=== PATIENT | female | born 1950 | race Caucasian/White ===

== ENCOUNTER 2019-02-28 13:55 | Emergency (ER) | payer MEDICARE, OTHER ==
[~2019-02-28] VITALS: Ht 165 cm; Wt 90.9 kg
[2019-02-28] MEDS ORDERED: NS IV 500 ML 500 ML IV ONE (14:27)
[2019-02-28 14:32] LABS: BASOPHILS % (AUTO) 0 % (0-10); EOSINOPHILS # (AUTO) 0.2 10^3/uL (0.0-0.3); EOSINOPHILS % (AUTO) 3 % (0-10); HEMATOCRIT 39 % (35-52); HEMOGLOBIN 13.4 G/DL (11.5-16.0); LYMPHOCYTES # (AUTO) 1.4 X 10^3 (1.0-4.0); LYMPHOCYTES % (AUTO) 21 % (12-44); MEAN CORPUSCULAR HEMOGLOBIN 28 PG (25-34); MEAN CORPUSCULAR HGB CONC 34 G/DL (32-36); MEAN CORPUSCULAR VOLUME 83 FL (80-99); MEAN PLATELET VOLUME 9.3 FL (7.4-10.4); MONOCYTES # (AUTO) 0.3 X 10^3 (0.0-1.0); MONOCYTES % (AUTO) 5 % (0-12); NEUTROPHILS # (AUTO) 4.9 X 10^3 (1.8-7.8); NEUTROPHILS % (AUTO) 72 % (42-75); PLATELET COUNT 244 10^3/uL (130-400); RED CELL DISTRIBUTION WIDTH 13.4 % (10.0-14.5); WHITE BLOOD COUNT 6.9 10^3/uL (4.3-11.0)
--- NOTE | 2019-02-28 14:43 | ED GU-Female ---
General Chief Complaint: [employer] Stated Complaint: ABNORMAL US Nursing Triage Note: HX OF VAGINAL BLEEDING BUT YESTERDAY IT BECAME HEAVY AND TODAY IS PASSING LARGE CLOTS. BROUGHT OVER FROM ULTRASOUND. Nursing Sepsis Screen: No Definite Risk Source: patient, spouse Exam Limitations: no limitations History of Present Illness Date Seen by Provider: Feb 28, 2019 Time Seen by Provider: 14:15 Initial Comments Patient presents to ER by private conveyance from Dr. Urban's clinic with chief complaint last 3 days having some vaginal bleeding being worked up. A CT was obtained. Some samples of the cervix were obtained in the clinic today. It causes her some discomfort but she does not want anything for the pain right now. She had blood obtained couple days ago by Shira maynard and hemoglobin that point was reported as 14 with a hematocrit of 39% when she called report. The patient's not having any nausea but she has had some dysuria with history of recent UTIs. She also has IBS C and had a good bowel movement yesterday. Her last oral intake was this morning at about 8:00 in the morning. She has a history of cholecystectomy and appendectomy but no hysterectomy or tubal ligation. She does not follow with a machine former routinely. Allergies and Home Medications Allergies Coded Allergies: Penicillins (Verified Allergy, Severe, SOA, 02/28/19) ciprofloxacin (Verified Allergy, Severe, BURNING SENSATION, 02/28/19) Sulfa (Sulfonamide Antibiotics) (Verified Allergy, Unknown, 02/28/19) bacitracin (Verified Allergy, Unknown, 02/28/19) Patient Home Medication List Home Medication List Reviewed: Yes Review of Systems Review of Systems Constitutional: No chills, No diaphoresis EENTM: No ear discharge, No ear pain Respiratory: No cough, No short of breath Cardiovascular: No chest pain, No edema Gastrointestinal: No abdominal pain, No nausea, No vomiting Genitourinary: burning, discharge (bloody), dysuria Musculoskeletal: No back pain, No joint pain Past Dzdkdop-Dczbuq-Mzopxq Hx Patient Social History Alcohol Use: Denies Use Recreational Drug Use: No Smoking Status: Never a Smoker Recent Foreign Travel: No Contact w/Someone Who Travel: No Recent Infectious Disease Expo: No Recent Hopitalizations: No Past Medical History Surgeries: Yes Appendectomy, Gallbladder, Tonsillectomy Respiratory: No Cardiac: Yes Hypertension Neurological: Yes Traumatic Brain Injury Genitourinary: No Gastrointestinal: No Musculoskeletal: No Endocrine: Yes (PRE DIABETIC) Cancer: No Psychosocial: No Integumentary: No Physical Exam Vital Signs Vital Signs - First Documented 02/28/19 14:02 Temp 36.4 Pulse 88 Resp 16 B/P (MAP) 109/71 (84) Pulse Ox 96 O2 Delivery Room Air Capillary Refill : Less Than 3 Seconds Height, Weight, BMI Height: '" Weight: lbs. oz. kg; 33.00 BMI Method: General Appearance: WD/WN, no apparent distress HEENT: PERRL/EOMI, pharynx normal Neck: full range of motion, normal inspection Cardiovascular: normal peripheral pulses, regular rate, rhythm Respiratory: no respiratory distress, no accessory muscle use Gastrointestinal: normal bowel sounds, non tender, soft, no organomegaly Pelvic: normal external exam, discharge (bloody discharge with clots seen in the vaginal vault mild amount approximately 30-45 cc total); No mass; other (cervix was not able to be visualized on speculum examination.) Progress/Results/Core Measures Suspected Sepsis Recent Fever Within 48 Hours: No Infection Criteria Present: None New/Unexplained Altered Menta: No Sepsis Screen: No Definite Risk SIRS Temperature: Pulse: 88 Respiratory Rate: 16 Laboratory Tests 02/28/19 14:15: White Blood Count 6.9 Blood Pressure 109 /71 Mean: 84 Laboratory Tests 02/28/19 14:15: Creatinine 0.93, Platelet Count 244, Total Bilirubin 1.1H Results/Orders Lab Results Laboratory Tests Test 02/28/19 14:15 02/28/19 14:50 Range/Units White Blood Count 6.9 4.3-11.0 10^3/uL Red Blood Count 4.74 4.35-5.85 10^6/uL Hemoglobin 13.4 11.5-16.0 G/DL Hematocrit 39 35-52 % Mean Corpuscular Volume 83 80-99 FL Mean Corpuscular Hemoglobin 28 25-34 PG Mean Corpuscular Hemoglobin Concent 34 32-36 G/DL Red Cell Distribution Width 13.4 10.0-14.5 % Platelet Count 244 130-400 10^3/uL Mean Platelet Volume 9.3 7.4-10.4 FL Neutrophils (%) (Auto) 72 42-75 % Lymphocytes (%) (Auto) 21 12-44 % Monocytes (%) (Auto) 5 0-12 % Eosinophils (%) (Auto) 3 0-10 % Basophils (%) (Auto) 0 0-10 % Neutrophils # (Auto) 4.9 1.8-7.8 X 10^3 Lymphocytes # (Auto) 1.4 1.0-4.0 X 10^3 Monocytes # (Auto) 0.3 0.0-1.0 X 10^3 Eosinophils # (Auto) 0.2 0.0-0.3 10^3/uL Basophils # (Auto) 0.0 0.0-0.1 10^3/uL Sodium Level 134 L 135-145 MMOL/L Potassium Level 3.9 3.6-5.0 MMOL/L Chloride Level 96 L 98-107 MMOL/L Carbon Dioxide Level 29 21-32 MMOL/L Anion Gap 9 5-14 MMOL/L Blood Urea Nitrogen 11 7-18 MG/DL Creatinine 0.93 0.60-1.30 MG/DL Estimat Glomerular Filtration Rate 60 BUN/Creatinine Ratio 12 Glucose Level 351 H 70-105 MG/DL Calcium Level 9.0 8.5-10.1 MG/DL Corrected Calcium 9.2 8.5-10.1 MG/DL Total Bilirubin 1.1 H 0.1-1.0 MG/DL Aspartate Amino Transf (AST/SGOT) 17 5-34 U/L Alanine Aminotransferase (ALT/SGPT) 11 0-55 U/L Alkaline Phosphatase 98 40-136 U/L Total Protein 7.5 6.4-8.2 GM/DL Albumin 3.7 3.2-4.5 GM/DL Urine Color YELLOW Urine Clarity VERY CLOUDY H Urine pH 5 5-9 Urine Specific [place] 1.010 L 1.016-1.022 Urine Protein 2+ H NEGATIVE Urine Glucose (UA) 4+ H NEGATIVE Urine Ketones 3+ H NEGATIVE Urine Nitrite POSITIVE H NEGATIVE Urine Bilirubin NEGATIVE NEGATIVE Urine Urobilinogen NORMAL NORMAL MG/DL Urine Leukocyte Esterase 3+ H NEGATIVE Urine RBC (Auto) 5+ H NEGATIVE Urine RBC NONE /HPF Urine WBC TNTC H /HPF Urine Crystals NONE /LPF Urine Bacteria LARGE H /HPF Urine Casts NONE /LPF Urine Mucus NEGATIVE /LPF Urine Culture Indicated YES Micro Results Microbiology 02/28/19 Wet Prep - Final, Complete My Orders Orders - KWASI PEREZ Cbc With Automated Diff (02/28/19 14:03) Comprehensive Metabolic Panel (02/28/19 14:03) Ua Culture If Indicated (02/28/19 14:03) Straight Cath For Spec.-Adult (02/28/19 14:08) Ed Iv/Invasive Line Start (02/28/19 14:27) Ns Iv 500 Ml (Sodium Chloride 0.9%) (02/28/19 14:27) Wet Prep (02/28/19 14:27) Insulin (Regular) Human (Humulin R (Per (02/28/19 15:30) Urine Culture (02/28/19 14:50) Ceftriaxone For Iv Use (Rocephin For I (02/28/19 16:15) Accucheck Stat ONCE (02/28/19 16:16) Medications Given in ED Current Medications Medications Dose Ordered Sig/Jorge A Route Start Time Stop Time Status Last Admin Dose Admin Ceftriaxone Sodium 1000 mg/ Sterile Water 10 ml @ 200 mls/hr ONCE ONCE IV 02/28/19 16:15 02/28/19 16:17 DC 02/28/19 16:32 200 MLS/HR Insulin Human Regular 5 unit ONCE ONCE SC 02/28/19 15:30 02/28/19 15:31 DC 02/28/19 15:32 5 UNIT Sodium Chloride 500 ml @ 0 mls/hr Q0M ONCE IV 02/28/19 14:27 02/28/19 14:28 DC 02/28/19 14:32 500 MLS/HR Vital Signs/I&O 02/28/19 14:02 Temp 36.4 Pulse 88 Resp 16 B/P (MAP) 109/71 (84) Pulse Ox 96 O2 Delivery Room Air Capillary Refill : Less Than 3 Seconds Blood Pressure Mean: 84 Progress Note #1: Time: 16:16 Progress Note Urinalysis consistent with a bladder infection. We'll give her Rocephin. Her allergy to penicillin is very vague. We put a call into Dr. Lee the gy necologist on-call but he is in the middle of a and let them to call us back. The patient is okay with waiting. Hemoglobin is stable. Plan to repeat Accu-Chek after the 5 units of regular insulin were given for her elevated blood sugar. She is clearly diabetic based on a random blood sugar above 220. Did not visualize cervix and did not think it was a very good idea to clean the clots out since her bleeding is hemostatic at this time. Progress Note #2: Time: 16:41 Progress Note Blood sugars improved to 289. We'll have her follow-up with primary care in short order. Called left a voicemail with her primary care clinic. Diagnostic Imaging Diagonstic Imaging: CT Comments [facility]. [place], [place] NAME: PATRICK NAVARRO [place] REC#: [id number] PT STATUS: REG CLI : 1950 PHYSICIAN: SHIRA MAYNARDP ADMIT DATE: 02/28/19/RAD Draft Date of Exam:02/28/19 CT ABDOMEN/PELVIS W WO PROCEDURE: CT abdomen and pelvis with and without contrast. TECHNIQUE: Precontrast acquisitions were acquired through the abdomen and pelvis. Multiple contiguous axial images were obtained through the abdomen and pelvis after the administration of intravenous contrast. Auto Exposure Controls were utilized during the CT exam to meet ALARA standards for radiation dose reduction. INDICATION: Vaginal bleeding for the last two days. COMPARISON: No prior studies are available for comparison. FINDINGS: The lung bases are clear. No discrete liver mass is identified. Gallbladder appears to be surgically absent. No biliary ductal dilatation is seen. The pancreas and spleen are unremarkable. No adrenal mass is detected. Multiple small 2-3 mm nonobstructing calculi within the right kidney are noted. There are also multiple calculi in the left kidney, largest located in the left renal pelvis measuring approximately 15 mm x 8 mm. There is gas identified within the left renal collecting system. No definite renal parenchymal gas is present. 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 No definite ureteral or bladder calculi are seen. There is trace gas within the decompressed urinary bladder. Aorta is non-aneurysmal. No central retroperitoneal or mesenteric lymphadenopathy is seen. The small and large bowel loops are normal in caliber. There is significant diverticulosis of the sigmoid colon but no evidence of acute diverticulitis. There are enlarged lymph nodes in the pelvis in the obturator regions bilaterally. A lymph node on the right measures 3.5 x 3.0 cm. Left obturator node measures approximately 3.8 x 2.8 cm. No inguinal lymphadenopathy is seen. No free fluid or loculated fluid collection is identified. Bony structures are nonacute. IMPRESSION: 1. Bilateral nephrolithiasis. There is a large stone in the left renal pelvis producing mild hydronephrosis measuring 15 mm x 8 mm. In addition, there is a large amount of gas within the left renal collecting system consistent with emphysematous pyelitis. No ureteral calculi are seen. Trace gas in the bladder is also noted. 2. Bilateral obturator pelvic lymphadenopathy, concerning for neoplasm or lymphoma. No other areas of lymphadenopathy are identified. 3. Diverticulosis without evidence of acute diverticulitis. Report was faxed to office of Shira DUFFY by nina at 1:40 p.m. Dictated on workstation # [id number] Dict: 02/28/19 1252 Trans: 02/28/19 1338 NINA [id number] Interpreted by: LORENA YANG MD Electronically signed by: Reviewed: Reviewed by Me Consults Consults : Consulting Physician: MARIANA LEE MD Consults Notes Discussed the case with Dr. Lee and he agrees with patient following up with primary care for appropriate referral where they want to send her. Departure Communication (PCP) [id number]: Shira Maynard: Left a voicemail. 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 Decision time for Depature: 16:35 Referrals: OBINNA URBAN DNP (PCP/Family) Primary Care Physician Patient Instructions: Urinary Tract Infections in Adults Add. Discharge Instructions: Start Keflex one capsule twice a day for the next 7 days tomorrow. Drink plenty of fluids. Tomorrow call and follow-up with your primary care office to discuss further outpatient workup. All discharge instructions reviewed with patient and/or family. Voiced understa nding. Scripts Cephalexin (Keflex) 500 Mg Capsule 500 MG PO BID for 7 Days, #14 CAP 0 Refills Prov: KWASI PEREZ 02/28/19 Copy Copies To 1: RUSSELL URBAN DO KWASI PEREZ Feb 28, 2019 14:43
[2019-02-28 14:47] LABS: ALBUMIN 3.7 GM/DL (3.2-4.5); BILIRUBIN,TOTAL 1.1 MG/DL (0.1-1.0); CREATININE SERUM 0.93 MG/DL (0.60-1.30); POTASSIUM 3.9 MMOL/L (3.6-5.0); TOTAL PROTEIN 7.5 GM/DL (6.4-8.2)
[2019-02-28 15:13] LABS: BILIRUBIN,URINE NEGATIVE (NEGATIVE); CLARITY,URINE VERY CLOUDY; COLOR,URINE YELLOW; GLUCOSE, URINE (UA) 4+ (NEGATIVE); KETONES,URINE 3+ (NEGATIVE); LEUKOCYTE ESTERASE ,URINE 3+ (NEGATIVE); NITRITE,URINE POSITIVE (NEGATIVE); PH,URINE 5 (5-9); PROTEIN,URINE 2+ (NEGATIVE)
[2019-02-28 15:22] LABS: BACTERIA,URINE LARGE /HPF; WBC,URINE TNTC /HPF
[2019-02-28] MEDS ORDERED: inSUlin (REGULAR) HUMAN 1 UNIT/0.01 ML (CHARGE PER UNIT) SC ONE (15:30)
--- NOTE | 2019-02-28 15:57 | NUR ---
PT ASSISTED UP TO [facility]
[2019-02-28] MEDS ORDERED: cefTRIAXone FOR IV USE 1,000 MG in WATER (STERILE) FOR INJECTION 10 ML IV ONE (16:15)
[2019-02-28] MEDS ORDERED: CEPH-507 PO (16:50)
[2019-02-28 17:28] VITALS: BP 109/71
== END 2019-02-28 17:27 | disposition home or self-care (01) ==
LOC: EDUNIT# 13:55 → ER 13:56
DX: I77.9 Disorder of arteries and arterioles, unspecified (principal); N95.0 Postmenopausal bleeding; N39.0 Urinary tract infection, site not specified; I10 Essential (primary) hypertension; Z87.820 Personal history of traumatic brain injury; Z90.49 Acquired absence of other specified parts of digestive tract; Z88.0 Allergy status to penicillin; Z88.1 Allergy status to other antibiotic agents; Z88.2 Allergy status to sulfonamides; Z88.8 Allergy status to other drugs, medicaments and biological substances; Z90.89 Acquired absence of other organs
CPT/HCPCS: 36415; 51701; 80053; 81000; 85025; 87077; 87088; 87186; 87210; 96365; 96372

== ENCOUNTER → 2019-02-28 | Outpatient (CLI) | payer MEDICARE, OTHER ==
[~2019-02-28] MED LIST: CATHETER FLUSH 10 ML SYR IV PRN; CEPH-507 PO; HOLD METFORMIN - RECEIVED CONTRAST 20 ML VIAL IV SCH; IOHEXOL 350 MG/ML 100 ML (OMNIPAQUE 350) VIAL IV ONE; NS 100 ML (IVPB) BAG IV ONE
--- NOTE | 2019-02-28 13:40 | Diagnostic Imaging Report ---
PROCEDURE: CT abdomen and pelvis with and without contrast. TECHNIQUE: Precontrast acquisitions were acquired through the abdomen and pelvis. Multiple contiguous axial images were obtained through the abdomen and pelvis after the administration of intravenous contrast. Auto Exposure Controls were utilized during the CT exam to meet ALARA standards for radiation dose reduction. INDICATION: Vaginal bleeding for the last two days. COMPARISON: No prior studies are available for comparison. FINDINGS: The lung bases are clear. No discrete liver mass is identified. Gallbladder appears to be surgically absent. No biliary ductal dilatation is seen. The pancreas and spleen are unremarkable. No adrenal mass is detected. Multiple small 2-3 mm nonobstructing calculi within the right kidney are noted. There are also multiple calculi in the left kidney, largest located in the left renal pelvis measuring approximately 15 mm x 8 mm. There is gas identified within the left renal collecting system. No definite renal parenchymal gas is present. 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 No definite ureteral or bladder calculi are seen. There is trace gas within the decompressed urinary bladder. Aorta is non-aneurysmal. No central retroperitoneal or mesenteric lymphadenopathy is seen. The small and large bowel loops are normal in caliber. There is significant diverticulosis of the sigmoid colon but no evidence of acute diverticulitis. There are enlarged lymph nodes in the pelvis in the obturator regions bilaterally. A lymph node on the right measures 3.5 x 3.0 cm. Left obturator node measures approximately 3.8 x 2.8 cm. No inguinal lymphadenopathy is seen. No free fluid or loculated fluid collection is identified. Bony structures are nonacute. IMPRESSION: 1. Bilateral nephrolithiasis. There is a large stone in the left renal pelvis producing mild hydronephrosis measuring 15 mm x 8 mm. In addition, there is a large amount of gas within the left renal collecting system consistent with emphysematous pyelitis. No ureteral calculi are seen. Trace gas in the bladder is also noted. 2. Bilateral obturator pelvic lymphadenopathy, concerning for neoplasm or lymphoma. No other areas of lymphadenopathy are identified. 3. Diverticulosis without evidence of acute diverticulitis. Report was faxed to office of Alicja DUFFY by chepe at 1:40 p.m. Dictated by: Dictated on workstation # [id number]
--- NOTE | 2019-02-28 14:32 | Diagnostic Imaging Report ---
PROCEDURE: US Non-OB pelvis comp/trans. TECHNIQUE: Multiple realtime grayscale images were obtained of the pelvis in various projections endovaginally. Transabdominal imaging was also performed. INDICATION: Vaginal bleeding. FINDINGS: The uterus measures 7.8 x 5.0 x 4.9 cm. Endometrium is abnormally thickened measuring up to 19 mm. Ill-defined rounded area of heterogeneity in the region of the cervix is noted measuring approximately 14 mm x 11 mm. Cervical mass cannot be excluded. Ovaries were not visualized. No adnexal mass is seen. IMPRESSION: 1. Abnormally thickened endometrium up to 19 mm. Endometrial neoplasia cannot be entirely excluded. 2. Findings suspicious for a small cervical mass. Dictated by: Dictated on workstation # [id number]
== END ==
LOC: RAD 11:58
PROVIDERS: ATTEND Nurse Practitioner
DX: Z01.411 Encounter for gynecological examination (general) (routine) with abnormal findings (principal); N95.0 Postmenopausal bleeding; N88.8 Other specified noninflammatory disorders of cervix uteri; N13.2 Hydronephrosis with renal and ureteral calculous obstruction; R59.0 Localized enlarged lymph nodes; K57.30 Diverticulosis of large intestine without perforation or abscess without bleeding
CPT/HCPCS: 74178; 76830; 76856

== ENCOUNTER 2019-03-01 08:09 | Emergency (ER) | payer MEDICARE, OTHER ==
[~2019-03-01] VITALS: Ht 165.1 cm; Wt 90.9 kg
[~2019-03-01 08:09] MED LIST changes: -CATHETER FLUSH 10 ML SYR IV PRN; -HOLD METFORMIN - RECEIVED CONTRAST 20 ML VIAL IV SCH; -IOHEXOL 350 MG/ML 100 ML (OMNIPAQUE 350) VIAL IV ONE; -NS 100 ML (IVPB) BAG IV ONE
--- NOTE | 2019-03-01 08:32 | ED GU-Female ---
General Stated Complaint: VAGINAL BLEEDING Source: patient, family (), EMS ([facility]) Exam Limitations: no limitations History of Present Illness Date Seen by Provider: Mar 01, 2019 Time Seen by Provider: 08:06 Initial Comments Patient presents to ER from her home by EMS in [place], [place] with chief complaint of vaginal bleeding mild pelvic cramping similar to menstrual cramps. She has a known lesion and CT findings concerning for malignancy and is being worked up by Alicja Hoffman and primary care with Dr. Urban. The bleeding is going on for 3 days. He was seen in the ER yesterday by this provider and had a normal hemoglobin of 13.8. This morning she woke up with significant bright red bleeding through her clothing and pads using multiple pads per hour. EMS reports they changed her and packed her and she bled through your packing and clothing between home and the ER. She's not on a blood thinner. She does not want anything for pain. She had plans to follow-up with primary care today to further her workup. Allergies and Home Medications Allergies Coded Allergies: Penicillins (Verified Allergy, Severe, SOA, 02/28/19) ciprofloxacin (Verified Allergy, Severe, BURNING SENSATION, 02/28/19) Sulfa (Sulfonamide Antibiotics) (Verified Allergy, Unknown, 02/28/19) bacitracin (Verified Allergy, Unknown, 02/28/19) Home Medications Cephalexin 500 Mg Capsule, 500 MG PO BID Prescribed by: KWASI PEREZ on 02/28/19 1650 Patient Home Medication List Home Medication List Reviewed: Yes Review of Systems Review of Systems Constitutional: No chills, No diaphoresis EENTM: No ear discharge, No ear pain Respiratory: No cough, No short of breath Cardiovascular: No chest pain, No edema Gastrointestinal: abdominal pain; No constipation, No nausea, No vomiting Genitourinary: see HPI, discharge; denies dysuria Past Ixmwntb-Xujglc-Jdjegi Hx Patient Social History Alcohol Use: Denies Use Recreational Drug Use: No Recent Hopitalizations: No Past Medical History Surgeries: Yes Appendectomy, Gallbladder, Tonsillectomy Respiratory: No Cardiac: Yes Hypertension Neurological: Yes Traumatic Brain Injury Genitourinary: No Gastrointestinal: No Musculoskeletal: No Endocrine: Yes (PRE DIABETIC) Cancer: No Psychosocial: No Integumentary: No Physical Exam Vital Signs Vital Signs - First Documented 03/01/19 08:09 Temp 36.5 Pulse 89 Resp 18 B/P (MAP) 110/72 (85) Pulse Ox 99 O2 Delivery Room Air Capillary Refill : Height, Weight, BMI Height: '" Weight: lbs. oz. kg; 33.00 BMI Method: General Appearance: WD/WN, mild distress HEENT: PERRL/EOMI, pharynx normal Cardiovascular: normal peripheral pulses, regular rate, rhythm Respiratory: lungs clear, normal breath sounds, no respiratory distress, no accessory muscle use Gastrointestinal: normal bowel sounds, non tender, soft Pelvic: tender uterus, vaginal bleeding (probably about 500cc clot in the underwear) Extremities: normal range of motion, non-tender, normal capillary refill Neurologic/Psychiatric: no motor/sensory deficits, alert, normal mood/affect, oriented x 3 Skin: normal color, warm/dry Procedures/Interventions Lumen: triple (7 Serbian 20 cm) Central Line Procedure: betadine prep (chlorhexidine), sterile drapes applied, sterile dressing applied Position: internal jugular (R) Anesthesia: Lidocaine Volume Anesthetic (ccs): 3 Complications: none Post Position: sutured, good blood return, position confirmed w/ CXR Risks, benefits alternatives were splinted to patient she consented verbally. We checked the site using ultrasound had a good access in the right IJ so draped her out in the usual sterile fashion toward down gloves and a cap. Then accessed her right IJ using the supplied introducer needle. We used ultrasound guidance to watch the tip into the right IJ got good blood return. Easily passed a guidewire on first attempt. Made a small brody in the skin using 11 blade scalpel. Removed the needle and passed a dilator. Dilator was removed and the triple-lumen was threaded over the central lumen on the guidewire. Guidewire was removed triple-lumen was placed at 13 cm. Was stitched in place [address] aces and Biopatch was then placed. A sterile clear occlusive dressing was placed. Patient tolerated procedure well. X-ray demonstrated good position without pneumothorax or other consultation. Flushed and withdrew easily. Progress/Results/Core Measures Suspected Sepsis SIRS Temperature: Pulse: Respiratory Rate: Laboratory Tests 03/01/19 08:32: White Blood Count 8.3 Blood Pressure / Mean: Laboratory Tests 03/01/19 08:32: Creatinine 0.99, Platelet Count 257, Total Bilirubin 0.8 Results/Orders Lab Results Laboratory Tests Test 03/01/19 08:32 03/01/19 11:10 Range/Units White Blood Count 8.3 4.3-11.0 10^3/uL Red Blood Count 3.88 L 4.35-5.85 10^6/uL Hemoglobin 10.8 L 11.5-16.0 G/DL Hematocrit 32 L 35-52 % Mean Corpuscular Volume 83 80-99 FL Mean Corpuscular Hemoglobin 28 25-34 PG Mean Corpuscular Hemoglobin Concent 33 32-36 G/DL Red Cell Distribution Width 13.4 10.0-14.5 % Platelet Count 257 130-400 10^3/uL Mean Platelet Volume 9.3 7.4-10.4 FL Neutrophils (%) (Auto) 82 H 42-75 % Lymphocytes (%) (Auto) 13 12-44 % Monocytes (%) (Auto) 4 0-12 % Eosinophils (%) (Auto) 1 0-10 % Basophils (%) (Auto) 0 0-10 % Neutrophils # (Auto) 6.8 1.8-7.8 X 10^3 Lymphocytes # (Auto) 1.1 1.0-4.0 X 10^3 Monocytes # (Auto) 0.3 0.0-1.0 X 10^3 Eosinophils # (Auto) 0.1 0.0-0.3 10^3/uL Basophils # (Auto) 0.0 0.0-0.1 10^3/uL Sodium Level 137 135-145 MMOL/L Potassium Level 4.1 3.6-5.0 MMOL/L Chloride Level 100 98-107 MMOL/L Carbon Dioxide Level 25 21-32 MMOL/L Anion Gap 12 5-14 MMOL/L Blood Urea Nitrogen 13 7-18 MG/DL Creatinine 0.99 0.60-1.30 MG/DL Estimat Glomerular Filtration Rate 55 BUN/Creatinine Ratio 13 Glucose Level 374 H 70-105 MG/DL Calcium Level 8.5 8.5-10.1 MG/DL Corrected Calcium 9.1 8.5-10.1 MG/DL Total Bilirubin 0.8 0.1-1.0 MG/DL Aspartate Amino Transf (AST/SGOT) 13 5-34 U/L Alanine Aminotransferase (ALT/SGPT) 6 0-55 U/L Alkaline Phosphatase 69 40-136 U/L Total Protein 6.4 6.4-8.2 GM/DL Albumin 3.2 3.2-4.5 GM/DL Glucometer 285 H 70-110 MG/DL My Orders Orders - ANAKWASI GARRETT Cbc With Automated Diff (03/01/19 08:23) Comprehensive Metabolic Panel (03/01/19 08:23) Type And Screen (03/01/19 08:23) Ed Iv/Invasive Line Start (03/01/19 08:38) Ns Iv 1000 Ml (Sodium Chloride 0.9%) (03/01/19 08:38) Tranexamic Acid Injection (Cyklokapron I (03/01/19 08:45) Ns (Ivpb) (Sodium C... W/Tranexamic Acid (03/01/19 08:45) Insulin (Regular) Human (Humulin R (Per (03/01/19 08:45) Ceftriaxone For Iv Use (Rocephin For I (03/01/19 08:45) Vital Signs: Special (Order) (03/01/19 10:03) Consent-Obtain Consent For (03/01/19 10:03) Blood Product Warmer (03/01/19 10:03) Monitor S/S Transfusion Reacti (03/01/19 10:03) Ns Iv 500 Ml (Sodium Chloride 0.9%) (03/01/19 10:03) Initiate Massive Transfusion P (03/01/19 10:03) Chest 1 View, Ap/Pa Only (03/01/19 10:05) Fresh Frozen Plasma (03/01/19 08:32) Red Cells Leukocytes Reduced (03/01/19 08:32) Ns (Ivpb) (Sodium Chloride 0.9%) (03/01/19 10:36) Norepinephrine (Levophed) (03/01/19 10:36) Accucheck Stat ONCE (03/01/19 10:41) Medications Given in ED Current Medications Medications Dose Ordered Sig/Jorge A Route Start Time Stop Time Status Last Admin Dose Admin Ceftriaxone Sodium 1000 mg/ Sterile Water 10 ml @ 200 mls/hr ONCE ONCE IV 03/01/19 08:45 03/01/19 08:47 DC 03/01/19 09:52 200 MLS/HR Insulin Human Regular 5 unit ONCE ONCE SC 03/01/19 08:45 03/01/19 08:46 DC 03/01/19 09:08 5 UNIT Norepinephrine 4 mg STK-MED ONCE IV 03/01/19 10:36 03/01/19 10:39 DC 03/01/19 11:28 4 MG Sodium Chloride 250 ml @ ud STK-MED ONCE .ROUTE 03/01/19 10:36 03/01/19 10:39 DC 03/01/19 11:28 250 MLS/HR Tranexamic Acid 1000 mg/Sodium Chloride 110 ml @ 330 mls/hr ONCE ONCE IV 03/01/19 08:45 03/01/19 09:04 DC 03/01/19 09:09 330 MLS/HR Vital Signs/I&O 03/01/19 03/01/19 08:09 11:28 Temp 36.5 Pulse 89 95 Resp 18 18 B/P (MAP) 110/72 (85) 110/72 Pulse Ox 99 99 O2 Delivery Room Air Room Air Capillary Refill : Progress Note #1: Time: 08:36 Progress Note Blood pressure was okay initially and 10 systolic in the 90s. We've opened up the liter that she started by EMS to wide open. If Her blood pressure stays like this despite fluids we will give her some TXA. She doesn't want anything for pain at the moment. Type and screen, labs. Since she's losing whole blood it is possible that her Hemoglobin may yet be ok. Progress Note #2: Time: 10:56 Progress Note Primary care office faxed over results of ultrasound showing thickened endometrium. The preliminary results from pathology show atypical glandular cells of uncertain significance favor endometrial. Diagnostic Imaging Diagonstic Imaging: Xray Plain Films/CT/US/NM/MRI: chest (1v) Comments No pneumothorax. There is a new central line that does not cross the midline and terminates at the level of the superior vena cava just above the right atrium. NAME: PATRICK NAVARRO MED REC#: [id number] PHYSICIAN: KWASI PEREZ MD CC: OLI ROBLEDO DO; KWASI PEREZ Page 1 of 1 [facility]OLOG[facility] REPORT [facility] [place] [place] CC: OLI ROBLEDO DO; KWASI PEREZ Page 1 of 1 RADIOLOGY REPORT NAME: PATRICK NAVARRO [facility] REC#: [id number] PT STATUS: REG ER : 1950 PHYSICIAN: KWASI PEREZ MD ADMIT DATE: 03/01/19/ER Signed Date of Exam: 03/01/19 CHEST 1 VIEW, AP/PA ONLY INDICATION: Vaginal bleeding. Evaluate central line placement. TECHNIQUE: Single frontal view of the chest COMPARISON: None FINDINGS: A right internal jugular approach central line is visualized the tip overlying the mid SVC. The lung volumes are normal. No focal consolidation is seen. No large pleural effusion or pneumothorax is seen. The cardiomediastinal silhouette is normal in size and contour. No acute osseous abnormality is seen. IMPRESSION: 1. Right internal jugular central line with the tip overlying the mid SVC. No evidence of pneumothorax. Dictated by: Dictated on workstation # [id number] Dict: 03/01/19 1047 Trans: 03/01/19 1105 Interpreted by: OLI ROBLEDO DO Electronically signed by: OLI ROBLEDO DO 03/01/19 1105 Reviewed: Reviewed by Me Departure Impression Primary Impression: Hemorrhagic shock Additional Impressions: Cervical mass Vaginal bleeding Disposition: [facility] Condition: Critical Transfer Transfer Reason: Exceeds level of care Time Spoke to Accepting Phy: 10:30 Transfer Progress Notes 1055: Discussed case with Dr. Justice, critical care and they accept the patient for admission at [facility]. We discussed intervention and that we would be sending the patient with blood, Levophed and already maxed out IV fluids. Transfer Time: 11:28 Transfer Facility: [facility] Method of Transfer: Air (Aero care) Departure-Patient Inst. Referrals: RUSSELL URBAN DO (PCP) Primary Care Physician OBINNA URBAN DNP (Family) Primary Care Physician KWASI PEREZ Mar 01, 2019 08:32
[2019-03-01 08:36] LABS: BASOPHILS % (AUTO) 0 % (0-10); EOSINOPHILS # (AUTO) 0.1 10^3/uL (0.0-0.3); EOSINOPHILS % (AUTO) 1 % (0-10); HEMATOCRIT 32 % (35-52); HEMOGLOBIN 10.8 G/DL (11.5-16.0); LYMPHOCYTES # (AUTO) 1.1 X 10^3 (1.0-4.0); LYMPHOCYTES % (AUTO) 13 % (12-44); MEAN CORPUSCULAR HEMOGLOBIN 28 PG (25-34); MEAN CORPUSCULAR HGB CONC 33 G/DL (32-36); MEAN CORPUSCULAR VOLUME 83 FL (80-99); MEAN PLATELET VOLUME 9.3 FL (7.4-10.4); MONOCYTES # (AUTO) 0.3 X 10^3 (0.0-1.0); MONOCYTES % (AUTO) 4 % (0-12); NEUTROPHILS # (AUTO) 6.8 X 10^3 (1.8-7.8); NEUTROPHILS % (AUTO) 82 % (42-75); PLATELET COUNT 257 10^3/uL (130-400); RED CELL DISTRIBUTION WIDTH 13.4 % (10.0-14.5); WHITE BLOOD COUNT 8.3 10^3/uL (4.3-11.0)
[2019-03-01] MEDS ORDERED: NS IV 1000 ML 1,000 ML IV SCH (08:38)
[2019-03-01] MEDS ORDERED: TRANEXAMIC ACID INJECTION 1,000 MG in NS (IVPB) 100 ML IV ONE (08:45)
[2019-03-01] MEDS ORDERED: inSUlin (REGULAR) HUMAN 1 UNIT/0.01 ML (CHARGE PER UNIT) SC ONE (08:45)
[2019-03-01] MEDS ORDERED: cefTRIAXone FOR IV USE 1,000 MG in WATER (STERILE) FOR INJECTION 10 ML IV ONE (08:45)
[2019-03-01 08:53] LABS: ALBUMIN 3.2 GM/DL (3.2-4.5); BILIRUBIN,TOTAL 0.8 MG/DL (0.1-1.0); CALCIUM 8.5 MG/DL (8.5-10.1); CREATININE SERUM 0.99 MG/DL (0.60-1.30); POTASSIUM 4.1 MMOL/L (3.6-5.0); TOTAL PROTEIN 6.4 GM/DL (6.4-8.2)
[2019-03-01] MEDS: TRANEXAMIC ACID INJECTION 1,000 MG in NS (IVPB) 250 ML IV SCH ×2 (09:08→09:27)
--- NOTE | 2019-03-01 09:53 | NUR ---
SYSTOLIC B/P 60 NOTIFED. Addendum: 03/01/19 at 1004 by PMCCLURE PLACED IN PLACED IN [facility]
[2019-03-01] MEDS ORDERED: NS IV 500 ML 500 ML IV SCH (10:03)
--- NOTE | 2019-03-01 10:03 | NUR ---
CALLED LAB FOR BLOOD.
--- NOTE | 2019-03-01 10:04 | NUR ---
B/P 103/55
--- NOTE | 2019-03-01 10:04 | NUR ---
Blood bank contacted, massive transfusion protocol initiated at this time per Dr Ortez order
--- NOTE | 2019-03-01 10:06 | NUR ---
EMS FLUIDS IN
--- NOTE | 2019-03-01 10:06 | NUR ---
DR TO ROOM TO PLACE CENTRAL LINE
--- NOTE | 2019-03-01 10:11 | NUR ---
CONSENT SIGNED FOR BLOOD AND CENTRAL LINE [facility] PATIENT GAVE VERBAL CONSENT. Alec GARCIA RN WITNESS.
--- NOTE | 2019-03-01 10:28 | NUR ---
CENTRAL LINE PLACED BY DR PEREZ
[2019-03-01] MEDS ORDERED: NOREPINEPHRINE 4 MG/4 ML (LEVOPHED) AMP IV ONE (10:36)
[2019-03-01] MEDS ORDERED: NS (IVPB) 250 ML ONE (10:36)
--- NOTE | 2019-03-01 10:38 | NUR ---
ON DISCHARGE 2 UNITS OF BLOOD INFUSED AND 2 UNITS OF FFP. TXA CON'T TO INFUSE PER INFUSION PUMB. PATIENT CHANCED ON DISCHARGE. LG CLOT'S NOTED IN PAD.
--- NOTE | 2019-03-01 10:40 | NUR ---
1ST UNIT IN 2ND HUNG
--- NOTE | 2019-03-01 10:42 | NUR ---
1042 1ST UNIT STARTED 1042 INFUSED 1054 1055 FFP STARTED INFUSED 1102 1032 2 UNIT OF BLOOD STARTED INFUSED 1040 1103 FFP INFUSED 1109
--- NOTE | 2019-03-01 10:44 | NUR ---
David brewer in ED - 03/01/19 at 1046 by PMCCLURE CEBTRAL LINE OK TO USE
--- NOTE | 2019-03-01 10:44 | NUR ---
CENTRAL LINE CLEARED TO USE BLOOD CONNECTED TO CENTRAL LINE
--- NOTE | 2019-03-01 10:50 | Diagnostic Imaging Report ---
INDICATION: Vaginal bleeding. Evaluate central line placement. TECHNIQUE: Single frontal view of the chest COMPARISON: None FINDINGS: A right internal jugular approach central line is visualized the tip overlying the mid SVC. The lung volumes are normal. No focal consolidation is seen. No large pleural effusion or pneumothorax is seen. The cardiomediastinal silhouette is normal in size and contour. No acute osseous abnormality is seen. IMPRESSION: 1. Right internal jugular central line with the tip overlying the mid SVC. No evidence of pneumothorax. Dictated by: Dictated on workstation # [id number]
[2019-03-01 11:28] VITALS: BP 110/72
== END 2019-03-01 11:36 | disposition short-term general hospital (02) ==
LOC: EDUNIT# 08:09 → ER 08:10
DX: R57.8 Other shock (principal); N88.8 Other specified noninflammatory disorders of cervix uteri; N93.9 Abnormal uterine and vaginal bleeding, unspecified; I10 Essential (primary) hypertension; Z87.820 Personal history of traumatic brain injury; Z90.49 Acquired absence of other specified parts of digestive tract; Z90.89 Acquired absence of other organs; Z88.0 Allergy status to penicillin; Z88.2 Allergy status to sulfonamides; Z88.1 Allergy status to other antibiotic agents; Z88.8 Allergy status to other drugs, medicaments and biological substances
CPT/HCPCS: 36415; 71045; 80053; 82962; 85025; 86850; 86900; 86901; 86920; 99291; 99292

== ENCOUNTER 2019-05-18 11:32 | Outpatient (CLI) | payer MEDICARE, OTHER ==
[2019-05-18 11:59] LABS: BASOPHILS % (AUTO) 0 % (0-10); EOSINOPHILS # (AUTO) 0.2 10^3/uL (0.0-0.3); EOSINOPHILS % (AUTO) 2 % (0-10); HEMATOCRIT 32 % (35-52); HEMOGLOBIN 10.6 G/DL (11.5-16.0); LYMPHOCYTES # (AUTO) 0.6 X 10^3 (1.0-4.0); LYMPHOCYTES % (AUTO) 8 % (12-44); MEAN CORPUSCULAR HEMOGLOBIN 30 PG (25-34); MEAN CORPUSCULAR HGB CONC 33 G/DL (32-36); MEAN CORPUSCULAR VOLUME 91 FL (80-99); MEAN PLATELET VOLUME 8.6 FL (7.4-10.4); MONOCYTES # (AUTO) 0.7 X 10^3 (0.0-1.0); MONOCYTES % (AUTO) 9 % (0-12); NEUTROPHILS # (AUTO) 5.6 X 10^3 (1.8-7.8); NEUTROPHILS % (AUTO) 80 % (42-75); PLATELET COUNT 185 10^3/uL (130-400); RED CELL DISTRIBUTION WIDTH 17.6 % (10.0-14.5)
[2019-05-18 12:31] LABS: ALANINE AMINOTRANSFERASE 8 U/L (0-55); ALBUMIN 3.3 GM/DL (3.2-4.5); ALKALINE PHOSPHATASE 61 U/L (40-136); BILIRUBIN,TOTAL 0.6 MG/DL (0.1-1.0); BUN/CREATININE RATIO 16; CALCIUM 8.5 MG/DL (8.5-10.1); CARBON DIOXIDE 25 MMOL/L (21-32); CHLORIDE 103 MMOL/L (98-107); CREATININE SERUM 0.64 MG/DL (0.60-1.30); GFR ESTIMATED > 60; GLUCOSE 113 MG/DL (70-105); MAGNESIUM 1.2 MG/DL (1.6-2.4); POTASSIUM 3.2 MMOL/L (3.6-5.0); SODIUM 139 MMOL/L (135-145); TOTAL PROTEIN 6.2 GM/DL (6.4-8.2)
[2019-05-18 12:53] LABS: FREE T4 (FREE THYROXINE) 1.17 NG/DL (0.70-1.48)
[2019-05-18 13:00] VITALS: BP 132/79
[2019-05-18] MEDS ORDERED: MAGNESIUM 1 GM/100 ML IVPB 200 ML IV ONE (13:15)
[2019-05-18] MEDS: LACTATED RINGERS 1,000 ML IV SCH ×2 (13:47→14:40)
== END 2019-05-18 15:50 | disposition home or self-care (01) ==
LOC: LAB 11:32 → SDC 15:50
PROVIDERS: ATTEND Nurse Practitioner Family
DX: E11.69 Type 2 diabetes mellitus with other specified complication (principal); E86.0 Dehydration; E83.42 Hypomagnesemia; D64.89 Other specified anemias; R06.09 Other forms of dyspnea
CPT/HCPCS: 36415; 80053; 82607; 83540; 83735; 84439; 84443; 85025; 85379; 86141; 96360; 96361

== ENCOUNTER 2019-05-24 12:56 | Outpatient (CLI) | payer MEDICARE, OTHER ==
[2019-05-24] MEDS ORDERED: MAGNESIUM 1 GM/100 ML IVPB 200 ML IV ONE (13:08)
[2019-05-24] MEDS ORDERED: LACTATED RINGERS 2,000 ML IV ONE (13:08)
[2019-05-24 13:25] VITALS: BP 143/73
[2019-05-24] MEDS ORDERED: CATHETER FLUSH 10 ML SYR IV PRN (13:30)
[2019-05-24] MEDS: MAGNESIUM 1 GM/D5W 100 ML IVPB IV SCH ×2 (13:30→14:29)
[2019-05-24] MEDS ORDERED: LACTATED RINGERS 1,000 ML IV SCH (13:30)
== END 2019-05-24 16:10 | disposition home or self-care (01) ==
LOC: SDC 12:56
PROVIDERS: ATTEND Nurse Practitioner Family
DX: E86.0 Dehydration (principal); E83.42 Hypomagnesemia; Z88.0 Allergy status to penicillin; Z88.2 Allergy status to sulfonamides

== ENCOUNTER → 2019-05-28 | Outpatient (CLI) | payer MEDICARE, OTHER | LOC: WOUNDCARE 14:01 | PROVIDERS: ATTEND Preventive Medicine Undersea and Hyperbaric Medicine | DX: I96 Gangrene, not elsewhere classified (principal); L89.323 Pressure ulcer of left buttock, stage 3; D68.9 Coagulation defect, unspecified; N39.0 Urinary tract infection, site not specified | CPT/HCPCS: 11104; 99212 ==

== ENCOUNTER 2019-06-04 15:19 | Emergency (ER) | payer MEDICARE, OTHER ==
[~2019-06-04] VITALS: Ht 165.1 cm; Wt 84.0 kg
--- NOTE | 2019-06-04 15:48 | ED Respiratory ---
General Chief Complaint: Respiratory Problems Stated Complaint: SOA Source: patient Exam Limitations: no limitations History of Present Illness Date Seen by Provider: Jun 04, 2019 Time Seen by Provider: 15:38 Initial Comments Patient presents with shortness of air for the past 3 days, significantly worse today. Worse with exertion. History of present illness, patient recently diagnosed with cervical cancer and has been getting chemotherapy and radiation therapy in [place]. Denies history of blood clots, taking any anticoagulants. Denies any lower extremity or calf pain or unusual swelling. Denies recent illness, upper respiratory sx, fever or chills. Allergies and Home Medications Allergies Coded Allergies: Penicillins (Verified Allergy, Severe, SOA, 02/28/19) ciprofloxacin (Verified Allergy, Severe, BURNING SENSATION, 02/28/19) Sulfa (Sulfonamide Antibiotics) (Verified Allergy, Unknown, 02/28/19) bacitracin (Verified Allergy, Unknown, 02/28/19) Home Medications Albuterol Sulfate 1 Puff Puff, 2 PUFF IH Q4H PRN for cough 1 PUFF = 90 MCG Prescribed by: BINDU JACOBSON on 06/04/19 182 Cephalexin 500 Mg Capsule, 500 MG PO BID Prescribed by: KWASI PEREZ on 02/28/19 1650 Patient Home Medication List Home Medication List Reviewed: Yes Review of Systems Review of Systems Constitutional: see HPI; No dizziness, No fever; malaise; No weakness EENTM: no symptoms reported Respiratory: see HPI, dyspnea on exertion; No hemoptysis, No orthopnea; short of breath; No stridor, No wheezing Cardiovascular: see HPI, chest pain (tightness), edema (chronic, no change); No palpitations, No syncope, No vascular heart diseas Gastrointestinal: No abdominal pain, No loss of appetite, No nausea, No vomiting Musculoskeletal: No back pain, No joint pain Skin: see HPI; No change in color, No pruritus, No rash Past Ojucnwm-Kwyfnv-Bnketn Hx Patient Social History Alcohol Use: Denies Use Recreational Drug Use: No Smoking Status: Never a Smoker 2nd Hand Smoke Exposure: No Recent Foreign Travel: No Contact w/Someone Who Travel: No Recent Hopitalizations: No Physical Abuse: No Sexual Abuse: No Mistreated: No Fear: No Seasonal Allergies Seasonal Allergies: No Past Medical History Surgeries: Yes (Brachytherapy) Appendectomy, Gallbladder, Tonsillectomy Respiratory: No Cardiac: Yes Hypertension Neurological: Yes Traumatic Brain Injury Genitourinary: No Gastrointestinal: No Musculoskeletal: No Endocrine: Yes (PRE DIABETIC) HEENT: No Cancer: Yes Cervical Did You Recieve Any Treatments: Yes What Type of Treatment Did You: Radiation Psychosocial: No Integumentary: No Blood Disorders: No Physical Exam Vital Signs - First Documented 06/04/19 15:25 Temp 37.1 Pulse 89 Resp 23 B/P (MAP) 157/68 (97) Pulse Ox 94 O2 Delivery Room Air Capillary Refill : Height: '" Weight: lbs. oz. kg; 33.00 BMI Method: General Appearance: WD/WN, no apparent distress HEENT: normal ENT inspection, pharynx normal Neck: non-tender, supple Respiratory: chest non-tender, lungs clear, normal breath sounds, no res piratory distress, no accessory muscle use Cardiovascular: regular rate, rhythm, no edema, no gallop, no JVD Gastrointestinal: normal bowel sounds, non tender, soft; No distended, No guarding, No rebound Extremities: normal range of motion, non-tender, normal inspection, no calf tenderness, normal capillary refill Neurologic/Psychiatric: no motor/sensory deficits, alert, normal mood/affect, oriented x 3 Skin: normal color, warm/dry Progress/Results/Core Measures Suspected Sepsis SIRS Temperature: Pulse: Respiratory Rate: Laboratory Tests 06/04/19 15:35: White Blood Count 1.4*L Blood Pressure / Mean: Laboratory Tests 06/04/19 15:35: Creatinine 0.57L, Platelet Count 169, Total Bilirubin 0.5 Results/Orders Lab Results Laboratory Tests Test 06/04/19 15:35 Range/Units White Blood Count 1.4 *L 4.3-11.0 10^3/uL Red Blood Count 3.11 L 4.35-5.85 10^6/uL Hemoglobin 9.6 L 11.5-16.0 G/DL Hematocrit 29 L 35-52 % Mean Corpuscular Volume 93 80-99 FL Mean Corpuscular Hemoglobin 31 25-34 PG Mean Corpuscular Hemoglobin Concent 33 32-36 G/DL Red Cell Distribution Width 16.1 H 10.0-14.5 % Platelet Count 169 130-400 10^3/uL Mean Platelet Volume 8.3 7.4-10.4 FL Neutrophils (%) (Auto) 7 L 42-75 % Lymphocytes (%) (Auto) 51 H 12-44 % Monocytes (%) (Auto) 29 H 0-12 % Eosinophils (%) (Auto) 13 H 0-10 % Basophils (%) (Auto) 1 0-10 % Neutrophils # (Auto) 0.1 L 1.8-7.8 X 10^3 Lymphocytes # (Auto) 0.7 L 1.0-4.0 X 10^3 Monocytes # (Auto) 0.7 0.0-1.0 X 10^3 Eosinophils # (Auto) 0.2 0.0-0.3 10^3/uL Basophils # (Auto) 0.0 0.0-0.1 10^3/uL Neutrophils % (Manual) 2 % Lymphocytes % (Manual) 68 % Monocytes % (Manual) 14 % Eosinophils % (Manual) 14 % Basophils % (Manual) 0 % Band Neutrophils 2 % Anisocytosis SLIGHT D-Dimer 1.43 H 0.00-0.49 UG/ML Sodium Level 141 135-145 MMOL/L Potassium Level 3.4 L 3.6-5.0 MMOL/L Chloride Level 100 98-107 MMOL/L Carbon Dioxide Level 27 21-32 MMOL/L Anion Gap 14 5-14 MMOL/L Blood Urea Nitrogen 14 7-18 MG/DL Creatinine 0.57 L 0.60-1.30 MG/DL Estimat Glomerular Filtration Rate > 60 BUN/Creatinine Ratio 25 Glucose Level 103 70-105 MG/DL Calcium Level 8.7 8.5-10.1 MG/DL Corrected Calcium 9.3 8.5-10.1 MG/DL Magnesium Level 1.6 1.6-2.4 MG/DL Total Bilirubin 0.5 0.1-1.0 MG/DL Aspartate Amino Transf (AST/SGOT) 17 5-34 U/L Alanine Aminotransferase (ALT/SGPT) 7 0-55 U/L Alkaline Phosphatase 58 40-136 U/L Troponin I < 0.30 <0.30 NG/ML Pro-B-Type Natriuretic Peptide 409.0 H <75.0 PG/ML Total Protein 6.5 6.4-8.2 GM/DL Albumin 3.2 3.2-4.5 GM/DL Micro Results Microbiology 06/04/19 Influenza Types A,B Antigen (BRITTANY) - Final, Complete My Orders Orders - BINDU JACOBSON DO Ekg Tracing (06/04/19 15:34) Ed Iv/Invasive Line Start (06/04/19 15:34) Cbc With Automated Diff (06/04/19 15:34) Comprehensive Metabolic Panel (06/04/19 15:34) Fibrin Degradation Products (06/04/19 15:34) Lactic Acid Analyzer (06/04/19 15:41) Influenza A And B Antigens (06/04/19 15:41) Chest 1 View Ap/Pa Only (06/04/19 15:41) Troponin I Fs (06/04/19 15:41) Probnp Fs (06/04/19 15:41) Magnesium (06/04/19 15:41) Manual Differential (06/04/19 15:35) Ct Angio Chest W (06/04/19 16:41) Iohexol Injection (Omnipaque 350 Mg/Ml 1 (06/04/19 17:00) Received Contrast (Hold Metformin- Contr (06/04/19 17:00) Sodium Chloride Flush (Catheter Flush Sy (06/04/19 17:00) Ns (Ivpb) (Sodium Chloride 0.9% Ivpb Bag (06/04/19 17:00) Albuterol Pre-Mix Nebs (Rt) (Proventil (06/04/19 17:45) Svn Small Volume Nebulizer (06/04/19 17:44) Medications Given in ED Current Medications Medications Dose Ordered Sig/Jorge A Route Start Time Stop Time Status Last Admin Dose Admin Albuterol Sulfate 2.5 mg ONCE ONCE INH 06/04/19 17:45 06/04/19 17:46 DC 06/04/19 17:55 2.5 MG Iohexol 125 ml ONCE ONCE IV 06/04/19 17:00 06/04/19 17:01 DC 06/04/19 17:07 125 ML Sodium Chloride 10 ml NEEDED PRN IV 06/04/19 17:00 06/04/19 17:07 10 ML Sodium Chloride 100 ml ONCE ONCE IV 06/04/19 17:00 06/04/19 17:01 DC 06/04/19 17:07 80 ML Vital Signs/I&O 06/04/19 15:25 Temp 37.1 Pulse 89 Resp 23 B/P (MAP) 157/68 (97) Pulse Ox 94 O2 Delivery Room Air Capillary Refill : Progress Note : Time: 18:11 Progress Note some alleviation of SOA p albuterol neb 1820- called [facility], spoke to on-call Oncology (covering for Dr De La Torre), Dr Glasgow. Informed of pt HPI, labs and RAD studies done in ER today w no obvious cause for pt sx of SOA at rest. Agreed w routine f/u as scheduled on 06/06 @ [facility]. do not believe that "small pleural effusion" is cause of sx. Further eval per [facility] on 06/06 if symptoms persist or progress. ECG Initial ECG Impression Date: Jun 04, 2019 Initial ECG Impression Time: 15:25 Initial ECG Rate: 90 Initial ECG Rhythm: Normal Sinus Initial ECG Intervals: Normal Initial ECG Impression: Normal Departure Impression Primary Impression: Dyspnea Qualified Codes: R06.00 - Dyspnea, unspecified Additional Impressions: Neutropenia Qualified Codes: D70.1 - Agranulocytosis secondary to cancer chemotherapy; T45.1X5A - Adverse effect of antineoplastic and immunosuppressive drugs, initial encounter History of chemotherapy Disposition: HOME, SELF-CARE Condition: Improved Departure-Patient Inst. Referrals: RUSSELL OSORIO DO (PCP) Primary Care Physician OBINNA OSORIO DNP (Family) Primary Care Physician Scripts Albuterol Sulfate (PROAIR HFA) 1 Puff Puff 2 PUFF IH Q4H PRN for cough, #1 PUFF 1 PUFF = 90 MCG Prov: BINDU JACOBSON DO 06/04/19 BINDU JACOBSON DO Jun 04, 2019 15:48
[2019-06-04 15:50] LABS: BASOPHILS % (AUTO) 1 % (0-10); EOSINOPHILS # (AUTO) 0.2 10^3/uL (0.0-0.3); EOSINOPHILS % (AUTO) 13 % (0-10); HEMATOCRIT 29 % (35-52); HEMOGLOBIN 9.6 G/DL (11.5-16.0); LYMPHOCYTES # (AUTO) 0.7 X 10^3 (1.0-4.0); LYMPHOCYTES % (AUTO) 51 % (12-44); MEAN CORPUSCULAR HEMOGLOBIN 31 PG (25-34); MEAN CORPUSCULAR HGB CONC 33 G/DL (32-36); MEAN CORPUSCULAR VOLUME 93 FL (80-99); MEAN PLATELET VOLUME 8.3 FL (7.4-10.4); MONOCYTES # (AUTO) 0.7 X 10^3 (0.0-1.0); MONOCYTES % (AUTO) 29 % (0-12); NEUTROPHILS # (AUTO) 0.1 X 10^3 (1.8-7.8); NEUTROPHILS % (AUTO) 7 % (42-75); PLATELET COUNT 169 10^3/uL (130-400); RED CELL DISTRIBUTION WIDTH 16.1 % (10.0-14.5); WHITE BLOOD COUNT 1.4 10^3/uL (4.3-11.0)
[2019-06-04 16:06] LABS: ANISOCYTOSIS SLIGHT; BAND NEUTROPHILS 2 %; BASOPHILS % (MANUAL) 0 %; EOSINOPHILS % (MANUAL) 14 %; LYMPHOCYTES % (MANUAL) 68 %; MONOCYTES % (MANUAL) 14 %; NEUTROPHILS % (MANUAL) 2 %
--- NOTE | 2019-06-04 16:09 | Diagnostic Imaging Report ---
HISTORY: Shortness of breath, history of cervical cancer. TECHNIQUE: Single frontal view of the chest. COMPARISON: 03/01/2019. FINDINGS: There is moderate cardiomegaly with mild central vascular congestion. There is a small left pleural effusion and a minimal right pleural effusion. No pneumothorax is seen. IMPRESSION: 1. Moderate cardiomegaly with central vascular congestion. 2. Small right and minimal left pleural effusions. Dictated by: Dictated on workstation # [id number]
[2019-06-04 16:26] LABS: BUN/CREATININE RATIO 25; CARBON DIOXIDE 27 MMOL/L (21-32); CHLORIDE 100 MMOL/L (98-107); CREATININE SERUM 0.57 MG/DL (0.60-1.30); GFR ESTIMATED > 60; GLUCOSE 103 MG/DL (70-105); POTASSIUM 3.4 MMOL/L (3.6-5.0); SODIUM 141 MMOL/L (135-145)
[2019-06-04 16:27] LABS: ALANINE AMINOTRANSFERASE 7 U/L (0-55); ALBUMIN 3.2 GM/DL (3.2-4.5); ALKALINE PHOSPHATASE 58 U/L (40-136); BILIRUBIN,TOTAL 0.5 MG/DL (0.1-1.0); CALCIUM 8.7 MG/DL (8.5-10.1); TOTAL PROTEIN 6.5 GM/DL (6.4-8.2)
[2019-06-04 16:28] LABS: MAGNESIUM 1.6 MG/DL (1.6-2.4)
[2019-06-04] MEDS ORDERED: IOHEXOL 350 MG/ML 150 ML (OMNIPAQUE 350) VIAL IV ONE (17:00)
[2019-06-04] MEDS ORDERED: HOLD METFORMIN - RECEIVED CONTRAST 20 ML VIAL IV SCH (17:00)
[2019-06-04] MEDS ORDERED: NS 100 ML (IVPB) BAG IV ONE (17:00)
[2019-06-04] MEDS ORDERED: CATHETER FLUSH 10 ML SYR IV PRN (17:00)
--- NOTE | 2019-06-04 17:26 | Diagnostic Imaging Report ---
EXAMINATION: CT angiogram of the chest, 06/04/2019. TECHNIQUE: Multiple contiguous axial images were obtained through the chest after uneventful bolus administration of intravenous contrast. 3D reconstructed CTA MIP acquisitions were also performed. Auto Exposure Controls were utilized during the CT exam to meet ALARA standards for radiation dose reduction. INDICATION: Shortness of breath, elevated D-dimer. COMPARISONS: None. FINDINGS: There are no central or proximal segmental pulmonary emboli. The thoracic aorta is unremarkable. Peripheral small vessels within the lower lobes and upper lobes are not well evaluated due to poor opacification. There is a small left pleural effusion. No significant effusion with no pericardial effusion seen. The lungs demonstrate diffuse chronic change. The visualized upper abdomen demonstrates postoperative findings, hepatic steatosis, multiple nonspecific and incompletely imaged low-density lesions in the left kidney, the distribution of which suggests possible pyelonephritis; correlate with symptoms. A tiny punctate nonobstructive stone in left kidney is noted. Incompletely imaged hyperdensity in the left renal pelvis is seen. A small stone is not excluded. The renal pelvis is somewhat prominent, and although it could be due to an extrarenal pelvis, a component of hydronephrosis is not excluded; correlate with patient's symptoms. Right lateral abdominal hernia demonstrates loops of bowel extending into the soft tissues in the right lateral aspect of the upper abdomen, incompletely imaged. There is diffuse degenerative change in the osseous structures. IMPRESSION: 1. No pulmonary emboli in the proximal or central pulmonary arteries. 2. Left pleural effusion. 3. Abnormal findings in the left kidney; see above discussion and correlate with symptoms given these findings are incompletely imaged. Correlate for possible distal obstructive process. 4. Other findings as above. Dictated by: Dictated on workstation # [id number]
[2019-06-04] MEDS ORDERED: RT-ALBUTEROL SULF 2.5 MG/3 ML PRE-MIX VIAL INH ONE (17:45)
[2019-06-04] MEDS ORDERED: RT-ALBUINH IH (18:29)
[2019-06-04 18:44] VITALS: BP 118/68
== END 2019-06-04 18:44 | disposition home or self-care (01) ==
LOC: EDUNIT# 15:19 → ER FS 15:20
DX: R06.00 Dyspnea, unspecified (principal); D70.9 Neutropenia, unspecified; I10 Essential (primary) hypertension; Z87.820 Personal history of traumatic brain injury; Z85.41 Personal history of malignant neoplasm of cervix uteri; Z92.21 Personal history of antineoplastic chemotherapy; Z88.0 Allergy status to penicillin; Z88.1 Allergy status to other antibiotic agents; Z88.2 Allergy status to sulfonamides; Z90.49 Acquired absence of other specified parts of digestive tract; Z90.89 Acquired absence of other organs
CPT/HCPCS: 36415; 71045; 71275; 80053; 83735; 83880; 84484; 85007; 85027; 85379; 87804; 93005

== ENCOUNTER 2019-06-11 12:10 | Outpatient (CLI) | payer MEDICARE, OTHER ==
[2019-06-11] MEDS ORDERED: LACTATED RINGERS 1,000 ML IV SCH (12:30)
[2019-06-11 12:33] VITALS: BP 105/65
[2019-06-11 12:37] LABS: HEMOGLOBIN 10.6 G/DL (11.5-16.0); RED CELL DISTRIBUTION WIDTH 15.5 % (10.0-14.5); WHITE BLOOD COUNT 3.3 10^3/uL (4.3-11.0)
[2019-06-11] MEDS: MAGNESIUM 1 GM/D5W 100 ML IVPB IV SCH ×2 (12:49→13:48)
[2019-06-11 12:54] LABS: ALANINE AMINOTRANSFERASE 9 U/L (0-55); ALKALINE PHOSPHATASE 68 U/L (40-136); BILIRUBIN,TOTAL 0.8 MG/DL (0.1-1.0); BUN/CREATININE RATIO 12; CALCIUM 8.8 MG/DL (8.5-10.1); CARBON DIOXIDE 29 MMOL/L (21-32); CHLORIDE 102 MMOL/L (98-107); CREATININE SERUM 0.68 MG/DL (0.60-1.30); GFR ESTIMATED > 60; GLUCOSE 94 MG/DL (70-105); MAGNESIUM 1.4 MG/DL (1.6-2.4); POTASSIUM 3.4 MMOL/L (3.6-5.0); SODIUM 139 MMOL/L (135-145); TOTAL PROTEIN 6.6 GM/DL (6.4-8.2)
== END 2019-06-11 14:55 | disposition home or self-care (01) ==
LOC: SDC 12:10
PROVIDERS: ATTEND Nurse Practitioner Family
DX: E83.42 Hypomagnesemia (principal); E86.0 Dehydration
CPT/HCPCS: 36415; 80053; 83735; 85027; 96365; 96366

== ENCOUNTER → 2019-06-11 | Outpatient (CLI) | payer MEDICARE, OTHER ==
[~2019-06-11] MED LIST changes: +RT-ALBUINH IH
--- NOTE | 2019-06-11 15:37 | Diagnostic Imaging Report ---
INDICATION: Shortness of breath. TIME OF EXAM: 03:32 p.m. Correlation is made with prior chest from 06/04/2019. FINDINGS: Heart size is stable. Left basilar effusion persists. The lungs are clear. The pulmonary vascularity is normal. There is no pneumothorax. IMPRESSION: No significant change in left basilar effusion since examination from 06/04/2019. Dictated by: Dictated on workstation # [id number]
== END ==
LOC: RAD 14:25
PROVIDERS: ATTEND Nurse Practitioner Family
DX: J70.1 Chronic and other pulmonary manifestations due to radiation (principal); J90 Pleural effusion, not elsewhere classified
CPT/HCPCS: 71046

== ENCOUNTER 2019-06-15 11:13 | Emergency (ER) | payer MEDICARE, OTHER ==
[~2019-06-15] VITALS: Ht 167.7 cm; Wt 80.0 kg
--- NOTE | 2019-06-15 11:24 | ED Cough/URI ---
General Stated Complaint: VOMITING; DIARRHEA; HYPERGLYCEMIA; SOB Source: patient, family History of Present Illness Date Seen by Provider: Jun 15, 2019 Time Seen by Provider: 11:19 Initial Comments 69-year-old female presents here she "feels terrible" patient reports that yesterday she had some nausea and vomiting. That today she has a little bit shortness of breath with a mild cough. Patient also reports that her blood sugars high because she forgot to take her long-acting insulin last night. Patient has subjective fever yesterday some generalized malaise and body aches today. She does not have any chest pain. No urinary symptoms. Allergies and Home Medications Allergies Coded Allergies: Penicillins (Verified Allergy, Severe, SOA, 02/28/19) ciprofloxacin (Verified Allergy, Severe, BURNING SENSATION, 02/28/19) Sulfa (Sulfonamide Antibiotics) (Verified Allergy, Unknown, 02/28/19) bacitracin (Verified Allergy, Unknown, 02/28/19) Home Medications Albuterol Sulfate 1 Puff Puff, 2 PUFF IH Q4H PRN for cough 1 PUFF = 90 MCG Prescribed by: BINDU JACOBSON on 06/04/19 1829 Cephalexin 500 Mg Capsule, 500 MG PO BID Prescribed by: KWASI PEREZ on 02/28/19 1650 Ondansetron 4 Mg Tab.rapdis, 4 MG PO Q4M PRN for NAUSEA/VOMITING Prescribed by: ANGE MENDEZ on 06/15/19 1249 Patient Home Medication List Home Medication List Reviewed: Yes Review of Systems Review of Systems Constitutional: chills, malaise, weakness EENTM: no symptoms reported Respiratory: cough Cardiovascular: No chest pain, No palpitations Gastrointestinal: No abdominal pain; diarrhea, nausea, vomiting Genitourinary: no symptoms reported Musculoskeletal: see HPI Skin: no symptoms reported Psychiatric/Neurological: No Symptoms Reported Past Pmieked-Kryotr-Bcxxon Hx Past Med/Social Hx: Reviewed Nursing Past Med/Soc Hx Patient Social History 2nd Hand Smoke Exposure: No Recent Foreign Travel: No Recent Hopitalizations: No Seasonal Allergies Seasonal Allergies: No Past Medical History Surgeries: Yes (Brachytherapy) Appendectomy, Gallbladder, Tonsillectomy Respiratory: No Cardiac: Yes Hypertension Neurological: Yes Traumatic Brain Injury Genitourinary: No Gastrointestinal: No Musculoskeletal: No Endocrine: Yes (PRE DIABETIC) HEENT: No Cancer: Yes Cervical Did You Recieve Any Treatments: Yes What Type of Treatment Did You: Radiation Psychosocial: No Integumentary: No Blood Disorders: No Physical Exam Vital Signs - First Documented 06/15/19 11:30 Temp 37.3 Pulse 93 Resp 19 B/P (MAP) 154/71 (98) Pulse Ox 97 O2 Delivery Room Air Capillary Refill : Height: '" Weight: lbs. oz. kg; 30.00 BMI Method: General Appearance: no apparent distress Eyes: Bilateral Eye Normal Inspection HEENT: normal ENT inspection, pharynx normal Neck: full range of motion, supple Respiratory: lungs clear, normal breath sounds, no respiratory distress Cardiovascular: normal peripheral pulses, regular rate, rhythm Gastrointestinal: non tender, soft Extremities: normal range of motion Neurologic/Psychiatric: concrete block layer II-XII nml as tested, no motor/sensory deficits, alert, normal mood/affect, oriented x 3 Skin: normal color, warm/dry Progress/Results/Core Measures Suspected Sepsis SIRS Temperature: Pulse: Respiratory Rate: Laboratory Tests 06/15/19 11:30: White Blood Count 4.0L Blood Pressure / Mean: Laboratory Tests 06/15/19 11:30: Platelet Count 214 06/15/19 12:00: Creatinine 0.59L, Total Bilirubin 0.7 Results/Orders Lab Results Laboratory Tests Test 06/15/19 11:30 06/15/19 12:00 Range/Units White Blood Count 4.0 L 4.3-11.0 10^3/uL Red Blood Count 3.50 L 4.35-5.85 10^6/uL Hemoglobin 10.9 L 11.5-16.0 G/DL Hematocrit 33 L 35-52 % Mean Corpuscular Volume 95 80-99 FL Mean Corpuscular Hemoglobin 31 25-34 PG Mean Corpuscular Hemoglobin Concent 33 32-36 G/DL Red Cell Distribution Width 15.7 H 10.0-14.5 % Platelet Count 214 130-400 10^3/uL Mean Platelet Volume 9.9 7.4-10.4 FL Neutrophils (%) (Auto) 80 H 42-75 % Lymphocytes (%) (Auto) 13 12-44 % Monocytes (%) (Auto) 4 0-12 % Eosinophils (%) (Auto) 2 0-10 % Basophils (%) (Auto) 0 0-10 % Neutrophils # (Auto) 3.2 1.8-7.8 X 10^3 Lymphocytes # (Auto) 0.5 L 1.0-4.0 X 10^3 Monocytes # (Auto) 0.2 0.0-1.0 X 10^3 Eosinophils # (Auto) 0.1 0.0-0.3 10^3/uL Basophils # (Auto) 0.0 0.0-0.1 10^3/uL Sodium Level 139 135-145 MMOL/L Potassium Level 3.8 3.6-5.0 MMOL/L Chloride Level 100 98-107 MMOL/L Carbon Dioxide Level 25 21-32 MMOL/L Anion Gap 14 5-14 MMOL/L Blood Urea Nitrogen 12 7-18 MG/DL Creatinine 0.59 L 0.60-1.30 MG/DL Estimat Glomerular Filtration Rate > 60 BUN/Creatinine Ratio 20 Glucose Level 177 H 70-105 MG/DL Calcium Level 8.7 8.5-10.1 MG/DL Corrected Calcium 9.4 8.5-10.1 MG/DL Magnesium Level 1.5 L 1.6-2.4 MG/DL Total Bilirubin 0.7 0.1-1.0 MG/DL Aspartate Amino Transf (AST/SGOT) 19 5-34 U/L Alanine Aminotransferase (ALT/SGPT) 7 0-55 U/L Alkaline Phosphatase 70 40-136 U/L Troponin I < 0.30 <0.30 NG/ML Total Protein 6.9 6.4-8.2 GM/DL Albumin 3.1 L 3.2-4.5 GM/DL Lipase 5 L 8-78 U/L Micro Results Microbiology 06/15/19 Influenza Types A,B Antigen (BRITTANY) - Final, Complete My Orders Orders - ANGE MENDEZ DO Accucheck Stat ONCE (06/15/19 11:26) Ed Iv/Invasive Line Start (06/15/19 11:26) Ekg Tracing (06/15/19 11:26) Cbc With Automated Diff (06/15/19 11:27) Comprehensive Metabolic Panel (06/15/19 11:27) Lipase (06/15/19 11:27) Influenza A And B Antigens (06/15/19 11:27) Acute Abd Series (06/15/19 11:27) Ed Iv/Invasive Line Start (06/15/19 11:27) Ns Iv 1000 Ml (Sodium Chloride 0.9%) (06/15/19 11:27) Ondansetron Injection (Zofran Injectio (06/15/19 11:30) Troponin I Fs (06/15/19 11:27) Magnesium (06/15/19 11:46) Albuterol/Ipra Inhalation Soln (Duoneb I (06/15/19 12:00) Svn Small Volume Nebulizer (06/15/19 11:46) Medications Given in ED Current Medications Medications Dose Ordered Sig/Jorge A Route Start Time Stop Time Status Last Admin Dose Admin Albuterol/ Ipratropium 3 ml ONCE ONCE INH 06/15/19 12:00 06/15/19 12:01 DC 06/15/19 12:02 3 ML Ondansetron HCl 4 mg ONCE ONCE IVP 06/15/19 11:30 06/15/19 11:31 DC 06/15/19 12:02 4 MG Vital Signs/I&O 06/15/19 06/15/19 11:30 12:56 Temp 37.3 37.2 Pulse 93 91 Resp 19 20 B/P (MAP) 154/71 (98) 135/66 Pulse Ox 97 99 O2 Delivery Room Air Room Air Capillary Refill : ECG Initial ECG Impression Date: Jun 15, 2019 Initial ECG Impression Time: 11:37 Initial ECG Rhythm: Normal Sinus Initial ECG Intervals: Normal Initial ECG Impression: Nonspecific Changes Comment no acute findings Diagnostic Imaging Diagonstic Imaging: Xray Plain Films/CT/US/NM/MRI: chest, abdomen Reviewed: Reviewed by Me, Reviewed/Discussed Departure Impression Primary Impression: Influenza-like illness Disposition: 01 HOME, SELF-CARE Condition: Stable Departure-Patient Inst. Referrals: RUSSELL OSORIO DO (PCP) Primary Care Physician OBINNA OSORIO DNP (Family) Primary Care Physician Patient Instructions: Flu, Viral Syndrome (DC) Add. Discharge Instructions: Emergency department focuses on treating and ruling out life-threatening diseases. Whenever possible, a diagnosis is given. However, most patients are given an impression based on their history, physical exam, and workup during your brief time in the ER. Information about probable diagnosis and other educational material has been provided. Please take the time to read and understand this information. It is very important that you follow up with a physician as discussed during the visit today. Failure to adhere to your follow-up instructions may lead to severe disability, injury, or so please make sure to keep your appointments or obtain one as requested. Please keep in mind the emergency department is not designed to your primary care or "family doctor" and nonurgent issues are best evaluated by an outpatient physician Scripts Ondansetron (Ondansetron Odt) 4 Mg Tab.rapdis 4 MG PO Q4M PRN for NAUSEA/VOMITING, #20 TAB Prov: ANGE MENDEZ DO 06/15/19 ANGE MENDEZ DO Jun 15, 2019 11:24
[2019-06-15] MEDS ORDERED: NS IV 1000 ML 1,000 ML IV SCH (11:27)
[2019-06-15] MEDS ORDERED: ONDANSETRON 4 MG/2 ML (SDV) Z0FRAN IVP ONE (11:30)
[2019-06-15 11:47] LABS: BASOPHILS % (AUTO) 0 % (0-10); EOSINOPHILS % (AUTO) 2 % (0-10); HEMATOCRIT 33 % (35-52); HEMOGLOBIN 10.9 G/DL (11.5-16.0); LYMPHOCYTES % (AUTO) 13 % (12-44); MEAN CORPUSCULAR HEMOGLOBIN 31 PG (25-34); MEAN CORPUSCULAR HGB CONC 33 G/DL (32-36); MEAN CORPUSCULAR VOLUME 95 FL (80-99); MEAN PLATELET VOLUME 9.9 FL (7.4-10.4); MONOCYTES % (AUTO) 4 % (0-12); NEUTROPHILS # (AUTO) 3.2 X 10^3 (1.8-7.8); NEUTROPHILS % (AUTO) 80 % (42-75); PLATELET COUNT 214 10^3/uL (130-400); RED CELL DISTRIBUTION WIDTH 15.7 % (10.0-14.5)
[2019-06-15 11:48] LABS: EOSINOPHILS # (AUTO) 0.1 10^3/uL (0.0-0.3); LYMPHOCYTES # (AUTO) 0.5 X 10^3 (1.0-4.0); MONOCYTES # (AUTO) 0.2 X 10^3 (0.0-1.0)
[2019-06-15] MEDS ORDERED: RT-ALBUTEROL/IPRATROPIUM 3 ML (DUONEB) VIAL INH ONE (12:00)
[2019-06-15 12:39] LABS: ALANINE AMINOTRANSFERASE 7 U/L (0-55); ALKALINE PHOSPHATASE 70 U/L (40-136); BILIRUBIN,TOTAL 0.7 MG/DL (0.1-1.0); BUN/CREATININE RATIO 20; CALCIUM 8.7 MG/DL (8.5-10.1); CARBON DIOXIDE 25 MMOL/L (21-32); CHLORIDE 100 MMOL/L (98-107); CREATININE SERUM 0.59 MG/DL (0.60-1.30); GFR ESTIMATED > 60; GLUCOSE 177 MG/DL (70-105); POTASSIUM 3.8 MMOL/L (3.6-5.0); SODIUM 139 MMOL/L (135-145)
[2019-06-15 12:40] LABS: ALBUMIN 3.1 GM/DL (3.2-4.5); LIPASE 5 U/L (8-78); TOTAL PROTEIN 6.9 GM/DL (6.4-8.2)
[2019-06-15] MEDS ORDERED: ONDA4TAB11 PO (12:49)
[2019-06-15 12:56] VITALS: BP 135/66
--- NOTE | 2019-06-15 14:24 | Diagnostic Imaging Report ---
EXAMINATION: Abdominal series with PA chest. INDICATION: Vomiting and weakness and diarrhea. COMPARISON: Comparison is made with a chest radiograph from June 11, 2019. Correlation is also made with CT February 28, 2019. FINDINGS: Blunting of the left costophrenic angle suggesting pleural fluid is unchanged from prior exam. Right lung appears clear. Heart size and mediastinal contours appear stable. Central pulmonary vascularity appears appropriate. There are multiple surgical sutures demonstrated within the right upper quadrant. There are no findings of free intraperitoneal air. There are nonspecific gas-filled loops of small and large bowel but no findings suggestive of abnormal bowel dilation to suggest an obstructive process. There appear to likely be persistent left renal calculi. There are advanced arthritic changes within the lower lumbar spine and hips. IMPRESSION: 1. Persistent blunting of the left costophrenic angle suggesting left pleural effusion. Lungs otherwise appear clear. 2. Extensive prior surgical sutures associated with the patient's right anterior abdominal wall. 3. No evidence to suggest bowel obstruction. 3. Apparent persistent left renal calculi. Dictated by: Dictated on workstation # [id number]
== END 2019-06-15 12:59 | disposition home or self-care (01) ==
LOC: EDUNIT# 11:13 → ER FS 11:14
DX: J11.1 Influenza due to unidentified influenza virus with other respiratory manifestations (principal); Z88.0 Allergy status to penicillin; Z88.1 Allergy status to other antibiotic agents; Z88.2 Allergy status to sulfonamides; Z88.8 Allergy status to other drugs, medicaments and biological substances; Z85.41 Personal history of malignant neoplasm of cervix uteri; Z87.820 Personal history of traumatic brain injury
CPT/HCPCS: 36415; 74022; 80053; 83690; 83735; 84484; 85025; 87804; 93005

== ENCOUNTER 2019-06-25 11:44 | Outpatient (CLI) | payer MEDICARE, OTHER ==
[~2019-06-25] VITALS: Ht 165.1 cm; Wt 75.0 kg
[~2019-06-25 11:44] MED LIST changes: +ONDA4TAB11 PO
[2019-06-25 11:50] VITALS: BP 143/74
--- NOTE | 2019-06-25 11:50 | NUR ---
REPORTS RECENT ONSET OF UPPER RESPIRATORY SYMPTOMS OF SHORTNESS OF BREATH, CONGESTION AND NASAL DRAINAGE ALONG WITH COUGH. STATES INFLUENZA SWAB TEST BY DR Agustina OSORIO WAS NEGATIVE. STATES SHE STARTED HAVING SEVERE DIARRHEA AND VOMITING IN PAST 2 DAYS WITH LOW BLOOD SUGAR. IS SHORT OF BREATH WITH EXERTION ON ADMIT AND REPORTS FEELING WEAK.
[2019-06-25] MEDS ORDERED: LACTATED RINGERS 1,000 ML IV ONE (12:13)
[2019-06-25] MEDS ORDERED: cefTRIAXone 1,000 MG/SWFI 10 ML IV PUSH IV ONE ×2 (12:45)
[2019-06-25] MEDS ORDERED: CARV12.52 PO (12:45)
[2019-06-25] MEDS ORDERED: ONDANSETRON 4 MG/2 ML (SDV) Z0FRAN IV ONE (12:45)
[2019-06-25] MEDS ORDERED: LACTATED RINGERS 2,000 ML IV SCH (12:45)
[2019-06-25] MEDS ORDERED: INSU100I10 SQ (12:45)
[2019-06-25] MEDS ORDERED: INSU100I14 SQ (12:45)
[2019-06-25 12:46] LABS: BASOPHILS % (AUTO) 0 % (0-10); EOSINOPHILS # (AUTO) 0.2 10^3/uL (0.0-0.3); EOSINOPHILS % (AUTO) 4 % (0-10); HEMATOCRIT 34 % (35-52); HEMOGLOBIN 11.1 G/DL (11.5-16.0); LYMPHOCYTES # (AUTO) 0.7 X 10^3 (1.0-4.0); LYMPHOCYTES % (AUTO) 17 % (12-44); MEAN CORPUSCULAR HEMOGLOBIN 31 PG (25-34); MEAN CORPUSCULAR HGB CONC 33 G/DL (32-36); MEAN CORPUSCULAR VOLUME 96 FL (80-99); MEAN PLATELET VOLUME 8.6 FL (7.4-10.4); MONOCYTES # (AUTO) 0.3 X 10^3 (0.0-1.0); MONOCYTES % (AUTO) 6 % (0-12); NEUTROPHILS % (AUTO) 73 % (42-75); PLATELET COUNT 184 10^3/uL (130-400); RED CELL DISTRIBUTION WIDTH 15.2 % (10.0-14.5); WHITE BLOOD COUNT 4.1 10^3/uL (4.3-11.0)
[2019-06-25] MEDS ORDERED: POTASSIUM PO (12:48)
[2019-06-25] MEDS ORDERED: MAGN400T39 PO (12:48)
[2019-06-25 13:00] LABS: ALANINE AMINOTRANSFERASE 10 U/L (0-55); ALKALINE PHOSPHATASE 72 U/L (40-136); BILIRUBIN,TOTAL 0.6 MG/DL (0.1-1.0); BUN/CREATININE RATIO 20; CALCIUM 8.5 MG/DL (8.5-10.1); CARBON DIOXIDE 28 MMOL/L (21-32); CHLORIDE 101 MMOL/L (98-107); GFR ESTIMATED > 60; GLUCOSE 202 MG/DL (70-105); MAGNESIUM 1.4 MG/DL (1.6-2.4); SODIUM 138 MMOL/L (135-145)
[2019-06-25 13:01] LABS: ALBUMIN 2.9 GM/DL (3.2-4.5)
[2019-06-25 13:10] LABS: CLARITY,URINE SL CLOUDY; COLOR,URINE YELLOW; GLUCOSE, URINE (UA) NEGATIVE (NEGATIVE); KETONES,URINE 1+ (NEGATIVE); LEUKOCYTE ESTERASE ,URINE 2+ (NEGATIVE); NITRITE,URINE NEGATIVE (NEGATIVE); PH,URINE 5.5 (5-9); PROTEIN,URINE 2+ (NEGATIVE)
[2019-06-25 13:28] LABS: BILIRUBIN,URINE 1+ (NEGATIVE)
[2019-06-25 13:29] LABS: BACTERIA,URINE FEW /HPF; WBC,URINE >100 /HPF
[2019-06-25 13:37] LABS: BAND NEUTROPHILS 3 %; EOSINOPHILS % (MANUAL) 3 %; LYMPHOCYTES % (MANUAL) 21 %; MONOCYTES % (MANUAL) 6 %; NEUTROPHILS % (MANUAL) 67 %
== END 2019-06-25 14:40 | disposition home or self-care (01) ==
LOC: SDC 11:44
PROVIDERS: ATTEND Nurse Practitioner Family
DX: R68.89 Other general symptoms and signs (principal); K52.9 Noninfective gastroenteritis and colitis, unspecified; E83.42 Hypomagnesemia; E87.6 Hypokalemia; E86.0 Dehydration; N39.0 Urinary tract infection, site not specified
CPT/HCPCS: 36415; 80053; 81000; 83735; 85007; 85027; 87088; 96361; 96374

== ENCOUNTER → 2019-06-28 | Outpatient (CLI) | payer MEDICARE, OTHER ==
[~2019-06-28] MED LIST changes: +CARV12.52 PO; +CATHETER FLUSH 10 ML SYR IV PRN; +INSU100I10 SQ; +INSU100I14 SQ; +LACTATED RINGERS 1,000 ML IV ONE; +MAGN400T39 PO; +POTASSIUM PO
[2019-06-28 14:40] VITALS: BP 141/77
[2019-06-28] MEDS: [UNRECOGNIZED DRUG - OTHER] IV SCH ×2 (14:53→15:44)
[2019-06-28] MEDS: MAGNESIUM 1 GM/100 ML IV SCH ×2 (14:53→15:44)
--- NOTE | 2019-06-28 17:00 | NUR ---
REMOVED PATIENT'S IV ACCESS AFTER INFUSION/FLUIDS. TOLERATED WELL. DISCHARGED VIA WHEELCHAIR, ACCOMPANIED BY STAFF AND .
== END ==
LOC: SDC 14:13
PROVIDERS: ATTEND Nurse Practitioner Family
DX: E86.0 Dehydration (principal); E83.42 Hypomagnesemia
CPT/HCPCS: 96365; 96366

== ENCOUNTER → 2019-07-12 | Outpatient (CLI) | payer MEDICARE, OTHER ==
[~2019-07-12] VITALS: Ht 165 cm; Wt 74.5 kg
[~2019-07-12] MED LIST changes: -CATHETER FLUSH 10 ML SYR IV PRN; -LACTATED RINGERS 1,000 ML IV ONE; +LORA10CA PO
== END | disposition home or self-care (01) ==
LOC: PREOP 07-11 05:46
PROVIDERS: ATTEND Surgery
DX: Z01.818 Encounter for other preprocedural examination (principal)

== ENCOUNTER 2019-07-17 10:27 | Outpatient (RCR) | payer MEDICARE, OTHER ==
[2019-05-22 14:51] LABS: BASOPHILS % (AUTO) 0 % (0-10); EOSINOPHILS # (AUTO) 0.3 10^3/uL (0.0-0.3); EOSINOPHILS % (AUTO) 6 % (0-10); HEMATOCRIT 31 % (35-52); HEMOGLOBIN 10.3 G/DL (11.5-16.0); LYMPHOCYTES # (AUTO) 0.5 X 10^3 (1.0-4.0); LYMPHOCYTES % (AUTO) 11 % (12-44); MEAN CORPUSCULAR HEMOGLOBIN 31 PG (25-34); MEAN CORPUSCULAR HGB CONC 33 G/DL (32-36); MEAN CORPUSCULAR VOLUME 92 FL (80-99); MEAN PLATELET VOLUME 9.1 FL (7.4-10.4); MONOCYTES # (AUTO) 0.5 X 10^3 (0.0-1.0); MONOCYTES % (AUTO) 10 % (0-12); NEUTROPHILS # (AUTO) 3.3 X 10^3 (1.8-7.8); NEUTROPHILS % (AUTO) 74 % (42-75); PLATELET COUNT 168 10^3/uL (130-400); RED CELL DISTRIBUTION WIDTH 17.4 % (10.0-14.5); WHITE BLOOD COUNT 4.5 10^3/uL (4.3-11.0)
[2019-05-22 15:21] LABS: ALANINE AMINOTRANSFERASE 10 U/L (0-55); ALBUMIN 3.3 GM/DL (3.2-4.5); ALKALINE PHOSPHATASE 53 U/L (40-136); BILIRUBIN,TOTAL 0.5 MG/DL (0.1-1.0); BUN/CREATININE RATIO 16; CALCIUM 9.2 MG/DL (8.5-10.1); CARBON DIOXIDE 28 MMOL/L (21-32); CHLORIDE 104 MMOL/L (98-107); CREATININE SERUM 0.62 MG/DL (0.60-1.30); GFR ESTIMATED > 60; GLUCOSE 112 MG/DL (70-105); MAGNESIUM 1.3 MG/DL (1.6-2.4); POTASSIUM 3.3 MMOL/L (3.6-5.0); SODIUM 143 MMOL/L (135-145); TOTAL PROTEIN 6.2 GM/DL (6.4-8.2)
[2019-06-28 10:46] LABS: BASOPHILS % (AUTO) 0 % (0-10); EOSINOPHILS # (AUTO) 0.2 10^3/uL (0.0-0.3); EOSINOPHILS % (AUTO) 5 % (0-10); HEMATOCRIT 33 % (35-52); HEMOGLOBIN 10.6 G/DL (11.5-16.0); LYMPHOCYTES # (AUTO) 0.5 X 10^3 (1.0-4.0); LYMPHOCYTES % (AUTO) 14 % (12-44); MEAN CORPUSCULAR HGB CONC 32 G/DL (32-36); MEAN CORPUSCULAR VOLUME 96 FL (80-99); MEAN PLATELET VOLUME 8.3 FL (7.4-10.4); MONOCYTES # (AUTO) 0.2 X 10^3 (0.0-1.0); MONOCYTES % (AUTO) 5 % (0-12); NEUTROPHILS # (AUTO) 2.8 X 10^3 (1.8-7.8); NEUTROPHILS % (AUTO) 76 % (42-75); PLATELET COUNT 188 10^3/uL (130-400); RED CELL DISTRIBUTION WIDTH 15.2 % (10.0-14.5); WHITE BLOOD COUNT 3.6 10^3/uL (4.3-11.0)
[2019-06-28 10:51] LABS: MEAN CORPUSCULAR HEMOGLOBIN 30 PG (25-34)
[2019-06-28 10:59] LABS: ALANINE AMINOTRANSFERASE 7 U/L (0-55); ALBUMIN 2.9 GM/DL (3.2-4.5); ALKALINE PHOSPHATASE 77 U/L (40-136); BILIRUBIN,TOTAL 0.5 MG/DL (0.1-1.0); BUN/CREATININE RATIO 13; CALCIUM 8.7 MG/DL (8.5-10.1); CARBON DIOXIDE 29 MMOL/L (21-32); CHLORIDE 105 MMOL/L (98-107); CREATININE SERUM 0.68 MG/DL (0.60-1.30); GFR ESTIMATED > 60; GLUCOSE 144 MG/DL (70-105); POTASSIUM 3.6 MMOL/L (3.6-5.0); SODIUM 141 MMOL/L (135-145); TOTAL PROTEIN 6.8 GM/DL (6.4-8.2)
[2019-06-28 11:41] LABS: MAGNESIUM 1.4 MG/DL (1.6-2.4)
[2019-07-23] MEDS ORDERED: RT-ALBUTEROL SULF 2.5 MG/3 ML PRE-MIX VIAL ONE (14:47)
== END 2019-08-20 | disposition home or self-care (01) ==
LOC: ONC 10:27
PROVIDERS: ATTEND Internal Medicine Hematology & Oncology
DX: C53.9 Malignant neoplasm of cervix uteri, unspecified (principal)
CPT/HCPCS: 80053; 82728; 83540; 83615; 83735; 85025; 96365; 96366; 99213

== ENCOUNTER → 2019-07-17 | Outpatient (CLI) | payer MEDICARE, OTHER ==
--- NOTE | 2019-07-17 13:21 | Diagnostic Imaging Report ---
INDICATION: Dyspnea. Cough. COMPARISON: 06/15/2019 FINDINGS: Single frontal radiograph view of the chest was obtained and shows normal cardiac silhouette and pulmonary vasculature. Lungs show hyperinflation with small left basilar effusion. This is stable compared to prior exam. No large effusion is seen on the right. There is no pneumothorax on either side. Osseous structures show no gross acute abnormalities. IMPRESSION: 1. Stable exam of the chest showing small left basilar effusion and probable underlying obstructive pulmonary disease. Dictated by: Dictated on workstation # [id number]
== END ==
LOC: RAD 12:32
PROVIDERS: ATTEND Nurse Practitioner Adult Health
DX: J90 Pleural effusion, not elsewhere classified (principal)
CPT/HCPCS: 71046

== ENCOUNTER → 2019-07-18 | Outpatient (CLI) | payer MEDICARE, OTHER | LOC: LAB FS 16:23 | PROVIDERS: ATTEND Internal Medicine | DX: R05 Cough (principal) | CPT/HCPCS: 87070; 87205 ==

== ENCOUNTER → 2019-07-21 | Outpatient (CLI) | payer MEDICARE, OTHER ==
[2019-07-21 18:08] LABS: HEMATOCRIT 34 % (35-52); HEMOGLOBIN 11.3 G/DL (11.5-16.0); MEAN CORPUSCULAR HEMOGLOBIN 31 PG (25-34); MEAN CORPUSCULAR HGB CONC 34 G/DL (32-36); MEAN CORPUSCULAR VOLUME 92 FL (80-99); MEAN PLATELET VOLUME 8.5 FL (7.4-10.4); PLATELET COUNT 219 10^3/uL (130-400); RED CELL DISTRIBUTION WIDTH 14.1 % (10.0-14.5); WHITE BLOOD COUNT 4.1 10^3/uL (4.3-11.0)
[2019-07-21 18:09] LABS: BASOPHILS # (AUTO) 0.1 10^3/uL (0.0-0.1); BASOPHILS % (AUTO) 0 % (0-10); EOSINOPHILS # (AUTO) 0.2 10^3/uL (0.0-0.3); EOSINOPHILS % (AUTO) 4 % (0-10); LYMPHOCYTES % (AUTO) 12 % (12-44); MONOCYTES # (AUTO) 0.3 X 10^3 (0.0-1.0); MONOCYTES % (AUTO) 8 % (0-12); NEUTROPHILS # (AUTO) 3.1 X 10^3 (1.8-7.8); NEUTROPHILS % (AUTO) 76 % (42-75)
[2019-07-21 18:10] LABS: LYMPHOCYTES # (AUTO) 0.5 X 10^3 (1.0-4.0)
[2019-07-21 18:20] LABS: ALANINE AMINOTRANSFERASE 5 U/L (0-55); ALKALINE PHOSPHATASE 83 U/L (40-136); BILIRUBIN,TOTAL 0.6 MG/DL (0.1-1.0); BUN/CREATININE RATIO 23; CALCIUM 9.2 MG/DL (8.5-10.1); CARBON DIOXIDE 28 MMOL/L (21-32); CHLORIDE 101 MMOL/L (98-107); CREATININE SERUM 0.62 MG/DL (0.60-1.30); GFR ESTIMATED > 60; GLUCOSE 175 MG/DL (70-105); POTASSIUM 3.6 MMOL/L (3.6-5.0); SODIUM 140 MMOL/L (135-145); TOTAL PROTEIN 7.2 GM/DL (6.4-8.2)
== END ==
LOC: LAB FS 17:39
PROVIDERS: ATTEND Nurse Practitioner Adult Health
DX: C53.8 Malignant neoplasm of overlapping sites of cervix uteri (principal)
CPT/HCPCS: 36415; 80053; 85025

== ENCOUNTER → 2019-07-23 | Outpatient (CLI) | payer MEDICARE, OTHER ==
[~2019-07-23] MED LIST changes: +BARIUM SUSPENSION 2.1% (VANILLA SILQ) 450 ML PO ONE; +HOLD METFORMIN - RECEIVED CONTRAST 20 ML VIAL IV SCH; +IOHEXOL 350 MG/ML 100 ML (OMNIPAQUE 350) VIAL IV ONE; +NS 100 ML (IVPB) BAG IV ONE; +RT-ALBUTEROL SULF 2.5 MG/3 ML PRE-MIX VIAL INH ONE
--- NOTE | 2019-07-23 14:19 | Diagnostic Imaging Report ---
INDICATION: Cough and congestion. Patient has history of cervical carcinoma. TECHNIQUE: Precontrast and postcontrast axial imaging of the abdomen and pelvis was performed. In addition, postcontrast axial imaging of the chest was performed utilizing the CT angiography protocol. Multiplanar, 3-D and MIP reformations were performed. All CT scans use one or more of the following dose optimizing techniques: automated exposure control, MA and/or KvP adjustment based on patient size and exam type or iterative reconstruction. COMPARISON: Correlation is made with prior CT chest study from 06/04/[address] abdomen and pelvis study from 02/28/2019. CT ANGIOGRAM CHEST: Evaluation of the pulmonary arterial system is without evidence of thromboembolism. No definite filling defects are seen within central, lobar or segmental branches. Thoracic aorta is normal caliber. There is no dissection. No pericardial fluid is seen. There is a small left pleural effusion. The lungs appear clear apart from minimal atelectasis or scarring in the left lower lobe. IMPRESSION: 1. No evidence of pulmonary embolism or thoracic aortic dissection. 2. Small left effusion. CT ABDOMEN AND PELVIS: No discrete liver mass is detected. Gallbladder appears to be surgically absent. No biliary ductal dilatation is seen. The pancreas and spleen are unremarkable. There is no adrenal mass. Right kidney is unremarkable. Left kidney again demonstrates numerous nonobstructing calculi, largest in the region of the renal pelvis approximately 50 mm x 9 mm. Previously seen gas within the collecting system on the left side is no longer visualized. Aorta is unremarkable. There is an abdominal wall hernia in the right abdomen. Portions of the right colon are located through the hernia defect in the right flank subcutaneous tissues. This is suggestive of a spigelian hernia versus an incisional hernia. Clinical correlation to surgery at this location is recommended. No bowel obstruction or evidence of strangulation is seen. Small bowel loops are normal caliber. No free fluid or fluid collection identified. There is diverticulosis of the sigmoid but no evidence of diverticulitis. Previously noted obturator lymphadenopathy has significantly improved. Only small obturator nodes are now seen bilaterally. No inguinal lymphadenopathy is seen. Bladder is decompressed. IMPRESSION: 1. Bilateral nephrolithiasis, similar to prior study. Previously noted gas within the left renal collecting system is no longer visualized. 2. Right anterolateral abdominal wall hernia containing portions of the ascending colon. No bowel obstruction or strangulation is identified. 3. Uncomplicated diverticulosis of the sigmoid. 4. Significant improvement in pelvic lymphadenopathy when compared with prior study from 02/28/2019. Dictated by: Dictated on workstation # [id number]
== END ==
LOC: RAD 08:44
PROVIDERS: ATTEND Nurse Practitioner Adult Health
DX: R06.00 Dyspnea, unspecified (principal); J90 Pleural effusion, not elsewhere classified; C53.8 Malignant neoplasm of overlapping sites of cervix uteri; N20.0 Calculus of kidney; K43.9 Ventral hernia without obstruction or gangrene; K57.30 Diverticulosis of large intestine without perforation or abscess without bleeding; R59.0 Localized enlarged lymph nodes
CPT/HCPCS: 71275; 74178; 94060; 94726; 94729

== ENCOUNTER 2019-07-27 11:00 | Outpatient (RCR) | payer MEDICARE, OTHER ==
[2019-07-06] MEDS: MAGNESIUM 1 GM/D5W 100 ML IVPB IV SCH ×2 (14:10→15:10)
[2019-07-06 16:10] VITALS: BP 132/72
[2019-07-13 13:25] VITALS: BP 123/70
[2019-07-13] MEDS: MAGNESIUM 1 GM/100 ML IVPB 100 ML IV SCH ×2 (13:49→13:50)
--- NOTE | 2019-07-13 16:25 | NUR ---
TO WAITING PRIVATE CAR, ACCOMPANIED BY AND STAFF, PER W/C, ASSISTED INTO CAR, WILL DRIVE PT HOME. IV WAS DC'D. NO REDNESS OR EDEMA AT SITE. LIGHT PRESSURE DSG ON.
[2019-07-16 10:55] VITALS: BP 124/63
[2019-07-16 11:04] LABS: HEMOGLOBIN 11.8 G/DL (11.5-16.0); MEAN PLATELET VOLUME 8.3 FL (7.4-10.4); RED CELL DISTRIBUTION WIDTH 14.5 % (10.0-14.5); WHITE BLOOD COUNT 4.1 10^3/uL (4.3-11.0)
[2019-07-16 11:27] LABS: ALANINE AMINOTRANSFERASE 7 U/L (0-55); ALBUMIN 3.3 GM/DL (3.2-4.5); ALKALINE PHOSPHATASE 83 U/L (40-136); BILIRUBIN,TOTAL 0.8 MG/DL (0.1-1.0); BUN/CREATININE RATIO 16; CALCIUM 9.3 MG/DL (8.5-10.1); CARBON DIOXIDE 29 MMOL/L (21-32); CHLORIDE 99 MMOL/L (98-107); CREATININE SERUM 0.75 MG/DL (0.60-1.30); GFR ESTIMATED > 60; GLUCOSE 191 MG/DL (70-105); MAGNESIUM 1.5 MG/DL (1.6-2.4); POTASSIUM 3.4 MMOL/L (3.6-5.0); SODIUM 138 MMOL/L (135-145); TOTAL PROTEIN 7.7 GM/DL (6.4-8.2)
[2019-07-16 12:21] LABS: BILIRUBIN,URINE NEGATIVE (NEGATIVE); CLARITY,URINE CLEAR; COLOR,URINE YELLOW; GLUCOSE, URINE (UA) NEGATIVE (NEGATIVE); KETONES,URINE 1+ (NEGATIVE); LEUKOCYTE ESTERASE ,URINE 1+ (NEGATIVE); NITRITE,URINE NEGATIVE (NEGATIVE); PH,URINE 5.5 (5-9); PROTEIN,URINE TRACE (NEGATIVE)
[2019-07-16 12:36] LABS: AMORPHOUS SEDIMENT,UR RARE AMOR URATES /LPF; BACTERIA,URINE TRACE /HPF; SQUAMOUS EPITHELIAL CELL,UR RARE /HPF; WBC,URINE 25-50 /HPF
[2019-07-16 12:37] LABS: CALCIUM OXALATE CRYSTALS,UR RARE /LPF
[2019-07-16 13:25] VITALS: BP 124/63
[~2019-07-27] VITALS: Ht 165.1 cm; Wt 75.0 kg
[~2019-07-27 11:00] MED LIST changes: -BARIUM SUSPENSION 2.1% (VANILLA SILQ) 450 ML PO ONE; +CATHETER FLUSH 10 ML SYR IV PRN; -HOLD METFORMIN - RECEIVED CONTRAST 20 ML VIAL IV SCH; -IOHEXOL 350 MG/ML 100 ML (OMNIPAQUE 350) VIAL IV ONE; +LACTATED RINGERS 1,000 ML IV ONE; +LACTATED RINGERS 1,000 ML IV SCH; +MAGNESIUM 1 GM/100 ML IVPB 200 ML IV ONE; -NS 100 ML (IVPB) BAG IV ONE; -RT-ALBUTEROL SULF 2.5 MG/3 ML PRE-MIX VIAL INH ONE; +cefTRIAXone 1,000 MG/SWFI 10 ML IV PUSH IV ONE
[2019-07-27] MEDS ORDERED: MAGNESIUM 1 GM/100 ML IVPB 200 ML IV ONE (11:10)
[2019-07-27] MEDS ORDERED: LACTATED RINGERS 1,000 ML IV ONE (11:10)
[2019-07-27] MEDS ORDERED: MAGNESIUM 1 GM/D5W 100 ML IVPB IV SCH (11:45)
[2019-07-27 13:06] VITALS: BP 120/67
[2019-09-05] MEDS ORDERED: CARB1DRO OU (09:45)
[2019-09-05] MEDS ORDERED: CYAN-41 PO (09:45)
[2019-09-05] MEDS ORDERED: ASCO500T17 PO (09:45)
[2019-09-05] MEDS ORDERED: MAGN250T13 PO (09:45)
[2019-09-05] MEDS ORDERED: CALC-880 PO (09:45)
[2019-09-05] MEDS ORDERED: CEFD300C3 PO (12:02)
[2019-09-23] MEDS ORDERED: ONDA4TAB11 PO (12:41)
[2019-09-29] MEDS ORDERED: CEPH-506 PO (12:48)
== END 2019-10-04 | disposition still patient (30) ==
LOC: SDC 11:00
PROVIDERS: ATTEND Nurse Practitioner Family
DX: E86.0 Dehydration (principal); E83.42 Hypomagnesemia
CPT/HCPCS: 36415; 80053; 81000; 83735; 85027; 87088; 96360; 96361; 96365; 96366; 96374

== ENCOUNTER 2019-09-04 12:23 | Inpatient (IN) | payer MEDICARE, OTHER ==
[~2019-09-04] VITALS: Ht 165.1 cm; Wt 66.2 kg
[~2019-09-04 12:23] MED LIST changes: -CATHETER FLUSH 10 ML SYR IV PRN; -LACTATED RINGERS 1,000 ML IV ONE; -LACTATED RINGERS 1,000 ML IV SCH; -MAGNESIUM 1 GM/100 ML IVPB 200 ML IV ONE; -cefTRIAXone 1,000 MG/SWFI 10 ML IV PUSH IV ONE
--- NOTE | 2019-09-04 12:36 | ED Syncope ---
General Stated Complaint: NEAR SYNCOPE History of Present Illness Date Seen by Provider: Sep 04, 2019 Time Seen by Provider: 12:35 Initial Comments This patient is a 6-year-old female has history of cervical cancer presents to the emergency department for near syncopal episode. Patient did not pass out and did not fall. Patient states she discuss issues the bathroom and got lightheaded when she stood up. Patient does have issues with pressure ulcers in her sacral area and buttocks that has been followed by wound care and [facility]. Patient is also on chemotherapy radiation therapy. Patient describes herself as being weak all the time. Patient is receiving IV fluid bolus via EMS upon arrival. We will continue that fluid bolus. We'll do medical evaluation treatment is needed. Timing/Prior Episodes: Single Episode Today Symptoms Prior to Episode: None Precipitating Factors: None Loss of Consciousness: Brief (Seconds) Current Symptoms: Back to Normal Allergies and Home Medications Allergies Coded Allergies: Penicillins (Verified Allergy, Severe, SOA, 07/12/19) ciprofloxacin (Verified Allergy, Severe, BURNING SENSATION, 07/12/19) Sulfa (Sulfonamide Antibiotics) (Verified Allergy, Unknown, 07/12/19) bacitracin (Verified Allergy, Unknown, 07/12/19) benazepril (Verified Allergy, Unknown, 09/04/19) Home Medications Albuterol Sulfate 1 Puff Puff, 2 PUFF IH Q4H PRN for cough 1 PUFF = 90 MCG Prescribed by: BINDU JACOBSON on 06/04/191828 Carvedilol 12.5 Mg Tablet, 12.5 MG PO BID, (Reported) Insulin Glargine,Hum.rec.anlog 100 Unit/1 Ml Insuln.pen, 15 UNIT SQ HS, (Reported) Loratadine 10 Mg Capsule, 10 MG PO DAILY, (Reported) Patient Home Medication List Home Medication List Reviewed: Yes Review of Systems Constitutional: No no symptoms reported; see HPI; No chills, No diaphoresis, No dizziness, No fever, No malaise, No weakness, No weight gain, No weight loss, No other EENTM: No see HPI, No no symptoms reported, No ear discharge, No hearing loss, No ear pain, No blurred vision, No double vision, No eye pain, No tearing, No vision loss, No dental problems, No hoarseness, No mouth pain, No mouth swelling, No epistaxis, No nose congestion, No nose pain, No throat pain, No throat swelling, No other Respiratory: No no symptoms reported, No see HPI, No cough, No dyspnea on exertion, No hemoptysis, No orthopnea, No phlegm, No short of breath, No stridor, No wheezing, No other Cardiovascular: No no symptoms reported, No see HPI, No chest pain, No edema, No Hx of Intervention, No palpitations; syncope; No vascular heart diseas, No other Gastrointestinal: No RUQ, No LUQ, No RLQ, No LLQ, No no symptoms reported, No see HPI, No abdominal pain, No constipation, No diarrhea, No dysphagia, No hematemesis, No heartburn, No jaundice, No loss of appetite, No melena, No nausea, No vomiting, No other Genitourinary: No no symptoms reported, No see HPI, No decreased output, No discharge, No dysuria, No frequency, No hematuria, No hesitancy, No incontinence, No nocturia, No pain, No other Musculoskeletal: see HPI Skin: see HPI, change in color, lesions Psychiatric/Neurological: See HPI, Weakness Past Vzyjbcm-Criidc-Npwtyv Hx Patient Social History 2nd Hand Smoke Exposure: No Recent Foreign Travel: Yes Recent Hopitalizations: No Seasonal Allergies Seasonal Allergies: Yes Past Medical History Surgeries: Yes (BRACHYTHERAPY-CERVIX ) Appendectomy, Gallbladder, Tonsillectomy Respiratory: No Cardiac: Yes Hypertension Neurological: Yes Traumatic Brain Injury Sexually Transmitted Disease: No HIV/AIDS: No Genitourinary: No Gastrointestinal: No Musculoskeletal: No Endocrine: Yes Diabetes, Insulin dep HEENT: No Cancer: Yes Cervical Did You Recieve Any Treatments: Yes What Type of Treatment Did You: Radiation Psychosocial: No Integumentary: No Blood Disorders: No Physical Exam Vital Signs Vital Signs - First Documented 09/04/19 12:25 Temp 36.7 Pulse 88 Resp 18 B/P (MAP) 124/45 (71) Pulse Ox 98 O2 Delivery Room Air Capillary Refill : Height, Weight, BMI Height: '" Weight: lbs. oz. kg; 27.36 BMI Method: General Appearance: No Apparent Distress, WD/WN HEENT: PERRL/EOMI, TMs Normal, Normal ENT Inspection, Pharynx Normal Neck: Full Range of Motion, Normal Inspection, Non Tender, Supple Cardiovascular: Regular Rate, Rhythm, No Edema, No Gallop, No JVD, No Murmur, Normal Peripheral Pulses Respiratory: Chest Non Tender, Lungs Clear, Normal Breath Sounds, No Accessory Muscle Use, No Respiratory Distress Gastrointestinal: Normal Bowel Sounds, No Organomegaly, No Pulsatile Mass, Non Tender, Soft Back: Normal Inspection, No CVA Tenderness, No Vertebral Tenderness Extremities: Normal Capillary Refill, Normal Inspection, Normal Range of Motion, Non Tender, No Calf Tenderness, No Pedal Edema Neurologic/Psychiatric: Alert, Oriented x3, No Motor/Sensory Deficits, Normal Mood/Affect Cranial Nerves: Normal Hearing, Normal Speech, PERRL Coordination/Gait: Normal Finger to Nose, Normal Gait, Negative Romberg's Sign Motor/Sensory: No Motor Deficit, No Sensory Deficit, No Pronator Drift Skin: Normal Color, Warm/Dry, Cool, Other (patient has stage III decubitus ulcer to the buttocks area and is followed by wound care. No significant induration no significant signs of gross infection to the area. Patient's area does appear to be dry.) Progress/Results/Core Measures Results/Orders Lab Results Laboratory Tests Test 09/04/19 12:30 Range/Units White Blood Count 3.8 L 4.3-11.0 10^3/uL Red Blood Count 3.66 L 4.35-5.85 10^6/uL Hemoglobin 11.3 L 11.5-16.0 G/DL Hematocrit 34 L 35-52 % Mean Corpuscular Volume 92 80-99 FL Mean Corpuscular Hemoglobin 31 25-34 PG Mean Corpuscular Hemoglobin Concent 33 32-36 G/DL Red Cell Distribution Width 14.5 10.0-14.5 % Platelet Count 196 130-400 10^3/uL Mean Platelet Volume 8.7 7.4-10.4 FL Neutrophils (%) (Auto) 76 H 42-75 % Lymphocytes (%) (Auto) 15 12-44 % Monocytes (%) (Auto) 7 0-12 % Eosinophils (%) (Auto) 2 0-10 % Basophils (%) (Auto) 0 0-10 % Neutrophils # (Auto) 2.9 1.8-7.8 X 10^3 Lymphocytes # (Auto) 0.6 L 1.0-4.0 X 10^3 Monocytes # (Auto) 0.3 0.0-1.0 X 10^3 Eosinophils # (Auto) 0.1 0.0-0.3 10^3/uL Basophils # (Auto) 0.0 0.0-0.1 10^3/uL Prothrombin Time 13.6 12.2-14.7 SEC INR Comment 1.0 0.8-1.4 Sodium Level 142 135-145 MMOL/L Potassium Level 3.5 L 3.6-5.0 MMOL/L Chloride Level 101 98-107 MMOL/L Carbon Dioxide Level 27 21-32 MMOL/L Anion Gap 14 5-14 MMOL/L Blood Urea Nitrogen 16 7-18 MG/DL Creatinine 0.71 0.60-1.30 MG/DL Estimat Glomerular Filtration Rate > 60 BUN/Creatinine Ratio 23 Glucose Level 131 H 70-105 MG/DL Calcium Level 9.5 8.5-10.1 MG/DL Corrected Calcium 10.2 H 8.5-10.1 MG/DL Total Bilirubin 0.7 0.1-1.0 MG/DL Aspartate Amino Transf (AST/SGOT) 16 5-34 U/L Alanine Aminotransferase (ALT/SGPT) 5 0-55 U/L Alkaline Phosphatase 61 40-136 U/L Troponin I < 0.30 <0.30 NG/ML Pro-B-Type Natriuretic Peptide 90.6 H <75.0 PG/ML Total Protein 6.6 6.4-8.2 GM/DL Albumin 3.1 L 3.2-4.5 GM/DL My Orders Orders - BONG MONROY MD Ct Head Wo (09/04/19 12:27) Orthostatic Vital Signs (Adult (09/04/19 12:27) Cbc With Automated Diff (09/04/19 12:27) Comprehensive Metabolic Panel (09/04/19 12:27) Troponin I Fs (09/04/19 12:27) Probnp Fs (09/04/19 12:27) Protime With Inr (09/04/19 12:27) Urinalysis (09/04/19 12:27) Chest 1 View Ap/Pa Only (09/04/19 12:27) Ekg Tracing (09/04/19 12:27) Ns Iv 1000 Ml (Sodium Chloride 0.9%) (09/04/19 13:01) Vital Signs/I&O 09/04/19 09/04/19 12:25 12:45 Temp 36.7 Pulse 88 84 91 88 Resp 18 B/P (MAP) 124/45 (71) 116/61 (79) 99/59 (72) 73/42 (52) Pulse Ox 98 O2 Delivery Room Air Patient had orthostatic blood pressures checked. Lying heart rate 84 blood pressure 116/61. Sitting heart rate increased to 91 with blood pressure dropped to 99/59. Standing heart rate increased to 102 and blood pressure dropped to 73/42. Patient appears to be a positive orthostatic hypertension. Progress Progress Note : Time: 14:11 Progress Note Patient is feeling much improved after IV fluid boluses. Patient's blood pressure running in the low. We did discuss at length patient be admitted to observation to [facility]. Per Dr. Ashton. He will see patient on arrival. Initial ECG Impression Date: Sep 04, 2019 Initial ECG Impression Time: 12:36 Initial ECG Rate: 81 Initial ECG Rhythm: Normal Sinus Initial ECG Intervals: Normal Initial ECG Impression: Normal, Nonspecific Changes Comment Sinus rhythm with a heart rate of 81 nonspecific EKG changes. Nondiagnostic Departure Impression Primary Impression: Orthostatic hypotension Additional Impressions: Syncope, near Decubitus ulcer Disposition: ADMITTED INPATIENT Condition: Stable Departure-Patient Inst. Referrals: RUSSELL OSORIO DO (PCP) Primary Care Physician OBINNA OSORIO DNP (Family) Primary Care Physician BONG MONROY MD Sep 04, 2019 12:36
--- OUTSIDE RECORDS SUMMARY | 2019-09-04 12:44 | XMS REPORT | Continuity of Care Document ---
Author Organization Unknown Address Unknown Phone Unavailable Allergies Active Description Code Type Severity Reaction Onset Reported/Identified Relationship to Patient Clinical Status Yes No Allergy Information Available [id number] Drug Allergy Unknown N/A 019 Yes ciprofloxacin [id number] Tramaine g Allergy Severe BURNING SENSATI 07/12/2019 Yes Penicillins [id number] Drug Aller gy Severe SOA 07/12/2019 Yes bacitracin [id number] Drug Allerg y Unknown N/A 07/12/2019 Yes Sulfa (Sulfonamide Antibiotics) [id number] Drug Allergy Unknown N/A 020 Medications There is no data. Problems Date Dx Coded Attending Type Code Diagnosis Diagnosed By 02/28/2019 KWASI PEREZ MD Ot I10 ESSENTIAL (PRIMARY) HYPERTENSION 02/28/2019 KWASI PEREZ MD Ot I77. 9 DISORDER OF ARTERIES AND ARTERIOLES, UNS 02/28/2019 KWASI PEREZ MD Ot K57. 3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 02/28/2019 KWASI PEREZ MD Ot N13. 2 HYDRONEPHROSIS WITH RENAL AND URETERAL C 02/28/2019 KWASI PEREZ MD Ot N39. 0 URINARY TRACT INFECTION, SITE NOT SPECIF 02/28/2019 KWASI PEREZ MD Ot N88. 8 OTHER SPECIFIED NONINFLAMMATORY DISORDER 02/28/2019 KWASI PEREZ MD Ot N95. 0 POSTMENOPAUSAL BLEEDING 02/28/2019 KWASI PEREZ MD Ot R59. 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 0 ALLERGY STATUS TO PENICILLIN 02/28/2019 KWASI PEREZ MD Ot Z88. 1 ALLERGY STATUS TO OTHER ANTIBIOTIC AGENT 02/28/2019 KWASI PEREZ MD Ot Z88. 2 ALLERGY STATUS TO SULFONAMIDES STATUS 02/28/2019 KWASI PEREZ MD Ot Z88. 8 ALLERGY STATUS TO OTH DRUG/MEDS/BIOL SUB 02/28/2019 KWASI PEREZ MD Ot Z90. 49 ACQUIRED ABSENCE OF OTHER SPECIFIED PART 02/28/2019 KWASI PEREZ MD Ot Z90. 89 ACQUIRED ABSENCE OF OTHER ORGANS 03/01/2019 KWASI PEREZ MD Ot I10 ESSENTIAL (PRIMARY) HYPERTENSION 03/01/2019 KWASI PEREZ MD Ot N88. 8 OTHER SPECIFIED NONINFLAMMATORY DISORDER 03/01/2019 KWASI PEREZ MD Ot N93. 9 ABNORMAL UTERINE AND VAGINAL BLEEDING, U 03/01/2019 KWASI PEREZ MD Ot R57. 8 OTHER SHOCK 03/01/2019 KWASI PEREZ MD Ot Z87.820 PERSONAL HISTORY OF TRAUMATIC BRAIN INJU 03/01/2019 KWASI PEREZ MD Ot Z88. 0 ALLERGY STATUS TO PENICILLIN 03/01/2019 KWASI PEREZ MD Ot Z88. 1 ALLERGY STATUS TO OTHER ANTIBIOTIC AGENT 03/01/2019 KWASI PEREZ MD Ot Z88. 2 ALLERGY STATUS TO SULFONAMIDES STATUS 03/01/2019 KWASI PEREZ MD Ot Z88. 8 ALLERGY STATUS TO OTH DRUG/MEDS/BIOL SUB 03/01/2019 KWASI PEREZ MD Ot Z90. 49 ACQUIRED ABSENCE OF OTHER SPECIFIED PART 03/01/2019 KWASI PEREZ MD Ot Z90. 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 9 DISORDER OF ARTERIES AND ARTERIOLES, UNS 03/05/2019 KWASI PEREZ MD Ot N39. 0 URINARY TRACT INFECTION, SITE NOT SPECIF 03/05/2019 KWASI PEREZ MD Ot N95. 0 POSTMENOPAUSAL BLEEDING 03/05/2019 KWASI PEREZ MD Ot Z87.820 PERSONAL HISTORY OF TRAUMATIC BRAIN INJU 03/05/2019 KWASI PEREZ MD Ot Z88. 0 ALLERGY STATUS TO PENICILLIN 03/05/2019 KWASI PEREZ MD Ot Z88. 1 ALLERGY STATUS TO OTHER ANTIBIOTIC AGENT 03/05/2019 KWASI PEREZ MD Ot Z88. 2 ALLERGY STATUS TO SULFONAMIDES STATUS 03/05/2019 KWASI PEREZ MD Ot Z88. 8 ALLERGY STATUS TO OTH DRUG/MEDS/BIOL SUB 03/05/2019 KWASI PEREZ MD Ot Z90. 49 ACQUIRED ABSENCE OF OTHER SPECIFIED PART 03/05/2019 KWASI PEREZ MD Ot Z90. 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 9 DISORDER OF ARTERIES AND ARTERIOLES, UNS 03/07/2019 KWASI PEREZ MD Ot N39. 0 URINARY TRACT INFECTION, SITE NOT SPECIF 03/07/2019 KWASI PEREZ MD Ot N95. 0 POSTMENOPAUSAL BLEEDING 03/07/2019 KWASI PEREZ MD Ot Z87.820 PERSONAL HISTORY OF TRAUMATIC BRAIN INJU 03/07/2019 KWASI PEREZ MD Ot Z88. 0 ALLERGY STATUS TO PENICILLIN 03/07/2019 KWASI PEREZ MD Ot Z88. 1 ALLERGY STATUS TO OTHER ANTIBIOTIC AGENT 03/07/2019 KWASI PEREZ MD Ot Z88. 2 ALLERGY STATUS TO SULFONAMIDES STATUS 03/07/2019 KWASI PEREZ MD Ot Z88. 8 ALLERGY STATUS TO OTH DRUG/MEDS/BIOL SUB 03/07/2019 KWASI PEREZ MD Ot Z90. 49 ACQUIRED ABSENCE OF OTHER SPECIFIED PART 03/07/2019 KWASI PEREZ MD Ot Z90. 89 ACQUIRED ABSENCE OF OTHER ORGANS 03/20/2019 KWASI PEREZ MD Ot I10 ESSENTIAL (PRIMARY) HYPERTENSION 03/20/2019 KWASI PEREZ MD Ot I77. 9 DISORDER OF ARTERIES AND ARTERIOLES, UNS 03/20/2019 KWASI PEREZ MD Ot K57. 3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 03/20/2019 KWASI PEREZ MD Ot N13. 2 HYDRONEPHROSIS WITH RENAL AND URETERAL C 03/20/2019 KWASI PEREZ MD Ot N39. 0 URINARY TRACT INFECTION, SITE NOT SPECIF 03/20/2019 KWASI PEREZ MD Ot N88. 8 OTHER SPECIFIED NONINFLAMMATORY DISORDER 03/20/2019 KWASI PEREZ MD Ot N95. 0 POSTMENOPAUSAL BLEEDING 03/20/2019 KWASI PEREZ MD Ot R59. 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 0 ALLERGY STATUS TO PENICILLIN 03/20/2019 KWASI PEREZ MD Ot Z88. 1 ALLERGY STATUS TO OTHER ANTIBIOTIC AGENT 03/20/2019 KWASI PEREZ MD Ot Z88. 2 ALLERGY STATUS TO SULFONAMIDES STATUS 03/20/2019 KWASI PEREZ MD Ot Z88. 8 ALLERGY STATUS TO OTH DRUG/MEDS/BIOL SUB 03/20/2019 KWASI PEREZ MD Ot Z90. 49 ACQUIRED ABSENCE OF OTHER SPECIFIED PART 03/20/2019 KWASI PEREZ MD Ot Z90. 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 9 DISORDER OF ARTERIES AND ARTERIOLES, UNS 03/29/2019 KWASI PEREZ MD Ot K57. 3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 03/29/2019 KWASI PEREZ MD Ot N13. 2 HYDRONEPHROSIS WITH RENAL AND URETERAL C 03/29/2019 KWASI PEERZ MD Ot N39. 0 URINARY TRACT INFECTION, SITE NOT SPECIF 03/29/2019 KWASI PEREZ MD Ot N88. 8 OTHER SPECIFIED NONINFLAMMATORY DISORDER 03/29/2019 KWASI PEREZ MD Ot N95. 0 POSTMENOPAUSAL BLEEDING 03/29/2019 KWASI PEREZ MD Ot R59. 0 LOCALIZED ENLARGED LYMPH NODES 03/29/2019 KWASI PEREZ MD Ot Z01.411 ENCNTR FOR [employer]EST [employer] EQUIPMENT OPERATOR EXAM (GENERAL) (ROUTINE) 03/29/2019 KWASI PEREZ MD Ot Z87.820 PERSONAL HISTORY OF TRAUMATIC BRAIN INJU 03/29/2019 KWASI PEREZ MD Ot Z88. 0 ALLERGY STATUS TO PENICILLIN 03/29/2019 KWASI PEREZ MD Ot Z88. 1 ALLERGY STATUS TO OTHER ANTIBIOTIC AGENT 03/29/2019 KWASI PEREZ MD Ot Z88. 2 ALLERGY STATUS TO SULFONAMIDES STATUS 03/29/2019 ANA MENDEZ, KWASI Michael Ot Z88. 8 ALLERGY STATUS TO OTH DRUG/MEDS/BIOL SUB 03/29/2019 ANA MENDEZ, KWASI Michael Ot Z90. 49 ACQUIRED ABSENCE OF OTHER SPECIFIED PART 03/29/2019 ANA MENDEZ, KWASI Michael Ot Z90. 89 ACQUIRED ABSENCE OF OTHER ORGANS 05/18/2019 OSORIOLIYA FRIASRICIA L PROVIDER RELATIONS CONSULTANT Ot E11.69 TYPE 2 DIABETES MELLITUS WITH OTHER SPEC 05/18/2019 OSORIO, OBINNA L PROVIDER RELATIONS CONSULTANT Ot E11.69 TYPE 2 DIABETES MELLITUS WITH OTHER SPEC 05/18/2019 OSORIO, OBINNA L PROVIDER RELATIONS CONSULTANT Ot D64.89 OTHER SPECIFIED ANEMIAS 05/18/2019 LIYA OSORIORICIA L PROVIDER RELATIONS CONSULTANT Ot E11.69 TYPE 2 DIABETES MELLITUS WITH OTHER SPEC 05/18/2019 LIYA OSORIORICIA L PROVIDER RELATIONS CONSULTANT Ot E83.42 HYPOMAGNESEMIA 05/18/2019 LIYA OSORIORICIA L PROVIDER RELATIONS CONSULTANT Ot E86.0 DEHYDRATION 05/18/2019 LIYA OSORIORICIA L PROVIDER RELATIONS CONSULTANT Ot R06.09 OTHER FORMS OF DYSPNEA 05/18/2019 DEVON OBINNA L PROVIDER RELATIONS CONSULTANT Ot E11.69 TYPE 2 DIABETES MELLITUS WITH OTHER SPEC 05/22/2019 SHIRA GALVAN PROVIDER RELATIONS CONSULTANT Ot K57.3 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 05/22/2019 SHIRA GALVAN PROVIDER RELATIONS CONSULTANT Ot N13.2 HYDRONEPHROSIS WITH RENAL AND URETERAL C 05/22/2019 SHIRA GALVAN PROVIDER RELATIONS CONSULTANT Ot N88.8 OTHER SPECIFIED NONINFLAMMATORY DISORDER 05/22/2019 SHIRA GALVAN PROVIDER RELATIONS CONSULTANT Ot N95.0 POSTMENOPAUSAL BLEEDING 05/22/2019 SHIRA GALVAN PROVIDER RELATIONS CONSULTANT Ot R59.0 LOCALIZED ENLARGED LYMPH NODES 05/22/2019 SHIRA GALVAN PROVIDER RELATIONS CONSULTANT Ot Z01.4 11 ENCN[employer] FOR [employer] EQUIPMENT OPERATOR EXAM (GENERAL) (ROUTINE) 05/24/2019 OBINNA OSORIO L PROVIDER RELATIONS CONSULTANT Ot E83.42 HYPOMAGNESEMIA 05/24/2019 LIYA OSORIORICIA L PROVIDER RELATIONS CONSULTANT Ot E86.0 DEHYDRATION 05/24/2019 LIYA OSORIORICIA L PROVIDER RELATIONS CONSULTANT Ot Z88.0 ALLERGY STATUS TO PENICILLIN 05/24/2019 LIYA OSORIORICIA L PROVIDER RELATIONS CONSULTANT Ot Z88.2 ALLERGY STATUS TO SULFONAMIDES STATUS 05/26/2019 OSORIO, OBINNA L PROVIDER RELATIONS CONSULTANT Ot E83.42 HYPOMAGNESEMIA 05/26/2019 OSORIO, OBINNA L PROVIDER RELATIONS CONSULTANT Ot E86.0 DEHYDRATION 05/26/2019 OSORIO, OBINNA L PROVIDER RELATIONS CONSULTANT Ot Z88.0 ALLERGY STATUS TO PENICILLIN 05/26/2019 OSORIO, OBINNA L PROVIDER RELATIONS CONSULTANT Ot Z88.2 ALLERGY STATUS TO SULFONAMIDES STATUS 05/28/2019 OSORIO, OBINNA L PROVIDER RELATIONS CONSULTANT Ot E83.42 HYPOMAGNESEMIA 05/28/2019 OSORIO, OBINNA L PROVIDER RELATIONS CONSULTANT Ot E86.0 DEHYDRATION 05/28/2019 OSORIO, OBINNA L PROVIDER RELATIONS CONSULTANT Ot Z88.0 ALLERGY STATUS TO PENICILLIN 05/28/2019 OSORIO, OBINNA L PROVIDER RELATIONS CONSULTANT Ot Z88.2 ALLERGY STATUS TO SULFONAMIDES STATUS 05/30/2019 ISHAAN MENDEZ, MARIANNE Cunningham Ot D68.9 COAGULATION DEFECT, UNSPECIFIED 05/30/2019 ISHAAN MENDEZ, MARIANNE Cunningham Ot I 96 GANGRENE, NOT ELSEWHERE CLASSIFIED 05/30/2019 ISHAAN MENDEZ, MARIANNE Cunningham Ot 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, STAGE 3 05/30/2019 ISHAAN MENDEZ, MARIANNE Cunningham Ot N39.0 URINARY TRACT INFECTION, SITE NOT SPECIF 05/31/2019 CORALSARA Ot 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, UNSP 06/04/2019 ROVENSTINE DO, BINDU L Ot D70.9 NEUTROPENIA, UNSPECIFIED 06/04/2019 ROVENSTINE DO, BINDU L Ot I10 ESSENTIAL (PRIMARY) HYPERTENSION 06/04/2019 ROVENSTINE DO, BINDU L Ot R06.00 DYSPNEA, UNSPECIFIED 06/04/2019 ROVENSTINE DO, BINDU L Ot Z85.41 PERSONAL HISTORY OF MALIGNANT NEOPLASM O 06/04/2019 ROVENSTINE DOBINDU L Ot Z87.820 PERSONAL HISTORY OF TRAUMATIC BRAIN INJU 06/04/2019 ROVENSTINE DO, BINDU L Ot Z88.0 ALLERGY STATUS TO PENICILLIN 06/04/2019 ROVENSTINE DO, BINDU L Ot Z88.1 ALLERGY STATUS TO OTHER ANTIBIOTIC AGENT 06/04/2019 ROVENSTINE DO, BINDU Parr Ot Z88.2 ALLERGY STATUS TO SULFONAMIDES STATUS 06/04/2019 ROVENSTINE DO, BINDU Keshav Ot Z90.49 ACQUIRED ABSENCE OF OTHER SPECIFIED PART 06/04/2019 ROVENSTINE DO, BINDU Keshav Ot Z90.89 ACQUIRED ABSENCE OF OTHER ORGANS 06/04/2019 ROVENSTINE DO, BINDU Keshav Ot Z92.21 PERSONAL HISTORY OF ANTINEOPLASTIC CHEMO 06/06/2019 ROVENSTINE DO, BINDU L Ot D70.9 NEUTROPENIA, UNSPECIFIED 06/06/2019 ROVENSTINE DO, BINDU L Ot I10 ESSENTIAL (PRIMARY) HYPERTENSION 06/06/2019 ROVENSTINE DO, BINDU Parr Ot R06.00 DYSPNEA, UNSPECIFIED 06/06/2019 ROVENSTINE DO, BINDU Keshav Ot Z85.41 PERSONAL HISTORY OF MALIGNANT NEOPLASM O 06/06/2019 ROVENSTINE DO, BINDU Keshav Ot Z87.820 PERSONAL HISTORY OF TRAUMATIC BRAIN INJU 06/06/2019 ROVENSTINE DO, BINDU Keshav Ot Z88.0 ALLERGY STATUS TO PENICILLIN 06/06/2019 ROVENSTINE DO, BINDU Keshav Ot Z88.1 ALLERGY STATUS TO OTHER ANTIBIOTIC AGENT 06/06/2019 ROVENSTINE DO, BINDU Keshav Ot Z88.2 ALLERGY STATUS TO SULFONAMIDES STATUS 06/06/2019 ROVENSTINE DO, BINDU eKshav Ot Z90.49 ACQUIRED ABSENCE OF OTHER SPECIFIED PART 06/06/2019 ROVENSTINE DO, BINDU Keshav Ot Z90.89 ACQUIRED ABSENCE OF OTHER ORGANS 06/06/2019 ROVENSTINE DO, BINDU Keshav Ot Z92.21 PERSONAL HISTORY OF ANTINEOPLASTIC CHEMO 06/11/2019 OBINNA OSORIO PROVIDER RELATIONS CONSULTANT Ot E83.42 HYPOMAGNESEMIA 06/11/2019 OBINNA OSORIO PROVIDER RELATIONS CONSULTANT Ot E86.0 DEHYDRATION 06/11/2019 OBINNA OSORIO PROVIDER RELATIONS CONSULTANT Ot J70.1 CHRONIC AND OTHER PULMONARY MANIFESTATIO 06/11/2019 OBINNA OSORIO PROVIDER RELATIONS CONSULTANT Ot J90 PLEURAL EFFUSION, NOT ELSEWHERE CLASSIFI 06/12/2019 OBINNA OSORIO PROVIDER RELATIONS CONSULTANT Ot J70.1 CHRONIC AND OTHER PULMONARY MANIFESTATIO 06/12/2019 OBINNA OSORIO PROVIDER RELATIONS CONSULTANT Ot J90 PLEURAL EFFUSION, NOT ELSEWHERE CLASSIFI 06/12/2019 OBINNA OSORIO PROVIDER RELATIONS CONSULTANT Ot E83.42 HYPOMAGNESEMIA 06/12/2019 OBINNA OSORIO PROVIDER RELATIONS CONSULTANT Ot E86.0 DEHYDRATION 06/15/2019 MENDEZ DO, ANGE L Ot J11.1 FLU DUE TO UNIDENTIFIED INFLUENZA VIRUS 06/15/2019 MENDEZ DO, ANGE L Ot R11.1 0 VOMITING, UNSPECIFIED 06/15/2019 MENDEZ DO, ANGE L Ot Z85.4 1 PERSONAL HISTORY OF MALIGNANT NEOPLASM O 06/15/2019 MENDEZ DO, ANGE L Ot Z87.8 20 PERSONAL HISTORY OF TRAUMATIC BRAIN INJU 06/15/2019 MENDEZ DO, ANGE L Ot Z88.0 ALLERGY STATUS TO PENICILLIN 06/15/2019 MENDEZ DO, ANGE L Ot Z88.1 ALLERGY STATUS TO OTHER ANTIBIOTIC AGENT 06/15/2019 MENDEZ DO, ANGE L Ot Z88.2 ALLERGY STATUS TO SULFONAMIDES STATUS 06/15/2019 MENDEZ DO, ANGE L Ot Z88.8 ALLERGY STATUS TO OTH DRUG/MEDS/BIOL SUB 06/17/2019 OBINNA OSORIO PROVIDER RELATIONS CONSULTANT Ot E83.42 HYPOMAGNESEMIA 06/17/2019 OBINNA OSORIO PROVIDER RELATIONS CONSULTANT Ot E86.0 DEHYDRATION 06/19/2019 MENDEZ DO, ANGE L Ot J11.1 FLU DUE TO UNIDENTIFIED INFLUENZA VIRUS 06/19/2019 MENDEZ DO, ANGE L Ot R11.1 0 VOMITING, UNSPECIFIED 06/19/2019 MENDEZ DO, ANGE L Ot Z85.4 1 PERSONAL HISTORY OF MALIGNANT NEOPLASM O 06/19/2019 MENDEZ DO, ANGE L Ot Z87.8 20 PERSONAL HISTORY OF TRAUMATIC BRAIN INJU 06/19/2019 MENDEZ DO, ANGE L Ot Z88.0 ALLERGY STATUS TO PENICILLIN 06/19/2019 MENDEZ DO, ANGE L Ot Z88.1 ALLERGY STATUS TO OTHER ANTIBIOTIC AGENT 06/19/2019 MENDEZ DO, ANGE L Ot Z88.2 ALLERGY STATUS TO SULFONAMIDES STATUS 06/19/2019 MENDEZ DO, ANGE L Ot Z88.8 ALLERGY STATUS TO OTH DRUG/MEDS/BIOL SUB 06/25/2019 WIL OSORIOIA L PROVIDER RELATIONS CONSULTANT Ot E83.42 HYPOMAGNESEMIA 06/25/2019 OSORIO, OBINNA L PROVIDER RELATIONS CONSULTANT Ot E86.0 DEHYDRATION 06/25/2019 OSORIO, OBINNA L PROVIDER RELATIONS CONSULTANT Ot E87.6 HYPOKALEMIA 06/25/2019 OSORIO, OBINNA L PROVIDER RELATIONS CONSULTANT Ot K52.9 NONINFECTIVE GASTROENTERITIS AND COLITIS 06/25/2019 OSORIO, OBINNA L PROVIDER RELATIONS CONSULTANT Ot N39.0 URINARY TRACT INFECTION, SITE NOT SPECIF 06/25/2019 OSORIO, OBINNA L PROVIDER RELATIONS CONSULTANT Ot R68.89 OTHER GENERAL SYMPTOMS AND SIGNS 06/25/2019 DEVON OBINNA L PROVIDER RELATIONS CONSULTANT Ot R68.89 OTHER GENERAL SYMPTOMS AND SIGNS 06/26/2019 ISHAAN MENDEZ, MARIANNE Cunningham Ot D68.9 COAGULATION DEFECT, UNSPECIFIED 06/26/2019 ISHAAN MENDEZ, MARIANNE Cunningham Ot I 96 GANGRENE, NOT ELSEWHERE CLASSIFIED 06/26/2019 ISHAAN MENDEZ, MARIANNE Cunningham Ot 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, STAGE 3 06/26/2019 ISHAAN MENDEZ, MARIANNE Cunningham Ot N39.0 URINARY TRACT INFECTION, SITE NOT SPECIF 06/26/2019 LIYA OSORIORICIA L PROVIDER RELATIONS CONSULTANT Ot E83.42 HYPOMAGNESEMIA 06/26/2019 DEVON OBINNA L PROVIDER RELATIONS CONSULTANT Ot E86.0 DEHYDRATION 06/26/2019 DEVON OBINNA L PROVIDER RELATIONS CONSULTANT Ot E87.6 HYPOKALEMIA 06/26/2019 DEVON OBINNA L PROVIDER RELATIONS CONSULTANT Ot K52.9 NONINFECTIVE GASTROENTERITIS AND COLITIS 06/26/2019 DEVON OBINNA L PROVIDER RELATIONS CONSULTANT Ot N39.0 URINARY TRACT INFECTION, SITE NOT SPECIF 06/26/2019 OSORIO, OBINNA L PROVIDER RELATIONS CONSULTANT Ot R68.89 OTHER GENERAL SYMPTOMS AND SIGNS 06/28/2019 DEVON OBINNA L PROVIDER RELATIONS CONSULTANT Ot E83.42 HYPOMAGNESEMIA 06/28/2019 OSORIO, OBINNA L PROVIDER RELATIONS CONSULTANT Ot E86.0 DEHYDRATION 06/28/2019 DEVON OBINNA L PROVIDER RELATIONS CONSULTANT Ot J70.1 CHRONIC AND OTHER PULMONARY MANIFESTATIO 06/28/2019 DEVON OBINNA L PROVIDER RELATIONS CONSULTANT Ot J90 PLEURAL EFFUSION, NOT ELSEWHERE CLASSIFI 06/29/2019 DEVON OBINNA L PROVIDER RELATIONS CONSULTANT Ot E83.42 HYPOMAGNESEMIA 06/29/2019 OSORIO, OBINNA L PROVIDER RELATIONS CONSULTANT Ot E86.0 DEHYDRATION 07/03/2019 OSORIO, OBINNA L PROVIDER RELATIONS CONSULTANT Ot E83.42 HYPOMAGNESEMIA 07/03/2019 OSORIO, OBINNA L PROVIDER RELATIONS CONSULTANT Ot E86.0 DEHYDRATION 07/03/2019 CORALSARA KIM Lashell Ot 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, UNSP 07/12/2019 DELHASTY DO, ABEBA B Ot Z01.8 18 ENCOUNTER FOR OTHER PREPROCEDURAL EXAMIN 07/12/2019 DELHASTY DO, ABEBA B Ot Z01.8 18 ENCOUNTER FOR OTHER PREPROCEDURAL EXAMIN 07/12/2019 [facility], ABEBA B Ot Z01.8 18 ENCOUNTER FOR OTHER PREPROCEDURAL EXAMIN 07/13/2019 [facility] DO, ABEBA B Ot Z01.8 18 ENCOUNTER FOR OTHER PREPROCEDURAL EXAMIN 07/13/2019 DEVON, OBINNA L PROVIDER RELATIONS CONSULTANT Ot E83.42 HYPOMAGNESEMIA 07/13/2019 OSORIO, OBINNA L PROVIDER RELATIONS CONSULTANT Ot E86.0 DEHYDRATION 07/16/2019 OSORIO, OBINNA L PROVIDER RELATIONS CONSULTANT Ot E83.42 HYPOMAGNESEMIA 07/16/2019 OSORIO, OBINNA L PROVIDER RELATIONS CONSULTANT Ot E86.0 DEHYDRATION 07/16/2019 OSORIO, OBINNA L PROVIDER RELATIONS CONSULTANT Ot E83.42 HYPOMAGNESEMIA 07/16/2019 OSORIO, OBINNA L PROVIDER RELATIONS CONSULTANT Ot E86.0 DEHYDRATION 07/16/2019 OSORIO, OBINNA L PROVIDER RELATIONS CONSULTANT Ot E83.42 HYPOMAGNESEMIA 07/16/2019 OSORIO, OBINNA L PROVIDER RELATIONS CONSULTANT Ot E86.0 DEHYDRATION 07/16/2019 OSORIO, OBINNA L PROVIDER RELATIONS CONSULTANT Ot E83.42 HYPOMAGNESEMIA 07/16/2019 OSORIO, OBINNA L PROVIDER RELATIONS CONSULTANT Ot E86.0 DEHYDRATION 07/20/2019 CATALINA CHENP Ot J 90 PLEURAL EFFUSION, NOT ELSEWHERE CLASSIFI 07/20/2019 RUSSELL OSORIO DO Ot R05 COUGH 07/24/2019 CATALINA CHEN PROVIDER RELATIONS CONSULTANT Ot 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 07/24/2019 CATALINA CHEN PROVIDER RELATIONS CONSULTANT Ot J 90 PLEURAL EFFUSION, NOT ELSEWHERE CLASSIFI 07/24/2019 CATALINA CHEN S PROVIDER RELATIONS CONSULTANT Ot K43.9 VENTRAL HERNIA WITHOUT OBSTRUCTION OR GA 07/24/2019 CATALINA CHEN S PROVIDER RELATIONS CONSULTANT Ot K57.3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 07/24/2019 CATALINA CHEN S PROVIDER RELATIONS CONSULTANT Ot N20.0 CALCULUS OF KIDNEY 07/24/2019 CATALINA CHEN S PROVIDER RELATIONS CONSULTANT Ot R06.00 DYSPNEA, UNSPECIFIED 07/24/2019 CATALINA CHEN S PROVIDER RELATIONS CONSULTANT Ot R59.0 LOCALIZED ENLARGED LYMPH NODES 07/25/2019 Ot 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 07/26/2019 HCEN, CATALINA S PROVIDER RELATIONS CONSULTANT Ot 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 07/26/2019 CHEN, CATALINA S PROVIDER RELATIONS CONSULTANT Ot J 90 PLEURAL EFFUSION, NOT ELSEWHERE CLASSIFI 07/26/2019 APRIL CATALINA S PROVIDER RELATIONS CONSULTANT Ot K43.9 VENTRAL HERNIA WITHOUT OBSTRUCTION OR GA 07/26/2019 CHENCATALINA S PROVIDER RELATIONS CONSULTANT Ot K57.3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 07/26/2019 CATALINA CHEN S PROVIDER RELATIONS CONSULTANT Ot N20.0 CALCULUS OF KIDNEY 07/26/2019 CATALINA CHEN S PROVIDER RELATIONS CONSULTANT Ot R06.00 DYSPNEA, UNSPECIFIED 07/26/2019 CATALINA CHEN S PROVIDER RELATIONS CONSULTANT Ot R59.0 LOCALIZED ENLARGED LYMPH NODES 07/27/2019 OBINNA OSORIO PROVIDER RELATIONS CONSULTANT Ot E83.42 HYPOMAGNESEMIA 07/27/2019 OBINNA OSORIO L PROVIDER RELATIONS CONSULTANT Ot E86.0 DEHYDRATION 08/07/2019 RUSSELL OSORIO DO Ot R05 COUGH 08/07/2019 CHENCATALINA S PROVIDER RELATIONS CONSULTANT Ot J 90 PLEURAL EFFUSION, NOT ELSEWHERE CLASSIFI 08/10/2019 MATHEW GILMORE APRN Ot M79.89 OTHER SPECIFIED SOFT TISSUE DISORDERS 08/14/2019 Ot 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 08/15/2019 APRIL CATALINA S PROVIDER RELATIONS CONSULTANT Ot 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 08/15/2019 CHEN, CATALINA S PROVIDER RELATIONS CONSULTANT Ot J 90 PLEURAL EFFUSION, NOT ELSEWHERE CLASSIFI 08/15/2019 CATALINA CHEN PROVIDER RELATIONS CONSULTANT Ot K43.9 VENTRAL HERNIA WITHOUT OBSTRUCTION OR GA 08/15/2019 CATALINA CHEN PROVIDER RELATIONS CONSULTANT Ot K57.3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 08/15/2019 CATALINA CHEN PROVIDER RELATIONS CONSULTANT Ot N20.0 CALCULUS OF KIDNEY 08/15/2019 CATALINA CHEN PROVIDER RELATIONS CONSULTANT Ot R06.00 DYSPNEA, UNSPECIFIED 08/15/2019 CATALINA CHEN PROVIDER RELATIONS CONSULTANT Ot R59.0 LOCALIZED ENLARGED LYMPH NODES 08/20/2019 SARA MONCADA Lashell Ot 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 Results Test Result Range Complete blood count (CBC) with automate d white blood cell (WBC) differential - 02/28/19 14:15 Blood leukocytes automated count (number/volume) 6.9 10*3/uL 4.3-11.0 Blood erythrocytes automated count (number/volume) 4.74 10*6/uL 4.35-5.85 Venous blood hemoglobin measurement (mass/volume) 13.4 g/dL 11.5-16.0 Blood hematocrit (volume fraction) 39 % 35-52 Automated erythrocyte mean corpuscular volume 83 [ foz_us] 80-99 Automated erythrocyte mean corpuscular h emoglobin (mass per erythrocyte) 28 pg 25-34 Automated erythrocyte mean corpuscular h emoglobin concentration measurement (mass/volume) 34 g/dL 32-36 Automated erythrocyte distribution width ratio 13. 4 % 10.0- 14.5 Automated blood platelet count (count/volume) 244 10*3/uL 130-400 Automated blood platelet mean volume measurement 9.3 [foz_us] 7.4-10.4 Automated blood neutrophils/100 leukocytes 72 % 42-75 Automated blood lymphocytes/100 leukocytes 21 % 12-44 Blood monocytes/100 leukocytes 5 % 0-12 Automated blood eosinophils/100 leukocytes 3 % 0-10 Automated blood basophils/100 leukocytes 0 % 0-10 Blood neutrophils automated count (number/volume) 4.9 10*3 1.8-7.8 Blood lymphocytes automated count (number/volume) 1.4 10*3 1.0-4.0 Blood monocytes automated count (number/volume) 0. 3 10*3 0.0-1.0 Automated eosinophil count 0.2 10*3/uL 0 .0-0.3 Automated blood basophil count (count/volume) 0.0 10*3/uL 0.0-0.1 Comprehensive metabolic panel - 02/28/19 14:15 Serum or plasma sodium measurement (moles/volume) 134 mmol/L 135-145 Serum or plasma potassium measurement (moles/volume) 3.9 mmol/L 3.6-5.0 Serum or plasma chloride measurement (moles/volume) 96 mmol/L 98-107 Carbon dioxide 29 mmol/L 21-32 Serum or plasma anion gap determination (moles/volume) 9 mmol/L 5-14 Serum or plasma urea nitrogen measurement (mass/volume ) 11 mg/dL 7-18 Serum or plasma creatinine measurement (mass/volume) 0.93 mg/dL 0.60-1.30 Serum or plasma urea nitrogen/creatinine mass ratio 12 NRG Serum or plasma creatinine measurement w ith calculation of estimated glomerular filtration rate 60 NRG Serum or plasma glucose measurement (mass/volume) 351 mg/dL 70-105 Serum or plasma calcium measurement (mass/volume) 9.0 mg/dL 8.5-10.1 Serum or plasma total bilirubin measurement (mass/volu me) 1.1 mg/dL 0.1-1.0 Serum or plasma alkaline phosphatase omar surement (enzymatic activity/volume) 98 U/L 40-136 Serum or plasma aspartate aminotransfera se measurement (enzymatic activity/volume) 17 U/L 5-34 Serum or plasma alanine aminotransferase measurement (enzymatic activity/volume) 11 U/L 0-55 Serum or plasma protein measurement (mass/volume) 7.5 g/dL 6.4-8.2 Serum or plasma albumin measurement (mass/volume) 3.7 g/dL 3.2-4.5 CALCIUM CORRECTED 9.2 mg/dL 8.5-10.1 Complete urinalysis with reflex to cultu re - 02/28/19 14:50 Urine color determination YELLOW NRG Urine clarity determination VERY CLOUDY NRG Urine pH measurement by test strip 5 5-9 Specific gravity of urine by test strip 1.010 1.016-1.022 Urine protein assay by test strip, semi-quantitative 2+ NEGATIVE Urine glucose detection by automated test strip 4+ NEGATIVE Erythrocytes detection in urine sediment by light micr oscopy 5+ NEGATIVE Urine ketones detection by automated test strip 3+ NEGATIVE Urine nitrite detection by test strip POSITIVE NEGATIVE Urine total bilirubin detection by test strip NEGA TIVE NEGATIVE Urine urobilinogen measurement by automated test strip (mass/volume) NORMAL NORMAL Urine leukocyte esterase detection by dipstick 3+ NEGATIVE Automated urine sediment erythrocyte cou nt by microscopy (number/high power field) NONE NRG Automated urine sediment leukocyte count by microscopy (number/high power field) TNTC NRG Bacteria detection in urine sediment by light microsco py LARGE NRG Crystals detection in urine sediment by light microsco py NONE NRG Casts detection in urine sediment by light microscopy NONE NRG Mucus detection in urine sediment by light microscopy NEGATIVE NRG Complete urinalysis with reflex to culture YES NRG Bacterial urine culture - 02/28/19 14:50 Bacterial urine culture [id number] NRG COLONY COUNT >100,000/ML NRG FTX;REPORTABLE SUSCEPTIBILITY REPORTED 03/03 12:35 NRG FREE TEXT ENTRY 2 RML CORRECTED REPORT INDICATES O NLY NRG FREE TEXT ENTRY 3 ONE COLONY MORPHOLOGY PRESENT NRG Dirithromycin susceptibility test by dis k diffusion - 02/28/19 14:50 Gentamicin susceptibility test by minimum inhibitory c oncentration <= NRG Trimethoprim/sulfamethoxazole susceptibi lity test by minimum inhibitoryconcentration <= NRG Levofloxacin susceptibility test by minimum inhibitory concentration <= NRG Ampicillin susceptibility test by minimum inhibitory c oncentration <= NRG Cefazolin susceptibility test by minimum inhibitory co ncentration <= NRG Ceftriaxone susceptibility test by minimum inhibitory concentration <= NRG Ciprofloxacin susceptibility test by minimum inhibitor y concentration <= NRG Meropenem susceptibility test by minimum inhibitory co ncentration <= NRG Nitrofurantoin susceptibility test by mi nimum inhibitory concentration <= NRG Amoxicillin and clavulanate potassium susc BRITTANY <= NRG Microscopic examination by wet preparati on - 02/28/19 14:53 WET PREP RESULTS NUMEROUS RBC'S SEEN NR G Capillary blood glucose measurement by g lucometer (mass/volume) - 02/28/19 16:35 Capillary blood glucose measurement by glucometer (mas s/volume) 289 mg/dL 70-110 Complete blood count (CBC) with automate d white blood cell (WBC) differential - 03/01/19 08:32 Blood leukocytes automated count (number/volume) 8.3 10*3/uL 4.3-11.0 Blood erythrocytes automated count (number/volume) 3.88 10*6/uL 4.35-5.85 Venous blood hemoglobin measurement (mass/volume) 10.8 g/dL 11.5-16.0 Blood hematocrit (volume fraction) 32 % 35-52 Automated erythrocyte mean corpuscular volume 83 [ foz_us] 80-99 Automated erythrocyte mean corpuscular h emoglobin (mass per erythrocyte) 28 pg 25-34 Automated erythrocyte mean corpuscular h emoglobin concentration measurement (mass/volume) 33 g/dL 32-36 Automated erythrocyte distribution width ratio 13. 4 % 10.0- 14.5 Automated blood platelet count (count/volume) 257 10*3/uL 130-400 Automated blood platelet mean volume measurement 9.3 [foz_us] 7.4-10.4 Automated blood neutrophils/100 leukocytes 82 % 42-75 Automated blood lymphocytes/100 leukocytes 13 % 12-44 Blood monocytes/100 leukocytes 4 % 0-12 Automated blood eosinophils/100 leukocytes 1 % 0-10 Automated blood basophils/100 leukocytes 0 % 0-10 Blood neutrophils automated count (number/volume) 6.8 10*3 1.8-7.8 Blood lymphocytes automated count (number/volume) 1.1 10*3 1.0-4.0 Blood monocytes automated count (number/volume) 0. 3 10*3 0.0-1.0 Automated eosinophil count 0.1 10*3/uL 0 .0-0.3 Automated blood basophil count (count/volume) 0.0 10*3/uL 0.0-0.1 Comprehensive metabolic panel - 03/01/19 08:32 Serum or plasma sodium measurement (moles/volume) 137 mmol/L 135-145 Serum or plasma potassium measurement (moles/volume) 4.1 mmol/L 3.6-5.0 Serum or plasma chloride measurement (moles/volume) 100 mmol/L 98-107 Carbon dioxide 25 mmol/L 21-32 Serum or plasma anion gap determination (moles/volume) 12 mmol/L 5-14 Serum or plasma urea nitrogen measurement (mass/volume ) 13 mg/dL 7-18 Serum or plasma creatinine measurement (mass/volume) 0.99 mg/dL 0.60-1.30 Serum or plasma urea nitrogen/creatinine mass ratio 13 NRG Serum or plasma creatinine measurement w ith calculation of estimated glomerular filtration rate 55 NRG Serum or plasma glucose measurement (mass/volume) 374 mg/dL 70-105 Serum or plasma calcium measurement (mass/volume) 8.5 mg/dL 8.5-10.1 Serum or plasma total bilirubin measurement (mass/volu me) 0.8 mg/dL 0.1-1.0 Serum or plasma alkaline phosphatase omar surement (enzymatic activity/volume) 69 U/L 40-136 Serum or plasma aspartate aminotransfera se measurement (enzymatic activity/volume) 13 U/L 5-34 Serum or plasma alanine aminotransferase measurement (enzymatic activity/volume) 6 U/L 0-55 Serum or plasma protein measurement (mass/volume) 6.4 g/dL 6.4-8.2 Serum or plasma albumin measurement (mass/volume) 3.2 g/dL 3.2-4.5 CALCIUM CORRECTED 9.1 mg/dL 8.5-10.1 FRESH FROZEN PLASMA - 03/01/19 08:32 FRESH FROZEN PLASMA PRSMD TRF SD 03/01/19 1048 NRG RED CELLS LEUKO REDUCED AS1 - 03/01/19 0 8:32 RED CELLS LEUKO REDUCED AS1 P RSSD TRFSD 03/01/19 1057 NRG Blood type T Indirect antibody screen pa esteban - 03/01/19 08:32 WRISTBAND NUMBER [id number] NRG ABO+Rh group AP NRG Blood group antibody screen NEGATIVE NR G Capillary blood glucose measurement by g lucometer (mass/volume) - 03/01/19 11:10 Capillary blood glucose measurement by glucometer (mas s/volume) 285 mg/dL 70-110 Complete blood count (CBC) with automate d white blood cell (WBC) differential - 05/18/19 11:50 Blood leukocytes automated count (number/volume) 7.0 10*3/uL 4.3-11.0 Blood erythrocytes automated count (number/volume) 3.50 10*6/uL 4.35-5.85 Venous blood hemoglobin measurement (mass/volume) 10.6 g/dL 11.5-16.0 Blood hematocrit (volume fraction) 32 % 35-52 Automated erythrocyte mean corpuscular volume 91 [ foz_us] 80-99 Automated erythrocyte mean corpuscular h emoglobin (mass per erythrocyte) 30 pg 25-34 Automated erythrocyte mean corpuscular h emoglobin concentration measurement (mass/volume) 33 g/dL 32-36 Automated erythrocyte distribution width ratio 17. 6 % 10.0- 14.5 Automated blood platelet count (count/volume) 185 10*3/uL 130-400 Automated blood platelet mean volume measurement 8.6 [foz_us] 7.4-10.4 Automated blood neutrophils/100 leukocytes 80 % 42-75 Automated blood lymphocytes/100 leukocytes 8 % 12-44 Blood monocytes/100 leukocytes 9 % 0-12 Automated blood eosinophils/100 leukocytes 2 % 0-10 Automated blood basophils/100 leukocytes 0 % 0-10 Blood neutrophils automated count (number/volume) 5.6 10*3 1.8-7.8 Blood lymphocytes automated count (number/volume) 0.6 10*3 1.0-4.0 Blood monocytes automated count (number/volume) 0. 7 10*3 0.0-1.0 Automated eosinophil count 0.2 10*3/uL 0 .0-0.3 Automated blood basophil count (count/volume) 0.0 10*3/uL 0.0-0.1 Fibrin D-dimer FEU measurement in platel et poor plasma (mass/volume) - 05/18/19 11:50 Fibrin D-dimer FEU measurement in platelet poor plasma (mass/volume) 1.90 ug/mL 0.00-0.49 Comprehensive metabolic panel - 05/18/19 11:50 Serum or plasma sodium measurement (moles/volume) 139 mmol/L 135-145 Serum or plasma potassium measurement (moles/volume) 3.2 mmol/L 3.6-5.0 Serum or plasma chloride measurement (moles/volume) 103 mmol/L 98-107 Carbon dioxide 25 mmol/L 21-32 Serum or plasma anion gap determination (moles/volume) 11 mmol/L 5-14 Serum or plasma urea nitrogen measurement (mass/volume ) 10 mg/dL 7-18 Serum or plasma creatinine measurement (mass/volume) 0.64 mg/dL 0.60-1.30 Serum or plasma urea nitrogen/creatinine mass ratio 16 NRG Serum or plasma creatinine measurement w ith calculation of estimated glomerular filtration rate > NRG Serum or plasma glucose measurement (mass/volume) 113 mg/dL 70-105 Serum or plasma calcium measurement (mass/volume) 8.5 mg/dL 8.5-10.1 Serum or plasma total bilirubin measurement (mass/volu me) 0.6 mg/dL 0.1-1.0 Serum or plasma alkaline phosphatase omar surement (enzymatic activity/volume) 61 U/L 40-136 Serum or plasma aspartate aminotransfera se measurement (enzymatic activity/volume) 19 U/L 5-34 Serum or plasma alanine aminotransferase measurement (enzymatic activity/volume) 8 U/L 0-55 Serum or plasma protein measurement (mass/volume) 6.2 g/dL 6.4-8.2 Serum or plasma albumin measurement (mass/volume) 3.3 g/dL 3.2-4.5 CALCIUM CORRECTED 9.1 mg/dL 8.5-10.1 Magnesium - 05/18/19 11:50 Magnesium 1.2 mg/dL 1.6-2.4 THYROID STIMULATING HORMONE - 05/18/19 1 1:50 THYROID STIMULATING HORMONE 1.40 u[iU]/mL 0.35-4.94 Serum or plasma thyroxine (T4) free shawna urement (mass/volume) - 05/18/19 11:50 Serum or plasma thyroxine (T4) free measurement (mass/ volume) 1.17 ng/dL 0.70-1.48 Serum or plasma C reactive protein measu rement (mass/volume) - 05/18/19 11:50 Serum or plasma C reactive protein measurement (mass/v olume) 0.72 mg/dL 0.00-0.50 IRON TEST - 05/18/19 11:50 Serum or plasma iron measurement (mass/volume) 45 % 35-180 VITAMIN B 12 - 05/18/19 11:50 VITAMIN B 12 >2000 190-1100 Complete blood count (CBC) with automate d white blood cell (WBC) differential - 06/04/19 15:35 Blood leukocytes automated count (number/volume) 1.4 10*3/uL 4.3-11.0 Blood erythrocytes automated count (number/volume) 3.11 10*6/uL 4.35-5.85 Venous blood hemoglobin measurement (mass/volume) 9.6 g/dL 11.5-16.0 Blood hematocrit (volume fraction) 29 % 35-52 Automated erythrocyte mean corpuscular volume 93 [ foz_us] 80-99 Automated erythrocyte mean corpuscular h emoglobin (mass per erythrocyte) 31 pg 25-34 Automated erythrocyte mean corpuscular h emoglobin concentration measurement (mass/volume) 33 g/dL 32-36 Automated erythrocyte distribution width ratio 16. 1 % 10.0- 14.5 Automated blood platelet count (count/volume) 169 10*3/uL 130-400 Automated blood platelet mean volume measurement 8.3 [foz_us] 7.4-10.4 Automated blood neutrophils/100 leukocytes 7 % 42-75 Automated blood lymphocytes/100 leukocytes 51 % 12-44 Blood monocytes/100 leukocytes 29 % 0-12 Automated blood eosinophils/100 leukocytes 13 % 0-10 Automated blood basophils/100 leukocytes 1 % 0-10 Blood neutrophils automated count (number/volume) 0.1 10*3 1.8-7.8 Blood lymphocytes automated count (number/volume) 0.7 10*3 1.0-4.0 Blood monocytes automated count (number/volume) 0. 7 10*3 0.0-1.0 Automated eosinophil count 0.2 10*3/uL 0 .0-0.3 Automated blood basophil count (count/volume) 0.0 10*3/uL 0.0-0.1 Fibrin D-dimer FEU measurement in platel et poor plasma (mass/volume) - 06/04/19 15:35 Fibrin D-dimer FEU measurement in platelet poor plasma (mass/volume) 1.43 ug/mL 0.00-0.49 Manual absolute plasma cell count - 05/10 11/25 15:35 Blood monocytes/100 leukocytes 14 % NRG Manual blood segmented neutrophils/100 leukocytes 2 % NRG Blood band neutrophils/100 leukocytes 2 % NRG Manual blood lymphocytes/100 leukocytes 68 % NRG Manual eosinophils/100 leukocytes in nose 14 % NRG Manual blood basophils/100 leukocytes 0 % NRG Blood anisocytosis detection by light microscopy S LIGHT NRG Comprehensive metabolic panel - 06/04/19 15:35 Serum or plasma sodium measurement (moles/volume) 141 mmol/L 135-145 Serum or plasma potassium measurement (moles/volume) 3.4 mmol/L 3.6-5.0 Serum or plasma chloride measurement (moles/volume) 100 mmol/L 98-107 Carbon dioxide 27 mmol/L 21-32 Serum or plasma anion gap determination (moles/volume) 14 mmol/L 5-14 Serum or plasma urea nitrogen measurement (mass/volume ) 14 mg/dL 7-18 Serum or plasma creatinine measurement (mass/volume) 0.57 mg/dL 0.60-1.30 Serum or plasma urea nitrogen/creatinine mass ratio 25 NRG Serum or plasma creatinine measurement w ith calculation of estimated glomerular filtration rate > NRG Serum or plasma glucose measurement (mass/volume) 103 mg/dL 70-105 Serum or plasma calcium measurement (mass/volume) 8.7 mg/dL 8.5-10.1 Serum or plasma total bilirubin measurement (mass/volu me) 0.5 mg/dL 0.1-1.0 Serum or plasma alkaline phosphatase omar surement (enzymatic activity/volume) 58 U/L 40-136 Serum or plasma aspartate aminotransfera se measurement (enzymatic activity/volume) 17 U/L 5-34 Serum or plasma alanine aminotransferase measurement (enzymatic activity/volume) 7 U/L 0-55 Serum or plasma protein measurement (mass/volume) 6.5 g/dL 6.4-8.2 Serum or plasma albumin measurement (mass/volume) 3.2 g/dL 3.2-4.5 CALCIUM CORRECTED 9.3 mg/dL 8.5-10.1 Magnesium - 06/04/19 15:35 Magnesium 1.6 mg/dL 1.6-2.4 TROPONIN I FS - 06/04/19 15:35 TROPONIN I FS < 0.30 <0.30 PROBNP FS - 06/04/19 15:35 PROBNP FS 409.0 pg/mL <75.0 Influenza virus A and B antigen detectio n - 06/04/19 15:48 FLU RESULT NEGATIVE FOR INFLUENZA A AND B ANTIGENS BY [facility] Automated blood complete blood count (he mogram) panel - 06/11/19 12:29 Blood leukocytes automated count (number/volume) 3.3 10*3/uL 4.3-11.0 Blood erythrocytes automated count (number/volume) 3.48 10*6/uL 4.35-5.85 Venous blood hemoglobin measurement (mass/volume) 10.6 g/dL 11.5-16.0 Blood hematocrit (volume fraction) 33 % 35-52 Automated erythrocyte mean corpuscular volume 94 [ foz_us] 80-99 Automated erythrocyte mean corpuscular h emoglobin (mass per erythrocyte) 31 pg 25-34 Automated erythrocyte mean corpuscular h emoglobin concentration measurement (mass/volume) 32 g/dL 32-36 Automated erythrocyte distribution width ratio 15. 5 % 10.0- 14.5 Automated blood platelet count (count/volume) 177 10*3/uL 130-400 Automated blood platelet mean volume measurement 8.0 [foz_us] 7.4-10.4 Comprehensive metabolic panel - 06/11/19 12:29 Serum or plasma sodium measurement (moles/volume) 139 mmol/L 135-145 Serum or plasma potassium measurement (moles/volume) 3.4 mmol/L 3.6-5.0 Serum or plasma chloride measurement (moles/volume) 102 mmol/L 98-107 Carbon dioxide 29 mmol/L 21-32 Serum or plasma anion gap determination (moles/volume) 8 mmol/L 5-14 Serum or plasma urea nitrogen measurement (mass/volume ) 8 mg/dL 7-18 Serum or plasma creatinine measurement (mass/volume) 0.68 mg/dL 0.60-1.30 Serum or plasma urea nitrogen/creatinine mass ratio 12 NRG Serum or plasma creatinine measurement w ith calculation of estimated glomerular filtration rate > NRG Serum or plasma glucose measurement (mass/volume) 94 mg/dL 70-105 Serum or plasma calcium measurement (mass/volume) 8.8 mg/dL 8.5-10.1 Serum or plasma total bilirubin measurement (mass/volu me) 0.8 mg/dL 0.1-1.0 Serum or plasma alkaline phosphatase omar surement (enzymatic activity/volume) 68 U/L 40-136 Serum or plasma aspartate aminotransfera se measurement (enzymatic activity/volume) 16 U/L 5-34 Serum or plasma alanine aminotransferase measurement (enzymatic activity/volume) 9 U/L 0-55 Serum or plasma protein measurement (mass/volume) 6.6 g/dL 6.4-8.2 Serum or plasma albumin measurement (mass/volume) 3.0 g/dL 3.2-4.5 CALCIUM CORRECTED 9.6 mg/dL 8.5-10.1 Magnesium - 06/11/19 12:29 Magnesium 1.4 mg/dL 1.6-2.4 Complete blood count (CBC) with automate d white blood cell (WBC) differential - 06/15/19 11:30 Blood leukocytes automated count (number/volume) 4.0 10*3/uL 4.3-11.0 Blood erythrocytes automated count (number/volume) 3.50 10*6/uL 4.35-5.85 Venous blood hemoglobin measurement (mass/volume) 10.9 g/dL 11.5-16.0 Blood hematocrit (volume fraction) 33 % 35-52 Automated erythrocyte mean corpuscular volume 95 [ foz_us] 80-99 Automated erythrocyte mean corpuscular h emoglobin (mass per erythrocyte) 31 pg 25-34 Automated erythrocyte mean corpuscular h emoglobin concentration measurement (mass/volume) 33 g/dL 32-36 Automated erythrocyte distribution width ratio 15. 7 % 10.0- 14.5 Automated blood platelet count (count/volume) 214 10*3/uL 130-400 Automated blood platelet mean volume measurement 9.9 [foz_us] 7.4-10.4 Automated blood neutrophils/100 leukocytes 80 % 42-75 Automated blood lymphocytes/100 leukocytes 13 % 12-44 Blood monocytes/100 leukocytes 4 % 0-12 Automated blood eosinophils/100 leukocytes 2 % 0-10 Automated blood basophils/100 leukocytes 0 % 0-10 Blood neutrophils automated count (number/volume) 3.2 10*3 1.8-7.8 Blood lymphocytes automated count (number/volume) 0.5 10*3 1.0-4.0 Blood monocytes automated count (number/volume) 0. 2 10*3 0.0-1.0 Automated eosinophil count 0.1 10*3/uL 0 .0-0.3 Automated blood basophil count (count/volume) 0.0 10*3/uL 0.0-0.1 Influenza virus A and B antigen detectio n - 06/15/19 12:00 FLU RESULT NEGATIVE FOR INFLUENZA A AND B ANTIGENS BY [facility] Comprehensive metabolic panel - 06/15/19 12:00 Serum or plasma sodium measurement (moles/volume) 139 mmol/L 135-145 Serum or plasma potassium measurement (moles/volume) 3.8 mmol/L 3.6-5.0 Serum or plasma chloride measurement (moles/volume) 100 mmol/L 98-107 Carbon dioxide 25 mmol/L 21-32 Serum or plasma anion gap determination (moles/volume) 14 mmol/L 5-14 Serum or plasma urea nitrogen measurement (mass/volume ) 12 mg/dL 7-18 Serum or plasma creatinine measurement (mass/volume) 0.59 mg/dL 0.60-1.30 Serum or plasma urea nitrogen/creatinine mass ratio 20 NRG Serum or plasma creatinine measurement w ith calculation of estimated glomerular filtration rate > NRG Serum or plasma glucose measurement (mass/volume) 177 mg/dL 70-105 Serum or plasma calcium measurement (mass/volume) 8.7 mg/dL 8.5-10.1 Serum or plasma total bilirubin measurement (mass/volu me) 0.7 mg/dL 0.1-1.0 Serum or plasma alkaline phosphatase omar surement (enzymatic activity/volume) 70 U/L 40-136 Serum or plasma aspartate aminotransfera se measurement (enzymatic activity/volume) 19 U/L 5-34 Serum or plasma alanine aminotransferase measurement (enzymatic activity/volume) 7 U/L 0-55 Serum or plasma protein measurement (mass/volume) 6.9 g/dL 6.4-8.2 Serum or plasma albumin measurement (mass/volume) 3.1 g/dL 3.2-4.5 CALCIUM CORRECTED 9.4 mg/dL 8.5-10.1 TROPONIN I FS - 06/15/19 12:00 TROPONIN I FS < 0.30 <0.30 Lipase - 06/15/19 12:00 Lipase 5 U/L 8-78 Magnesium - 06/15/19 12:00 Magnesium 1.5 mg/dL 1.6-2.4 Blood CBC with ordered manual differenti al panel - 06/25/19 12:14 Blood leukocytes automated count (number/volume) 4.1 10*3/uL 4.3-11.0 Blood erythrocytes automated count (number/volume) 3.55 10*6/uL 4.35-5.85 Venous blood hemoglobin measurement (mass/volume) 11.1 g/dL 11.5-16.0 Blood hematocrit (volume fraction) 34 % 35-52 Automated erythrocyte mean corpuscular volume 96 [ foz_us] 80-99 Automated erythrocyte mean corpuscular h emoglobin (mass per erythrocyte) 31 pg 25-34 Automated erythrocyte mean corpuscular h emoglobin concentration measurement (mass/volume) 33 g/dL 32-36 Automated erythrocyte distribution width ratio 15. 2 % 10.0- 14.5 Automated blood platelet count (count/volume) 184 10*3/uL 130-400 Automated blood platelet mean volume measurement 8.6 [foz_us] 7.4-10.4 Automated blood neutrophils/100 leukocytes 73 % 42-75 Automated blood lymphocytes/100 leukocytes 17 % 12-44 Blood monocytes/100 leukocytes 6 % NRG Automated blood eosinophils/100 leukocytes 4 % 0-10 Automated blood basophils/100 leukocytes 0 % 0-10 Blood neutrophils automated count (number/volume) 3.0 10*3 1.8-7.8 Blood lymphocytes automated count (number/volume) 0.7 10*3 1.0-4.0 Blood monocytes automated count (number/volume) 0. 3 10*3 0.0-1.0 Automated eosinophil count 0.2 10*3/uL 0 .0-0.3 Automated blood basophil count (count/volume) 0.0 10*3/uL 0.0-0.1 Manual blood segmented neutrophils/100 leukocytes 67 % NRG Blood band neutrophils/100 leukocytes 3 % NRG Manual blood lymphocytes/100 leukocytes 21 % NRG Manual eosinophils/100 leukocytes in nose 3 % NRG Comprehensive metabolic panel - 06/25/19 12:14 Serum or plasma sodium measurement (moles/volume) 138 mmol/L 135-145 Serum or plasma potassium measurement (moles/volume) 4.0 mmol/L 3.6-5.0 Serum or plasma chloride measurement (moles/volume) 101 mmol/L 98-107 Carbon dioxide 28 mmol/L 21-32 Serum or plasma anion gap determination (moles/volume) 9 mmol/L 5-14 Serum or plasma urea nitrogen measurement (mass/volume ) 14 mg/dL 7-18 Serum or plasma creatinine measurement (mass/volume) 0.70 mg/dL 0.60-1.30 Serum or plasma urea nitrogen/creatinine mass ratio 20 NRG Serum or plasma creatinine measurement w ith calculation of estimated glomerular filtration rate > NRG Serum or plasma glucose measurement (mass/volume) 202 mg/dL 70-105 Serum or plasma calcium measurement (mass/volume) 8.5 mg/dL 8.5-10.1 Serum or plasma total bilirubin measurement (mass/volu me) 0.6 mg/dL 0.1-1.0 Serum or plasma alkaline phosphatase omar surement (enzymatic activity/volume) 72 U/L 40-136 Serum or plasma aspartate aminotransfera se measurement (enzymatic activity/volume) 21 U/L 5-34 Serum or plasma alanine aminotransferase measurement (enzymatic activity/volume) 10 U/L 0-55 Serum or plasma protein measurement (mass/volume) 7.0 g/dL 6.4-8.2 Serum or plasma albumin measurement (mass/volume) 2.9 g/dL 3.2-4.5 CALCIUM CORRECTED 9.4 mg/dL 8.5-10.1 Magnesium - 06/25/19 12:14 Magnesium 1.4 mg/dL 1.6-2.4 Complete urinalysis with reflex to cultu re - 06/25/19 13:00 Urine color determination YELLOW NRG Urine clarity determination SL CLOUDY N RG Urine pH measurement by test strip 5.5 5-9 Specific gravity of urine by test strip >= 1.016-1.022 Urine protein assay by test strip, semi-quantitative 2+ NEGATIVE Urine glucose detection by automated test strip NE GATIVE NEGATIVE Erythrocytes detection in urine sediment by light micr oscopy 3+ NEGATIVE Urine ketones detection by automated test strip 1+ NEGATIVE Urine nitrite detection by test strip NEGATIVE NEGATIVE Urine total bilirubin detection by test strip 1+ NEGATIVE Urine urobilinogen measurement by automated test strip (mass/volume) 0.2 mg/dL < = 1.0 Urine leukocyte esterase detection by dipstick 2+ NEGATIVE Automated urine sediment erythrocyte cou nt by microscopy (number/high power field) [HPF] NRG Automated urine sediment leukocyte count by microscopy (number/high power field) > [HPF] NRG Bacteria detection in urine sediment by light microsco py FEW NRG Squamous epithelial cells detection in u rine sediment by light microscopy NONE NRG Crystals detection in urine sediment by light microsco py NONE NRG Casts detection in urine sediment by light microscopy NONE NRG Mucus detection in urine sediment by light microscopy NEGATIVE NRG Complete urinalysis with reflex to culture YES NRG Bacterial urine culture - 06/25/19 13:00 Bacterial urine culture 3 OR MORE NRG COLONY COUNT 20,000 CFU/ML NRG FTX;REPORTABLE SUGGESTING PROBABLE COLLECTION NRG FREE TEXT ENTRY 2 CONTAMINATION WITH SKIN MELISSA NR FREE TEXT ENTRY 3 NO SUSCEPTIBILTIY PERFORMED [facility] Automated blood complete blood count (he mogram) panel - 07/16/19 10:55 Blood leukocytes automated count (number/volume) 4.1 10*3/uL 4.3-11.0 Blood erythrocytes automated count (number/volume) 3.87 10*6/uL 4.35-5.85 Venous blood hemoglobin measurement (mass/volume) 11.8 g/dL 11.5-16.0 Blood hematocrit (volume fraction) 37 % 35-52 Automated erythrocyte mean corpuscular volume 94 [ foz_us] 80-99 Automated erythrocyte mean corpuscular h emoglobin (mass per erythrocyte) 31 pg 25-34 Automated erythrocyte mean corpuscular h emoglobin concentration measurement (mass/volume) 32 g/dL 32-36 Automated erythrocyte distribution width ratio 14. 5 % 10.0- 14.5 Automated blood platelet count (count/volume) 177 10*3/uL 130-400 Automated blood platelet mean volume measurement 8.3 [foz_us] 7.4-10.4 Comprehensive metabolic panel - 07/16/19 10:55 Serum or plasma sodium measurement (moles/volume) 138 mmol/L 135-145 Serum or plasma potassium measurement (moles/volume) 3.4 mmol/L 3.6-5.0 Serum or plasma chloride measurement (moles/volume) 99 mmol/L 98-107 Carbon dioxide 29 mmol/L 21-32 Serum or plasma anion gap determination (moles/volume) 10 mmol/L 5-14 Serum or plasma urea nitrogen measurement (mass/volume ) 12 mg/dL 7-18 Serum or plasma creatinine measurement (mass/volume) 0.75 mg/dL 0.60-1.30 Serum or plasma urea nitrogen/creatinine mass ratio 16 NRG Serum or plasma creatinine measurement w ith calculation of estimated glomerular filtration rate > NRG Serum or plasma glucose measurement (mass/volume) 191 mg/dL 70-105 Serum or plasma calcium measurement (mass/volume) 9.3 mg/dL 8.5-10.1 Serum or plasma total bilirubin measurement (mass/volu me) 0.8 mg/dL 0.1-1.0 Serum or plasma alkaline phosphatase omar surement (enzymatic activity/volume) 83 U/L 40-136 Serum or plasma aspartate aminotransfera se measurement (enzymatic activity/volume) 19 U/L 5-34 Serum or plasma alanine aminotransferase measurement (enzymatic activity/volume) 7 U/L 0-55 Serum or plasma protein measurement (mass/volume) 7.7 g/dL 6.4-8.2 Serum or plasma albumin measurement (mass/volume) 3.3 g/dL 3.2-4.5 CALCIUM CORRECTED 9.9 mg/dL 8.5-10.1 Magnesium - 07/16/19 10:55 Magnesium 1.5 mg/dL 1.6-2.4 Complete urinalysis with reflex to cultu re - 07/16/19 12:15 Urine color determination YELLOW NRG Urine clarity determination CLEAR NR G Urine pH measurement by test strip 5.5 5-9 Specific gravity of urine by test strip >= 1.016-1.022 Urine protein assay by test strip, semi-quantitative TRACE NEGATIVE Urine glucose detection by automated test strip NE GATIVE NEGATIVE Erythrocytes detection in urine sediment by light micr oscopy 1+ NEGATIVE Urine ketones detection by automated test strip 1+ NEGATIVE Urine nitrite detection by test strip NEGATIVE NEGATIVE Urine total bilirubin detection by test strip NEGA TIVE NEGATIVE Urine urobilinogen measurement by automated test strip (mass/volume) 1.0 mg/dL < = 1.0 Urine leukocyte esterase detection by dipstick 1+ NEGATIVE Automated urine sediment erythrocyte cou nt by microscopy (number/high power field) [HPF] NRG Automated urine sediment leukocyte count by microscopy (number/high power field) [HPF] NRG Bacteria detection in urine sediment by light microsco py TRACE NRG Squamous epithelial cells detection in u rine sediment by light microscopy RARE NRG Crystals detection in urine sediment by light microsco py PRESENT NRG Casts detection in urine sediment by light microscopy NONE NRG Mucus detection in urine sediment by light microscopy LARGE NRG Complete urinalysis with reflex to culture YES NRG Amorphous sediment detection in urine sediment by ligh t microscopy RARE HERMINIO URATES NRG Calcium oxalate crystals detection in ur ine sediment by light microscopy RARE NRG Bacterial urine culture - 07/16/19 12:15 Bacterial urine culture NG NRG Sputum Gram stain - 07/18/19 16:00 Sputum Gram stain MIXED BACTERIAL MELISSA NRG Bacterial sputum culture - 07/18/19 16:0 0 QUANTITY OF GROWTH . NRG Bacterial sputum culture USUAL RESP NRG Complete blood count (CBC) with automate d white blood cell (WBC) differential - 07/21/19 17:50 Blood leukocytes automated count (number/volume) 4.1 10*3/uL 4.3-11.0 Blood erythrocytes automated count (number/volume) 3.67 10*6/uL 4.35-5.85 Venous blood hemoglobin measurement (mass/volume) 11.3 g/dL 11.5-16.0 Blood hematocrit (volume fraction) 34 % 35-52 Automated erythrocyte mean corpuscular volume 92 [ foz_us] 80-99 Automated erythrocyte mean corpuscular h emoglobin (mass per erythrocyte) 31 pg 25-34 Automated erythrocyte mean corpuscular h emoglobin concentration measurement (mass/volume) 34 g/dL 32-36 Automated erythrocyte distribution width ratio 14. 1 % 10.0- 14.5 Automated blood platelet count (count/volume) 219 10*3/uL 130-400 Automated blood platelet mean volume measurement 8.5 [foz_us] 7.4-10.4 Automated blood neutrophils/100 leukocytes 76 % 42-75 Automated blood lymphocytes/100 leukocytes 12 % 12-44 Blood monocytes/100 leukocytes 8 % 0-12 Automated blood eosinophils/100 leukocytes 4 % 0-10 Automated blood basophils/100 leukocytes 0 % 0-10 Blood neutrophils automated count (number/volume) 3.1 10*3 1.8-7.8 Blood lymphocytes automated count (number/volume) 0.5 10*3 1.0-4.0 Blood monocytes automated count (number/volume) 0. 3 10*3 0.0-1.0 Automated eosinophil count 0.2 10*3/uL 0 .0-0.3 Automated blood basophil count (count/volume) 0.1 10*3/uL 0.0-0.1 Comprehensive metabolic panel - 07/21/19 17:50 Serum or plasma sodium measurement (moles/volume) 140 mmol/L 135-145 Serum or plasma potassium measurement (moles/volume) 3.6 mmol/L 3.6-5.0 Serum or plasma chloride measurement (moles/volume) 101 mmol/L 98-107 Carbon dioxide 28 mmol/L 21-32 Serum or plasma anion gap determination (moles/volume) 11 mmol/L 5-14 Serum or plasma urea nitrogen measurement (mass/volume ) 14 mg/dL 7-18 Serum or plasma creatinine measurement (mass/volume) 0.62 mg/dL 0.60-1.30 Serum or plasma urea nitrogen/creatinine mass ratio 23 NRG Serum or plasma creatinine measurement w ith calculation of estimated glomerular filtration rate > NRG Serum or plasma glucose measurement (mass/volume) 175 mg/dL 70-105 Serum or plasma calcium measurement (mass/volume) 9.2 mg/dL 8.5-10.1 Serum or plasma total bilirubin measurement (mass/volu me) 0.6 mg/dL 0.1-1.0 Serum or plasma alkaline phosphatase omar surement (enzymatic activity/volume) 83 U/L 40-136 Serum or plasma aspartate aminotransfera se measurement (enzymatic activity/volume) 16 U/L 5-34 Serum or plasma alanine aminotransferase measurement (enzymatic activity/volume) 5 U/L 0-55 Serum or plasma protein measurement (mass/volume) 7.2 g/dL 6.4-8.2 Serum or plasma albumin measurement (mass/volume) 3.0 g/dL 3.2-4.5 CALCIUM CORRECTED 10.0 mg/dL 8.5-10.1 Encounters ACCT No. Visit Date/Time Discharge Status Pt. Type Provider Facility Loc./Unit Complaint [id number] 08/20/2019 08:00:00 23:59:59 CLS Preadmit MATHEW GILMORE APRN [facility] RAD LEG SWELLING [id number] 07/17/2019 10:27:00 00:01:00 DIS Outpatient SARA MONCADA [facility] ONC [id number] 07/27/2019 11:00:00 23:59:59 CLS Outpatient OBINNA OSORIOP [facility] SDC DEHYDRATION,CHR ONIC LOW MAG [id number] 07/23/2019 13:45:00 23:59:59 CLS Outpatient CATALINA CHEN PROVIDER RELATIONS CONSULTANT [facility] RAD DYSPNEA,CERVICA L CARCINOMA [id number] 07/18/2019 16:23:00 23:59:59 CLS Outpatient RUSSELL OSORIO DO [facility] LAB FS COUGH [id number] 07/18/2019 08:00:00 23:59:59 CLS Preadmit ABEBA SALAMANCA DO [facility] HISTORY OF CANCER [id number] 07/17/2019 12:32:00 23:59:59 CLS Outpatient CATALINA CHEN [facility] RAD [id number] 07/12/2019 11:30:00 23:59:59 CLS Outpatient ABEBA SALAMANCA DO [facility] PREOP HISTORY OF CANCER [id number] 06/28/2019 14:13:00 23:59:59 CLS Outpatient OBINNA OSORIO [facility] DEHYDRATION,CHR ONS LOW MG [id number] 06/25/2019 11:44:00 14:40:00 DIS Outpatient OBINNA OSORIO [facility] GASTROENTITIS,DEHYDRATION,UTI [id number] 06/15/2019 11:14:00 12:59:00 DIS Emergency ANGE MENDEZ DO [facility] ER FS VOMITING; DIARRHEA; HYPERGLYCEMIA; SOB [id number] 06/11/2019 14:25:00 23:59:59 CLS Outpatient OBINNA OSORIO [facility] RAD CHRONIC AND OTH ER PULMONARY MANIFESTATIONS DUE TO [id number] 06/11/2019 10:50:00 23:59:59 CLS Preadmit MARIANNE QUIROS MD [facility] WOUNDCARE [id number] 06/11/2019 12:10:00 14:55:00 DIS Outpatient OBINNA OSORIO [facility] LOW MG,DEHYDRAT ION [id number] 06/04/2019 15:20:00 18:44:00 DIS Emergency ROVENSTBINDU REYES DO L [facility] ER FS SOA [id number] 05/28/2019 14:01:00 23:59:59 CLS Outpatient MARIANNE QUIROS MD [facility] WOUNDCARE [id number] 05/24/2019 12:56:00 16:10:00 DIS Outpatient OBINNA OSORIO [facility] DEHYDRATION,LOW MAGNESIUM [id number] 05/18/2019 11:32:00 15:50:00 DIS Outpatient OBINNA OSORIO [facility] TYPE 2 DIABETES,DEHYDRATION,LOW MAGNESIUM [id number] 03/01/2019 08:10:00 11:36:00 DIS Emergency KWASI PEREZ MD [facility] ER VAGINAL BLEEDING [id number] 02/28/2019 11:58:00 23:59:59 CLS Outpatient SHIRA GALVAN [facility] RAD POSTMENOPAUSAL BLEEDING [id number] 02/28/2019 13:56:00 17:27:00 DIS Emergency KWASI PEREZ MD [facility] ER ABNORMAL US [id number] 07/21/2019 18:10:00 Document Registration
[2019-09-04 12:45] VITALS: BP_SYST 116; BP_SYST 73; BP_SYST 99; BP_DIAS 42; BP_DIAS 59; BP_DIAS 61
[2019-09-04] MEDS ORDERED: NS IV 1000 ML 1,000 ML IV STA (13:01)
[2019-09-04 13:06] LABS: BASOPHILS % (AUTO) 0 % (0-10); EOSINOPHILS % (AUTO) 2 % (0-10); HEMATOCRIT 34 % (35-52); HEMOGLOBIN 11.3 G/DL (11.5-16.0); LYMPHOCYTES % (AUTO) 15 % (12-44); MEAN CORPUSCULAR HEMOGLOBIN 31 PG (25-34); MEAN CORPUSCULAR HGB CONC 33 G/DL (32-36); MEAN CORPUSCULAR VOLUME 92 FL (80-99); MEAN PLATELET VOLUME 8.7 FL (7.4-10.4); MONOCYTES % (AUTO) 7 % (0-12); NEUTROPHILS % (AUTO) 76 % (42-75); PLATELET COUNT 196 10^3/uL (130-400); RED CELL DISTRIBUTION WIDTH 14.5 % (10.0-14.5); WHITE BLOOD COUNT 3.8 10^3/uL (4.3-11.0)
[2019-09-04 13:07] LABS: EOSINOPHILS # (AUTO) 0.1 10^3/uL (0.0-0.3); LYMPHOCYTES # (AUTO) 0.6 X 10^3 (1.0-4.0); MONOCYTES # (AUTO) 0.3 X 10^3 (0.0-1.0); NEUTROPHILS # (AUTO) 2.9 X 10^3 (1.8-7.8)
[2019-09-04 13:19] LABS: PROTHROMBIN TIME PATIENT 13.6 SEC (12.2-14.7)
--- NOTE | 2019-09-04 13:20 | Diagnostic Imaging Report ---
EXAMINATION: CHEST 1 VIEW AP/PA ONLY. INDICATION: Near syncope, dizziness. COMPARISON: 07/17/2019. FINDINGS: Stable hyperaerated lung volume. Visualized lungs are clear. No pleural effusion or pneumothorax. Borderline enlargement of the cardiac silhouette is unchanged. Mediastinal contours remain normal. IMPRESSION: No acute cardiopulmonary process by portable radiography. Dictated by: Dictated on workstation # [id number]
--- NOTE | 2019-09-04 13:24 | Diagnostic Imaging Report ---
PROCEDURE: CT head without contrast. TECHNIQUE: Multiple contiguous axial images were obtained through the brain without the use of intravenous contrast. Auto Exposure Controls were utilized during the CT exam to meet ALARA standards for radiation dose reduction. INDICATION: Dizziness. COMPARISON: No prior studies are available for comparison. FINDINGS: The ventricles and sulci are appropriate for the patient's age. No sulcal effacement or midline shift is identified. There is a hyperdense lesion along the left cerebellar convexity measuring 2.0 x 1.4 cm. It is most consistent with a partially calcified lesion such as meningioma. There is no midline shift. No acute intra-axial or extra-axial hemorrhage is detected. The cisterns are patent. The visualized paranasal sinuses are clear. IMPRESSION: 1. Findings are most consistent with a meningioma along the left cerebellar hemisphere. MRI of the brain with and without IV contrast on a nonemergent basis could be performed for further characterization. 2. No acute intracranial process is detected. Dictated by: Dictated on workstation # [id number]
[2019-09-04 13:32] LABS: CARBON DIOXIDE 27 MMOL/L (21-32); CHLORIDE 101 MMOL/L (98-107); POTASSIUM 3.5 MMOL/L (3.6-5.0); SODIUM 142 MMOL/L (135-145)
[2019-09-04 13:33] LABS: ALANINE AMINOTRANSFERASE 5 U/L (0-55); ALBUMIN 3.1 GM/DL (3.2-4.5); ALKALINE PHOSPHATASE 61 U/L (40-136); BILIRUBIN,TOTAL 0.7 MG/DL (0.1-1.0); BUN/CREATININE RATIO 23; CALCIUM 9.5 MG/DL (8.5-10.1); CREATININE SERUM 0.71 MG/DL (0.60-1.30); GFR ESTIMATED > 60; GLUCOSE 131 MG/DL (70-105); TOTAL PROTEIN 6.6 GM/DL (6.4-8.2)
[2019-09-04 15:17] LABS: BILIRUBIN,URINE 1+ (NEGATIVE); CLARITY,URINE CLEAR; COLOR,URINE YELLOW; GLUCOSE, URINE (UA) NEGATIVE (NEGATIVE); KETONES,URINE 1+ (NEGATIVE); LEUKOCYTE ESTERASE ,URINE 1+ (NEGATIVE); NITRITE,URINE NEGATIVE (NEGATIVE); PROTEIN,URINE TRACE (NEGATIVE); WBC,URINE 25-50 /HPF
[2019-09-04 15:18] LABS: BACTERIA,URINE FEW /HPF; CALCIUM OXALATE CRYSTALS,UR FEW /LPF
--- OUTSIDE RECORDS SUMMARY | 2019-09-04 15:27 | XMS REPORT | Continuity of Care Document ---
Author Organization Unknown Address Unknown Phone Unavailable Allergies Active Description Code Type Severity Reaction Onset Reported/Identified Relationship to Patient Clinical Status Yes No Allergy Information Available [id number] Drug Allergy Unknown N/A 019 Yes ciprofloxacin [id number] Tramaine g Allergy Severe BURNING SENSATI 07/12/2019 Yes Penicillins [id number] Drug Aller gy Severe SOA 07/12/2019 Yes bacitracin [id number] Drug Allerg y Unknown N/A 07/12/2019 Yes Sulfa (Sulfonamide Antibiotics) [id number] Drug Allergy Unknown N/A 020 Medications [...] KWASI PEREZ MD Ot Z01.411 ENCNTR FOR PERFECT BIND MACHINE OPERATOR EXAM (GENERAL) (ROUTINE) 02/28/2019 KWASI PEREZ [...] SHIRA GALVANP Ot Z01.4 11 ENCNTR FOR PERFECT BIND MACHINE OPERATOR EXAM (GENERAL) (ROUTINE) 03/05/2019 KWASI PEREZ [...] RENAL AND URETERAL C 03/06/2019 SHIRA GALVAN FISHERMAN HELPER Ot N88.8 OTHER SPECIFIED NONINFLAMMATORY DISORDER 03/06/2019 SHIRA GALVANP Ot N95.0 POSTMENOPAUSAL BLEEDING 03/06/2019 SHIRA GALVAN FISHERMAN HELPER Ot R59.0 LOCALIZED ENLARGED LYMPH NODES 03/06/2019 SHIRA GALVANP Ot Z01.4 11 ENCNTR FOR PERFECT BIND MACHINE OPERATOR EXAM (GENERAL) (ROUTINE) 03/07/2019 KWASI PEREZ [...] KWASI PEREZ MD Ot Z01.411 ENCNTR FOR PERFECT BIND MACHINE OPERATOR EXAM (GENERAL) (ROUTINE) 03/20/2019 KWASI PEREZ [...] 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 OR AB 03/21/2019 SHIRA GALVAN FISHERMAN HELPER Ot N13.2 HYDRONEPHROSIS WITH RENAL AND URETERAL C 03/21/2019 SHIRA GALVANP Ot N88.8 OTHER SPECIFIED NONINFLAMMATORY DISORDER 03/21/2019 COLE SHIRARikki CRAFTP Ot N95.0 POSTMENOPAUSAL BLEEDING 03/21/2019 SHIRA GALVAN Shruthi FISHERMAN HELPER Ot R59.0 LOCALIZED ENLARGED LYMPH NODES 03/21/2019 COLE SHIRA Shruthi FISHERMAN HELPER Ot Z01.4 11 ENCNTR FOR PERFECT BIND MACHINE OPERATOR EXAM (GENERAL) (ROUTINE) 03/29/2019 KWASI PEREZ MD Ot I10 ESSENTIAL (PRIMARY) HYPERTENSION 03/29/2019 KWASI PEREZ MD Ot I77. 9 DISORDER OF ARTERIES AND ARTERIOLES, UNS 03/29/2019 KWASI PEREZ MD Ot K57. 3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 03/29/2019 KWASI PEREZ MD Ot N13. 2 HYDRONEPHROSIS WITH RENAL AND URETERAL C 03/29/2019 KWASI PEREZ MD Ot N39. 0 URINARY TRACT INFECTION, SITE NOT SPECIF 03/29/2019 KWASI PEREZ MD Ot N88. 8 OTHER SPECIFIED NONINFLAMMATORY DISORDER 03/29/2019 KWASI PEREZ MD Ot N95. 0 POSTMENOPAUSAL BLEEDING 03/29/2019 KWASI PEREZ MD Ot R59. 0 LOCALIZED ENLARGED LYMPH NODES 03/29/2019 KWASI PEREZ MD Ot Z01.411 ENCNTR FOR PERFECT BIND MACHINE OPERATOR EXAM (GENERAL) (ROUTINE) 03/29/2019 KWASI PEREZ [...] OF OTHER ORGANS 05/18/2019 OSORIOLIYA FRIASRICIA L FISHERMAN HELPER Ot E11.69 TYPE 2 DIABETES MELLITUS WITH OTHER SPEC 05/18/2019 OSORIO, OBINNA L FISHERMAN HELPER Ot E11.69 TYPE 2 DIABETES MELLITUS WITH OTHER SPEC 05/18/2019 OSORIO, OBINNA L FISHERMAN HELPER Ot D64.89 OTHER SPECIFIED ANEMIAS 05/18/2019 LIYA OSORIORICIA L FISHERMAN HELPER Ot E11.69 TYPE 2 DIABETES MELLITUS WITH OTHER SPEC 05/18/2019 LIYA OSORIORICIA L FISHERMAN HELPER Ot E83.42 HYPOMAGNESEMIA 05/18/2019 LIYA OSORIORICIA L FISHERMAN HELPER Ot E86.0 DEHYDRATION 05/18/2019 LIYA OSORIORICIA L FISHERMAN HELPER Ot R06.09 OTHER FORMS OF DYSPNEA 05/18/2019 DEVON OBINNA L FISHERMAN HELPER Ot E11.69 TYPE 2 DIABETES MELLITUS WITH OTHER SPEC 05/22/2019 SHIRA GALVAN FISHERMAN HELPER Ot K57.3 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 05/22/2019 SHIRA GALVAN FISHERMAN HELPER Ot N13.2 HYDRONEPHROSIS WITH RENAL AND URETERAL C 05/22/2019 SHIRA GALVAN FISHERMAN HELPER Ot N88.8 OTHER SPECIFIED NONINFLAMMATORY DISORDER 05/22/2019 SHIRA GALVAN FISHERMAN HELPER Ot N95.0 POSTMENOPAUSAL BLEEDING 05/22/2019 SHIRA GALVAN FISHERMAN HELPER Ot R59.0 LOCALIZED ENLARGED LYMPH NODES 05/22/2019 SHIRA GALVAN FISHERMAN HELPER Ot Z01.4 11 ENCNTR FOR PERFECT BIND MACHINE OPERATOR EXAM (GENERAL) (ROUTINE) 05/24/2019 OBINNA OSORIO L FISHERMAN HELPER Ot E83.42 HYPOMAGNESEMIA 05/24/2019 LIYA OSORIORICIA L FISHERMAN HELPER Ot E86.0 DEHYDRATION 05/24/2019 LIYA OSORIORICIA L FISHERMAN HELPER Ot Z88.0 ALLERGY STATUS TO PENICILLIN 05/24/2019 LIYA OSORIORICIA L FISHERMAN HELPER Ot Z88.2 ALLERGY STATUS TO SULFONAMIDES STATUS 05/26/2019 OSORIO, OBINNA L FISHERMAN HELPER Ot E83.42 HYPOMAGNESEMIA 05/26/2019 OSORIO, OBINNA L FISHERMAN HELPER Ot E86.0 DEHYDRATION 05/26/2019 OSORIO, OBINNA L FISHERMAN HELPER Ot Z88.0 ALLERGY STATUS TO PENICILLIN 05/26/2019 OSORIO, OBINNA L FISHERMAN HELPER Ot Z88.2 ALLERGY STATUS TO SULFONAMIDES STATUS 05/28/2019 OSORIO, OBINNA L FISHERMAN HELPER Ot E83.42 HYPOMAGNESEMIA 05/28/2019 OSORIO, OBINNA L FISHERMAN HELPER Ot E86.0 DEHYDRATION 05/28/2019 OSORIO, OBINNA L FISHERMAN HELPER Ot Z88.0 ALLERGY STATUS TO PENICILLIN 05/28/2019 OSORIO, OBINNA L FISHERMAN HELPER Ot Z88.2 ALLERGY STATUS TO SULFONAMIDES STATUS 05/30/2019 ISHAAN MENDEZ, MARIANNE Cunningham Ot D68.9 COAGULATION DEFECT, UNSPECIFIED 05/30/2019 ISHAAN MEDNEZ, MARIANNE Cunningham Ot I 96 GANGRENE, NOT [...] TO SULFONAMIDES STATUS 06/06/2019 ROVENSTINE DO, BINDU Keshav Ot Z90.49 ACQUIRED ABSENCE OF OTHER SPECIFIED PART 06/06/2019 ROVENSTINE DO, BINDU Keshav Ot Z90.89 ACQUIRED ABSENCE OF OTHER ORGANS 06/06/2019 ROVENSTINE DO, BINDU Keshav Ot Z92.21 PERSONAL HISTORY OF ANTINEOPLASTIC CHEMO 06/11/2019 OBINNA OSORIO FISHERMAN HELPER Ot E83.42 HYPOMAGNESEMIA 06/11/2019 OBINNA OSORIO FISHERMAN HELPER Ot E86.0 DEHYDRATION 06/11/2019 OBINNA OSORIO FISHERMAN HELPER Ot J70.1 CHRONIC AND OTHER PULMONARY MANIFESTATIO 06/11/2019 OBINNA OSORIO FISHERMAN HELPER Ot J90 PLEURAL EFFUSION, NOT ELSEWHERE CLASSIFI 06/12/2019 OBINNA OSORIO FISHERMAN HELPER Ot J70.1 CHRONIC AND OTHER PULMONARY MANIFESTATIO 06/12/2019 OBINNA OSORIO FISHERMAN HELPER Ot J90 PLEURAL EFFUSION, NOT ELSEWHERE CLASSIFI 06/12/2019 OBINNA OSORIO FISHERMAN HELPER Ot E83.42 HYPOMAGNESEMIA 06/12/2019 OBINNA OSORIO FISHERMAN HELPER Ot E86.0 DEHYDRATION 06/15/2019 MENDEZ DO, ANGE [...] TO OTH DRUG/MEDS/BIOL SUB 06/17/2019 OBINNA OSORIO FISHERMAN HELPER Ot E83.42 HYPOMAGNESEMIA 06/17/2019 OBINNA OSORIO FISHERMAN HELPER Ot E86.0 DEHYDRATION 06/19/2019 MENDEZ DO, ANGE [...] OTH DRUG/MEDS/BIOL SUB 06/25/2019 WIL OSORIOIA L FISHERMAN HELPER Ot E83.42 HYPOMAGNESEMIA 06/25/2019 OSORIO, OBINNA L FISHERMAN HELPER Ot E86.0 DEHYDRATION 06/25/2019 OSORIO, OBINNA L FISHERMAN HELPER Ot E87.6 HYPOKALEMIA 06/25/2019 OSORIO, OBINNA L FISHERMAN HELPER Ot K52.9 NONINFECTIVE GASTROENTERITIS AND COLITIS 06/25/2019 OSORIO, OBINNA L FISHERMAN HELPER Ot N39.0 URINARY TRACT INFECTION, SITE NOT SPECIF 06/25/2019 OSORIO, OBINNA L FISHERMAN HELPER Ot R68.89 OTHER GENERAL SYMPTOMS AND SIGNS 06/25/2019 DEVON OBINNA L FISHERMAN HELPER Ot R68.89 OTHER GENERAL SYMPTOMS AND SIGNS 06/26/2019 ISHAAN MENDEZ, MARIANNE Cunningham Ot D68.9 COAGULATION DEFECT, UNSPECIFIED 06/26/2019 ISHAAN MENDEZ, MARIANNE Cunningham Ot I 96 GANGRENE, NOT ELSEWHERE CLASSIFIED 06/26/2019 ISHAAN MENDEZ, MARIANNE Cunningham Ot 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, STAGE 3 06/26/2019 ISHAAN MENDEZ, MARIANNE Cunningham Ot N39.0 URINARY TRACT INFECTION, SITE NOT SPECIF 06/26/2019 LIYA OSORIORICIA L FISHERMAN HELPER Ot E83.42 HYPOMAGNESEMIA 06/26/2019 DEVON OBINNA L FISHERMAN HELPER Ot E86.0 DEHYDRATION 06/26/2019 DEVON OBINNA L FISHERMAN HELPER Ot E87.6 HYPOKALEMIA 06/26/2019 DEVON OBINNA L FISHERMAN HELPER Ot K52.9 NONINFECTIVE GASTROENTERITIS AND COLITIS 06/26/2019 DEVON OBINNA L FISHERMAN HELPER Ot N39.0 URINARY TRACT INFECTION, SITE NOT SPECIF 06/26/2019 OSORIO, OBINNA L FISHERMAN HELPER Ot R68.89 OTHER GENERAL SYMPTOMS AND SIGNS 06/28/2019 DEVON OBINNA L FISHERMAN HELPER Ot E83.42 HYPOMAGNESEMIA 06/28/2019 OSORIO, OBINNA L FISHERMAN HELPER Ot E86.0 DEHYDRATION 06/28/2019 DEVON OBINNA L FISHERMAN HELPER Ot J70.1 CHRONIC AND OTHER PULMONARY MANIFESTATIO 06/28/2019 DEVON OBINNA L FISHERMAN HELPER Ot J90 PLEURAL EFFUSION, NOT ELSEWHERE CLASSIFI 06/29/2019 DEVON OBINNA L FISHERMAN HELPER Ot E83.42 HYPOMAGNESEMIA 06/29/2019 OSORIO, OBINNA L FISHERMAN HELPER Ot E86.0 DEHYDRATION 07/03/2019 OSORIO, OBINNA L FISHERMAN HELPER Ot E83.42 HYPOMAGNESEMIA 07/03/2019 OSORIO, OBINNA L FISHERMAN HELPER Ot E86.0 DEHYDRATION 07/03/2019 CORALSARA KIM Lashell Ot 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, UNSP 07/12/2019 DELSCRIBNER DO, ABEBA B Ot Z01.8 18 ENCOUNTER FOR OTHER PREPROCEDURAL EXAMIN 07/12/2019 DELSCRIBNER DO, ABEBA B Ot Z01.8 18 ENCOUNTER FOR OTHER PREPROCEDURAL EXAMIN 07/12/2019 [facility], ABEBA B Ot Z01.8 18 ENCOUNTER FOR OTHER PREPROCEDURAL EXAMIN 07/13/2019 [facility] DO, ABEBA B Ot Z01.8 18 ENCOUNTER FOR OTHER PREPROCEDURAL EXAMIN 07/13/2019 DEVON, OBINNA L FISHERMAN HELPER Ot E83.42 HYPOMAGNESEMIA 07/13/2019 OSORIO, OBINNA L FISHERMAN HELPER Ot E86.0 DEHYDRATION 07/16/2019 OSORIO, OBINNA L FISHERMAN HELPER Ot E83.42 HYPOMAGNESEMIA 07/16/2019 OSORIO, OBINNA L FISHERMAN HELPER Ot E86.0 DEHYDRATION 07/16/2019 OSORIO, OBINNA L FISHERMAN HELPER Ot E83.42 HYPOMAGNESEMIA 07/16/2019 OSORIO, OBINNA L FISHERMAN HELPER Ot E86.0 DEHYDRATION 07/16/2019 OSORIO, OBINNA L FISHERMAN HELPER Ot E83.42 HYPOMAGNESEMIA 07/16/2019 OSORIO, OBINNA L FISHERMAN HELPER Ot E86.0 DEHYDRATION 07/16/2019 OSORIO, OBINNA L FISHERMAN HELPER Ot E83.42 HYPOMAGNESEMIA 07/16/2019 OSORIO, OBINNA L FISHERMAN HELPER Ot E86.0 DEHYDRATION 07/20/2019 CATALINA CHENP Ot J 90 PLEURAL EFFUSION, NOT ELSEWHERE CLASSIFI 07/20/2019 RUSSELL OSORIO DO Ot R05 COUGH 07/24/2019 CATALINA CHEN FISHERMAN HELPER Ot 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 07/24/2019 CATALINA CHEN FISHERMAN HELPER Ot J 90 PLEURAL EFFUSION, NOT ELSEWHERE CLASSIFI 07/24/2019 CATALINA CHEN S FISHERMAN HELPER Ot K43.9 VENTRAL HERNIA WITHOUT OBSTRUCTION OR GA 07/24/2019 CATALINA CHEN S FISHERMAN HELPER Ot K57.3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 07/24/2019 CATALINA CHEN S FISHERMAN HELPER Ot N20.0 CALCULUS OF KIDNEY 07/24/2019 CATALINA CHEN S FISHERMAN HELPER Ot R06.00 DYSPNEA, UNSPECIFIED 07/24/2019 CATALINA CHEN S FISHERMAN HELPER Ot R59.0 LOCALIZED ENLARGED LYMPH NODES 07/25/2019 Ot 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 07/26/2019 CHEN, CATALINA S FISHERMAN HELPER Ot 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 07/26/2019 CHEN, CATALINA S FISHERMAN HELPER Ot J 90 PLEURAL EFFUSION, NOT ELSEWHERE CLASSIFI 07/26/2019 APRIL CATALINA S FISHERMAN HELPER Ot K43.9 VENTRAL HERNIA WITHOUT OBSTRUCTION OR GA 07/26/2019 CHENCATALINA S FISHERMAN HELPER Ot K57.3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 07/26/2019 CATALINA CHEN S FISHERMAN HELPER Ot N20.0 CALCULUS OF KIDNEY 07/26/2019 CATALINA CHEN S FISHERMAN HELPER Ot R06.00 DYSPNEA, UNSPECIFIED 07/26/2019 CATALINA CHEN S FISHERMAN HELPER Ot R59.0 LOCALIZED ENLARGED LYMPH NODES 07/27/2019 OBINNA OSORIO FISHERMAN HELPER Ot E83.42 HYPOMAGNESEMIA 07/27/2019 OBINNA OSORIO L FISHERMAN HELPER Ot E86.0 DEHYDRATION 08/07/2019 RUSSELL OSORIO DO Ot R05 COUGH 08/07/2019 CHENCATALINA S FISHERMAN HELPER Ot J 90 PLEURAL EFFUSION, NOT ELSEWHERE CLASSIFI 08/10/2019 MATHEW GILMORE APRN Ot M79.89 OTHER SPECIFIED SOFT TISSUE DISORDERS 08/14/2019 Ot 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 08/15/2019 APRIL CATALINA S FISHERMAN HELPER Ot 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 08/15/2019 CHEN, CATALINA S FISHERMAN HELPER Ot J 90 PLEURAL EFFUSION, NOT ELSEWHERE CLASSIFI 08/15/2019 CATALINA CHEN FISHERMAN HELPER Ot K43.9 VENTRAL HERNIA WITHOUT OBSTRUCTION OR GA 08/15/2019 CATALINA CHEN FISHERMAN HELPER Ot K57.3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 08/15/2019 CATALINA CHEN FISHERMAN HELPER Ot N20.0 CALCULUS OF KIDNEY 08/15/2019 CATALINA CHEN FISHERMAN HELPER Ot R06.00 DYSPNEA, UNSPECIFIED 08/15/2019 CATALINA CHEN FISHERMAN HELPER Ot R59.0 LOCALIZED ENLARGED LYMPH NODES 08/20/2019 SARA MONCADA Lashell Ot 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, UNSP 08/22/2019 SARA MONCADA Lashell Ot 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 08/30/2019 OBINNA OSORIO FISHERMAN HELPER Ot E83.42 HYPOMAGNESEMIA 08/30/2019 OBINNA OSORIO FISHERMAN HELPER Ot E86.0 DEHYDRATION Procedures There is no [...] culture - 02/28/19 14:50 Bacterial urine culture [id number] NRG COLONY COUNT >100,000/ML NRG FTX;REPORTABLE SUSCEPTIBILITY [...] mg/dL 0.1-1.0 Serum or plasma alkaline phosphatase oamr surement (enzymatic activity/volume) 69 U/L 40-136 Serum [...] 8:32 RED CELLS LEUKO REDUCED AS1 P RSIN TRFSD 03/01/19 1057 NRG Blood type T Indirect antibody screen pa esteban - 03/01/19 08:32 WRISTBAND NUMBER [id number] NRG ABO+Rh group AP NRG Blood group [...] INFLUENZA A AND B ANTIGENS BY IA [facility] Automated blood complete blood count [...] FOR INFLUENZA A AND B ANTIGENS BY [facility] Comprehensive metabolic panel - 06/15/19 12:00 [...] FREE TEXT ENTRY 3 NO SUSCEPTIBILTIY PERFORMED [facility] Automated blood complete blood count [...] Status Pt. Type Provider Facility Loc./Unit Complaint [id number] 08/20/2019 08:00:00 23:59:59 CLS Preadmit MATHEW GILMORE APRN [facility] RAD LEG SWELLING [id number] 07/17/2019 10:27:00 00:01:00 DIS Outpatient SARA MONCADA [facility] ONC [id number] 07/27/2019 11:00:00 23:59:59 CLS Outpatient OBINNA OSORIOP [facility] SDC DEHYDRATION,CHR ONIC LOW MAG [id number] 07/23/2019 13:45:00 23:59:59 CLS Outpatient CATALINA CHEN FISHERMAN HELPER [facility] RAD DYSPNEA,CERVICA L CARCINOMA [id number] 07/18/2019 16:23:00 23:59:59 CLS Outpatient RUSSELL OSORIO DO [facility] LAB FS COUGH [id number] 07/18/2019 08:00:00 23:59:59 CLS Preadmit ABEBA SALAMANCA DO [facility] HISTORY OF CANCER [id number] 07/17/2019 12:32:00 23:59:59 CLS Outpatient CATALINA CHEN [facility] RAD [id number] 07/12/2019 11:30:00 23:59:59 CLS Outpatient ABEBA SALAMANCA DO [facility] PREOP HISTORY OF CANCER [id number] 06/28/2019 14:13:00 23:59:59 CLS Outpatient OBINNA OSORIO [facility] DEHYDRATION,CHR ONS LOW MG [id number] 06/25/2019 11:44:00 14:40:00 DIS Outpatient OBINNA OSORIO [facility] GASTROENTITIS,DEHYDRATION,UTI [id number] 06/15/2019 11:14:00 12:59:00 DIS Emergency ANGE MENDEZ DO [facility] ER FS VOMITING; DIARRHEA; HYPERGLYCEMIA; SOB [id number] 06/11/2019 14:25:00 23:59:59 CLS Outpatient OBINNA OSORIO [facility] RAD CHRONIC AND OTH ER PULMONARY MANIFESTATIONS DUE TO [id number] 06/11/2019 10:50:00 23:59:59 CLS Preadmit MARIANNE QUIROS MD [facility] WOUNDCARE [id number] 06/11/2019 12:10:00 14:55:00 DIS Outpatient OBINNA OSORIO [facility] LOW MG,DEHYDRAT ION [id number] 06/04/2019 15:20:00 18:44:00 DIS Emergency ROVENSTBIDNU REYES DO L [facility] ER FS SOA [id number] 05/28/2019 14:01:00 23:59:59 CLS Outpatient MARIANNE QUIROS MD [facility] WOUNDCARE [id number] 05/24/2019 12:56:00 16:10:00 DIS Outpatient OBINNA OSORIO [facility] DEHYDRATION,LOW MAGNESIUM [id number] 05/18/2019 11:32:00 15:50:00 DIS Outpatient OBINNA OSORIO [facility] TYPE 2 DIABETES,DEHYDRATION,LOW MAGNESIUM [id number] 03/01/2019 08:10:00 11:36:00 DIS Emergency KWASI PEREZ MD [facility] ER VAGINAL BLEEDING [id number] 02/28/2019 11:58:00 23:59:59 CLS Outpatient SHIRA GALVAN [facility] RAD POSTMENOPAUSAL BLEEDING [id number] 02/28/2019 13:56:00 17:27:00 DIS Emergency KWASI PEREZ MD [facility] ER ABNORMAL US [id number] 07/21/2019 18:10:00 Document Registration
[2019-09-04] MEDS ORDERED: cefTRIAXone FOR IV USE 500 MG in WATER (STERILE) FOR INJECTION 5 ML IV ONE (15:30)
[2019-09-04] MEDS ORDERED: WATER (STERILE) FOR INJECTION 10 ML ONE (15:31)
[2019-09-04] MEDS: cefTRIAXone 500 MG/1.43 ML vial (IM ONLY) ONE ×2 (15:45→15:46)
[2019-09-04] MEDS ORDERED: ANTACID SUSP 30 ML UDC (MYLANTA) PO PRN (16:15)
[2019-09-04] MEDS ORDERED: cefTRIAXone FOR IV USE 1,000 MG in WATER (STERILE) FOR INJECTION 10 ML IV SCH (16:15)
[2019-09-04] MEDS ORDERED: polyethylene glycoL POWDER 17 GM (MIRALAX) PACK PO PRN (16:15)
[2019-09-04] MEDS ORDERED: diphenhydrAMINE 25 MG TAB (BENADRYL) PO PRN (16:15)
[2019-09-04] MEDS ORDERED: ONDANSETRON 4 MG/2 ML (SDV) Z0FRAN IV PRN (16:15)
[2019-09-04] MEDS ORDERED: ONDANSETRON 4 MG (ZOFRAN) ORAL DISSOLVE TAB PO PRN (16:15)
[2019-09-04] MEDS ORDERED: MELATONIN 3 MG TABLET PO PRN (16:15)
[2019-09-04] MEDS ORDERED: ENOXAPARIN 40 MG/0.4 ML (LOVENOX) SYR SC SCH (16:15)
[2019-09-04] MEDS ORDERED: ACETAMINOPHEN 325 MG TABLET PO PRN (16:15)
[2019-09-04] MEDS: NS IV 1000 ML 1,000 ML IV SCH (18:02)
[2019-09-04 18:40] VITALS: BP 130/64
[2019-09-04 20:12] VITALS: BP 110/52
[2019-09-04] MEDS: inSUlin ASPART (NovoLOG) 1 UNIT/0.01 ML (CHARGE PER UNIT) SC SCH (21:38)
[2019-09-04] MEDS: DOCUSATE SODIUM 100 MG (COLACE) CAP PO SCH (21:46)
[2019-09-04 23:19] VITALS: BP 110/66
[2019-09-05 00:37] VITALS: BP 164/86
[2019-09-05] MEDS: NS IV 1000 ML 1,000 ML IV SCH (02:26)
[2019-09-05 04:04] VITALS: BP 127/67
[2019-09-05 05:34] LABS: BUN/CREATININE RATIO 19; CALCIUM 8.7 MG/DL (8.5-10.1); CARBON DIOXIDE 20 MMOL/L (21-32); CHLORIDE 108 MMOL/L (98-107); CREATININE SERUM 0.67 MG/DL (0.60-1.30); GFR ESTIMATED > 60; GLUCOSE 101 MG/DL (70-105); MAGNESIUM 1.3 MG/DL (1.6-2.4); POTASSIUM 3.3 MMOL/L (3.6-5.0); SODIUM 141 MMOL/L (135-145)
[2019-09-05] MEDS: inSUlin ASPART (NovoLOG) 1 UNIT/0.01 ML (CHARGE PER UNIT) SC SCH ×2 (06:01→11:29)
[2019-09-05 08:00] VITALS: BP 128/75
[2019-09-05] MEDS ORDERED: KCL 20 MEQ TAB (K-DUR) PO NR (08:00)
[2019-09-05] MEDS: MAGNESIUM 1 GM/100 ML IVPB 100 ML IV SCH ×3 (08:29→09:47)
[2019-09-05] MEDS: DOCUSATE SODIUM 100 MG (COLACE) CAP PO SCH (08:29)
[2019-09-05 08:40] VITALS: BP_SYST 113; BP_SYST 114; BP_SYST 128; BP_DIAS 66; BP_DIAS 69; BP_DIAS 75
[2019-09-05] MEDS ORDERED: CALC-880 PO (09:45)
[2019-09-05] MEDS ORDERED: MAGN250T13 PO (09:45)
[2019-09-05] MEDS ORDERED: CARB1DRO OU (09:45)
[2019-09-05] MEDS ORDERED: CYAN-41 PO (09:45)
[2019-09-05] MEDS ORDERED: ASCO500T17 PO (09:45)
--- NOTE | 2019-09-05 10:47 | Physical Therapy Evaluation ---
PT Evaluation-General Medical Diagnosis Admission Date Sep 04, 2019 at 14:00 Medical Diagnosis: orthostatic hypotension Onset Date: Sep 04, 2019 Therapy Diagnosis Therapy Diagnosis: impaired mobility, strength, endurance Precautions Precautions/Isolations: Fall Prevention, Standard Precautions Weight Bear Status Right Lower Extremity: Right Weight Bearing/Tolerated Left Lower Extremity: Left Weight Bearing/Tolerated Referral Physician: Daisha Reason for Referral: Evaluation/Treatment Medical History Additional Medical History Past Medical History Surgeries: Yes (BRACHYTHERAPY-CERVIX ) Appendectomy, Gallbladder, Tonsillectomy Respiratory: No Cardiac: Yes Hypertension Neurological: Yes Traumatic Brain Injury Sexually Transmitted Disease: No HIV/AIDS: No Genitourinary: No Gastrointestinal: No Musculoskeletal: No Endocrine: Yes Diabetes, Insulin dep HEENT: No Cancer: Yes Cervical Reviewed History: Yes Social History Home: [facility] Current Living Status: Spouse Entry Into Home: Stairs With Railing Patient has steps in many areas of the home, mostly she has 2 to go up and down when she has to use the restroom. Prior Prior Level of Function SCALE: Activities may be completed with or without assistive devices. 7-Btsrbdbahb-dzjvotc completes the activity by him/herself with no assistance from a helper. 5-Set-up or Clean-up Assistance-helper sets up or cleans up; patient completes activity. [place] assists only prior to or following the activity. 4-Supervision or Touching Assistance-helper provides verbal cues and/or touching/steadying and/or contact guard assistance as patient completes activity. Assistance may be provided throughout the activity or intermittently. 3-Partial/Moderate Assistance-helper does LESS THAN HALF the effort. [place] lifts, holds or supports trunk or limbs, but provides less than half the effort. 2-Substantial/Maximal Assistance-helper does MORE THAN HALF the effort. [place] lifts or holds trunk or limbs and provides more than half the effort. 2-Jexlgfsns-xfgkji does ALL the effort. Patient does none of the effort to complete the activity. Or, the assistance of 2 or more helpers is required for the patient to complete the activity. If activity was not attempted, code reason: 7-Patient Refused. 9-Not Applicable-not attempted and the patient did not perform the activity before the current illness, exacerbation or injury. 10-Not Attempted due to Environmental Limitations-(lack of equipment, weather restraints, etc.). 88-Not Attempted due to Medical Conditions or Safety Concerns. Bed Mobility: 6 Transfers (B,C,W/C): 6 Gait: 6 Stairs: 6 Indoor Mobility (Ambulation): Independent Stairs: Independent PT Evaluation-Current Subjective Patient in bed pre tx, agrees to PT, has 4/10 pain in bottom on her wound. Pt/Family Goals to improve SOB and weakness Objective Patient Orientation: Person, Place, Situation Attachments: IV ROM/Strength ROM Lower Extremities WNL Strength Lower Extremities 4/5 gross BLE Integumentary/Posture Integumentary BLE swelling Sensory Vision: Wears Glasses Hearing: Functional Transfers Roll Left to Right (QC): 6 Sit to Lying (QC): 6 Lying to Sitting/Side of Bed(Q: 6 Sit to Stand (QC): 4 Chair/Tet-mu-Fgthn Xfer(QC): 4 some difficulty with supine <-> sit but can do it without assist, CGA for sit to stand and transfers. BP taken at sitting 132/79, standing 91/56, and then standing again after a minute 112/73. Gait Does the Patient Walk?: Yes Mode of Locomotion: Walk Anticipated Mode of Locomotion: Walk Walk 10 feet (QC): 4 Distance: 30' Gait Assistive Device: FWW Comments/Gait Description Patient ambulates slowly, gets SOB easily, cues for purse lip breathing. No LOB but patient states on the way back that she is getting disoriented. Balance Sitting Static: Normal Sitting Dynamic: Normal Standing Static: Good Standing Dynamic: Fair Treatment BLE supine exercises x20 (AP, QS, HS) Assessment/Needs Patient has SOB with activity, some disorientation during ambulation. Patient in bed post tx, Jose the wound nurse in room to take over. Rehab Potential: Fair PT Litigation Services Manager Goals Litigation Services Manager Goals PT Litigation Services Manager Goals Time Frame: September 12, 2019 Roll Left & Right (QC): 6 Sit to Lying (QC): 6 Lying-Sitting on Side/Bed(QC): 6 Sit to Stand (QC): 6 Chair/Dra-bw-Akkrt Xfer(QC): 6 Walk 10 feet (QC): 5 Walk 50ft with 2 Turns (QC): 5 Walk 150 ft (QC): 5 PT Plan Problem List Problem List: Activity Tolerance, Functional Strength, Safety, Balance, Gait, Transfer Treatment/Plan Treatment Plan: Continue Plan of Care Treatment Plan: Education, Functional Activity Nickolas, Functional Strength, Gait, Safety, Therapeutic Exercise, Transfers Treatment Duration: September 12, 2019 Frequency: 6 times per week Estimated Hrs Per Day: .25 hour per day Patient and/or Family Agrees t: Yes Safety Risks/Education Patient Education: Gait Training, Transfer Techniques, Correct Positioning, Safety Issues Teaching Recipient: Patient Teaching Methods: Demonstration, Discussion Response to Teaching: Reinforcement Needed Discharge Recommendations Plan Patient will perform bed mobility and transfer training, balance and endurance training, functional strengthening, stair training, gait training, and education, to improve functional mobility and independence at home. Therapy Discharge Recommendati: Home & Family Time/GCodes Time In: 1019 Time Out: 1035 Total Billed Treatment Time: 16 Total Billed Treatment 1 visit JAVY RANGEL PT Sep 05, 2019 10:47
[2019-09-05] MEDS ORDERED: NS IV 1000 ML 1,000 ML IV SCH (11:30)
[2019-09-05 12:00] VITALS: BP 135/77
[2019-09-05] MEDS ORDERED: cefTRIAXone FOR IV USE 1,000 MG in WATER (STERILE) FOR INJECTION 10 ML IV NR (12:00)
[2019-09-05] MEDS ORDERED: CEFD300C3 PO (12:02)
--- NOTE | 2019-09-05 12:39 | Discharge Summary ---
Discharge Summary Hospital Course Was the Problem List Reviewed?: Yes Problems/Dx: (1) Urinary tract infection Status: Acute Qualifiers: (2) Orthostatic hypotension Status: Resolved (3) Debility Status: Chronic (4) Decubitus ulcer Status: Acute (5) Cervical cancer Status: Resolved Hospital Course Date of Admission: Sep 04, 2019 at 14:00 Admission Diagnosis : Orthostatic hypotension Family Physician/Provider: Nata Urban Dnp Date of Discharge: 09/05/19 Discharge Diagnosis: Orthostatic hypotension due to dehydration secondary to urinary tract infection Hospital Course: Kemal Mireles is a 69-year-old female with past medical history of cervical cancer currently in remission who presented with lightheadedness and dizziness and was admitted with orthostatic hypotension due to dehydration secondary to urinary tract infection. She was treated with IV fluids and her orthostasis resolved. She had also taken Coreg the morning of her admission which she had not been taking recently. She was given IV Rocephin for her urinary tract infection. Her sensitivities were pending at the time of discharge. She has a history of a pansensitive Escherichia coli in her urine. She will complete a course of Omnicef for urinary tract infection. She is being referred to physical therapy as an outpatient due to debility. She was also found to have a decubitus ulcer. She was referred to physical therapy. She should follow-up with her primary ca re physician. Labs and Pending Lab Test: Laboratory Tests 09/04/19 12:30: White Blood Count 3.8L, Red Blood Count 3.66L, Hemoglobin 11.3L, Hematocrit 34L, Mean Corpuscular Volume 92, Mean Corpuscular Hemoglobin 31, Mean Corpuscular Hemoglobin Concent 33, Red Cell Distribution Width 14.5, Platelet Count 196, Mean Platelet Volume 8.7, Neutrophils (%) (Auto) 76H, Lymphocytes (%) (Auto) 15, Monocytes (%) (Auto) 7, Eosinophils (%) (Auto) 2, Basophils (%) (Auto) 0, Neutrophils # (Auto) 2.9, Lymphocytes # (Auto) 0.6L, Monocytes # (Auto) 0.3, Eosinophils # (Auto) 0.1, Basophils # (Auto) 0.0, Prothrombin Time 13.6, INR Comment 1.0, Sodium Level 142, Potassium Level 3.5L, Chloride Level 101, Carbon Dioxide Level 27, Anion Gap 14, Blood Urea Nitrogen 16, Creatinine 0.71, Estimat Glomerular Filtration Rate > 60, BUN/Creatinine Ratio 23, Glucose Level 131H, Calcium Level 9.5, Corrected Calcium 10.2H, Total Bilirubin 0.7, Aspartate Amino Transf (AST/SGOT) 16, Alanine Aminotransferase (ALT/SGPT) 5, Alkaline Phosphatase 61, Troponin I < 0.30, Pro-B-Type Natriuretic Peptide 90.6H, Total Protein 6.6, Albumin 3.1L 09/04/19 14:40: Urine Color YELLOW, Urine Clarity CLEAR, Urine pH 5.0, Urine Specific [place] >1.030, Urine Protein TRACEH, Urine Glucose (UA) NEGATIVE, Urine Ketones 1+H, Urine Nitrite NEGATIVE, Urine Bilirubin 1+H, Urine Urobilinogen 1.0, Urine Leukocyte Esterase 1+H, Urine RBC (Auto) 3+H, Urine RBC 10-25H, Urine WBC 25-50H , Urine Crystals PRESENTH, Urine Calcium Oxalate Crystals FEWH, Urine Bacteria FEWH, Urine Casts NONE, Urine Mucus MODERATEH, Urine Culture Indicated YES 09/04/19 21:30: Glucometer 115H 09/05/19 04:30: Sodium Level 141, Potassium Level 3.3L, Chloride Level 108H, Carbon Dioxide Level 20L, Anion Gap 13, Blood Urea Nitrogen 13, Creatinine 0.67, Estimat Glomerular Filtration Rate > 60, BUN/Creatinine Ratio 19, Glucose Level 101, Calcium Level 8.7, Magnesium Level 1.3L 09/05/19 10:45: Glucometer 150H Home Meds Active Cefdinir 300 Mg Capsule 300 Mg PO BID 10 Days Reported Refresh Plus (Carboxymethylcellulose Sodium) 1 Each Droperette 1-2 Drops OU PRN PRN Vitamin C (Ascorbic Acid) 500 Mg Tablet 500 Mg PO DAILY Vitamin B-12 (Cyanocobalamin (Vitamin B-12)) 1,000 Mcg Tablet 1,000 Mcg PO DAILY Calcium 500 + Vit D 400 Tablet (Calcium Carbonate/Vitamin D3) 1 Each Tablet 1 Each PO DAILY Magnesium (Magnesium Oxide) 250 Mg Tablet 250 Mg PO DAILY Claritin (Loratadine) 10 Mg Capsule 10 Mg PO DAILY Coreg (Carvedilol) 12.5 Mg Tablet 12.5 Mg PO DAILY Lantus Solostar (Insulin Glargine,Hum.rec.anlog) 100 Unit/1 Ml Insuln.pen 15 Unit SQ HS Assessment/Pt Instructions Take medications as prescribed. Complete your course of antibiotics even if you're feeling better. Participate in physical therapy. Follow-up with your primary care physician. Discharge Planning: <30 minutes discharge planning Discharge Instructions Discharge Diet: No Restrictions Activity as Tolerated: Yes Discharge Physical Examination Vital Signs Vital Signs Date Time Temp Pulse Resp B/P (MAP) Pulse Ox O2 Delivery O2 Flow Rate FiO2 09/05/19 08:40 83 128/75 (92) 94 114/66 (82) 98 113/69 (84) 09/05/19 08:00 Room Air 09/05/19 08:00 36.5 20 97 General Appearance: No Apparent Distress, Chronically ill HEENT: PERRL/EOMI, Pharynx Normal Respiratory: Lungs Clear, Normal Breath Sounds, No Respiratory Distress Cardiovascular: Regular Rate, Rhythm, No Edema, No Murmur Gastrointestinal: Normal Bowel Sounds, Non Tender, Soft Extremity: Normal Inspection, Non Tender, No Pedal Edema Skin: Normal Color, Warm/Dry Neurologic/Psychiatric: Alert, Oriented x3, No Motor/Sensory Deficits, Normal Mood/Affect Allergies: Coded Allergies: Penicillins (Verified Allergy, Severe, SOA, 09/04/19) ciprofloxacin (Verified Allergy, Severe, BURNING SENSATION, 09/04/19) Sulfa (Sulfonamide Antibiotics) (Verified Allergy, Unknown, 09/04/19) bacitracin (Verified Allergy, Unknown, 09/04/19) benazepril (Verified Allergy, Unknown, 09/04/19) Copy Copies To 1: RUSSELL URBAN DO Discharge Summary Date of Admission Sep 04, 2019 at 14:00 Date of Discharge Discharge Date: Sep 05, 2019 Discharge Time: 12:38 Admission Diagnosis Orthostatic hypotension Discharge Diagnosis (1) Orthostatic hypotension Status: Resolved (2) Urinary tract infection Status: Acute Qualifiers: (3) Debility Status: Chronic (4) Decubitus ulcer Status: Acute Clinical Quality Measures DVT/VTE Risk/Contraindication: Risk Factor Score Per Nursin RFS Level Per Nursing on Admit: 4+=Very High DEE DEE LOWRY MD Sep 05, 2019 12:32
[2019-09-05 14:45] VITALS: BP 135/77
== END 2019-09-05 14:45 | disposition home or self-care (01) ==
LOC: EDUNIT# 12:23 → ER FS 12:28 → 4TH 14:00
PROVIDERS: ADMIT Internal Medicine; ATTEND Internal Medicine
CPT/HCPCS: 36415; 70450; 71045; 80048; 80053; 81000; 82962; 83735; 83880; 84484; 85025; 85610; 87077; 87088; 87186; 93005; G0378

== ENCOUNTER 2019-09-23 11:30 | Emergency (ER) | payer MEDICARE, OTHER ==
[~2019-09-23] VITALS: Ht 165 cm; Wt 70.0 kg
[~2019-09-23 11:30] MED LIST changes: +ASCO500T17 PO; +CALC-880 PO; +CARB1DRO OU; +CEFD300C3 PO; +CYAN-41 PO; +MAGN250T13 PO
--- OUTSIDE RECORDS SUMMARY | 2019-09-23 11:36 | XMS REPORT | Continuity of Care Document ---
Author Organization Unknown Address Unknown Phone Unavailable Allergies Active Description Code Type Severity Reaction Onset Reported/Identified Relationship to Patient Clinical Status Yes No Allergy Information Available [id number] Drug Allergy Unknown N/A 019 Yes ciprofloxacin [id number] Tramaine g Allergy Severe BURNING SENSATI 09/04/2019 Yes Penicillins [id number] Drug Aller gy Severe SOA 09/04/2019 Yes bacitracin [id number] Drug Allerg y Unknown N/A 09/04/2019 Yes benazepril [id number] Drug Allerg y Unknown N/A 09/04/2019 Yes Sulfa (Sulfonamide Antibiotics) [id number] Drug Allergy Unknown N/A 020 Yes Penicillins [id number] Drug Aller gy Severe SOA, pt has rec 09/05/2019 Medications There is no data. 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 03/05/2019 SHIRA GALVANP Ot N13.2 HYDRONEPHROSIS WITH RENAL AND URETERAL C 03/05/2019 SHIRA GALVANP Ot N88.8 OTHER SPECIFIED NONINFLAMMATORY DISORDER 03/05/2019 SHIRA GALVANP Ot N95.0 POSTMENOPAUSAL BLEEDING 03/05/2019 SHIRA GALVANP Ot R59.0 LOCALIZED ENLARGED LYMPH NODES 03/05/2019 SHIRA GALVAN Ot Z01.4 11 ENCNTR FOR MEDICAID SPECIALIST EXAM (GENERAL) (ROUTINE) 03/05/2019 KWASI PEREZ MD [...] ACQUIRED ABSENCE OF OTHER ORGANS 03/06/2019 SHIRA GALVAN Ot K57.3 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 03/06/2019 SHIRA GALVANP Ot N13.2 HYDRONEPHROSIS WITH RENAL AND URETERAL C 03/06/2019 SHIRA GALVAN [employer]ATOR Ot N88.8 OTHER SPECIFIED NONINFLAMMATORY DISORDER 03/06/2019 SHIRA GALVANP Ot N95.0 POSTMENOPAUSAL BLEEDING 03/06/2019 SHIRA GALVAN Ot R59.0 LOCALIZED ENLARGED LYMPH NODES 03/06/2019 SHIRA GALVAN Ot Z01.4 11 ENCNTR FOR MEDICAID SPECIALIST EXAM (GENERAL) (ROUTINE) 03/07/2019 KWASI PEREZ MD [...] KWASI PEREZ MD Ot Z01.411 ENCNTR FOR MEDICAID SPECIALIST EXAM (GENERAL) (ROUTINE) 03/20/2019 KWASI PEREZ MD Ot Z87.820 PERSONAL HISTORY OF TRAUMATIC BRAIN INJU 03/20/2019 KWASI PEREZ MD Ot Z88. 0 ALLERGY STATUS TO PENICILLIN 03/20/2019 KWASI PEREZ MD Ot Z88. 1 ALLERGY STATUS TO OTHER ANTIBIOTIC AGENT 03/20/2019 ANA MD, KWASI J Ot Z88. 2 ALLERGY STATUS TO SULFONAMIDES STATUS 03/20/2019 KWASI PEREZ MD Ot Z88. 8 ALLERGY STATUS TO OTH DRUG/MEDS/BIOL SUB 03/20/2019 KWASI PEREZ MD Ot Z90. 49 ACQUIRED ABSENCE OF OTHER SPECIFIED PART 03/20/2019 KWASI PEREZ MD Ot Z90. 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 03/21/2019 SHIRA GALVAN [employer] Ot N13.2 HYDRONEPHROSIS WITH RENAL AND URETERAL C 03/21/2019 SHIRA GALVANP Ot N88.8 OTHER SPECIFIED NONINFLAMMATORY DISORDER 03/21/2019 SHIRA GALVANP Ot N95.0 POSTMENOPAUSAL BLEEDING 03/21/2019 SHIRA GALVANP Ot R59.0 LOCALIZED ENLARGED LYMPH NODES 03/21/2019 SHIRA GALVANP Ot Z01.4 11 ENCNTR FOR MEDICAID SPECIALIST EXAM (GENERAL) (ROUTINE) 03/29/2019 KWASI PEREZ MD [...] KWASI PEREZ MD Ot Z01.411 ENCNTR FOR MEDICAID SPECIALIST EXAM (GENERAL) (ROUTINE) 03/29/2019 KWASI PEREZ MD Ot Z87.820 PERSONAL HISTORY OF TRAUMATIC BRAIN INJU 03/29/2019 KWASI PEREZ MD Ot Z88. 0 ALLERGY STATUS TO PENICILLIN 03/29/2019 KWASI PEREZ MD Ot Z88. 1 ALLERGY STATUS TO OTHER ANTIBIOTIC AGENT 03/29/2019 ANA MENDEZ, KWASI Michael Ot Z88. 2 ALLERGY STATUS TO SULFONAMIDES STATUS 03/29/2019 KWASI PEREZ MD Ot Z88. 8 ALLERGY STATUS TO OTH DRUG/MEDS/BIOL SUB 03/29/2019 KWASI PEREZ MD Ot Z90. 49 ACQUIRED ABSENCE OF OTHER SPECIFIED PART 03/29/2019 KWASI PEREZ MD Ot Z90. 89 ACQUIRED ABSENCE OF OTHER ORGANS 05/18/2019 LIYA OSORIORICIA L [employer] Ot E11.69 TYPE 2 DIABETES MELLITUS WITH OTHER SPEC 05/18/2019 OSORIO OBINNA L [employer] Ot E11.69 TYPE 2 DIABETES MELLITUS WITH OTHER SPEC 05/18/2019 OSORIO, OBINNA L [employer] Ot D64.89 OTHER SPECIFIED ANEMIAS 05/18/2019 DEVON OBINNA L [employer] Ot E11.69 TYPE 2 DIABETES MELLITUS WITH OTHER SPEC 05/18/2019 DEVON OBINNA L [employer] Ot E83.42 HYPOMAGNESEMIA 05/18/2019 DEVON OBINNA L [employer] Ot E86.0 DEHYDRATION 05/18/2019 DEVON OBINNA L [employer] Ot R06.09 OTHER FORMS OF DYSPNEA 05/18/2019 DEVON OBINNA L [employer] Ot E11.69 TYPE 2 DIABETES MELLITUS WITH OTHER SPEC 05/22/2019 SHIRA GALVAN [employer] Ot K57.3 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 05/22/2019 SHIRA GALVAN [employer] Ot N13.2 HYDRONEPHROSIS WITH RENAL AND URETERAL C 05/22/2019 SHIRA GALVAN [employer] Ot N88.8 OTHER SPECIFIED NONINFLAMMATORY DISORDER 05/22/2019 SHIRA GALVANP Ot N95.0 POSTMENOPAUSAL BLEEDING 05/22/2019 SHIRA GALVANP Ot R59.0 LOCALIZED ENLARGED LYMPH NODES 05/22/2019 SHIRA GALVANP Ot Z01.4 11 ENCNTR FOR MEDICAID SPECIALIST EXAM (GENERAL) (ROUTINE) 05/24/2019 OBINNA OSORIO L [employer] Ot E83.42 HYPOMAGNESEMIA 05/24/2019 OSORIO, OBINNA L [employer] Ot E86.0 DEHYDRATION 05/24/2019 OSORIO, OBINNA L [employer] Ot Z88.0 ALLERGY STATUS TO PENICILLIN 05/24/2019 OSORIO, OBINNA L [employer] Ot Z88.2 ALLERGY STATUS TO SULFONAMIDES STATUS 05/26/2019 OSORIO, OBINNA L [employer] Ot E83.42 HYPOMAGNESEMIA 05/26/2019 OSORIO, OBINNA L [employer] Ot E86.0 DEHYDRATION 05/26/2019 OSORIO, OBINNA L [employer] O[employer] Ot Z88.0 ALLERGY STATUS TO PENICILLIN 05/26/2019 OSORIO, OBINAN L [employer] OPER[employer] Ot Z88.2 ALLERGY STATUS TO SULFONAMIDES STATUS 05/28/2019 OSORIO, OBINNA L [employer] Ot E83.42 HYPOMAGNESEMIA 05/28/2019 OSORIO, OBINNA L [employer] Ot E86.0 DEHYDRATION 05/28/2019 OSORIO, OBINNA L [employer] Ot Z88.0 ALLERGY STATUS TO PENICILLIN 05/28/2019 OSORIO, OBINNA L [employer] Ot Z88.2 ALLERGY STATUS TO SULFONAMIDES STATUS 05/30/2019 ISHAAN MENDEZ, MARIANNE Cunningham Ot D68.9 COAGULATION DEFECT, UNSPECIFIED 05/30/2019 ISHAAN MENDEZ, MARIANNE Cunningham Ot I 96 GANGRENE, NOT ELSEWHERE CLASSIFIED 05/30/2019 ISHAAN MENDEZ, MARIANNE Cunningham Ot 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, STAGE 3 05/30/2019 MARIANNE QUIROS MD Ot N39.0 URINARY TRACT INFECTION, SITE NOT SPECIF 05/31/2019 SARA MONCADA Ot 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, UNSP 06/04/2019 ROVENSTINE DO, BINDU L Ot D70.9 NEUTROPENIA, UNSPECIFIED 06/04/2019 ROVENSTINE DO, BINDU L Ot I10 ESSENTIAL (PRIMARY) HYPERTENSION 06/04/2019 ROVENSTINE DO, BINDU L Ot R06.00 DYSPNEA, UNSPECIFIED 06/04/2019 ROVENSTINE DO, BINDU L Ot Z85.41 PERSONAL HISTORY OF MALIGNANT NEOPLASM O 06/04/2019 ROVENSTINE DOMAEVEEN L Ot Z87.820 PERSONAL HISTORY OF TRAUMATIC [...] OF OTHER ORGANS 06/04/2019 ROVENSTINE DO, BINDU L Ot Z92.21 PERSONAL HISTORY OF ANTINEOPLASTIC CHEMO 06/06/2019 ROVENSTINE DO, BINDU L Ot D70.9 NEUTROPENIA, UNSPECIFIED 06/06/2019 ROVENSTINE DO, BINDU Parr Ot I10 ESSENTIAL (PRIMARY) HYPERTENSION 06/06/2019 ROVENSTINE DO, BINDU L Ot R06.00 DYSPNEA, UNSPECIFIED 06/06/2019 ROVENSTINE DO, BINDU L Ot Z85.41 PERSONAL HISTORY OF MALIGNANT NEOPLASM O 06/06/2019 ROVENSTINE DO, BINDU Keshav Ot Z87.820 PERSONAL HISTORY OF TRAUMATIC BRAIN INJU 06/06/2019 ROVENSTINE DO, BINDU Keshav Ot Z88.0 ALLERGY STATUS TO PENICILLIN 06/06/2019 ROVENSTINE DO, BINDU Keshav Ot Z88.1 ALLERGY STATUS TO OTHER ANTIBIOTIC AGENT 06/06/2019 ROVENSTINE DO, BINDU Parr Ot Z88.2 ALLERGY STATUS TO SULFONAMIDES STATUS 06/06/2019 ROVENSTINE DO, BINDU Keshav Ot Z90.49 ACQUIRED ABSENCE OF OTHER SPECIFIED PART 06/06/2019 ROVENSTINE DO, BINDU Keshav Ot Z90.89 ACQUIRED ABSENCE OF OTHER ORGANS 06/06/2019 ROVENSTINE DO, BINDU Keshav Ot Z92.21 PERSONAL HISTORY OF ANTINEOPLASTIC CHEMO 06/11/2019 OBINNA OSORIO [employer] Ot E83.42 HYPOMAGNESEMIA 06/11/2019 OBINNA OSORIO [employer] Ot E86.0 DEHYDRATION 06/11/2019 OBINNA OSORIO [employer] O[employer] Ot J70.1 CHRONIC AND OTHER PULMONARY MANIFESTATIO 06/11/2019 OBINNA OSORIO [employer] Ot J90 PLEURAL EFFUSION, NOT ELSEWHERE CLASSIFI 06/12/2019 OBINNA OSORIO [employer] Ot J70.1 CHRONIC AND OTHER PULMONARY MANIFESTATIO 06/12/2019 OBINNA OSORIO [employer] OPERATOR Ot J90 PLEURAL EFFUSION, NOT ELSEWHERE CLASSIFI 06/12/2019 OBINNA OSORIO [employer] Ot E83.42 HYPOMAGNESEMIA 06/12/2019 OBINNA OSORIO [employer] Ot E86.0 DEHYDRATION 06/15/2019 MENDEZ DO, ANGE [...] TO OTH DRUG/MEDS/BIOL SUB 06/17/2019 OBINNA OSORIO [employer] Ot E83.42 HYPOMAGNESEMIA 06/17/2019 OBINNA OSORIO [employer] Ot E86.0 DEHYDRATION 06/19/2019 MENDEZ DO, ANGE [...] ANGE L Ot Z88.8 ALLERGY STATUS TO [facility] DRUG/MEDS/BIOL SUB 06/25/2019 OSORIO, OBINNA L [employer] O[employer] Ot E83.42 HYPOMAGNESEMIA 06/25/2019 OSORIO, OBINNA L [employer] Ot E86.0 DEHYDRATION 06/25/2019 OSORIO, OBINNA L [employer] Ot E87.6 HYPOKALEMIA 06/25/2019 OSORIO OBINNA L [employer] Ot K52.9 NONINFECTIVE GASTROENTERITIS AND COLITIS 06/25/2019 OSORIO, OBINNA L [employer] Ot N39.0 URINARY TRACT INFECTION, SITE NOT SPECIF 06/25/2019 OSORIO, OBINNA L [employer] Ot R68.89 OTHER GENERAL SYMPTOMS AND SIGNS 06/25/2019 DEVON OBINNA L [employer] Ot R68.89 OTHER GENERAL SYMPTOMS AND SIGNS 06/26/2019 ISHAAN MENDEZ, MARIANNE Cunningham Ot D68.9 COAGULATION DEFECT, UNSPECIFIED 06/26/2019 ISHAAN MENDEZ, MARIANNE Cunningham Ot I 96 GANGRENE, NOT ELSEWHERE CLASSIFIED 06/26/2019 ISHAAN MENDEZ, MARIANNE Cunningham Ot 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, STAGE 3 06/26/2019 ISHAAN MENDEZ, MARIANNE Cunningham Ot N39.0 URINARY TRACT INFECTION, SITE NOT SPECIF 06/26/2019 DEVON OBINNA L [employer] Ot E83.42 HYPOMAGNESEMIA 06/26/2019 LIYA OSORIORICIA L [employer] OPERATOR Ot E86.0 DEHYDRATION 06/26/2019 LIYA OSORIORICIA L [employer] O[employer] Ot E87.6 HYPOKALEMIA 06/26/2019 LIYA OSORIORICIA L [employer] OPERATOR Ot K52.9 NONINFECTIVE GASTROENTERITIS AND COLITIS 06/26/2019 LIYA OSORIORICIA L [employer]PER[employer] Ot N39.0 URINARY TRACT INFECTION, SITE NOT SPECIF 06/26/2019 OSORIO, OBINNA L [employer] OPER[employer] Ot R68.89 OTHER GENERAL SYMPTOMS AND SIGNS 06/28/2019 LIYA OSORIORICIA L [employer] OPER[employer] Ot E83.42 HYPOMAGNESEMIA 06/28/2019 OSORIO, OBINNA L [employer] OPER[employer] Ot E86.0 DEHYDRATION 06/28/2019 LIYA OSORIORICIA L [employer] OPERATOR Ot J70.1 CHRONIC AND OTHER PULMONARY MANIFESTATIO 06/28/2019 WIL OSORIOIA L [employer] OPERATOR Ot J90 PLEURAL EFFUSION, NOT ELSEWHERE CLASSIFI 06/29/2019 LIYA OSORIORICIA L [employer] Ot E83.42 HYPOMAGNESEMIA 06/29/2019 OSORIO, OBINNA L [employer] OPERATOR Ot E86.0 DEHYDRATION 07/03/2019 OSORIO, OBINNA L [employer] OPER[employer] Ot E83.42 HYPOMAGNESEMIA 07/03/2019 OSORIO, OBINNA L [employer]PER[employer] Ot E86.0 DEHYDRATION 07/03/2019 SARA MONCADA Ot 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, UNSP 07/12/2019 [place] DO, ABEBA B Ot Z01.8 18 ENCOUNTER FOR OTHER PREPROCEDURAL EXAMIN 07/12/2019 [facility] DO, ABEBA B Ot Z01.8 18 ENCOUNTER FOR OTHER PREPROCEDURAL EXAMIN 07/12/2019 [facility], ABEBA B Ot Z01.8 18 ENCOUNTER FOR OTHER PREPROCEDURAL EXAMIN 07/13/2019 [facility] DO, ABEBA B Ot Z01.8 18 ENCOUNTER FOR OTHER PREPROCEDURAL EXAMIN 07/13/2019 LIYA OSORIORICIA L [employer] Ot E83.42 HYPOMAGNESEMIA 07/13/2019 DEVON, OBINNA L [employer] OPERATOR Ot E86.0 DEHYDRATION 07/16/2019 OSORIO, OBINNA L [employer] OPER[employer] Ot E83.42 HYPOMAGNESEMIA 07/16/2019 OSORIO, OBINNA L [employer] OPERATOR Ot E86.0 DEHYDRATION 07/16/2019 DEVON, OBINNA L [employer] OPERATOR Ot E83.42 HYPOMAGNESEMIA 07/16/2019 OSORIO, OBINNA L [employer] OPERATOR Ot E86.0 DEHYDRATION 07/16/2019 OSORIO, OBINNA L [employer] OPERATOR Ot E83.42 HYPOMAGNESEMIA 07/16/2019 OSORIO, OBINNA L [employer] OPERATOR Ot E86.0 DEHYDRATION 07/16/2019 OSORIO, OBINNA L [employer] OPERATOR Ot E83.42 HYPOMAGNESEMIA 07/16/2019 OSORIO, OBINNA L [employer] OPERATOR Ot E86.0 DEHYDRATION 07/20/2019 CATALINA CHEN [employer] O[employer]ATOR Ot J 90 PLEURAL EFFUSION, NOT ELSEWHERE CLASSIFI 07/20/2019 RUSSELL OSORIO DO Ot R05 COUGH 07/24/2019 APRIL CATALINA S [employer] Ot 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 07/24/2019 CHEN, CATALINA S [employer] OPERATOR Ot J 90 PLEURAL EFFUSION, NOT ELSEWHERE CLASSIFI 07/24/2019 CHEN CATALINA S [employer] O[employer]ATOR Ot K43.9 VENTRAL HERNIA WITHOUT OBSTRUCTION OR GA 07/24/2019 APRIL HILAH S [employer] O[employer] Ot K57.3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 07/24/2019 APRIL CATALINA S [employer] O[employer] Ot N20.0 CALCULUS OF KIDNEY 07/24/2019 CHEN, HILAH S [employer] O[employer]ATOR Ot R06.00 DYSPNEA, UNSPECIFIED 07/24/2019 CHEN HILAH S [employer] OPERATOR Ot R59.0 LOCALIZED ENLARGED LYMPH NODES 07/25/2019 Ot 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 07/26/2019 APRIL LUCYAH S [employer] Ot 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 07/26/2019 APRIL CATALINA S [employer] OPERATOR Ot J 90 PLEURAL EFFUSION, NOT ELSEWHERE CLASSIFI 07/26/2019 APRIL CATALINA S [employer] OPERATOR Ot K43.9 VENTRAL HERNIA WITHOUT OBSTRUCTION OR GA 07/26/2019 APRIL CATALINA S [employer] OPERATOR Ot K57.3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 07/26/2019 APRIL CATALINA S [employer] OPERATOR Ot N20.0 CALCULUS OF KIDNEY 07/26/2019 APRIL CATALINA S [employer] OPERATOR Ot R06.00 DYSPNEA, UNSPECIFIED 07/26/2019 APRIL CATALINA S [employer] OPERATOR Ot R59.0 LOCALIZED ENLARGED LYMPH NODES 07/27/2019 OBINNA OSORIO [employer] OPERATOR Ot E83.42 HYPOMAGNESEMIA 07/27/2019 OBINNA OSORIO L [employer] OPERATOR Ot E86.0 DEHYDRATION 08/07/2019 RUSSELL OSORIO DO Ot R05 COUGH 08/07/2019 APRIL CATALINA S [employer] OPERATOR Ot J 90 PLEURAL EFFUSION, NOT ELSEWHERE CLASSIFI 08/10/2019 MATHEW GILMORE APRN Ot M79.89 OTHER SPECIFIED SOFT TISSUE DISORDERS 08/14/2019 Ot 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 08/15/2019 CATALINA CHEN [employer]PERATOR Ot 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 08/15/2019 CATALINA CHEN [employer] OPERATOR Ot J 90 PLEURAL EFFUSION, NOT ELSEWHERE CLASSIFI 08/15/2019 CATALINA CHEN [employer] OPERATOR Ot K43.9 VENTRAL HERNIA WITHOUT OBSTRUCTION OR GA 08/15/2019 CATALINA CHEN [employer] OPERATOR Ot K57.3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 08/15/2019 CATALINA CHEN [employer] OPERATOR Ot N20.0 CALCULUS OF KIDNEY 08/15/2019 CATALINA CHEN [employer] OPERATOR Ot R06.00 DYSPNEA, UNSPECIFIED 08/15/2019 CATALINA CHEN [employer] OPERATOR Ot R59.0 LOCALIZED ENLARGED LYMPH NODES 08/20/2019 SARA MONCADA Ot 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, [facility] 08/22/2019 SARA MONCADA Ot 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 9 MALIGNANT NEOPLASM OF CERVIX UTERI, [facility] 09/05/2019 DEE DEE LOWRY MD Ot E11. 9 TYPE 2 DIABETES MELLITUS WITHOUT COMPLIC 09/05/2019 DEE DEE LOWRY MD Ot E86. 0 DEHYDRATION 09/05/2019 DEE DEE LOWRY MD Ot I10 ESSENTIAL (PRIMARY) HYPERTENSION 09/05/2019 DEE DEE LOWRY MD Ot I95. 1 ORTHOSTATIC HYPOTENSION 09/05/2019 DEE DEE LOWRY MD Ot L89.303 PRESSURE ULCER OF UNSPECIFIED BUTTOCK, S 09/05/2019 DEE DEE LOWRY MD Ot N39. 0 URINARY TRACT INFECTION, SITE NOT SPECIF 09/05/2019 DEE DEE LOWRY MD Ot Z79. 4 PRISON (CURRENT) USE OF INSULIN 09/05/2019 DEE DEE LOWRY MD, Ot Z87.820 PERSONAL HISTORY OF TRAUMATIC BRAIN INJU 09/05/2019 DEE DEE LOWRY MD, Ot Z90. 49 ACQUIRED ABSENCE OF OTHER SPECIFIED PART 09/05/2019 DEE DEE LOWRY MD, Ot Z90. 89 ACQUIRED ABSENCE OF OTHER ORGANS Procedures There is no data. Results Test [...] culture - 02/28/19 14:50 Bacterial urine culture [id number] NRG COLONY COUNT >100,000/ML NRG FTX;REPORTABLE SUSCEPTIBILITY [...] 8:32 RED CELLS LEUKO REDUCED AS1 P RSMD TRFSD 03/01/19 1057 NRG Blood type T Indirect antibody screen pa esteban - 03/01/19 08:32 WRISTBAND NUMBER [id number] NRG ABO+Rh group AP NRG Blood group [...] anisocytosis detection by light microscopy S LIGHT NR Comprehensive metabolic panel - 06/04/19 15:35 Serum [...] INFLUENZA A AND B ANTIGENS BY IA NR Automated blood complete blood count (he mogram) [...] INFLUENZA A AND B ANTIGENS BY IA BANNER Comprehensive metabolic panel - 06/15/19 12:00 Serum [...] or plasma urea nitrogen/creatinine mass ratio 20 NR Serum or plasma creatinine measurement w ith calculation of estimated glomerular filtration rate > NR Serum or plasma glucose measurement (mass/volume) 177 [...] TEXT ENTRY 2 CONTAMINATION WITH SKIN MELISSA NRG FREE TEXT ENTRY 3 NO SUSCEPTIBILTIY PERFORMED NRG Automated blood complete blood count (he mogram) [...] g/dL 3.2-4.5 CALCIUM CORRECTED 10.0 mg/dL 8.5-10.1 Complete blood count (CBC) with automate d white blood cell (WBC) differential - 09/04/19 12:30 Blood leukocytes automated count (number/volume) 3.8 10*3/uL 4.3-11.0 Blood erythrocytes automated count (number/volume) 3.66 10*6/uL 4.35-5.85 Venous blood hemoglobin measurement (mass/volume) [...] 10.0- 14.5 Automated blood platelet count (count/volume) 196 10*3/uL 130-400 Automated blood platelet mean volume measurement 8.7 [foz_us] 7.4-10.4 Automated blood neutrophils/100 leukocytes 76 % 42-75 Automated blood lymphocytes/100 leukocytes 15 % 12-44 Blood monocytes/100 leukocytes 7 % 0-12 Automated blood eosinophils/100 leukocytes 2 % 0-10 Automated blood basophils/100 leukocytes 0 % 0-10 Blood neutrophils automated count (number/volume) 2.9 10*3 1.8-7.8 Blood lymphocytes automated count (number/volume) 0.6 10*3 1.0-4.0 Blood monocytes automated count (number/volume) 0. 3 10*3 0.0-1.0 Automated eosinophil count 0.1 10*3/uL 0 .0-0.3 Automated blood basophil count (count/volume) 0.0 10*3/uL 0.0-0.1 PT panel in platelet poor plasma by coag ulation assay - 09/04/19 12:30 Prothrombin time (PT) in platelet poor plasma by coagu lation assay 13.6 s 12.2-14.7 INR in platelet poor plasma or blood by coagulation as say 1.0 0.8-1.4 Comprehensive metabolic panel - 09/04/19 12:30 Serum or plasma sodium measurement (moles/volume) 142 mmol/L 135-145 Serum or plasma potassium measurement (moles/volume) 3.5 mmol/L 3.6-5.0 Serum or plasma chloride measurement (moles/volume) 101 mmol/L 98-107 Carbon dioxide 27 mmol/L 21-32 Serum or plasma anion gap determination (moles/volume) 14 mmol/L 5-14 Serum or plasma urea nitrogen measurement (mass/volume ) 16 mg/dL 7-18 Serum or plasma creatinine measurement (mass/volume) 0.71 mg/dL 0.60-1.30 Serum or plasma urea nitrogen/creatinine mass ratio 23 NRG Serum or plasma creatinine measurement w ith calculation of estimated glomerular filtration rate > NRG Serum or plasma glucose measurement (mass/volume) 131 mg/dL 70-105 Serum or plasma calcium measurement (mass/volume) 9.5 mg/dL 8.5-10.1 Serum or plasma total bilirubin [...] measurement (mass/volume) 3.1 g/dL 3.2-4.5 CALCIUM CORRECTED 10.2 mg/dL 8.5-10.1 TROPONIN I FS - 09/04/19 12:30 TROPONIN I FS < 0.30 <0.30 PROBNP FS - 09/04/19 12:30 PROBNP FS 90.6 pg/mL <75.0 Complete urinalysis with reflex to cultu re - 09/04/19 14:40 Urine color determination YELLOW NRG Urine clarity determination CLEAR NR G Urine pH measurement by test strip 5.0 5-9 Specific gravity of urine by test strip > 1.016-1.022 Urine protein assay by test strip, [...] sediment by light microsco py FEW NRG Crystals detection in urine sediment by light microsco py PRESENT NRG Casts detection in urine sediment by light microscopy NONE NRG Mucus detection in urine sediment by light microscopy MODERATE NRG Complete urinalysis with reflex to culture YES NRG Calcium oxalate crystals detection in ur ine sediment by light microscopy FEW NRG Bacterial urine culture - 09/04/19 14:40 Bacterial urine culture [id number] NRG COLONY COUNT 10,000 CFU/ML NRG SUSCEPTIBILITY SUSCEPTIBILITY REPORTED 09/08/19 10:0 5 NRG RAPID ID PRELIM RAPID ID BY [facility] [id number] NRG ID CONFIRMATION ID CONFIRMED [id number] NRG Dirithromycin susceptibility test by dis k diffusion - 09/04/19 14:40 Gentamicin susceptibility test by minimum inhibitory c oncentration <= NRG Levofloxacin susceptibility test by minimum inhibitory concentration <= NRG Tobramycin susceptibility test by minimum inhibitory c oncentration <= NRG Piperacillin/tazobactam susceptibility t est by minimum inhibitory concentration = NRG Ciprofloxacin susceptibility test by minimum inhibitor y concentration <= NRG Meropenem susceptibility test by minimum inhibitory co ncentration 0.5 NRG Aztreonam susceptibility test by minimum inhibitory co ncentration 8 NRG Cefepime susceptibility test by minimum inhibitory con centration 2 NRG Imipenem susceptibility test by minimum inhibitory con centration 2 NRG Ceftazidime susceptibility test by minimum inhibitory concentration <= NRG Dirithromycin susceptibility test by dis k diffusion - 09/04/19 14:40 Gentamicin susceptibility test by minimum inhibitory c oncentration <= NRG Levofloxacin susceptibility test by minimum inhibitory concentration <= NRG Tobramycin susceptibility test by minimum inhibitory c oncentration <= NRG Piperacillin/tazobactam susceptibility t est by minimum inhibitory concentration = NRG Ciprofloxacin susceptibility test by minimum inhibitor y concentration <= NRG Meropenem susceptibility test by minimum inhibitory co ncentration <= NRG Aztreonam susceptibility test by minimum inhibitory co ncentration 4 NRG Cefepime susceptibility test by minimum inhibitory con centration 2 NRG Imipenem susceptibility test by minimum inhibitory con centration 1 NRG Ceftazidime susceptibility test by minimum inhibitory concentration <= NRG Capillary blood glucose measurement by g lucometer (mass/volume) - 09/04/19 21:30 Capillary blood glucose measurement by glucometer (mas s/volume) 115 mg/dL 70-110 Whole blood basic metabolic panel - 08/08 01/26 04:30 Serum or plasma sodium measurement (moles/volume) 141 mmol/L 135-145 Serum or plasma potassium measurement (moles/volume) 3.3 mmol/L 3.6-5.0 Serum or plasma chloride measurement (moles/volume) 108 mmol/L 98-107 Carbon dioxide 20 mmol/L 21-32 Serum or plasma anion gap determination (moles/volume) 13 mmol/L 5-14 Serum or plasma urea nitrogen measurement (mass/volume ) 13 mg/dL 7-18 Serum or plasma creatinine measurement (mass/volume) 0.67 mg/dL 0.60-1.30 Serum or plasma urea nitrogen/creatinine mass ratio 19 NRG Serum or plasma creatinine measurement w ith calculation of estimated glomerular filtration rate > NRG Serum or plasma glucose measurement (mass/volume) 101 mg/dL 70-105 Serum or plasma calcium measurement (mass/volume) 8.7 mg/dL 8.5-10.1 Magnesium - 09/05/19 04:30 Magnesium 1.3 mg/dL 1.6-2.4 Capillary blood glucose measurement by g lucometer (mass/volume) - 09/05/19 10:45 Capillary blood glucose measurement by glucometer (mas s/volume) 150 mg/dL 70-110 Encounters ACCT No. Visit Date/Time Discharge Status Pt. Type Provider Facility Loc./Unit Complaint [id number] 09/04/2019 16:40:00 04/29/2 020 14:45:00 DIS Outpatient ALEN MENDEZ, DEE DEE Dumont [facility] 4TH ORTHOSTATIC HYPOTENSION ,NEAR SYNCOPE,DECUBITUS ULC [id number] 08/20/2019 08:00:00 23:59:59 CLS Preadmit MATHEW GILMORE APRN [facility] RAD LEG SWELLING [id number] 07/17/2019 10:27:00 00:01:00 DIS Outpatient SARA MONCADA [facility] ONC [id number] 07/27/2019 11:00:00 23:59:59 CLS Outpatient OBINNA OSORIO [facility] SD DEHYDRATION,CHR ONIC LOW MAG [id number] 07/23/2019 13:45:00 23:59:59 CLS Outpatient CATALINA CHEN [facility] RAD DYSPNEA,CERVICA L CARCINOMA [id number] 07/18/2019 16:23:00 23:59:59 CLS Outpatient RUSSELL OSORIO DO [facility] LAB FS COUGH [id number] 07/18/2019 08:00:00 23:59:59 CLS Preadmit ABEBA SALAMANCA DO[facility] [id number] 07/17/2019 12:32:00 23:59:59 CLS Outpatient CATALINA CHENP [facility] RAD [id number] 07/12/2019 11:30:00 23:59:59 CLS Outpatient ABEBA SALAMANCA DO [facility] PREOP HISTORY OF CANCER [id number] 06/28/2019 14:13:00 23:59:59 CLS Outpatient OBINNA OSORIOP [facility] SD DEHYDRATION,CHR ONS LOW MG [id number] 06/25/2019 11:44:00 14:40:00 DIS Outpatient OBINNA OSORIO [employer] [facility] GASTROENTITIS,DEHYDRATION,UTI [id number] 06/15/2019 11:14:00 12:59:00 DIS Emergency ANGE MENDEZ DO [facility] ER FS VOMITING; DIARRHEA; HYPERGLYCEMIA; SOB [id number] 06/11/2019 14:25:00 23:59:59 CLS Outpatient OBINNA OSORIOP [facility] RAD CHRONIC AND OTH ER PULMONARY MANIFESTATIONS DUE TO [id number] 06/11/2019 10:50:00 23:59:59 CLS Preadmit MARIANNE QUIROS MD [facility] WOUNDCARE [id number] 06/11/2019 12:10:00 14:55:00 DIS Outpatient OBINNA OSORIOP [facility] LOW MG,DEHYDRAT ION [id number] 06/04/2019 15:20:00 18:44:00 DIS Emergency ROVENSTBINDU REYES DO [facility] ER FS SOA [id number] 05/28/2019 14:01:00 23:59:59 CLS Outpatient MARIANNE QUIROS MD [facility] WOUNDCARE [id number] 05/24/2019 12:56:00 16:10:00 DIS Outpatient OBINNA OSORIO [employer] [facility] DEHYDRATION,LOW MAGNESIUM [id number] 05/18/2019 11:32:00 15:50:00 DIS Outpatient OBINNA OSORIO [employer] [facility] TYPE 2 DIABETES,DEHYDRATION,LOW MAGNESIUM [id number] 03/01/2019 08:10:00 11:36:00 DIS Emergency KWASI PEREZ MD [facility] ER VAGINAL BLEEDING [id number] 02/28/2019 11:58:00 23:59:59 CLS Outpatient SHIRA GALVAN [facility] RAD POSTMENOPAUSAL BLEEDING [id number] 02/28/2019 13:56:00 17:27:00 DIS Emergency ANA MENDEZ, KWASI Michael [facility] ER ABNORMAL US [id number] 08/21/2019 00:00:00 Document Registration [id number] 07/21/2019 18:10:00 Document Registration
[2019-09-23] MEDS ORDERED: NS IV 500 ML 500 ML IV STA (11:54)
[2019-09-23] MEDS ORDERED: ONDANSETRON 4 MG/2 ML (SDV) Z0FRAN IVP ONE (12:00)
--- NOTE | 2019-09-23 12:00 | ED GI ---
General Chief Complaint: Abdominal/GI Problems Stated Complaint: ABD PAIN Nursing Triage Note: Patient reports abdomen pain with n/v/d Sepsis Screen: No Definite Risk Source of Information: Patient, EMS, EMS Notes Reviewed, RN/MD History of Present Illness Date Seen by Provider: September 23, 2019 Time Seen by Provider: 11:45 Initial Comments This patient is a 69-year-old female that presents to the emergency department with complaint of nausea vomiting diarrhea that started this morning. Patient states she woke up this morning feeling really nauseated and then vomited a little and/or dry heaves at least 10 times. Has had 5 loose stools. Patient states she just feels terrible. Patient states she ate some minestrone soup out of a can last night that didn't taste right. Patient states there was no difference in the can or any damage states he just wasn't same as normal. Patient does have a remote history of cervical cancer. But is not currently on any chemotherapy. We'll do medical evaluation treatment is needed.... EMS reportedly did start an IV fluid bolus give the patient 4mg of Zofran and 25 mg of fentanyl. We will give patient additional 4 mg of Zofran. Timing/Duration: 4-6 Hours Severity/Quality: Moderate Associated Symptoms: Nausea/Vomiting Allergies and Home Medications Allergies Coded Allergies: Penicillins (Verified Allergy, Severe, SOA, pt has received Ceftriaxone w/o issue, 09/05/19) ciprofloxacin (Verified Allergy, Severe, BURNING SENSATION, 09/04/19) Sulfa (Sulfonamide Antibiotics) (Verified Allergy, Unknown, 09/04/19) bacitracin (Verified Allergy, Unknown, 09/04/19) benazepril (Verified Allergy, Unknown, 09/04/19) Home Medications Ascorbic Acid 500 Mg Tablet, 500 MG PO DAILY, (Reported) Calcium Carbonate/Vitamin D3 1 Each Tablet, 1 EACH PO DAILY, (Reported) Carboxymethylcellulose Sodium 1 Each Droperette, 1-2 DROPS OU PRN PRN for DRY EYES, (Reported) Cefdinir 300 Mg Capsule, 300 MG PO BID Prescribed by: DEE DEE LOWRY on 09/05/19 1202 Cyanocobalamin (Vitamin B-12) 1,000 Mcg Tablet, 1,000 MCG PO DAILY, (Reported) Insulin Glargine,Hum.rec.anlog 100 Unit/1 Ml Insuln.pen, 15 UNIT SQ HS, (Reported) Loratadine 10 Mg Capsule, 10 MG PO DAILY, (Reported) Magnesium Oxide 250 Mg Tablet, 250 MG PO DAILY, (Reported) Patient Home Medication List Home Medication List Reviewed: Yes Review of Systems Review of Systems Constitutional: No no symptoms reported; see HPI; No chills, No diaphoresis, No dizziness, No fever, No malaise, No weakness, No weight gain, No weight loss, No other EENTM: No No Symptoms Reported, No See HPI, No Blurred Vision, No Double Vision, No Eye Pain, No Eye Tearing, No Ear Drainage, No Ear Pain, No Mouth Pain, No Mouth Swelling, No Nose Congestion, No Nose Pain, No Throat Pain, No Throat Swelling, No Other Respiratory: Denies No Symptoms Reported, Denies See HPI, Denies Cough, Denies Orthopnea, Denies Shortness of Air, Denies SOA With Exertion, Denies SOA at Rest, Denies Stridor, Denies Wheezing, Denies Other Cardiovascular: Denies No Symptoms Reported, Denies See HPI, Denies Chest Pain, Denies Edema, Denies Irregular Heart Rate, Denies Lightheadedness, Denies Palpitations, Denies Syncope, Denies Other Gastrointestinal: Denies No Symptoms Reported, Denies See HPI, Denies Abdomen Distended, Denies Abdominal Pain, Denies Blood Streaked Stools, Denies Constipated; Diarrhea; Denies Difficulty Swallowing; Nausea; Denies Poor Appetite, Denies Poor Fluid Intake, Denies Rectal Bleeding; Vomiting; Denies Other Genitourinary: Denies No Symptoms Reported, Denies See HPI, Denies Burning, D enies Discharge, Denies Drainage, Denies Frequency, Denies Flank Pain, Denies Hematuria, Denies Incontinence, Denies Pain, Denies Urgency, Denies Other Musculoskeletal: No no symptoms reported, No see HPI, No back pain, No gout, No joint pain, No joint swelling, No muscle pain, No muscle stiffness, No muscle cramps, No muscle twitching, No muscle weakness, No neck pain, No other Skin: No no symptoms reported, No see HPI, No change in color, No change in hair/nails, No dryness, No hx of skin cancer, No lesions, No lumps, No pruritus, No rash, No other All Other Systems Reviewed Negative Unless Noted: Yes Past Rwjedfh-Kapyva-Xizcot Hx Patient Social History Alcohol Use: Denies Use Recreational Drug Use: No Smoking Status: Never a Smoker 2nd Hand Smoke Exposure: No Recent Foreign Travel: No Contact w/Someone Who Travel: No Recent Infectious Disease Expo: No Recent Hopitalizations: No Seasonal Allergies Seasonal Allergies: Yes Past Medical History Surgeries: Yes (BRACHYTHERAPY-CERVIX ) Appendectomy, Gallbladder, Tonsillectomy Respiratory: No Cardiac: Yes Hypertension Neurological: Yes Traumatic Brain Injury Sexually Transmitted Disease: No HIV/AIDS: No Genitourinary: No Gastrointestinal: No Musculoskeletal: No Endocrine: Yes Diabetes, Insulin dep HEENT: No Cancer: Yes Cervical Did You Recieve Any Treatments: Yes What Type of Treatment Did You: Radiation Psychosocial: No Integumentary: No Blood Disorders: No Family Medical History Cardiovascular disease 19 FATHER Diabetes mellitus 19 FATHER G8 BROTHER Respiratory disorder 19 MOTHER Physical Exam Vital Signs Vital Signs - First Documented 09/23/19 11:37 Temp 36.6 Pulse 93 Resp 18 B/P (MAP) 124/65 (84) Pulse Ox 96 Capillary Refill : Less Than 3 Seconds Height/Weight/BMI Height: '" Weight: lbs. oz. kg; 25.00 BMI Method: General Appearance: WD/WN, no apparent distress, thin HEENT: PERRL/EOMI, normal ENT inspection, TMs normal, pharynx normal Neck: non-tender, full range of motion, supple, normal inspection Respiratory: chest non-tender, lungs clear, normal breath sounds, no respiratory distress, no accessory muscle use Cardiovascular: normal peripheral pulses, regular rate, rhythm, no edema, no gallop, no JVD, no murmur Gastrointestinal: normal bowel sounds, non tender, soft, no organomegaly, no pulsatile mass Extremities: normal range of motion, non-tender, normal inspection, no pedal edema, no calf tenderness, normal capillary refill Skin: normal color, warm/dry Progress/Results/Core Measures Results/Orders Lab Results Laboratory Tests Test 09/23/19 11:40 Range/Units White Blood Count 5.0 4.3-11.0 10^3/uL Red Blood Count 4.01 L 4.35-5.85 10^6/uL Hemoglobin 12.4 11.5-16.0 G/DL Hematocrit 38 35-52 % Mean Corpuscular Volume 94 80-99 FL Mean Corpuscular Hemoglobin 31 25-34 PG Mean Corpuscular Hemoglobin Concent 33 32-36 G/DL Red Cell Distribution Width 14.5 10.0-14.5 % Platelet Count 188 130-400 10^3/uL Mean Platelet Volume 9.0 7.4-10.4 FL Neutrophils (%) (Auto) 78 H 42-75 % Lymphocytes (%) (Auto) 18 12-44 % Monocytes (%) (Auto) 3 0-12 % Eosinophils (%) (Auto) 1 0-10 % Basophils (%) (Auto) 0 0-10 % Neutrophils # (Auto) 3.9 1.8-7.8 X 10^3 Lymphocytes # (Auto) 0.9 L 1.0-4.0 X 10^3 Monocytes # (Auto) 0.1 0.0-1.0 X 10^3 Eosinophils # (Auto) 0.1 0.0-0.3 10^3/uL Basophils # (Auto) 0.0 0.0-0.1 10^3/uL Sodium Level 142 135-145 MMOL/L Potassium Level 3.6 3.6-5.0 MMOL/L Chloride Level 100 98-107 MMOL/L Carbon Dioxide Level 26 21-32 MMOL/L Anion Gap 16 H 5-14 MMOL/L Blood Urea Nitrogen 15 7-18 MG/DL Creatinine 0.67 0.60-1.30 MG/DL Estimat Glomerular Filtration Rate > 60 BUN/Creatinine Ratio 22 Glucose Level 161 H 70-105 MG/DL Calcium Level 9.5 8.5-10.1 MG/DL Corrected Calcium 10.1 8.5-10.1 MG/DL Total Bilirubin 0.7 0.1-1.0 MG/DL Aspartate Amino Transf (AST/SGOT) 20 5-34 U/L Alanine Aminotransferase (ALT/SGPT) 5 0-55 U/L Alkaline Phosphatase 73 40-136 U/L Total Protein 7.1 6.4-8.2 GM/DL Albumin 3.3 3.2-4.5 GM/DL Amylase Level 49 25-125 U/L Lipase 8 8-78 U/L My Orders Orders - BONG MONROY MD Comprehensive Metabolic Panel (09/23/19 11:54) Lipase (09/23/19 11:54) Amylase (09/23/19 11:54) Ua Culture If Indicated (09/23/19 11:54) Ed Iv/Invasive Line Start (09/23/19 11:54) Acute Abd Series (09/23/19 11:54) Cbc With Automated Diff (09/23/19 11:54) Ondansetron Injection (Zofran Injectio (09/23/19 12:00) Ns Iv 500 Ml (Sodium Chloride 0.9%) (09/23/19 11:54) Medications Given in ED Current Medications Medications Dose Ordered Sig/Jorge A Route Start Time Stop Time Status Last Admin Dose Admin Ondansetron HCl 4 mg ONCE ONCE IVP 09/23/19 12:00 09/23/19 12:01 DC 09/23/19 11:59 4 MG Vital Signs/I&O 09/23/19 11:37 Temp 36.6 Pulse 93 Resp 18 B/P (MAP) 124/65 (84) Pulse Ox 96 Blood Pressure Mean: 84 Progress Progress Note : Time: 12:38 Progress Note Patient is feeling much improved after IV fluid bolus and Zofran. Did discuss at length with patient about findings of nausea vomiting diarrhea most likely related bacterial gastroenteritis. Patient is encouraged take Zofran as instructed. Continue with by mouth fluids encourage Pedialyte as needed. May take Pepto-Bismol as needed to help settle and slowdown diarrhea. Get plenty rest and follow-up with PCP. Patient states understanding Departure Impression Primary Impression: Nausea and vomiting Additional Impression: Diarrhea Disposition: 01 HOME, SELF-CARE Condition: Stable Departure-Patient Inst. Decision time for Depature: 12:39 Referrals: RUSSELL OSORIO DO (PCP) Primary Care Physician OBINNA OSORIO DNP (Family) Primary Care Physician Patient Instructions: Diarrhea in Adolescents and Adults, Food Poisoning (DC) Add. Discharge Instructions: Patient is encouraged take Zofran as instructed. Continue with by mouth fluids encourage Pedialyte as needed. May take Pepto-Bismol as needed to help settle and slowdown diarrhea. Get plenty rest and follow-up with PCP. Patient states understanding All discharge instructions reviewed with patient and/or family. Voiced understanding. Scripts Ondansetron (Ondansetron Odt) 4 Mg Tab.rapdis 4 MG PO BID for 7 Days, #10 TAB 0 Refills Prov: BONG MONROY MD 09/23/19 BONG MONROY MD September 23, 2019 12:00
[2019-09-23 12:07] LABS: HEMATOCRIT 38 % (35-52); HEMOGLOBIN 12.4 G/DL (11.5-16.0); MEAN CORPUSCULAR HEMOGLOBIN 31 PG (25-34); MEAN CORPUSCULAR HGB CONC 33 G/DL (32-36); MEAN CORPUSCULAR VOLUME 94 FL (80-99); NEUTROPHILS % (AUTO) 78 % (42-75); PLATELET COUNT 188 10^3/uL (130-400); RED CELL DISTRIBUTION WIDTH 14.5 % (10.0-14.5)
[2019-09-23 12:08] LABS: BASOPHILS % (AUTO) 0 % (0-10); EOSINOPHILS # (AUTO) 0.1 10^3/uL (0.0-0.3); EOSINOPHILS % (AUTO) 1 % (0-10); LYMPHOCYTES # (AUTO) 0.9 X 10^3 (1.0-4.0); LYMPHOCYTES % (AUTO) 18 % (12-44); MONOCYTES # (AUTO) 0.1 X 10^3 (0.0-1.0); MONOCYTES % (AUTO) 3 % (0-12); NEUTROPHILS # (AUTO) 3.9 X 10^3 (1.8-7.8)
[2019-09-23 12:21] LABS: CHLORIDE 100 MMOL/L (98-107); POTASSIUM 3.6 MMOL/L (3.6-5.0); SODIUM 142 MMOL/L (135-145)
[2019-09-23 12:22] LABS: ALANINE AMINOTRANSFERASE 5 U/L (0-55); ALBUMIN 3.3 GM/DL (3.2-4.5); ALKALINE PHOSPHATASE 73 U/L (40-136); AMYLASE 49 U/L (25-125); BILIRUBIN,TOTAL 0.7 MG/DL (0.1-1.0); BUN/CREATININE RATIO 22; CALCIUM 9.5 MG/DL (8.5-10.1); CARBON DIOXIDE 26 MMOL/L (21-32); CREATININE SERUM 0.67 MG/DL (0.60-1.30); GFR ESTIMATED > 60; GLUCOSE 161 MG/DL (70-105); LIPASE 8 U/L (8-78); TOTAL PROTEIN 7.1 GM/DL (6.4-8.2)
--- NOTE | 2019-09-23 12:26 | Diagnostic Imaging Report ---
INDICATION: Abdominal pain, cramping, diarrhea. COMPARISON: None. FINDINGS Acute abdominal series demonstrates stable cardiac enlargement. There is no free air under the diaphragm. The lungs are clear. Nonspecific nondilated air-fluid levels are seen throughout multiple bowel loops. There is no free air. There has been prior cholecystectomy. Suspect nonobstructive left renal calculus. IMPRESSION: Nonspecific air-fluid levels on the upright view. No overt distention or free air is identified. Dictated by: Dictated on workstation # [id number]
[2019-09-23] MEDS ORDERED: ONDA4TAB11 PO (12:41)
[2019-09-23 13:20] VITALS: BP 124/65
== END 2019-09-23 13:20 | disposition home or self-care (01) ==
LOC: EDUNIT# 11:30 → ER FS 11:31
DX: R19.7 Diarrhea, unspecified (principal); R11.2 Nausea with vomiting, unspecified; E11.9 Type 2 diabetes mellitus without complications; Z87.820 Personal history of traumatic brain injury; Z85.41 Personal history of malignant neoplasm of cervix uteri; Z88.0 Allergy status to penicillin; Z88.1 Allergy status to other antibiotic agents; Z88.2 Allergy status to sulfonamides; Z88.8 Allergy status to other drugs, medicaments and biological substances; Z79.4 Long term (current) use of insulin; Z82.49 Family history of ischemic heart disease and other diseases of the circulatory system
CPT/HCPCS: 36415; 74022; 80053; 82150; 83690; 85025; 96361; 96374

== ENCOUNTER 2019-09-29 09:36 | Emergency (ER) | payer MEDICARE, OTHER ==
[~2019-09-29] VITALS: Ht 165.1 cm; Wt 70.0 kg
--- OUTSIDE RECORDS SUMMARY | 2019-09-29 09:44 | XMS REPORT | Continuity of Care Document ---
Author Organization Unknown Address Unknown Phone Unavailable Allergies Active Description Code Type Severity Reaction Onset Reported/Identified Relationship to Patient Clinical Status Yes No Allergy Information Available [id number] Drug Allergy Unknown N/A 019 Yes ciprofloxacin [id number] Tramaine g Allergy Severe BURNING SENSATI 09/04/2019 Yes Penicillins [id number] Drug Aller gy Severe SOA 09/04/2019 Yes bacitracin [id number] Drug Allerg y Unknown N/A 09/04/2019 Yes benazepril [id number] Drug Allerg y Unknown N/A 09/04/2019 Yes Sulfa (Sulfonamide Antibiotics) [id number] Drug Allergy Unknown N/A 020 Yes Penicillins [id number] Drug Aller gy Severe SOA, pt has [...] KWASI PEREZ MD Ot Z01.411 ENCNTR FOR REHAB TECH EXAM (GENERAL) (ROUTINE) 02/28/2019 KWASI PEREZ MD [...] SHIRA GALVAN Ot Z01.4 11 ENCNTR FOR REHAB TECH EXAM (GENERAL) (ROUTINE) 03/05/2019 KWASI PEREZ MD [...] RENAL AND URETERAL C 03/06/2019 SHIRA GALVAN ADULT CAREGIVER Ot N88.8 OTHER SPECIFIED NONINFLAMMATORY DISORDER 03/06/2019 SHIRA GALVANP Ot N95.0 POSTMENOPAUSAL BLEEDING 03/06/2019 SHIRA GALVAN Ot R59.0 LOCALIZED ENLARGED LYMPH NODES 03/06/2019 SHIRA GALVAN Ot Z01.4 11 ENCNTR FOR REHAB TECH EXAM (GENERAL) (ROUTINE) 03/07/2019 KWASI PEREZ MD [...] KWASI PEREZ MD Ot Z01.411 ENCNTR FOR REHAB TECH EXAM (GENERAL) (ROUTINE) 03/20/2019 KWASI PEREZ MD [...] 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 OR AB 03/21/2019 SHIRA GALVAN ADULT CAREGIVER Ot N13.2 HYDRONEPHROSIS WITH RENAL AND URETERAL C 03/21/2019 SHIRA GALVANP Ot N88.8 OTHER SPECIFIED NONINFLAMMATORY DISORDER 03/21/2019 HSIRA GALVANP Ot N95.0 POSTMENOPAUSAL BLEEDING 03/21/2019 SHIRA GALVANP Ot R59.0 LOCALIZED ENLARGED LYMPH NODES 03/21/2019 SHIRA GALVANP Ot Z01.4 11 ENCNTR FOR REHAB TECH EXAM (GENERAL) (ROUTINE) 03/29/2019 KWASI PEREZ MD [...] KWASI PEREZ MD Ot Z01.411 ENCNTR FOR REHAB TECH EXAM (GENERAL) (ROUTINE) 03/29/2019 KWASI PEREZ MD [...] OF OTHER ORGANS 05/18/2019 LIYA OSORIORICIA L ADULT CAREGIVER Ot E11.69 TYPE 2 DIABETES MELLITUS WITH OTHER SPEC 05/18/2019 OSORIO OBINNA L ADULT CAREGIVER Ot E11.69 TYPE 2 DIABETES MELLITUS WITH OTHER SPEC 05/18/2019 OSORIO, OBINNA L ADULT CAREGIVER Ot D64.89 OTHER SPECIFIED ANEMIAS 05/18/2019 DEVON OBINNA L ADULT CAREGIVER Ot E11.69 TYPE 2 DIABETES MELLITUS WITH OTHER SPEC 05/18/2019 DEVON OBINNA L ADULT CAREGIVER Ot E83.42 HYPOMAGNESEMIA 05/18/2019 DEVON OBINNA L ADULT CAREGIVER Ot E86.0 DEHYDRATION 05/18/2019 DEVON OBINNA L ADULT CAREGIVER Ot R06.09 OTHER FORMS OF DYSPNEA 05/18/2019 DEVON OBINNA L ADULT CAREGIVER Ot E11.69 TYPE 2 DIABETES MELLITUS WITH OTHER SPEC 05/22/2019 SHIRA GALVAN ADULT CAREGIVER Ot K57.3 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 05/22/2019 SHIRA GALVAN ADULT CAREGIVER Ot N13.2 HYDRONEPHROSIS WITH RENAL AND URETERAL C 05/22/2019 SHIRA GALVAN ADULT CAREGIVER Ot N88.8 OTHER SPECIFIED NONINFLAMMATORY DISORDER 05/22/2019 SHIRA GALVANP Ot N95.0 POSTMENOPAUSAL BLEEDING 05/22/2019 SHIRA GALVANP Ot R59.0 LOCALIZED ENLARGED LYMPH NODES 05/22/2019 SHIRA GALVANP Ot Z01.4 11 ENCNTR FOR REHAB TECH EXAM (GENERAL) (ROUTINE) 05/24/2019 OBINNA OSORIO L ADULT CAREGIVER Ot E83.42 HYPOMAGNESEMIA 05/24/2019 OSORIO, OBINNA L ADULT CAREGIVER Ot E86.0 DEHYDRATION 05/24/2019 OSORIO, OBINNA L ADULT CAREGIVER Ot Z88.0 ALLERGY STATUS TO PENICILLIN 05/24/2019 OSORIO, OBINNA L ADULT CAREGIVER Ot Z88.2 ALLERGY STATUS TO SULFONAMIDES STATUS 05/26/2019 OSORIO, OBINNA L ADULT CAREGIVER Ot E83.42 HYPOMAGNESEMIA 05/26/2019 OSORIO, OBINNA L ADULT CAREGIVER Ot E86.0 DEHYDRATION 05/26/2019 OSORIO, OBINNA L ADULT CAREGIVER Ot Z88.0 ALLERGY STATUS TO PENICILLIN 05/26/2019 OSORIO, OBINNA L ADULT CAREGIVER Ot Z88.2 ALLERGY STATUS TO SULFONAMIDES STATUS 05/28/2019 OSORIO, OBINNA L ADULT CAREGIVER Ot E83.42 HYPOMAGNESEMIA 05/28/2019 OSORIO, OBINNA L ADULT CAREGIVER Ot E86.0 DEHYDRATION 05/28/2019 OSORIO, OBINNA L ADULT CAREGIVER Ot Z88.0 ALLERGY STATUS TO PENICILLIN 05/28/2019 OSORIO, OBINNA L ADULT CAREGIVER Ot Z88.2 ALLERGY STATUS TO SULFONAMIDES STATUS 05/30/2019 ISHAAN MENDEZ, MARIANNE Cunningham Ot D68.9 COAGULATION DEFECT, UNSPECIFIED 05/30/2019 ISHAAN MENDEZ, MARIANNE Cunningham Ot I 96 GANGRENE, NOT ELSEWHERE CLASSIFIED 05/30/2019 ISHAAN MENEDZ, MARIANNE Cunningham Ot L89.323 PRESSURE ULCER OF [...] HISTORY OF ANTINEOPLASTIC CHEMO 06/11/2019 OBINNA OSORIO ADULT CAREGIVER Ot E83.42 HYPOMAGNESEMIA 06/11/2019 OBINNA OSORIO ADULT CAREGIVER Ot E86.0 DEHYDRATION 06/11/2019 OBINNA OSORIO ADULT CAREGIVER Ot J70.1 CHRONIC AND OTHER PULMONARY MANIFESTATIO 06/11/2019 OBINNA OSORIO ADULT CAREGIVER Ot J90 PLEURAL EFFUSION, NOT ELSEWHERE CLASSIFI 06/12/2019 OBINNA OSORIO ADULT CAREGIVER Ot J70.1 CHRONIC AND OTHER PULMONARY MANIFESTATIO 06/12/2019 OBINNA OSORIO ADULT CAREGIVER Ot J90 PLEURAL EFFUSION, NOT ELSEWHERE CLASSIFI 06/12/2019 OBINNA OSORIO ADULT CAREGIVER Ot E83.42 HYPOMAGNESEMIA 06/12/2019 OBINNA OSORIO ADULT CAREGIVER Ot E86.0 DEHYDRATION 06/15/2019 MENDEZ DO, ANGE [...] TO OTH DRUG/MEDS/BIOL SUB 06/17/2019 OBINNA OSORIO ADULT CAREGIVER Ot E83.42 HYPOMAGNESEMIA 06/17/2019 OBINNA OSORIO ADULT CAREGIVER Ot E86.0 DEHYDRATION 06/19/2019 MENDEZ DO, ANGE [...] ANGE L Ot Z88.8 ALLERGY STATUS TO [facility] DRUG/MEDS/BIOL SUB 06/25/2019 OSORIO, OBINNA L ADULT CAREGIVER Ot E83.42 HYPOMAGNESEMIA 06/25/2019 OSORIO, OBINNA L ADULT CAREGIVER Ot E86.0 DEHYDRATION 06/25/2019 OSORIO, OBINNA L ADULT CAREGIVER Ot E87.6 HYPOKALEMIA 06/25/2019 OSORIO OBINNA L ADULT CAREGIVER Ot K52.9 NONINFECTIVE GASTROENTERITIS AND COLITIS 06/25/2019 OSORIO, OBINNA L ADULT CAREGIVER Ot N39.0 URINARY TRACT INFECTION, SITE NOT SPECIF 06/25/2019 OSORIO, OBINNA L ADULT CAREGIVER Ot R68.89 OTHER GENERAL SYMPTOMS AND SIGNS 06/25/2019 DEVON OBINNA L ADULT CAREGIVER Ot R68.89 OTHER GENERAL SYMPTOMS AND SIGNS 06/26/2019 ISHAAN MENDEZ, MARIANNE Cunningham Ot D68.9 COAGULATION DEFECT, UNSPECIFIED 06/26/2019 ISHAAN MENDEZ, MARIANNE Cunningham Ot I 96 GANGRENE, NOT ELSEWHERE CLASSIFIED 06/26/2019 ISHAAN MENDEZ, MARIANNE Cunningham Ot 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, STAGE 3 06/26/2019 ISHAAN MENDEZ, MARIANNE Cunningham Ot N39.0 URINARY TRACT INFECTION, SITE NOT SPECIF 06/26/2019 DEVON OBINNA L ADULT CAREGIVER Ot E83.42 HYPOMAGNESEMIA 06/26/2019 LIYA OSORIORICIA L ADULT CAREGIVER Ot E86.0 DEHYDRATION 06/26/2019 LIYA OSORIORICIA L ADULT CAREGIVER Ot E87.6 HYPOKALEMIA 06/26/2019 LIYA OSORIORICIA L ADULT CAREGIVER Ot K52.9 NONINFECTIVE GASTROENTERITIS AND COLITIS 06/26/2019 LIYA OSORIORICIA L ADULT CAREGIVER Ot N39.0 URINARY TRACT INFECTION, SITE NOT SPECIF 06/26/2019 OSORIO, OBINNA L ADULT CAREGIVER Ot R68.89 OTHER GENERAL SYMPTOMS AND SIGNS 06/28/2019 LIYA OSORIORICIA L ADULT CAREGIVER Ot E83.42 HYPOMAGNESEMIA 06/28/2019 OSORIO, OBINNA L ADULT CAREGIVER Ot E86.0 DEHYDRATION 06/28/2019 LIYA OSORIORICIA L ADULT CAREGIVER Ot J70.1 CHRONIC AND OTHER PULMONARY MANIFESTATIO 06/28/2019 WIL OSORIOIA L ADULT CAREGIVER Ot J90 PLEURAL EFFUSION, NOT ELSEWHERE CLASSIFI 06/29/2019 LIYA OSORIORICIA L ADULT CAREGIVER Ot E83.42 HYPOMAGNESEMIA 06/29/2019 OSORIO, OBINNA L ADULT CAREGIVER Ot E86.0 DEHYDRATION 07/03/2019 OSORIO, OBINNA L ADULT CAREGIVER Ot E83.42 HYPOMAGNESEMIA 07/03/2019 OSORIO, OBINNA L ADULT CAREGIVER Ot E86.0 DEHYDRATION 07/03/2019 SARA MONCADA Ot 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, [facility] 07/12/2019 [place] DO, ABEBA B Ot Z01.8 18 ENCOUNTER FOR OTHER PREPROCEDURAL EXAMIN 07/12/2019 [facility] DO, ABEBA B Ot Z01.8 18 ENCOUNTER FOR OTHER PREPROCEDURAL EXAMIN 07/12/2019 [facility], ABEBA B Ot Z01.8 18 ENCOUNTER FOR OTHER PREPROCEDURAL EXAMIN 07/13/2019 [facility] DO, ABEBA B Ot Z01.8 18 ENCOUNTER FOR OTHER PREPROCEDURAL EXAMIN 07/13/2019 LIYA OSORIORICIA L ADULT CAREGIVER Ot E83.42 HYPOMAGNESEMIA 07/13/2019 DEVON, OBINNA L ADULT CAREGIVER Ot E86.0 DEHYDRATION 07/16/2019 OSORIO, OBINNA L ADULT CAREGIVER Ot E83.42 HYPOMAGNESEMIA 07/16/2019 OSORIO, OBINNA L ADULT CAREGIVER Ot E86.0 DEHYDRATION 07/16/2019 DEVON, OBINNA L ADULT CAREGIVER Ot E83.42 HYPOMAGNESEMIA 07/16/2019 OSORIO, OBINNA L ADULT CAREGIVER Ot E86.0 DEHYDRATION 07/16/2019 OSORIO, OBINNA L ADULT CAREGIVER Ot E83.42 HYPOMAGNESEMIA 07/16/2019 OSORIO, OBINNA L ADULT CAREGIVER Ot E86.0 DEHYDRATION 07/16/2019 OSORIO, OBINNA L ADULT CAREGIVER Ot E83.42 HYPOMAGNESEMIA 07/16/2019 OSORIO, OBINNA L ADULT CAREGIVER Ot E86.0 DEHYDRATION 07/20/2019 CATALINA CHEN ADULT CAREGIVER Ot J 90 PLEURAL EFFUSION, NOT ELSEWHERE CLASSIFI 07/20/2019 RUSSELL OSORIO DO Ot R05 COUGH 07/24/2019 APRIL CATALINA S ADULT CAREGIVER Ot 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 07/24/2019 CHEN, CATALINA S ADULT CAREGIVER Ot J 90 PLEURAL EFFUSION, NOT ELSEWHERE CLASSIFI 07/24/2019 CHEN CATALINA S ADULT CAREGIVER Ot K43.9 VENTRAL HERNIA WITHOUT OBSTRUCTION OR GA 07/24/2019 APRIL HILAH S ADULT CAREGIVER Ot K57.3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 07/24/2019 APRIL CATALINA S ADULT CAREGIVER Ot N20.0 CALCULUS OF KIDNEY 07/24/2019 CHEN, HILAH S ADULT CAREGIVER Ot R06.00 DYSPNEA, UNSPECIFIED 07/24/2019 CHEN HILAH S ADULT CAREGIVER Ot R59.0 LOCALIZED ENLARGED LYMPH NODES 07/25/2019 Ot 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 07/26/2019 APRIL LUCYAH S ADULT CAREGIVER Ot 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 07/26/2019 APRIL CATALINA S ADULT CAREGIVER Ot J 90 PLEURAL EFFUSION, NOT ELSEWHERE CLASSIFI 07/26/2019 APRIL CATALINA S ADULT CAREGIVER Ot K43.9 VENTRAL HERNIA WITHOUT OBSTRUCTION OR GA 07/26/2019 APRIL CATALINA S ADULT CAREGIVER Ot K57.3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 07/26/2019 APRIL CATALINA S ADULT CAREGIVER Ot N20.0 CALCULUS OF KIDNEY 07/26/2019 APRIL CATALINA S ADULT CAREGIVER Ot R06.00 DYSPNEA, UNSPECIFIED 07/26/2019 APRIL CATALINA S ADULT CAREGIVER Ot R59.0 LOCALIZED ENLARGED LYMPH NODES 07/27/2019 OBINNA OSORIO ADULT CAREGIVER Ot E83.42 HYPOMAGNESEMIA 07/27/2019 OBINNA OSORIO L ADULT CAREGIVER Ot E86.0 DEHYDRATION 08/07/2019 RUSSELL OSORIO DO Ot R05 COUGH 08/07/2019 APRIL CATALINA S ADULT CAREGIVER Ot J 90 PLEURAL EFFUSION, NOT ELSEWHERE CLASSIFI 08/10/2019 MATHEW GILMORE APRN Ot M79.89 OTHER SPECIFIED SOFT TISSUE DISORDERS 08/14/2019 Ot 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 08/15/2019 CATALINA CHEN ADULT CAREGIVER Ot 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 08/15/2019 CATALINA CHEN ADULT CAREGIVER Ot J 90 PLEURAL EFFUSION, NOT ELSEWHERE CLASSIFI 08/15/2019 CATALINA CHEN ADULT CAREGIVER Ot K43.9 VENTRAL HERNIA WITHOUT OBSTRUCTION OR GA 08/15/2019 CATALINA CHEN ADULT CAREGIVER Ot K57.3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 08/15/2019 CATALINA CHEN ADULT CAREGIVER Ot N20.0 CALCULUS OF KIDNEY 08/15/2019 CATALINA CHEN ADULT CAREGIVER Ot R06.00 DYSPNEA, UNSPECIFIED 08/15/2019 CATALINA CHEN ADULT CAREGIVER Ot R59.0 LOCALIZED ENLARGED LYMPH NODES 08/20/2019 SARA MONCADA Ot 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 9 MALIGNANT NEOPLASM OF CERVIX UTERI, [facility] 09/05/2019 DEE DEE LOWRY MD Ot E11. [...] DEE DEE LOWRY MD Ot Z79. 4 INTERMEDIATE (CURRENT) USE OF INSULIN 09/05/2019 DEE DEE LOWRY MD, Ot Z87.820 PERSONAL HISTORY OF TRAUMATIC BRAIN INJU 09/05/2019 DEE DEE LOWRY MD, Ot Z90. 49 ACQUIRED ABSENCE OF OTHER SPECIFIED PART 09/05/2019 DEE DEE LOWRY MD, Ot Z90. 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 Results Test [...] culture - 02/28/19 14:50 Bacterial urine culture [id number] NRG COLONY COUNT >100,000/ML NRG FTX;REPORTABLE SUSCEPTIBILITY [...] pa esteban - 03/01/19 08:32 WRISTBAND NUMBER [id number] NRG ABO+Rh group AP NRG Blood group [...] A AND B ANTIGENS BY IA [facility] Automated blood complete blood count [...] INFLUENZA A AND B ANTIGENS BY IA NRG Comprehensive metabolic panel - 06/15/19 12:00 Serum [...] culture - 09/04/19 14:40 Bacterial urine culture [id number] NRG COLONY COUNT 10,000 CFU/ML NRG SUSCEPTIBILITY SUSCEPTIBILITY REPORTED 09/08/19 10:0 5 NRG RAPID ID PRELIM RAPID ID BY [facility] [phone] NRG ID CONFIRMATION ID CONFIRMED [id number] NRG Dirithromycin susceptibility test by dis k [...] by glucometer (mas s/volume) 150 mg/dL 70-110 Complete blood count (CBC) with automate d white blood cell (WBC) differential - 09/23/19 11:40 Blood leukocytes automated count (number/volume) 5.0 10*3/uL 4.3-11.0 Blood erythrocytes automated count (number/volume) 4.01 10*6/uL 4.35-5.85 Venous blood hemoglobin measurement (mass/volume) 12.4 g/dL 11.5-16.0 Blood hematocrit (volume fraction) 38 % 35-52 Automated erythrocyte mean corpuscular volume 94 [ foz_us] 80-99 Automated erythrocyte mean corpuscular h emoglobin (mass per erythrocyte) 31 pg 25-34 Automated erythrocyte mean corpuscular h emoglobin concentration measurement (mass/volume) 33 g/dL 32-36 Automated erythrocyte distribution width ratio 14. 5 % 10.0- 14.5 Automated blood platelet count (count/volume) 188 10*3/uL 130-400 Automated blood platelet mean volume measurement 9.0 [foz_us] 7.4-10.4 Automated blood neutrophils/100 leukocytes 78 % 42-75 Automated blood lymphocytes/100 leukocytes 18 % 12-44 Blood monocytes/100 leukocytes 3 % 0-12 Automated blood eosinophils/100 leukocytes 1 % 0-10 Automated blood basophils/100 leukocytes 0 % 0-10 Blood neutrophils automated count (number/volume) 3.9 10*3 1.8-7.8 Blood lymphocytes automated count (number/volume) 0.9 10*3 1.0-4.0 Blood monocytes automated count (number/volume) 0. 1 10*3 0.0-1.0 Automated eosinophil count 0.1 10*3/uL 0 .0-0.3 Automated blood basophil count (count/volume) 0.0 10*3/uL 0.0-0.1 Comprehensive metabolic panel - 09/23/19 11:40 Serum or plasma sodium measurement (moles/volume) 142 mmol/L 135-145 Serum or plasma potassium measurement (moles/volume) 3.6 mmol/L 3.6-5.0 Serum or plasma chloride measurement (moles/volume) 100 mmol/L 98-107 Carbon dioxide 26 mmol/L 21-32 Serum or plasma anion gap determination (moles/volume) 16 mmol/L 5-14 Serum or plasma urea nitrogen measurement (mass/volume ) 15 mg/dL 7-18 Serum or plasma creatinine measurement (mass/volume) 0.67 mg/dL 0.60-1.30 Serum or plasma urea nitrogen/creatinine mass ratio 22 NRG Serum or plasma creatinine measurement w ith calculation of estimated glomerular filtration rate > NRG Serum or plasma glucose measurement (mass/volume) 161 mg/dL 70-105 Serum or plasma calcium measurement (mass/volume) 9.5 mg/dL 8.5-10.1 Serum or plasma total bilirubin measurement (mass/volu me) 0.7 mg/dL 0.1-1.0 Serum or plasma alkaline phosphatase omar surement (enzymatic activity/volume) 73 U/L 40-136 Serum or plasma aspartate aminotransfera se measurement (enzymatic activity/volume) 20 U/L 5-34 Serum or plasma alanine aminotransferase measurement (enzymatic activity/volume) 5 U/L 0-55 Serum or plasma protein measurement (mass/volume) 7.1 g/dL 6.4-8.2 Serum or plasma albumin measurement (mass/volume) 3.3 g/dL 3.2-4.5 CALCIUM CORRECTED 10.1 mg/dL 8.5-10.1 Serum or plasma amylase measurement (enz ymatic activity/volume) - 09/23/19 11:40 Serum or plasma amylase measurement (enzymatic activit y/volume) 49 U/L 25-125 Lipase - 09/23/19 11:40 Lipase 8 U/L 8-78 Encounters ACCT No. Visit Date/Time Discharge Status Pt. Type Provider Facility Loc./Unit Complaint [id number] 09/23/2019 11:31:00 13:20:00 DIS Outpatient PORFIRIO MENDEZ, BONG Hawkins [facility] ER FS ABD PAIN [id number] 09/04/2019 16:40:00 14:45:00 DIS Outpatient ALEN MENDEZ, DEE DEE Dumont [facility] 4TH ORTHOSTATIC HYPOTENSION ,NEAR SYNCOPE,DECUBITUS ULC [id number] 08/20/2019 08:00:00 23:59:59 CLS Preadmit MATHEW GILMORE APRN [facility] RAD LEG SWELLING [id number] 07/17/2019 10:27:00 00:01:00 DIS Outpatient SARA MONCADA [facility] ONC [id number] 07/27/2019 11:00:00 23:59:59 CLS Outpatient OBINNA OSORIO [facility] DEHYDRATION,CHR ONIC LOW MAG [id number] 07/23/2019 13:45:00 23:59:59 CLS Outpatient CATALINA CHEN ADULT CAREGIVER [facility] RAD DYSPNEA,CERVICA L CARCINOMA [id number] 07/18/2019 16:23:00 23:59:59 CLS Outpatient RUSSELL OSORIO DO [facility] LAB FS COUGH [id number] 07/18/2019 08:00:00 23:59:59 CLS Preadmit ABEBA SALAMANCA DO [facility] HISTORY OF CANCER [id number] 07/17/2019 12:32:00 23:59:59 CLS Outpatient CHENCATALINA Sofia ADULT CAREGIVER [facility] RAD [id number] 07/12/2019 11:30:00 23:59:59 CLS Outpatient ABEBA SALAMANCA DO [facility] PREOP HISTORY OF CANCER [id number] 06/28/2019 14:13:00 23:59:59 CLS Outpatient OBINNA OSORIO [facility] DEHYDRATION,CHR ONS LOW MG [id number] 06/25/2019 11:44:00 14:40:00 DIS Outpatient OBINNA OSORIO [facility] GASTROENTITIS,DEHYDRATION,UTI [id number] 06/15/2019 11:14:00 12:59:00 DIS Emergency MENDEZ ANGE JASON [facility] ER FS VOMITING; DIARRHEA; HYPERGLYCEMIA; SOB [id number] 06/11/2019 14:25:00 23:59:59 CLS Outpatient OBINNA OSORIO [facility] RAD CHRONIC AND OTH ER PULMONARY MANIFESTATIONS DUE TO [id number] 06/11/2019 10:50:00 23:59:59 CLS Preadmit MARIANNE QUIROS MD [facility] WOUNDCARE [id number] 06/11/2019 12:10:00 14:55:00 DIS Outpatient OBINNA OSORIO ADULT CAREGIVER [facility] LOW MG,DEHYDRAT ION [id number] 06/04/2019 15:20:00 18:44:00 DIS Emergency ROVENSTINE BINDU JASON [facility] ER FS SOA [id number] 05/28/2019 14:01:00 23:59:59 CLS Outpatient MARIANNE QUIROS MD [facility] WOUNDCARE [id number] 05/24/2019 12:56:00 16:10:00 DIS Outpatient OSORIO, OBINNA L ADULT CAREGIVER [facility] DEHYDRATION,LOW MAGNESIUM [id number] 05/18/2019 11:32:00 15:50:00 DIS Outpatient OBINNA OSORIO [facility] TYPE 2 DIABETES,DEHYDRATION,LOW MAGNESIUM [id number] 03/01/2019 08:10:00 11:36:00 DIS Emergency KWASI PEREZ MD [facility] ER VAGINAL BLEEDING [id number] 02/28/2019 11:58:00 23:59:59 CLS Outpatient SHIRA GALVAN [facility] RAD POSTMENOPAUSAL BLEEDING [id number] 02/28/2019 13:56:00 17:27:00 DIS Emergency KWASI PEREZ MD [facility] ER ABNORMAL US [id number] 08/21/2019 00:00:00 Document Registration [id number] 07/21/2019 18:10:00 Document Registration
[2019-09-29] MEDS ORDERED: NS IV 1000 ML 1,000 ML IV STA (10:05)
--- NOTE | 2019-09-29 10:14 | ED Abdominal Pain ---
General Chief Complaint: Abdominal/GI Problems Stated Complaint: ABD PROTRUSION Nursing Triage Note: Patient presents to the ED with c/o firm left quadrant abdominal protusion. She states that she always has the protrusion but it is generally soft and today it was firm and she has a burning sensation in it. She reports that she was seen last week for nausea, vomiting, and diarrhea and has not had a bowel movement since Tuesday. Sepsis Screen: No Definite Risk Source of Information: Patient Exam Limitations: No Limitations History of Present Illness Date Seen by Provider: September 29, 2019 Time Seen by Provider: 09:58 Initial Comments 69-year-old female presents to the emergency room with right upper quadrant discomfort and pain. She has a mass protruding on her right upper quadrant which is most likely a incisional hernia secondary to gallbladder surgery in 1975. Patient states that she normally has a protrusion in that area but today it was firm and had a burning sensation. She was seen last week for nausea and vomiting and diarrhea has not had a bowel movement since Tuesday patient appears to have an incarcerated hernia. Patient also has a history of uterine/cervical cancer and finished chemotherapy late 2018. She had a PET scan in May 2019 which was negative. Patient does have an acute abdominal series dated on 09/23/19 which shows nonspecific air-fluid levels on the upright no overt distention or free air identified she did have a CT scan on July 23, 2019 which revealed bilateral nephrolithiasis previously seen and per prior studies. She also has a right anterolateral abdominal wall hernia with portions of her ascending colon no bowel obstruction or strangulation as identified on that assessment. She has uncomplicated diverticulosis of the sigmoid and she has significant improvement of her pelvic lymphadenopathy when compared to February 2019 study. Patient has given informed consent for diagnostic and therapeutic services. She was scheduled for a port insertion on July 18, 2019 but this was delayed because the coronavirus epidemic. Patient will be kept nothing by mouth and given hydration. Basic lab evaluation including blood cultures and lactic acid have been ordered. Patient appears to have an obstruction secondary to an incarcerated or partially incarcerated right upper quadrant abdominal hernia. This dictation utilizes [employer] software. Efforts have been made to review the entire dictation and correct all errors. Some errors or able to penetrate the review process. This is not an intentional event. If there is any questions regarding this dictation please contact Ryland Chacko [phone]. Timing/Duration: 12 Hours Severity/Quality: Moderate Location: RUQ (history of hernia in the past but now has firmness nausea vomiting no stool for the past 6 days.) Radiation: Back Activities at Onset: Rest Modifying Factors: Improves With Eating, Improves With Movement Associated Symptoms: Back Pain, Nausea/Vomiting, Swelling/Mass in Abdomen (obvious mass with a descending colon in the hernia sac) Allergies and Home Medications Allergies Coded Allergies: Penicillins (Verified Allergy, Severe, SOA, pt has received Ceftriaxone w/o issue, 09/05/19) ciprofloxacin (Verified Allergy, Severe, BURNING SENSATION, 09/04/19) Sulfa (Sulfonamide Antibiotics) (Verified Allergy, Unknown, 09/04/19) bacitracin (Verified Allergy, Unknown, 09/04/19) benazepril (Verified Allergy, Unknown, 09/04/19) Home Medications Ascorbic Acid 500 Mg Tablet, 500 MG PO DAILY, (Reported) Calcium Carbonate/Vitamin D3 1 Each Tablet, 1 EACH PO DAILY, (Reported) Carboxymethylcellulose Sodium 1 Each Droperette, 1-2 DROPS OU PRN PRN for DRY EYES, (Reported) Cefdinir 300 Mg Capsule, 300 MG PO BID Prescribed by: DEE DEE LOWRY on 09/05/19 1202 Cyanocobalamin (Vitamin B-12) 1,000 Mcg Tablet, 1,000 MCG PO DAILY, (Reported) Insulin Glargine,Hum.rec.anlog 100 Unit/1 Ml Insuln.pen, 15 UNIT SQ HS, (Reported) Loratadine 10 Mg Capsule, 10 MG PO DAILY, (Reported) Magnesium Oxide 250 Mg Tablet, 250 MG PO DAILY, (Reported) Ondansetron 4 Mg Tab.rapdis, 4 MG PO BID Prescribed by: BONG MONROY on 09/23/19 1241 Patient Home Medication List Home Medication List Reviewed: Yes Review of Systems Review of Systems Constitutional: see HPI, malaise, weakness, other (abdominal pain nausea and constipation) EENTM: See HPI, Other (some missing teeth and dry mucous membranes) Respiratory: No Symptoms Reported (but has an intermittent cough no shortness of breath no fever) Cardiovascular: No Symptoms Reported, See HPI Gastrointestinal: See HPI, Abdominal Pain (right upper quadrant discomfort palpated mass with stool in the hernia sac most likely ascending colon), Constipated, Other (possible incarcerated hernia right upper quadrant) Genitourinary: No Symptoms Reported, See HPI, Other (patient has a history of cervical cancer treated with chemotherapy ) Musculoskeletal: see HPI, back pain, muscle stiffness, muscle weakness, other (patient's feels weak and has back spasms) Skin: no symptoms reported, see HPI Psychiatric/Neurological: See HPI, Anxiety (in regard to pain and concern about prior cancer treatment) Endocrine: No Symptoms Reported Hematologic/Lymphatic: No Symptoms Reported (but does have a pallor and has been treated with chemotherapy), Anemia Past Xblnybo-Anhcaj-Dfazqf Hx Past Med/Social Hx: Reviewed Nursing Past Med/Soc Hx Patient Social History Alcohol Use: Denies Use Recreational Drug Use: No Smoking Status: Never a Smoker 2nd Hand Smoke Exposure: No Recent Foreign Travel: No Contact w/Someone Who Travel: No Recent Infectious Disease Expo: No Recent Hopitalizations: No Physical Abuse: No Sexual Abuse: No Mistreated: No Fear: No Seasonal Allergies Seasonal Allergies: Yes Past Medical History Surgeries: Yes (BRACHYTHERAPY-CERVIX ) Appendectomy, Gallbladder, Tonsillectomy Respiratory: No Cardiac: Yes Hypertension Neurological: Yes Traumatic Brain Injury Sexually Transmitted Disease: No HIV/AIDS: No Genitourinary: No Gastrointestinal: No Musculoskeletal: No Endocrine: Yes Diabetes, Insulin dep HEENT: No Cancer: Yes Cervical Did You Recieve Any Treatments: Yes What Type of Treatment Did You: Radiation Psychosocial: No Integumentary: No Blood Disorders: No Family Medical History Reviewed Nursing Family Hx Cardiovascular disease 19 FATHER Diabetes mellitus 19 FATHER G8 BROTHER Respiratory disorder 19 MOTHER Physical Exam Vital Signs Vital Signs - First Documented 09/29/19 09:44 Temp 36.6 Pulse 94 Resp 17 B/P (MAP) 157/70 (99) Pulse Ox 96 O2 Delivery Room Air Capillary Refill : Less Than 3 Seconds Height/Weight/BMI Height: '" Weight: lbs. oz. kg; 25.00 BMI Method: General Appearance: moderate distress (from right upper quadrant pain and concern of "something is wrong") HEENT: PERRL/EOMI, normal ENT inspection, pharynx normal, other (dry mucous membranes and missing teeth with partial plate on the maxillary ridge) Neck: non-tender, full range of motion, supple, normal inspection Respiratory: chest non-tender, lungs clear (deep breathing and has mild inspiratory rales in the posterior bases that clear with deep breathing), normal breath sounds, no respiratory distress (does have pain in the right upper quadrant with deep breathing), no accessory muscle use Cardiovascular: normal peripheral pulses, regular rate, rhythm, no edema, no gallop, no JVD Peripheral Pulses: 2+ Carotid (R), 2+ Carotid (L) Gastrointestinal: soft (but obvious pieces of hard stool in the ascending colon in the hernia sac), no organomegaly (history of cervical cancer treated and had prior history of lymphadenopathy), abnormal bowel sounds (decrease), distended (and stool in the right upper quadrant hernia sac palpated), tenderness, other (stool in the right upper quadrant hernia sac is palpated) Extremities: normal range of motion (for age with DJD), non-tender, normal insp ection, no pedal edema, no calf tenderness Back: normal inspection, decreased range of motion, vertebral tenderness (paraspinal tenderness in the lower thoracic spine right paraspinal areas) Pelvic: normal external exam (diffuse discomfort in the lower abdomen secondary to possible all obstruction) 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, no motor/sensory deficits, alert, normal mood/affect, oriented x 3, motor weakness Skin: normal color, warm/dry Lymphatic: no adenopathy (but history of lymphadenopathy in the intra-abdominal area on CT scan in July 2019) Focused Exam Lactate Level 09/29/19 10:15: Lactic Acid Level 1.81 Lactic Acid Level Laboratory Tests Test 09/29/19 10:15 Lactic Acid Level 1.81 MMOL/L (0.50-2.00) Progress/Results/Core Measures Results/Orders Lab Results Laboratory Tests Test 09/29/19 10:00 09/29/19 10:15 09/29/19 10:40 Range/Units White Blood Count 3.5 L 4.3-11.0 10^3/uL Red Blood Count 4.00 L 4.35-5.85 10^6/uL Hemoglobin 12.4 11.5-16.0 G/DL Hematocrit 37 35-52 % Mean Corpuscular Volume 92 80-99 FL Mean Corpuscular Hemoglobin 31 25-34 PG Mean Corpuscular Hemoglobin Concent 34 32-36 G/DL Red Cell Distribution Width 14.4 10.0-14.5 % Platelet Count 212 130-400 10^3/uL Mean Platelet Volume 8.6 7.4-10.4 FL Neutrophils (%) (Auto) 76 H 42-75 % Lymphocytes (%) (Auto) 15 12-44 % Monocytes (%) (Auto) 6 0-12 % Eosinophils (%) (Auto) 3 0-10 % Basophils (%) (Auto) 0 0-10 % Neutrophils # (Auto) 2.6 1.8-7.8 X 10^3 Lymphocytes # (Auto) 0.5 L 1.0-4.0 X 10^3 Monocytes # (Auto) 0.2 0.0-1.0 X 10^3 Eosinophils # (Auto) 0.1 0.0-0.3 10^3/uL Basophils # (Auto) 0.0 0.0-0.1 10^3/uL Prothrombin Time 13.3 12.2-14.7 SEC INR Comment 1.0 0.8-1.4 Activated Partial Thromboplast Time 26 24-35 SEC Sodium Level 139 135-145 MMOL/L Potassium Level 3.1 L 3.6-5.0 MMOL/L Chloride Level 99 98-107 MMOL/L Carbon Dioxide Level 28 21-32 MMOL/L Anion Gap 12 5-14 MMOL/L Blood Urea Nitrogen 13 7-18 MG/DL Creatinine 0.67 0.60-1.30 MG/DL Estimat Glomerular Filtration Rate > 60 BUN/Creatinine Ratio 19 Glucose Level 160 H 70-105 MG/DL Calcium Level 9.2 8.5-10.1 MG/DL Corrected Calcium 9.8 8.5-10.1 MG/DL Magnesium Level 1.3 L 1.6-2.4 MG/DL Total Bilirubin 0.7 0.1-1.0 MG/DL Aspartate Amino Transf (AST/SGOT) 17 5-34 U/L Alanine Aminotransferase (ALT/SGPT) 6 0-55 U/L Alkaline Phosphatase 62 40-136 U/L Total Protein 7.0 6.4-8.2 GM/DL Albumin 3.3 3.2-4.5 GM/DL Lactic Acid Level 1.81 0.50-2.00 MMOL/L Urine Color DARK YELLOW Urine Clarity SL CLOUDY Urine pH 5.5 5-9 Urine Specific [place] >=1.030 1.016-1.022 Urine Protein 1+ H NEGATIVE Urine Glucose (UA) NEGATIVE NEGATIVE Urine Ketones TRACE H NEGATIVE Urine Nitrite NEGATIVE NEGATIVE Urine Bilirubin 1+ H NEGATIVE Urine Urobilinogen 1.0 < = 1.0 MG/DL Urine Leukocyte Esterase 1+ H NEGATIVE Urine RBC (Auto) 2+ H NEGATIVE Urine RBC 10-25 H /HPF Urine WBC 50-100 H /HPF Urine Squamous Epithelial Cells RARE /HPF Urine Crystals PRESENT H /LPF Urine Calcium Oxalate Crystals FEW H /LPF Urine Bacteria FEW H /HPF Urine Casts PRESENT /LPF Urine Hyaline Casts 10-25 H /LPF Urine Granular Casts 0-2 H /LPF Urine Mucus LARGE H /LPF Urine Culture Indicated YES My Orders Orders - RYLAND CHACKO DO Comprehensive Metabolic Panel (09/29/19 10:00) Cbc With Automated Diff (09/29/19 10:00) Ct Abdomen/Pelvis Wo (09/29/19 10:05) Ns Iv 1000 Ml (Sodium Chloride 0.9%) (09/29/19 10:05) Nothing By Mouth (09/29/19 Dinner) Urinalysis (09/29/19 10:05) Magnesium (09/29/19 10:05) Lactic Acid Analyzer (09/29/19 10:05) Blood Culture (09/29/19 10:05) Ekg Tracing (09/29/19 10:21) Partial Thromboplastin Time (09/29/19 10:21) Protime With Inr (09/29/19 10:21) Chest 1 View Ap/Pa Only (09/29/19 10:21) Urine Culture (09/29/19 10:40) Potassium Chloride (Tablet) (K Dur Table (09/29/19 12:00) Magnesium 1 Gm/100 Ml Ivpb (Magnesium Zaidi (09/29/19 12:00) Medications Given in ED Current Medications Medications Dose Ordered Sig/Jorge A Route Start Time Stop Time Status Last Admin Dose Admin Magnesium Sulfate/ Dextrose 100 ml @ 100 mls/hr ONCE ONCE IV 09/29/19 12:00 09/29/19 12:59 09/29/19 11:57 100 MLS/HR Vital Signs/I&O 09/29/19 09:44 Temp 36.6 Pulse 94 Resp 17 B/P (MAP) 157/70 (99) Pulse Ox 96 O2 Delivery Room Air Blood Pressure Mean: 99 Progress Progress Note : Time: 11:46 Progress Note She was able to walk to the bathroom and back. She does have her laboratory evaluation completed hemoglobin is 12.4 WBC 3.5 glucose 160 she is hypokalemic with a potassium of 3.1 and a low magnesium of 1.3. Urinalysis has a leukocyte esterase of 1+ WBC 50-100 rbc's 10-25 PT is 13.3 INR 1.0 PTT is 26 chest x-ray shows COPD and CT scan shows the right upper quadrant hernia nonobstructive with particular ascending colon in the hernia sac. Patient has diffuse gas pattern no sign of obstruction she does have a larged renal pelvic stone impression is: IMPRESSION: 1. Prominent ventral hernia in the right upper quadrant containing a loop of colon. This appears similar compared to the prior exam. No evidence of obstruction. No associated soft tissue mass is seen in this region. 2. Large calculus in the left renal pelvis measuring 1.9 cm with increased mild to moderate hydronephrosis on the left. Additional nonobstructing calculi are seen bilaterally. Patient will be discharged in satisfactory condition hydrated she will be given additional potassium and magnesium prior to discharge. A she was informed of her hypokalemia 3.1 and offered 20 mEq of potassium chloride she refused and states that she has potassium solution at home and will drink that. Patient did accept the 1 g of magnesium given IV and local home after that. Hydration and normalization of her bowel movements have been s trongly advised. She'll softener is needed for patient to continue to move her bowels through with a hernia. Initial ECG Impression Date: September 29, 2019 Initial ECG Impression Time: 10:40 Initial ECG Rate: 105 Initial ECG Rhythm: S.Tach (heart rate of [address] changes) Initial ECG Intervals: Normal Initial ECG Impression: Nonspecific Changes Initial ECG Comparisson: No Previous ECG Available Departure Impression Primary Impression: Calculus of kidney Additional Impressions: Abdominal wall pain Abdominal pain Constipation Hypokalemia Hypomagnesemia Disposition: 01 HOME, SELF-CARE Condition: Improved Departure-Patient Inst. Decision time for Depature: 12:22 Referrals: RUSSELL OSORIO DO (PCP) Primary Care Physician OBINNA OSORIO, RAMAN (Family) Primary Care Physician Patient Instructions: Dehydration, Adult (DC), Kidney Stones in Adults, Low Magnesium Level (DC), Kidney Stones (DC), Urinary Tract Infection, Adult (DC), High Potassium Diet Copy Copies To 1: RUSSELL OSORIO ANTHONY H DO September 29, 2019 10:14
[2019-09-29 10:19] LABS: EOSINOPHILS % (AUTO) 3 % (0-10); HEMATOCRIT 37 % (35-52); HEMOGLOBIN 12.4 G/DL (11.5-16.0); MEAN CORPUSCULAR HEMOGLOBIN 31 PG (25-34); MEAN CORPUSCULAR HGB CONC 34 G/DL (32-36); MEAN CORPUSCULAR VOLUME 92 FL (80-99); MEAN PLATELET VOLUME 8.6 FL (7.4-10.4); MONOCYTES % (AUTO) 6 % (0-12); PLATELET COUNT 212 10^3/uL (130-400); RED CELL DISTRIBUTION WIDTH 14.4 % (10.0-14.5); WHITE BLOOD COUNT 3.5 10^3/uL (4.3-11.0)
[2019-09-29 10:20] LABS: BASOPHILS % (AUTO) 0 % (0-10); EOSINOPHILS # (AUTO) 0.1 10^3/uL (0.0-0.3); LYMPHOCYTES # (AUTO) 0.5 X 10^3 (1.0-4.0); LYMPHOCYTES % (AUTO) 15 % (12-44); MONOCYTES # (AUTO) 0.2 X 10^3 (0.0-1.0); NEUTROPHILS # (AUTO) 2.6 X 10^3 (1.8-7.8); NEUTROPHILS % (AUTO) 76 % (42-75)
[2019-09-29 10:37] LABS: CARBON DIOXIDE 28 MMOL/L (21-32); CHLORIDE 99 MMOL/L (98-107); POTASSIUM 3.1 MMOL/L (3.6-5.0); SODIUM 139 MMOL/L (135-145)
[2019-09-29 10:38] LABS: ALANINE AMINOTRANSFERASE 6 U/L (0-55); ALBUMIN 3.3 GM/DL (3.2-4.5); ALKALINE PHOSPHATASE 62 U/L (40-136); BILIRUBIN,TOTAL 0.7 MG/DL (0.1-1.0); BUN/CREATININE RATIO 19; CALCIUM 9.2 MG/DL (8.5-10.1); CREATININE SERUM 0.67 MG/DL (0.60-1.30); GFR ESTIMATED > 60; GLUCOSE 160 MG/DL (70-105); MAGNESIUM 1.3 MG/DL (1.6-2.4)
[2019-09-29 10:41] LABS: PROTHROMBIN TIME PATIENT 13.3 SEC (12.2-14.7)
--- NOTE | 2019-09-29 10:55 | Diagnostic Imaging Report ---
EXAMINATION: Chest 1 view HISTORY: Chest pain. COMPARISON: Chest radiograph on 09/23/2019. FINDINGS: The lung volumes are hyperexpanded. No focal consolidation is seen. No large pleural effusion or pneumothorax is seen. The cardiomediastinal silhouette is normal in size and contour. No acute osseous abnormality is seen. IMPRESSION: 1. Hyperexpanded lungs, which can be seen with COPD. No focal consolidation or pleural effusion. Dictated by: Dictated on workstation # [id number]
[2019-09-29 11:01] LABS: CLARITY,URINE SL CLOUDY; COLOR,URINE DARK YELLOW; GLUCOSE, URINE (UA) NEGATIVE (NEGATIVE); KETONES,URINE TRACE (NEGATIVE); NITRITE,URINE NEGATIVE (NEGATIVE); PH,URINE 5.5 (5-9); PROTEIN,URINE 1+ (NEGATIVE)
[2019-09-29 11:02] LABS: BACTERIA,URINE FEW /HPF; BILIRUBIN,URINE 1+ (NEGATIVE); CALCIUM OXALATE CRYSTALS,UR FEW /LPF; GRANULAR CASTS,URINE 0-2 /LPF; LEUKOCYTE ESTERASE ,URINE 1+ (NEGATIVE); SQUAMOUS EPITHELIAL CELL,UR RARE /HPF; WBC,URINE 50-100 /HPF
--- NOTE | 2019-09-29 11:06 | Diagnostic Imaging Report ---
PROCEDURE: CT abdomen and pelvis without contrast. TECHNIQUE: Multiple contiguous axial images were obtained through the abdomen and pelvis without the use of intravenous contrast. Auto Exposure Controls were utilized during the CT exam to meet ALARA standards for radiation dose reduction. INDICATION: Right abdominal nodule. COMPARISON: 07/23/2019. FINDINGS: The heart is unremarkable. The included lung bases are clear. A prominent ventral hernia is again seen in the right upper quadrant containing a loop of colon. No evidence of bowel obstruction is seen. A moderate amount of stool is seen in the colon. No free fluid or free air. A prominent calculus is seen in the left renal pelvis measuring 1.9 cm. This is increased in size compared to the prior exam. There has also been interval increase in mild to moderate hydronephrosis on the left. Additional nonobstructing calculi are seen in the kidneys bilaterally. No evidence of hydronephrosis is seen on the right. The urinary bladder is decompressed. No evidence of bladder calculi. The pancreas has an atrophic appearance. No focal pancreatic lesions or peripancreatic inflammatory changes are seen. The liver, spleen, and adrenal glands have a normal noncontrast CT appearance. There is no pathologically enlarged mesenteric or retroperitoneal adenopathy. No acute fracture or dislocation is seen in the included osseous structures. There is no free air, loculated collection, or adenopathy in the pelvis. IMPRESSION: 1. Prominent ventral hernia in the right upper quadrant containing a loop of colon. This appears similar compared to the prior exam. No evidence of obstruction. No associated soft tissue mass is seen in this region. 2. Large calculus in the left renal pelvis measuring 1.9 cm with increased mild to moderate hydronephrosis on the left. Additional nonobstructing calculi are seen bilaterally. Dictated by: Dictated on workstation # [id number]
[2019-09-29] MEDS ORDERED: MAGNESIUM 1 GM/100 ML IVPB 100 ML IV ONE (12:00)
[2019-09-29] MEDS ORDERED: KCL 20 MEQ TAB (K-DUR) PO ONE (12:00)
[2019-09-29] MEDS ORDERED: CEPH-506 PO (12:48)
[2019-09-29 12:53] VITALS: BP 157/70
== END 2019-09-29 12:53 | disposition home or self-care (01) ==
LOC: EDUNIT# 09:36 → ER FS 09:39
DX: N13.2 Hydronephrosis with renal and ureteral calculous obstruction (principal); K59.00 Constipation, unspecified; E87.6 Hypokalemia; E83.42 Hypomagnesemia; E11.9 Type 2 diabetes mellitus without complications; Z85.41 Personal history of malignant neoplasm of cervix uteri; Z88.0 Allergy status to penicillin; Z88.2 Allergy status to sulfonamides; Z88.1 Allergy status to other antibiotic agents; Z88.8 Allergy status to other drugs, medicaments and biological substances; Z79.4 Long term (current) use of insulin; Z87.820 Personal history of traumatic brain injury; Z82.49 Family history of ischemic heart disease and other diseases of the circulatory system
CPT/HCPCS: 36415; 71045; 74176; 80053; 81000; 83605; 83735; 85025; 85610; 85730; 87040; 87088; 93005

== ENCOUNTER 2019-10-02 18:30 | Emergency (ER) | payer MEDICARE, OTHER ==
[~2019-10-02] VITALS: Ht 165 cm; Wt 69.0 kg
[~2019-10-02 18:30] MED LIST changes: +CEPH-506 PO
[2019-10-02] MEDS ORDERED: NS IV 1000 ML 1,000 ML IV SCH (18:45)
--- NOTE | 2019-10-02 18:54 | ED GI ---
General Chief Complaint: Abdominal/GI Problems Stated Complaint: ABD PAIN, CONSTIPATION Source of Information: Patient Exam Limitations: No Limitations History of Present Illness Date Seen by Provider: October 02, 2019 Time Seen by Provider: 16:35 Initial Comments To ER by private vehicle with reports of constipation and abdominal pain. She's had some troubles with intermittent constipation and diarrhea since receiving chemotherapy and 5 Brachy therapy treatments for cervical cancer treated at [facility]. She's not had a bowel movement in 9 days. Feels the urge to have a bowel movement but is unable to do so. Complains of pain with hemorrhoids. No nausea or vomiting for the past few days. She is not on pain medication. Timing/Duration: 1-2 Days Severity/Quality: Moderate Location: Generalized Abdomen Radiation: No Radiation Activities at Onset: None Associated Symptoms: No Nausea/Vomiting Allergies and Home Medications Allergies Coded Allergies: Penicillins (Verified Allergy, Severe, SOA, pt has received Ceftriaxone w/o issue, 09/05/19) ciprofloxacin (Verified Allergy, Severe, BURNING SENSATION, 09/04/19) Sulfa (Sulfonamide Antibiotics) (Verified Allergy, Unknown, 09/04/19) bacitracin (Verified Allergy, Unknown, 09/04/19) benazepril (Verified Allergy, Unknown, 09/04/19) Home Medications Ascorbic Acid 500 Mg Tablet, 500 MG PO DAILY, (Reported) Calcium Carbonate/Vitamin D3 1 Each Tablet, 1 EACH PO DAILY, (Reported) Carboxymethylcellulose Sodium 1 Each Droperette, 1-2 DROPS OU PRN PRN for DRY EYES, (Reported) Cefdinir 300 Mg Capsule, 300 MG PO BID Prescribed by: DEE DEE LOWRY on 09/05/19 1202 Cephalexin 250 Mg Capsule, 250 MG PO Q6H Prescribed by: RYLAND CORRALES on 09/29/19 1248 Cyanocobalamin (Vitamin B-12) 1,000 Mcg Tablet, 1,000 MCG PO DAILY, (Reported) Insulin Glargine,Hum.rec.anlog 100 Unit/1 Ml Insuln.pen, 15 UNIT SQ HS, (Reported) Loratadine 10 Mg Capsule, 10 MG PO DAILY, (Reported) Magnesium Oxide 250 Mg Tablet, 250 MG PO DAILY, (Reported) Ondansetron 4 Mg Tab.rapdis, 4 MG PO BID Prescribed by: BONG MONROY on 09/23/19 1241 Patient Home Medication List Home Medication List Reviewed: Yes Review of Systems Review of Systems Constitutional: see HPI; No chills, No fever EENTM: No Symptoms Reported Respiratory: No Symptoms Reported Cardiovascular: No Symptoms Reported Gastrointestinal: See HPI, Abdominal Pain, Constipated Genitourinary: No Symptoms Reported Musculoskeletal: no symptoms reported Skin: no symptoms reported Psychiatric/Neurological: No Symptoms Reported Endocrine: No Symptoms Reported Past Olrxdlx-Fkbmvl-Ytxwcm Hx Patient Social History 2nd Hand Smoke Exposure: No Recent Foreign Travel: No Contact w/Someone Who Travel: No Recent Hopitalizations: No Seasonal Allergies Seasonal Allergies: Yes Past Medical History Surgeries: Yes (BRACHYTHERAPY-CERVIX ) Appendectomy, Gallbladder, Tonsillectomy Respiratory: No Cardiac: Yes Hypertension Neurological: Yes Traumatic Brain Injury Sexually Transmitted Disease: No HIV/AIDS: No Genitourinary: No Gastrointestinal: No Musculoskeletal: No Endocrine: Yes Diabetes, Insulin dep HEENT: No Cancer: Yes Cervical Did You Recieve Any Treatments: Yes What Type of Treatment Did You: Radiation Psychosocial: No Integumentary: No Blood Disorders: No Family Medical History Cardiovascular disease 19 FATHER Diabetes mellitus 19 FATHER G8 BROTHER Respiratory disorder 19 MOTHER Physical Exam Vital Signs Vital Signs - First Documented 10/02/19 18:51 Temp 37.0 Pulse 93 Resp 16 B/P (MAP) 127/71 (89) Pulse Ox 97 O2 Delivery Room Air Capillary Refill : Height/Weight/BMI Height: '" Weight: lbs. oz. kg; 25.00 BMI Method: General Appearance: WD/WN, no apparent distress HEENT: PERRL/EOMI, normal ENT inspection Respiratory: no respiratory distress, no accessory muscle use Cardiovascular: regular rate, rhythm, no murmur Gastrointestinal: normal bowel sounds, non tender, soft Extremities: normal range of motion, non-tender Neurologic/Psychiatric: alert, normal mood/affect, oriented x 3 Skin: normal color, warm/dry Progress/Results/Core Measures Results/Orders Lab Results Laboratory Tests Test 10/02/19 18:48 Range/Units White Blood Count 3.1 L 4.3-11.0 10^3/uL Red Blood Count 4.09 L 4.35-5.85 10^6/uL Hemoglobin 12.6 11.5-16.0 G/DL Hematocrit 37 35-52 % Mean Corpuscular Volume 91 80-99 FL Mean Corpuscular Hemoglobin 31 25-34 PG Mean Corpuscular Hemoglobin Concent 34 32-36 G/DL Red Cell Distribution Width 14.8 H 10.0-14.5 % Platelet Count 203 130-400 10^3/uL Mean Platelet Volume 8.1 7.4-10.4 FL Neutrophils (%) (Auto) 69 42-75 % Lymphocytes (%) (Auto) 20 12-44 % Monocytes (%) (Auto) 8 0-12 % Eosinophils (%) (Auto) 2 0-10 % Basophils (%) (Auto) 0 0-10 % Neutrophils # (Auto) 2.1 1.8-7.8 X 10^3 Lymphocytes # (Auto) 0.6 L 1.0-4.0 X 10^3 Monocytes # (Auto) 0.2 0.0-1.0 X 10^3 Eosinophils # (Auto) 0.1 0.0-0.3 10^3/uL Basophils # (Auto) 0.0 0.0-0.1 10^3/uL Sodium Level 138 135-145 MMOL/L Potassium Level 3.3 L 3.6-5.0 MMOL/L Chloride Level 101 98-107 MMOL/L Carbon Dioxide Level 25 21-32 MMOL/L Anion Gap 12 5-14 MMOL/L Blood Urea Nitrogen 12 7-18 MG/DL Creatinine 0.73 0.60-1.30 MG/DL Estimat Glomerular Filtration Rate > 60 BUN/Creatinine Ratio 16 Glucose Level 154 H 70-105 MG/DL Calcium Level 9.3 8.5-10.1 MG/DL Corrected Calcium 9.8 8.5-10.1 MG/DL Magnesium Level 1.5 L 1.6-2.4 MG/DL Total Bilirubin 0.8 0.1-1.0 MG/DL Aspartate Amino Transf (AST/SGOT) 16 5-34 U/L Alanine Aminotransferase (ALT/SGPT) < 6 0-55 U/L Alkaline Phosphatase 65 40-136 U/L Total Protein 7.6 6.4-8.2 GM/DL Albumin 3.4 3.2-4.5 GM/DL My Orders Orders - CHIN TUBBS APRN Acute Abd Series (10/02/19 18:42) Cbc With Automated Diff (10/02/19 18:42) Comprehensive Metabolic Panel (10/02/19 18:42) Ed Iv/Invasive Line Start (10/02/19 18:42) Ns Iv 1000 Ml (Sodium Chloride 0.9%) (10/02/19 18:45) Magnesium (10/02/19 18:42) Na Phos/Na Biphos Enema (Fleet Enema Alex (10/02/19 19:15) Magnesium Citrate Oral Soln (Citrate Of (10/02/19 19:15) Magnesium 1 Gm/100 Ml Ivpb (Magnesium Zaidi (10/02/19 19:30) Medications Given in ED Current Medications Medications Dose Ordered Sig/Jorge A Route Start Time Stop Time Status Last Admin Dose Admin Magnesium Citrate 300 ml ONCE ONCE PO 10/02/19 19:15 10/02/19 19:16 DC 10/02/19 19:53 300 ML Magnesium Sulfate/ Dextrose 100 ml @ 100 mls/hr ONCE ONCE IV 10/02/19 19:30 10/02/19 20:29 DC 10/02/19 19:53 100 MLS/HR Vital Signs/I&O 10/02/19 10/02/19 18:51 20:12 Temp 37.0 Pulse 93 78 Resp 16 16 B/P (MAP) 127/71 (89) 156/94 (114) Pulse Ox 97 97 O2 Delivery Room Air Room Air Departure Communication (Admissions) The right incisional hernia is large mobile nontender. I attempted to reduce this but was unsuccessful in doing so. She tolerated very well, no pain, she is passing gas and without nausea or vomiting. I spoke with Dr. Clark, would recommend the liquids for 3 days, then resume a more normal diet, follow-up with him in the clinic on Tuesday Impression Primary Impression: Incisional hernia Additional Impression: Constipation Disposition: HOME, SELF-CARE Condition: Stable Departure-Patient Inst. Decision time for Depature: 19:52 Referrals: RUSSELL OSORIO DO (PCP) Primary Care Physician OBINNA OSORIO DNP (Family) Primary Care Physician KASHIF CLARK DO Patient Instructions: Abdominal Hernia (DC), Constipation in Adults Add. Discharge Instructions: 1. Clear liquids for 3 days then you may resume a more normal diet. Return to ER for any pain nausea or vomiting or any other concerns. Follow-up with surgeon Dr. Clark or a surgeon of your choosing. Dr. Clark can see Tuesday. Call tomorrow to find out what time. All discharge instructions reviewed with patient and/or family. Voiced understanding. Copy Copies To 1: KASHIF CLARK PETER J APRN October 02, 2019 18:54
[2019-10-02 18:56] LABS: BASOPHILS % (AUTO) 0 % (0-10); EOSINOPHILS # (AUTO) 0.1 10^3/uL (0.0-0.3); EOSINOPHILS % (AUTO) 2 % (0-10); HEMATOCRIT 37 % (35-52); HEMOGLOBIN 12.6 G/DL (11.5-16.0); LYMPHOCYTES # (AUTO) 0.6 X 10^3 (1.0-4.0); LYMPHOCYTES % (AUTO) 20 % (12-44); MEAN CORPUSCULAR HEMOGLOBIN 31 PG (25-34); MEAN CORPUSCULAR HGB CONC 34 G/DL (32-36); MEAN CORPUSCULAR VOLUME 91 FL (80-99); MEAN PLATELET VOLUME 8.1 FL (7.4-10.4); MONOCYTES # (AUTO) 0.2 X 10^3 (0.0-1.0); MONOCYTES % (AUTO) 8 % (0-12); NEUTROPHILS # (AUTO) 2.1 X 10^3 (1.8-7.8); NEUTROPHILS % (AUTO) 69 % (42-75); PLATELET COUNT 203 10^3/uL (130-400); RED CELL DISTRIBUTION WIDTH 14.8 % (10.0-14.5); WHITE BLOOD COUNT 3.1 10^3/uL (4.3-11.0)
[2019-10-02 19:06] LABS: ALBUMIN 3.4 GM/DL (3.2-4.5); CHLORIDE 101 MMOL/L (98-107); POTASSIUM 3.3 MMOL/L (3.6-5.0); SODIUM 138 MMOL/L (135-145)
[2019-10-02 19:08] LABS: CALCIUM 9.3 MG/DL (8.5-10.1)
[2019-10-02 19:09] LABS: GLUCOSE 154 MG/DL (70-105); TOTAL PROTEIN 7.6 GM/DL (6.4-8.2)
[2019-10-02 19:10] LABS: CARBON DIOXIDE 25 MMOL/L (21-32)
[2019-10-02 19:11] LABS: BILIRUBIN,TOTAL 0.8 MG/DL (0.1-1.0)
[2019-10-02 19:12] LABS: ALKALINE PHOSPHATASE 65 U/L (40-136); CREATININE SERUM 0.73 MG/DL (0.60-1.30); GFR ESTIMATED > 60
[2019-10-02 19:13] LABS: BUN/CREATININE RATIO 16
[2019-10-02 19:15] LABS: ALANINE AMINOTRANSFERASE < 6 U/L (0-55)
[2019-10-02] MEDS ORDERED: FLEET ENEMA ADULT 1 EA BTL PR ONE (19:15)
[2019-10-02] MEDS ORDERED: MAGNESIUM CITRATE 300 ML BTL PO ONE (19:15)
[2019-10-02 19:16] LABS: MAGNESIUM 1.5 MG/DL (1.6-2.4)
--- NOTE | 2019-10-02 19:18 | Diagnostic Imaging Report ---
INDICATION: Constipation. FINDINGS: The lungs are clear. There is no failure, effusion, or pneumothorax. Postsurgical opacity projects over the right upper quadrant. Right upper quadrant colonic constipation similar if not and improved from its appearance at the CT of 09/29/2019. The appearance of potential improvement may be merely owing to modality sensitivity. Bilateral renal calculus disease extensive on the left shows no obvious change. No small bowel dilatation. No air-fluid levels. IMPRESSION: Right-sided constipation shows no adverse development from priors. No small bowel dilatation, air-fluid levels, or free gas. The chest is negative. Dictated by: Dictated on workstation # [id number]
[2019-10-02] MEDS ORDERED: MAGNESIUM 1 GM/100 ML IVPB 100 ML IV ONE (19:30)
--- NOTE | 2019-10-02 20:03 | NUR ---
Pt still has mag running over an hour; unsure if she wants the fleets enema or not. Will wait until closer to d/c.
[2019-10-02 20:12] VITALS: BP 156/94
[2019-10-02 20:53] VITALS: BP 131/89
--- OUTSIDE RECORDS SUMMARY | 2019-10-02 21:53 | XMS REPORT | Continuity of Care Document ---
Author Organization Unknown Address Unknown Phone Unavailable Allergies Active Description Code Type Severity Reaction Onset Reported/Identified Relationship to Patient Clinical Status Yes No Allergy Information Available [id number] Drug Allergy Unknown N/A 019 Yes ciprofloxacin [id number] Tramaine g Allergy Severe BURNING SENSATI 09/04/2019 Yes Penicillins [id number] Drug Aller gy Severe SOA 09/04/2019 Yes bacitracin [id number] Drug Allerg y Unknown N/A 09/04/2019 Yes benazepril [id number] Drug Allerg y Unknown N/A 09/04/2019 Yes Sulfa (Sulfonamide Antibiotics) [id number] Drug Allergy Unknown N/A 020 Yes Penicillins [id number] Drug Aller gy Severe SOA, pt has [...] KWASI PEREZ MD Ot Z01.411 ENCNTR FOR YARN SORTER EXAM (GENERAL) (ROUTINE) 02/28/2019 KWASI PEREZ MD [...] R59.0 LOCALIZED ENLARGED LYMPH NODES 03/05/2019 SHIRA GALAVN Ot Z01.4 11 ENCNTR FOR YARN SORTER EXAM (GENERAL) (ROUTINE) 03/05/2019 KWASI PEREZ MD [...] RENAL AND URETERAL C 03/06/2019 SHIRA GALVAN JAVASCRIPT ENGINEER Ot N88.8 OTHER SPECIFIED NONINFLAMMATORY DISORDER 03/06/2019 SHIRA GALVANP Ot N95.0 POSTMENOPAUSAL BLEEDING 03/06/2019 SHIRA GALVAN Ot R59.0 LOCALIZED ENLARGED LYMPH NODES 03/06/2019 SHIRA GALVAN Ot Z01.4 11 ENCNTR FOR YARN SORTER EXAM (GENERAL) (ROUTINE) 03/07/2019 KWASI PEREZ MD [...] KWASI PEREZ MD Ot Z01.411 ENCNTR FOR YARN SORTER EXAM (GENERAL) (ROUTINE) 03/20/2019 KWASI PEREZ MD [...] 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 OR AB 03/21/2019 SHIRA GALVAN JAVASCRIPT ENGINEER Ot N13.2 HYDRONEPHROSIS WITH RENAL AND URETERAL C 03/21/2019 SHIRA GALVANP Ot N88.8 OTHER SPECIFIED NONINFLAMMATORY DISORDER 03/21/2019 SHIRA GALVANP Ot N95.0 POSTMENOPAUSAL BLEEDING 03/21/2019 SHIRA GALVANP Ot R59.0 LOCALIZED ENLARGED LYMPH NODES 03/21/2019 SHIRA GALVANP Ot Z01.4 11 ENCNTR FOR YARN SORTER EXAM (GENERAL) (ROUTINE) 03/29/2019 KWASI PEREZ MD [...] KWASI PEREZ MD Ot Z01.411 ENCNTR FOR YARN SORTER EXAM (GENERAL) (ROUTINE) 03/29/2019 KWASI PEREZ MD [...] OF OTHER ORGANS 05/18/2019 LIYA OSORIORICIA L JAVASCRIPT ENGINEER Ot E11.69 TYPE 2 DIABETES MELLITUS WITH OTHER SPEC 05/18/2019 OSORIO OBINNA L JAVASCRIPT ENGINEER Ot E11.69 TYPE 2 DIABETES MELLITUS WITH OTHER SPEC 05/18/2019 OSORIO, OBINNA L JAVASCRIPT ENGINEER Ot D64.89 OTHER SPECIFIED ANEMIAS 05/18/2019 DEVON OBINNA L JAVASCRIPT ENGINEER Ot E11.69 TYPE 2 DIABETES MELLITUS WITH OTHER SPEC 05/18/2019 DEVON OBINNA L JAVASCRIPT ENGINEER Ot E83.42 HYPOMAGNESEMIA 05/18/2019 DEVON OBINNA L JAVASCRIPT ENGINEER Ot E86.0 DEHYDRATION 05/18/2019 DEVON OBINNA L JAVASCRIPT ENGINEER Ot R06.09 OTHER FORMS OF DYSPNEA 05/18/2019 DEVON OBINNA L JAVASCRIPT ENGINEER Ot E11.69 TYPE 2 DIABETES MELLITUS WITH OTHER SPEC 05/22/2019 SHIRA GALVAN JAVASCRIPT ENGINEER Ot K57.3 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 05/22/2019 SHIRA GALVAN JAVASCRIPT ENGINEER Ot N13.2 HYDRONEPHROSIS WITH RENAL AND URETERAL C 05/22/2019 SHIRA GALVAN JAVASCRIPT ENGINEER Ot N88.8 OTHER SPECIFIED NONINFLAMMATORY DISORDER 05/22/2019 SHIRA GALVANP Ot N95.0 POSTMENOPAUSAL BLEEDING 05/22/2019 SHIRA GALVANP Ot R59.0 LOCALIZED ENLARGED LYMPH NODES 05/22/2019 SHIRA GALVANP Ot Z01.4 11 ENCNTR FOR YARN SORTER EXAM (GENERAL) (ROUTINE) 05/24/2019 OBINNA OSORIO L JAVASCRIPT ENGINEER Ot E83.42 HYPOMAGNESEMIA 05/24/2019 OSORIO, OBINNA L JAVASCRIPT ENGINEER Ot E86.0 DEHYDRATION 05/24/2019 OSORIO, OBINNA L JAVASCRIPT ENGINEER Ot Z88.0 ALLERGY STATUS TO PENICILLIN 05/24/2019 OSORIO, OBINNA L JAVASCRIPT ENGINEER Ot Z88.2 ALLERGY STATUS TO SULFONAMIDES STATUS 05/26/2019 OSORIO, OBINNA L JAVASCRIPT ENGINEER Ot E83.42 HYPOMAGNESEMIA 05/26/2019 OSORIO, OBINNA L JAVASCRIPT ENGINEER Ot E86.0 DEHYDRATION 05/26/2019 OSORIO, OBINNA L JAVASCRIPT ENGINEER Ot Z88.0 ALLERGY STATUS TO PENICILLIN 05/26/2019 OSORIO, OBINNA L JAVASCRIPT ENGINEER Ot Z88.2 ALLERGY STATUS TO SULFONAMIDES STATUS 05/28/2019 OSORIO, OBINNA L JAVASCRIPT ENGINEER Ot E83.42 HYPOMAGNESEMIA 05/28/2019 OSORIO, OBINNA L JAVASCRIPT ENGINEER Ot E86.0 DEHYDRATION 05/28/2019 OSORIO, OBINNA L JAVASCRIPT ENGINEER Ot Z88.0 ALLERGY STATUS TO PENICILLIN 05/28/2019 OSORIO, OBINNA L JAVASCRIPT ENGINEER Ot Z88.2 ALLERGY STATUS TO SULFONAMIDES STATUS [...] HISTORY OF ANTINEOPLASTIC CHEMO 06/11/2019 OBINNA OSORIO JAVASCRIPT ENGINEER Ot E83.42 HYPOMAGNESEMIA 06/11/2019 OBINNA OSORIO JAVASCRIPT ENGINEER Ot E86.0 DEHYDRATION 06/11/2019 OBINNA OSORIO JAVASCRIPT ENGINEER Ot J70.1 CHRONIC AND OTHER PULMONARY MANIFESTATIO 06/11/2019 OBINNA OSORIO JAVASCRIPT ENGINEER Ot J90 PLEURAL EFFUSION, NOT ELSEWHERE CLASSIFI 06/12/2019 OBINNA OSORIO JAVASCRIPT ENGINEER Ot J70.1 CHRONIC AND OTHER PULMONARY MANIFESTATIO 06/12/2019 OBINNA OSORIO JAVASCRIPT ENGINEER Ot J90 PLEURAL EFFUSION, NOT ELSEWHERE CLASSIFI 06/12/2019 OBINNA OSORIO JAVASCRIPT ENGINEER Ot E83.42 HYPOMAGNESEMIA 06/12/2019 OBINNA OSORIO JAVASCRIPT ENGINEER Ot E86.0 DEHYDRATION 06/15/2019 MENDEZ DO, ANGE [...] TO OTH DRUG/MEDS/BIOL SUB 06/17/2019 OBINNA OSORIO JAVASCRIPT ENGINEER Ot E83.42 HYPOMAGNESEMIA 06/17/2019 OBINNA OSORIO JAVASCRIPT ENGINEER Ot E86.0 DEHYDRATION 06/19/2019 MENDEZ DO, ANGE [...] ANGE L Ot Z88.8 ALLERGY STATUS TO [facility] DRUG/MEDS/BIOL SUB 06/25/2019 OSORIO, OBINNA L JAVASCRIPT ENGINEER Ot E83.42 HYPOMAGNESEMIA 06/25/2019 OSORIO, OBINNA L JAVASCRIPT ENGINEER Ot E86.0 DEHYDRATION 06/25/2019 OSORIO, OBINNA L JAVASCRIPT ENGINEER Ot E87.6 HYPOKALEMIA 06/25/2019 OSORIO OBINNA L JAVASCRIPT ENGINEER Ot K52.9 NONINFECTIVE GASTROENTERITIS AND COLITIS 06/25/2019 OSORIO, OBINNA L JAVASCRIPT ENGINEER Ot N39.0 URINARY TRACT INFECTION, SITE NOT SPECIF 06/25/2019 OSORIO, OBINNA L JAVASCRIPT ENGINEER Ot R68.89 OTHER GENERAL SYMPTOMS AND SIGNS 06/25/2019 DEVON OBINNA L JAVASCRIPT ENGINEER Ot R68.89 OTHER GENERAL SYMPTOMS AND SIGNS 06/26/2019 ISHAAN MENDEZ, MARIANNE Cunningham Ot D68.9 COAGULATION DEFECT, UNSPECIFIED 06/26/2019 ISHAAN MENDEZ, MARIANNE Cunningham Ot I 96 GANGRENE, NOT ELSEWHERE CLASSIFIED 06/26/2019 ISHAAN MENDEZ, MARIANNE Cunningham Ot 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, STAGE 3 06/26/2019 ISHAAN MENDEZ, MARIANNE Cunningham Ot N39.0 URINARY TRACT INFECTION, SITE NOT SPECIF 06/26/2019 DEVON OBINNA L JAVASCRIPT ENGINEER Ot E83.42 HYPOMAGNESEMIA 06/26/2019 LIYA OSORIORICIA L JAVASCRIPT ENGINEER Ot E86.0 DEHYDRATION 06/26/2019 LIYA OSORIORICIA L JAVASCRIPT ENGINEER Ot E87.6 HYPOKALEMIA 06/26/2019 LIYA OSORIORICIA L JAVASCRIPT ENGINEER Ot K52.9 NONINFECTIVE GASTROENTERITIS AND COLITIS 06/26/2019 LIYA OSORIORICIA L JAVASCRIPT ENGINEER Ot N39.0 URINARY TRACT INFECTION, SITE NOT SPECIF 06/26/2019 OSORIO, OBINNA L JAVASCRIPT ENGINEER Ot R68.89 OTHER GENERAL SYMPTOMS AND SIGNS 06/28/2019 LIYA OSORIORICIA L JAVASCRIPT ENGINEER Ot E83.42 HYPOMAGNESEMIA 06/28/2019 OSORIO, OBINNA L JAVASCRIPT ENGINEER Ot E86.0 DEHYDRATION 06/28/2019 LIYA OSORIORICIA L JAVASCRIPT ENGINEER Ot J70.1 CHRONIC AND OTHER PULMONARY MANIFESTATIO 06/28/2019 WIL OSORIOIA L JAVASCRIPT ENGINEER Ot J90 PLEURAL EFFUSION, NOT ELSEWHERE CLASSIFI 06/29/2019 LIYA OSORIORICIA L JAVASCRIPT ENGINEER Ot E83.42 HYPOMAGNESEMIA 06/29/2019 OSORIO, OBINNA L JAVASCRIPT ENGINEER Ot E86.0 DEHYDRATION 07/03/2019 OSORIO, OBINNA L JAVASCRIPT ENGINEER Ot E83.42 HYPOMAGNESEMIA 07/03/2019 OSORIO, OBINNA L JAVASCRIPT ENGINEER Ot E86.0 DEHYDRATION 07/03/2019 SARA MONCADA Ot 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, [facility] 07/12/2019 DELCRESSEY DO, ABEBA B Ot Z01.8 18 ENCOUNTER FOR OTHER PREPROCEDURAL EXAMIN 07/12/2019 [facility] [place] DO, ABEBA B Ot Z01.8 18 ENCOUNTER FOR OTHER PREPROCEDURAL EXAMIN 07/12/2019 [facility], ABEBA B Ot Z01.8 18 ENCOUNTER FOR OTHER PREPROCEDURAL EXAMIN 07/13/2019 [facility] [place] DO, ABEBA B Ot Z01.8 18 ENCOUNTER FOR OTHER PREPROCEDURAL EXAMIN 07/13/2019 LIYA OSORIORICIA L JAVASCRIPT ENGINEER Ot E83.42 HYPOMAGNESEMIA 07/13/2019 DEVON, OBINNA L JAVASCRIPT ENGINEER Ot E86.0 DEHYDRATION 07/16/2019 OSORIO, OBINNA L JAVASCRIPT ENGINEER Ot E83.42 HYPOMAGNESEMIA 07/16/2019 OSORIO, OBINNA L JAVASCRIPT ENGINEER Ot E86.0 DEHYDRATION 07/16/2019 DEVON, OBINNA L JAVASCRIPT ENGINEER Ot E83.42 HYPOMAGNESEMIA 07/16/2019 OSORIO, OBINNA L JAVASCRIPT ENGINEER Ot E86.0 DEHYDRATION 07/16/2019 OSORIO, OBINNA L JAVASCRIPT ENGINEER Ot E83.42 HYPOMAGNESEMIA 07/16/2019 OSORIO, OBINNA L JAVASCRIPT ENGINEER Ot E86.0 DEHYDRATION 07/16/2019 OSORIO, OBINNA L JAVASCRIPT ENGINEER Ot E83.42 HYPOMAGNESEMIA 07/16/2019 OSORIO, OBINNA L JAVASCRIPT ENGINEER Ot E86.0 DEHYDRATION 07/20/2019 CATALINA CHEN JAVASCRIPT ENGINEER Ot J 90 PLEURAL EFFUSION, NOT ELSEWHERE CLASSIFI 07/20/2019 RUSSELL OSORIO DO Ot R05 COUGH 07/24/2019 APRIL CATALINA S JAVASCRIPT ENGINEER Ot 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 07/24/2019 CHEN, CATALINA S JAVASCRIPT ENGINEER Ot J 90 PLEURAL EFFUSION, NOT ELSEWHERE CLASSIFI 07/24/2019 CHEN CATALINA S JAVASCRIPT ENGINEER Ot K43.9 VENTRAL HERNIA WITHOUT OBSTRUCTION OR GA 07/24/2019 APRIL HILAH S JAVASCRIPT ENGINEER Ot K57.3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 07/24/2019 APRIL CATALINA S JAVASCRIPT ENGINEER Ot N20.0 CALCULUS OF KIDNEY 07/24/2019 CHEN, HILAH S JAVASCRIPT ENGINEER Ot R06.00 DYSPNEA, UNSPECIFIED 07/24/2019 CHEN HILAH S JAVASCRIPT ENGINEER Ot R59.0 LOCALIZED ENLARGED LYMPH NODES 07/25/2019 Ot 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0 LOCALIZED ENLARGED LYMPH NODES 07/27/2019 OBINNA OSORIO JAVASCRIPT ENGINEER Ot E83.42 HYPOMAGNESEMIA 07/27/2019 OBINNA OSORIO L JAVASCRIPT ENGINEER Ot E86.0 DEHYDRATION 08/07/2019 RUSSELL OSORIO DO Ot R05 COUGH 08/07/2019 APRIL CATALINA S JAVASCRIPT ENGINEER Ot J 90 PLEURAL EFFUSION, NOT ELSEWHERE CLASSIFI 08/10/2019 MATHEW GILMORE APRN Ot M79.89 OTHER SPECIFIED SOFT TISSUE DISORDERS 08/14/2019 Ot 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 08/15/2019 CATALINA CHEN JAVASCRIPT ENGINEER Ot 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 08/15/2019 CATALINA CHEN JAVASCRIPT ENGINEER Ot J 90 PLEURAL EFFUSION, NOT ELSEWHERE CLASSIFI 08/15/2019 CATALINA CHEN JAVASCRIPT ENGINEER Ot K43.9 VENTRAL HERNIA WITHOUT OBSTRUCTION OR GA 08/15/2019 CATALINA CHEN JAVASCRIPT ENGINEER Ot K57.3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 08/15/2019 CATALINA CHEN JAVASCRIPT ENGINEER Ot N20.0 CALCULUS OF KIDNEY 08/15/2019 CATALINA CHEN JAVASCRIPT ENGINEER Ot R06.00 DYSPNEA, UNSPECIFIED 08/15/2019 CATALINA CHEN JAVASCRIPT ENGINEER Ot R59.0 LOCALIZED ENLARGED LYMPH NODES 08/20/2019 SARA MONCADA Ot 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 9 MALIGNANT NEOPLASM OF CERVIX UTERI, [facility] 09/05/2019 DEE DEE LOWRY MD Ot E11. [...] DEE DEE LOWRY MD Ot Z79. 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 09/26/2019 BONG MONROY [...] culture - 02/28/19 14:50 Bacterial urine culture [id number] NRG COLONY COUNT >100,000/ML NRG FTX;REPORTABLE SUSCEPTIBILITY [...] pa esteban - 03/01/19 08:32 WRISTBAND NUMBER [id number] NRG ABO+Rh group AP NRG Blood group [...] INFLUENZA A AND B ANTIGENS BY IA [facility] Automated blood complete blood count [...] culture - 09/04/19 14:40 Bacterial urine culture [id number] NRG COLONY COUNT 10,000 CFU/ML NRG SUSCEPTIBILITY SUSCEPTIBILITY REPORTED 09/08/19 10:0 5 NRG RAPID ID PRELIM RAPID ID BY [facility] [phone] NRG ID CONFIRMATION ID [...] - 09/23/19 11:40 Lipase 8 U/L 8-78 Complete blood count (CBC) with automate d white blood cell (WBC) differential - 09/29/19 10:00 Blood leukocytes automated count (number/volume) 3.5 10*3/uL 4.3-11.0 Blood erythrocytes automated count (number/volume) 4.00 10*6/uL 4.35-5.85 Venous blood hemoglobin measurement (mass/volume) 12.4 g/dL 11.5-16.0 Blood hematocrit (volume fraction) 37 % 35-52 Automated erythrocyte mean corpuscular volume 92 [ foz_us] 80-99 Automated erythrocyte mean corpuscular h emoglobin (mass per erythrocyte) 31 pg 25-34 Automated erythrocyte mean corpuscular h emoglobin concentration measurement (mass/volume) 34 g/dL 32-36 Automated erythrocyte distribution width ratio 14. 4 % 10.0- 14.5 Automated blood platelet count (count/volume) 212 10*3/uL 130-400 Automated blood platelet mean volume measurement 8.6 [foz_us] 7.4-10.4 Automated blood neutrophils/100 leukocytes 76 % 42-75 Automated blood lymphocytes/100 leukocytes 15 % 12-44 Blood monocytes/100 leukocytes 6 % 0-12 Automated blood eosinophils/100 leukocytes 3 % 0-10 Automated blood basophils/100 leukocytes 0 % 0-10 Blood neutrophils automated count (number/volume) 2.6 10*3 1.8-7.8 Blood lymphocytes automated count (number/volume) 0.5 10*3 1.0-4.0 Blood monocytes automated count (number/volume) 0. 2 10*3 0.0-1.0 Automated eosinophil count 0.1 10*3/uL 0 .0-0.3 Automated blood basophil count (count/volume) 0.0 10*3/uL 0.0-0.1 Comprehensive metabolic panel - 09/29/19 10:00 Serum or plasma sodium measurement (moles/volume) 139 mmol/L 135-145 Serum or plasma potassium measurement (moles/volume) 3.1 mmol/L 3.6-5.0 Serum or plasma chloride measurement (moles/volume) 99 mmol/L 98-107 Carbon dioxide 28 mmol/L 21-32 [...] NRG Serum or plasma glucose measurement (mass/volume) 160 mg/dL 70-105 Serum or plasma calcium measurement (mass/volume) 9.2 mg/dL 8.5-10.1 Serum or plasma total bilirubin measurement (mass/volu me) 0.7 mg/dL 0.1-1.0 Serum or plasma alkaline phosphatase omar surement (enzymatic activity/volume) 62 U/L 40-136 Serum or plasma aspartate aminotransfera se measurement (enzymatic activity/volume) 17 U/L 5-34 Serum or plasma alanine aminotransferase measurement (enzymatic activity/volume) 6 U/L 0-55 Serum or plasma protein measurement (mass/volume) 7.0 g/dL 6.4-8.2 Serum or plasma albumin measurement (mass/volume) 3.3 g/dL 3.2-4.5 CALCIUM CORRECTED 9.8 mg/dL 8.5-10.1 Magnesium - 09/29/19 10:00 Magnesium 1.3 mg/dL 1.6-2.4 PT panel in platelet poor plasma by coag ulation assay - 09/29/19 10:00 Prothrombin time (PT) in platelet poor plasma by coagu lation assay 13.3 s 12.2-14.7 INR in platelet poor plasma or blood by coagulation as say 1.0 0.8-1.4 Activated partial thromboplastin time (a PTT) in platelet poor plasma bycoagulation assay - 09/29/19 10:00 Activated partial thromboplastin time (a PTT) in platelet poor plasma bycoagulation assay 26 s 24-35 Blood lactic acid measurement (moles/vol ume) - 09/29/19 10:15 Blood lactic acid measurement (moles/volume) 1.81 mmol/L 0.50-2.00 Bacterial blood culture - 09/29/19 10:15 Bacterial blood culture NG NRG Bacterial blood culture - 09/29/19 10:25 Bacterial blood culture NG NRG Complete urinalysis with reflex to cultu re - 09/29/19 10:40 Urine color determination DARK YELLOW N RG Urine clarity determination SL CLOUDY N RG Urine pH measurement by test strip 5.5 5-9 Specific gravity of urine by test strip >= 1.016-1.022 Urine protein assay by test strip, semi-quantitative 1+ NEGATIVE Urine glucose detection by automated test strip NE GATIVE NEGATIVE Erythrocytes detection in urine sediment by light micr oscopy 2+ NEGATIVE Urine ketones detection by automated test strip TR KEVIN NEGATIVE Urine nitrite detection by test strip [...] detection in urine sediment by light microscopy PRESENT NRG Mucus detection in urine sediment by light microscopy LARGE NRG Complete urinalysis with reflex to culture YES NRG Hyaline casts detection in urine sediment by light brittany roscopy 10-25 NRG Calcium oxalate crystals detection in ur ine sediment by light microscopy FEW NRG Granular casts detection in urine sediment by light mi croscopy 0-2 NRG Bacterial urine culture - 09/29/19 10:40 Bacterial urine culture 3 OR MORE NRG COLONY COUNT 10,000 CFU/ML NRG SUSCEPTIBILITY GRAM POSITIVES, SUGGESTING PROBABLE NRG MRSA SCREEN COLLECTION CONTAMINATION WITH SKIN MAVIS RA NRG RAPID ID NO SUSCEPTIBILITY PERFORMED N RG Complete blood count (CBC) with automate d white blood cell (WBC) differential - 10/02/19 18:48 Blood leukocytes automated count (number/volume) 3.1 10*3/uL 4.3-11.0 Blood erythrocytes automated count (number/volume) 4.09 10*6/uL 4.35-5.85 Venous blood hemoglobin measurement (mass/volume) 12.6 g/dL 11.5-16.0 Blood hematocrit (volume fraction) 37 % 35-52 Automated erythrocyte mean corpuscular volume 91 [ foz_us] 80-99 Automated erythrocyte mean corpuscular h emoglobin (mass per erythrocyte) 31 pg 25-34 Automated erythrocyte mean corpuscular h emoglobin concentration measurement (mass/volume) 34 g/dL 32-36 Automated erythrocyte distribution width ratio 14. 8 % 10.0- 14.5 Automated blood platelet count (count/volume) 203 10*3/uL 130-400 Automated blood platelet mean volume measurement 8.1 [foz_us] 7.4-10.4 Automated blood neutrophils/100 leukocytes 69 % 42-75 Automated blood lymphocytes/100 leukocytes 20 % 12-44 Blood monocytes/100 leukocytes 8 % 0-12 Automated blood eosinophils/100 leukocytes 2 % 0-10 Automated blood basophils/100 leukocytes 0 % 0-10 Blood neutrophils automated count (number/volume) 2.1 10*3 1.8-7.8 Blood lymphocytes automated count (number/volume) 0.6 10*3 1.0-4.0 Blood monocytes automated count (number/volume) 0. 2 10*3 0.0-1.0 Automated eosinophil count 0.1 10*3/uL 0 .0-0.3 Automated blood basophil count (count/volume) 0.0 10*3/uL 0.0-0.1 Comprehensive metabolic panel - 10/02/19 18:48 Serum or plasma sodium measurement (moles/volume) 138 mmol/L 135-145 Serum or plasma potassium measurement (moles/volume) 3.3 mmol/L 3.6-5.0 Serum or plasma chloride measurement (moles/volume) 101 mmol/L 98-107 Carbon dioxide 25 mmol/L 21-32 Serum or plasma anion gap determination (moles/volume) 12 mmol/L 5-14 Serum or plasma urea nitrogen measurement (mass/volume ) 12 mg/dL 7-18 Serum or plasma creatinine measurement (mass/volume) 0.73 mg/dL 0.60-1.30 Serum or plasma urea nitrogen/creatinine mass ratio 16 NRG Serum or plasma creatinine measurement w ith calculation of estimated glomerular filtration rate > NRG Serum or plasma glucose measurement (mass/volume) 154 mg/dL 70-105 Serum or plasma calcium measurement (mass/volume) 9.3 mg/dL 8.5-10.1 Serum or plasma total bilirubin measurement (mass/volu me) 0.8 mg/dL 0.1-1.0 Serum or plasma alkaline phosphatase omar surement (enzymatic activity/volume) 65 U/L 40-136 Serum or plasma aspartate aminotransfera se measurement (enzymatic activity/volume) 16 U/L 5-34 Serum or plasma alanine aminotransferase measurement (enzymatic activity/volume) < U/L 0-55 Serum or plasma protein measurement (mass/volume) 7.6 g/dL 6.4-8.2 Serum or plasma albumin measurement (mass/volume) 3.4 g/dL 3.2-4.5 CALCIUM CORRECTED 9.8 mg/dL 8.5-10.1 Magnesium - 10/02/19 18:48 Magnesium 1.5 mg/dL 1.6-2.4 Encounters ACCT No. Visit Date/Time Discharge Status Pt. Type Provider Facility Loc./Unit Complaint [id number] 10/02/2019 18:32:00 20:54:00 DIS Emergency CHIN TUBBS APRN [facility] ER ABD PAIN, CONSTIPATION [id number] 09/29/2019 09:39:00 12:53:00 DIS Emergency RYLAND CORRALES DO [facility] ER FS ABD PROTRUSION [id number] 09/23/2019 11:31:00 13:20:00 DIS Outpatient PORFIRIO MENDEZ, BONG Hawkins [facility] ER FS ABD PAIN [id number] 09/04/2019 16:40:00 14:45:00 DIS Outpatient ALEN MENDEZ, DEE DEE Dumont [facility] 4TH ORTHOSTATIC HYPOTENSION ,NEAR SYNCOPE,DECUBITUS ULC [id number] 08/20/2019 08:00:00 23:59:59 CLS Preadmit MATHEW GILMORE APRN [facility] RAD LEG SWELLING [id number] 07/17/2019 10:27:00 00:01:00 DIS Outpatient SARA MONCADA V [facility] ONC [id number] 07/27/2019 11:00:00 23:59:59 CLS Outpatient OBINNA OSORIO [facility] DEHYDRATION,CHR ONIC LOW MAG [id number] 07/23/2019 13:45:00 23:59:59 CLS Outpatient CATALINA CHEN [facility] RAD DYSPNEA,CERVICA L CARCINOMA [id number] 07/18/2019 16:23:00 23:59:59 CLS Outpatient RUSSELL OSORIO DO [facility] LAB FS COUGH [id number] 07/18/2019 08:00:00 23:59:59 CLS Preadmit ABEBA SALAMANCA DO B V [facility] HISTORY OF CANCER [id number] 07/17/2019 12:32:00 23:59:59 CLS Outpatient CATALINA CHEN [facility] RAD [id number] 07/12/2019 11:30:00 23:59:59 CLS Outpatient ABEBA SALAMANCA DO B [facility] PREOP HISTORY OF CANCER [id number] 06/28/2019 14:13:00 23:59:59 CLS Outpatient OBINNA OSORIO [facility] DEHYDRATION,CHR ONS LOW MG [id number] 06/25/2019 11:44:00 14:40:00 DIS Outpatient OBINNA OSORIO JAVASCRIPT ENGINEER [facility] GASTROENTITIS,DEHYDRATION,UTI [id number] 06/15/2019 11:14:00 12:59:00 DIS Emergency ANGE MENDEZ DO [facility] ER FS VOMITING; DIARRHEA; HYPERGLYCEMIA; SOB [id number] 06/11/2019 14:25:00 23:59:59 CLS Outpatient OBINNA OSORIO JAVASCRIPT ENGINEER [facility] RAD CHRONIC AND OTH ER PULMONARY MANIFESTATIONS DUE TO [id number] 06/11/2019 10:50:00 23:59:59 CLS Preadmit MARIANNE QUIROS MD [facility] WOUNDCARE [id number] 06/11/2019 12:10:00 14:55:00 DIS Outpatient OBINNA OSORIO [facility] LOW MG,DEHYDRAT ION [id number] 06/04/2019 15:20:00 18:44:00 DIS Emergency ROVENSTBINDU REYES DO L [facility] ER FS SOA [id number] 05/28/2019 14:01:00 23:59:59 CLS Outpatient MARIANNE QUIROS MD [facility] WOUNDCARE [id number] 05/24/2019 12:56:00 16:10:00 DIS Outpatient OBINNA OSORIO [facility] DEHYDRATION,LOW MAGNESIUM [id number] 05/18/2019 11:32:00 15:50:00 DIS Outpatient OBINNA OSORIO [facility] TYPE 2 DIABETES,DEHYDRATION,LOW MAGNESIUM [id number] 03/01/2019 08:10:00 11:36:00 DIS Emergency KWASI PEREZ MD [facility] ER VAGINAL BLEEDING [id number] 02/28/2019 11:58:00 23:59:59 CLS Outpatient SHIRA GALVAN JAVASCRIPT ENGINEER [facility] RAD POSTMENOPAUSAL BLEEDING [id number] 02/28/2019 13:56:00 17:27:00 DIS Emergency KWASI PEREZ MD [facility] ER ABNORMAL US [id number] 08/21/2019 00:00:00 Document Registration [id number] 07/21/2019 18:10:00 Document Registration
== END 2019-10-02 20:54 | disposition home or self-care (01) ==
LOC: EDUNIT# 18:30 → ER 18:32
DX: K43.2 Incisional hernia without obstruction or gangrene (principal); K59.00 Constipation, unspecified; E11.9 Type 2 diabetes mellitus without complications; Z85.41 Personal history of malignant neoplasm of cervix uteri; Z88.0 Allergy status to penicillin; Z88.2 Allergy status to sulfonamides; Z88.1 Allergy status to other antibiotic agents; Z88.8 Allergy status to other drugs, medicaments and biological substances; Z79.4 Long term (current) use of insulin; Z87.820 Personal history of traumatic brain injury; Z82.49 Family history of ischemic heart disease and other diseases of the circulatory system
CPT/HCPCS: 36415; 74022; 80053; 83735; 85025; 96361; 96374

== ENCOUNTER → 2019-10-30 | Outpatient (CLI) | payer MEDICARE, OTHER ==
--- NOTE | 2019-10-30 12:56 | Diagnostic Imaging Report ---
INDICATION: Cervical carcinoma, restaging. Serum blood glucose level at time of injection is 141 mg/dL. Patient was administered 14.2 mCi F-18 FDG intravenously in the right forearm and PET imaging was performed from the top of skull to mid thighs. Noncontrast CT was performed for attenuation correction and anatomic correlation. Correlation is made with conventional noncontrast CT abdomen and pelvis from 09/29/2019. No prior PET CT studies available for comparison. There is symmetric activity throughout the brain. Soft tissues of the neck are unremarkable. No mediastinal or hilar hypermetabolism is identified. Pulmonary parenchyma is unremarkable. Physiologic activity within the gastrointestinal and genitourinary tracts noted. A right abdominal wall hernia containing a portion of the colon is again noted. No hypermetabolic lymphadenopathy is detected. No suspicious abnormality is seen. Bilateral nonobstructing renal calculi are again noted. IMPRESSION: Unremarkable PET/CT study. No suspicious hypermetabolism is identified. Dictated by: Dictated on workstation # [id number]
== END ==
LOC: RAD 09:32
PROVIDERS: ATTEND Nurse Practitioner Adult Health
DX: Z01.89 Encounter for other specified special examinations (principal); C53.8 Malignant neoplasm of overlapping sites of cervix uteri
CPT/HCPCS: 78815; A9552

== ENCOUNTER 2019-11-11 16:24 | Emergency (ER) | payer MEDICARE, OTHER ==
--- NOTE | 2019-11-11 16:38 | ED Abdominal Pain ---
General Stated Complaint: VOMITING Source of Information: Patient, EMS Exam Limitations: No Limitations (FLOR[place] MOLINA DO) History of Present Illness Date Seen by Provider: Nov 11, 2019 Time Seen by Provider: 16:25 Initial Comments The patient is a 69-year-old female brought in by EMS for evaluation of nausea, vomiting, diarrhea, and abdominal discomfort which started about an hour ago. The patient states that she had yogurt for breakfast and then a protein bar for lunch before her symptoms began. EMS was unable to obtain an IV so did not give any antiemetics in route. The patient reports that she is status post cholecystectomy and appendectomy but denies any other abdominal surgeries. She reports a history of insulin-dependent diabetes and cervical cancer. She does mention that she has a chronic abdominal hernia and is not currently having pain at this location. She is alert and oriented 4, calm, and appears to be uncomfortable but in no distress at this time. She denies chest pain or shortness of breath, back or flank pain, planes, pelvic pain or bleeding, hematemesis, rectal bleeding, dizziness or syncope. Timing/Duration: 1-3 Hours Severity/Quality: Moderate Location: Epigastric (mild) Radiation: No Radiation Activities at Onset: None Associated Symptoms: Nausea/Vomiting ([place]OR[place] MOLINA DO) Allergies and Home Medications Allergies Coded Allergies: Penicillins (Verified Allergy, Severe, SOA, pt has received Ceftriaxone w/o issue, 09/05/19) ciprofloxacin (Verified Allergy, Severe, BURNING SENSATION, 09/04/19) Sulfa (Sulfonamide Antibiotics) (Verified Allergy, Unknown, 09/04/19) bacitracin (Verified Allergy, Unknown, 09/04/19) benazepril (Verified Allergy, Unknown, 09/04/19) Home Medications Ascorbic Acid 500 Mg Tablet, 500 MG PO DAILY, (Reported) Calcium Carbonate/Vitamin D3 1 Each Tablet, 1 EACH PO DAILY, (Reported) Carboxymethylcellulose Sodium 1 Each Droperette, 1-2 DROPS OU PRN PRN for DRY EYES, (Reported) Cefdinir 300 Mg Capsule, 300 MG PO BID Prescribed by: DEE DEE LOWRY on 09/05/19 1202 Cephalexin 250 Mg Capsule, 250 MG PO Q6H Prescribed by: RYLAND CORRALES on 09/29/19 1248 Cyanocobalamin (Vitamin B-12) 1,000 Mcg Tablet, 1,000 MCG PO DAILY, (Reported) Insulin Glargine,Hum.rec.anlog 100 Unit/1 Ml Insuln.pen, 15 UNIT SQ HS, (Reported) Loratadine 10 Mg Capsule, 10 MG PO DAILY, (Reported) Magnesium Oxide 250 Mg Tablet, 250 MG PO DAILY, (Reported) Ondansetron 4 Mg Tab.rapdis, 4 MG PO BID Prescribed by: BONG MONROY on 09/23/19 1241 Patient Home Medication List Home Medication List Reviewed: Yes ([place] MOLINA DO) Review of Systems Review of Systems Constitutional: no symptoms reported EENTM: No Symptoms Reported Respiratory: No Symptoms Reported Cardiovascular: No Symptoms Reported Gastrointestinal: Abdominal Pain, Nausea, Vomiting Genitourinary: No Symptoms Reported Musculoskeletal: no symptoms reported Skin: no symptoms reported Psychiatric/Neurological: No Symptoms Reported Endocrine: No Symptoms Reported Hematologic/Lymphatic: No Symptoms Reported (FLOR[place] MOLINA DO) All Other Systems Reviewed Negative Unless Noted: Yes (FLORIDA MOLINA DO) Past Csanzmi-Hfxrnn-Dhiknx Hx Past Med/Social Hx: Reviewed Nursing Past Med/Soc Hx ([place]OR[place] MOLINA DO) Patient Social History 2nd Hand Smoke Exposure: No Recent Hopitalizations: No ([place]OR[place] MOLINA DO) Seasonal Allergies Seasonal Allergies: Yes ([place]OR[place] MOLINA DO) Past Medical History Surgeries: Yes (BRACHYTHERAPY-CERVIX ) Appendectomy, Gallbladder, Tonsillectomy Respiratory: No Cardiac: Yes Hypertension Neurological: Yes Traumatic Brain Injury Sexually Transmitted Disease: No HIV/AIDS: No Genitourinary: No Gastrointestinal: No Musculoskeletal: No Endocrine: Yes Diabetes, Insulin dep HEENT: No Cancer: Yes Cervical Did You Recieve Any Treatments: Yes What Type of Treatment Did You: Radiation Psychosocial: No Integumentary: No Blood Disorders: No (FLOR[place] MOLINA DO) Family Medical History Cardiovascular disease 19 FATHER Diabetes mellitus 19 FATHER G8 BROTHER Respiratory disorder 19 MOTHER Physical Exam Vital Signs Vital Signs - First Documented 11/11/19 16:25 Temp 36.7 Pulse 94 Resp 16 B/P (MAP) 107/56 (73) Pulse Ox 95 O2 Delivery Room Air (LUZ MARIA PINEDA MD) Vital Signs Capillary Refill : ([place]OR[place] MOLINA DO) Height/Weight/BMI Height: '" Weight: lbs. oz. 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, no motor/sensory deficits, alert, normal mood/affect, oriented x 3 Skin: warm/dry, pallor, other (stage 3 sacral decubitus ulcer with foul smelling drainage) ([place]OR[place] MOLINA DO) Focused Exam Lactate Level 11/11/19 17:36: Lactic Acid Level 1.62 (LUZ MARIA PINEDA MD) Lactic Acid Level Laboratory Tests Test 11/11/19 17:36 Lactic Acid Level 1.62 MMOL/L (0.50-2.00) (LUZ MARIA PINEDA MD) Progress/Results/Core Measures Results/Orders Lab Results Laboratory Tests Test 11/11/19 16:40 11/11/19 17:36 Range/Units White Blood Count 4.2 L 4.3-11.0 10^3/uL Red Blood Count 4.34 L 4.35-5.85 10^6/uL Hemoglobin 13.4 11.5-16.0 G/DL Hematocrit 40 35-52 % Mean Corpuscular Volume 92 80-99 FL Mean Corpuscular Hemoglobin 31 25-34 PG Mean Corpuscular Hemoglobin Concent 34 32-36 G/DL Red Cell Distribution Width 14.1 10.0-14.5 % Platelet Count 224 130-400 10^3/uL Mean Platelet Volume 8.7 7.4-10.4 FL Neutrophils (%) (Auto) 87 H 42-75 % Lymphocytes (%) (Auto) 9 L 12-44 % Monocytes (%) (Auto) 3 0-12 % Eosinophils (%) (Auto) 1 0-10 % Basophils (%) (Auto) 0 0-10 % Neutrophils # (Auto) 3.7 1.8-7.8 X 10^3 Lymphocytes # (Auto) 0.4 L 1.0-4.0 X 10^3 Monocytes # (Auto) 0.1 0.0-1.0 X 10^3 Eosinophils # (Auto) 0.0 0.0-0.3 10^3/uL Basophils # (Auto) 0.0 0.0-0.1 10^3/uL Neutrophils % (Manual) 61 % Lymphocytes % (Manual) 9 % Monocytes % (Manual) 5 % Eosinophils % (Manual) 0 % Basophils % (Manual) 0 % Metamyelocytes % 1 % Band Neutrophils 24 % Blood Morphology Comment NORMAL Sodium Level 141 135-145 MMOL/L Potassium Level 3.5 L 3.6-5.0 MMOL/L Chloride Level 99 98-107 MMOL/L Carbon Dioxide Level 25 21-32 MMOL/L Anion Gap 17 H 5-14 MMOL/L Blood Urea Nitrogen 23 H 7-18 MG/DL Creatinine 0.78 0.60-1.30 MG/DL Estimat Glomerular Filtration Rate > 60 BUN/Creatinine Ratio 29 Glucose Level 177 H 70-105 MG/DL Calcium Level 10.3 H 8.5-10.1 MG/DL Corrected Calcium 10.2 H 8.5-10.1 MG/DL Total Bilirubin 0.7 0.1-1.0 MG/DL Aspartate Amino Transf (AST/SGOT) 19 5-34 U/L Alanine Aminotransferase (ALT/SGPT) 6 0-55 U/L Alkaline Phosphatase 66 40-136 U/L Troponin I < 0.30 <0.30 NG/ML Total Protein 8.1 6.4-8.2 GM/DL Albumin 4.1 3.2-4.5 GM/DL Amylase Level 55 25-125 U/L Lipase 20 8-78 U/L Lactic Acid Level 1.62 0.50-2.00 MMOL/L (LUZ MARIA PINEDA MD) Medications Given in ED Current Medications Medications Dose Ordered Sig/Jorge A Route Start Time Stop Time Status Last Admin Dose Admin Iohexol 100 ml ONCE ONCE IV 11/11/19 18:15 11/11/19 18:16 DC 11/11/19 18:32 100 ML Metronidazole 100 ml @ 100 mls/hr ONCE ONCE IV 11/11/19 17:15 11/11/19 18:14 DC 11/11/19 17:48 100 MLS/HR Ondansetron HCl 4 mg ONCE ONCE IVP 11/11/19 17:30 7/5/20 17:31 DC 11/11/19 17:47 4 MG Sodium Chloride 10 ml NEEDED PRN IV 11/11/19 18:15 11/11/19 18:32 10 ML Sodium Chloride 100 ml ONCE ONCE IV 11/11/19 18:15 11/11/19 18:16 DC 11/11/19 18:32 100 ML Vancomycin HCl 1000 mg/Sodium Chloride 250 ml @ 250 mls/hr ONCE ONCE IV 11/11/19 17:15 11/11/19 18:14 DC 11/11/19 19:05 250 MLS/HR (LUZ MARIA PINEDA MD) Vital Signs/I&O 11/11/19 16:25 Temp 36.7 Pulse 94 Resp 16 B/P (MAP) 107/56 (73) Pulse Ox 95 O2 Delivery Room Air (LUZ MARIA PINEDA MD) Progress Progress Note : Progress Note @1800 - Awaiting lab and imaging results. Pt receiving antibiotics for stage 3 sacral decubitus ulcer. Pt care transferred from Dr. Molina to Dr. Laya Pineda at this time. ([place] MOLINA DO) Progress Note : Time: 19:46 Progress Note @1945 Pt feeling better after fluids and meds. Will discharge home with Zofran. Follow up with PCP regarding ulcers. (LUZ MARIA PINEDA MD) EKG : Comment EKG@1646 - normal sinus rhythm, rate of 95, normal axis, no acute ischemic findings noted, no STEMI, reviewed and interpreted by myself ([place] MOLINA DO) Departure Impression Primary Impression: Nausea and vomiting Qualified Codes: R11.2 - Nausea with vomiting, unspecified Additional Impression: Diarrhea Disposition: 01 HOME, SELF-CARE Condition: Improved Departure-Patient Inst. Decision time for Depature: 19:44 (LUZ MARIA PINEDA MD) Referrals: RUSSELL OSORIO DO (PCP) Primary Care Physician OBINNA OSORIO DNP (Family) Primary Care Physician Patient Instructions: Viral Gastroenteritis, Adult (DC) Scripts Ondansetron (Ondansetron Odt) 4 Mg Tab.rapdis 4 MG PO Q6H PRN for NAUSEA/VOMITING, #12 TAB 0 Refills Prov: LUZ MARIA PINEDA MD 11/11/19 [place] MOLINA DO Nov 11, 2019 16:38 LUZ MARIA PINEDA MD Nov 11, 2019 19:47
[2019-11-11 17:11] LABS: HEMATOCRIT 40 % (35-52); HEMOGLOBIN 13.4 G/DL (11.5-16.0); MEAN CORPUSCULAR HEMOGLOBIN 31 PG (25-34); WHITE BLOOD COUNT 4.2 10^3/uL (4.3-11.0)
[2019-11-11 17:12] LABS: BASOPHILS % (AUTO) 0 % (0-10); EOSINOPHILS % (AUTO) 1 % (0-10); LYMPHOCYTES # (AUTO) 0.4 X 10^3 (1.0-4.0); LYMPHOCYTES % (AUTO) 9 % (12-44); MEAN CORPUSCULAR HGB CONC 34 G/DL (32-36); MEAN CORPUSCULAR VOLUME 92 FL (80-99); MEAN PLATELET VOLUME 8.7 FL (7.4-10.4); MONOCYTES # (AUTO) 0.1 X 10^3 (0.0-1.0); MONOCYTES % (AUTO) 3 % (0-12); NEUTROPHILS # (AUTO) 3.7 X 10^3 (1.8-7.8); NEUTROPHILS % (AUTO) 87 % (42-75); PLATELET COUNT 224 10^3/uL (130-400); RED CELL DISTRIBUTION WIDTH 14.1 % (10.0-14.5)
[2019-11-11 17:13] LABS: BAND NEUTROPHILS 24 %; BASOPHILS % (MANUAL) 0 %; EOSINOPHILS % (MANUAL) 0 %; LYMPHOCYTES % (MANUAL) 9 %; METAMYELOCYTES % 1 %; MONOCYTES % (MANUAL) 5 %; NEUTROPHILS % (MANUAL) 61 %; RBC MORPH NORMAL
[2019-11-11] MEDS ORDERED: VANCOMYCIN INJECTION 1,000 MG in NS (IVPB) 250 ML IV ONE (17:15)
[2019-11-11] MEDS ORDERED: NS IV 1000 ML 1,000 ML IV SCH (17:15)
[2019-11-11] MEDS ORDERED: metroNIDAZOLE 500MG/100ML IVPB 100 ML IV ONE (17:15)
[2019-11-11] MEDS ORDERED: ONDANSETRON 4 MG/2 ML (SDV) Z0FRAN IVP ONE (17:30)
--- OUTSIDE RECORDS SUMMARY | 2019-11-11 17:30 | XMS REPORT | Continuity of Care Document ---
Author Organization Unknown Address Unknown Phone Unavailable Allergies Active Description Code Type Severity Reaction Onset Reported/Identified Relationship to Patient Clinical Status Yes No Allergy Information Available [id number] Drug Allergy Unknown N/A 019 Yes ciprofloxacin [id number] Tramaine g Allergy Severe BURNING SENSATI 09/04/2019 Yes Penicillins [id number] Drug Aller gy Severe SOA 09/04/2019 Yes bacitracin [id number] Drug Allerg y Unknown N/A 09/04/2019 Yes benazepril [id number] Drug Allerg y Unknown N/A 09/04/2019 Yes Sulfa (Sulfonamide Antibiotics) [id number] Drug Allergy Unknown N/A 020 Yes Penicillins [id number] Drug Aller gy Severe SOA, pt has [...] KWASI PEREZ MD Ot Z01.411 ENCNTR FOR PRODUCTION ASSEMBLER EXAM (GENERAL) (ROUTINE) 02/28/2019 KWASI PEREZ MD [...] SHIRA GALVAN Ot Z01.4 11 ENCNTR FOR PRODUCTION ASSEMBLER EXAM (GENERAL) (ROUTINE) 03/05/2019 KWASI PEREZ MD [...] RENAL AND URETERAL C 03/06/2019 SHIRA GALVAN RADIO ELECTRICIAN Ot N88.8 OTHER SPECIFIED NONINFLAMMATORY DISORDER 03/06/2019 SHIRA GALVANP Ot N95.0 POSTMENOPAUSAL BLEEDING 03/06/2019 SHIRA GALVAN Ot R59.0 LOCALIZED ENLARGED LYMPH NODES 03/06/2019 SHIRA GALVAN Ot Z01.4 11 ENCNTR FOR PRODUCTION ASSEMBLER EXAM (GENERAL) (ROUTINE) 03/07/2019 KWASI PEREZ MD [...] KWASI PEREZ MD Ot Z01.411 ENCNTR FOR PRODUCTION ASSEMBLER EXAM (GENERAL) (ROUTINE) 03/20/2019 KWASI PEREZ MD [...] 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 OR AB 03/21/2019 SHIRA GALVAN RADIO ELECTRICIAN Ot N13.2 HYDRONEPHROSIS WITH RENAL AND URETERAL C 03/21/2019 SHIRA GALVANP Ot N88.8 OTHER SPECIFIED NONINFLAMMATORY DISORDER 03/21/2019 SHIRA GALVANP Ot N95.0 POSTMENOPAUSAL BLEEDING 03/21/2019 SHIRA GALVANP Ot R59.0 LOCALIZED ENLARGED LYMPH NODES 03/21/2019 SHIRA GALVANP Ot Z01.4 11 ENCNTR FOR PRODUCTION ASSEMBLER EXAM (GENERAL) (ROUTINE) 03/29/2019 KWASI PEREZ MD [...] KWASI PEREZ MD Ot Z01.411 ENCNTR FOR PRODUCTION ASSEMBLER EXAM (GENERAL) (ROUTINE) 03/29/2019 KWASI PEREZ MD [...] OF OTHER ORGANS 05/18/2019 LIYA OSORIORICIA L RADIO ELECTRICIAN Ot E11.69 TYPE 2 DIABETES MELLITUS WITH OTHER SPEC 05/18/2019 OSORIO OBINNA L RADIO ELECTRICIAN Ot E11.69 TYPE 2 DIABETES MELLITUS WITH OTHER SPEC 05/18/2019 OSORIO, OBINNA L RADIO ELECTRICIAN Ot D64.89 OTHER SPECIFIED ANEMIAS 05/18/2019 DEVON OBINNA L RADIO ELECTRICIAN Ot E11.69 TYPE 2 DIABETES MELLITUS WITH OTHER SPEC 05/18/2019 DEVON OBINNA L RADIO ELECTRICIAN Ot E83.42 HYPOMAGNESEMIA 05/18/2019 DEVON OBINNA L RADIO ELECTRICIAN Ot E86.0 DEHYDRATION 05/18/2019 DEVON OBINNA L RADIO ELECTRICIAN Ot R06.09 OTHER FORMS OF DYSPNEA 05/18/2019 DEVON OBINNA L RADIO ELECTRICIAN Ot E11.69 TYPE 2 DIABETES MELLITUS WITH OTHER SPEC 05/22/2019 SHIRA GALVAN RADIO ELECTRICIAN Ot K57.3 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 05/22/2019 SHIRA GALVAN RADIO ELECTRICIAN Ot N13.2 HYDRONEPHROSIS WITH RENAL AND URETERAL C 05/22/2019 SHIRA GALVAN RADIO ELECTRICIAN Ot N88.8 OTHER SPECIFIED NONINFLAMMATORY DISORDER 05/22/2019 SHIRA GALVANP Ot N95.0 POSTMENOPAUSAL BLEEDING 05/22/2019 SHIRA GALVANP Ot R59.0 LOCALIZED ENLARGED LYMPH NODES 05/22/2019 SHIRA GALVANP Ot Z01.4 11 ENCNTR FOR PRODUCTION ASSEMBLER EXAM (GENERAL) (ROUTINE) 05/24/2019 OBINNA OSORIO L RADIO ELECTRICIAN Ot E83.42 HYPOMAGNESEMIA 05/24/2019 OSORIO, OBINNA L RADIO ELECTRICIAN Ot E86.0 DEHYDRATION 05/24/2019 OSORIO, OBINNA L RADIO ELECTRICIAN Ot Z88.0 ALLERGY STATUS TO PENICILLIN 05/24/2019 OSORIO, OBINNA L RADIO ELECTRICIAN Ot Z88.2 ALLERGY STATUS TO SULFONAMIDES STATUS 05/26/2019 OSORIO, OBINNA L RADIO ELECTRICIAN Ot E83.42 HYPOMAGNESEMIA 05/26/2019 OSORIO, OBINNA L RADIO ELECTRICIAN Ot E86.0 DEHYDRATION 05/26/2019 OSORIO, OBINNA L RADIO ELECTRICIAN Ot Z88.0 ALLERGY STATUS TO PENICILLIN 05/26/2019 OSORIO, OBINNA L RADIO ELECTRICIAN Ot Z88.2 ALLERGY STATUS TO SULFONAMIDES STATUS 05/28/2019 OSORIO, OBINNA L RADIO ELECTRICIAN Ot E83.42 HYPOMAGNESEMIA 05/28/2019 OSORIO, OBINNA L RADIO ELECTRICIAN Ot E86.0 DEHYDRATION 05/28/2019 OSORIO, OBINNA L RADIO ELECTRICIAN Ot Z88.0 ALLERGY STATUS TO PENICILLIN 05/28/2019 OSORIO, OBINNA L RADIO ELECTRICIAN Ot Z88.2 ALLERGY STATUS TO SULFONAMIDES STATUS [...] HISTORY OF ANTINEOPLASTIC CHEMO 06/11/2019 OBINNA OSORIO RADIO ELECTRICIAN Ot E83.42 HYPOMAGNESEMIA 06/11/2019 OBINNA OSORIO RADIO ELECTRICIAN Ot E86.0 DEHYDRATION 06/11/2019 OBINNA OSORIO RADIO ELECTRICIAN Ot J70.1 CHRONIC AND OTHER PULMONARY MANIFESTATIO 06/11/2019 OBINNA OSORIO RADIO ELECTRICIAN Ot J90 PLEURAL EFFUSION, NOT ELSEWHERE CLASSIFI 06/12/2019 OBINNA OSORIO RADIO ELECTRICIAN Ot J70.1 CHRONIC AND OTHER PULMONARY MANIFESTATIO 06/12/2019 OBINNA OSORIO RADIO ELECTRICIAN Ot J90 PLEURAL EFFUSION, NOT ELSEWHERE CLASSIFI 06/12/2019 OBINNA OSORIO RADIO ELECTRICIAN Ot E83.42 HYPOMAGNESEMIA 06/12/2019 OBINNA OSORIO RADIO ELECTRICIAN Ot E86.0 DEHYDRATION 06/15/2019 MENDEZ DO, ANGE [...] TO OTH DRUG/MEDS/BIOL SUB 06/17/2019 OBINNA OSORIO RADIO ELECTRICIAN Ot E83.42 HYPOMAGNESEMIA 06/17/2019 OBINNA OSORIO RADIO ELECTRICIAN Ot E86.0 DEHYDRATION 06/19/2019 MEDNEZ DO, ANGE L Ot J11.1 FLU DUE [...] ANGE L Ot Z88.8 ALLERGY STATUS TO [facility] DRUG/MEDS/BIOL SUB 06/25/2019 OSORIO, OBINNA L RADIO ELECTRICIAN Ot E83.42 HYPOMAGNESEMIA 06/25/2019 OSORIO, OBINNA L RADIO ELECTRICIAN Ot E86.0 DEHYDRATION 06/25/2019 OSORIO, OBINNA L RADIO ELECTRICIAN Ot E87.6 HYPOKALEMIA 06/25/2019 OSORIO OBINNA L RADIO ELECTRICIAN Ot K52.9 NONINFECTIVE GASTROENTERITIS AND COLITIS 06/25/2019 OSORIO, OBINNA L RADIO ELECTRICIAN Ot N39.0 URINARY TRACT INFECTION, SITE NOT SPECIF 06/25/2019 OSORIO, OBINNA L RADIO ELECTRICIAN Ot R68.89 OTHER GENERAL SYMPTOMS AND SIGNS 06/25/2019 DEVON OBINNA L RADIO ELECTRICIAN Ot R68.89 OTHER GENERAL SYMPTOMS AND SIGNS 06/26/2019 ISHAAN MENDEZ, MARIANNE Cunningham Ot D68.9 COAGULATION DEFECT, UNSPECIFIED 06/26/2019 ISHAAN MENDEZ, MARIANNE Cunningham Ot I 96 GANGRENE, NOT ELSEWHERE CLASSIFIED 06/26/2019 ISHAAN MENDEZ, MARIANNE Cunningham Ot 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, STAGE 3 06/26/2019 ISHAAN MENDEZ, MARIANNE Cunningham Ot N39.0 URINARY TRACT INFECTION, SITE NOT SPECIF 06/26/2019 DEVON OBINNA L RADIO ELECTRICIAN Ot E83.42 HYPOMAGNESEMIA 06/26/2019 LIYA OSORIORICIA L RADIO ELECTRICIAN Ot E86.0 DEHYDRATION 06/26/2019 LIYA OSORIORICIA L RADIO ELECTRICIAN Ot E87.6 HYPOKALEMIA 06/26/2019 LIYA OSORIORICIA L RADIO ELECTRICIAN Ot K52.9 NONINFECTIVE GASTROENTERITIS AND COLITIS 06/26/2019 LIYA OSORIORICIA L RADIO ELECTRICIAN Ot N39.0 URINARY TRACT INFECTION, SITE NOT SPECIF 06/26/2019 OSORIO, OBINNA L RADIO ELECTRICIAN Ot R68.89 OTHER GENERAL SYMPTOMS AND SIGNS 06/28/2019 LIYA OSORIORICIA L RADIO ELECTRICIAN Ot E83.42 HYPOMAGNESEMIA 06/28/2019 OSORIO, OBINNA L RADIO ELECTRICIAN Ot E86.0 DEHYDRATION 06/28/2019 LIYA OSORIORICIA L RADIO ELECTRICIAN Ot J70.1 CHRONIC AND OTHER PULMONARY MANIFESTATIO 06/28/2019 WIL OSORIOIA L RADIO ELECTRICIAN Ot J90 PLEURAL EFFUSION, NOT ELSEWHERE CLASSIFI 06/29/2019 LIYA OSORIORICIA L RADIO ELECTRICIAN Ot E83.42 HYPOMAGNESEMIA 06/29/2019 OSORIO, OBINNA L RADIO ELECTRICIAN Ot E86.0 DEHYDRATION 07/03/2019 OSORIO, OBINNA L RADIO ELECTRICIAN Ot E83.42 HYPOMAGNESEMIA 07/03/2019 OSORIO, OBINNA L RADIO ELECTRICIAN Ot E86.0 DEHYDRATION 07/03/2019 SARA MONCADA Ot 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, ABEBA B Ot Z01.8 18 ENCOUNTER FOR OTHER PREPROCEDURAL EXAMIN 07/13/2019 [facility] DO, ABEBA B Ot Z01.8 18 ENCOUNTER FOR OTHER PREPROCEDURAL EXAMIN 07/13/2019 LIYA OSORIORICIA L RADIO ELECTRICIAN Ot E83.42 HYPOMAGNESEMIA 07/13/2019 DEVON, OBINNA L RADIO ELECTRICIAN Ot E86.0 DEHYDRATION 07/16/2019 OSORIO, OBINNA L RADIO ELECTRICIAN Ot E83.42 HYPOMAGNESEMIA 07/16/2019 OSORIO, OBINNA L RADIO ELECTRICIAN Ot E86.0 DEHYDRATION 07/16/2019 DEVON, OBINNA L RADIO ELECTRICIAN Ot E83.42 HYPOMAGNESEMIA 07/16/2019 OSORIO, OBINNA L RADIO ELECTRICIAN Ot E86.0 DEHYDRATION 07/16/2019 OSORIO, OBINNA L RADIO ELECTRICIAN Ot E83.42 HYPOMAGNESEMIA 07/16/2019 OSORIO, OBINNA L RADIO ELECTRICIAN Ot E86.0 DEHYDRATION 07/16/2019 OSORIO, OBINNA L RADIO ELECTRICIAN Ot E83.42 HYPOMAGNESEMIA 07/16/2019 OSORIO, OBINNA L RADIO ELECTRICIAN Ot E86.0 DEHYDRATION 07/20/2019 CATALINA CHEN RADIO ELECTRICIAN Ot J 90 PLEURAL EFFUSION, NOT ELSEWHERE CLASSIFI 07/20/2019 RUSSELL OSORIO DO Ot R05 COUGH 07/24/2019 APRIL CATALINA S RADIO ELECTRICIAN Ot 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 07/24/2019 CHEN, CATALINA S RADIO ELECTRICIAN Ot J 90 PLEURAL EFFUSION, NOT ELSEWHERE CLASSIFI 07/24/2019 CHEN CATALINA S RADIO ELECTRICIAN Ot K43.9 VENTRAL HERNIA WITHOUT OBSTRUCTION OR GA 07/24/2019 APRIL HILAH S RADIO ELECTRICIAN Ot K57.3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 07/24/2019 APRIL CATALINA S RADIO ELECTRICIAN Ot N20.0 CALCULUS OF KIDNEY 07/24/2019 CHEN, HILAH S RADIO ELECTRICIAN Ot R06.00 DYSPNEA, UNSPECIFIED 07/24/2019 CHEN HILAH S RADIO ELECTRICIAN Ot R59.0 LOCALIZED ENLARGED LYMPH NODES 07/25/2019 Ot 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 07/26/2019 APRIL LUCYAH S RADIO ELECTRICIAN Ot 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 07/26/2019 APRIL CATALINA S RADIO ELECTRICIAN Ot J 90 PLEURAL EFFUSION, NOT ELSEWHERE CLASSIFI 07/26/2019 APRIL CATALINA S RADIO ELECTRICIAN Ot K43.9 VENTRAL HERNIA WITHOUT OBSTRUCTION OR GA 07/26/2019 APRLI CATALINA S RADIO ELECTRICIAN Ot K57.3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 07/26/2019 APRIL CATALINA S RADIO ELECTRICIAN Ot N20.0 CALCULUS OF KIDNEY 07/26/2019 APRIL CATALINA S RADIO ELECTRICIAN Ot R06.00 DYSPNEA, UNSPECIFIED 07/26/2019 APRIL CATALINA S RADIO ELECTRICIAN Ot R59.0 LOCALIZED ENLARGED LYMPH NODES 07/27/2019 OBINNA OSORIO RADIO ELECTRICIAN Ot E83.42 HYPOMAGNESEMIA 07/27/2019 OBINNA OSORIO L RADIO ELECTRICIAN Ot E86.0 DEHYDRATION 08/07/2019 RUSSELL OSORIO DO Ot R05 COUGH 08/07/2019 APRIL CATALINA S RADIO ELECTRICIAN Ot J 90 PLEURAL EFFUSION, NOT ELSEWHERE CLASSIFI 08/10/2019 MATHEW GILMORE APRN Ot M79.89 OTHER SPECIFIED SOFT TISSUE DISORDERS 08/14/2019 Ot 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 08/15/2019 CATALINA CHEN RADIO ELECTRICIAN Ot 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 08/15/2019 CATALINA CHEN RADIO ELECTRICIAN Ot J 90 PLEURAL EFFUSION, NOT ELSEWHERE CLASSIFI 08/15/2019 CATALINA CHEN RADIO ELECTRICIAN Ot K43.9 VENTRAL HERNIA WITHOUT OBSTRUCTION OR GA 08/15/2019 CATALINA CHEN RADIO ELECTRICIAN Ot K57.3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 08/15/2019 CATALINA CHEN RADIO ELECTRICIAN Ot N20.0 CALCULUS OF KIDNEY 08/15/2019 CATALINA CHEN RADIO ELECTRICIAN Ot R06.00 DYSPNEA, UNSPECIFIED 08/15/2019 CATALINA CHEN RADIO ELECTRICIAN Ot R59.0 LOCALIZED ENLARGED LYMPH NODES 08/20/2019 SARA MONCADA Ot 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 9 MALIGNANT NEOPLASM OF CERVIX UTERI, [facility] 09/05/2019 DEE DEE LOWRY MD Ot [...] DEE DEE LOWRY MD Ot Z79. 4 SKILLED NURSING (CURRENT) USE OF INSULIN 09/05/2019 DEE DEE LOWRY MD, Ot Z87.820 PERSONAL HISTORY OF TRAUMATIC BRAIN INJU 09/05/2019 DEE DEE LOWRY MD Ot Z90. 49 ACQUIRED ABSENCE OF OTHER SPECIFIED PART 09/05/2019 DEE DEE LOWRY MD, Ot Z90. 89 ACQUIRED ABSENCE OF OTHER ORGANS 09/23/2019 BONG MONROY MD Ot E11.9 TYPE 2 DIABETES MELLITUS WITHOUT COMPLIC 09/23/2019 BONG MONROY MD Ot R10.9 UNSPECIFIED ABDOMINAL PAIN 09/23/2019 BONG MONROY MD, Ot R11.2 NAUSEA WITH VOMITING, UNSPECIFIED 09/23/2019 BONG MONROY MD, Ot R19.7 DIARRHEA, UNSPECIFIED 09/23/2019 BONG MONROY MD, Ot Z79.4 BOARDING HOUSE COOK (CURRENT) USE OF INSULIN 09/23/2019 BONG MONROY MD, Ot Z82.49 FAMILY HX OF ISCHEM HEART DIS AND OTH DI 09/23/2019 BONG MONROY MD, Ot Z85.41 PERSONAL HISTORY OF MALIGNANT NEOPLASM O 09/23/2019 BONG MONROY MD, Ot Z87.820 PERSONAL HISTORY OF TRAUMATIC BRAIN INJU 09/23/2019 BONG MONROY MD, Ot Z88.0 ALLERGY STATUS TO PENICILLIN 09/23/2019 BONG MONROY MD, Ot Z88.1 ALLERGY STATUS TO OTHER ANTIBIOTIC AGENT 09/23/2019 BONG MONROY MD, Ot Z88.2 ALLERGY STATUS TO SULFONAMIDES STATUS 09/23/2019 BONG MONROY MD, Ot Z88.8 ALLERGY STATUS TO OTH DRUG/MEDS/BIOL SUB 09/26/2019 BONG MONROY MD Ot E11.9 TYPE 2 DIABETES MELLITUS WITHOUT COMPLIC 09/26/2019 BONG MONROY MD Ot R10.9 UNSPECIFIED ABDOMINAL PAIN 09/26/2019 BONG MONROY MD, Ot R11.2 NAUSEA WITH VOMITING, UNSPECIFIED 09/26/2019 BONG MONROY MD Ot R19.7 DIARRHEA, UNSPECIFIED 09/26/2019 BONG MONROY MD Ot Z79.4 SKILLED NURSING (CURRENT) USE OF INSULIN 09/26/2019 BONG MONROY MD Ot Z82.49 FAMILY HX OF ISCHEM HEART DIS AND OTH DI 09/26/2019 PORFIRIO MENDEZ, BONG Hawkins Ot Z85.41 PERSONAL HISTORY OF MALIGNANT NEOPLASM O 09/26/2019 PORFIRIO MENDEZ, BONG Hawkins Ot Z87.820 PERSONAL HISTORY OF TRAUMATIC BRAIN INJU 09/26/2019 PORFIRIO MENDEZ, BONG Hawkins Ot Z88.0 ALLERGY STATUS TO PENICILLIN 09/26/2019 BONG MONROY MD Ot Z88.1 ALLERGY STATUS TO OTHER ANTIBIOTIC AGENT 09/26/2019 PORFIRIO MENDEZ, BONG Hawkins Ot Z88.2 ALLERGY STATUS TO SULFONAMIDES STATUS 09/26/2019 PORFIRIO MENDEZ, BONG Hawkins Ot Z88.8 ALLERGY STATUS TO OTH DRUG/MEDS/BIOL SUB 10/03/2019 [facility], RYLAND Walters Ot E11.9 TYPE 2 DIABETES MELLITUS WITHOUT COMPLIC 10/03/2019 [facility] Ot E83.42 HYPOMAGNESEMIA 10/03/2019 [facility] Ot E87.6 HYPOKALEMIA 10/03/2019 [facility] Ot K59.00 CONSTIPATION, UNSPECIFIED 10/03/2019 [facility] Ot N13.2 HYDRONEPHROSIS WITH RENAL AND URETERAL C [facility]03[facility] R[facility].11 RIGHT UPPER QUADRANT PAIN 10/03/2019 [facility] Ot Z79.4 SKILLED NURSING (CURRENT) USE OF INSULIN 10/03/2019 [facility] Ot Z82.49 FAMILY HX OF ISCHEM HEART DIS AND OTH DI 10/03/[facility] Ot Z85.41 PERSONAL HISTORY OF MALIGNANT NEOPLASM O 10/03/2019 [facility], RYLAND Walters Ot Z87.820 PERSONAL HISTORY OF TRAUMATIC BRAIN INJU 10/03/2019 [facility], RYLAND Walters Ot Z88.0 ALLERGY STATUS TO PENICILLIN 10/03/2019 [facility], RYLAND Walters Ot Z88.1 ALLERGY STATUS TO OTHER ANTIBIOTIC AGENT 10/03/2019 [facility], RYLAND Walters Ot Z88.2 ALLERGY STATUS TO SULFONAMIDES STATUS 10/03/2019 [facility] Ot Z88.8 ALLERGY STATUS TO OTH DRUG/MEDS/BIOL SUB 10/05/2019 TUBBS, PETER J PHD INTERNSHIP Ot E11 .9 TYPE 2 DIABETES MELLITUS WITHOUT COMPLIC 10/05/2019 CHIN TUBBS PHD INTERNSHIP Ot K43 .2 INCISIONAL HERNIA WITHOUT OBSTRUCTION OR 10/05/2019 CHIN TUBBS APRN Ot K59.00 CONSTIPATION, UNSPECIFIED 10/05/2019 CHIN TUBBS APRN Ot R10 .9 UNSPECIFIED ABDOMINAL PAIN 10/05/2019 CHIN TUBBS APRN Ot Z79 .4 BOARDING HOUSE COOK (CURRENT) USE OF INSULIN 10/05/2019 CHIN TUBBS APRN Ot Z82.49 FAMILY HX OF ISCHEM HEART DIS AND OTH DI 10/05/2019 CHIN TUBBS APRN Ot Z85.41 PERSONAL HISTORY OF MALIGNANT NEOPLASM O 10/05/2019 CHIN TUBBS APRN Ot Z87.820 PERSONAL HISTORY OF TRAUMATIC BRAIN INJU 10/05/2019 CHIN TUBBS APRN Ot Z88 .0 ALLERGY STATUS TO PENICILLIN 10/05/2019 CHIN TUBBS APRN Ot Z88 .1 ALLERGY STATUS TO OTHER ANTIBIOTIC AGENT 10/05/2019 CHIN TUBBS APRN Ot Z88 .2 ALLERGY STATUS TO SULFONAMIDES STATUS 10/05/2019 CHIN TUBBS APRN Ot Z88 .8 ALLERGY STATUS TO OTH DRUG/MEDS/BIOL SUB 10/05/2019 OBINNA OSORIO RADIO ELECTRICIAN Ot E83.42 HYPOMAGNESEMIA 10/05/2019 OBINNA OSORIO RADIO ELECTRICIAN Ot E86.0 DEHYDRATION 10/16/2019 OBINNA OSORIO RADIO ELECTRICIAN Ot E83.42 HYPOMAGNESEMIA 10/16/2019 OBINNA OSORIO RADIO ELECTRICIAN Ot E86.0 DEHYDRATION 11/01/2019 CATALINA CHEN RADIO ELECTRICIAN Ot 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 Results Test [...] culture - 02/28/19 14:50 Bacterial urine culture [id number] NRG COLONY COUNT >100,000/ML NRG FTX;REPORTABLE SUSCEPTIBILITY [...] pa esteban - 03/01/19 08:32 WRISTBAND NUMBER [id number] NRG ABO+Rh group AP NRG Blood group [...] anisocytosis detection by light microscopy S LIGHT [facility] Comprehensive metabolic panel - 06/04/19 15:35 Serum [...] A AND B ANTIGENS BY IA NRG Automated blood complete blood count (he [...] INFLUENZA A AND B ANTIGENS BY IA [facility] Comprehensive metabolic panel - 06/15/19 12:00 Serum [...] culture - 09/04/19 14:40 Bacterial urine culture [id number] NRG COLONY COUNT 10,000 CFU/ML NRG SUSCEPTIBILITY SUSCEPTIBILITY REPORTED 09/08/19 10:0 5 NRG RAPID ID PRELIM RAPID ID BY [facility] [id number] NRG ID CONFIRMATION ID CONFIRMED [id number] NRG Dirithromycin susceptibility test by dis k [...] Status Pt. Type Provider Facility Loc./Unit Complaint [id number] 10/30/2019 09:32:00 23:59:59 CLS Outpatient CATALINA CHEN [facility] RAD CERVICAL CARCIN MARGARET [id number] 07/27/2019 11:00:00 00:01:00 DIS Outpatient OBINNA OSORIO [facility] SDC DEHYDRATION,CHR ONIC LOW MAG [id number] 10/02/2019 18:32:00 20:54:00 DIS Outpatient CHIN TUBBS APRN [facility] ER ABD PAIN, CONSTIPATION [id number] 09/29/2019 09:39:00 12:53:00 DIS Outpatient RYLAND CORRALES DO [facility] ER FS ABD PROTRUSION [id number] 09/23/2019 11:31:00 13:20:00 DIS Emergency BONG MONROY MD [facility] ER FS ABD PAIN [id number] 09/04/2019 16:40:00 14:45:00 DIS Outpatient ALEN MENDEZ, DEE DEE Dumont [facility] 4TH ORTHOSTATIC HYPOTENSION ,NEAR SYNCOPE,DECUBITUS ULC [id number] 08/20/2019 08:00:00 23:59:59 CLS Preadmit MATHEW GILMORE APRN [facility] RAD LEG SWELLING [id number] 07/17/2019 10:27:00 00:01:00 DIS Outpatient SARA MONCADA [facility] ONC [id number] 07/23/2019 13:45:00 23:59:59 CLS Outpatient CATALINA CHEN [facility] RAD DYSPNEA,CERVICA L CARCINOMA [id number] 07/18/2019 16:23:00 23:59:59 CLS Outpatient RUSSELL OSORIO DO [facility] LAB FS COUGH [id number] 07/18/2019 08:00:00 23:59:59 CLS Preadmit ABEBA SALAMANCA DO, [facility] HISTORY OF CANCER [id number] 07/17/2019 12:32:00 23:59:59 CLS Outpatient CATALINA CHEN [facility] RAD [id number] 07/12/2019 11:30:00 23:59:59 CLS Outpatient ABEBA SALAMANCA DO [facility] PREOP HISTORY OF CANCER [id number] 06/28/2019 14:13:00 23:59:59 CLS Outpatient OBINNA OSORIO [facility] DEHYDRATION,CHR ONS LOW MG [id number] 06/25/2019 11:44:00 14:40:00 DIS Outpatient OBINNA OSORIO [facility] GASTROENTITIS,DEHYDRATION,UTI [id number] 06/15/2019 11:14:00 12:59:00 DIS Emergency MENDEZ ANGE JASON [facility] ER FS VOMITING; DIARRHEA; HYPERGLYCEMIA; SOB [id number] 06/11/2019 14:25:00 23:59:59 CLS Outpatient OBINNA OSORIO [facility] RAD CHRONIC AND OTH ER PULMONARY MANIFESTATIONS DUE TO [id number] 06/11/2019 10:50:00 23:59:59 CLS Preadmit ISHAAN MENDEZ, MARIANNE Cunningham [facility] WOUNDCARE [id number] 06/11/2019 12:10:00 14:55:00 DIS Outpatient OBINNA OSORIO [facility] LOW MG,DEHYDRAT ION [id number] 06/04/2019 15:20:00 18:44:00 DIS Emergency ROVENSTBINDU REYES DO [facility] ER FS SOA [id number] 05/28/2019 14:01:00 23:59:59 CLS Outpatient ISHAAN MENDEZ, MARIANNE Cunningham [facility] WOUNDCARE [id number] 05/24/2019 12:56:00 16:10:00 DIS Outpatient OBINNA OSORIO [facility] DEHYDRATION,LOW MAGNESIUM [id number] 05/18/2019 11:32:00 15:50:00 DIS Outpatient OBINNA OSORIO [facility] TYPE 2 DIABETES,DEHYDRATION,LOW MAGNESIUM [id number] 03/01/2019 08:10:00 11:36:00 DIS Emergency KWASI PEREZ MD [facility] ER VAGINAL BLEEDING [id number] 02/28/2019 11:58:00 23:59:59 CLS Outpatient SHIRA GALVANP [facility] RAD POSTMENOPAUSAL BLEEDING [id number] 02/28/2019 13:56:00 019 17:27:00 DIS Emergency ANA MENDEZ, KWASI [facility] ER ABNORMAL [id number] 08/21/2019 00:00:00 Document Registration [id number] 07/21/2019 18:10:00 Document Registration
[2019-11-11 17:57] LABS: BILIRUBIN,TOTAL 0.7 MG/DL (0.1-1.0); BUN/CREATININE RATIO 29; CALCIUM 10.3 MG/DL (8.5-10.1); CARBON DIOXIDE 25 MMOL/L (21-32); CHLORIDE 99 MMOL/L (98-107); CREATININE SERUM 0.78 MG/DL (0.60-1.30); GFR ESTIMATED > 60; GLUCOSE 177 MG/DL (70-105); POTASSIUM 3.5 MMOL/L (3.6-5.0); SODIUM 141 MMOL/L (135-145)
[2019-11-11 17:58] LABS: ALANINE AMINOTRANSFERASE 6 U/L (0-55); ALBUMIN 4.1 GM/DL (3.2-4.5); ALKALINE PHOSPHATASE 66 U/L (40-136); TOTAL PROTEIN 8.1 GM/DL (6.4-8.2)
--- NOTE | 2019-11-11 18:00 | NUR ---
Patient's updated at this time.
[2019-11-11] MEDS ORDERED: IOHEXOL 350 MG/ML 100 ML (OMNIPAQUE 350) VIAL IV ONE (18:15)
[2019-11-11] MEDS ORDERED: NS 100 ML (IVPB) BAG IV ONE (18:15)
[2019-11-11] MEDS ORDERED: HOLD METFORMIN - RECEIVED CONTRAST 20 ML VIAL IV SCH (18:15)
[2019-11-11] MEDS ORDERED: CATHETER FLUSH 10 ML SYR IV PRN (18:15)
[2019-11-11 18:32] LABS: AMYLASE 55 U/L (25-125); LIPASE 20 U/L (8-78)
--- NOTE | 2019-11-11 19:00 | Diagnostic Imaging Report ---
PROCEDURE: CT abdomen and pelvis with contrast. TECHNIQUE: Multiple contiguous axial images were obtained through the abdomen and pelvis after administration of intravenous contrast. Auto Exposure Controls were utilized during the CT exam to meet ALARA standards for radiation dose reduction. INDICATION: Nausea, vomiting. COMPARISON: 09/29/2019 and PET/CT dated November 11, 2019. FINDINGS: The visualized lung bases are clear. The liver and spleen are unremarkable. The adrenal glands are unremarkable. The pancreas is unremarkable. The gallbladder is not definitely visualized. Multiple left-sided renal calculi are again identified, including a 1.6 cm calculus within the left renal pelvis. There is resulting mild to moderate left-sided hydronephrosis, appearing similar to the prior examination. The left ureter is unremarkable. Mild vascular calcium without aneurysmal dilatation of the abdominal aorta. Colon containing right upper quadrant abdominal wall hernia is noted anterolaterally. This appears stable from the prior examination. This does demonstrate a narrow neck, though there is no evidence of resulting bowel obstruction. The urinary bladder is unremarkable. The uterus is unremarkable. Fat stranding within the lower pelvis is again identified, though appears improved from the prior exam, felt to relate to prior treatment changes. No adenopathy, free air or free fluid. Diffuse anasarca is present. Scattered osseous degenerative changes without acute osseous abnormality. There is resulting relatively high-grade bilateral neural foraminal stenosis within the lumbar spine, particularly at L4/L5 and L5/S1. IMPRESSION: 1. Multiple left renal calculi are again identified with resulting mild to moderate left-sided hydronephrosis. This appears relatively stable from prior imaging. 2. Small neck large bowel containing right upper quadrant anterolateral abdominal wall hernia appearing stable from the prior exam without resulting bowel obstruction. 3. Posttreatment changes noted within the lower pelvis. 4. Diffuse anasarca. 5. Additional findings as above. Dictated by: Dictated on workstation # [id number]
[2019-11-11] MEDS ORDERED: ONDA4TAB11 PO (19:46)
[2019-11-11 20:05] VITALS: BP 117/50
== END 2019-11-11 20:05 | disposition home or self-care (01) ==
LOC: EDUNIT# 16:24 → ER FS 16:25
DX: R11.2 Nausea with vomiting, unspecified (principal); R19.7 Diarrhea, unspecified; E11.9 Type 2 diabetes mellitus without complications; I10 Essential (primary) hypertension; Z88.0 Allergy status to penicillin; Z88.1 Allergy status to other antibiotic agents; Z88.2 Allergy status to sulfonamides; Z88.8 Allergy status to other drugs, medicaments and biological substances; Z79.4 Long term (current) use of insulin; Z79.899 Other long term (current) drug therapy; Z85.41 Personal history of malignant neoplasm of cervix uteri; Z87.820 Personal history of traumatic brain injury; Z92.3 Personal history of irradiation
CPT/HCPCS: 36415; 74177; 80053; 82150; 83605; 83690; 84484; 85007; 85027; 87040; 93005

== ENCOUNTER 2019-12-11 15:18 | Outpatient (RCR) | payer MEDICARE, OTHER ==
[2019-12-11 15:58] LABS: BASOPHILS % (AUTO) 0 % (0-10); EOSINOPHILS # (AUTO) 0.1 10^3/uL (0.0-0.3); EOSINOPHILS % (AUTO) 2 % (0-10); HEMATOCRIT 37 % (35-52); HEMOGLOBIN 12.3 G/DL (11.5-16.0); LYMPHOCYTES # (AUTO) 0.5 X 10^3 (1.0-4.0); LYMPHOCYTES % (AUTO) 15 % (12-44); MEAN CORPUSCULAR HEMOGLOBIN 31 PG (25-34); MEAN CORPUSCULAR HGB CONC 34 G/DL (32-36); MEAN CORPUSCULAR VOLUME 91 FL (80-99); MEAN PLATELET VOLUME 8.3 FL (7.4-10.4); MONOCYTES # (AUTO) 0.2 X 10^3 (0.0-1.0); MONOCYTES % (AUTO) 6 % (0-12); NEUTROPHILS # (AUTO) 2.5 X 10^3 (1.8-7.8); NEUTROPHILS % (AUTO) 77 % (42-75); PLATELET COUNT 186 10^3/uL (130-400); WHITE BLOOD COUNT 3.2 10^3/uL (4.3-11.0)
[2019-12-11 16:18] LABS: ALANINE AMINOTRANSFERASE 7 U/L (0-55); ALBUMIN 3.8 GM/DL (3.2-4.5); ALKALINE PHOSPHATASE 57 U/L (40-136); BILIRUBIN,TOTAL 0.5 MG/DL (0.1-1.0); BUN/CREATININE RATIO 29; CALCIUM 9.9 MG/DL (8.5-10.1); CARBON DIOXIDE 25 MMOL/L (21-32); CHLORIDE 104 MMOL/L (98-107); GFR ESTIMATED > 60; GLUCOSE 142 MG/DL (70-105); MAGNESIUM 1.4 MG/DL (1.6-2.4); POTASSIUM 3.7 MMOL/L (3.6-5.0); SODIUM 139 MMOL/L (135-145); TOTAL PROTEIN 7.2 GM/DL (6.4-8.2)
[2019-12-14] MEDS ORDERED: MV-M1TAB57 PO (11:04)
[2019-12-19] MEDS ORDERED: HYDR-4226 PO (10:04)
== END 2020-03-10 | disposition home or self-care (01) ==
LOC: ONC 15:18
PROVIDERS: ATTEND Internal Medicine Hematology & Oncology
DX: C53.9 Malignant neoplasm of cervix uteri, unspecified (principal); K46.9 Unspecified abdominal hernia without obstruction or gangrene; I10 Essential (primary) hypertension; E11.9 Type 2 diabetes mellitus without complications; R59.0 Localized enlarged lymph nodes; Z92.3 Personal history of irradiation
CPT/HCPCS: 80053; 83735; 84443; 85025; G0463; 99213

== ENCOUNTER 2019-12-14 10:44 | Outpatient (CLI) | payer MEDICARE, OTHER ==
[~2019-12-14] VITALS: Ht 165.1 cm; Wt 63.2 kg
[2019-12-14] MEDS ORDERED: MV-M1TAB57 PO (11:04)
== END 2019-12-14 11:21 | disposition home or self-care (01) ==
LOC: PREOP 10:44
PROVIDERS: ATTEND Surgery
DX: Z01.818 Encounter for other preprocedural examination (principal)

== ENCOUNTER 2019-12-19 07:42 | Day surgery (SDC) | payer MEDICARE, OTHER ==
[2019-12-19] VITALS (11 sets, daily range): BP systolic 136–152; BP diastolic 64–76
[~2019-12-19] VITALS: Ht 165.1 cm; Wt 63.2 kg
[~2019-12-19 07:42] MED LIST changes: +MV-M1TAB57 PO
--- OUTSIDE RECORDS SUMMARY | 2019-12-19 07:46 | XMS REPORT | Continuity of Care Document ---
Author Organization Unknown Address Unknown Phone Unavailable Allergies Active Description Code Type Severity Reaction Onset Reported/Identified Relationship to Patient Clinical Status Yes No Allergy Information Available [id number] Drug Allergy Unknown N/A 019 Yes ciprofloxacin [id number] Tramaine g Allergy Severe BURNING SENSATI 09/04/2019 Yes Penicillins [id number] Drug Aller gy Severe SOA 09/04/2019 Yes bacitracin [id number] Drug Allerg y Unknown N/A 09/04/2019 Yes benazepril [id number] Drug Allerg y Unknown N/A 09/04/2019 Yes Sulfa (Sulfonamide Antibiotics) [id number] Drug Allergy Unknown N/A 020 Yes Penicillins [id number] Drug Aller gy Severe SOA, pt has rec 09/05/2019 Yes nut - unspecified [id number] Drug Allergy Unknown N/A 12/14/2019 Medications There is no data. Problems Date [...] KWASI PEREZ MD Ot Z01.411 ENCNTR FOR INDOOR LANDSCAPER/GARDENER EXAM (GENERAL) (ROUTINE) 02/28/2019 KWASI PEREZ MD [...] SHIRA GALVANP Ot Z01.4 11 ENCNTR FOR INDOOR LANDSCAPER/GARDENER EXAM (GENERAL) (ROUTINE) 03/05/2019 KWASI PEREZ MD [...] TO OTHER ANTIBIOTIC AGENT 03/05/2019 KWASI PEREZ MD, Ot Z88. 2 ALLERGY STATUS TO SULFONAMIDES [...] RENAL AND URETERAL C 03/06/2019 SHIRA GALVAN DIABETES CLINICAL MANAGER Ot N88.8 OTHER SPECIFIED NONINFLAMMATORY DISORDER 03/06/2019 SHIRA GALVAN DIABETES CLINICAL MANAGER Ot N95.0 POSTMENOPAUSAL BLEEDING 03/06/2019 SHIRA GALVAN DIABETES CLINICAL MANAGER Ot R59.0 LOCALIZED ENLARGED LYMPH NODES 03/06/2019 SHIRA GALVANP Ot Z01.4 11 ENCNTR FOR INDOOR LANDSCAPER/GARDENER EXAM (GENERAL) (ROUTINE) 03/07/2019 KWASI PEREZ MD Ot I10 ESSENTIAL (PRIMARY) HYPERTENSION 03/07/2019 KWASI PEREZ MD Ot I77. 9 DISORDER OF ARTERIES AND ARTERIOLES, UNS 03/07/2019 KAWSI PEREZ MD Ot N39. 0 URINARY TRACT INFECTION, SITE NOT SPECIF 03/07/2019 KWASI PEREZ MD Ot N95. 0 POSTMENOPAUSAL BLEEDING 03/07/2019 KWASI PEREZ MD Ot Z87.820 PERSONAL HISTORY OF TRAUMATIC BRAIN INJU 03/07/2019 KWASI PEREZ MD Ot Z88. 0 ALLERGY STATUS TO PENICILLIN 03/07/2019 KWASI PEREZ MD Ot Z88. 1 ALLERGY STATUS TO OTHER ANTIBIOTIC AGENT 03/07/2019 KWAIS PEREZ MD Ot Z88. 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 03/21/2019 SHIRA GALVAN DIABETES CLINICAL MANAGER Ot N13.2 HYDRONEPHROSIS WITH RENAL AND URETERAL C 03/21/2019 SHIRA GALVANP Ot N88.8 OTHER SPECIFIED NONINFLAMMATORY DISORDER 03/21/2019 SHIRA GALVAN DIABETES CLINICAL MANAGER Ot N95.0 POSTMENOPAUSAL BLEEDING 03/21/2019 SHIRA GALVANP Ot R59.0 LOCALIZED ENLARGED LYMPH NODES 03/21/2019 SHIRA GALVANP Ot Z01.4 11 ENCNTR FOR INDOOR LANDSCAPER/GARDENER EXAM (GENERAL) (ROUTINE) 03/29/2019 KWASI PEREZ MD [...] KWASI PEREZ MD Ot Z01.411 ENCNTR FOR INDOOR LANDSCAPER/GARDENER EXAM (GENERAL) (ROUTINE) 03/29/2019 KWASI PEREZ MD Ot Z87.820 PERSONAL HISTORY OF TRAUMATIC BRAIN INJU 03/29/2019 ANA MENDEZ, KWASI Michael Ot Z88. 0 ALLERGY STATUS TO PENICILLIN [...] 89 ACQUIRED ABSENCE OF OTHER ORGANS 05/18/2019 WIL OSORIOIA L DIABETES CLINICAL MANAGER Ot E11.69 TYPE 2 DIABETES MELLITUS WITH OTHER SPEC 05/18/2019 OSORIOLIYA FRIASRICIA L DIABETES CLINICAL MANAGER Ot E11.69 TYPE 2 DIABETES MELLITUS WITH OTHER SPEC 05/18/2019 OSORIOWIL FRIASIA L DIABETES CLINICAL MANAGER Ot D64.89 OTHER SPECIFIED ANEMIAS 05/18/2019 WIL OSORIOIA L DIABETES CLINICAL MANAGER Ot E11.69 TYPE 2 DIABETES MELLITUS WITH OTHER SPEC 05/18/2019 OSORIO, OBINNA L DIABETES CLINICAL MANAGER Ot E83.42 HYPOMAGNESEMIA 05/18/2019 WIL OSORIOIA L DIABETES CLINICAL MANAGER Ot E86.0 DEHYDRATION 05/18/2019 DEVON OBINNA L DIABETES CLINICAL MANAGER Ot R06.09 OTHER FORMS OF DYSPNEA 05/18/2019 LIYA OSORIORICIA L DIABETES CLINICAL MANAGER Ot E11.69 TYPE 2 DIABETES MELLITUS WITH OTHER SPEC 05/22/2019 SHIRA GALVAN DIABETES CLINICAL MANAGER Ot K57.3 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 05/22/2019 SHIRA GALVANP Ot N13.2 HYDRONEPHROSIS WITH RENAL AND URETERAL C 05/22/2019 SHIRA GALVANP Ot N88.8 OTHER SPECIFIED NONINFLAMMATORY DISORDER 05/22/2019 SHIRA GALVANP Ot N95.0 POSTMENOPAUSAL BLEEDING 05/22/2019 SHIRA GALVANP Ot R59.0 LOCALIZED ENLARGED LYMPH NODES 05/22/2019 SHIRA GALVANP Ot Z01.4 11 ENCNTR FOR INDOOR LANDSCAPER/GARDENER EXAM (GENERAL) (ROUTINE) 05/24/2019 OSORIO, OBINNA L DIABETES CLINICAL MANAGER Ot E83.42 HYPOMAGNESEMIA 05/24/2019 OSORIO, OBINNA L DIABETES CLINICAL MANAGER Ot E86.0 DEHYDRATION 05/24/2019 OSORIO, OBINNA L DIABETES CLINICAL MANAGER Ot Z88.0 ALLERGY STATUS TO PENICILLIN 05/24/2019 OSORIO, OBINNA L DIABETES CLINICAL MANAGER Ot Z88.2 ALLERGY STATUS TO SULFONAMIDES STATUS 05/26/2019 OSORIO, OBINNA L DIABETES CLINICAL MANAGER Ot E83.42 HYPOMAGNESEMIA 05/26/2019 OSORIO, OBINNA L DIABETES CLINICAL MANAGER Ot E86.0 DEHYDRATION 05/26/2019 OSORIO, OBINNA L DIABETES CLINICAL MANAGER Ot Z88.0 ALLERGY STATUS TO PENICILLIN 05/26/2019 OSORIO, OBINNA L DIABETES CLINICAL MANAGER Ot Z88.2 ALLERGY STATUS TO SULFONAMIDES STATUS 05/28/2019 OSORIO, OBINNA L DIABETES CLINICAL MANAGER Ot E83.42 HYPOMAGNESEMIA 05/28/2019 OSORIO, OBINNA L DIABETES CLINICAL MANAGER Ot E86.0 DEHYDRATION 05/28/2019 OSORIO, OBINNA L DIABETES CLINICAL MANAGER Ot Z88.0 ALLERGY STATUS TO PENICILLIN 05/28/2019 OSORIO, OBINNA L DIABETES CLINICAL MANAGER Ot Z88.2 ALLERGY STATUS TO SULFONAMIDES STATUS [...] HISTORY OF MALIGNANT NEOPLASM O 06/04/2019 ROVENSTINE DO BINDU L Ot Z87.820 PERSONAL HISTORY OF TRAUMATIC BRAIN INJU 06/04/2019 ROVENSTINE DO, BINDU Parr Ot Z88.0 ALLERGY STATUS TO PENICILLIN 06/04/2019 ROVENSTINE DO, BINDU Keshav Ot Z88.1 ALLERGY STATUS TO OTHER ANTIBIOTIC AGENT 06/04/2019 ROVENSTINE DO, BINDU Keshav Ot Z88.2 ALLERGY [...] TRAUMATIC BRAIN INJU 06/06/2019 ROVENSTINE DO, BINDU Parr Ot Z88.0 ALLERGY STATUS TO PENICILLIN 06/06/2019 [...] HISTORY OF ANTINEOPLASTIC CHEMO 06/11/2019 OBINNA OSORIO DIABETES CLINICAL MANAGER Ot E83.42 HYPOMAGNESEMIA 06/11/2019 OBINNA OSORIO DIABETES CLINICAL MANAGER Ot E86.0 DEHYDRATION 06/11/2019 OBINNA OSORIO DIABETES CLINICAL MANAGER Ot J70.1 CHRONIC AND OTHER PULMONARY MANIFESTATIO 06/11/2019 OBINNA OSORIO DIABETES CLINICAL MANAGER Ot J90 PLEURAL EFFUSION, NOT ELSEWHERE CLASSIFI 06/12/2019 OBINNA OSORIO DIABETES CLINICAL MANAGER Ot J70.1 CHRONIC AND OTHER PULMONARY MANIFESTATIO 06/12/2019 OBINNA OSORIO DIABETES CLINICAL MANAGER Ot J90 PLEURAL EFFUSION, NOT ELSEWHERE CLASSIFI 06/12/2019 OBINNA OSORIO DIABETES CLINICAL MANAGER Ot E83.42 HYPOMAGNESEMIA 06/12/2019 OBINNA OSORIO DIABETES CLINICAL MANAGER Ot E86.0 DEHYDRATION 06/15/2019 MENDEZ DO, ANGE [...] TO OTH DRUG/MEDS/BIOL SUB 06/17/2019 OBINNA OSORIO DIABETES CLINICAL MANAGER Ot E83.42 HYPOMAGNESEMIA 06/17/2019 OBINNA OSORIO DIABETES CLINICAL MANAGER Ot E86.0 DEHYDRATION 06/19/2019 MENDEZ DO, ANGE [...] OTH DRUG/MEDS/BIOL SUB 06/25/2019 WIL OSORIOIA L DIABETES CLINICAL MANAGER Ot E83.42 HYPOMAGNESEMIA 06/25/2019 LIYA OSORIORICIA L DIABETES CLINICAL MANAGER Ot E86.0 DEHYDRATION 06/25/2019 DEVON OBINNA L DIABETES CLINICAL MANAGER Ot E87.6 HYPOKALEMIA 06/25/2019 DEVON OBINNA L DIABETES CLINICAL MANAGER Ot K52.9 NONINFECTIVE GASTROENTERITIS AND COLITIS 06/25/2019 DEVON OBINNA L DIABETES CLINICAL MANAGER Ot N39.0 URINARY TRACT INFECTION, SITE NOT SPECIF 06/25/2019 LIYA OSORIORICIA L DIABETES CLINICAL MANAGER Ot R68.89 OTHER GENERAL SYMPTOMS AND SIGNS 06/25/2019 LIYA OSORIORICIA L DIABETES CLINICAL MANAGER Ot R68.89 OTHER GENERAL SYMPTOMS AND SIGNS 06/26/2019 ISHAAN MENDEZ, MARIANNE Cunningham Ot D68.9 COAGULATION DEFECT, UNSPECIFIED 06/26/2019 ISHAAN MENDEZ, MARIANNE Cunningham Ot I 96 GANGRENE, NOT ELSEWHERE CLASSIFIED 06/26/2019 ISHAAN MENDEZ, MARIANNE Cunningham Ot 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, STAGE 3 06/26/2019 ISHAAN MENDEZ, MARIANNE Cunningham Ot N39.0 URINARY TRACT INFECTION, SITE NOT SPECIF 06/26/2019 WIL OSORIOIA L DIABETES CLINICAL MANAGER Ot E83.42 HYPOMAGNESEMIA 06/26/2019 WIL OSORIOIA L DIABETES CLINICAL MANAGER Ot E86.0 DEHYDRATION 06/26/2019 LIYA OSORIORICIA L DIABETES CLINICAL MANAGER Ot E87.6 HYPOKALEMIA 06/26/2019 LIYA OSORIORICIA L DIABETES CLINICAL MANAGER Ot K52.9 NONINFECTIVE GASTROENTERITIS AND COLITIS 06/26/2019 LIYA OSORIORICIA L DIABETES CLINICAL MANAGER Ot N39.0 URINARY TRACT INFECTION, SITE NOT SPECIF 06/26/2019 LIYA OSORIORICIA L DIABETES CLINICAL MANAGER Ot R68.89 OTHER GENERAL SYMPTOMS AND SIGNS 06/28/2019 LIYA OSORIORICIA L DIABETES CLINICAL MANAGER Ot E83.42 HYPOMAGNESEMIA 06/28/2019 DEVON OBINNA L DIABETES CLINICAL MANAGER Ot E86.0 DEHYDRATION 06/28/2019 LIYA OSORIORICIA L DIABETES CLINICAL MANAGER Ot J70.1 CHRONIC AND OTHER PULMONARY MANIFESTATIO 06/28/2019 LIYA OSORIORICIA Keshav DIABETES CLINICAL MANAGER Ot J90 PLEURAL EFFUSION, NOT ELSEWHERE CLASSIFI 06/29/2019 DEVON OBINNA L DIABETES CLINICAL MANAGER Ot E83.42 HYPOMAGNESEMIA 06/29/2019 LIYA OSORIORICIA L DIABETES CLINICAL MANAGER Ot E86.0 DEHYDRATION 07/03/2019 LIYA OSORIORICIA L DIABETES CLINICAL MANAGER Ot E83.42 HYPOMAGNESEMIA 07/03/2019 DEVON OBINNA L DIABETES CLINICAL MANAGER Ot E86.0 DEHYDRATION 07/03/2019 CORALSARA KIM Lashell Ot 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, [facility] 07/12/2019 [facility] DO, ABEBA B Ot Z01.8 18 ENCOUNTER FOR OTHER PREPROCEDURAL EXAMIN 07/12/2019 [facility] DO, ABEBA B Ot Z01.8 18 ENCOUNTER FOR OTHER PREPROCEDURAL EXAMIN 07/12/2019 [facility] DO, ABEBA B Ot Z01.8 18 ENCOUNTER FOR OTHER PREPROCEDURAL EXAMIN 07/13/2019 [facility] TRAIN DO, ABEBA B Ot Z01.8 18 ENCOUNTER FOR OTHER PREPROCEDURAL EXAMIN 07/13/2019 LIYA OSORIORICIA L DIABETES CLINICAL MANAGER Ot E83.42 HYPOMAGNESEMIA 07/13/2019 LIYA OSORIORICIA L DIABETES CLINICAL MANAGER Ot E86.0 DEHYDRATION 07/16/2019 LIYA OSORIORICIA L DIABETES CLINICAL MANAGER Ot E83.42 HYPOMAGNESEMIA 07/16/2019 LIYA OSORIORICIA L DIABETES CLINICAL MANAGER Ot E86.0 DEHYDRATION 07/16/2019 DEVON OBINNA L DIABETES CLINICAL MANAGER Ot E83.42 HYPOMAGNESEMIA 07/16/2019 OSORIO, OBINNA L DIABETES CLINICAL MANAGER Ot E86.0 DEHYDRATION 07/16/2019 DEVON OBINNA L DIABETES CLINICAL MANAGER Ot E83.42 HYPOMAGNESEMIA 07/16/2019 OSORIO, OBINNA L DIABETES CLINICAL MANAGER Ot E86.0 DEHYDRATION 07/16/2019 OSORIO, OBINNA L DIABETES CLINICAL MANAGER Ot E83.42 HYPOMAGNESEMIA 07/16/2019 DEVON OBINNA L DIABETES CLINICAL MANAGER Ot E86.0 DEHYDRATION 07/20/2019 CATALINA CHEN DIABETES CLINICAL MANAGER Ot J 90 PLEURAL EFFUSION, NOT ELSEWHERE CLASSIFI 07/20/2019 RUSSELL OSORIO DO Ot R05 COUGH 07/24/2019 CATALINA CHEN S DIABETES CLINICAL MANAGER Ot 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 07/24/2019 CATALINA CHEN S DIABETES CLINICAL MANAGER Ot J 90 PLEURAL EFFUSION, NOT ELSEWHERE CLASSIFI 07/24/2019 CHENCATALINA Sofia S DIABETES CLINICAL MANAGER Ot K43.9 VENTRAL HERNIA WITHOUT OBSTRUCTION OR GA 07/24/2019 CATALINA CHEN S DIABETES CLINICAL MANAGER Ot K57.3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 07/24/2019 CATALINA CHEN S DIABETES CLINICAL MANAGER Ot N20.0 CALCULUS OF KIDNEY 07/24/2019 CATALINA CHEN S DIABETES CLINICAL MANAGER Ot R06.00 DYSPNEA, UNSPECIFIED 07/24/2019 CATALINA CHEN S DIABETES CLINICAL MANAGER Ot R59.0 LOCALIZED ENLARGED LYMPH NODES 07/25/2019 Ot 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 07/26/2019 APRIL CATALINA S DIABETES CLINICAL MANAGER Ot 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 07/26/2019 CATALINA CHEN S DIABETES CLINICAL MANAGER Ot J 90 PLEURAL EFFUSION, NOT ELSEWHERE CLASSIFI 07/26/2019 CATALINA CHEN S DIABETES CLINICAL MANAGER Ot K43.9 VENTRAL HERNIA WITHOUT OBSTRUCTION OR GA 07/26/2019 CATALINA CHEN S DIABETES CLINICAL MANAGER Ot K57.3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 07/26/2019 CATALINA CHEN S DIABETES CLINICAL MANAGER Ot N20.0 CALCULUS OF KIDNEY 07/26/2019 CHEN CATALINA S DIABETES CLINICAL MANAGER Ot R06.00 DYSPNEA, UNSPECIFIED 07/26/2019 CATALINA CHEN S DIABETES CLINICAL MANAGER Ot R59.0 LOCALIZED ENLARGED LYMPH NODES 07/27/2019 OBINNA OSORIO DIABETES CLINICAL MANAGER Ot E83.42 HYPOMAGNESEMIA 07/27/2019 OBINNA OSORIO DIABETES CLINICAL MANAGER Ot E86.0 DEHYDRATION 08/07/2019 RUSSELL OSORIO DO Ot R05 COUGH 08/07/2019 CHENCATALINA S DIABETES CLINICAL MANAGER Ot J 90 PLEURAL EFFUSION, NOT ELSEWHERE CLASSIFI 08/10/2019 MATHEW GILMORE APRN Ot M79.89 OTHER SPECIFIED SOFT TISSUE DISORDERS 08/14/2019 Ot 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 08/15/2019 CATALINA CHEN DIABETES CLINICAL MANAGER Ot 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 08/15/2019 CATALINA CHEN DIABETES CLINICAL MANAGER Ot J 90 PLEURAL EFFUSION, NOT ELSEWHERE CLASSIFI 08/15/2019 CHENCATALINA Sofia DIABETES CLINICAL MANAGER Ot K43.9 VENTRAL HERNIA WITHOUT OBSTRUCTION OR GA 08/15/2019 CATALINA CHEN DIABETES CLINICAL MANAGER Ot K57.3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 08/15/2019 CHENCATALINA Sofia S DIABETES CLINICAL MANAGER Ot N20.0 CALCULUS OF KIDNEY 08/15/2019 CATALINA CHEN DIABETES CLINICAL MANAGER Ot R06.00 DYSPNEA, UNSPECIFIED 08/15/2019 CATALINA CHEN S DIABETES CLINICAL MANAGER Ot R59.0 LOCALIZED ENLARGED LYMPH NODES 08/20/2019 SARA MONCADA Ot 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, [facility] 08/22/2019 SARA MONCADA Ot 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 9 MALIGNANT NEOPLASM OF CERVIX UTERI, [facility] 09/05/2019 DEE DEE LOWRY MD Ot [...] SITE NOT SPECIF 09/05/2019 DEE DEE LOWRY MD, Ot Z79. 4 HALFWAY (CURRENT) USE OF INSULIN 09/05/2019 DEE DEE LOWRY MD, Ot Z87.820 PERSONAL HISTORY OF TRAUMATIC BRAIN INJU 09/05/2019 DEE DEE LOWRY MD, Ot Z90. 49 ACQUIRED ABSENCE OF OTHER SPECIFIED PART 09/05/2019 DEE DEE LOWRY MD, Ot Z90. 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 09/23/2019 BONG MONROY [...] UNSPECIFIED 09/26/2019 BONG MONROY MD, Ot Z79.4 HALFWAY (CURRENT) USE OF INSULIN 09/26/2019 BONG MONROY MD Ot Z82.49 FAMILY HX OF ISCHEM HEART DIS AND OTH DI 09/26/2019 BONG MONROY MD Ot Z85.41 PERSONAL HISTORY OF MALIGNANT NEOPLASM O 09/26/2019 BONG MONROY MD, Ot Z87.820 PERSONAL HISTORY OF TRAUMATIC BRAIN INJU 09/26/2019 BONG MONROY MD Ot Z88.0 ALLERGY STATUS TO PENICILLIN 09/26/2019 BONG MONROY MD Ot Z88.1 ALLERGY STATUS TO OTHER ANTIBIOTIC AGENT 09/26/2019 BONG MONROY MD, Ot Z88.2 ALLERGY STATUS TO SULFONAMIDES STATUS 09/26/2019 BONG MONROY MD, Ot Z88.8 ALLERGY STATUS TO [facility] DRUG/MEDS[facility]9 TYPE 2 DIABETES MELLITUS WITHOUT COMPLIC 10/03/2019 [facility] Ot E83.42 HYPOMAGNESEMIA 10/03/2019 [facility] Ot E87.6 HYPOKALEMIA 10/03/2019 [facility] Ot K59.00 CONSTIPATION, UNSPECIFIED 10/03/2019 [facility] Ot N13.2 HYDRONEPHROSIS WITH RENAL AND URETERAL C 10/03/2019 [facility] Ot R10.11 RIGHT UPPER QUADRANT PAIN 10/03/2019 [facility] Ot 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 10/03/2019 [facility] Ot Z82.49 FAMILY HX OF ISCHEM HEART DIS AND OTH DI 10/03/2019 [facility] Ot Z85.41 PERSONAL HISTORY OF MALIGNANT NEOPLASM O 10/03/2019 [facility] Ot Z87.820 PERSONAL HISTORY OF TRAUMATIC BRAIN INJU 10/03/2019 [facility] Ot Z88.0 ALLERGY STATUS TO PENICILLIN 10/03/2019 [facility] Ot Z88.1 ALLERGY STATUS TO OTHER ANTIBIOTIC AGENT 10/03/[facility] Ot Z88.2 ALLERGY STATUS TO SULFONAMIDES STATUS 10/03/2019 [facility] DO Ot Z88.8 ALLERGY STATUS TO OTH DRUG/MEDS/BIOL SUB 10/05/2019 CHIN TUBBS APRN Ot E11 .9 TYPE 2 DIABETES MELLITUS WITHOUT COMPLIC 10/05/2019 CHIN TUBBS APRN Ot K43 .2 INCISIONAL HERNIA WITHOUT OBSTRUCTION OR 10/05/2019 CHIN TUBBS APRN Ot K59.00 CONSTIPATION, UNSPECIFIED 10/05/2019 CHIN TUBBS APRN Ot R10 .9 UNSPECIFIED ABDOMINAL PAIN 10/05/2019 CHIN TUBBS APRN Ot Z79 .4 MICROECONOMICS PROFESSOR (CURRENT) USE OF INSULIN 10/05/2019 CHIN TUBBS [...] ALLERGY STATUS TO OTH DRUG/MEDS/BIOL SUB 10/05/2019 WIL OSORIOIA L DIABETES CLINICAL MANAGER Ot E83.42 HYPOMAGNESEMIA 10/05/2019 OBINNA OSORIO DIABETES CLINICAL MANAGER Ot E86.0 DEHYDRATION 10/16/2019 WIL OSORIOIA L DIABETES CLINICAL MANAGER Ot E83.42 HYPOMAGNESEMIA 10/16/2019 WIL OSORIOIA L DIABETES CLINICAL MANAGER Ot E86.0 DEHYDRATION 11/01/2019 CATALINA CHEN DIABETES CLINICAL MANAGER Ot 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 11/01/2019 CATALINA CHEN DIABETES CLINICAL MANAGER Ot Z01.89 ENCOUNTER FOR OTHER SPECIFIED SPECIAL EX 11/11/2019 LUZ MARIA PINEDA MD, Ot E11.9 TYPE 2 DIABETES MELLITUS WITHOUT COMPLIC 11/11/2019 LUZ MARIA PINEDA MD, Ot I10 ESSENTIAL (PRIMARY) HYPERTENSION 11/11/2019 LUZ MARIA PINEDA MD, Ot R11.2 NAUSEA WITH VOMITING, UNSPECIFIED 11/11/2019 LUZ MARIA PINEDA MD Ot R19.7 DIARRHEA, UNSPECIFIED 11/11/2019 LUZ MARIA PINEDA MD Ot Z79.4 HALFWAY (CURRENT) USE OF INSULIN 11/11/2019 LUZ MARIA PINEDA MD Ot Z79.8 99 OTHER MICROECONOMICS PROFESSOR (CURRENT) DRUG THERAPY 11/11/2019 LUZ MARIA PINEDA MD Ot Z85.4 1 PERSONAL HISTORY OF MALIGNANT NEOPLASM O 11/11/2019 LUZ MARIA PINEDA MD Ot Z87.8 20 PERSONAL HISTORY OF TRAUMATIC BRAIN INJU 11/11/2019 LUZ MARIA PINEDA MD Ot Z88.0 ALLERGY STATUS TO PENICILLIN 11/11/2019 LUZ MARIA PINEDA MD Ot Z88.1 ALLERGY STATUS TO OTHER ANTIBIOTIC AGENT 11/11/2019 LUZ MARIA PINEDA MD Ot Z88.2 ALLERGY STATUS TO SULFONAMIDES STATUS 11/11/2019 LUZ MARIA PINEDA MD Ot Z88.8 ALLERGY STATUS TO OTH DRUG/MEDS/BIOL SUB 11/11/2019 LUZ MARIA PINEDA MD Ot Z92.3 PERSONAL HISTORY OF IRRADIATION 11/16/2019 LUZ MARIA PINEDA MD Ot E11.9 TYPE 2 DIABETES MELLITUS WITHOUT COMPLIC 11/16/2019 LUZ MARIA PINEDA MD Ot I10 ESSENTIAL (PRIMARY) HYPERTENSION 11/16/2019 LUZ MARIA PINEDA MD Ot R11.2 NAUSEA WITH VOMITING, UNSPECIFIED 11/16/2019 LUZ MARIA PINEDA MD Ot R19.7 DIARRHEA, UNSPECIFIED 11/16/2019 LUZ MARIA PINEDA MD Ot 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 11/16/2019 LUZ MARIA PINEDA MD Ot Z79.8 99 OTHER HALFWAY (CURRENT) DRUG THERAPY 11/16/2019 LUZ MARIA PINEDA MD Ot Z85.4 1 PERSONAL HISTORY OF MALIGNANT NEOPLASM O 11/16/2019 LUZ MARIA PINEDA MD Ot Z87.8 20 PERSONAL HISTORY OF TRAUMATIC BRAIN INJU 11/16/2019 LUZ MARIA PINEDA MD Ot Z88.0 ALLERGY STATUS TO PENICILLIN 11/16/2019 LUZ MARIA PINEDA MD Ot Z88.1 ALLERGY STATUS TO OTHER ANTIBIOTIC AGENT 11/16/2019 LUZ MARIA PINEDA MD Ot Z88.2 ALLERGY STATUS TO SULFONAMIDES STATUS 11/16/2019 LUZ MARIA PINEDA MD Ot Z88.8 ALLERGY STATUS TO OTH DRUG/MEDS/BIOL SUB 11/16/2019 LUZ MARIA PINEDA MD, Ot Z92.3 PERSONAL HISTORY OF IRRADIATION 11/21/2019 CATALINA CHEN Ot 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 11/21/2019 CATALINA CHEN Ot Z01.89 ENCOUNTER FOR OTHER SPECIFIED SPECIAL EX 11/22/2019 LUZ MARIA PINEDA MD, Ot E11.9 TYPE 2 DIABETES MELLITUS WITHOUT COMPLIC 11/22/2019 LUZ MARIA PINEDA MD, Ot I10 ESSENTIAL (PRIMARY) HYPERTENSION 11/22/2019 LUZ MARIA PINEDA MD, Ot R11.2 NAUSEA WITH VOMITING, UNSPECIFIED 11/22/2019 LUZ MARIA PINEDA MD, Ot R19.7 DIARRHEA, UNSPECIFIED 11/22/2019 LUZ MARIA PINEDA MD, Ot 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 11/22/2019 LUZ MARIA PINEDA MD, Ot Z79.8 99 OTHER HALFWAY (CURRENT) DRUG THERAPY 11/22/2019 LUZ MARIA PINEDA MD, Ot Z85.4 1 PERSONAL HISTORY OF MALIGNANT NEOPLASM O 11/22/2019 LUZ MARIA PINEDA MD, Ot Z87.8 20 PERSONAL HISTORY OF TRAUMATIC BRAIN INJU 11/22/2019 LUZ MARIA PINEDA MD, Ot Z88.0 ALLERGY STATUS TO PENICILLIN 11/22/2019 LUZ MARIA PINEDA MD, Ot Z88.1 ALLERGY STATUS TO OTHER ANTIBIOTIC AGENT 11/22/2019 LUZ MARIA PINEDA MD, Ot Z88.2 ALLERGY STATUS TO SULFONAMIDES STATUS 11/22/2019 LUZ MARIA PINEDA MD, Ot Z88.8 ALLERGY STATUS TO OTH DRUG/MEDS/BIOL SUB 11/22/2019 LUZ MARIA PINEDA MD, Ot Z92.3 PERSONAL HISTORY OF IRRADIATION 12/14/2019 Ot E83.42 HYP OMAGNESEMIA 12/14/2019 Ot E86.0 DEHY DRATION 12/17/2019 ABEBA SALAMANCA DO Ot Z01.8 18 ENCOUNTER FOR OTHER PREPROCEDURAL EXAMIN Procedures There is no data. Results Test [...] culture - 02/28/19 14:50 Bacterial urine culture [id number] NRG COLONY COUNT >100,000/ML NRG FTX;REPORTABLE SUSCEPTIBILITY [...] pa esteban - 03/01/19 08:32 WRISTBAND NUMBER [id number] NRG ABO+Rh group AP NRG Blood group [...] S LIGHT [facility] Comprehensive metabolic panel - 06/04/19 15:35 Serum [...] BY IA [facility] Automated blood complete blood count (he mogram) [...] BY IA [facility] Comprehensive metabolic panel - 06/15/19 12:00 Serum [...] culture - 09/04/19 14:40 Bacterial urine culture [id number] NRG COLONY COUNT 10,000 CFU/ML NRG SUSCEPTIBILITY SUSCEPTIBILITY REPORTED 09/08/19 10:0 5 NRG RAPID ID PRELIM RAPID ID BY [facility] [id number] NRG ID CONFIRMATION ID CONFIRMED [id number] NRG Dirithromycin susceptibility test by dis k [...] mg/dL 0.1-1.0 Serum or plasma alkaline phosphatase omra surement (enzymatic activity/volume) 73 U/L 40-136 Serum [...] - 10/02/19 18:48 Magnesium 1.5 mg/dL 1.6-2.4 Complete blood count (CBC) with automate d white blood cell (WBC) differential - 11/11/19 16:40 Blood leukocytes automated count (number/volume) 4.2 10*3/uL 4.3-11.0 Blood erythrocytes automated count (number/volume) 4.34 10*6/uL 4.35-5.85 Venous blood hemoglobin measurement (mass/volume) 13.4 g/dL 11.5-16.0 Blood hematocrit (volume fraction) 40 % 35-52 Automated erythrocyte mean corpuscular volume 92 [ foz_us] 80-99 Automated erythrocyte mean corpuscular h emoglobin (mass per erythrocyte) 31 pg 25-34 Automated erythrocyte mean corpuscular h emoglobin concentration measurement (mass/volume) 34 g/dL 32-36 Automated erythrocyte distribution width ratio 14. 1 % 10.0- 14.5 Automated blood platelet count (count/volume) 224 10*3/uL 130-400 Automated blood platelet mean volume measurement 8.7 [foz_us] 7.4-10.4 Automated blood neutrophils/100 leukocytes 87 % 42-75 Automated blood lymphocytes/100 leukocytes 9 % 12-44 Blood monocytes/100 leukocytes 3 % 0-12 Automated blood eosinophils/100 leukocytes 1 % 0-10 Automated blood basophils/100 leukocytes 0 % 0-10 Blood neutrophils automated count (number/volume) 3.7 10*3 1.8-7.8 Blood lymphocytes automated count (number/volume) 0.4 10*3 1.0-4.0 Blood monocytes automated count (number/volume) 0. 1 10*3 0.0-1.0 Automated eosinophil count 0.0 10*3/uL 0 .0-0.3 Automated blood basophil count (count/volume) 0.0 10*3/uL 0.0-0.1 Manual absolute plasma cell count - 09/25 16:40 Blood monocytes/100 leukocytes 5 % NRG Manual blood segmented neutrophils/100 leukocytes 61 % NRG Blood band neutrophils/100 leukocytes 24 % NRG Manual blood lymphocytes/100 leukocytes 9 % NRG Manual eosinophils/100 leukocytes in nose 0 % NRG Manual blood basophils/100 leukocytes 0 % NRG Blood erythrocyte morphology finding identification NORMAL NRG Manual blood metamyelocytes/100 leukocytes 1 % NRG Comprehensive metabolic panel - 11/11/19 16:40 Serum or plasma sodium measurement (moles/volume) 141 mmol/L 135-145 Serum or plasma potassium measurement (moles/volume) 3.5 mmol/L 3.6-5.0 Serum or plasma chloride measurement (moles/volume) 99 mmol/L 98-107 Carbon dioxide 25 mmol/L 21-32 Serum or plasma anion gap determination (moles/volume) 17 mmol/L 5-14 Serum or plasma urea nitrogen measurement (mass/volume ) 23 mg/dL 7-18 Serum or plasma creatinine measurement (mass/volume) 0.78 mg/dL 0.60-1.30 Serum or plasma urea nitrogen/creatinine mass ratio 29 NRG Serum or plasma creatinine measurement w ith calculation of estimated glomerular filtration rate > NRG Serum or plasma glucose measurement (mass/volume) 177 mg/dL 70-105 Serum or plasma calcium measurement (mass/volume) 10.3 mg/dL 8.5-10.1 Serum or plasma total bilirubin measurement (mass/volu me) 0.7 mg/dL 0.1-1.0 Serum or plasma alkaline phosphatase omar surement (enzymatic activity/volume) 66 U/L 40-136 Serum or plasma aspartate aminotransfera se measurement (enzymatic activity/volume) 19 U/L 5-34 Serum or plasma alanine aminotransferase measurement (enzymatic activity/volume) 6 U/L 0-55 Serum or plasma protein measurement (mass/volume) 8.1 g/dL 6.4-8.2 Serum or plasma albumin measurement (mass/volume) 4.1 g/dL 3.2-4.5 CALCIUM CORRECTED 10.2 mg/dL 8.5-10.1 TROPONIN I FS - 11/11/19 16:40 TROPONIN I FS < 0.30 <0.30 Serum or plasma amylase measurement (enz ymatic activity/volume) - 11/11/19 16:40 Serum or plasma amylase measurement (enzymatic activit y/volume) 55 U/L 25-125 Lipase - 11/11/19 16:40 Lipase 20 U/L 8-78 Blood lactic acid measurement (moles/vol ume) - 11/11/19 17:36 Blood lactic acid measurement (moles/volume) 1.62 mmol/L 0.50-2.00 Bacterial blood culture - 11/11/19 17:36 Bacterial blood culture NG NRG Bacterial blood culture - 11/11/19 17:45 Bacterial blood culture NG NRG Encounters ACCT No. Visit Date/Time Discharge Status Pt. Type Provider Facility Loc./Unit Complaint [id number] 12/14/2019 10:44:00 11:21:00 DIS Outpatient ABEBA SALAMANCA DO [facility] PREOP INCISIONAL HERNIA [id number] 12/11/2019 15:18:00 23:59:59 CLS Outpatient SARA MONCADA [facility] ONC [id number] 11/11/2019 16:25:00 20:05:00 DIS Emergency LUZ MARIA PINEDA MD [facility] ER FS VOMITING [id number] 10/30/2019 09:32:00 23:59:59 CLS Outpatient CATALINA CHEN [facility] RAD CERVICAL CARCIN MARGARET [id number] 07/27/2019 11:00:00 020 00:01:00 DIS Outpatient OBINNA OSORIO [facility] DEHYDRATION,CHR ONIC LOW MAG [id number] 10/02/2019 18:32:00 20:54:00 DIS Outpatient CHIN TUBBS APRN [facility] ER ABD PAIN, CONSTIPATION [id number] 09/29/2019 09:39:00 12:53:00 DIS Outpatient RYLAND CORRALES DO H [facility] ER FS ABD PROTRUSION [id number] 09/23/2019 11:31:00 13:20:00 DIS Emergency PORFIRIO MENDEZ, BONG Hawkins [facility] ER FS ABD PAIN [id number] 09/04/2019 16:40:00 14:45:00 DIS Outpatient ALEN MENDEZ, DEE DEE Dumont [facility] 4TH ORTHOSTATIC HYPOTENSION ,NEAR SYNCOPE,DECUBITUS ULC [id number] 08/20/2019 08:00:00 23:59:59 CLS Preadmit MATHEW GILMORE APRN [facility] RAD LEG SWELLING [id number] 07/17/2019 10:27:00 00:01:00 DIS Outpatient SARA MONCADA [facility] ONC [id number] 07/23/2019 13:45:00 23:59:59 CLS Outpatient CATALINA CHEN DIABETES CLINICAL MANAGER [facility] RAD DYSPNEA,CERVICA L CARCINOMA [id number] 07/18/2019 16:23:00 23:59:59 CLS Outpatient RUSSELL OSORIO DO [facility] LAB FS COUGH [id number] 07/18/2019 08:00:00 23:59:59 CLS Preadmit ABEBA SALAMANCA DO, V [facility] HISTORY OF CANCER [id number] 07/17/2019 12:32:00 23:59:59 CLS Outpatient CATALINA CHEN DIABETES CLINICAL MANAGER [facility] RAD [id number] 07/12/2019 11:30:00 23:59:59 CLS Outpatient ABEBA SALAMANCA DO [facility] PREOP HISTORY OF CANCER [id number] 06/28/2019 14:13:00 23:59:59 CLS Outpatient OBINNA OSORIO [facility] DEHYDRATION,CHR ONS LOW MG [id number] 06/25/2019 11:44:00 14:40:00 DIS Outpatient OBINNA OSORIO [facility] GASTROENTITIS,DEHYDRATION,UTI [id number] 06/15/2019 11:14:00 12:59:00 DIS Emergency MENDEZ ANGE JASON L [facility] ER FS VOMITING; DIARRHEA; HYPERGLYCEMIA; SOB [id number] 06/11/2019 14:25:00 23:59:59 CLS Outpatient OBINNA OSORIO [facility] RAD CHRONIC AND OTH ER PULMONARY MANIFESTATIONS DUE TO [id number] 06/11/2019 10:50:00 23:59:59 CLS Preadmit MARIANNE QUIROS MD [facility] WOUNDCARE [id number] 06/11/2019 12:10:00 14:55:00 DIS Outpatient OBINNA OSORIO [facility] LOW MG,DEHYDRAT ION [id number] 06/04/2019 15:20:00 18:44:00 DIS Emergency ROVENSTINE DOBINDU L [facility] ER FS SOA [id number] 05/28/2019 14:01:00 23:59:59 CLS Outpatient MARIANNE QUIROS MD [facility] WOUNDCARE [id number] 05/24/2019 12:56:00 16:10:00 DIS Outpatient OBINNA OSORIO DIABETES CLINICAL MANAGER [facility] DEHYDRATION,LOW MAGNESIUM [id number] 05/18/2019 11:32:00 15:50:00 DIS Outpatient OBINNA OSORIOP [facility] TYPE 2 DIABETES,DEHYDRATION,LOW MAGNESIUM [id number] 03/01/2019 08:10:00 11:36:00 DIS Emergency KWASI PEREZ MD [facility] ER VAGINAL BLEEDING [id number] 02/28/2019 11:58:00 23:59:59 CLS Outpatient SHIRA GALVAN [facility] RAD POSTMENOPAUSAL BLEEDING [id number] 02/28/2019 13:56:00 17:27:00 DIS Emergency KWASI PEREZ MD [facility] ER ABNORMAL US [id number] 12/19/2019 09:00:00 P EN Preadmit ABEBA SALAMANCA DO [facility] INCISIONAL HERNIA [id number] 10/05/2019 00:00:00 Document Registration [id number] 07/21/2019 18:10:00 Document Registration
[2019-12-19] MEDS ORDERED: BUP/EPI 0.5% 1:200,000 (MARCAINE) 10ML VIAL IJ ONE (07:54)
[2019-12-19] MEDS ORDERED: CLINDAMYCIN 600 MG/50 ML IVPB 50 ML IV ONE (08:00)
--- NOTE | 2019-12-19 08:03 | Progress Note-Pre Operative ---
Pre-Operative Progress Note H&P Reviewed The H&P was reviewed, patient examined and no changes noted. Time Seen by Provider: 07:58 Date H&P Reviewed: Dec 19, 2019 Time H&P Reviewed: 07:57 Pre-Operative Diagnosis: Incarcerated Incisional hernia ABEBA SALAMANCA DO Dec 19, 2019 08:03
[2019-12-19] MEDS: LACTATED RINGERS 1,000 ML IV PRN ×2 (08:12→10:27)
[2019-12-19] MEDS ORDERED: fentaNYL INJECTION 100 MCG/2 ML AMP ONE (08:15)
[2019-12-19] MEDS ORDERED: NEOSTIGMINE 3 MG/3 ML VIAL ONE (08:15)
[2019-12-19] MEDS ORDERED: ONDANSETRON 4 MG/2 ML (SDV) Z0FRAN ONE (08:15)
[2019-12-19] MEDS ORDERED: LIDOCAINE PF 2% 5 ML (XYLOCAINE) VIAL ONE (08:15)
[2019-12-19] MEDS ORDERED: ROCURONIUM 10 MG/ML 5 ML SYRINGE IV ONE (08:15)
[2019-12-19] MEDS ORDERED: MIDAZOLAM 2 MG/2 ML (VERSED) VIAL ONE (08:15)
[2019-12-19] MEDS ORDERED: proPOfol 200 MG/20 ML (DIPRIVAN) VIAL IV ONE (08:15)
[2019-12-19] MEDS ORDERED: GLYCOPYRROLATE 0.2 MG/ML (ROBINUL) 2 ML VIAL ONE (08:15)
[2019-12-19] MEDS ORDERED: SEVOFLURANE (ULTANE) 15 ML INHAL SOLN ONE (09:51)
[2019-12-19] MEDS ORDERED: PHENYLEPHRINE INJ 10 MG/ML (FOR DRIP KITS ONLY) ONE (09:52)
[2019-12-19] MEDS ORDERED: PHENYLEPHRINE 100 MCG/ML 10 ML (ANESTHESIA) SYR ONE (09:53)
--- NOTE | 2019-12-19 10:03 | Progress Note-Post Operative ---
Post-Operative Progess Note Surgeon (s)/Tractor Driver Teamster (s) Surgeon ABEBA SALAMANCA DO Tractor Driver Teamster: Kayleigh Pre-Operative Diagnosis Incarcerated Incisional hernia Post-Operative Diagnosis same Procedure & Operative Findings Date of Procedure 12/19/19 Procedure Performed/Findings PROCEDURE: Laparoscopic [Incisional/Ventral] hernia repair with mesh. COMPLICATIONS: None. INDICATIONS: The patient is a 69, female with an [incarcerated incisional/ ventral] hernia, which has continued to increase in size and cause discomfort. The patient was explained the risk and benefits of the procedure and wished to proceed with the procedure. Consent was signed on the chart. DESCRIPTION OF PROCEDURE: The patient was taken into the operating suite, prepped and draped in sterile fashion. Surgical pause was performed. Local anesthetic was infiltrated in left upper quadrant. A #11 blade scalpel was used to make a small skin incision. Cautery was used to dissect down to the fascia, which was then scored and divided the muscle, went through the posterior sheath and a balloon trocar was inserted into the abdomen. The abdomen was then insufflated. The Transverse colon and Omentum was stuck up in the right upper quadrant incision. Also found steel suture that we had to remove in this old incision. A 5 mm trocar was placed in the midline and a 5 mm trocar was placed in left lower quadrant. [The defect was then closed using 0 Vicryl with a Stas-Juan single figure of eight closed the defect nicely]. Echo Ventralight mesh was then inserted in the abdomen grabbed through the stab incision (used a 4 x 6 inch oval). The balloon was inflated on the mesh. Circumferential tacks were placed with a SecureStrap Tacker. The balloon was then removed and inner crown was created as well. The mesh was tacked with pressure being decreased to about 10mm Hb. The 12 mm fascial defect was then closed using 0 Vicryl figure of eight suture. The abdomen was then desufflated,the trocars were removed. The skin was then closed using 4-0 Monocryl simple sub-cuticular stitches for the 5mm incisions and 3 simple subcuticular stitches for the LUQ incision. The abdomen was washed and dried and Skin Affix was placed over the incisions. The patient tolerated procedure well without any complications. She was taken to recovery room in stable condition. Dr. Victor assisted on this case helping to make incisions, close incisions, identify anatomy and hold anatomy out of the way. Anesthesia Type GET Estimated Blood Loss Estimated blood loss (mL): scant Specimens/Packing Specimens Removed none ABEBA SALAMANCA DO Dec 19, 2019 10:03
[2019-12-19] MEDS ORDERED: HYDR-4226 PO (10:04)
--- NOTE | 2019-12-19 10:05 | Discharge Inst-Surgical ---
Discharge Inst-Surgical Depart Medication/Instructions New, Converted or Re-Newed RX: RX Given to Pt/Family Patient Instructions Follow up Appt: Make appointment for 1 week. [phone] Instructions: No lifting greater than 20 pounds. No strenuous activity. May shower in 24 hours, no tub bath or soaking. Use incentive spirometer at home as directed. No Smoking Skin/Wound Care: May remove bandages in am. You need to leave the Dermabond on incision it will fall off on it's own. Symptoms to Report: Appetite Changes, Extremity Discoloration, Numbness/Tingling, Swelling Increased, Bleeding Excessive, Eyesight Changes, Pain Increased, Urine Color Change, Constipation(Persistent), Fever over 101 degree F, Pain/Pressure in chest, Urinating Difficulty, Cough Up/Vomit Blood, Heart Beat Irreg/Pounding, Pain/Pressure in jaw, Cramps in feet or legs, Lightheadedness, Pain/Pressure in shoulder, Diarrhea(Persistent), Memory Changes Suddenly, Questions/Concerns, Weight gain consecutive days, Dizziness/Fainting, Nausea/Vomiting, Shortness of Breath, Weight gain over 2 pounds If questions or concerns contact your physician Or seek help at emergency department. Activity Activity as Tolerated: Yes Activity Instructions: Avoid Stress to Incision Driving Instructions: No Driving/Refer to Diet Discharge Diet: No Restrictions (increase protein) Diet After 24 Hours: Clear Liquid if Nauseous If Any Problems/Questions/Issu: Contact Your Physician, Go to Emergency Room Skin/Wound Care Infection Signs and Symptoms: Increased Redness, Foul Odor of Wound, Increased Drainage, Skin Itchy or Has a Rash, Increased Swelling, Temperature Above 101 F Wound Care Comment: heating pad to shoulder or neck tonight for pain Bathing Instructions: Shower Stitches/Mckinnon/Dermabond Dis: Dermabond Ice Pack: Ice On and Off Site ABEBA SALAMANCA DO Dec 19, 2019 10:05
[2019-12-19] MEDS ORDERED: ONDANSETRON 4 MG/2 ML (SDV) Z0FRAN IVP PRN (10:15)
[2019-12-19] MEDS ORDERED: HYDROmorphone 2 MG/ML VIAL (DILAUDID) IV ONE (10:15)
[2019-12-19] MEDS ORDERED: HYDROcodone/APAP 5 MG/325 MG (LORTAB) TAB ONE (11:32)
[2019-12-19] MEDS ORDERED: HYDROcodone/APAP 5 MG/325 MG (LORTAB) TAB PO ONE (11:45)
--- NOTE | 2019-12-19 15:06 | Anesthesia-General Post-Op ---
General Patient Condition Mental Status/LOC: Same as Preop Cardiovascular: Satisfactory Nausea/Vomiting: Absent Respiratory: Satisfactory Pain: Controlled Complications: Absent Post Op Complications Complications None Follow Up Care/Instructions Patient Instructions None needed. Anesthesia/Patient Condition Patient Condition Patient is doing well, no complaints, stable vital signs, no apparent adverse anesthesia problems. No complications reported per nursing. D/C home per [facility] Criteria: Yes JHONY ROSE CRNA Dec 19, 2019 15:06
== END 2019-12-19 12:30 | disposition home or self-care (01) ==
LOC: SDC 07:42
PROVIDERS: ATTEND Surgery
DX: K43.0 Incisional hernia with obstruction, without gangrene (principal); E11.40 Type 2 diabetes mellitus with diabetic neuropathy, unspecified; I10 Essential (primary) hypertension; E66.9 Obesity, unspecified; Z68.23 Body mass index [BMI] 23.0-23.9, adult; Z79.899 Other long term (current) drug therapy; Z88.0 Allergy status to penicillin; Z88.2 Allergy status to sulfonamides; Z88.1 Allergy status to other antibiotic agents; Z91.010 Allergy to peanuts; Z88.8 Allergy status to other drugs, medicaments and biological substances; Z85.41 Personal history of malignant neoplasm of cervix uteri
CPT/HCPCS: 49655; 82962; 87081; 94664; C1781

== ENCOUNTER 2020-01-16 22:10 | Emergency (ER) | payer MEDICARE, OTHER ==
[~2020-01-16] VITALS: Ht 165.1 cm; Wt 56.3 kg
[~2020-01-16 22:10] MED LIST changes: +HYDR-4226 PO
[2020-01-16] MEDS ORDERED: NS IV 1000 ML 1,000 ML IV STA (22:18)
--- NOTE | 2020-01-16 22:23 | ED General ---
General Chief Complaint: General Problems/Pain Stated Complaint: WEAKNESS Source of Information: Patient Exam Limitations: No Limitations History of Present Illness Date Seen by Provider: Jan 16, 2020 Time Seen by Provider: 22:10 Initial Comments This patient is a 69-year-old female presents to the emergency department complaining of weakness and fatigue. Patient has a long history of the same. Patient states she is felt like this for over a year since being diagnosed with cervical cancer. Patient underwent several rounds of chemotherapy and radiation. Patient did not have any type of surgeries. However the patient did have a hernia repair from an excisional hernia the right lower abdomen approximately one month ago. Patient states she been doing well but just feels extremely weakness and fatigue. Patient is concerned her electrolytes are low. Patient states that she has a chronic decubitus stage 3 ulcer to her buttocks area that is followed regularly by her PCP. Patient also states that she has chronic External hemorrhoids. We'll do medical evaluation treatment is needed Timing/Duration: 2-3 Days Severity: Moderate Associated Systoms: Malaise Allergies and Home Medications Allergies Coded Allergies: Penicillins (Verified Allergy, Severe, SOA, pt has received Ceftriaxone w/o issue, 09/05/19) ciprofloxacin (Verified Allergy, Severe, BURNING SENSATION, 09/04/19) Sulfa (Sulfonamide Antibiotics) (Verified Allergy, Unknown, 09/04/19) bacitracin (Verified Allergy, Unknown, 09/04/19) benazepril (Verified Allergy, Unknown, 09/04/19) nut - unspecified (Verified Allergy, Unknown, 12/14/19) Home Medications Ascorbic Acid 500 Mg Tablet, 500 MG PO DAILY, (Reported) Calcium Carbonate/Vitamin D3 1 Each Tablet, 1 EACH PO DAILY, (Reported) Carboxymethylcellulose Sodium 1 Each Droperette, 1-2 DROPS OU PRN PRN for DRY EYES, (Reported) Cephalexin 250 Mg Capsule, 250 MG PO Q6H Prescribed by: RYLAND CORRALES on 09/29/19 1248 Cyanocobalamin (Vitamin B-12) 1,000 Mcg Tablet, 1,000 MCG PO DAILY, (Reported) Hydrocodone/Acetaminophen 1 Each Tablet, 1 TAB PO Q6H Prescribed by: ABEBA SALAMANCA on 12/19/19 1004 Insulin Glargine,Hum.rec.anlog 100 Unit/1 Ml Insuln.pen, 10 UNIT SQ HS, (Reported) Loratadine 10 Mg Capsule, 10 MG PO DAILY, (Reported) Magnesium Oxide 250 Mg Tablet, 250 MG PO DAILY, (Reported) Mv-Mn/Folic Acid/Calcium/Vit K 1 Each Tablet, 1 EACH PO DAILY, (Reported) Patient Home Medication List Home Medication List Reviewed: Yes Review of Systems Review of Systems Constitutional: see HPI, malaise, weakness EENTM: No see HPI, No no symptoms reported, No ear discharge, No hearing loss, No ear pain, No blurred vision, No double vision, No eye pain, No tearing, No vision loss, No dental problems, No hoarseness, No mouth pain, No mouth swelling, No epistaxis, No nose congestion, No nose pain, No throat pain, No throat swelling, No other Respiratory: No no symptoms reported, No see HPI, No cough, No dyspnea on exertion, No hemoptysis, No orthopnea, No phlegm, No short of breath, No stridor, No wheezing, No other Cardiovascular: No no symptoms reported, No see HPI, No chest pain, No edema, No Hx of Intervention, No palpitations, No syncope, No vascular heart diseas, No other Gastrointestinal: No RUQ, No LUQ, No RLQ, No LLQ, No no symptoms reported, No see HPI, No abdominal pain, No constipation, No diarrhea, No dysphagia, No hematemesis, No heartburn, No jaundice, No loss of appetite, No melena, No nausea, No vomiting, No other Genitourinary: No no symptoms reported, No see HPI, No decreased output, No discharge, No dysuria, No frequency, No hematuria, No hesitancy, No incontinence, No nocturia, No pain, No other Skin: other (lesion on buttocks decubitus changes stage 3 ulcer) All Other Systems Reviewed Negative Unless Noted: Yes Past Olymuqe-Elpamp-Wbncge Hx Patient Social History 2nd Hand Smoke Exposure: No Recent Foreign Travel: No Contact w/Someone Who Travel: No Recent Hopitalizations: No Seasonal Allergies Seasonal Allergies: Yes Past Medical History Surgeries: Yes (BRACHYTHERAPY-CERVIX, eyelid lifted) Appendectomy, Gallbladder, Tonsillectomy Respiratory: Yes (gets SOB with exercise) Cardiac: No Hypertension Neurological: Yes (seizures 40+ years ago) Neuropathy, Traumatic Brain Injury Sexually Transmitted Disease: No HIV/AIDS: No Genitourinary: No Gastrointestinal: Yes Abdominal Hernia Musculoskeletal: Yes (generalized weakness) Endocrine: Yes Diabetes, Insulin dep HEENT: No Cancer: Yes Cervical Did You Recieve Any Treatments: Yes What Type of Treatment Did You: Chemotherapy, Radiation Psychosocial: No Integumentary: No Blood Disorders: No Family Medical History Cardiovascular disease 19 FATHER Diabetes mellitus 19 FATHER G8 BROTHER Respiratory disorder 19 MOTHER Physical Exam Vital Signs Vital Signs - First Documented 01/16/20 22:18 Temp 36.4 Pulse 103 Resp 16 B/P (MAP) 140/73 (95) Pulse Ox 99 O2 Delivery Room Air Capillary Refill : Height, Weight, BMI Height: '" Weight: lbs. oz. kg; 22.00 BMI Method: General Appearance: No Apparent Distress, WD/WN Neck: Full Range of Motion, Normal Inspection, Non Tender, Supple Respiratory: Chest Non Tender, Lungs Clear, Normal Breath Sounds, No Accessory Muscle Use, No Respiratory Distress Cardiovascular: Regular Rate, Rhythm, No Edema, No Gallop, No JVD, No Murmur, Normal Peripheral Pulses Gastrointestinal: Normal Bowel Sounds, No Organomegaly, No Pulsatile Mass, Non Tender, Soft Rectal: Hemorrhoids (chronic external hemorrhoids), Other (stage 3 decubitus ulcer and change from previous) Extremity: Normal Capillary Refill, Normal Inspection, Normal Range of Motion, Non Tender, No Calf Tenderness, No Pedal Edema Neurologic/Psychiatric: Alert, Oriented x3, No Motor/Sensory Deficits, Normal Mood/Affect Progress/Results/Core Measures Suspected Sepsis SIRS Temperature: Pulse: Respiratory Rate: Laboratory Tests 01/16/20 22:20: White Blood Count 3.3L Blood Pressure / Mean: Laboratory Tests 01/16/20 22:20: Creatinine 0.65, Platelet Count 195, Total Bilirubin 0.5 Results/Orders Lab Results Laboratory Tests Test 01/16/20 22:20 01/16/20 22:35 Range/Units White Blood Count 3.3 L 4.3-11.0 10^3/uL Red Blood Count 3.76 L 4.35-5.85 10^6/uL Hemoglobin 11.6 11.5-16.0 G/DL Hematocrit 34 L 35-52 % Mean Corpuscular Volume 90 80-99 FL Mean Corpuscular Hemoglobin 31 25-34 PG Mean Corpuscular Hemoglobin Concent 34 32-36 G/DL Red Cell Distribution Width 13.6 10.0-14.5 % Platelet Count 195 130-400 10^3/uL Mean Platelet Volume 8.5 7.4-10.4 FL Neutrophils (%) (Auto) 70 42-75 % Lymphocytes (%) (Auto) 20 12-44 % Monocytes (%) (Auto) 7 0-12 % Eosinophils (%) (Auto) 3 0-10 % Basophils (%) (Auto) 0 0-10 % Neutrophils # (Auto) 2.3 1.8-7.8 X 10^3 Lymphocytes # (Auto) 0.7 L 1.0-4.0 X 10^3 Monocytes # (Auto) 0.2 0.0-1.0 X 10^3 Eosinophils # (Auto) 0.1 0.0-0.3 10^3/uL Basophils # (Auto) 0.0 0.0-0.1 10^3/uL Sodium Level 139 135-145 MMOL/L Potassium Level 3.8 3.6-5.0 MMOL/L Chloride Level 98 98-107 MMOL/L Carbon Dioxide Level 27 21-32 MMOL/L Anion Gap 14 5-14 MMOL/L Blood Urea Nitrogen 25 H 7-18 MG/DL Creatinine 0.65 0.60-1.30 MG/DL Estimat Glomerular Filtration Rate > 60 BUN/Creatinine Ratio 38 Glucose Level 184 H 70-105 MG/DL Calcium Level 9.7 8.5-10.1 MG/DL Corrected Calcium 10.0 8.5-10.1 MG/DL Magnesium Level 1.5 L 1.6-2.4 MG/DL Total Bilirubin 0.5 0.1-1.0 MG/DL Aspartate Amino Transf (AST/SGOT) 17 5-34 U/L Alanine Aminotransferase (ALT/SGPT) 8 0-55 U/L Alkaline Phosphatase 78 40-136 U/L Total Protein 7.1 6.4-8.2 GM/DL Albumin 3.6 3.2-4.5 GM/DL Urine Color YELLOW Urine Clarity SLT CLOUDY Urine pH 6.0 5-9 Urine Specific [place] 1.020 1.016-1.022 Urine Protein TRACE H NEGATIVE Urine Glucose (UA) NEGATIVE NEGATIVE Urine Ketones NEGATIVE NEGATIVE Urine Nitrite NEGATIVE NEGATIVE Urine Bilirubin NEGATIVE NEGATIVE Urine Urobilinogen 0.2 < = 1.0 MG/DL Urine Leukocyte Esterase 2+ H NEGATIVE Urine RBC (Auto) 2+ H NEGATIVE Urine RBC 5-10 H /HPF Urine WBC 25-50 H /HPF Urine Squamous Epithelial Cells 0-2 /HPF Urine Crystals PRESENT H /LPF Urine Amorphous Sediment FEW HERMINIO URATES H /LPF Urine Bacteria TRACE /HPF Urine Casts NONE /LPF Urine Mucus NEGATIVE /LPF Urine Culture Indicated YES My Orders Orders - BONG MONROY MD Ed Iv/Invasive Line Start (01/16/20 22:18) Cbc With Automated Diff (01/16/20 22:18) Comprehensive Metabolic Panel (01/16/20 22:18) Urinalysis (01/16/20 22:18) Magnesium (01/16/20 22:18) Ns Iv 1000 Ml (Sodium Chloride 0.9%) (01/16/20 22:18) Urine Culture (01/16/20 22:35) Ceftriaxone For Iv Use (Rocephin For I (01/16/20 23:00) Magnesium Oxide Tablet (Mag Ox Tablet) (01/16/20 23:00) Vital Signs/I&O 01/16/20 22:18 Temp 36.4 Pulse 103 Resp 16 B/P (MAP) 140/73 (95) Pulse Ox 99 O2 Delivery Room Air Capillary Refill : Progress Note : Time: 23:04 Progress Note UTI with leukocyte esterase positive but negative nitrates urine be sent for culture. Patient will get 1 g Rocephin at discharge. This is consistent with patient's history. 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 Patient is very nonspecific complaints. Appears patient has some underlying depression. Patient is to follow-up with her primary care physician tomorrow or the next day and she is agreeable to this. Patient is a discuss at length with her PCP about concerns of possible depression given her recent history. Patient be discharged home after antibiotics. Encourage by mouth fluids. Continue all home medications including potassium and magnesium supplementation per PCP. Discussed with PCP for possible underlying depression issues related to your recent significant medical history. Follow-up in 1-2 days as discussed. Departure Impression Primary Impression: Fatigue Additional Impressions: Urinary tract infection Magnesium deficiency HX CANCER External hemorrhoid Sacral decubitus ulcer, stage III Depression Disposition: 01 HOME, SELF-CARE Condition: Stable Departure-Patient Inst. Decision time for Depature: 23:07 Referrals: RUSSELL OSORIO DO (PCP) Primary Care Physician OBINNA OSORIO DNP (Family) Primary Care Physician Patient Instructions: Depression, Adult (DC), Hemorrhoids (DC), Pressure Sores (DC) Add. Discharge Instructions: Encourage by mouth fluids. Continue all home medications including potassium and magnesium supplementation per PCP. Discussed with PCP for possible underlying depression issues related to your recent significant medical history. Follow-up in 1-2 days as discussed. All discharge instructions reviewed with patient and/or family. Voiced understanding. BONG MONROY MD Jan 16, 2020 22:23
[2020-01-16 22:28] LABS: HEMATOCRIT 34 % (35-52); HEMOGLOBIN 11.6 G/DL (11.5-16.0); LYMPHOCYTES % (AUTO) 20 % (12-44); MEAN CORPUSCULAR HEMOGLOBIN 31 PG (25-34); MEAN CORPUSCULAR HGB CONC 34 G/DL (32-36); MEAN CORPUSCULAR VOLUME 90 FL (80-99); MEAN PLATELET VOLUME 8.5 FL (7.4-10.4); MONOCYTES % (AUTO) 7 % (0-12); NEUTROPHILS % (AUTO) 70 % (42-75); PLATELET COUNT 195 10^3/uL (130-400); WHITE BLOOD COUNT 3.3 10^3/uL (4.3-11.0)
[2020-01-16 22:29] LABS: BASOPHILS % (AUTO) 0 % (0-10); EOSINOPHILS # (AUTO) 0.1 10^3/uL (0.0-0.3); EOSINOPHILS % (AUTO) 3 % (0-10); LYMPHOCYTES # (AUTO) 0.7 X 10^3 (1.0-4.0); MONOCYTES # (AUTO) 0.2 X 10^3 (0.0-1.0); NEUTROPHILS # (AUTO) 2.3 X 10^3 (1.8-7.8)
[2020-01-16 22:44] LABS: BILIRUBIN,URINE NEGATIVE (NEGATIVE); CLARITY,URINE SLT CLOUDY; COLOR,URINE YELLOW; GLUCOSE, URINE (UA) NEGATIVE (NEGATIVE); KETONES,URINE NEGATIVE (NEGATIVE); LEUKOCYTE ESTERASE ,URINE 2+ (NEGATIVE); NITRITE,URINE NEGATIVE (NEGATIVE); PROTEIN,URINE TRACE (NEGATIVE)
[2020-01-16 22:45] LABS: AMORPHOUS SEDIMENT,UR FEW AMOR URATES /LPF; BACTERIA,URINE TRACE /HPF; SQUAMOUS EPITHELIAL CELL,UR 0-2 /HPF; WBC,URINE 25-50 /HPF
[2020-01-16 22:50] LABS: CARBON DIOXIDE 27 MMOL/L (21-32); CHLORIDE 98 MMOL/L (98-107); POTASSIUM 3.8 MMOL/L (3.6-5.0); SODIUM 139 MMOL/L (135-145)
[2020-01-16 22:51] LABS: ALANINE AMINOTRANSFERASE 8 U/L (0-55); ALBUMIN 3.6 GM/DL (3.2-4.5); ALKALINE PHOSPHATASE 78 U/L (40-136); BILIRUBIN,TOTAL 0.5 MG/DL (0.1-1.0); BUN/CREATININE RATIO 38; CALCIUM 9.7 MG/DL (8.5-10.1); CREATININE SERUM 0.65 MG/DL (0.60-1.30); GFR ESTIMATED > 60; GLUCOSE 184 MG/DL (70-105); MAGNESIUM 1.5 MG/DL (1.6-2.4); TOTAL PROTEIN 7.1 GM/DL (6.4-8.2)
[2020-01-16] MEDS ORDERED: cefTRIAXone FOR IV USE 1,000 MG in WATER (STERILE) FOR INJECTION 10 ML IV ONE (23:00)
[2020-01-16] MEDS ORDERED: MAGNESIUM OXIDE (MAG-OX)400 MG TAB PO ONE (23:00)
[2020-01-16 23:15] VITALS: BP 132/54
== END 2020-01-16 23:15 | disposition home or self-care (01) ==
LOC: ER FS 22:10 → EDUNIT# 22:10 → ER FS 23:15
DX: N39.0 Urinary tract infection, site not specified (principal); K64.4 Residual hemorrhoidal skin tags; L89.153 Pressure ulcer of sacral region, stage 3; F32.9 Major depressive disorder, single episode, unspecified; E61.2 Magnesium deficiency; E11.40 Type 2 diabetes mellitus with diabetic neuropathy, unspecified; Z87.820 Personal history of traumatic brain injury; Z85.41 Personal history of malignant neoplasm of cervix uteri; Z88.0 Allergy status to penicillin; Z88.1 Allergy status to other antibiotic agents; Z88.2 Allergy status to sulfonamides; Z88.8 Allergy status to other drugs, medicaments and biological substances; Z79.4 Long term (current) use of insulin
CPT/HCPCS: 36415; 80053; 81000; 83735; 85025; 87088

== ENCOUNTER 2020-01-19 12:51 | Emergency (ER) | payer MEDICARE, OTHER ==
[~2020-01-19] VITALS: Ht 170 cm; Wt 70.0 kg
--- NOTE | 2020-01-19 13:05 | ED General ---
General Chief Complaint: General Problems/Pain Stated Complaint: HIGH BP Source of Information: Patient History of Present Illness Date Seen by Provider: Jan 19, 2020 Time Seen by Provider: 13:01 Initial Comments 69-year-old female presents few EMS with complaint of extreme weakness and physical decline over the past 9 months. Today her home health nurses told her that she needed to have a higher level of care than they could provide as she could no longer stand herself, get herself to the toilet or do basic hygiene herself. She lives at home with her , who is no longer to help her crowing physical needs. 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 States that she's had multiple falls due to her progressing weakness. She is not opposed to assisted care. Allergies and Home Medications Allergies Coded Allergies: Penicillins (Verified Allergy, Severe, SOA, pt has received Ceftriaxone w/o issue, 09/05/19) ciprofloxacin (Verified Allergy, Severe, BURNING SENSATION, 09/04/19) Sulfa (Sulfonamide Antibiotics) (Verified Allergy, Unknown, 09/04/19) bacitracin (Verified Allergy, Unknown, 09/04/19) benazepril (Verified Allergy, Unknown, 09/04/19) nut - unspecified (Verified Allergy, Unknown, 12/14/19) Home Medications Ascorbic Acid 500 Mg Tablet, 500 MG PO DAILY, (Reported) Calcium Carbonate/Vitamin D3 1 Each Tablet, 1 EACH PO DAILY, (Reported) Carboxymethylcellulose Sodium 1 Each Droperette, 1-2 DROPS OU PRN PRN for DRY EYES, (Reported) Cephalexin 250 Mg Capsule, 250 MG PO Q6H Prescribed by: RYLAND CORRALES on 09/29/19 1248 Cyanocobalamin (Vitamin B-12) 1,000 Mcg Tablet, 1,000 MCG PO DAILY, (Reported) Hydrocodone/Acetaminophen 1 Each Tablet, 1 TAB PO Q6H Prescribed by: ABEBA SALAMANCA on 12/19/19 1004 Insulin Glargine,Hum.rec.anlog 100 Unit/1 Ml Insuln.pen, 10 UNIT SQ HS, (Reported) Loratadine 10 Mg Capsule, 10 MG PO DAILY, (Reported) Magnesium Oxide 250 Mg Tablet, 250 MG PO DAILY, (Reported) Mv-Mn/Folic Acid/Calcium/Vit K 1 Each Tablet, 1 EACH PO DAILY, (Reported) Patient Home Medication List Home Medication List Reviewed: Yes Review of Systems Review of Systems Constitutional: see HPI; No chills, No dizziness, No fever; malaise, weakness EENTM: no symptoms reported Respiratory: no symptoms reported; No cough, No short of breath Cardiovascular: No chest pain, No edema, No palpitations, No syncope Gastrointestinal: No constipation, No diarrhea; loss of appetite; No nausea, No vomiting Musculoskeletal: No back pain, No joint pain, No muscle pain; muscle weakness; No neck pain Skin: No change in color, No lesions, No lumps Psychiatric/Neurological: Depressed, Weakness Past Pyupavm-Zqdwcc-Hbmdzo Hx Past Med/Social Hx: Reviewed Nursing Past Med/Soc Hx Patient Social History Alcohol Use: Denies Use Recreational Drug Use: No Smoking Status: Never a Smoker 2nd Hand Smoke Exposure: No Recent Hopitalizations: No Physical Abuse: No Sexual Abuse: No Mistreated: No Fear: No Seasonal Allergies Seasonal Allergies: Yes Past Medical History Surgeries: Yes (BRACHYTHERAPY-CERVIX, eyelid lifted) Abdominal, Appendectomy, Gallbladder, Tonsillectomy Respiratory: Yes (gets SOB with exercise) Cardiac: No Hypertension Neurological: Yes (seizures 40+ years ago) Neuropathy, Traumatic Brain Injury Sexually Transmitted Disease: No HIV/AIDS: No Genitourinary: No Gastrointestinal: Yes Abdominal Hernia Musculoskeletal: Yes (generalized weakness) Endocrine: Yes Diabetes, Insulin dep HEENT: No Cancer: Yes Cervical Did You Recieve Any Treatments: Yes What Type of Treatment Did You: Chemotherapy, Radiation Psychosocial: No Integumentary: No Blood Disorders: No Family Medical History Cardiovascular disease 19 FATHER Diabetes mellitus 19 FATHER G8 BROTHER Respiratory disorder 19 MOTHER Physical Exam Vital Signs Vital Signs - First Documented 01/19/20 13:01 Temp 36.7 Pulse 100 Resp 18 B/P (MAP) 141/73 (95) Pulse Ox 98 O2 Delivery Room Air Capillary Refill : Height, Weight, BMI Height: '" Weight: lbs. oz. 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 as Tested, Motor Weakness Skin: Normal Color, Warm/Dry Progress/Results/Core Measures Suspected Sepsis SIRS Temperature: Pulse: Respiratory Rate: Laboratory Tests 01/19/20 13:10: White Blood Count 2.9L Blood Pressure / Mean: Laboratory Tests 01/19/20 13:10: Creatinine 0.56L, Platelet Count 230, Total Bilirubin 0.4 Results/Orders Lab Results Laboratory Tests Test 01/19/20 13:10 01/19/20 13:51 Range/Units White Blood Count 2.9 L 4.3-11.0 10^3/uL Red Blood Count 3.66 L 4.35-5.85 10^6/uL Hemoglobin 11.2 L 11.5-16.0 G/DL Hematocrit 33 L 35-52 % Mean Corpuscular Volume 90 80-99 FL Mean Corpuscular Hemoglobin 31 25-34 PG Mean Corpuscular Hemoglobin Concent 34 32-36 G/DL Red Cell Distribution Width 13.6 10.0-14.5 % Platelet Count 230 130-400 10^3/uL Mean Platelet Volume 8.6 7.4-10.4 FL Neutrophils (%) (Auto) 71 42-75 % Lymphocytes (%) (Auto) 18 12-44 % Monocytes (%) (Auto) 8 0-12 % Eosinophils (%) (Auto) 3 0-10 % Basophils (%) (Auto) 0 0-10 % Neutrophils # (Auto) 2.1 1.8-7.8 X 10^3 Lymphocytes # (Auto) 0.5 L 1.0-4.0 X 10^3 Monocytes # (Auto) 0.2 0.0-1.0 X 10^3 Eosinophils # (Auto) 0.1 0.0-0.3 10^3/uL Basophils # (Auto) 0.0 0.0-0.1 10^3/uL Sodium Level 139 135-145 MMOL/L Potassium Level 3.8 3.6-5.0 MMOL/L Chloride Level 102 98-107 MMOL/L Carbon Dioxide Level 27 21-32 MMOL/L Anion Gap 10 5-14 MMOL/L Blood Urea Nitrogen 23 H 7-18 MG/DL Creatinine 0.56 L 0.60-1.30 MG/DL Estimat Glomerular Filtration Rate > 60 BUN/Creatinine Ratio 41 Glucose Level 152 H 70-105 MG/DL Calcium Level 9.7 8.5-10.1 MG/DL Corrected Calcium 10.1 8.5-10.1 MG/DL Magnesium Level 1.5 L 1.6-2.4 MG/DL Total Bilirubin 0.4 0.1-1.0 MG/DL Aspartate Amino Transf (AST/SGOT) 18 5-34 U/L Alanine Aminotransferase (ALT/SGPT) 8 0-55 U/L Alkaline Phosphatase 67 40-136 U/L Total Protein 6.9 6.4-8.2 GM/DL Albumin 3.5 3.2-4.5 GM/DL Urine Color YELLOW Urine Clarity CLEAR Urine pH 5.5 5-9 Urine Specific [place] 1.025 H 1.016-1.022 Urine Protein 1+ H NEGATIVE Urine Glucose (UA) NEGATIVE NEGATIVE Urine Ketones NEGATIVE NEGATIVE Urine Nitrite NEGATIVE NEGATIVE Urine Bilirubin NEGATIVE NEGATIVE Urine Urobilinogen 0.2 < = 1.0 MG/DL Urine Leukocyte Esterase 2+ H NEGATIVE Urine RBC (Auto) 2+ H NEGATIVE Urine RBC 5-10 H /HPF Urine WBC 25-50 H /HPF Urine Squamous Epithelial Cells 0-2 /HPF Urine Crystals NONE /LPF Urine Bacteria FEW H /HPF Urine Casts NONE /LPF Urine Mucus NEGATIVE /LPF Urine Culture Indicated YES My Orders Orders - ROVENSTINE,BINDU L DO Ed Iv/Invasive Line Start (01/19/20 13:05) Cbc With Automated Diff (01/19/20 13:05) Comprehensive Metabolic Panel (01/19/20 13:05) Magnesium (01/19/20 13:05) Urinalysis (01/19/20 13:05) Urine Culture (01/19/20 13:51) Vital Signs/I&O 01/19/20 01/19/20 13:01 14:40 Temp 36.7 36.2 Pulse 100 88 Resp 18 18 B/P (MAP) 141/73 (95) 138/72 Pulse Ox 98 98 O2 Delivery Room Air Room Air Capillary Refill : Departure Communication (Admissions) Time/Spoke to Admitting Phy: 14:[address] Lovell who accepts. A Kaci Ledesma on diversion and will send this patient to [facility]. Discussed history of present illness, patient's progressive physical impairment/decline in strength and inability to care for herself. Home health stating that she needs a higher level of care than they're able to provide with recommendations for long-term care. Stage IV ulcer not evaluated. Patient has UTI and antibiotics will be started at the receiving hospital Impression Primary Impression: Weakness generalized Additional Impression: Urinary tract infection Qualified Codes: N39.0 - Urinary tract infection, site not specified Disposition: S[facility]-TRM HOSP Condition: Stable Admissions Decision to Admit Reason: Admit from ER (General) Decision to Admit/Date: Jan 19, 2020 Time/Decision to Admit Time: 14:30 Transfer Transfer Reason: Diversion Time Spoke to Accepting Phy: 14:30 Transfer Facility: [place] Departure-Patient Inst. Referrals: RUSSELL OSORIO DO (PCP) Primary Care Physician OBINNA OSORIO DNP (Family) Primary Care Physician BINDU JACOBSON DO Jan 19, 2020 13:05
[2020-01-19 13:23] LABS: BASOPHILS % (AUTO) 0 % (0-10); EOSINOPHILS % (AUTO) 3 % (0-10); HEMATOCRIT 33 % (35-52); HEMOGLOBIN 11.2 G/DL (11.5-16.0); LYMPHOCYTES # (AUTO) 0.5 X 10^3 (1.0-4.0); LYMPHOCYTES % (AUTO) 18 % (12-44); MEAN CORPUSCULAR HEMOGLOBIN 31 PG (25-34); MEAN CORPUSCULAR HGB CONC 34 G/DL (32-36); MEAN CORPUSCULAR VOLUME 90 FL (80-99); MEAN PLATELET VOLUME 8.6 FL (7.4-10.4); MONOCYTES % (AUTO) 8 % (0-12); NEUTROPHILS # (AUTO) 2.1 X 10^3 (1.8-7.8); NEUTROPHILS % (AUTO) 71 % (42-75); PLATELET COUNT 230 10^3/uL (130-400); WHITE BLOOD COUNT 2.9 10^3/uL (4.3-11.0)
[2020-01-19 13:24] LABS: EOSINOPHILS # (AUTO) 0.1 10^3/uL (0.0-0.3); MONOCYTES # (AUTO) 0.2 X 10^3 (0.0-1.0)
[2020-01-19 13:42] LABS: CARBON DIOXIDE 27 MMOL/L (21-32); CHLORIDE 102 MMOL/L (98-107); POTASSIUM 3.8 MMOL/L (3.6-5.0); SODIUM 139 MMOL/L (135-145)
[2020-01-19 13:43] LABS: ALANINE AMINOTRANSFERASE 8 U/L (0-55); ALBUMIN 3.5 GM/DL (3.2-4.5); ALKALINE PHOSPHATASE 67 U/L (40-136); BILIRUBIN,TOTAL 0.4 MG/DL (0.1-1.0); BUN/CREATININE RATIO 41; CALCIUM 9.7 MG/DL (8.5-10.1); CREATININE SERUM 0.56 MG/DL (0.60-1.30); GFR ESTIMATED > 60; GLUCOSE 152 MG/DL (70-105); MAGNESIUM 1.5 MG/DL (1.6-2.4); TOTAL PROTEIN 6.9 GM/DL (6.4-8.2)
[2020-01-19 14:21] LABS: CLARITY,URINE CLEAR; COLOR,URINE YELLOW; PH,URINE 5.5 (5-9)
[2020-01-19 14:22] LABS: BACTERIA,URINE FEW /HPF; BILIRUBIN,URINE NEGATIVE (NEGATIVE); GLUCOSE, URINE (UA) NEGATIVE (NEGATIVE); KETONES,URINE NEGATIVE (NEGATIVE); LEUKOCYTE ESTERASE ,URINE 2+ (NEGATIVE); NITRITE,URINE NEGATIVE (NEGATIVE); PROTEIN,URINE 1+ (NEGATIVE); SQUAMOUS EPITHELIAL CELL,UR 0-2 /HPF; WBC,URINE 25-50 /HPF
[2020-01-19 14:40] VITALS: BP 138/72
== END 2020-01-19 15:41 | disposition short-term general hospital (02) ==
LOC: EDUNIT# 12:51 → ER FS 12:51
DX: N39.0 Urinary tract infection, site not specified (principal); E11.40 Type 2 diabetes mellitus with diabetic neuropathy, unspecified; L98.419 Non-pressure chronic ulcer of buttock with unspecified severity; Z87.820 Personal history of traumatic brain injury; Z85.41 Personal history of malignant neoplasm of cervix uteri; Z82.49 Family history of ischemic heart disease and other diseases of the circulatory system; Z88.0 Allergy status to penicillin; Z88.1 Allergy status to other antibiotic agents; Z88.2 Allergy status to sulfonamides; Z88.8 Allergy status to other drugs, medicaments and biological substances
CPT/HCPCS: 36415; 80053; 81000; 83735; 85025; 87088

== ENCOUNTER → 2020-03-17 | Outpatient (CLI) | payer MEDICARE, OTHER | LOC: WOUNDCARE 10:59 | PROVIDERS: ATTEND Surgery | DX: E11.52 Type 2 diabetes mellitus with diabetic peripheral angiopathy with gangrene (principal); E11.622 Type 2 diabetes mellitus with other skin ulcer; I96 Gangrene, not elsewhere classified; L89.154 Pressure ulcer of sacral region, stage 4; M62.3 Immobility syndrome (paraplegic) ==

== ENCOUNTER → 2020-03-31 | Outpatient (CLI) | payer MEDICARE, OTHER | LOC: WOUNDCARE 16:00 | PROVIDERS: ATTEND Surgery | DX: E11.622 Type 2 diabetes mellitus with other skin ulcer (principal); L89.154 Pressure ulcer of sacral region, stage 4; M62.3 Immobility syndrome (paraplegic) ==

== ENCOUNTER → 2020-04-07 | Outpatient (CLI) | payer MEDICARE, OTHER ==
[2020-04-07 18:46] LABS: BILIRUBIN,URINE NEGATIVE (NEGATIVE); CLARITY,URINE CLEAR; COLOR,URINE YELLOW; GLUCOSE, URINE (UA) NEGATIVE (NEGATIVE); KETONES,URINE NEGATIVE (NEGATIVE); LEUKOCYTE ESTERASE ,URINE NEGATIVE (NEGATIVE); NITRITE,URINE NEGATIVE (NEGATIVE); PROTEIN,URINE TRACE (NEGATIVE)
[2020-04-07 18:56] LABS: BACTERIA,URINE NEGATIVE /HPF
== END ==
LOC: CVS 18:39
PROVIDERS: ATTEND Internal Medicine
DX: Z01.89 Encounter for other specified special examinations (principal)
CPT/HCPCS: 81000; 87088

== ENCOUNTER → 2020-04-18 | Outpatient (CLI) | payer MEDICARE, OTHER | LOC: WOUNDCARE 09:15 | PROVIDERS: ATTEND Surgery | DX: I96 Gangrene, not elsewhere classified (principal); E11.622 Type 2 diabetes mellitus with other skin ulcer; L89.154 Pressure ulcer of sacral region, stage 4; M62.3 Immobility syndrome (paraplegic) ==

== ENCOUNTER → 2020-05-27 | Outpatient (CLI) | payer MEDICARE, OTHER | LOC: WOUNDCARE 16:30 | PROVIDERS: ATTEND Surgery | DX: I96 Gangrene, not elsewhere classified (principal); L89.154 Pressure ulcer of sacral region, stage 4; M62.3 Immobility syndrome (paraplegic); E11.622 Type 2 diabetes mellitus with other skin ulcer ==

== ENCOUNTER → 2020-06-10 | Outpatient (CLI) | payer MEDICARE, OTHER | LOC: WOUNDCARE 15:51 | PROVIDERS: ATTEND Surgery | DX: L89.154 Pressure ulcer of sacral region, stage 4 (principal); M62.3 Immobility syndrome (paraplegic); E11.622 Type 2 diabetes mellitus with other skin ulcer ==

== ENCOUNTER 2020-06-20 13:40 | Outpatient (CLI) | payer MEDICARE, OTHER ==
[~2020-06-20] VITALS: Ht 165.1 cm; Wt 56.8 kg
[2020-06-20 13:28] VITALS: BP 134/60
[2020-06-20] MEDS ORDERED: BAMLANIVIMAB (NON FORM) 700 MG in NS (IVPB) 100 ML IV ONE (14:00)
[2020-06-20] MEDS ORDERED: EPINEPHrine INJECTION 1 MG/ML AMP IM PRN (14:00)
[2020-06-20] MEDS ORDERED: diphenhydrAMINE 50 MG/ML INJ (BENADRYL) IV PRN (14:00)
[2020-06-20 14:35] VITALS: BP 115/61
== END 2020-06-20 15:23 | disposition home or self-care (01) ==
LOC: INFUSION 13:40
PROVIDERS: ATTEND Internal Medicine
DX: U07.1 COVID-19 (principal)

== ENCOUNTER → 2020-06-27 | Outpatient (CLI) | payer MEDICARE, OTHER | LOC: WOUNDCARE 09:57 | PROVIDERS: ATTEND Orthopaedic Surgery Hand Surgery | DX: E11.52 Type 2 diabetes mellitus with diabetic peripheral angiopathy with gangrene (principal); E11.622 Type 2 diabetes mellitus with other skin ulcer; I96 Gangrene, not elsewhere classified; L89.154 Pressure ulcer of sacral region, stage 4; M62.3 Immobility syndrome (paraplegic) ==

== ENCOUNTER → 2020-07-11 | Outpatient (CLI) | payer MEDICARE, OTHER | LOC: WOUNDCARE 10:00 | PROVIDERS: ATTEND Orthopaedic Surgery Hand Surgery | DX: L89.154 Pressure ulcer of sacral region, stage 4 (principal); M62.3 Immobility syndrome (paraplegic); E11.622 Type 2 diabetes mellitus with other skin ulcer; E11.52 Type 2 diabetes mellitus with diabetic peripheral angiopathy with gangrene ==

== ENCOUNTER → 2020-07-25 | Outpatient (CLI) | payer MEDICARE, OTHER | LOC: WOUNDCARE 10:00 | PROVIDERS: ATTEND Orthopaedic Surgery Hand Surgery | DX: I96 Gangrene, not elsewhere classified (principal); L89.154 Pressure ulcer of sacral region, stage 4; M62.3 Immobility syndrome (paraplegic); E11.622 Type 2 diabetes mellitus with other skin ulcer; R63.4 Abnormal weight loss ==

== ENCOUNTER 2021-10-23 10:59 | Inpatient (IN) | payer MEDICARE, OTHER ==
[~2021-10-23] VITALS: Ht 165.1 cm; Wt 70.0 kg
[2021-10-23 11:41] LABS: BILIRUBIN,URINE NEGATIVE (NEGATIVE); CLARITY,URINE CLEAR; COLOR,URINE YELLOW; GLUCOSE, URINE (UA) NEGATIVE (NEGATIVE); KETONES,URINE NEGATIVE (NEGATIVE); LEUKOCYTE ESTERASE ,URINE 3+ (NEGATIVE); NITRITE,URINE NEGATIVE (NEGATIVE); PH,URINE 6.5 (5-9); PROTEIN,URINE 1+ (NEGATIVE)
[2021-10-23 11:42] LABS: BASOPHILS % (AUTO) 0 % (0-10); EOSINOPHILS # (AUTO) 0.2 10^3/uL (0.0-0.3); EOSINOPHILS % (AUTO) 4 % (0-10); HEMATOCRIT 34 % (35-52); HEMOGLOBIN 11.5 g/dL (11.5-16.0); LYMPHOCYTES # (AUTO) 0.7 10^3/uL (1.0-4.0); LYMPHOCYTES % (AUTO) 16 % (12-44); MEAN CORPUSCULAR HEMOGLOBIN 30 pg (25-34); MEAN CORPUSCULAR HGB CONC 34 g/dL (32-36); MEAN CORPUSCULAR VOLUME 87 fL (80-99); MEAN PLATELET VOLUME 8.4 fL (9.0-12.2); MONOCYTES # (AUTO) 0.3 10^3/uL (0.0-1.0); MONOCYTES % (AUTO) 7 % (0-12); NEUTROPHILS # (AUTO) 3.1 10^3/uL (1.8-7.8); NEUTROPHILS % (AUTO) 73 % (42-75); PLATELET COUNT 188 10^3/uL (130-400); WHITE BLOOD COUNT 4.3 10^3/uL (4.3-11.0)
[2021-10-23 11:46] LABS: ALBUMIN 3.3 GM/DL (3.2-4.5); POTASSIUM 3.9 MMOL/L (3.6-5.0)
[2021-10-23 11:47] LABS: BACTERIA,URINE LARGE /HPF; CALCIUM 9.1 MG/DL (8.5-10.1); WBC,URINE 50-100 /HPF
[2021-10-23 11:50] LABS: BILIRUBIN,TOTAL 0.5 MG/DL (0.1-1.0)
[2021-10-23 11:52] LABS: CREATININE SERUM 0.75 MG/DL (0.60-1.30)
--- NOTE | 2021-10-23 11:58 | ED GU-Female ---
General Chief Complaint: - Reproductive Stated Complaint: BLADDER INFECTION Source: patient, family Exam Limitations: no limitations History of Present Illness Date Seen by Provider: Oct 23, 2021 Time Seen by Provider: 11:53 Initial Comments This is a bedbound 71-year-old female presents to the emergency room for evaluation of generalized malaise and weakness. She states that she has been fighting a urinary tract infection for approximately 5 weeks with her primary care doctor in [facility]. She states that she has been on Keflex and Macrobid without resolution in her symptoms seem to be worsening. Her doctor reportedly obtained a urine culture and told the patient that she needed to come down here for IV Rocephin based on sensitivity reports. 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 She states that she also has extreme soreness to her coccygeal area and that she cannot get home health assistance. She states that normally she does exercises in bed but she has been so weak lately that she cannot eat or drink or do her exercises appropriately. Timing/Duration: other (5 weeks) Severity/Quality: moderate Radiation: none Activities at Onset: none Prior Genitourinary Problems: similar symptoms Allergies and Home Medications Allergies Coded Allergies: Penicillins (Verified Allergy, Severe, SOA, pt has received Ceftriaxone w/o issue, 09/05/19) ciprofloxacin (Verified Allergy, Severe, BURNING SENSATION, 09/04/19) Sulfa (Sulfonamide Antibiotics) (Verified Allergy, Unknown, 09/04/19) bacitracin (Verified Allergy, Unknown, 09/04/19) benazepril (Verified Allergy, Unknown, 09/04/19) nut - unspecified (Verified Allergy, Unknown, 12/14/19) Patient Home Medication List Home Medication List Reviewed: Yes Ascorbic Acid (Vitamin C) 500 Mg Tablet, 1,500 MG PO DAILY, (Reported) Entered as Reported by: KOKO LAZO on 09/05/19944 Last Action: Held Calcium Carbonate/Vitamin D3 (Calcium 500 + Vit D 400 Tablet) 1 Each Tablet, 1 EACH PO DAILY, (Reported) Entered as Reported by: KOKO LAZO on 09/05/19944 Last Action: Held Carvedilol Phosphate (Carvedilol ER) 20 Mg Cpmp.24hr, 20 MG PO DAILY, (Reported) Entered as Reported by: KOKO LAZO on 10/23/211612 Last Action: Converted Cholecalciferol (Vitamin D3) (Vitamin D3) 25 Mcg (1000 Unit) Tablet, 25 MCG PO DAILY, (Reported) Entered as Reported by: KOKO LAZO on 10/23/211614 Last Action: Held Cyanocobalamin (Cyanocobalamin Injection) 1,000 Mcg/Ml Inj, 1 ML IJ TUE, (Reported) Entered as Reported by: KOKO LAZO on 10/23/211612 Last Action: Held Fluconazole (Fluconazole) 50 Mg Tablet, 50 MG PO UD PRN for YEAST , (Reported) Entered as Reported by: KOKO LAZO on 10/23/211612 Last Action: Held Insulin Glargine,Hum.rec.anlog (Lantus Solostar) 100 Unit/1 Ml Insuln.pen, 15 UNIT SQ HS, (Reported) Entered as Reported by: EITAN CRUZ on 06/25/19 1245 Last Action: Held Loratadine (Claritin) 10 Mg Capsule, 10 MG PO DAILY, (Reported) Entered as Reported by: KIMBERLEY ZAMORA on 07/12/19 1138 Last Action: Held Discontinued Medications Carboxymethylcellulose Sodium (Refresh Plus) 1 Each Droperette, 1-2 DROPS OU PRN PRN for DRY EYES, (Reported) Discontinued Reason: No Longer Taking Entered as Reported by: KOKO LAZO on 09/05/19 0945 Last Action: Discontinued Cephalexin (Keflex) 250 Mg Capsule, 250 MG PO Q6H Discontinued Reason: No Longer Taking Prescribed by: RYLAND CORRALES on 09/29/19 1248 Last Action: Discontinued Cyanocobalamin (Vitamin B-12) (Vitamin B-12) 1,000 Mcg Tablet, 1,000 MCG PO DAILY, (Reported) Discontinued Reason: No Longer Taking Entered as Reported by: KOKO LAZO on 09/05/19 0945 Last Action: Discontinued Hydrocodone/Acetaminophen (Hydrocodone/Acetaminophen 5 MG/325 MG TAB) 1 Each Tablet, 1 TAB PO Q6H Discontinued Reason: No Longer Taking Prescribed by: ABEBA SALAMANCA on 12/19/19 1004 Last Action: Discontinued Magnesium Oxide (Magnesium) 250 Mg Tablet, 250 MG PO DAILY, (Reported) Discontinued Reason: No Longer Taking Entered as Reported by: KOKO LAZO on 09/05/19 0955 Last Action: Discontinued Mv-Mn/Folic Acid/Calcium/Vit K (Women's 50 Plus Multivit Tab) 1 Each Tablet, 1 EACH PO DAILY, (Reported) Discontinued Reason: No Longer Taking Entered as Reported by: CHET SMITH on 12/14/19 1104 Last Action: Discontinued Review of Systems Review of Systems Constitutional: malaise, weakness EENTM: no symptoms reported Respiratory: no symptoms reported Cardiovascular: edema Genitourinary: burning, dysuria Musculoskeletal: other (baseline weakness) Skin: change in color (irritation to buttocks) Past Btnzlpo-Mbsiky-Siurao Hx Patient Social History Tobacco Use?: No Substance use?: No Alcohol Use?: No Seasonal Allergies Seasonal Allergies: Yes Past Medical History Surgeries: Yes (BRACHYTHERAPY-CERVIX, eyelid lifted) Abdominal, Appendectomy, Gallbladder, Tonsillectomy Respiratory: Yes (gets SOB with exercise) Cardiac: No Hypertension Neurological: Yes (seizures 40+ years ago) Neuropathy, Traumatic Brain Injury Sexually Transmitted Disease: No HIV/AIDS: No Genitourinary: No Gastrointestinal: Yes Abdominal Hernia Musculoskeletal: Yes (generalized weakness) Endocrine: Yes Diabetes, Insulin dep HEENT: No Cancer: Yes Cervical Did You Recieve Any Treatments: Yes What Type of Treatment Did You: Chemotherapy, Radiation Psychosocial: No Integumentary: No Blood Disorders: No Family Medical History Cardiovascular disease 19 FATHER Diabetes mellitus 19 FATHER G8 BROTHER Respiratory disorder 19 MOTHER Physical Exam Vital Signs Vital Signs - First Documented 10/23/21 10:59 Temp 36.6 Pulse 85 Resp 16 B/P (MAP) 151/74 (99) Pulse Ox 95 O2 Delivery Room Air Capillary Refill : Height, Weight, BMI Height: '" Weight: lbs. oz. 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, no motor/sensory deficits, oriented x 3 Progress/Results/Core Measures Suspected Sepsis SIRS Temperature: Pulse: Respiratory Rate: Laboratory Tests 10/23/21 11:20: White Blood Count 4.3 Blood Pressure / Mean: Laboratory Tests 10/23/21 11:20: Creatinine 0.75, Platelet Count 188, Total Bilirubin 0.5 Results/Orders Lab Results Laboratory Tests Test 10/23/21 11:20 10/23/21 15:52 10/23/21 20:05 10/24/21 05:38 Range/Units White Blood Count 4.3 4.3-11.0 10^3/uL Red Blood Count 3.89 3.80-5.11 10^6/uL Hemoglobin 11.5 11.5-16.0 g/dL Hematocrit 34 L 35-52 % Mean Corpuscular Volume 87 80-99 fL Mean Corpuscular Hemoglobin 30 25-34 pg Mean Corpuscular Hemoglobin Concent 34 32-36 g/dL Red Cell Distribution Width 13.3 10.0-14.5 % Platelet Count 188 130-400 10^3/uL Mean Platelet Volume 8.4 L 9.0-12.2 fL Immature Granulocyte % (Auto) 0 % Neutrophils (%) (Auto) 73 42-75 % Lymphocytes (%) (Auto) 16 12-44 % Monocytes (%) (Auto) 7 0-12 % Eosinophils (%) (Auto) 4 0-10 % Basophils (%) (Auto) 0 0-10 % Neutrophils # (Auto) 3.1 1.8-7.8 10^3/uL Lymphocytes # (Auto) 0.7 L 1.0-4.0 10^3/uL Monocytes # (Auto) 0.3 0.0-1.0 10^3/uL Eosinophils # (Auto) 0.2 0.0-0.3 10^3/uL Basophils # (Auto) 0.0 0.0-0.1 10^3/uL Immature Granulocyte # (Auto) 0.0 0.0-0.1 10^3/uL Urine Color YELLOW Urine Clarity CLEAR Urine pH 6.5 5-9 Urine Specific [place] 1.015 L 1.016-1.022 Urine Protein 1+ H NEGATIVE Urine Glucose (UA) NEGATIVE NEGATIVE Urine Ketones NEGATIVE NEGATIVE Urine Nitrite NEGATIVE NEGATIVE Urine Bilirubin NEGATIVE NEGATIVE Urine Urobilinogen 0.2 < = 1.0 MG/DL Urine Leukocyte Esterase 3+ H NEGATIVE Urine RBC (Auto) 1+ H NEGATIVE Urine RBC 5-10 H /HPF Urine WBC 50-100 H /HPF Urine Crystals NONE /LPF Urine Bacteria LARGE H /HPF Urine Casts NONE /LPF Urine Mucus NEGATIVE /LPF Urine Culture Indicated YES Sodium Level 140 135-145 MMOL/L Potassium Level 3.9 3.6-5.0 MMOL/L Chloride Level 102 98-107 MMOL/L Carbon Dioxide Level 28 21-32 MMOL/L Anion Gap 10 5-14 MMOL/L Blood Urea Nitrogen 18 7-18 MG/DL Creatinine 0.75 0.60-1.30 MG/DL Estimat Glomerular Filtration Rate 85 BUN/Creatinine Ratio 24 Glucose Level 214 H 70-105 MG/DL Calcium Level 9.1 8.5-10.1 MG/DL Corrected Calcium 9.7 8.5-10.1 MG/DL Total Bilirubin 0.5 0.1-1.0 MG/DL Aspartate Amino Transf (AST/SGOT) 13 5-34 U/L Alanine Aminotransferase (ALT/SGPT) 10 0-55 U/L Alkaline Phosphatase 66 40-136 U/L C-Reactive Protein High Sensitivity 0.64 H 0.00-0.50 MG/DL Total Protein 7.0 6.4-8.2 GM/DL Albumin 3.3 3.2-4.5 GM/DL Glucometer 134 H 166 H 75 70-110 MG/DL Test 10/24/21 09:30 Range/Units Glucometer 127 H 70-110 MG/DL Micro Results Microbiology 10/23/21 Blood Culture - Preliminary, Resulted No growth 10/23/21 Urine Culture - Preliminary, Resulted Klebsiella pneumoniae 10/23/21 Blood Culture - Preliminary, Resulted No growth My Orders Orders - CORAL GALLOWAY Blood Culture (10/23/21 11:48) Ceftriaxone 1 Gm Pre-Mix (Rocephin 1 Gm (10/23/21 12:00) Ed Admission (Communication) (10/23/21 13:09) Vital Signs/I&O 10/24/21 10/24/21 10/24/21 08:00 08:07 12:50 Temp 36.6 36.0 Pulse 82 69 Resp 18 18 B/P (MAP) 132/62 (85) 123/79 (94) Pulse Ox 98 96 O2 Delivery Room Air Room Air Room Air Capillary Refill : Departure Impression Primary Impression: Urinary tract infection Additional Impression: Weakness Disposition: ADMITTED INPATIENT Condition: Stable Departure-Patient Inst. Referrals: RUSSELL OSORIO DO (PCP) Primary Care Physician OBINNA OSORIO DNP (Family) Primary Care Physician CORAL GALLOWAY Oct 23, 2021 11:58
[2021-10-23] MEDS ORDERED: cefTRIAXone 1 GM PRE-MIX 50 ML IV ONE (12:00)
[2021-10-23] MEDS ORDERED: ONDANSETRON 4 MG (ZOFRAN) ORAL DISSOLVE TAB PO PRN (14:15)
[2021-10-23] MEDS ORDERED: MELATONIN 3 MG TABLET PO PRN (14:15)
[2021-10-23] MEDS ORDERED: ONDANSETRON 4 MG/2 ML (SDV) Z0FRAN IV PRN (14:15)
[2021-10-23] MEDS ORDERED: ACETAMINOPHEN 325 MG TABLET PO PRN (14:15)
[2021-10-23] MEDS ORDERED: ANTACID SUSP 30 ML UDC (MYLANTA) PO PRN (14:15)
[2021-10-23] MEDS ORDERED: cefTRIAXone 1 GM/50 ML (PRE-MIX) IV NR (14:30)
--- NOTE | 2021-10-23 14:44 | Physical Therapy Evaluation ---
PT Evaluation-General Medical Diagnosis Admission Date Oct 23, 2021 at 13:10 Medical Diagnosis: UTI, weakness Onset Date: Oct 23, 2021 Therapy Diagnosis Therapy Diagnosis: impaired mobility, strength, ROM Precautions Precautions/Isolations: Standard Precautions Referral Physician: Daisha Reason for Referral: Evaluation/Treatment Medical History Additional Medical History Past Medical History Surgeries: Yes (BRACHYTHERAPY-CERVIX, eyelid lifted) Abdominal, Appendectomy, Gallbladder, Tonsillectomy Respiratory: Yes (gets SOB with exercise) Cardiac: No Hypertension Neurological: Yes (seizures 40+ years ago) Neuropathy, Traumatic Brain Injury Sexually Transmitted Disease: No HIV/AIDS: No Genitourinary: No Gastrointestinal: Yes Abdominal Hernia Musculoskeletal: Yes (generalized weakness) Endocrine: Yes Diabetes, Insulin dep HEENT: No Cancer: Yes Cervical Did You Recieve Any Treatments: Yes What Type of Treatment Did You: Chemotherapy, Radiation Psychosocial: No Integumentary: No Blood Disorders: No Reviewed History: Yes Social History Current Living Status: Spouse Patient has stairs to enter her home but states she would like to have a ramp built. Prior Prior Level of Function SCALE: Activities may be completed with or without assistive devices. 3-Ukruvcgqod-jerxrhi completes the activity by him/herself with no assistance from a helper. 5-Set-up or Clean-up Assistance-helper sets up or cleans up; patient completes activity. [place] assists only prior to or following the activity. 4-Supervision or Touching Assistance-helper provides verbal cues and/or touchin g/steadying and/or contact guard assistance as patient completes activity. Assistance may be provided throughout the activity or intermittently. 3-Partial/Moderate Assistance-helper does LESS THAN HALF the effort. Guy lifts, holds or supports trunk or limbs, but provides less than half the effort. 2-Substantial/Maximal Assistance-helper does MORE THAN HALF the effort. Guy lifts or holds trunk or limbs and provides more than half the effort. 2-Fguwpmqbw-kvazde does ALL the effort. Patient does none of the effort to complete the activity. Or, the assistance of 2 or more helpers is required for the patient to complete the activity. If activity was not attempted, code reason: 7-Patient Refused. 9-Not Applicable-not attempted and the patient did not perform the activity before the current illness, exacerbation or injury. 10-Not Attempted due to Environmental Limitations-(lack of equipment, weather restraints, etc.). 88-Not Attempted due to Medical Conditions or Safety Concerns. Bed Mobility: 1 Transfers (B,C,W/C): 1 Gait: 88 Stairs: 88 Indoor Mobility (Ambulation): Dependent Stairs: Not Applicalbe Prior Devices Use: Mechanical lift (sit to stand machine) PT Evaluation-Current Subjective Patient in bed pre tx, agrees to PT, has minor pain in both legs at rest but significant pain on her bottom (patient has a bandage there). Patient apparently has been bedbound for some time now. She has been at home and a residential and has had home therapy. She says she has been working on leg strengthening and sitting on the side of the bed. Patient declines sitting to the side of the bed today due to pain in her bottom and fatigue. Pt/Family Goals "to improve strength" Objective Patient Orientation: Person, Place, Situation ROM/Strength ROM Lower Extremities Greatly generally limited in both legs. Hip flexion only to about 50 degrees, SLR only to about 30 degrees (hamstring tightness), knee flexion 70 degrees. Both legs have approximately the same limitations. She has severe bilateral ankle contractures. Strength Lower Extremities generally 1-2/5 BLE Sensory Vision: Functional Hearing: Functional Sensation Right Lower Extremit: Intact Sensation Left Lower Extremity: Intact Sensation Lower Extremities Patient has intact light touch sensation but states that it is dull. Transfers Roll Left to Right (QC): 1 Patient is rolled on her side for pressure relief with pillow support. Treatment Patient is instructed to perform BLE exercise on her own (QS, GS, HS, hip abd/add). She has been doing these at home apparently and encouraged to continue here. Assessment/Needs Patient in bed post tx with nurse call, phone, tray, all needs met. Patient has impaired mobility, strength, ROM. Patient is motivated to work with PT and could increase her ROM and strength a little but would probably need surgery to improve ROM any significant amount. Rehab Potential: Poor PT Mcfp Goals Dough Mixer Goals PT Dough Mixer Goals Time Frame: Oct 30, 2021 Roll Left & Right (QC): 3 Sit to Lying (QC): 3 Lying-Sitting on Side/Bed(QC): 3 PT Plan Problem List Problem List: Activity Tolerance, Functional Strength, Safety, Balance, Gait, Transfer, Bed Mobility, ROM Treatment/Plan Treatment Plan: Continue Plan of Care Treatment Plan: Bed Mobility, Education, Functional Activity Nickolas, Functional Strength, Gait, Safety, Therapeutic Exercise, Transfers Treatment Duration: Oct 23, 2021 Frequency: 6 times per week Estimated Hrs Per Day: .25 hour per day Patient and/or Family Agrees t: Yes Safety Risks/Education Patient Education: Correct Positioning, Safety Issues Teaching Recipient: Patient Teaching Methods: Demonstration, Discussion Response to Teaching: Reinforcement Needed Discharge Recommendations Plan Patient will perform bed mobility and transfer training, balance and endurance training, functional strengthening, and education, to improve functional mobility and independence at home. Therapy Discharge Recommendati: Other, See Comments (NH) Time/GCodes Time In: 1419 Time Out: 1433 Total Billed Treatment Time: 14 Total Billed Treatment 1 visit JAVY MAXWELL PT Oct 23, 2021 14:44
--- NOTE | 2021-10-23 14:45 | Occupational Therapy Eval ---
OT Evaluation-General/PLF Medical Diagnosis Admission Date Oct 23, 2021 at 13:10 Medical Diagnosis: UTI, weakness Onset Date: Oct 30, 2021 Therapy Diagnosis Therapy Diagnosis: Weakness Precautions Precautions/Isolations: Standard Precautions Referral Physician: Daisha Referral Reason: Evaluation/Treatment Medical History Additional Medical History HTN, Neuropathy, Seizures (40+ years ago), TBI, abdominal hernia, DM, Cervical cancer. Current History ED for evaluation due to weakness and general malaise Social History Home: Single Level Current Living Status: Spouse Pt unable to get into her home alone, requires someone to carry her in/out of the house. ADL-Prior Level of Function SCALE: Activities may be completed with or without assistive devices. 1-Lybwzigehm-dhdzmhr completes the activity by him/herself with no assistance from a helper. 5-Set-up or Clean-up Assistance-helper sets up or cleans up; patient completes activity. [place] assists only prior to or following the activity. 4-Supervision or Touching Assistance-helper provides verbal cues and/or touching/steadying and/or contact guard assistance as patient completes activity. Assistance may be provided throughout the activity or intermittently. 3-Partial/Moderate Assistance-helper does LESS THAN HALF the effort. [place] lifts, holds or supports trunk or limbs, but provides less than half the effort. 2-Substantial/Maximal Assistance-helper does MORE THAN HALF the effort. [place] lifts or holds trunk or limbs and provides more than half the effort. 5-Febfpssvx-ixfwps does ALL the effort. Patient does none of the effort to complete the activity. Or, the assistance of 2 or more helpers is required for the patient to complete the activity. If activity was not attempted, code reason: 7-Patient Refused. 9-Not Applicable-not attempted and the patient did not perform the activity before the current illness, exacerbation or injury. 10-Not Attempted due to Environmental Limitations-(lack of equipment, weather restraints, etc.). 88-Not Attempted due to Medical Conditions or Safety Concerns. ADL PLOF Comments Pt reports requiring assistance at PLOF. She has been bedbound for around a year or more after returning home from SNF. She has not been able to get out of bed since. She indicates HH therapy has been working on increasing UE/LE strength in order to work towards sitting EOB. Pt is able to feed herself, complete oral care, change a shirt, and assist with UE bathing (bedlevel), and assist with hygiene. When pt needs to use the bathroom, she wads up "high quality" toilet paper, puts it between her legs, urinates/BM, then throws TP away. Her assists pt with hygiene. Pt has a trapeze above her bed, and was using it to work on UB strengthening. Self Care: Needed Some Help Functional Cognition: Independent OT Current Status Subjective Pt in bed, tearful at times stating she is so thankful therapy is in the room. Pt indicates she is motivated and would like to get out of bed eventually. Mental Status/Objective Patient Orientation: Person, Place, Situation Current Upper Extremity ROM WFL, BUE shoulder flexion to approx 140 degrees. 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 Pt reports HH OT told her this was due to muscle atrophy and not arthritis. Upper Extremity Coordination Decreased due to limited movement in L hand. WFL overall. Upper Extremity Strength RUE 3/5 elbow flexion/extension. LUE 3+/5 elbow flexion/extension ADL-Treatment Eating (QC): 5 (Per pt report, she is able to use utensils in order to eat.) Oral Hygiene (QC): 5 (per clinical judgment.) Upper Body Dressing (QC): 3 (Per clinical judgment, pt would require min A with task) On/Off Footwear (QC): 1 (Per clinical judgment and decreased movement LEs, pt would require total assist.) Other Treatments Pt in bed, agreeable to OT evaluation. Pt provided information about PLOF and home set up, and participated in UE Screen. Pt indicates she is motivated to co ntinue UE strengthening in order to increase independence, and eventually sit EOB. Pt c/o soreness in buttocks, total assist to roll towards R side in order for pillows to be placed to relieve pressure on buttocks. Post tx, pt in bed, call light in reach and all needs met. Education OT Patient Education: Correct positioning, Energy conservation, Modified ADL techniques, Progress toward Goal/Update tx plan, Purpose of tx/functional activities, Rehab process Teaching Recipient: Patient Teaching Methods: Discussion Response to Teaching: Verbalize Understanding OT Mcfp Goals Digital Watch Assembler Goals Time Frame: Oct 30, 2021 Eating (QC): 6 Pt will be provided with HEP for UE exercises/strengthening and will demonstrate independence with HEP. Additional Goals: 1-Demonstrate ADL Tasks, 2-Verbalize Understanding, 3-ImproveStrength/Nickolas 1=Demonstrate adherence to instructed precautions during ADL tasks. 2=Patient will verbalize/demonstrate understanding of assistive devices/modifications for ADL. 3=Patient will improve strength/tolerance for activity to enable patient to perform ADL's. OT Education/Plan Problem List/Assessment Assessment: Decreased Activ Tolerance, Decreased UE Strength, Dependent Transfers, Impaired Bed Mobility, Impaired Coordination, Impaired Funct Balance, Impaired I ADL's, Impaired Self-Care Skills, Restricted Funct UE ROM Pt is currently at [facility] with ADLs/self care tasks, requiring assistance with all due to being bedbound. Pt would benefit in skilled OT services in order to provide pt with written HEP for UE exercises/strengthening, and to work towards goal of pt being independent with HEP. Discharge Recommendations Plan/Recommendations: Continue POC Treatment Plan/Plan of Care Patient would benefit from OT for education, treatment and training to promote independence in ADL's, mobility, safety and/or upper extremity function for ADL's. Plan of Care: ADL Retraining, Functional Mobility, UE Funct Exercise/Act Treatment Duration: Oct 30, 2021 Frequency: 3 times per week (3-5 times per week) Time/GCodes Start Time: 14:19 Stop Time: 14:33 Total Time Billed (hr/min): 14 Billed Treatment Time 1, LORRAINE ANTONY OT Oct 23, 2021 14:45
[2021-10-23 14:46] VITALS: BP 143/73
[2021-10-23] MEDS ORDERED: ENOXAPARIN 40 MG/0.4 ML (LOVENOX) SYR SQ SCH (15:00)
[2021-10-23 15:48] VITALS: BP 142/70
[2021-10-23] MEDS: inSUlin ASPART (NovoLOG) 1 UNIT/0.01 ML (CHARGE PER UNIT) SC SCH ×2 (16:00→20:56)
[2021-10-23] MEDS ORDERED: CARV20CP7 PO (16:13)
[2021-10-23] MEDS ORDERED: FLUC50TA22 PO (16:13)
[2021-10-23] MEDS ORDERED: CNC1KV IJ (16:13)
[2021-10-23] MEDS ORDERED: CHOL-34 PO (16:15)
[2021-10-23] MEDS ORDERED: CATHETER FLUSH 10 ML SYR IV PRN (17:45)
[2021-10-23 19:14] VITALS: BP 145/70
[2021-10-23] MEDS: CATHETER FLUSH 10 ML SYR IV SCH (20:58)
[2021-10-24] VITALS (7 sets, daily range): BP systolic 112–138; BP diastolic 59–88
[2021-10-24] MEDS: inSUlin ASPART (NovoLOG) 1 UNIT/0.01 ML (CHARGE PER UNIT) SC SCH ×4 (05:55→20:53)
[2021-10-24] MEDS: CATHETER FLUSH 10 ML SYR IV SCH ×3 (05:55→22:12)
[2021-10-24] MEDS ORDERED: CARVEDILOL PHOSPHATE 20 MG PO SCH (09:00)
--- NOTE | 2021-10-24 10:09 | Physical Therapy Daily Note ---
PT Daily Note-Current Subjective States that she is doing well but that she wants to get stronger. Transfers SCALE: Activities may be completed with or without assistive devices. 6-Qogsveeaak-bjovebw completes the activity by him/herself with no assistance from a helper. 5-Set-up or Clean-up Assistance-helper sets up or cleans up; patient completes activity. [place] assists only prior to or following the activity. 4-Supervision or Touching Assistance-helper provides verbal cues and/or touching/steadying and/or contact guard assistance as patient completes activi ty. Assistance may be provided throughout the activity or intermittently. 3-Partial/Moderate Assistance-helper does LESS THAN HALF the effort. [place] lifts, holds or supports trunk or limbs, but provides less than half the effort. 2-Substantial/Maximal Assistance-helper does MORE THAN HALF the effort. [place] lifts or holds trunk or limbs and provides more than half the effort. 1-Exnvpzjfl-oimpbp does ALL the effort. Patient does none of the effort to complete the activity. Or, the assistance of 2 or more helpers is required for the patient to complete the activity. If activity was not attempted, code reason: 7-Patient Refused. 9-Not Applicable-not attempted and the patient did not perform the activity before the current illness, exacerbation or injury. 10-Not Attempted due to Environmental Limitations-(lack of equipment, weather restraints, etc.). 88-Not Attempted due to Medical Conditions or Safety Concerns. Exercises Supine Ex: LE Protocol Supine Reps: 20 Assessment Current Status: Good Progress Patient is very weak but she gives very good effort. PT Long-Term Goals Long-Term Goals PT Long-Term Goals Time Frame: Oct 30, 2021 Roll Left & Right (QC): 3 Sit to Lying (QC): 3 Lying-Sitting on Side/Bed(QC): 3 PT Plan Treatment/Plan Treatment Plan: Continue Plan of Care Treatment Plan: Bed Mobility, Education, Functional Activity Nickolas, Functional Strength, Gait, Safety, Therapeutic Exercise, Transfers Treatment Duration: Oct 23, 2021 Frequency: 6 times per week Estimated Hrs Per Day: .25 hour per day Patient and/or Family Agrees t: Yes Time/GCodes Time In: 0955 Time Out: 1005 Total Billed Treatment Time: 10 Total Billed Treatment 1, EX x 10' AKI AREVALO PT Oct 24, 2021 10:09
[2021-10-24] MEDS: cefTRIAXone 2,000 MG in NS (IVPB) 50 ML IV SCH (14:22)
--- NOTE | 2021-10-24 17:31 | History & Physical-Hospitalist ---
History of Present Illness HPI/Chief Complaint Kemal Mireles is a 71 year old female with PMH HTN, T2DM on insulin, history of cervical cancer, chemotherapy associated neuropathy, who presented with weakness. She has been having trouble with getting a urinary tract infection treated. She denies fevers and chills. She reports nausea but no vomiting. She denies chest pain. She denies shortness of breath and cough. She denies suprapubic abdominal pain. She reports dysuria and frequency. She does not ambulate. Her helps to care for her at home. Source: patient Exam Limitations: no limitations Date Seen 10/24/21 Time Seen by a Provider: 11:45 Attending Physician Jaren Urban DO PCP Admitting Physician: Dee Dee Lowry MD Attending Physician: Dee Dee Lowry MD Referring Physician Date of Admission Oct 23, 2021 at 13:10 Home Medications & Allergies Home Medications Reviewed patient Home Medication Reconciliation performed by pharmacy medication reconciliations pharmacy technician assistant and/or nursing. Patients Allergies have been reviewed. Allergies Allergies Coded Allergies Penicillins (Verified Allergy, Severe, SOA, pt has received Ceftriaxone w/o issue, 09/05/19) ciprofloxacin (Verified Allergy, Severe, BURNING SENSATION, 09/04/19) Sulfa (Sulfonamide Antibiotics) (Verified Allergy, Unknown, 09/04/19) bacitracin (Verified Allergy, Unknown, 09/04/19) benazepril (Verified Allergy, Unknown, 09/04/19) nut - unspecified (Verified Allergy, Unknown, 12/14/19) Past Bbkppar-Sjhmyf-Ethhsc Hx Patient Social History Tobacco Use?: No Use of E-Cig and/or Vaping dev: No Substance use?: No Alcohol Use?: No Pt feels they are or have been: No Immunizations Up To Date First/Initial COVID19 Vaccinat: 05/13/2020 Second COVID19 Vaccination Yuri: 06/02/2020 Tetanus Booster (TDap): Unknown Seasonal Allergies Seasonal Allergies: Yes Current Status status: No status: No Advance Directives: Yes Advance Directive Location: Working on completing Communicates: Verbally Primary Language: Marshallese Preferred Spoken Language: Marshallese Is interpretation needed?: No Sensory deficits: Vision impairment Implanted or Applied Medical D: None Past Medical History Surgeries: Abdominal, Appendectomy, Gallbladder, Tonsillectomy Hypertension Neuropathy, Traumatic Brain Injury Sexually Transmitted Disease: No HIV/AIDS: No Abdominal Hernia Diabetes, Insulin dep Cervical Did You Recieve Any Treatments: Yes What Type of Treatment Did You: Chemotherapy, Radiation Blood Disorders: No Family Medical History Cardiovascular disease 19 FATHER Diabetes mellitus 19 FATHER G8 BROTHER Respiratory disorder 19 MOTHER Review of Systems Constitutional: weakness EENTM: no symptoms reported Respiratory: no symptoms reported Cardiovascular: no symptoms reported Gastrointestinal: no symptoms reported Genitourinary: dysuria, frequency Musculoskeletal: no symptoms reported Skin: no symptoms reported Psychiatric/Neurological: No Symptoms Reported Physical Exam Physical Exam Vital Signs Vital Signs - First Documented 10/23/21 10:59 Temp 36.6 Pulse 85 Resp 16 B/P (MAP) 151/74 (99) Pulse Ox 95 O2 Delivery Room Air Capillary Refill : Less Than 3 Seconds Height, Weight, BMI Height: '" Weight: lbs. oz. kg; 25.68 BMI Method: General Appearance: No Apparent Distress, WD/WN HEENT: PERRL/EOMI, Pharynx Normal Neck: Normal Inspection, Supple Respiratory: No Accessory Muscle Use, No Respiratory Distress, Decreased Breath Sounds Cardiovascular: Regular Rate, Rhythm, No Murmur Gastrointestinal: Normal Bowel Sounds, Non Tender, Soft Extremity: Non Tender; No Inflammation; Swelling Neurologic/Psychiatric: Alert, Oriented x3, Normal Mood/Affect Skin: Normal Color, Warm/Dry Results Results/Procedures Labs Laboratory Tests 10/23/21 11:20 Patient resulted labs reviewed. Assessment/Plan Admission Diagnosis Urinary tract infection Admission Status: Observation Assessment and Plan UTI UA consistent with UTI Urine culture with Klebsiella/Enterobacter, pending further susceptibility Reportedly susceptible to Rocephin per outside susceptibilities Started on IV Rocephin Debility PT/OT is primary caregiver Social work consulted HTN Continue home meds T2DM Decreased dose of Levemir Sliding scale insulin History of cervical cancer Cisplatin induced neuropathy Clinically significant, no acute management needs DVT prophylaxis: SCDs Diagnosis/Problems Diagnosis/Problems (1) UTI (urinary tract infection) Status: Acute Qualifiers: Urinary tract infection type: acute cystitis Hematuria presence: with hematuria Qualified Codes: N30.01 - Acute cystitis with hematuria (2) Debility Status: Acute (3) T2DM (type 2 diabetes mellitus) Status: Acute Qualifiers: Diabetes mellitus terminal gauger insulin use: with care home use Diabetes mellitus complication status: without complication Qualified Codes: E11.9 - Type 2 diabetes mellitus without complications; Z79.4 - care home (current) use of insulin (4) Cisplatin induced neuropathy Status: Chronic DEE DEE LOWRY MD Oct 24, 2021 17:31
[2021-10-25 03:34] VITALS: BP 113/63
[2021-10-25] MEDS: inSUlin ASPART (NovoLOG) 1 UNIT/0.01 ML (CHARGE PER UNIT) SC SCH ×4 (05:28→21:23)
[2021-10-25] MEDS: CATHETER FLUSH 10 ML SYR IV SCH ×3 (05:28→21:27)
[2021-10-25] MEDS ORDERED: BISACODYL 10 MG SUPP (DULCOLAX) PR NR (08:15)
[2021-10-25 08:17] VITALS: BP 148/70
[2021-10-25] MEDS ORDERED: DOCUSATE SODIUM 100 MG (COLACE) CAP PO NR (10:45)
[2021-10-25] MEDS ORDERED: SENNA W/DOCUSATE (SENOKOT S) TABLET PO NR (10:45)
[2021-10-25] MEDS ORDERED: MAGNESIUM CITRATE 300 ML BTL PO NR (10:45)
[2021-10-25 12:54] VITALS: BP 134/58
[2021-10-25] MEDS: cefTRIAXone 2,000 MG in NS (IVPB) 50 ML IV SCH (13:28)
[2021-10-25 16:05] VITALS: BP 127/59
--- NOTE | 2021-10-25 18:25 | Progress Note - Hospitalist ---
Subjective HPI/CC On Admission Date Seen by Provider: Oct 25, 2021 Time Seen by Provider: 10:35 Kemal Mireles is a 71 year old female with PMH HTN, T2DM on insulin, history of cervical cancer, chemotherapy associated neuropathy, who presented with weakness. She has been having trouble with getting a urinary tract infection treated. She denies fevers and chills. She reports nausea but no vomiting. She denies chest pain. She denies shortness of breath and cough. She denies suprapubic abdominal pain. She reports dysuria and frequency. She does not ambulate. Her helps to care for her at home. Subjective/Events-last exam She is feeling constipated. She has some abdominal discomfort. She has no other complaints. Objective Exam Vital Signs Vital Signs Date Time Temp Pulse Resp B/P (MAP) Pulse Ox O2 Delivery O2 Flow Rate FiO2 10/25/21 16:05 36.9 75 18 127/59 (81) 97 Room Air Capillary Refill : Less Than 3 Seconds General Appearance: No Apparent Distress, WD/WN Respiratory: Lungs Clear, No Respiratory Distress Cardiovascular: Regular Rate, Rhythm, No Murmur Gastrointestinal: Normal Bowel Sounds, Soft, Tenderness Extremity: Normal Inspection, No Pedal Edema Neurologic/Psychiatric: Alert, Normal Mood/Affect, Motor Weakness Skin: Normal Color, Warm/Dry Results/Procedures Lab Patient resulted labs reviewed. Assessment/Plan Assessment and Plan Assess & Plan/Chief Complaint UTI UA consistent with UTI Urine culture with Klebsiella Reportedly susceptible to Rocephin per outside susceptibilities Continue IV Rocephin Constipation Begin Colace and Senna Mag citrate once Debility PT/OT is primary caregiver Social work consulted HTN Continue home meds T2DM Decreased dose of Levemir Sliding scale insulin History of cervical cancer Cisplatin induced neuropathy Clinically significant, no acute management needs DVT prophylaxis: SCDs Diagnosis/Problems Diagnosis/Problems (1) UTI (urinary tract infection) Status: Acute Qualifiers: Urinary tract infection type: acute cystitis Hematuria presence: with hematuria Qualified Codes: N30.01 - Acute cystitis with hematuria (2) Debility Status: Acute (3) T2DM (type 2 diabetes mellitus) Status: Acute Qualifiers: Diabetes mellitus director long term care insulin use: with director long term care use Diabetes mellitus complication status: without complication Qualified Codes: E11.9 - Type 2 diabetes mellitus without complications; Z79.4 - long-term (current) use of insulin (4) Cisplatin induced neuropathy Status: Chronic (5) Constipation Status: Acute DEE DEE LOWRY MD Oct 25, 2021 18:25
[2021-10-25 19:48] VITALS: BP 114/56
[2021-10-25] MEDS: DOCUSATE SODIUM 100 MG (COLACE) CAP PO SCH (21:23)
[2021-10-25] MEDS: SENNA W/DOCUSATE (SENOKOT S) TABLET PO SCH (21:23)
[2021-10-26] VITALS (7 sets, daily range): BP systolic 104–131; BP diastolic 56–71
[2021-10-26] MEDS: inSUlin ASPART (NovoLOG) 1 UNIT/0.01 ML (CHARGE PER UNIT) SC SCH ×4 (05:30→21:16)
[2021-10-26] MEDS: CATHETER FLUSH 10 ML SYR IV SCH ×3 (05:31→21:16)
[2021-10-26] MEDS: DOCUSATE SODIUM 100 MG (COLACE) CAP PO SCH ×2 (09:05→21:16)
[2021-10-26] MEDS: SENNA W/DOCUSATE (SENOKOT S) TABLET PO SCH ×2 (09:05→21:16)
--- NOTE | 2021-10-26 10:04 | Physical Therapy Daily Note ---
PT Daily Note-Current Subjective Patient agrees to PT. Mental Status Patient Orientation: Normal For Age Attachments: IV Transfers SCALE: Activities may be completed with or without assistive devices. 1-Aglfhnkmev-vzjtipw completes the activity by him/herself with no assistance from a helper. 5-Set-up or Clean-up Assistance-helper sets up or cleans up; patient completes activity. [place] assists only prior to or following the activity. 4-Supervision or Touching Assistance-helper provides verbal cues and/or touching/steadying and/or contact guard assistance as patient completes activity. Assistance may be provided throughout the activity or intermittently. 3-Partial/Moderate Assistance-helper does LESS THAN HALF the effort. [place] lifts, holds or supports trunk or limbs, but provides less than half the effort. 2-Substantial/Maximal Assistance-helper does MORE THAN HALF the effort. [place] lifts or holds trunk or limbs and provides more than half the effort. 8-Jxtciylot-lrxmvh does ALL the effort. Patient does none of the effort to complete the activity. Or, the assistance of 2 or more helpers is required for the patient to complete the activity. If activity was not attempted, code reason: 7-Patient Refused. 9-Not Applicable-not attempted and the patient did not perform the activity before the current illness, exacerbation or injury. 10-Not Attempted due to Environmental Limitations-(lack of equipment, weather restraints, etc.). 88-Not Attempted due to Medical Conditions or Safety Concerns. Gait Training Does the Patient Walk?: No and Walking Goal NOT indicated Exercises Supine Ex: LE Protocol Supine Reps: 20 (2 sets) Assessment Patient has increase c/o pain in all joints bilateral LE with all ROM. Patient is currently a Hair lift for OOB activity, however, patient declines at this time. PT Industrial Manufacturing Technician Goals Detention Goals PT Detention Goals Time Frame: Oct 30, 2021 Roll Left & Right (QC): 3 Sit to Lying (QC): 3 Lying-Sitting on Side/Bed(QC): 3 PT Plan Treatment/Plan Treatment Plan: Continue Plan of Care Treatment Plan: Bed Mobility, Education, Functional Activity Nickolas, Functional Strength, Gait, Safety, Therapeutic Exercise, Transfers Treatment Duration: Oct 23, 2021 Frequency: 6 times per week Estimated Hrs Per Day: .25 hour per day Patient and/or Family Agrees t: Yes Time/GCodes Time In: 832 Time Out: 842 Total Billed Treatment Time: 10 Total Billed Treatment 1 visit EX 10 min NESTOR GLIL PT Oct 26, 2021 10:04
--- NOTE | 2021-10-26 11:42 | Occupational Ther Daily Note ---
OT Current Status-Daily Note Subjective Pt alert, lying in bed. Pt agrees to therapy. No c/o pain at this time. Mental Status/Objective Patient Orientation: Person, Place, Time, Situation Attachments: [place]imes Catheter, IV ADL-Treatment Therapy Code Descriptions/Definitions Functional [place] Measure: 0=Not Assessed/NA 4=Minimal Assistance 1=Total Assistance 5=Supervision or Setup 2=Maximal Assistance 6=Modified [place] 3=Moderate Assistance 7=Complete IndependenceSCALE: Activities may be completed with or without assistive devices. 4-Gyjndorlwo-xxusnyj completes the activity by him/herself with no assistance from a helper. 5-Set-up or Clean-up Assistance-helper sets up or cleans up; patient completes activity. [place] assists only prior to or following the activity. 4-Supervision or Touching Assistance-helper provides verbal cues and/or touching/steadying and/or contact guard assistance as patient completes activity. Assistance may be provided throughout the activity or intermittently. 3-Partial/Moderate Assistance-helper does LESS THAN HALF the effort. [place] lifts, holds or supports trunk or limbs, but provides less than half the effort. 2-Substantial/Maximal Assistance-helper does MORE THAN HALF the effort. [place] lifts or holds trunk or limbs and provides more than half the effort. 1-Yfaevjtsl-yfeota does ALL the effort. Patient does none of the effort to complete the activity. Or, the assistance of 2 or more helpers is required for the patient to complete the activity. If activity was not attempted, code reason: 7-Patient Refused. 9-Not Applicable-not attempted and the patient did not perform the activity before the current illness, exacerbation or injury. 10-Not Attempted due to Environmental Limitations-(lack of equipment, weather restraints, etc.). 88-Not Attempted due to Medical Conditions or Safety Concerns. Other Treatment Pt given HEP and medium resistance theraband to increase strength and activity tolerance for daily functional tasks. Skilled instruction given for correct technique and modification when needed. Pt was able to demonstrate personal exercise routine with theraband and completed 1 set 10 reps of each. MA instructed pt on 2 more exercises that would benefit pt with B UE strengthening. Pt was able to demonstrate understanding. After therapy, pt lying in bed with call light/phone in reach. All needs met in room. OT Mri Ct Tech Goals Mri Ct Tech Goals Time Frame: Oct 30, 2021 Eating (QC): 6 Pt will be provided with HEP for UE exercises/strengthening and will demonstrate independence with HEP. Additional Goals: 1-Demonstrate ADL Tasks, 2-Verbalize Understanding, 3- ImproveStrength/Nickolas 1=Demonstrate adherence to instructed precautions during ADL tasks. 2=Patient will verbalize/demonstrate understanding of assistive devices/modifications for ADL. 3=Patient will improve strength/tolerance for activity to enable patient to perform ADL's. OT Education/Plan Problem List/Assessment Assessment: Decreased Activ Tolerance, Decreased UE Strength Pt is currently at [facility] with ADLs/self care tasks, requiring assistance with all due to being bedbound. Pt would benefit in skilled OT services in order to provide pt with written HEP for UE exercises/strengthening, and to work towards goal of pt being independent with HEP. Discharge Recommendations Plan/Recommendations: Continue POC Treatment Plan/Plan of Care Patient would benefit from OT for education, treatment and training to promote independence in ADL's, mobility, safety and/or upper extremity function for ADL's. Plan of Care: ADL Retraining, Functional Mobility, UE Funct Exercise/Act Treatment Duration: Oct 30, 2021 Frequency: 3 times per week (3-5 times per week) Rehab Potential: Poor Time/GCodes Start Time: 11:00 Stop Time: 11:13 Total Time Billed (hr/min): 13 Billed Treatment Time 1 visit-EX 1 (13 min) LEOBARDO SO Oct 26, 2021 11:42
[2021-10-26] MEDS: cefTRIAXone 2,000 MG in NS (IVPB) 50 ML IV SCH (14:56)
--- NOTE | 2021-10-26 18:45 | Progress Note - Hospitalist ---
Subjective HPI/CC On Admission Date Seen by Provider: Oct 26, 2021 Time Seen by Provider: 11:30 Kemal Mireles is a 71 year old female with PMH HTN, T2DM on insulin, history of cervical cancer, chemotherapy associated neuropathy, who presented with weakness. She has been having trouble with getting a urinary tract infection treated. She denies fevers and chills. She reports nausea but no vomiting. She denies chest pain. She denies shortness of breath and cough. She denies suprapubic abdominal pain. She reports dysuria and frequency. She does not ambulate. Her helps to care for her at home. Subjective/Events-last exam She is feeling about the same. She had several bowel movements yesterday. She is worried about going home. She thinks she needs more therapy. We discussed home health versus skilled plaement, if approved, and she will discuss with her . Objective Exam Vital Signs Vital Signs Date Time Temp Pulse Resp B/P (MAP) Pulse Ox O2 Delivery O2 Flow Rate FiO2 10/26/21 16:00 36.8 78 18 118/56 (76) 96 Room Air Capillary Refill : Less Than 3 Seconds General Appearance: No Apparent Distress, Anxious Respiratory: Lungs Clear, No Respiratory Distress Cardiovascular: Regular Rate, Rhythm, No Murmur Gastrointestinal: Normal Bowel Sounds, Soft Extremity: Normal Inspection, Pedal Edema Neurologic/Psychiatric: Alert, Motor Weakness Skin: Normal Color, Warm/Dry Results/Procedures Lab Patient resulted labs reviewed. Assessment/Plan Assessment and Plan Assess & Plan/Chief Complaint UTI UA consistent with UTI Urine culture with Klebsiella Tranition to Omnicef Debility PT/OT is primary caregiver Social work consulted HTN Continue home meds T2DM Decreased dose of Levemir Sliding scale insulin History of cervical cancer Cisplatin induced neuropathy Clinically significant, no acute management needs DVT prophylaxis: SCDs Constipation, resolved Diagnosis/Problems Diagnosis/Problems (1) UTI (urinary tract infection) Status: Acute Qualifiers: Urinary tract infection type: acute cystitis Hematuria presence: with hematuria Qualified Codes: N30.01 - Acute cystitis with hematuria (2) Debility Status: Acute (3) T2DM (type 2 diabetes mellitus) Status: Acute Qualifiers: Diabetes mellitus machine long goods helper insulin use: with fdc use Diabetes mellitus complication status: without complication Qualified Codes: E11.9 - Type 2 diabetes mellitus without complications; Z79.4 - beef splitter (current) use of insulin (4) Cisplatin induced neuropathy Status: Chronic (5) Constipation Status: Acute DEE DEE LOWRY MD Oct 26, 2021 18:45
[2021-10-26] MEDS: CEFDINIR 300 MG (OMNICEF) CAP PO SCH (21:16)
[2021-10-27 05:00] VITALS: BP 125/63
[2021-10-27] MEDS: CATHETER FLUSH 10 ML SYR IV SCH ×3 (05:39→19:55)
[2021-10-27] MEDS: inSUlin ASPART (NovoLOG) 1 UNIT/0.01 ML (CHARGE PER UNIT) SC SCH ×4 (05:39→21:29)
[2021-10-27 08:13] VITALS: BP 121/81
[2021-10-27] MEDS: CEFDINIR 300 MG (OMNICEF) CAP PO SCH ×2 (08:15→19:53)
[2021-10-27] MEDS: DOCUSATE SODIUM 100 MG (COLACE) CAP PO SCH ×2 (08:15→19:53)
[2021-10-27] MEDS: SENNA W/DOCUSATE (SENOKOT S) TABLET PO SCH ×2 (08:15→19:53)
[2021-10-27] MEDS: polyethylene glycoL POWDER 17 GM (MIRALAX) PACK PO PRN (08:26)
[2021-10-27] MEDS ORDERED: HYPOCHLOROUS ACID/NaCl (VASHE) 250 ML IR PRN (10:45)
--- NOTE | 2021-10-27 11:46 | Occupational Ther Daily Note ---
OT Current Status-Daily Note Subjective Pt alert, lying in bed. Pt agrees to therapy. PT entered room during session and OT/PT encouraged pt to sit on EOB, pt adamantly refused to try this stating that she has a new wound on buttocks and that due to medical issues is not able to complete at this time. asked if there was exercises that pt could do to strengthen while in bed. PT will come back at a later time. Mental Status/Objective Patient Orientation: Person, Place, Time, Situation Attachments: IV ADL-Treatment Therapy Code Descriptions/Definitions Functional [place] Measure: 0=Not Assessed/NA 4=Minimal Assistance 1=Total Assistance 5=Supervision or Setup 2=Maximal Assistance 6=Modified [place] 3=Moderate Assistance 7=Complete IndependenceSCALE: Activities may be completed with or without assistive devices. 5-Ocurncsslq-mqmpzga completes the activity by him/herself with no assistance from a helper. 5-Set-up or Clean-up Assistance-helper sets up or cleans up; patient completes activity. [place] assists only prior to or following the activity. 4-Supervision or Touching Assistance-helper provides verbal cues and/or touching/steadying and/or contact guard assistance as patient completes activity. Assistance may be provided throughout the activity or intermittently. 3-Partial/Moderate Assistance-helper does LESS THAN HALF the effort. [place] lifts, holds or supports trunk or limbs, but provides less than half the effort. 2-Substantial/Maximal Assistance-helper does MORE THAN HALF the effort. [place] lifts or holds trunk or limbs and provides more than half the effort. 0-Aeufomdpo-zhjpfs does ALL the effort. Patient does none of the effort to complete the activity. Or, the assistance of 2 or more helpers is required for the patient to complete the activity. If activity was not attempted, code reason: 7-Patient Refused. 9-Not Applicable-not attempted and the patient did not perform the activity before the current illness, exacerbation or injury. 10-Not Attempted due to Environmental Limitations-(lack of equipment, weather restraints, etc.). 88-Not Attempted due to Medical Conditions or Safety Concerns. Other Treatment Pt given medium/heavy resistance therapy sponge to increase machine tank operator and pinch for B hands. With skilled instruction, pt able to complete 4 exercises with correct technique 2 sets 10 reps of each. Noted that pt has Trigger Finger on L hand, nodule palpated on tendon for middle finger. Pt stated that this has been there a long time. Pt given stretches to complete with B hands. After session, pt lying in bed on R side with call light/phone in reach. All needs met. OT Lean Engineer Goals [facility] Goals Time Frame: Oct 30, 2021 Eating (QC): 6 Pt will be provided with HEP for UE exercises/strengthening and will demonstrate independence with HEP. Additional Goals: 1-Demonstrate ADL Tasks, 2-Verbalize Understanding, 3- ImproveStrength/Nickolas 1=Demonstrate adherence to instructed precautions during ADL tasks. 2=Patient will verbalize/demonstrate understanding of assistive devices/modifications for ADL. 3=Patient will improve strength/tolerance for activity to enable patient to perform ADL's. OT Education/Plan Problem List/Assessment Assessment: Decreased Activ Tolerance, Decreased UE Strength, Dependent Transfers, Impaired Bed Mobility, Impaired Self-Care Skills Pt is currently at [facility] with ADLs/self care tasks, requiring assistance with all due to being bedbound. Pt would benefit in skilled OT services in order to provide pt with written HEP for UE exercises/strengthening, and to work towards goal of pt being independent with HEP. Discharge Recommendations Plan/Recommendations: Continue POC Treatment Plan/Plan of Care Patient would benefit from OT for education, treatment and training to promote independence in ADL's, mobility, safety and/or upper extremity function for ADL's. Plan of Care: ADL Retraining, Functional Mobility, UE Funct Exercise/Act Treatment Duration: Oct 30, 2021 Frequency: 3 times per week (3-5 times per week) Rehab Potential: Poor Time/GCodes Start Time: 11:08 Stop Time: 11:27 Total Time Billed (hr/min): 19 Billed Treatment Time 1 visit-EX 1 (19 min) LEOBARDO SO Oct 27, 2021 11:46
[2021-10-27 12:14] VITALS: BP 132/85
--- NOTE | 2021-10-27 14:25 | Physical Therapy Daily Note ---
PT Daily Note-Current Subjective Patient agrees to PT. Transfers SCALE: Activities may be completed with or without assistive devices. 8-Evwxfynkpm-tbxcvaq completes the activity by him/herself with no assistance from a helper. 5-Set-up or Clean-up Assistance-helper sets up or cleans up; patient completes activity. [place] assists only prior to or following the activity. 4-Supervision or Touching Assistance-helper provides verbal cues and/or touching/steadying and/or contact guard assistance as patient completes activity. Assistance may be provided throughout the activity or intermittently. 3-Partial/Moderate Assistance-helper does LESS THAN HALF the effort. [place] lifts, holds or supports trunk or limbs, but provides less than half the effort. 2-Substantial/Maximal Assistance-helper does MORE THAN HALF the effort. [place] lifts or holds trunk or limbs and provides more than half the effort. 1-Ikyjsjfes-rrfrql does ALL the effort. Patient does none of the effort to complete the activity. Or, the assistance of 2 or more helpers is required for the patient to complete the activity. If activity was not attempted, code reason: 7-Patient Refused. 9-Not Applicable-not attempted and the patient did not perform the activity before the current illness, exacerbation or injury. 10-Not Attempted due to Environmental Limitations-(lack of equipment, weather restraints, etc.). 88-Not Attempted due to Medical Conditions or Safety Concerns. Exercises Supine Ex: Ankle pumps, Heel Slides, Straight leg raise, Hip abd/add Supine Reps: 10 (x 3 sets bilaterally PROM to minimal AAROM left LE) Assessment Current Status: Poor Progress PROM/AAROM performed bilateral LE in supine. Patient declined OOB activity. PT Fpc Goals Sales Engineer Account Manager Goals PT Fpc Goals Time Frame: Oct 30, 2021 Roll Left & Right (QC): 3 Sit to Lying (QC): 3 Lying-Sitting on Side/Bed(QC): 3 PT Plan Treatment/Plan Treatment Plan: Continue Plan of Care Treatment Plan: Bed Mobility, Education, Functional Activity Nickolas, Functional Strength, Gait, Safety, Therapeutic Exercise, Transfers Treatment Duration: Oct 23, 2021 Frequency: 6 times per week Estimated Hrs Per Day: .25 hour per day Patient and/or Family Agrees t: Yes Time/GCodes Time In: 1405 Time Out: 1416 Total Billed Treatment Time: 11 Total Billed Treatment 1 visit EX 11 min BRIDGET,NESTOR PT Oct 27, 2021 14:25
[2021-10-27 16:00] VITALS: BP 124/50
--- NOTE | 2021-10-27 16:26 | Progress Note - Hospitalist ---
Subjective HPI/CC On Admission Date Seen by Provider: Oct 27, 2021 Time Seen by Provider: 12:30 Kemal Mireles is a 71 year old female with PMH HTN, T2DM on insulin, history of cervical cancer, chemotherapy associated neuropathy, who presented with weakness. She has been having trouble with getting a urinary tract infection treated. She denies fevers and chills. She reports nausea but no vomiting. She denies chest pain. She denies shortness of breath and cough. She denies suprapubic abdominal pain. She reports dysuria and frequency. She does not ambulate. Her helps to care for her at home. Subjective/Events-last exam She is feeling about the same. She is not having any bladder issues. She is worried because of some loose stools. She had similar symptoms when she had cervical cancer. She hasn't had her follow up PET scans and wants to have them done now. She also asks about having a CT scan. She was informed that she can follow up with oncologist next week as scheduled for further evaluation. Objective Exam Vital Signs Vital Signs Date Time Temp Pulse Resp B/P (MAP) Pulse Ox O2 Delivery O2 Flow Rate FiO2 10/27/21 16:00 36.6 86 20 124/50 (74) 96 Room Air Capillary Refill : Less Than 3 Seconds General Appearance: No Apparent Distress, Chronically ill Respiratory: Lungs Clear, No Respiratory Distress Cardiovascular: Regular Rate, Rhythm, No Murmur Gastrointestinal: Normal Bowel Sounds, Soft Extremity: Normal Inspection, No Pedal Edema Neurologic/Psychiatric: Alert, Normal Mood/Affect Skin: Normal Color, Warm/Dry Results/Procedures Lab Patient resulted labs reviewed. Imaging: Reviewed Imaging Report Assessment/Plan Assessment and Plan Assess & Plan/Chief Complaint UTI UA consistent with UTI Urine culture with Klebsiella Continue Omnicef Debility PT/OT is primary caregiver Social work consulted IRF denied SNF referral pending PVCs Continue Coreg HTN Continue home meds T2DM Decreased dose of Levemir Sliding scale insulin History of cervical cancer Cisplatin induced neuropathy Clinically significant, no acute management needs DVT prophylaxis: SCDs Constipation, resolved Diagnosis/Problems Diagnosis/Problems (1) UTI (urinary tract infection) Status: Acute Qualifiers: Urinary tract infection type: acute cystitis Hematuria presence: with hematuria Qualified Codes: N30.01 - Acute cystitis with hematuria (2) Debility Status: Acute (3) T2DM (type 2 diabetes mellitus) Status: Acute Qualifiers: Diabetes mellitus long wall mining machine helper insulin use: with long wall mining machine helper use Diabetes mellitus complication status: without complication Qualified Codes: E11.9 - Type 2 diabetes mellitus without complications; Z79.4 - half-way (current) use of insulin (4) Cisplatin induced neuropathy Status: Chronic (5) Constipation Status: Acute DEE DEE LOWRY MD Oct 27, 2021 16:26
[2021-10-27 19:17] VITALS: BP 111/57
[2021-10-27 23:20] VITALS: BP 124/80
[2021-10-28] MEDS: inSUlin ASPART (NovoLOG) 1 UNIT/0.01 ML (CHARGE PER UNIT) SC SCH ×4 (05:24→21:23)
[2021-10-28] MEDS: CATHETER FLUSH 10 ML SYR IV SCH ×3 (05:49→19:57)
[2021-10-28] MEDS: SENNA W/DOCUSATE (SENOKOT S) TABLET PO SCH ×2 (08:16→19:57)
[2021-10-28] MEDS: DOCUSATE SODIUM 100 MG (COLACE) CAP PO SCH ×2 (08:16→19:57)
[2021-10-28] MEDS: CEFDINIR 300 MG (OMNICEF) CAP PO SCH ×2 (08:17→19:57)
[2021-10-28] MEDS: polyethylene glycoL POWDER 17 GM (MIRALAX) PACK PO PRN ×2 (08:17→19:57)
[2021-10-28 08:24] VITALS: BP 133/63
--- NOTE | 2021-10-28 09:58 | Physical Therapy Daily Note ---
PT Daily Note-Current Subjective Patient in bed pre tx, agrees to PT, has unrated pain in legs and bottom. Appearance Patient in bed post tx with nurse call, phone, tray, laying on right side with pillow support for pressure relief. Mental Status Patient Orientation: Person, Place, Situation Attachments: SCD's Transfers SCALE: Activities may be completed with or without assistive devices. 5-Xhdzfhjdbh-cpaqrea completes the activity by him/herself with no assistance from a helper. 5-Set-up or Clean-up Assistance-helper sets up or cleans up; patient completes activity. [place] assists only prior to or following the activity. 4-Supervision or Touching Assistance-helper provides verbal cues and/or touching/steadying and/or contact guard assistance as patient completes activity. Assistance may be provided throughout the activity or intermittently. 3-Partial/Moderate Assistance-helper does LESS THAN HALF the effort. [place] lifts, holds or supports trunk or limbs, but provides less than half the effort. 2-Substantial/Maximal Assistance-helper does MORE THAN HALF the effort. [place] lifts or holds trunk or limbs and provides more than half the effort. 5-Tpwlobnah-odxkvs does ALL the effort. Patient does none of the effort to complete the activity. Or, the assistance of 2 or more helpers is required for the patient to complete the activity. If activity was not attempted, code reason: 7-Patient Refused. 9-Not Applicable-not attempted and the patient did not perform the activity before the current illness, exacerbation or injury. 10-Not Attempted due to Environmental Limitations-(lack of equipment, weather restraints, etc.). 88-Not Attempted due to Medical Conditions or Safety Concerns. Roll Left & Right (QC): 1 Sit to Lying (QC): 1 Lying to Sitting/Side of Bed(Q: 1 Assist of 2 for supine to sit, patient is dizzy, she states she has not been sitting on the side of the bed for months, she also states that she has BPPV, patient sits for a while and does a few LE exercise, dizziness does not pass, lays back down with assist of 2 and assist of 2 to scoot up in bed. Patient also needed assist for sitting balance (max assist) Exercises Seated Therapy Exercises: Long arc quads Seated Reps: 15 Treatments sitting, LE exercise Assessment Current Status: Poor Progress patient was able to sit with assist of 2 but no real change in functional mobility PT Group Home Goals Associate Sales Goals PT Associate Sales Goals Time Frame: Oct 30, 2021 Roll Left & Right (QC): 3 Sit to Lying (QC): 3 Lying-Sitting on Side/Bed(QC): 3 PT Plan Problem List Problem List: Activity Tolerance, Functional Strength, Safety, Balance, Gait, Transfer, Bed Mobility, ROM Treatment/Plan Treatment Plan: Continue Plan of Care Treatment Plan: Bed Mobility, Education, Functional Activity Nickolas, Functional Strength, Gait, Safety, Therapeutic Exercise, Transfers Treatment Duration: Oct 23, 2021 Frequency: 6 times per week Estimated Hrs Per Day: .25 hour per day Patient and/or Family Agrees t: Yes Safety Risks/Education Patient Education: Correct Positioning, Safety Issues Teaching Recipient: Patient Teaching Methods: Demonstration, Discussion Response to Teaching: Reinforcement Needed Time/GCodes Time In: 908 Time Out: 918 Total Billed Treatment Time: 10 Total Billed Treatment 1 visit FA JAVY POWER PT Oct 28, 2021 09:58
--- NOTE | 2021-10-28 11:45 | Occupational Ther Daily Note ---
OT Current Status-Daily Note Subjective Pt alert, lying in bed. Visitors present in room. Pt agrees to therapy. Mental Status/Objective Patient Orientation: Person, Place, Time, Situation Attachments: IV ADL-Treatment Therapy Code Descriptions/Definitions Functional [place] Measure: 0=Not Assessed/NA 4=Minimal Assistance 1=Total Assistance 5=Supervision or Setup 2=Maximal Assistance 6=Modified [place] 3=Moderate Assistance 7=Complete IndependenceSCALE: Activities may be completed with or without assistive devices. 4-Shkjjpjtjo-pvhubcq completes the activity by him/herself with no assistance from a helper. 5-Set-up or Clean-up Assistance-helper sets up or cleans up; patient completes activity. [place] assists only prior to or following the activity. 4-Supervision or Touching Assistance-helper provides verbal cues and/or touching/steadying and/or contact guard assistance as patient completes activity. Assistance may be provided throughout the activity or intermittently. 3-Partial/Moderate Assistance-helper does LESS THAN HALF the effort. [place] lifts, holds or supports trunk or limbs, but provides less than half the effort. 2-Substantial/Maximal Assistance-helper does MORE THAN HALF the effort. [place] lifts or holds trunk or limbs and provides more than half the effort. 5-Qellqiytx-emshen does ALL the effort. Patient does none of the effort to complete the activity. Or, the assistance of 2 or more helpers is required for the patient to complete the activity. If activity was not attempted, code reason: 7-Patient Refused. 9-Not Applicable-not attempted and the patient did not perform the activity before the current illness, exacerbation or injury. 10-Not Attempted due to Environmental Limitations-(lack of equipment, weather restraints, etc.). 88-Not Attempted due to Medical Conditions or Safety Concerns. Other Treatment Pt has demonstrated good technique with medium resistance theraband and med /heavy resistance therapy sponge. Pt educated on alternative exercise equipment that is withing easy reach if regular exercise equipment is not in reach. Pt used pillow for isometric B UE exercises, B shldr flex, B shldr horizontal abd/add with trunk rotation and horizontal int rotation. 2 sets 10 reps for all but trunk rotation which pt declined to complete 2nd set due to R UE tightness and minimal pain. Reported this to nrsg. After session, pt lying in bed with call light/phone in reach. All needs met in room. OT [place] Mechanic Goals Nursing Home Goals Time Frame: Oct 30, 2021 Eating (QC): 6 Pt will be provided with HEP for UE exercises/strengthening and will demonstrate independence with HEP. Additional Goals: 1-Demonstrate ADL Tasks, 2-Verbalize Understanding, 3- ImproveStrength/Nickolas 1=Demonstrate adherence to instructed precautions during ADL tasks. 2=Patient will verbalize/demonstrate understanding of assistive devic es/modifications for ADL. 3=Patient will improve strength/tolerance for activity to enable patient to perform ADL's. OT Education/Plan Problem List/Assessment Assessment: Decreased Activ Tolerance, Decreased Safety Aware, Decreased UE Strength, Dependent Transfers, Impaired Bed Mobility, Impaired Coordination, Impaired Funct Balance, Impaired I ADL's, Impaired Self-Care Skills Pt is currently at [facility] with ADLs/self care tasks, requiring assistance with all due to being bedbound. Pt would benefit in skilled OT services in order to provide pt with written HEP for UE exercises/strengthening, and to work towards goal of pt being independent with HEP. Discharge Recommendations Plan/Recommendations: Continue POC Treatment Plan/Plan of Care Patient would benefit from OT for education, treatment and training to promote independence in ADL's, mobility, safety and/or upper extremity function for ADL's. Plan of Care: ADL Retraining, Functional Mobility, UE Funct Exercise/Act Treatment Duration: Oct 30, 2021 Frequency: 3 times per week (3-5 times per week) Rehab Potential: Poor Time/GCodes Start Time: 10:34 Stop Time: 10:55 Total Time Billed (hr/min): 21 Billed Treatment Time 1 visit-EX 1 (21 min) LEOABRDO SO Oct 28, 2021 11:45
--- NOTE | 2021-10-28 16:38 | Progress Note - Hospitalist ---
Subjective HPI/CC On Admission Date Seen by Provider: Oct 28, 2021 Time Seen by Provider: 11:15 Kemal Mireles is a 71 year old female with PMH HTN, T2DM on insulin, history of cervical cancer, chemotherapy associated neuropathy, who presented with weakness. She has been having trouble with getting a urinary tract infection treated. She denies fevers and chills. She reports nausea but no vomiting. She denies chest pain. She denies shortness of breath and cough. She denies suprapubic abdominal pain. She reports dysuria and frequency. She does not ambulate. Her helps to care for her at home. Subjective/Events-last exam She is feeling better. She has the urge to have a bowel movement. She denies pain. Objective Exam Vital Signs Vital Signs Date Time Temp Pulse Resp B/P (MAP) Pulse Ox O2 Delivery O2 Flow Rate FiO2 10/28/21 08:24 37.2 91 20 133/63 (86) 96 Room Air Capillary Refill : Less Than 3 Seconds General Appearance: No Apparent Distress, Obese Respiratory: Lungs Clear, No Respiratory Distress Cardiovascular: Regular Rate, Rhythm, No Murmur Gastrointestinal: Normal Bowel Sounds, Soft Extremity: Non Tender, Pedal Edema Neurologic/Psychiatric: Alert, Motor Weakness Skin: Normal Color, Warm/Dry Results/Procedures Lab Patient resulted labs reviewed. Imaging: Reviewed Imaging Report Assessment/Plan Assessment and Plan Assess & Plan/Chief Complaint UTI UA consistent with UTI Urine culture with Klebsiella Continue Omnicef Debility PT/OT is primary caregiver Social work consulted IRF denied [facility] referral pending PVCs Continue Coreg HTN Continue home meds T2DM Decreased dose of Levemir Sliding scale insulin History of cervical cancer Cisplatin induced neuropathy Clinically significant, no acute management needs DVT prophylaxis: SCDs Constipation, resolved Diagnosis/Problems Diagnosis/Problems (1) UTI (urinary tract infection) Status: Acute Qualifiers: Urinary tract infection type: acute cystitis Hematuria presence: with hematuria Qualified Codes: N30.01 - Acute cystitis with hematuria (2) Debility Status: Acute (3) T2DM (type 2 diabetes mellitus) Status: Acute Qualifiers: Diabetes mellitus correction insulin use: with rat exterminator use Diabetes mellitus complication status: without complication Qualified Codes: E11.9 - Type 2 diabetes mellitus without complications; Z79.4 - halfway (current) use of insulin (4) Cisplatin induced neuropathy Status: Chronic (5) Constipation Status: Acute DEE DEE LOWRY MD Oct 28, 2021 16:38
[2021-10-28] MEDS ORDERED: MILK OF MAGNESIA 400 MG/5 ML 30 ML UDC PO PRN (16:45)
[2021-10-28] MEDS ORDERED: MILK OF MAGNESIA 400 MG/5 ML 30 ML UDC PO NR (16:45)
[2021-10-28 16:56] VITALS: BP 134/63
[2021-10-28 23:40] VITALS: BP 114/54
[2021-10-29] MEDS: inSUlin ASPART (NovoLOG) 1 UNIT/0.01 ML (CHARGE PER UNIT) SC SCH ×2 (05:49→11:34)
[2021-10-29] MEDS: CATHETER FLUSH 10 ML SYR IV SCH ×2 (05:50→11:51)
[2021-10-29 08:05] VITALS: BP 118/77
[2021-10-29] MEDS: DOCUSATE SODIUM 100 MG (COLACE) CAP PO SCH (08:44)
[2021-10-29] MEDS: CEFDINIR 300 MG (OMNICEF) CAP PO SCH (08:44)
[2021-10-29] MEDS: SENNA W/DOCUSATE (SENOKOT S) TABLET PO SCH (08:45)
[2021-10-29] MEDS ORDERED: CEFD300C3 PO (10:45)
[2021-10-29] MEDS ORDERED: ASCO500T17 PO (10:45)
[2021-10-29] MEDS ORDERED: INSU100I10 SQ (10:45)
[2021-10-29] MEDS ORDERED: CNC1KV IJ (10:45)
[2021-10-29] MEDS ORDERED: CALC-880 PO (10:45)
[2021-10-29] MEDS ORDERED: CHOL-34 PO (10:45)
[2021-10-29] MEDS ORDERED: LORA10CA PO (10:45)
[2021-10-29] MEDS ORDERED: CARV20CP7 PO (10:45)
[2021-10-29] MEDS ORDERED: FLUC50TA22 PO (10:45)
--- NOTE | 2021-10-29 10:46 | Discharge Inst-Skilled Nursing ---
Discharge Inst-Skilled NF Consult/Follow Up/Orders Follow Up Appt.: next group home rounds Skilled NF Admit to: [facility] Certification (SNF) I certify that SNF services are required to be given on an inpatient basis because of the above named patient's need for half-way care on a continuing basis for the conditions(s) for which he/she was receiving inpatient hospital services prior to his/her transfer to the SNF. Prison Facility Order: Nursing Services, President-Evaluate & Treat, Physical Therapy-Evaluate & Treat, Wound Care-Eval/Treat Oxygen Delivery Method: Room Air Discharge Diet: No Restrictions Daily Activity as Tolerated: Yes Resuscitation Status: Full Code New & Resume Previous Orders Yadira Lowry Oct 29, 2021 10:46 YADIRA LOWRY MD Oct 29, 2021 10:46
--- NOTE | 2021-10-29 10:53 | Occupational Ther Daily Note ---
OT Current Status-Daily Note Subjective Pt laying in bed prior to OT tx. Pt agreeable to tx. Mental Status/Objective Patient Orientation: Person, Place, Situation Attachments: Drains ADL-Treatment Therapy Code Descriptions/Definitions Functional [place] Measure: 0=Not Assessed/NA 4=Minimal Assistance 1=Total Assistance 5=Supervision or Setup 2=Maximal Assistance 6=Modified [place] 3=Moderate Assistance 7=Complete IndependenceSCALE: Activities may be completed with or without assistive devices. 1-Yiahfhclkx-lxvoksq completes the activity by him/herself with no assistance from a helper. 5-Set-up or Clean-up Assistance-helper sets up or cleans up; patient completes activity. [place] assists only prior to or following the activity. 4-Supervision or Touching Assistance-helper provides verbal cues and/or touching/steadying and/or contact guard assistance as patient completes activity. Assistance may be provided throughout the activity or intermittently. 3-Partial/Moderate Assistance-helper does LESS THAN HALF the effort. [place] lifts, holds or supports trunk or limbs, but provides less than half the effort. 2-Substantial/Maximal Assistance-helper does MORE THAN HALF the effort. [place] lifts or holds trunk or limbs and provides more than half the effort. 2-Growgepgf-pulvnd does ALL the effort. Patient does none of the effort to complete the activity. Or, the assistance of 2 or more helpers is required for the patient to complete the activity. If activity was not attempted, code reason: 7-Patient Refused. 9-Not Applicable-not attempted and the patient did not perform the activity before the current illness, exacerbation or injury. 10-Not Attempted due to Environmental Limitations-(lack of equipment, weather restraints, etc.). 88-Not Attempted due to Medical Conditions or Safety Concerns. Eating (QC): 5 Other Treatment Pt completed BUE exercises using Theraband (red-med resistance) and workers' compensation claims supervisor sponge (green-med/heavy resistance) to increase BUE strength and endurance, laying in bed. Pt completed 10 reps of 5 different exercises with Theraband (shoulder abductions, B biceps curls, and B tricep extensions). Pt then completed twists, squeezes, and R and L hand finger to thumb opposition with workers' compensation claims supervisor sponge. Pt educated on the importance of continuing BUE exercises to increase strength and endurance and increase IND in ADLs, pt verbally agreed. Pt left in bed with call light in reach and all needs met. Education OT Patient Education: Correct positioning, Energy conservation, Exercise program, Home exercise program, Progress toward Goal/Update tx plan, Rehab process Teaching Recipient: Patient Teaching Methods: Demonstration, Discussion Response to Teaching: Verbalize Understanding, Return Demonstration, Reinforcement Needed OT Mcfp Goals Paid Search Manager Goals Time Frame: Oct 30, 2021 Eating (QC): 6 Pt will be provided with HEP for UE exercises/strengthening and will demonstrate independence with HEP. Additional Goals: 1-Demonstrate ADL Tasks, 2-Verbalize Understanding, 3- ImproveStrength/Nickolas 1=Demonstrate adherence to instructed precautions during ADL tasks. 2=Patient will verbalize/demonstrate understanding of assistive devices/modifications for ADL. 3=Patient will improve strength/tolerance for activity to enable patient to perform ADL's. OT Education/Plan Problem List/Assessment Assessment: Decreased Activ Tolerance, Decreased UE Strength, Dependent Transfers, Impaired Bed Mobility, Impaired Funct Balance, Impaired I ADL's, Impaired Self-Care Skills, Restricted Funct UE ROM Pt is currently at [facility] with ADLs/self care tasks, requiring assistance with all due to being bedbound. Pt would benefit in skilled OT services in order to provide pt with written HEP for UE exercises/strengthening, and to work towards goal of pt being independent with HEP. Discharge Recommendations Plan/Recommendations: Continue POC Treatment Plan/Plan of Care Patient would benefit from OT for education, treatment and training to promote independence in ADL's, mobility, safety and/or upper extremity function for ADL's. Plan of Care: ADL Retraining, Functional Mobility, UE Funct Exercise/Act Treatment Duration: Oct 30, 2021 Frequency: 3 times per week (3-5 times per week) Rehab Potential: Poor Time/GCodes Start Time: 10:12 Stop Time: 10:28 Total Time Billed (hr/min): 16 Billed Treatment Time 1, Ex (16') LORRAINE STEPHENSON OT Oct 29, 2021 10:53
[2021-10-29 14:10] VITALS: BP 118/77
--- NOTE | 2021-10-29 16:24 | Discharge Summary ---
Discharge Summary Hospital Course Problems/Dx: (1) UTI (urinary tract infection) Status: Acute Qualifiers: Qualified Codes: N30.01 - Acute cystitis with hematuria (2) Debility Status: Acute (3) T2DM (type 2 diabetes mellitus) Status: Acute Qualifiers: Qualified Codes: E11.9 - Type 2 diabetes mellitus without complications; Z7 9.4 - halfway (current) use of insulin (4) Cisplatin induced neuropathy Status: Chronic (5) Constipation Status: Acute Hospital Course Date of Admission: Oct 25, 2021 at 17:45 Admission Diagnosis : UTI Family Physician/Provider: Nata Urban Dnp Date of Discharge: 10/29/21 Discharge Diagnosis: UTI Hospital Course: Kemal Mireles is a 71 year old female with PMH HTN, T2DM, history of cervical cancer, cisplatin induced neuropathy, who was admitted with UTI. She was treated with IV Rocephin and improved. She was transitioned to [facility] and will complete a course as an outpatient. Her course was complicted by debility. She was discharged to [facility] for ongoing skilled therapy needs. She should follow up with her PCP and oncologist as scheduled. Labs and Pending Lab Test: Laboratory Tests 10/28/21 16:23: Glucometer 195H 10/28/21 20:44: Glucometer 188H 10/29/21 05:32: Glucometer 143H 10/29/21 07:23: Glucometer 136H 10/29/21 11:15: Glucometer 148H Microbiology 10/23/21 Blood Culture - Final, Complete No growth 10/23/21 Urine Culture - Final, Complete Klebsiella pneumoniae Home Meds Active Cefdinir 300 Mg Capsule 300 Mg PO BID 3 Days Vitamin D3 (Cholecalciferol (Vitamin D3)) 25 Mcg (1000 Unit) Tablet 25 Mcg PO DAILY 30 Days Carvedilol ER (Carvedilol Phosphate) 20 Mg Cpmp.24hr 20 Mg PO DAILY 30 Days Cyanocobalamin Injection (Cyanocobalamin) 1,000 Mcg/Ml Inj 1 Ml IJ TUE 30 Days Fluconazole 50 Mg Tablet 50 Mg PO UD PRN 30 Days Vitamin C (Ascorbic Acid) 500 Mg Tablet 1,500 Mg PO DAILY 30 Days TAKES 3 (500MG) TABS Calcium 500 + Vit D 400 Tablet (Calcium Carbonate/Vitamin D3) 1 Each Tablet 1 Each PO DAILY 30 Days Claritin (Loratadine) 10 Mg Capsule 10 Mg PO DAILY 30 Days Lantus Solostar (Insulin Glargine,Hum.rec.anlog) 100 Unit/1 Ml Insuln.pen 15 Unit SQ HS 30 Days Assessment/Pt Instructions See instructions Discharge Planning: >30 minutes discharge planning Discharge Instructions Discharge Diet: No Restrictions Activity as Tolerated: Yes Discharge Physical Examination Vital Signs Vital Signs Date Time Temp Pulse Resp B/P (MAP) Pulse Ox O2 Delivery O2 Flow Rate FiO2 10/29/21 14:10 37.0 72 18 118/77 96 Room Air General Appearance: No Apparent Distress, Chronically ill Respiratory: Lungs Clear, No Respiratory Distress Cardiovascular: Regular Rate, Rhythm, No Murmur Extremity: Normal Inspection, No Pedal Edema Skin: Normal Color, Warm/Dry Neurologic/Psychiatric: Alert, Normal Mood/Affect, Motor Weakness Allergies: Coded Allergies: Penicillins (Verified Allergy, Severe, SOA, pt has received Ceftriaxone w/o issue, 09/05/19) ciprofloxacin (Verified Allergy, Severe, BURNING SENSATION, 09/04/19) Sulfa (Sulfonamide Antibiotics) (Verified Allergy, Unknown, 09/04/19) bacitracin (Verified Allergy, Unknown, 09/04/19) benazepril (Verified Allergy, Unknown, 09/04/19) nut - unspecified (Verified Allergy, Unknown, 12/14/19) Copy Copies To 1: RUSSELL URBAN DO Discharge Summary Date of Admission Oct 25, 2021 at 17:45 Date of Discharge Oct 29, 2021 at 14:10 Discharge Date: Oct 29, 2021 Discharge Time: 1330 Admission Diagnosis Urinary tract infection Discharge Diagnosis UTI Debility (1) UTI (urinary tract infection) Status: Acute Qualifiers: Qualified Codes: N30.01 - Acute cystitis with hematuria (2) Debility Status: Acute (3) T2DM (type 2 diabetes mellitus) Status: Acute Qualifiers: Qualified Codes: E11.9 - Type 2 diabetes mellitus without complications; Z79.4 - halfway (current) use of insulin (4) Cisplatin induced neuropathy Status: Chronic (5) Constipation Status: Acute DEE DEE LOWRY MD Oct 29, 2021 16:21
== END 2021-10-29 14:10 | DRG 690 ==
LOC: EDUNIT# 10:59 → ER 11:00 → UNDOADMOB 13:10 → 4TH 13:10 → OBSVTOIN 10-25 17:45 → INTOOBSV 10-25 17:45 → 4TH 10-26 10:23 → UNDODISIN 10-29 14:10
PROVIDERS: ADMIT Internal Medicine; ATTEND Internal Medicine
DX: N39.0 Urinary tract infection, site not specified (principal); I10 Essential (primary) hypertension; E11.40 Type 2 diabetes mellitus with diabetic neuropathy, unspecified; B96.1 Klebsiella pneumoniae [K. pneumoniae] as the cause of diseases classified elsewhere; R53.81 Other malaise; T45.1X5A Adverse effect of antineoplastic and immunosuppressive drugs, initial encounter; K59.00 Constipation, unspecified; I49.3 Ventricular premature depolarization; Z86.73 Personal history of transient ischemic attack (TIA), and cerebral infarction without residual deficits; Z79.4 Long term (current) use of insulin; Z85.41 Personal history of malignant neoplasm of cervix uteri; Z92.21 Personal history of antineoplastic chemotherapy; Z92.3 Personal history of irradiation
CPT/HCPCS: 36415; 80053; 81000; 82947; 85025; 86141; 87040; 87077; 87088; 87186; 93005; G0378

== ENCOUNTER 2021-12-12 20:25 | Inpatient (IN) | payer MEDICARE, OTHER ==
[~2021-12-12] VITALS: Ht 165.1 cm; Wt 81.4 kg
[~2021-12-12 20:25] MED LIST changes: +CARV20CP7 PO; +CHOL-34 PO; +CNC1KV IJ; +FLUC50TA22 PO
[2021-12-12] MEDS ORDERED: methylPREDNISolone 125 MG (Solu-MEDROL) VIAL IV STA (20:37)
[2021-12-12 20:56] LABS: BASOPHILS % (AUTO) 0 % (0-10); EOSINOPHILS # (AUTO) 0.1 10^3/uL (0.0-0.3); EOSINOPHILS % (AUTO) 2 % (0-10); HEMATOCRIT 36 % (35-52); HEMOGLOBIN 11.6 g/dL (11.5-16.0); LYMPHOCYTES # (AUTO) 0.8 10^3/uL (1.0-4.0); LYMPHOCYTES % (AUTO) 10 % (12-44); MEAN CORPUSCULAR HEMOGLOBIN 29 pg (25-34); MEAN CORPUSCULAR HGB CONC 33 g/dL (32-36); MEAN CORPUSCULAR VOLUME 88 fL (80-99); MEAN PLATELET VOLUME 8.5 fL (9.0-12.2); MONOCYTES # (AUTO) 0.3 10^3/uL (0.0-1.0); MONOCYTES % (AUTO) 4 % (0-12); NEUTROPHILS # (AUTO) 6.2 10^3/uL (1.8-7.8); NEUTROPHILS % (AUTO) 84 % (42-75); PLATELET COUNT 272 10^3/uL (130-400); WHITE BLOOD COUNT 7.5 10^3/uL (4.3-11.0)
--- NOTE | 2021-12-12 21:01 | ED Respiratory ---
General Chief Complaint: COVID19 Suspect/Confirmed Stated Complaint: CONGESTION Source: patient (LIMITED HISTORIAN), skilled nursing records, old records History of Present Illness Date Seen by Provider: Dec 12, 2021 Time Seen by Provider: 20:30 Initial Comments PT ARRIVES VIA EMS FROM [facility] PT HAS BEEN SICK X 1 WEEK WITH COUGH AND CONGESTION AND SHORTNESS OF BREATH PT STATES COUGH IS PRODUCTIVE--SOMETIMES COLORED, SOMETIMES CLEAR UNKNOWN IF SHE HAS HAD FEVER C/O NAUSEA, NO VOMITING. HAS NOT HAD AN APPETITE ALL WEEK. NO DIARRHEA NO ABDOMINAL PAIN NO URINARY SYMPTOMS NO HEADACHE NO CHEST PAIN PT HAD COUGH SYRUP AND NEB TREATMENTS ORDERED OVER THE LAST WEEK TODAY, JUST PRIOR TO CALLING THE AMBULANCE, LONG TERM CONTACTED DR. OSORIO, AND HE ORDERED ZITHROMAX, PREDNISONE AND INCREASED NEB TREATMENTS. PT WAS RECEIVING A NEB TREATMENT WHEN SHE BECAME MORE SHORT OF BREATH, SO EMS WAS CONTACTED COVID TEST WAS NEGATIVE AT LONG TERM JUST PRIOR TO ARRIVAL O2 SAT 92% ON ROOM AIR FOR EMS. PT NORMALLY DOES NOT REQUIRE OXYGEN. PT HAS HAD COVID VACCINE X 3. PT HAS BEEN DX WITH CERVICAL CANCER IN 2018, AND HAD CHEMO AND RADIATION--NO SURGERY--HAS COMPLETED TREATMENT HX OF UTI'S--ADMITTED IN OCTOBER FOR UTI. WAS LIVING AT HOME AT THAT TIME, WAS TAKING CARE OF HER. . HAS SINCE BEEN PLACED IN LONG TERM. HAS BEEN NON- AMBULATORY FOR SOME TIME DUE TO CHRONIC GENERALIZED WEAKNESS, AND NEUROPATHY PCP: DR. OSORIO Allergies and Home Medications Allergies Coded Allergies: Penicillins (Verified Allergy, Severe, SOA, pt has received Ceftriaxone w/o issue, 09/05/19) ciprofloxacin (Verified Allergy, Severe, BURNING SENSATION, 09/04/19) Sulfa (Sulfonamide Antibiotics) (Verified Allergy, Unknown, 09/04/19) bacitracin (Verified Allergy, Unknown, 09/04/19) benazepril (Verified Allergy, Unknown, 09/04/19) nut - unspecified (Verified Allergy, Unknown, 12/14/19) Patient Home Medication List Home Medication List Reviewed: Yes Ascorbic Acid (Vitamin C) 500 Mg Tablet, 1,500 MG PO DAILY Prescribed by: DEE DEE LOWRY on 10/29/21 1045 Calcium Carbonate/Vitamin D3 (Calcium 500 + Vit D 400 Tablet) 1 Each Tablet, 1 EACH PO DAILY Prescribed by: DEE DEE LOWRY on 6/23/22 1045 Carvedilol Phosphate (Carvedilol ER) 20 Mg Cpmp.24hr, 20 MG PO DAILY Prescribed by: DEE DEE LOWRY on 10/29/211044 Cefdinir (Cefdinir) 300 Mg Capsule, 300 MG PO BID Prescribed by: DEE DEE LOWRY on 10/29/211044 Cholecalciferol (Vitamin D3) (Vitamin D3) 25 Mcg (1000 Unit) Tablet, 25 MCG PO DAILY Prescribed by: DEE DEE LOWRY on 10/29/211044 Cyanocobalamin (Cyanocobalamin Injection) 1,000 Mcg/Ml Inj, 1 ML IJ TUE Prescribed by: DEE DEE LOWRY on 10/29/211044 Fluconazole (Fluconazole) 50 Mg Tablet, 50 MG PO UD PRN for YEAST Prescribed by: DEE DEE LOWRY on 10/29/211044 Insulin Glargine,Hum.rec.anlog (Lantus Solostar) 100 Unit/1 Ml Insuln.pen, 15 UNIT SQ HS Prescribed by: DEE DEE LOWRY on 10/29/211044 Loratadine (Claritin) 10 Mg Capsule, 10 MG PO DAILY Prescribed by: DEE DEE LOWRY on 10/29/211044 Review of Systems Review of Systems Constitutional: see HPI, malaise, weakness EENTM: no symptoms reported Respiratory: cough Cardiovascular: No chest pain Gastrointestinal: see HPI; No abdominal pain, No diarrhea; loss of appetite, nausea; No vomiting Genitourinary: no symptoms reported Musculoskeletal: no symptoms reported Skin: no symptoms reported Psychiatric/Neurological: No Symptoms Reported Hematologic/Lymphatic: No Symptoms Reported Immunological/Allergic: no symptoms reported Past Qczyszv-Mhugat-[place]ovsk Hx Patient Social History Tobacco Use?: No Substance use?: No Alcohol Use?: No Immunizations Up To Date First/Initial COVID19 Vaccinat: 05/13/2020 Second COVID19 Vaccination Yuri: 06/02/2020 Seasonal Allergies Seasonal Allergies: Yes Past Medical History Surgery/Hospitalization HX: INCISIONAL HERNIA REPAIR ( SITE OF PRIOR OPEN CHOLECYSTECTOMY) 2019 CHOLECYSTECTOMY 1975 APPENDECTOMY BLEPHAROPLASTY TONSILLECTOMY Tonsilectomy 1955 Cervical CA at [phone] Surgeries: Yes (BRACHYTHERAPY-CERVIX, eyelid lifted) Abdominal, Appendectomy, Gallbladder, Tonsillectomy Respiratory: Yes (gets SOB with exercise) Cardiac: Yes (RBBB) Hypertension Neurological: Yes (seizures 40+ years ago; CHEMO-INDUCED NEUROPATHY) Neuropathy, Seizure Disorder, Traumatic Brain Injury Reproductive Disorders: Yes (CERVICAL CANCER) 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 NO SURGERY Psychosocial: No Integumentary: Yes (SACRAL DECUBITUS ULCER) Blood Disorders: No Family Medical History Cardiovascular disease 19 FATHER Diabetes mellitus 19 FATHER G8 BROTHER Respiratory disorder 19 MOTHER Physical Exam Vital Signs - First Documented 12/12/21 20:25 Temp 36.7 Pulse 102 Resp 20 B/P (MAP) 189/118 (141) Pulse Ox 95 Capillary Refill : Height: '" Weight: lbs. oz. kg; 25.68 BMI Method: General Appearance: WD/WN, mild distress, other (LETHARGIC, WITH WEAK LOOSE COUGH. MILD TO MODERATE DYSPNEA. ) HEENT: PERRL/EOMI, pharynx normal Neck: normal inspection Respiratory: decreased breath sounds (DECREASED AERATION IN ALL LUNG BAIN), other (SCATTERED RHONCHI BILATERALLY. MILDLY DYSPNEIC. ) Cardiovascular: tachycardia, systolic murmur (4/6), irregularly irregular Gastrointestinal: normal bowel sounds, non tender, soft Extremities: normal inspection, no pedal edema, no calf tenderness, normal capillary refill Neurologic/Psychiatric: automatic screwmaker II-XII nml as tested, no motor/sensory deficits, alert, oriented x 3, other (LETHARGIC. HAS GENERALIZED WEAKNESS, WITH NO FOCAL DEFICITS. ) Skin: warm/dry, pallor; No rash Focused Exam Sepsis Stage: Ruled Out Reason for ruling out sepsis: DOES NOT MEET CRITERIA Possible Source: Pulmonary Lactate Level 12/12/21 20:38: Lactic Acid Level 1.02 Time of Focused Exam: 22:00 Respiratory: Other (STILL WITH FAINT EXPIRATORY WHEEZING, BUT INCREASED AERATION AND RESPIRATIONS LESS LABORED) Cardiovascular: Systolic Murmur (4/6), Irregularly Irregular Capillary Refill: Less Than 3 Seconds Skin: warm/dry, pallor Lactic Acid Level Laboratory Tests Test 12/12/21 20:38 Lactic Acid Level 1.02 MMOL/L (0.50-2.00) Within 3hrs of presentation: Admin fluids, Admin ABX, Blood cultures prior to ABX's, Focus exam, Lactate level Progress/Results/Core Measures Suspected Sepsis SIRS Temperature: Pulse: Respiratory Rate: Laboratory Tests 12/12/21 20:38: White Blood Count 7.5 Blood Pressure / Mean: 12/12/21 20:38: Lactic Acid Level 1.02 Laboratory Tests 12/12/21 20:38: Creatinine 0.67, INR Comment 1.1, Platelet Count 272, Total Bilirubin 0.4 Results/Orders Lab Results Laboratory Tests Test 12/12/21 20:38 12/12/21 21:02 Range/Units White Blood Count 7.5 4.3-11.0 10^3/uL Red Blood Count 4.05 3.80-5.11 10^6/uL Hemoglobin 11.6 11.5-16.0 g/dL Hematocrit 36 35-52 % Mean Corpuscular Volume 88 80-99 fL Mean Corpuscular Hemoglobin 29 25-34 pg Mean Corpuscular Hemoglobin Concent 33 32-36 g/dL Red Cell Distribution Width 13.5 10.0-14.5 % Platelet Count 272 130-400 10^3/uL Mean Platelet Volume 8.5 L 9.0-12.2 fL Immature Granulocyte % (Auto) 0 % Neutrophils (%) (Auto) 84 H 42-75 % Lymphocytes (%) (Auto) 10 L 12-44 % Monocytes (%) (Auto) 4 0-12 % Eosinophils (%) (Auto) 2 0-10 % Basophils (%) (Auto) 0 0-10 % Neutrophils # (Auto) 6.2 1.8-7.8 10^3/uL Lymphocytes # (Auto) 0.8 L 1.0-4.0 10^3/uL Monocytes # (Auto) 0.3 0.0-1.0 10^3/uL Eosinophils # (Auto) 0.1 0.0-0.3 10^3/uL Basophils # (Auto) 0.0 0.0-0.1 10^3/uL Immature Granulocyte # (Auto) 0.0 0.0-0.1 10^3/uL Erythrocyte Sedimentation Rate 73 H 0-30 MM/HR Prothrombin Time 14.3 12.2-14.7 SEC INR Comment 1.1 0.8-1.4 Activated Partial Thromboplast Time 31 24-35 SEC D-Dimer 1.51 H 0.00-0.49 UG/ML Sodium Level 139 135-145 MMOL/L Potassium Level 3.9 3.6-5.0 MMOL/L Chloride Level 102 98-107 MMOL/L Carbon Dioxide Level 25 21-32 MMOL/L Anion Gap 12 5-14 MMOL/L Blood Urea Nitrogen 13 7-18 MG/DL Creatinine 0.67 0.60-1.30 MG/DL Estimat Glomerular Filtration Rate 93 BUN/Creatinine Ratio 19 Glucose Level 223 H 70-105 MG/DL Lactic Acid Level 1.02 0.50-2.00 MMOL/L Calcium Level 8.5 8.5-10.1 MG/DL Corrected Calcium 9.3 8.5-10.1 MG/DL Magnesium Level 1.5 L 1.6-2.4 MG/DL Total Bilirubin 0.4 0.1-1.0 MG/DL Aspartate Amino Transf (AST/SGOT) 17 5-34 U/L Alanine Aminotransferase (ALT/SGPT) 10 0-55 U/L Alkaline Phosphatase 82 40-136 U/L Lactate Dehydrogenase 253 H 125-220 U/L Total Creatine Kinase 62 29-168 U/L Creatine Kinase MB 0.9 <6.6 NG/ML Myoglobin 93.8 H 10.0-92.0 NG/ML Troponin I 0.031 H <0.028 NG/ML C-Reactive Protein High Sensitivity 3.25 H 0.00-0.50 MG/DL B-Type Natriuretic Peptide 267.1 H <100.0 PG/ML Total Protein 6.6 6.4-8.2 GM/DL Albumin 3.0 L 3.2-4.5 GM/DL Procalcitonin 0.06 <0.10 NG/ML Influenza Type A (RT-PCR) Not Detected Not Detecte Influenza Type B (RT-PCR) Not Detected Not Detecte SARS-CoV-2 RNA (RT-PCR) Not Detected Not Detecte Urine Color YELLOW Urine Clarity CLEAR Urine pH 6.0 5-9 Urine Specific [place] >=1.030 1.016-1.022 Urine Protein 2+ H NEGATIVE Urine Glucose (UA) NEGATIVE NEGATIVE Urine Ketones NEGATIVE NEGATIVE Urine Nitrite NEGATIVE NEGATIVE Urine Bilirubin NEGATIVE NEGATIVE Urine Urobilinogen 0.2 < = 1.0 MG/DL Urine Leukocyte Esterase 1+ H NEGATIVE Urine RBC (Auto) 1+ H NEGATIVE Urine RBC 25-50 H /HPF Urine WBC 25-50 H /HPF Urine Squamous Epithelial Cells RARE /HPF Urine Crystals NONE /LPF Urine Bacteria FEW H /HPF Urine Casts PRESENT /LPF Urine Hyaline Casts RARE /LPF Urine Mucus NEGATIVE /LPF Urine Culture Indicated CULTURE PENDING Micro Results Microbiology 12/12/21 Blood Culture - Preliminary, Resulted No growth 12/12/21 Blood Culture - Preliminary, Resulted No growth My Orders Orders - YANG DERAS DO Ed Iv/Invasive Line Start (12/12/21 20:33) Ekg Tracing (12/12/21 20:) O2 (12/12/21 20:33) Monitor-Rhythm Ecg Trace Only (12/12/21 20:33) Chest 1 View, Ap/Pa Only (12/12/21 20:33) Bnp Iván (12/12/21 20:33) Cbc With Automated Diff (12/12/21 20:33) Comprehensive Metabolic Panel (12/12/21 20:33) Creatine Kinase (12/12/21 20:33) Creatine Kinase Mb (12/12/21 20:33) Hs C Reactive Protein (12/12/21 20:33) Fibrin Degradation Products (12/12/21 20:33) Lactic Acid Analyzer (12/12/21 20:33) Magnesium (12/12/21 20:33) Procalcitonin (Pct) (12/12/21 20:33) Protime With Inr (12/12/21 20:33) Partial Thromboplastin Time (12/12/21 20:33) Ua Culture If Indicated (12/12/21 20:33) Blood Culture (12/12/21 20:33) Erythrocyte Sedimentation Rate (12/12/21 20:33) Myoglobin Serum (12/12/21 20:33) Troponin I Iván (12/12/21 20:33) LDH (12/12/21 20:33) Covid 19 Inhouse Test (12/12/21 20:33) Sputum Culture (12/12/21 20:33) Urine Culture (12/12/21 20:33) Ed Iv/Invasive Line Start (12/12/21 20:33) Vital Signs Adult Sepsis Patie Q15M (12/12/21 20:33) O2 (12/12/21 20:33) Remove Rings In Anticipation O (12/12/21 20:33) Influenza A And B By Pcr (12/12/21 20:33) Isolation Central Supply Req (12/12/21 20:33) Straight Cath For Spec.-Adult (12/12/21 20:37) Methylprednisolone Sod Succ (Solu-Medrol (12/12/21 20:37) Albuterol Pre-Mix Nebs (Rt) (Proventil (12/12/21 21:19) Ipratropium 0.02% Neb Solution (Atrovent (12/12/21 21:30) Albuterol/Ipra Inhalation Soln (Duoneb I (12/12/21 21:30) Dexamethasone Injection (Decadron Injec (12/12/21 21:30) Rt Request For Service (12/12/21 21:19) Svn Small Volume Nebulizer (12/12/21 21:19) Svn Small Volume Nebulizer (12/12/21 21:19) Svn Small Volume Nebulizer (12/12/21 21:19) Cefepime Injection (Maxipime Injection) (12/12/21 21:30) Magnesium 1 Gm/100 Ml Ivpb (Magnesium Zaidi (12/12/21 21:30) Ct Angio Chest W (12/12/21 21:42) Iohexol Injection (Omnipaque 350 Mg/Ml 1 (12/12/21 22:15) Received Contrast (Hold Metformin- Contr (12/12/21 22:15) Ns (Ivpb) (Sodium Chloride 0.9% Ivpb Bag (12/12/21 22:15) Medications Given in ED Vital Signs/I&O 12/12/21 12/12/21 12/12/21 12/12/21 20:25 20:25 20:25 22:20 Temp 36.7 Pulse 102 Resp 20 B/P (MAP) 189/118 (141) Pulse Ox 95 94 O2 Delivery Nasal Cannula Nasal Cannula Nasal Cannula Nasal Cannula O2 Flow Rate 2.50 2.50 2.50 2.00 12/13/21 00:00 Intake Total 50 ml Balance 50 ml Capillary Refill : Progress Note : Progress Note PLACED IN ISOLATION ROOM PPE WORN AT ALL TIMES COVID AND FLU TESTING DONE SEPSIS PROTOCOL INITIATED. NO DETERIORATION IN PT'S CONDITION DURING ER STAY O2 SATS REMAIN IN MID TO UPPER 90'S ON O2 AT 2L/NC PT HAS HAD FREQUENT PAC'S AND SHORT 3-4 BEAT RUNS OF VENTRICULAR BEATS HR DOWN AND NO LONGER HAVING VENTRICULAR ARRHYTHMIAS, BUT HAVING FREQUENT PAC'S. ECG Initial ECG Impression Date: Dec 12, 2021 Initial ECG Impression Time: 21:20 Initial ECG Rate: 114 Comment UNDERLYING SINUS RHYTHM WITH FREQUENT, 3-4 BEAT RUNS OF VENTRICULAR BEATS. RBBB Diagnostic Imaging Comments CXR--PER RADIOLOGIST REPORT AT 2140 INDINGS: Single frontal radiographic view of the chest was obtained and demonstrates interval development of mild to moderate enlargement of the cardiac silhouette. Pulmonary vasculature is within normal limits. Lungs are clear. There is no large effusion or pneumothorax. Osseous structures show no gross acute abnormalities. IMPRESSION: 1. Interval development of mild to moderate enlargement of the cardiac silhouette. Findings could be on the basis of cardiomegaly. Pericardial effusion may have a similar appearance. 2. No evidence of failure or focal infiltrate. CT ANGIOGRAM CHEST--PER RADIOLOGIST REPORT AT 2233 FINDINGS: No abnormal intraluminal filling defect is seen within the pulmonary arteries to the 1st subsegmental division. Thoracic aorta is suboptimally opacified, but by NASCET criteria, there is no focal significant stenosis. Moderate scattered calcified and noncalcified atherosclerosis is noted. There is no aneurysm of the thoracic aorta. Assessment for dissection is suboptimal given poor opacification of the thoracic aorta. Heart is mildly enlarged. There is no large pericardial effusion. Mildly enlarged AP window lymph node measures 1.1 x 1.7 cm. No abnormal hilar or axillary adenopathy is seen. Evaluation of lung bain demonstrates small bilateral pleural effusions and associated atelectasis. There is no pneumothorax. There is otherwise moderate image degradation of the lung bain due to motion artifact. Pulmonary nodule may be obscured. Note is made of moderate bronchial wall thickening. Osseous structures show age-related degenerative changes. No lytic or blastic bony lesions are seen. Included portions of the upper abdomen show bilateral renal calculi. There is reflux of contrast into the IVC and hepatic veins. IMPRESSION: 1. No acute pulmonary embolus. 2. Mild cardiomegaly with reflux of contrast into the IVC and hepatic veins. Findings are consistent with elevated right heart pressures. 3. Small bilateral pleural effusions with associated atelectasis. 4. Bilateral renal calculi. 5. Moderate bronchial wall thickening. Please correlate for bronchitis. Reviewed: Reviewed by Me Departure Communication (Admissions) 2237--SPOKE WITH DR. LOWRY, HOSPITALIST, ACCEPTS PT FOR ADMIT 2242--SPOKE WITH , UNIVERSITY CONTROLLER, FOR CONSULT. Impression Primary Impression: DYSPNEA WITH MILD HYPOXIA Additional Impressions: Bronchitis UTI (urinary tract infection) Arrhythmia SLIGHTLY ELEVATED TROPONIN Hypomagnesemia Decubitus ulcer of sacral area Mild congestive heart failure Cisplatin induced neuropathy IDDM (insulin dependent diabetes mellitus) Hx of cervical cancer HTN (hypertension) GENERALIZED WEAKNESS AND DEBILITY Nonsustained ventricular tachycardia Disposition: ADMITTED INPATIENT Condition: Improved Admissions Decision to Admit Reason: Admit from ER (General) Decision to Admit/Date: Dec 12, 2021 Time/Decision to Admit Time: 22:40 Departure-Patient Inst. Referrals: RUSSELL OSORIO DO (PCP) Primary Care Physician OBINNA OSORIO DNP (Family) Primary Care Physician YANG DERAS DO Dec 12, 2021 21:01
[2021-12-12 21:10] LABS: BILIRUBIN,URINE NEGATIVE (NEGATIVE); CLARITY,URINE CLEAR; COLOR,URINE YELLOW; GLUCOSE, URINE (UA) NEGATIVE (NEGATIVE); KETONES,URINE NEGATIVE (NEGATIVE); LEUKOCYTE ESTERASE ,URINE 1+ (NEGATIVE); NITRITE,URINE NEGATIVE (NEGATIVE); PROTEIN,URINE 2+ (NEGATIVE)
[2021-12-12 21:12] LABS: POTASSIUM 3.9 MMOL/L (3.6-5.0)
[2021-12-12 21:14] LABS: CALCIUM 8.5 MG/DL (8.5-10.1)
[2021-12-12 21:15] LABS: TOTAL PROTEIN 6.6 GM/DL (6.4-8.2)
[2021-12-12 21:16] LABS: FIBRIN DEGRADATION PRODUCTS 1.51 UG/ML (0.00-0.49); INR 1.1 (0.8-1.4); PROTHROMBIN TIME PATIENT 14.3 SEC (12.2-14.7)
[2021-12-12 21:17] LABS: BILIRUBIN,TOTAL 0.4 MG/DL (0.1-1.0)
[2021-12-12 21:18] LABS: CREATININE SERUM 0.67 MG/DL (0.60-1.30)
[2021-12-12] MEDS ORDERED: RT-ALBUTEROL SULF 2.5 MG/3 ML PRE-MIX VIAL INH STA (21:19)
[2021-12-12 21:21] LABS: MAGNESIUM 1.5 MG/DL (1.6-2.4)
--- NOTE | 2021-12-12 21:27 | Diagnostic Imaging Report ---
INDICATION: Cough/congestion. COMPARISON: 10/02/2019. FINDINGS: Single frontal radiographic view of the chest was obtained and demonstrates interval development of mild to moderate enlargement of the cardiac silhouette. Pulmonary vasculature is within normal limits. Lungs are clear. There is no large effusion or pneumothorax. Osseous structures show no gross acute abnormalities. IMPRESSION: 1. Interval development of mild to moderate enlargement of the cardiac silhouette. Findings could be on the basis of cardiomegaly. Pericardial effusion may have a similar appearance. 2. No evidence of failure or focal infiltrate. Dictated by: Dictated on workstation # [id number]
[2021-12-12 21:30] LABS: CREATINE KINASE MB 0.9 NG/ML (<6.6)
[2021-12-12] MEDS ORDERED: RT-IPRATROPIUM (ATROVENT) 0.5MG/2.5ML AMP IH ONE (21:30)
[2021-12-12] MEDS ORDERED: CEFEPIME INJECTION 1,000 MG in NS (IVPB) 50 ML IV ONE (21:30)
[2021-12-12] MEDS ORDERED: MAGNESIUM 1 GM/100 ML IVPB 100 ML IV ONE (21:30)
[2021-12-12] MEDS ORDERED: RT-ALBUTEROL/IPRATROPIUM 3 ML (DUONEB) VIAL INH ONE (21:30)
[2021-12-12 21:32] LABS: ERYTHROCYTE SEDIMENTATION RATE 73 MM/HR (0-30)
[2021-12-12 21:37] LABS: BACTERIA,URINE FEW /HPF; HYALINE CASTS, URINE RARE /LPF; RBC,URINE 25-50 /HPF; SQUAMOUS EPITHELIAL CELL,UR RARE /HPF; WBC,URINE 25-50 /HPF
[2021-12-12] MEDS ORDERED: HOLD METFORMIN - RECEIVED CONTRAST 20 ML VIAL IV SCH (22:15)
[2021-12-12] MEDS ORDERED: NS 100 ML (IVPB) BAG IV ONE (22:15)
[2021-12-12] MEDS ORDERED: IOHEXOL 350 MG/ML 100 ML (OMNIPAQUE 350) VIAL IV ONE (22:15)
--- NOTE | 2021-12-12 22:30 | Diagnostic Imaging Report ---
PROCEDURE: CT angiography of the chest with contrast. TECHNIQUE: Multiple contiguous axial images were obtained through the chest after uneventful bolus administration of intravenous contrast. 3D reconstructed CTA MIP acquisitions were also performed. Auto Exposure Controls were utilized during the CT exam to meet ALARA standards for radiation dose reduction. INDICATION: Congestion. COMPARISON: Chest radiograph from earlier the same day and previous angiogram dated 07/23/2019. FINDINGS: No abnormal intraluminal filling defect is seen within the pulmonary arteries to the 1st subsegmental division. Thoracic aorta is suboptimally opacified, but by NASCET criteria, there is no focal significant stenosis. Moderate scattered calcified and noncalcified atherosclerosis is noted. There is no aneurysm of the thoracic aorta. Assessment for dissection is suboptimal given poor opacification of the thoracic aorta. Heart is mildly enlarged. There is no large pericardial effusion. Mildly enlarged AP window lymph node measures 1.1 x 1.7 cm. No abnormal hilar or axillary adenopathy is seen. Evaluation of lung gao demonstrates small bilateral pleural effusions and associated atelectasis. There is no pneumothorax. There is otherwise moderate image degradation of the lung gao due to motion artifact. Pulmonary nodule may be obscured. Note is made of moderate bronchial wall thickening. Osseous structures show age-related degenerative changes. No lytic or blastic bony lesions are seen. Included portions of the upper abdomen show bilateral renal calculi. There is reflux of contrast into the IVC and hepatic veins. IMPRESSION: 1. No acute pulmonary embolus. 2. Mild cardiomegaly with reflux of contrast into the IVC and hepatic veins. Findings are consistent with elevated right heart pressures. 3. Small bilateral pleural effusions with associated atelectasis. 4. Bilateral renal calculi. 5. Moderate bronchial wall thickening. Please correlate for bronchitis. Dictated by: Dictated on workstation # [id number]
[2021-12-12] MEDS ORDERED: FUROSEMIDE 40 MG/4 ML INJ (LASIX) IVP ONE (22:45)
[2021-12-12] MEDS ORDERED: ENOXAPARIN 80 MG/0.8 ML (LOVENOX) SYR SC ONE (22:45)
[2021-12-13] VITALS (19 sets, daily range): BP systolic 101–189; BP diastolic 49–118
[2021-12-13] MEDS ORDERED: ACETAMINOPHEN 500 MG TAB (TYLENOL) PO PRN (00:30)
[2021-12-13] MEDS ORDERED: NITROGLYCERIN 0.4 MG SL TABS BTL 25'S SL PRN (00:30)
[2021-12-13] MEDS ORDERED: morphine INJ 4 MG/ML 1 ML (VIAL/SYRINGE) IV PRN (00:30)
[2021-12-13] MEDS ORDERED: ONDANSETRON 4 MG/2 ML (SDV) Z0FRAN IVP PRN (00:30)
[2021-12-13] MEDS ORDERED: EPINEPHrine 1 MG INJECTION 4 MG in NS (IVPB) 248 ML IV SCH (00:45)
[2021-12-13] MEDS ORDERED: RT-ALBUTEROL SULF 2.5 MG/3 ML PRE-MIX VIAL INH PRN (01:00)
[2021-12-13] MEDS: VASOPRESSIN INJECTION 20 UNIT in NS (IVPB) 100 ML IV SCH ×3 (01:17→22:48)
[2021-12-13] MEDS: NOREPINEPHRINE 8 MG/250 ML 250 ML IV SCH ×2 (01:18→19:15)
[2021-12-13] MEDS: NS IV 1000 ML 1,000 ML IV SCH ×3 (01:33→20:07)
[2021-12-13] MEDS: RT-ALBUTEROL SULF 2.5 MG/3 ML PRE-MIX VIAL INH SCH ×4 (02:16→22:04)
[2021-12-13 04:10] LABS: TRIGLYCERIDES 54 MG/DL (<150); VLDL CHOLESTEROL 11 MG/DL (5-40)
[2021-12-13 04:15] LABS: CHOLESTEROL 135 MG/DL (< 200); HDL CHOLESTEROL 39 MG/DL (40-60)
[2021-12-13] MEDS: CEFEPIME INJECTION 1,000 MG in NS (IVPB) 50 ML IV SCH ×4 (04:24→22:47)
[2021-12-13] MEDS: inSUlin ASPART (NovoLOG) 1 UNIT/0.01 ML (CHARGE PER UNIT) SC SCH ×4 (05:59→20:07)
[2021-12-13] MEDS ORDERED: FUROSEMIDE 40 MG/4 ML INJ (LASIX) IV ONE (06:00)
[2021-12-13] MEDS ORDERED: methylPREDNISolone 125 MG (Solu-MEDROL) VIAL IV ONE (06:00)
[2021-12-13 07:26] LABS: BASOPHILS % (AUTO) 0 % (0-10); EOSINOPHILS % (AUTO) 0 % (0-10); HEMATOCRIT 33 % (35-52); HEMOGLOBIN 10.7 g/dL (11.5-16.0); LYMPHOCYTES # (AUTO) 0.5 10^3/uL (1.0-4.0); LYMPHOCYTES % (AUTO) 11 % (12-44); MEAN CORPUSCULAR HEMOGLOBIN 29 pg (25-34); MEAN CORPUSCULAR HGB CONC 33 g/dL (32-36); MEAN CORPUSCULAR VOLUME 89 fL (80-99); MEAN PLATELET VOLUME 8.6 fL (9.0-12.2); MONOCYTES # (AUTO) 0.1 10^3/uL (0.0-1.0); MONOCYTES % (AUTO) 1 % (0-12); NEUTROPHILS # (AUTO) 4.2 10^3/uL (1.8-7.8); NEUTROPHILS % (AUTO) 88 % (42-75); PLATELET COUNT 227 10^3/uL (130-400); WHITE BLOOD COUNT 4.7 10^3/uL (4.3-11.0)
[2021-12-13 07:47] LABS: CALCIUM 8.9 MG/DL (8.5-10.1); CREATININE SERUM 0.8 MG/DL (0.60-1.30); POTASSIUM 3.7 MMOL/L (3.6-5.0)
[2021-12-13 08:09] LABS: EOSINOPHILS % (MANUAL) 1 %; LYMPHOCYTES % (MANUAL) 6 %; MONOCYTES % (MANUAL) 3 %; NEUTROPHILS % (MANUAL) 90 %; POIKILOCYTOSIS SLIGHT; SPHEROCYTES SLIGHT
--- NOTE | 2021-12-13 08:50 | Consultation-Cardiology ---
HPI-Cardiology Cardiology Consultation: Date of Consultation 12/13/21 Date of Admission 12/12/21 Attending Physician Jaren Urban DO Admitting Physician Admitting Physician: Dee Dee Lowry MD Attending Physician: Jaren Urban DO Consulting Physician DARRON ROBBINS JR, MD HPI: Time Seen by a Provider: 08:45 Chief Complaint: REASON FOR CONSULTATION: Possible non-ST elevation myocardial infarction. I had the pleasure of seeing Kemal in the intensive care unit at [facility] in [place], [place] today. She has no known history of coronary artery disease but has cardiac risk factors of hypertension and type 2 diabetes mellitus. She has been in [facility] since October due to her peripheral neuropathy. This was felt to have been caused by chemotherapy she received for cervical cancer in 2019. Over the past year she has developed increasing bilateral lower extremity weakness and foot drop to the point that she is not able to walk. She has been doing physical therapy at the inpatient rehab. For about the past 8 days she has had some intermittent shortness of breath as well as a cough. Yesterday the cough and shortness of breath became worse and she was brought to the hospital for further evaluation. Her who is at the bedside in the ICU was with her at the time and said after 1 coughing spell, she was quite lightheaded and almost appeared to have passed out but did not quite lose consciousness. Today her breathing is improving but not quite back to her baseline. She still has a cough productive of some whitish sputum. She denies fever or chills. She denies chest pain, paroxysmal nocturnal dyspnea, or orthopnea. She has had some slight palpitations in the past but nothing prolo nged. She has had lightheaded spells but no syncope except for possibly what happened yesterday. She has had occasional mild bilateral lower extremity edema. While she was being evaluated in the emergency room, she was noted to have a significant amount of atrial and ventricular ectopy on the service observer and troponin levels were measured which were elevated. Because of this, a cardiology consultation was requested. Certain portions of this document may have been dictated utilizing voice recognition technology. Inherent to this technology, typographical and grammatical errors may exist. As much as I am diligent to identify and correct these mistakes, some errors may remain in the document. Review of Systems-Cardiology Review of Systems Other comments Review of 10 organ systems is as per the history of present illness, otherwise n egative. PHX-[id number]-Ruqxfd Hx Patient Social History Marrital Status: Smoking Status: Never a Smoker 2nd Hand Smoke Exposure: No Have you traveled recently?: No Alcohol Use?: No Pt feels they are or have been: No Past Medical History PMH As described under Assessment. Family Medical History Family Medical History: Her father had a myocardial infarction in his 70s but lived to be in his 90s. Family History: Cardiovascular disease 19 FATHER Diabetes mellitus 19 FATHER G8 BROTHER Respiratory disorder 19 MOTHER Allergies and Home Medications Allergies Coded Allergies: Penicillins (Verified Allergy, Severe, SOA, pt has received Ceftriaxone w/o issue, 09/05/19) ciprofloxacin (Verified Allergy, Severe, BURNING SENSATION, 09/04/19) Sulfa (Sulfonamide Antibiotics) (Verified Allergy, Unknown, 09/04/19) bacitracin (Verified Allergy, Unknown, 09/04/19) benazepril (Verified Allergy, Unknown, 09/04/19) nut - unspecified (Verified Allergy, Unknown, 12/14/19) Patient Home Medication List Home Medication List Reviewed: Yes Ascorbic Acid (Vitamin C) 500 Mg Tablet, 1,500 MG PO DAILY Prescribed by: DEE DEE LOWRY on 10/29/21 104 Calcium Carbonate/Vitamin D3 (Calcium 500 + Vit D 400 Tablet) 1 Each Tablet, 1 EACH PO DAILY Prescribed by: DEE DEE LOWRY on 10/29/211044 Carvedilol Phosphate (Carvedilol ER) 20 Mg Cpmp.24hr, 20 MG PO DAILY Prescribed by: DEE DEE LOWRY on 10/29/21 104 Cefdinir (Cefdinir) 300 Mg Capsule, 300 MG PO BID Prescribed by: DEE DEE LOWRY on 10/29/21 104 Cholecalciferol (Vitamin D3) (Vitamin D3) 25 Mcg (1000 Unit) Tablet, 25 MCG PO DAILY Prescribed by: DEE DEE LOWRY on 10/29/21 104 Cyanocobalamin (Cyanocobalamin Injection) 1,000 Mcg/Ml Inj, 1 ML IJ TUE Prescribed by: DEE DEE LOWRY on 10/29/21 104 Fluconazole (Fluconazole) 50 Mg Tablet, 50 MG PO UD PRN for YEAST Prescribed by: DEE DEE LOWRY on 10/29/21 104 Insulin Glargine,Hum.rec.anlog (Lantus Solostar) 100 Unit/1 Ml Insuln.pen, 15 UNIT SQ HS Prescribed by: DEE DEE LOWRY on 10/29/21 104 Loratadine (Claritin) 10 Mg Capsule, 10 MG PO DAILY Prescribed by: DEE DEE LOWRY on 10/29/21 1045 Exam Vital Signs Vital Signs Date Time Temp Pulse Resp B/P (MAP) Pulse Ox O2 Delivery O2 Flow Rate FiO2 12/13/21 07:20 95 Nasal Cannula 2.00 12/13/21 07:00 82 12/13/21 06:00 16 114/65 (81) 12/13/21 04:00 36.3 12/13/21 00:37 30 Physical Exam General: Alert. No acute distress. Well nourished and appears stated age. Eye: Extraocular movements are intact. Conjunctivae are clear. There are no xanthelasma. HENT: Normocephalic. Atraumatic. Carotid pulsations 2/2 without bruits. Neck: Jugular venous pressure does not appear elevated. No thyromegaly appreciated. Respiratory: Lungs have diffuse wheezes. Respirations are non-labored. Breath sounds are equal. Symmetrical chest wall expansion. Cardiovascular: Normal rate. Regular rhythm. No murmur. No gallop. Point of maximal impulse is not appear displaced. Good pulses equal in all extremities. Trace bilateral pretibial edema. Gastrointestinal: Soft. Normal bowel sounds. Skin: Skin turgor is normal. There is no pallor. Musculoskeletal: No kyphosis or scoliosis appreciated. Bilateral foot drop. Neurologic: Alert and oriented to person, place, time. Cranial nerves 3-12 appear grossly intact. The patient has good motor tone strength in the upper extremities bilaterally but profound weakness in both lower extremities. Psychiatric: Cooperative. Appropriate mood & affect. Labs Laboratory Tests Test 12/12/21 20:38 12/12/21 21:02 12/13/21 00:50 12/13/21 03:21 Range/Units White Blood Count 7.5 4.3-11.0 10^3/uL Red Blood Count 4.05 3.80-5.11 10^6/uL Hemoglobin 11.6 11.5-16.0 g/dL Hematocrit 36 35-52 % Mean Corpuscular Volume 88 80-99 fL Mean Corpuscular Hemoglobin 29 25-34 pg Mean Corpuscular Hemoglobin Concent 33 32-36 g/dL Red Cell Distribution Width 13.5 10.0-14.5 % Platelet Count 272 130-400 10^3/uL Mean Platelet Volume 8.5 L 9.0-12.2 fL Immature Granulocyte % (Auto) 0 % Neutrophils (%) (Auto) 84 H 42-75 % Lymphocytes (%) (Auto) 10 L 12-44 % Monocytes (%) (Auto) 4 0-12 % Eosinophils (%) (Auto) 2 0-10 % Basophils (%) (Auto) 0 0-10 % Neutrophils # (Auto) 6.2 1.8-7.8 10^3/uL Lymphocytes # (Auto) 0.8 L 1.0-4.0 10^3/uL Monocytes # (Auto) 0.3 0.0-1.0 10^3/uL Eosinophils # (Auto) 0.1 0.0-0.3 10^3/uL Basophils # (Auto) 0.0 0.0-0.1 10^3/uL Immature Granulocyte # (Auto) 0.0 0.0-0.1 10^3/uL Erythrocyte Sedimentation Rate 73 H 0-30 MM/HR Prothrombin Time 14.3 12.2-14.7 SEC INR Comment 1.1 0.8-1.4 Activated Partial Thromboplast Time 31 24-35 SEC D-Dimer 1.51 H 0.00-0.49 UG/ML Sodium Level 139 135-145 MMOL/L Potassium Level 3.9 3.6-5.0 MMOL/L Chloride Level 102 98-107 MMOL/L Carbon Dioxide Level 25 21-32 MMOL/L Anion Gap 12 5-14 MMOL/L Blood Urea Nitrogen 13 7-18 MG/DL Creatinine 0.67 0.60-1.30 MG/DL Estimat Glomerular Filtration Rate 93 BUN/Creatinine Ratio 19 Glucose Level 223 H 70-105 MG/DL Lactic Acid Level 1.02 0.50-2.00 MMOL/L Calcium Level 8.5 8.5-10.1 MG/DL Corrected Calcium 9.3 8.5-10.1 MG/DL Magnesium Level 1.5 L 1.6-2.4 MG/DL Total Bilirubin 0.4 0.1-1.0 MG/DL Aspartate Amino Transf (AST/SGOT) 17 5-34 U/L Alanine Aminotransferase (ALT/SGPT) 10 0-55 U/L Alkaline Phosphatase 82 40-136 U/L Lactate Dehydrogenase 253 H 125-220 U/L Total Creatine Kinase 62 29-168 U/L Creatine Kinase MB 0.9 <6.6 NG/ML Myoglobin 93.8 H 10.0-92.0 NG/ML Troponin I 0.031 H 0.608 *H 0.729 *H <0.028 NG/ML C-Reactive Protein High Sensitivity 3.25 H 0.00-0.50 MG/DL B-Type Natriuretic Peptide 267.1 H <100.0 PG/ML Total Protein 6.6 6.4-8.2 GM/DL Albumin 3.0 L 3.2-4.5 GM/DL Procalcitonin 0.06 <0.10 NG/ML Influenza Type A (RT-PCR) Not Detected Not Detecte Influenza Type B (RT-PCR) Not Detected Not Detecte SARS-CoV-2 RNA (RT-PCR) Not Detected Not Detecte Urine Color YELLOW Urine Clarity CLEAR Urine pH 6.0 5-9 Urine Specific [place] >=1.030 1.016-1.022 Urine Protein 2+ H NEGATIVE Urine Glucose (UA) NEGATIVE NEGATIVE Urine Ketones NEGATIVE NEGATIVE Urine Nitrite NEGATIVE NEGATIVE Urine Bilirubin NEGATIVE NEGATIVE Urine Urobilinogen 0.2 < = 1.0 MG/DL Urine Leukocyte Esterase 1+ H NEGATIVE Urine RBC (Auto) 1+ H NEGATIVE Urine RBC 25-50 H /HPF Urine WBC 25-50 H /HPF Urine Squamous Epithelial Cells RARE /HPF Urine Crystals NONE /LPF Urine Bacteria FEW H /HPF Urine Casts PRESENT /LPF Urine Hyaline Casts RARE /LPF Urine Mucus NEGATIVE /LPF Urine Culture Indicated CULTURE PENDING Triglycerides Level 54 <150 MG/DL Cholesterol Level 135 < 200 MG/DL LDL Cholesterol Direct 87 1-129 MG/DL VLDL Cholesterol 11 5-40 MG/DL HDL Cholesterol 39 L 40-60 MG/DL Beta-Hydroxybutyrate (Chem panel) 1.49 H 0.00-0.27 MMOL/L Test 12/13/21 05:36 12/13/21 07:19 Range/Units Glucometer 204 H 70-110 MG/DL White Blood Count 4.7 4.3-11.0 10^3/uL Red Blood Count 3.66 L 3.80-5.11 10^6/uL Hemoglobin 10.7 L 11.5-16.0 g/dL Hematocrit 33 L 35-52 % Mean Corpuscular Volume 89 80-99 fL Mean Corpuscular Hemoglobin 29 25-34 pg Mean Corpuscular Hemoglobin Concent 33 32-36 g/dL Red Cell Distribution Width 13.6 10.0-14.5 % Platelet Count 227 130-400 10^3/uL Mean Platelet Volume 8.6 L 9.0-12.2 fL Immature Granulocyte % (Auto) 0 % Neutrophils (%) (Auto) 88 H 42-75 % Lymphocytes (%) (Auto) 11 L 12-44 % Monocytes (%) (Auto) 1 0-12 % Eosinophils (%) (Auto) 0 0-10 % Basophils (%) (Auto) 0 0-10 % Neutrophils # (Auto) 4.2 1.8-7.8 10^3/uL Lymphocytes # (Auto) 0.5 L 1.0-4.0 10^3/uL Monocytes # (Auto) 0.1 0.0-1.0 10^3/uL Eosinophils # (Auto) 0.0 0.0-0.3 10^3/uL Basophils # (Auto) 0.0 0.0-0.1 10^3/uL Immature Granulocyte # (Auto) 0.0 0.0-0.1 10^3/uL Neutrophils % (Manual) 90 % Lymphocytes % (Manual) 6 % Monocytes % (Manual) 3 % Eosinophils % (Manual) 1 % Poikilocytosis SLIGHT Spherocytes SLIGHT Sodium Level 142 135-145 MMOL/L Potassium Level 3.7 3.6-5.0 MMOL/L Chloride Level 103 98-107 MMOL/L Carbon Dioxide Level 26 21-32 MMOL/L Anion Gap 13 5-14 MMOL/L Blood Urea Nitrogen 15 7-18 MG/DL Creatinine 0.80 0.60-1.30 MG/DL Estimat Glomerular Filtration Rate 78 BUN/Creatinine Ratio 19 Glucose Level 213 H 70-105 MG/DL Calcium Level 8.9 8.5-10.1 MG/DL Thyroid Stimulating Hormone (TSH) 0.61 0.35-4.94 UIU/ML ECG Impression ECG Comment Electrocardiogram from last evening in the emergency room showed sinus tachycardia at a heart rate of 114 bpm with frequent premature supraventricular and premature ventricular complexes, a ventricular triplet (nonsustained ventricular tachycardia) as well as left anterior hemiblock and right bundle branch block. Electrocardiogram from this morning shows sinus rhythm with sinus arrhythmia, probable limb lead reversal and right bundle branch block. Neither electrocardiogram shows any significant ST changes. Diagnosis/Problems Diagnosis/Problems (1) Troponin level elevated Assessment & Plan: She may be suffering a non-ST elevation myocardial infarction versus having a type II non-ST elevation myocardial infarction due to supply/demand mismatch from a pulmonary infection. She has been started on aspirin and therapeutic dosing of enoxaparin. I will add low-dose beta-andry and intensive dose statin medication. We may need to consider further evaluation with a cardiac catheterization. I will have her undergo an echocardiogram this morning to assess her left ventricular function. I have also recommended an abdominal/pelvic CT scan to assess whether or not her cervical cancer seems to be remaining in remission. If she were to have recurrent cervical cancer, then she may not be an ideal candidate for cardiac catheterization. I have discussed the benefits and risks of cardiac catheterization with the patient and her and both are in agreement to proceed if we find that to be recommended. (2) Ventricular tachycardia Assessment & Plan: She was also having some nonsustained ventricular tachycardia in the emergency room. This is certainly concerning in light of the possible non-ST elevation myocardial infarction. I will start low-dose beta- andry and attempt to titrate her up to the dose she was taking at home as tolerated by her blood pressure. (3) Primary hypertension Assessment & Plan: I will restart low-dose beta-andry. (4) Mixed hyperlipidemia Assessment & Plan: In light of the possible non-ST elevation myocardial infarction, I recommend intensive dose statin medication. (5) Type 2 diabetes mellitus with complication Assessment & Plan: This is being managed by the hospitalist. (6) History of cervical cancer Assessment & Plan: As above, I will have her undergo a CT scan of the abdomen and pelvis just to be sure she does not have a recurrence of her cervical cancer . She does not believe that she has had a CT scan of the abdomen and pelvis since 2019. DARRON ROBBINS JR, MD Dec 13, 2021 08:50
[2021-12-13] MEDS: ASPIRIN E.C. 81 MG (ECOTRIN) TAB PO SCH (09:07)
[2021-12-13] MEDS: ENOXAPARIN 80 MG/0.8 ML (LOVENOX) SYR SC SCH ×2 (09:07→20:07)
[2021-12-13] MEDS ORDERED: NS 100 ML (IVPB) BAG IV ONE (10:45)
[2021-12-13] MEDS ORDERED: HOLD METFORMIN - RECEIVED CONTRAST 20 ML VIAL IV SCH (10:45)
[2021-12-13] MEDS ORDERED: IOHEXOL 350 MG/ML 100 ML (OMNIPAQUE 350) VIAL IV ONE (10:45)
--- NOTE | 2021-12-13 11:16 | Diagnostic Imaging Report ---
CT ABDOMEN/PELVIS W TECHNIQUE: Multiple contiguous axial images were obtained through the abdomen and pelvis after administration of intravenous contrast. All CT scans use one or more of the following dose optimizing techniques: automated exposure control, MA and/or KvP adjustment based on patient size and exam type or iterative reconstruction. INDICATION: Cervical cancer. Frequent urination. COMPARISON: CT abdomen and pelvis of 11/11/2019 FINDINGS: Lower chest: Patchy groundglass and centrilobular nodules in the lung bases may be due to aspiration or infection. Trace right pleural effusion. Peritoneum: No free intraperitoneal air or fluid. Liver and biliary system: The liver is normal. Gallbladder is likely surgically absent. No intrahepatic biliary ductal dilatation. Spleen and Pancreas: Spleen is normal. The pancreas enhances normally without mass lesion or peripancreatic inflammatory changes. Adrenals: Normal. tract: The left kidney demonstrates multifocal irregular cortical enhancement, likely due to areas of cortical scar. There is a large 2 cm stone in the left renal pelvis without hydronephrosis. There are also nonobstructing right-sided renal stones. The urinary bladder is normally filled with contrast material and there is no wall thickening. The uterus is unremarkable. No adnexal mass. GI tract: Stomach is decompressed. No bowel obstruction. No pericolonic inflammatory changes. The appendix is not seen, but there are no secondary features of acute appendicitis. Vasculature and Lymph nodes: Normal caliber aorta has no dissection and moderate atherosclerotic plaquing. No abdominal or pelvic lymphadenopathy. Musculoskeletal: No concerning osseous lesion. Mild body wall edema. An air-filled cleft is present in the subcutaneous tissues overlying the sacrum, likely due to decubitus ulcer. No features of underlying osteomyelitis. IMPRESSION: 1. No features of metastatic disease or local recurrence of cervical cancer. 2. Decubitus ulcer without features of osteomyelitis in the sacrum or coccyx. 3. Large left renal calculi do not result in obstruction. 4. Diffuse body wall edema. 4. Centrilobular opacities in the lung bases may be due to aspiration or infection. Dictated by: Dictated on workstation # [id number]
[2021-12-13] MEDS ORDERED: CLOPIDOGREL 300 MG (PLAVIX) TABLET PO ONE (15:15)
--- NOTE | 2021-12-13 18:53 | History & Physical-Hospitalist ---
History of Present Illness HPI/Chief Complaint Kemal Mireles is a 71 year old female with PMH HTN, T2DM on insulin, history of cervical cancer, chemotherapy associated neuropathy, who presented with upper respiratory symptoms. She has been feeling sick for the past 9 days. She reports congestion and cough. She has some shortness of breath. She denies fevers. She denies chest pain. She denies nausea and vomiting. She denies abdominal pain. She has been at [facility]. She says it has been very humid in her room and thinks that has contributed to her illness. She wants to explore other options with social work. Source: patient, family Exam Limitations: no limitations Date Seen 12/13/21 Time Seen by a Provider: 11:10 Attending Physician Jaren Urban DO PCP Admitting Physician: Dee Dee Lowry MD Attending Physician: Jaren Urban DO Referring Physician Date of Admission Dec 12, 2021 at 22:40 Home Medications & Allergies Home Medications Reviewed patient Home Medication Reconciliation performed by pharmacy medication reconciliations environmental compliance technician and/or nursing. Patients Allergies have been reviewed. Allergies Allergies Coded Allergies Penicillins (Verified Allergy, Severe, SOA, pt has received Ceftriaxone w/o issue, 09/05/19) ciprofloxacin (Verified Allergy, Severe, BURNING SENSATION, 09/04/19) Sulfa (Sulfonamide Antibiotics) (Verified Allergy, Unknown, 09/04/19) bacitracin (Verified Allergy, Unknown, 09/04/19) benazepril (Verified Allergy, Unknown, 09/04/19) nut - unspecified (Verified Allergy, Unknown, 12/14/19) Past Zzfbycj-Wpcceq-Mepffu Hx Patient Social History Marrital Status: Tobacco Use?: No Smoking Status: Never a Smoker Smokeless Tobacco Frequency: Never a User Use of E-Cig and/or Vaping dev: No Substance use?: No Alcohol Use?: No Pt feels they are or have been: No Immunizations Up To Date First/Initial COVID19 Vaccinat: 05/13/2020 Second COVID19 Vaccination Yuri: 06/02/2020 Tetanus Booster (TDap): Unknown Hepatitis A: Yes Hepatitis B: Yes Seasonal Allergies Seasonal Allergies: Yes Current Status status: No status: No Advance Directives: Yes Advance Directive Location: Home Communicates: Verbally Primary Language: Faroese Preferred Spoken Language: Faroese Is interpretation needed?: No Sensory deficits: Vision impairment Implanted or Applied Medical D: None Past Medical History Surgeries: Abdominal, Appendectomy, Gallbladder, Tonsillectomy Hypertension Neuropathy, Seizure Disorder, Traumatic Brain Injury 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 NO SURGERY Blood Disorders: No Family Medical History Cardiovascular disease 19 FATHER Diabetes mellitus 19 FATHER G8 BROTHER Respiratory disorder 19 MOTHER Review of Systems Constitutional: weakness EENTM: no symptoms reported Respiratory: cough, phlegm, short of breath Cardiovascular: palpitations Gastrointestinal: no symptoms reported Genitourinary: no symptoms reported Physical Exam Physical Exam Vital Signs Vital Signs - First Documented 12/12/21 12/13/21 20:25 00:37 Temp 36.7 Pulse 102 Resp 20 B/P (MAP) 189/118 (141) Pulse Ox 95 FiO2 30 Capillary Refill : Less Than 3 Seconds Height, Weight, BMI Height: '" Weight: lbs. oz. kg; 28.65 BMI Method: General Appearance: No Apparent Distress, Chronically ill, Obese HEENT: PERRL/EOMI, Pharynx Normal Neck: Normal Inspection, Supple Respiratory: Lungs Clear, No Respiratory Distress Cardiovascular: No Murmur, Irregularly Irregular Gastrointestinal: Normal Bowel Sounds, Non Tender, Soft Extremity: Normal Inspection, No Pedal Edema Neurologic/Psychiatric: Alert, Oriented x3, Motor Weakness Skin: Normal Color, Warm/Dry Results Results/Procedures Labs Laboratory Tests 12/12/21 20:38 12/13/21 07:19 Patient resulted labs reviewed. Imaging: Reviewed Imaging Report Assessment/Plan Admission Diagnosis NSTEMI Admission Status: Inpatient Order (span 2 midnights) Reason for Inpatient Admission: Cardiology evaluation Assessment and Plan NSTEMI Acute HFrEF NSVT Troponin trended up Telemetry with frequent PVCs, NSVT Echo with EF 30-35%, global hypokinesis Cardiology following Considering left heart catheterization ASA, Plavix, Coreg, Lovenox Bronchitis Possible pneumonia CT chest consistent with bronchitis CT abdomen showed possible bibasilar infiltrates Procalcitonin negative, repeat tomorrow Cefepime Sacral decubitus ulcer Wound care consult Debility PT/OT History of cervical cancer Cisplatin induced neuropathy CT abdomen with no evidence of recurrence HTN T2DM Diagnosis/Problems Diagnosis/Problems (1) NSTEMI (non-ST elevation myocardial infarction) Status: Acute (2) Acute HFrEF (heart failure with reduced ejection fraction) Status: Acute (3) NSVT (nonsustained ventricular tachycardia) Status: Acute (4) Bronchitis Status: Acute (5) Decubitus ulcer of sacral area Status: Acute (6) History of cervical cancer Status: Chronic (7) Cisplatin induced neuropathy Status: Chronic (8) T2DM (type 2 diabetes mellitus) Status: Chronic (9) HTN (hypertension) Status: Chronic DEE DEE LOWRY MD Dec 13, 2021 18:53
[2021-12-13] MEDS: ROSUVASTATIN 20 MG (CRESTOR) TABLET PO SCH (20:06)
[2021-12-14] VITALS (22 sets, daily range): BP systolic 67–152; BP diastolic 48–91
[2021-12-14] MEDS: RT-ALBUTEROL SULF 2.5 MG/3 ML PRE-MIX VIAL INH SCH ×4 (02:45→20:47)
[2021-12-14] MEDS: CEFEPIME INJECTION 1,000 MG in NS (IVPB) 50 ML IV SCH ×4 (03:42→22:02)
[2021-12-14] MEDS: NS IV 1000 ML 1,000 ML IV SCH ×2 (06:51→17:19)
[2021-12-14] MEDS: inSUlin ASPART (NovoLOG) 1 UNIT/0.01 ML (CHARGE PER UNIT) SC SCH ×4 (06:51→22:12)
--- NOTE | 2021-12-14 08:20 | Tele-ICU Progress Note ---
Subjective Date Seen by a Provider: Dec 14, 2021 Time Seen by a Provider: 08:15 Subjective/Events-last exam 71 yo F with CAD came to ED with ligh headedness, ventricular ectopy, started on beta andry, Trop elevated last was 0.729-not clear if this is type 2 or NSTEMI CBC and BMP ok Hx of cervical Ca with peripheral neuopathy from chemo?, CT abd/pelvis did not show reoccurrence Sepsis Event Evaluation Height, Weight, BMI Height: '" Weight: lbs. oz. kg; 30.15 BMI Method: Focused Exam Lactate Level 12/12/21 20:38: Lactic Acid Level 1.02 Time of Focused Exam: 22:00 Exam Exam Patient acknowledged, consented, and participated in this virtual visit which was conducted using real time audio/video Vital Signs Date Time Temp Pulse Resp B/P (MAP) Pulse Ox O2 Delivery O2 Flow Rate FiO2 12/14/21 07:11 84 12/14/21 06:00 81 142/84 (103) 100 Nasal Cannula 2.50 12/14/21 05:00 79 136/74 (92) 99 Nasal Cannula 2.50 12/14/21 04:00 74 139/74 (107) 99 Nasal Cannula 2.50 12/14/21 04:00 36.4 12/14/21 03:30 75 19 122/73 (89) 98 Nasal Cannula 2.50 12/14/21 03:00 79 18 150/91 (121) 100 Nasal Cannula 2.50 12/14/21 02:45 100 Nasal Cannula 2.00 12/14/21 02:00 62 15 98/54 (67) 95 Nasal Cannula 2.50 12/14/21 01:00 66 12/14/21 01:00 66 16 116/61 (79) 91 Nasal Cannula 2.50 12/14/21 00:30 64 15 107/53 (71) 91 Nasal Cannula 2.50 12/14/21 00:00 65 16 90/48 (62) 94 Nasal Cannula 2.50 12/14/21 00:00 36.4 12/13/21 23:00 73 13 116/68 (87) 97 Nasal Cannula 2.50 12/13/21 22:05 98 Nasal Cannula 2.00 12/13/21 22:00 70 102/49 (73) 97 Nasal Cannula 2.50 12/13/21 21:30 80 37 133/64 (89) 96 Nasal Cannula 2.50 12/13/21 21:00 84 141/77 (101) 97 Nasal Cannula 2.50 12/13/21 20:31 97 Nasal Cannula 2.50 12/13/21 20:00 80 16 120/61 (85) 96 Nasal Cannula 2.50 12/13/21 20:00 36.3 12/13/21 19:00 79 12/13/21 19:00 79 14 119/60 (89) 96 Nasal Cannula 2.50 12/13/21 16:00 100 24 134/77 (96) 96 Nasal Cannula 2.50 12/13/21 15:40 95 Nasal Cannula 2.00 12/13/21 12:41 87 12/13/21 12:00 88 16 115/66 (82) 96 Nasal Cannula 2.50 12/13/21 11:59 36.4 12/13/21 09:00 94 Nasal Cannula 2.50 I & O 12/14/21 07:00 Intake Total 820 ml Output Total 1725 ml Balance -905 ml Height & Weight Height: '" Weight: lbs. oz. kg; 30.15 BMI Method: General Appearance: No Apparent Distress, Chronically ill, Obese HEENT: PERRL/EOMI, Pharynx Normal Neck: Normal Inspection, Supple Respiratory: Rales, Other (STILL WITH FAINT EXPIRATORY WHEEZING, BUT INCREASED AERATION AND RESPIRATIONS LESS LABORED) Cardiovascular: Regular Rate, Rhythm, No Edema, Systolic Murmur (4/6), Irregularly Irregular Capillary Refill: Less Than 3 Seconds Gastrointestinal: normal bowel sounds, non tender, soft Extremity: Normal Inspection, No Pedal Edema Neurologic/Psychiatric: Alert, Oriented x3, Motor Weakness Skin: Normal Color, Warm/Dry Results Lab Laboratory Tests 12/12/21 20:38 12/13/21 07:19 Assessment/Plan Assessment/Plan continue beta andry, ASA, statin, lovenox, cardiology svc to follow, to have cardiac cath today Critical Care: Critically Ill Patient CORTES YIN MD Dec 14, 2021 08:20
[2021-12-14] MEDS: CLOPIDOGREL 75 MG (PLAVIX) TABLET PO SCH (08:37)
[2021-12-14] MEDS: ASPIRIN E.C. 81 MG (ECOTRIN) TAB PO SCH (08:37)
[2021-12-14] MEDS: ENOXAPARIN 80 MG/0.8 ML (LOVENOX) SYR SC SCH ×3 (08:45→22:02)
[2021-12-14] MEDS ORDERED: CATHETER FLUSH 10 ML SYR IV PRN (08:45)
--- NOTE | 2021-12-14 09:01 | Cardiology Progress Note ---
Progress Note-Cardiology Events since last exam Date Seen by Provider: Dec 14, 2021 Time Seen by Provider: 08:58 Events since last exam I am following her due to non-ST elevation myocardial infarction. She has started to cough a little bit more than she was on admission. She is raising a little bit more sputum. At times, she will feel more short of breath after having a coughing spell. She denies chest pain, palpitations, syncope, or ankle edema. Certain portions of this document may have been dictated utilizing voice recognition technology. Inherent to this technology, typographical and grammatical errors may exist. As much as I am diligent to identify and correct these mistakes, some errors may remain in the document. Vitals Last set of Vitals Signs Vital Signs 12/13/21 12/14/21 12/14/21 00:37 12:00 12:53 Temp 36.4 Pulse 84 Resp 20 B/P (MAP) 148/72 (97) Pulse Ox 99 O2 Delivery Nasal Cannula O2 Flow Rate 2.50 FiO2 30 Exam Vital Signs Vital Signs Date Time Temp Pulse Resp B/P (MAP) Pulse Ox O2 Delivery O2 Flow Rate FiO2 12/14/21 12:53 84 12/14/21 12:00 20 148/72 (97) 99 Nasal Cannula 2.50 12/14/21 12:00 36.4 12/13/21 00:37 30 Physical Exam General: Alert. No acute distress. Eye: No xanthelasma. HENT: Normocephalic. Neck: Jugular venous pressure does not appear elevated. Respiratory: Lungs have scattered rhonchi versus upper airway sounds. Respirations are non-labored. Breath sounds are equal. Symmetrical chest wall expansion. Cardiovascular: Normal rate. Regular rhythm. No murmur. No gallop. Trace bilateral pretibial edema. Gastrointestinal: Soft. Normal bowel sounds. Skin: Warm. Dry. Neurologic: Alert and oriented to person, place, time. Cranial nerves 3-11 grossly intact. Psychiatric: Cooperative. Appropriate mood & affect. Labs Laboratory Tests Test 12/13/21 15:49 12/13/21 19:57 12/14/21 05:43 12/14/21 06:44 Range/Units Glucometer 227 H 198 H 202 H 70-110 MG/DL Procalcitonin 0.12 H <0.10 NG/ML Test 12/14/21 12:47 Range/Units Glucometer 168 H 70-110 MG/DL Diagnosis/Problems Diagnosis/Problems (1) Non-ST elevation myocardial infarction (NSTEMI), initial care episode Assessment & Plan: She had a rise in her troponin consistent with a probable non-ST elevation myocardial infarction. She also has moderate left ventricular systolic dysfunction. In light of these findings, I recommend further evaluation with a cardiac catheterization. Since she seems to be a little bit more congested today and short of breath, I will plan to do this procedure tomorrow morning. She also ate breakfast this morning. We will continue aspirin, clopidogrel, enoxaparin, beta-andry and statin medication. I will keep her n.p.o. after midnight. I have explained the benefits and risks of the procedure to the patient and her and both are in agreement to proceed. We will hold the morning dose of enoxaparin for the cardiac catheterization. (2) Ventricular tachycardia Assessment & Plan: She was also having some nonsustained ventricular tachycardia in the emergency room. This is concerning in light of the possible non-ST elevation myocardial infarction. This is another high risk feature. We will continue beta-andry and attempt to titrate her up to the dose she was taking at home as tolerated by her blood pressure. (3) Cardiomyopathy Assessment & Plan: Her ejection fraction was 30-35% by echocardiogram on 12/13. This puts her at risk for ventricular arrhythmias and sudden cardiac . I recommend a LifeVest. She and her are in agreement. She was taking carvedilol at home. I will start her on low-dose losartan. She does not seem to have any overt evidence of heart failure at this time. (4) Primary hypertension Assessment & Plan: I will restart low-dose beta-andry. I have also added losartan for the cardiomyopathy. We will need to watch her blood pressures closely. (5) Mixed hyperlipidemia Assessment & Plan: In light of the possible non-ST elevation myocardial infarction, I recommend intensive dose statin medication. (6) Type 2 diabetes mellitus with complication Assessment & Plan: This is being managed by the hospitalist. (7) History of cervical cancer Status: Chronic Assessment & Plan: She had a CT of the abdomen and pelvis during this admission that did not show any evidence of recurrence of her cervical cancer. DARRON ROBBINS JR, MD Dec 14, 2021 09:01
--- NOTE | 2021-12-14 09:04 | Progress Note - Hospitalist ---
Subjective HPI/CC On Admission Date Seen by Provider: Dec 14, 2021 Kemal Mireles is a 71 year old female with PMH HTN, T2DM on insulin, history of cervical cancer, chemotherapy associated neuropathy, who presented with upper respiratory symptoms. She has been feeling sick for the past 9 days. She reports congestion and cough. She has some shortness of breath. She denies fevers. She denies chest pain. She denies nausea and vomiting. She denies abdominal pain. She has been at [facility]. She says it has been very humid in her room and thinks that has contributed to her illness. She wants to explore other options with social work. Subjective/Events-last exam Pt reports feeling ok today. Still coughing but no other specific complaints. Discussed her echo results and need to talk with cardiology about cause. Focused Exam Lactate Level 12/12/21 20:38: Lactic Acid Level 1.02 Time of Focused Exam: 22:00 Objective Exam Vital Signs Vital Signs Date Time Temp Pulse Resp B/P (MAP) Pulse Ox O2 Delivery O2 Flow Rate FiO2 12/14/21 08:00 90 136/77 (96) 99 Nasal Cannula 2.50 12/14/21 04:00 36.4 12/14/21 03:30 19 12/13/21 00:37 30 Capillary Refill : Less Than 3 Seconds General Appearance: No Apparent Distress, Chronically ill Respiratory: No Respiratory Distress, Wheezing Cardiovascular: Regular Rate, Rhythm, No Murmur Gastrointestinal: Normal Bowel Sounds, Soft Extremity: Pedal Edema Neurologic/Psychiatric: Alert, Oriented x3 Results/Procedures Lab Patient resulted labs reviewed. Imaging: Reviewed Imaging Report Assessment/Plan Assessment and Plan Assess & Plan/Chief Complaint NSTEMI Acute HFrEF NSVT Troponin trended up Telemetry with frequent PVCs, NSVT Echo with EF 30-35%, global hypokinesis Cardiology following Planning for left heart catheterization tomorrow ASA, Plavix, Coreg, Lovenox Bronchitis Possible pneumonia CT chest consistent with bronchitis CT abdomen showed possible bibasilar infiltrates Procalcitonin up slightly Continue Cefepime Sacral decubitus ulcer Wound care consult Debility PT/OT History of cervical cancer Cisplatin induced neuropathy CT abdomen with no evidence of recurrence HTN T2DM No acute needs Continue home meds as able Critical Care Critically Ill Patient ARIEL FISCHER MD Dec 14, 2021 09:04
[2021-12-14] MEDS: LOSARTAN 25 MG (COZAAR) TAB PO SCH (09:50)
[2021-12-14] MEDS: VASOPRESSIN INJECTION 20 UNIT in NS (IVPB) 100 ML IV SCH ×2 (10:30→21:40)
[2021-12-14] MEDS ORDERED: HYPOCHLOROUS ACID/NaCl (VASHE) 250 ML IR PRN (11:15)
[2021-12-14] MEDS ORDERED: FLUC50TA22 PO (11:16)
[2021-12-14] MEDS ORDERED: INSU100V52 SQ (11:16)
[2021-12-14] MEDS ORDERED: BISA5TAB8 PO (11:16)
[2021-12-14] MEDS ORDERED: L. R1TAB PO (11:16)
[2021-12-14] MEDS ORDERED: CNC1KV IM (11:16)
[2021-12-14] MEDS ORDERED: GUAI100L13 PO (11:16)
[2021-12-14] MEDS ORDERED: ONDA-105 PO (11:16)
[2021-12-14] MEDS ORDERED: CHOL200078 PO (11:16)
[2021-12-14] MEDS ORDERED: MAGN400T39 PO (11:16)
[2021-12-14] MEDS ORDERED: ASCO500T71 PO (11:16)
[2021-12-14] MEDS ORDERED: ACET325T38 PO (11:16)
[2021-12-14] MEDS ORDERED: LORA10TA7 PO (11:16)
[2021-12-14] MEDS ORDERED: CARV20CP7 PO (11:16)
[2021-12-14] MEDS ORDERED: CA C1TAB66 PO (11:16)
[2021-12-14] MEDS ORDERED: POLY17PO6 PO (11:16)
[2021-12-14] MEDS ORDERED: ALB0.5V INH (11:16)
[2021-12-14] MEDS ORDERED: guaiFENesin (MUCINEX) 600 MG TAB PO NR (11:30)
[2021-12-14] MEDS ORDERED: DOCUSATE SODIUM 100 MG (COLACE) CAP PO PRN (11:30)
[2021-12-14] MEDS: guaiFENesin SYRUP 100 MG/5 ML 10 ML (ROBITUSSIN SF) PO PRN (14:59)
[2021-12-14] MEDS: NOREPINEPHRINE 8 MG/250 ML 250 ML IV SCH (15:00)
--- NOTE | 2021-12-14 16:54 | Wound Care Assessment ---
Wound Care Assessment Date Seen by Provider: Dec 14, 2021 Time Seen by Provider: 12:00 Chief Complaint Stage 3 pressure ulcer sacrum HPI This pleasante 71 year old lady has a complex medical history with NSTEMI, bronchitis, and anemia. She has a h/o DM2 (with current poor control). She did have elevated inflammatory labs on admit but there was no evidence of osteomyelitis on CT pelvis. She does appear to have mild protein energy malnutrition as well (protein supplementation would be warranted if not already done). She remains on Cefepime for her bronchitis. Her current stage 3 pressure ulcer of the sacrum is without obvious signs of infection. She does have DM2 and FSBS are reviewed (150-200's currently). Improved control warranted for wound healing. Past Medical History: Admits Diabetes Type II, Admits Heart Disease, Admits Myocardial Infarction, Admits Cancer, Treaments Cervical CA s/p chemo and radiation Smoking Status: Never a Smoker Recreational Drug Use: No Alcohol Use: Denies Use Review of Systems General: Other (Obesity) Neurological: Weakness, Seizures Exam Vital Signs Date Time Temp Pulse Resp B/P (MAP) Pulse Ox O2 Delivery O2 Flow Rate FiO2 12/14/21 16:00 36.3 90 24 141/76 (97) 100 12/14/21 16:00 Nasal Cannula 1.00 12/13/21 00:37 30 Capillary Refill : Less Than 3 Seconds General Appearance: moderate distress (SOA when lying flat), obese Cardiovascular: no edema Respiratory: respiratory distress (SOA when lying flat for wound assessment) Extremities: no pedal edema Neurologic/Psychiatric: alert, normal mood/affect, oriented x 3 Skin: normal color, warm/dry Skin Problem Location: other (sacrum) Skin Character: drainage (serous) Wound assessment: 2.2x1.0x0.2. The epithelialization is none. There is no tunneling or undermining. Drainage is large and serous. Granulation is none. Necrotic is large and slough. The margins show epibole. Results Laboratory Tests 12/13/21 19:57: Glucometer 198H 12/14/21 05:43: Procalcitonin 0.12H 12/14/21 06:44: Glucometer 202H 12/14/21 12:47: Glucometer 168H 12/14/21 16:13: Glucometer 157H Microbiology 12/13/21 Gram Stain - Final, Resulted 12/13/21 Sputum Culture - Preliminary, Resulted Usual upper respiratory kwasi 12/12/21 Urine Culture - Preliminary, Resulted Pseudomonas aeruginosa 12/12/21 Blood Culture - Preliminary, Resulted No growth Microbiology 12/13/21 Gram Stain - Final, Resulted 12/13/21 Sputum Culture - Preliminary, Resulted Usual upper respiratory kwasi 12/12/21 Urine Culture - Preliminary, Resulted Pseudomonas aeruginosa 12/12/21 Blood Culture - Preliminary, Resulted No growth 12/12/21 Blood Culture - Preliminary, Resulted No growth Assessment/Plan/Dx Assessment: 1. Stage 3 pressure ulcer sacrum 2. DM2-poor control 3. Immobility 4. Obesity 5. NSTEMI 6. h/o cervical CA with radiation and chemo 7. Mild PEM 8. Anemia 9. Cutaneous candidiasis of skin folds 10. Incontinence of bowel and bladder Plan: 1. Cleanse daily with Vashe. Apply silver alginate hydrofiber to wound bed. Cover with BFD and change bid and prn for soiling. Barrier ointment to periwound. 2. Improved glycemic control advised 3. Off loading by frequent position changes (as able-cath planned tomorrow) 4. Per PCP 5. Per cardiology 6. Per PCP 7. Protein supplementation warranted 8. Per PCP 9. Miconazole powder 10. PRN dressing changes with soiling as indicated. Barrier ointment. REMY SESAY MD Dec 14, 2021 16:54
[2021-12-14] MEDS ORDERED: guaiFENesin (MUCINEX) 600 MG TAB PO SCH (21:00)
[2021-12-14] MEDS: ROSUVASTATIN 20 MG (CRESTOR) TABLET PO SCH (22:02)
[2021-12-14] MEDS: MICONAZOLE 2% POWDER (DESENEX AF) 90 GM TOP SCH (22:02)
[2021-12-15] VITALS (15 sets, daily range): BP systolic 105–160; BP diastolic 55–82
[2021-12-15] MEDS: RT-ALBUTEROL SULF 2.5 MG/3 ML PRE-MIX VIAL INH SCH ×4 (02:43→20:28)
[2021-12-15] MEDS: CEFEPIME INJECTION 1,000 MG in NS (IVPB) 50 ML IV SCH ×4 (03:59→22:37)
[2021-12-15] MEDS: NS IV 1000 ML 1,000 ML IV SCH ×3 (04:00→20:39)
[2021-12-15 05:46] LABS: HEMATOCRIT 32 % (35-52); HEMOGLOBIN 10.4 g/dL (11.5-16.0); MEAN CORPUSCULAR HEMOGLOBIN 28 pg (25-34); MEAN CORPUSCULAR HGB CONC 32 g/dL (32-36); MEAN CORPUSCULAR VOLUME 88 fL (80-99); MEAN PLATELET VOLUME 8.6 fL (9.0-12.2); PLATELET COUNT 249 10^3/uL (130-400); WHITE BLOOD COUNT 5.5 10^3/uL (4.3-11.0)
[2021-12-15 06:05] LABS: CALCIUM 8.2 MG/DL (8.5-10.1)
[2021-12-15] MEDS: inSUlin ASPART (NovoLOG) 1 UNIT/0.01 ML (CHARGE PER UNIT) SC SCH ×4 (06:06→20:41)
[2021-12-15 06:09] LABS: CREATININE SERUM 1.02 MG/DL (0.60-1.30)
[2021-12-15] MEDS: VASOPRESSIN INJECTION 20 UNIT in NS (IVPB) 100 ML IV SCH ×2 (07:37→20:40)
[2021-12-15] MEDS ORDERED: POTASSIUM CL 10MEQ/50ML IVPB 250 ML IV ONE (07:50)
[2021-12-15] MEDS ORDERED: fentaNYL INJ 100 MCG/2 ML AMP ONE (07:54)
[2021-12-15] MEDS ORDERED: VERAPAMIL 5 MG/2 ML (CALAN) VIAL IV ONE (07:54)
[2021-12-15] MEDS ORDERED: NITRO DRIP 25000 MCG/D5W 250 ML IV ONE (07:55)
[2021-12-15] MEDS ORDERED: HEParin 1000 UNIT/ML (10ML VIAL) FOR BOLUS ONE (07:55)
[2021-12-15] MEDS ORDERED: MIDAZOLAM 5 MG/5 ML (VERSED) VIAL ONE (07:55)
[2021-12-15] MEDS ORDERED: NS IV 1000 ML 1,000 ML IV ONE (08:00)
[2021-12-15] MEDS ORDERED: HEParin (CATH LAB) 2,000 ML IV ONE (08:04)
[2021-12-15] MEDS ORDERED: NS IV 1000 ML 0 ML ONE (08:04)
[2021-12-15] MEDS ORDERED: LIDOCAINE 1% INJ 20 ML VIAL ONE (08:05)
[2021-12-15] MEDS: POTASSIUM CL 10MEQ/50ML IVPB 50 ML IV SCH ×6 (08:06→21:29)
[2021-12-15] MEDS: ASPIRIN E.C. 81 MG (ECOTRIN) TAB PO SCH (08:08)
[2021-12-15] MEDS: CLOPIDOGREL 75 MG (PLAVIX) TABLET PO SCH (08:08)
[2021-12-15] MEDS: LOSARTAN 25 MG (COZAAR) TAB PO SCH (08:08)
[2021-12-15] MEDS: MICONAZOLE 2% POWDER (DESENEX AF) 90 GM TOP SCH ×2 (08:09→21:30)
--- NOTE | 2021-12-15 08:31 | Pre-Op Note & Conscious Sedat ---
Pre-Operative Progress Note Date H&P Reviewed: Dec 15, 2021 Time H&P Reviewed: 08:30 History & Physical: H&P Reviewed, Patient Examed, No changes noted Pre-Op Diagnosis: Non-ST elevation myocardial infarction Conscious Sedation Pre-Proced ASA Score 3 For ASA 3 and 4: Consider anesthesia and medical clearance. Also, for patients with a history of failed moderate sedation consider anesthesia. Airway Lungs Heart ASA score ASA 1: a normal healthy patient ASA 2: a patient with a mild systemic disease (mid diabetes, controlled hypertension, obesity ASA 3: a patient with a severe systemic disease that limits activity (angina, COPD, prior Myocardial infarction) ASA 4: a patient with an incapacitating disease that is a constant threat to life (CHF, renal failure) ASA 5: a moribund patient not expected to survive 24 hrs. (ruptured aneurysm) ASA 6: a declared brain- patient whose organs are being harvested. For emergent operations, add the letter E after the classification Mallampati Classification Grade 2 Sedation Plan Analgesia, Amnesia, Plan communicated to team members, Discussed options with patient/fam, Discussed risks with patient/fam The patient is an appropriate candidate to undergo the planned procedure, sedation, and anesthesia. The patient immediately re-assessed prior to indication. DARRON ROBBINS JR, MD Dec 15, 2021 08:31
--- NOTE | 2021-12-15 08:38 | Progress Note - Hospitalist ---
Subjective HPI/CC On Admission Date Seen by Provider: Dec 15, 2021 Kemal Mireles is a 71 year old female with PMH HTN, T2DM on insulin, history of cervical cancer, chemotherapy associated neuropathy, who presented with upper respiratory symptoms. She has been feeling sick for the past 9 days. She reports congestion and cough. She has some shortness of breath. She denies fevers. She denies chest pain. She denies nausea and vomiting. She denies abdominal pain. She has been at [facility]. She says it has been very humid in her room and thinks that has contributed to her illness. She wants to explore other options with social work. Subjective/Events-last exam Pt reports doing well today. Coughing improving. Able to get more up with mucinex. Asking for her Mag to be checked. Agreeable to plan for cath still. Focused Exam Lactate Level 12/12/21 20:38: Lactic Acid Level 1.02 Time of Focused Exam: 22:00 Objective Exam Vital Signs Vital Signs Date Time Temp Pulse Resp B/P (MAP) Pulse Ox O2 Delivery O2 Flow Rate FiO2 12/15/21 08:01 96 12/15/21 08:00 82 96 160/76 (104) Room Air 12/15/21 05:11 36.0 12/14/21 21:01 2.50 12/13/21 00:37 30 Capillary Refill : Less Than 3 Seconds General Appearance: No Apparent Distress, Chronically ill Respiratory: Lungs Clear, No Respiratory Distress Cardiovascular: Regular Rate, Rhythm, No Murmur Neurologic/Psychiatric: Alert, Oriented x3 Results/Procedures Lab Laboratory Tests 12/15/21 05:17 Patient resulted labs reviewed. Imaging: Reviewed Imaging Report Assessment/Plan Assessment and Plan Assess & Plan/Chief Complaint NSTEMI Acute HFrEF NSVT Troponin trended up- plan for cath today Telemetry with frequent PVCs, NSVT Echo with EF 30-35%, global hypokinesis Cardiology following ASA, Plavix, Coreg, Lovenox Bronchitis Possible pneumonia CT chest consistent with bronchitis CT abdomen showed possible bibasilar infiltrates Continue Cefepime Continue mucinex Sacral decubitus ulcer Wound care consult Debility PT/OT History of cervical cancer Cisplatin induced neuropathy CT abdomen with no evidence of recurrence HTN T2DM No acute needs Continue home meds as able Critical Care Critically Ill Patient ARIEL FISCHER MD Dec 15, 2021 08:38
--- NOTE | 2021-12-15 09:13 | Cardiac Cath Report ---
CARDIAC CATHETERIZATION DATE OF PROCEDURE: 12/15/2021 INDICATION: Non-ST elevation myocardial infarction and cardiomyopathy. HISTORY: The patient is a 71 year old female with no previously known history of coronary artery disease. She presented to the hospital with possible pneumonia with sepsis and during her evaluation was found to have elevated troponin levels. She also underwent an echocardiogram that showed moderate left ventricular systolic dysfunction with an estimated ejection fraction of 30-35%. In light of this history, she is now referred for further evaluation with a cardiac catheterization. Given her current clinical status, she is considered moderately frail. She also has an elevated BNP level suggesting some component of acute systolic heart failure, class III. PROCEDURES PERFORMED: 1. Left heart catheterization with hemodynamic measurements. 2. Diagnostic reno-sparks coronary angiography. PROCEDURE DESCRIPTION: After informed consent and in the fasting state, left heart catheterization was performed through the right radial artery utilizing a 6 Spanish system by percutaneous approach. A 5 Spanish JR4 catheter was utilized to interrogate the right coronary artery and for left ventricular measurements. A 5 Spanish FL 3.5 catheter was utilized to interrogate the left coronary artery. All catheters were exchanged over a guidewire. Following the procedure, a vascular band was applied to the radial artery access site and the sheath was removed with good hemostasis. RESULTS: HEMODYNAMICS: The aortic pressure was 74/43 mmHg. The left ventricular pressure was 82/0 mmHg with a left ventricular end-diastolic pressure of 4 mmHg. There was no significant pressure gradient upon pullback across aortic valve. CORONARY ANGIOGRAPHY: The left coronary system was moderately calcified. Left main coronary artery: Free of significant disease. Left anterior descending coronary artery: Free of significant disease. Left circumflex coronary artery: Free of significant disease. There was a 90% stenosis in the ostium of a small second obtuse marginal branch with ANNA MARIE-3 flow. This may have been the ischemia related vessel for the non-ST elevation myocardial infarction but this is approximately a 1.5 mm vessel and would be too small for revascularization. Right coronary artery: Dominant and there was a 40% stenosis in the midsegment at the takeoff of the right ventricular branch with ANNA MARIE-3 flow. IMPRESSION: 1. Low systemic blood pressure and left ventricular end-diastolic pressure. 2. There was mild disease in the mid segment of the dominant right coronary artery and severe disease in a small second obtuse marginal branch. The disease in the second obtuse marginal branch may have been responsible for the non-ST elevation myocardial infarction but this branch is too small for revascularization. 3. The patient is known to have moderate left ventricular systolic dysfunction with an estimated ejection fraction of 30-35% by echocardiogram that was obtained on 12/13/2021. Certain portions of this document may have been dictated utilizing voice recognition technology. Inherent to this technology, typographical and grammatical errors may exist. As much as I am diligent to identify and correct these mistakes, some errors may remain in the document. DARRON ROBBINS JR, MD Dec 15, 2021 09:13
[2021-12-15] MEDS: NOREPINEPHRINE 8 MG/250 ML 250 ML IV SCH (09:58)
[2021-12-15] MEDS: MAGNESIUM 1 GM/100 ML IVPB 100 ML IV SCH (11:17)
--- NOTE | 2021-12-15 11:19 | Diagnostic Imaging Report ---
INDICATION: Shortness of breath. Portable chest obtained at 1045 a.m. compared 12/12/2021 There is cardiomegaly. There is central vascular congestion. There is no focal infiltrate or pneumothorax or pleural fluid. IMPRESSION: Cardiomegaly and central vascular congestion. No focal infiltrate or pneumothorax or pleural fluid. Dictated by: Dictated on workstation # [id number]
[2021-12-15] MEDS: guaiFENesin SYRUP 100 MG/5 ML 10 ML (ROBITUSSIN SF) PO PRN (11:32)
--- NOTE | 2021-12-15 13:57 | Occupational Therapy Eval ---
OT Evaluation-General/PLF Medical Diagnosis Admission Date Dec 12, 2021 at 22:40 Medical Diagnosis: bronchitis, CHF, arrhythmia, DM, UTI, dyspnea Onset Date: Dec 12, 2021 Therapy Diagnosis Therapy Diagnosis: decreased ADL status and weakness Precautions Precautions/Isolations: Fall Prevention, Standard Precautions, Pressure Ulcer Referral Physician: Jace Referral Reason: Evaluation/Treatment Medical History Additional Medical History HTN, DM, cervical cancer, chemo associated neuropathy, seizure, and TBI. Current History Admitted to ED with upper respiratory infection s/s. Social History Home: Single Level Current Living Status: Spouse ADL-Prior Level of Function SCALE: Activities may be completed with or without assistive devices. 5-Yujvjtrwpi-jqaggpt completes the activity by him/herself with no assistance from a helper. 5-Set-up or Clean-up Assistance-helper sets up or cleans up; patient completes activity. [place] assists only prior to or following the activity. 4-Supervision or Touching Assistance-helper provides verbal cues and/or touching/steadying and/or contact guard assistance as patient completes activity. Assistance may be provided throughout the activity or intermittently. 3-Partial/Moderate Assistance-helper does LESS THAN HALF the effort. [place] lifts, holds or supports trunk or limbs, but provides less than half the effort. 2-Substantial/Maximal Assistance-helper does MORE THAN HALF the effort. [place] lifts or holds trunk or limbs and provides more than half the effort. 6-Cdmpjcxai-gebqxk does ALL the effort. Patient does none of the effort to complete the activity. Or, the assistance of 2 or more helpers is required for the patient to complete the activity. If activity was not attempted, code reason: 7-Patient Refused. 9-Not Applicable-not attempted and the patient did not perform the activity before the current illness, exacerbation or injury. 10-Not Attempted due to Environmental Limitations-(lack of equipment, weather restraints, etc.). 88-Not Attempted due to Medical Conditions or Safety Concerns. ADL PLOF Comments Pt lived at home with spouse, but has been at [facility] for the past 6 weeks. Pt reports requiring assistance at [facility]. She has been bedbound for around a year or more after returning home from SNF. She has not been able to get out of bed since. Pt is able to feed herself, complete oral care, change a shirt, and assist with UE bathing (bedlevel), and assist with hygiene. When pt needs to use the bathroom, she wads up "high quality" toilet paper, puts it between her legs, urinates/BM, then throws TP away. Her assists pt with hygiene. Pt has a trapeze above her bed, and was using it to work on UB strengthening. Self Care: Needed Some Help Functional Cognition: Independent Drive Self: No OT Current Status Subjective Pt resting in bed with family present upon OT arrival, agreeable to eval/tx. Mental Status/Objective Patient Orientation: Person, Place, Situation Attachments: IV, Telemetry Current Upper Extremity ROM WFL ADL-Treatment Eating (QC): 6 (per nursing report) Upper Body Dressing (QC): 5 (per pt report) On/Off Footwear (QC): 1 Other Treatments OOB activities and strenuous activities were contraindicated today d/t cardiac procedure, so she remained in bed for duration of tx. She provided information about PLOF and living situation. Pt reports being at her baseline for ADLs, but feels like she has lost some strength and endurance that she gained at [facility]. She told OT about HEP she received from [place]. OT educated pt about the importance of continuing with HEP, when medically appropriate, to regain and maintain strength and endurance for ADLs and functional transfers, pt and spouse both verbalized agreement. Post tx, pt left in bed with call light in reach and all needs met. Education OT Patient Education: Energy conservation, Home exercise program, Modified ADL techniques, Progress toward Goal/Update tx plan, Purpose of tx/functional activities, Rehab process Teaching Recipient: Patient, Significant Other Teaching Methods: Discussion Response to Teaching: Verbalize Understanding OT Nursing Home Goals Nursing Home Goals 1=Demonstrate adherence to instructed precautions during ADL tasks. 2=Patient will verbalize/demonstrate understanding of assistive devices/modific ations for ADL. 3=Patient will improve strength/tolerance for activity to enable patient to perform ADL's. OT Education/Plan Problem List/Assessment Assessment: No Skilled OT Needs ID'd No skilled OT services are indicated at this time as pt is at her baseline and has already received BUE HEP from [facility]. D/c from OT at this time. Discharge Recommendations Plan/Recommendations: Discharge/Goals Met Treatment Plan/Plan of Care Patient would benefit from OT for education, treatment and training to promote independence in ADL's, mobility, safety and/or upper extremity function for ADL's. Plan of Care: ADL Retraining, UE Funct Exercise/Act Treatment Duration: Dec 15, 2021 Frequency: 1 time per week (eval only) Estimated Hrs Per Day: .25 hour per day Time/GCodes Start Time: 13:44 Stop Time: 13:52 Total Time Billed (hr/min): 8 Billed Treatment Time 1, EVL (8') LORRAINE STEPHENSON OT Dec 15, 2021 13:57
--- NOTE | 2021-12-15 14:02 | Physical Therapy Evaluation ---
PT Evaluation-General Medical Diagnosis Admission Date Dec 12, 2021 at 22:40 Medical Diagnosis: bronchitis/CHF/arrhythymias Onset Date: Dec 12, 2021 Therapy Diagnosis Therapy Diagnosis: debility Precautions Precautions/Isolations: Fall Prevention, Standard Precautions, Pressure Ulcer Referral Physician: Jace Reason for Referral: Evaluation/Treatment Medical History Pertinent Medical History: DM, HTN, Neuropathy, TBI Additional Medical History seizures/cervical cancer Current History EMS from [place] secondary to cough x 1 week Reviewed History: Yes Social History Home: Half-Way Prior Prior Level of Function SCALE: Activities may be completed with or without assistive devices. 4-Cruznwmhmo-uhoaexp completes the activity by him/herself with no assistance fr om a helper. 5-Set-up or Clean-up Assistance-helper sets up or cleans up; patient completes activity. [place] assists only prior to or following the activity. 4-Supervision or Touching Assistance-helper provides verbal cues and/or touching/steadying and/or contact guard assistance as patient completes activity. Assistance may be provided throughout the activity or intermittently. 3-Partial/Moderate Assistance-helper does LESS THAN HALF the effort. [place] lifts, holds or supports trunk or limbs, but provides less than half the effort. 2-Substantial/Maximal Assistance-helper does MORE THAN HALF the effort. [place] lifts or holds trunk or limbs and provides more than half the effort. 8-Spdtobegq-hnwpia does ALL the effort. Patient does none of the effort to complete the activity. Or, the assistance of 2 or more helpers is required for the patient to complete the activity. If activity was not attempted, code reason: 7-Patient Refused. 9-Not Applicable-not attempted and the patient did not perform the activity before the current illness, exacerbation or injury. 10-Not Attempted due to Environmental Limitations-(lack of equipment, weather restraints, etc.). 88-Not Attempted due to Medical Conditions or Safety Concerns. Bed Mobility: 1 Transfers (B,C,W/C): 1 (Hair Lift) Gait: 9 Stairs: 9 Wheelchair Mobility: 1 Indoor Mobility (Ambulation): Not [place] Stairs: Not [place] Prior Devices Use: Manual wheelchair, Mechanical lift PT Evaluation-Current Subjective Patient agrees to PT. Adamantly decline OOB or sit EOB on this date. Objective Patient Orientation: Person, Time, Situation ROM/Strength ROM Lower Extremities bilateral LE ankle plantarflexion contractions; right hip ER contracture/left LE limited due to pain Strength Lower Extremities 1/5 grossly bilateral LE Integumentary/Posture Bowel Incontinence: Yes Bladder Incontinence: Yes Neuromuscular (Tone, Coordination, Reflexes) diminished with all bilateral LE Sensory Vision: Functional Hearing: Functional Sensation Right Lower Extremit: Impaired Sensation Left Lower Extremity: Impaired Transfers Roll Left to Right (QC): 1 (x 2) Assessment/Needs Patient is limited with all mobility and is complete dependent with all bed mobility and requires a Hair Lift for OOB activity. Patient, on this date received PROM bilateral LE with stretching in supine position. Rehab Potential: Poor PT Short Term Goals Short Term Goals Time Frame: Dec 26, 2021 Roll Left & Right: 2 PT Plan Problem List Problem List: Activity Tolerance, Functional Strength, Safety, Balance, Transfer, Bed Mobility, ROM Treatment/Plan Treatment Plan: Continue Plan of Care Treatment Plan: Bed Mobility, Education, Functional Activity [place], Functional Strength, Gait, Safety, Therapeutic Exercise, Transfers Treatment Duration: Dec 26, 2021 Frequency: 5 times per week Estimated Hrs Per Day: .25 hour per day Time/GCodes Time In: 1327 Time Out: 1342 Total Billed Treatment Time: 16 Total Billed Treatment 1 visit EVM 16 min NESTOR GILL PT Dec 15, 2021 14:02
[2021-12-15] MEDS ORDERED: POTASSIUM CL 10MEQ/50ML IVPB 100 ML IV ONE (20:20)
[2021-12-15] MEDS: NS IV 500 ML 500 ML IV PRN (20:28)
[2021-12-15] MEDS: ROSUVASTATIN 20 MG (CRESTOR) TABLET PO SCH (20:41)
[2021-12-15] MEDS ORDERED: ENOXAPARIN 80 MG/0.8 ML (LOVENOX) SYR SC SCH (21:00)
[2021-12-16] VITALS (8 sets, daily range): BP systolic 113–158; BP diastolic 54–89
[2021-12-16] MEDS: RT-ALBUTEROL SULF 2.5 MG/3 ML PRE-MIX VIAL INH SCH ×4 (02:37→20:11)
[2021-12-16] MEDS: CEFEPIME INJECTION 1,000 MG in NS (IVPB) 50 ML IV SCH ×4 (04:26→22:09)
[2021-12-16 06:15] LABS: PHOSPHORUS 2.8 MG/DL (2.3-4.7)
[2021-12-16] MEDS: guaiFENesin SYRUP 100 MG/5 ML 10 ML (ROBITUSSIN SF) PO PRN (06:28)
[2021-12-16] MEDS: NOREPINEPHRINE 8 MG/250 ML 250 ML IV SCH (06:29)
[2021-12-16] MEDS: NS IV 1000 ML 1,000 ML IV SCH ×2 (06:29→15:18)
[2021-12-16] MEDS: KCL 20 MEQ TAB (K-DUR) PO SCH (06:30)
[2021-12-16] MEDS: POTASSIUM CL 10MEQ/50ML IVPB 50 ML IV SCH (06:30)
[2021-12-16] MEDS: inSUlin ASPART (NovoLOG) 1 UNIT/0.01 ML (CHARGE PER UNIT) SC SCH ×4 (06:30→20:36)
[2021-12-16] MEDS: VASOPRESSIN INJECTION 20 UNIT in NS (IVPB) 100 ML IV SCH ×2 (06:31→16:10)
[2021-12-16] MEDS: MAGNESIUM 1 GM/100 ML IVPB 100 ML IV SCH (06:32)
--- NOTE | 2021-12-16 08:06 | Tele-ICU Progress Note ---
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 oz. kg; 30.15 BMI Method: Focused Exam Time of Focused Exam: 22:00 Exam Exam Patient acknowledged, consented, and participated in this virtual visit which was conducted using real time audio/video Vital Signs Date Time Temp Pulse Resp B/P (MAP) Pulse Ox O2 Delivery O2 Flow Rate FiO2 12/16/21 08:00 35.8 12/16/21 07:47 89 12/16/21 07:30 100 Nasal Cannula 2.00 12/16/21 04:00 72 16 135/68 (90) 98 Room Air 12/16/21 03:56 36.0 83 14 141/75 (97) 98 Room Air 12/16/21 02:37 99 Nasal Cannula 2.00 12/16/21 01:00 82 12/16/21 00:00 87 16 151/84 (109) 96 Room Air 12/15/21 23:59 36.3 86 16 149/80 (103) 97 Room Air 12/15/21 20:51 96 Room Air 12/15/21 20:28 94 Room Air 12/15/21 19:59 36.4 81 16 129/69 (89) 94 Room Air 12/15/21 19:00 76 12/15/21 16:00 76 130/76 (94) 96 Room Air 12/15/21 15:44 36.0 76 97 12/15/21 15:41 35.9 84 18 132/73 (92) 97 12/15/21 15:33 97 Room Air 12/15/21 14:00 76 132/73 (92) 97 Room Air 12/15/21 13:00 66 19 111/58 (75) 93 Room Air 12/15/21 12:44 36.0 12/15/21 12:31 74 12/15/21 12:00 71 25 131/69 (89) 96 Room Air 12/15/21 11:00 72 19 129/70 (89) 96 Room Air 12/15/21 10:00 69 19 115/59 (77) 92 Room Air 12/15/21 09:20 73 18 108/65 (79) 92 Room Air I & O 12/16/21 07:00 Intake Total 2450 ml Output Total 700 ml Balance 1750 ml Height & Weight Height: '" Weight: lbs. oz. kg; 30.15 BMI Method: General Appearance: No Apparent Distress, Chronically ill HEENT: PERRL/EOMI, Pharynx Normal Neck: Normal Inspection, Supple Respiratory: Lungs Clear, No Respiratory Distress Cardiovascular: Regular Rate, Rhythm, No Murmur Capillary Refill: Less Than 3 Seconds Gastrointestinal: normal bowel sounds, non tender, soft Extremity: Normal Inspection, No Pedal Edema Neurologic/Psychiatric: Alert, Oriented x3 Skin: Normal Color, Warm/Dry Results Lab Laboratory Tests 12/15/21 05:17 12/15/21 18:54 12/16/21 05:14 Assessment/Plan Assessment/Plan Doing better, can go to floor in my opinion if able to be mobile Critical Care: Critically Ill Patient Time spent with patient (mins): 30 CORTES YIN MD Dec 16, 2021 08:06
[2021-12-16] MEDS: CLOPIDOGREL 75 MG (PLAVIX) TABLET PO SCH (08:33)
[2021-12-16] MEDS: MICONAZOLE 2% POWDER (DESENEX AF) 90 GM TOP SCH ×2 (08:33→20:37)
[2021-12-16] MEDS: ENOXAPARIN 40 MG/0.4 ML (LOVENOX) SYR SC SCH (08:33)
[2021-12-16] MEDS: LOSARTAN 25 MG (COZAAR) TAB PO SCH (08:33)
[2021-12-16] MEDS: ASPIRIN E.C. 81 MG (ECOTRIN) TAB PO SCH (08:33)
[2021-12-16] MEDS: aCETylcysteine 20% (MUCOMYST) 4 ML SOLN VIAL INH SCH ×4 (09:08→20:11)
--- NOTE | 2021-12-16 09:11 | Progress Note - Hospitalist ---
Subjective HPI/CC On Admission Date Seen by Provider: Dec 16, 2021 Kemal Mireles is a 71 year old female with PMH HTN, T2DM on insulin, history of cervical cancer, chemotherapy associated neuropathy, who presented with upper respiratory symptoms. She has been feeling sick for the past 9 days. She reports congestion and cough. She has some shortness of breath. She denies fevers. She denies chest pain. She denies nausea and vomiting. She denies abdominal pain. She has been at [facility]. She says it has been very humid in her room and thinks that has contributed to her illness. She wants to explore other options with social work. Subjective/Events-last exam Pt reports feeling terrible this morning. Relates it to her cough. Has coughing fits and sputum production and thinks that makes her short of breath. Per her worse than yesterday. Does not feel ready to DC home. Focused Exam Time of Focused Exam: 22:00 Objective Exam Vital Signs Vital Signs Date Time Temp Pulse Resp B/P (MAP) Pulse Ox O2 Delivery O2 Flow Rate FiO2 12/16/21 08:53 94 Room Air 12/16/21 08:00 87 13 151/81 (104) 12/16/21 08:00 35.8 12/16/21 07:30 2.00 12/13/21 00:37 30 Capillary Refill : Less Than 3 Seconds General Appearance: No Apparent Distress, Chronically ill Respiratory: Normal Breath Sounds, No Accessory Muscle Use, No Respiratory Distress; No Wheezing; Other (satting 100% ) Cardiovascular: Regular Rate, Rhythm, No Murmur Gastrointestinal: Normal Bowel Sounds, Non Tender, Soft Extremity: Pedal Edema Neurologic/Psychiatric: Alert, Oriented x3 Results/Procedures Lab Laboratory Tests 12/15/21 18:54 12/16/21 05:14 Patient resulted labs reviewed. Imaging: Reviewed Imaging Report Assessment/Plan Assessment and Plan Assess & Plan/Chief Complaint NSTEMI Acute HFrEF NSVT Troponin trended up so cath done 12/15 which revealed mild disease in the dominant right coronary artery and severe disease in the small second obtuse marginal branch that was too small for revascularization Telemetry with frequent PVCs, NSVT Echo with EF 30-35%, global hypokinesis Cardiology following ASA, Plavix, Coreg, Lovenox Bronchitis Possible pneumonia CT chest consistent with bronchitis CT abdomen showed possible bibasilar infiltrates Continue Cefepime Continue mucinex Add mucomyst Sacral decubitus ulcer Wound care consulted Debility PT/OT History of cervical cancer Cisplatin induced neuropathy CT abdomen with no evidence of recurrence HTN T2DM No acute needs Continue home meds as able DVT ppx: Lovenox Critical Care Critically Ill Patient ARIEL FISCHER MD Dec 16, 2021 09:11
--- NOTE | 2021-12-16 09:50 | Cardiology Progress Note ---
Progress Note-Cardiology Events since last exam Date Seen by Provider: Dec 16, 2021 Time Seen by Provider: 09:49 Events since last exam I am following her due to NSTEMI and cardiomyopathy. Following her cardiac catheterization on 12/15, I changed her enoxaparin over to DVT prophylaxis dosing. She has a persistent cough and shortness of breath. She denies chest pain, palpitations, syncope, or ankle edema. Certain portions of this document may have been dictated utilizing voice recognition technology. Inherent to this technology, typographical and grammatical errors may exist. As much as I am diligent to identify and correct these mistakes, some errors may remain in the document. Vitals Last set of Vitals Signs Vital Signs 12/13/21 12/16/21 12/16/21 12/16/21 00:37 07:30 08:00 08:53 Temp 35.8 Pulse 87 Resp 13 B/P (MAP) 151/81 (104) Pulse Ox 94 O2 Delivery Room Air O2 Flow Rate 2.00 FiO2 30 Labs Labs Laboratory Tests 12/15/21 18:54 12/16/21 05:14 Exam Vital Signs Vital Signs Date Time Temp Pulse Resp B/P (MAP) Pulse Ox O2 Delivery O2 Flow Rate FiO2 12/16/21 08:53 94 Room Air 12/16/21 08:00 87 13 151/81 (104) 12/16/21 08:00 35.8 12/16/21 07:30 2.00 12/13/21 00:37 30 Physical Exam General: Alert. No acute distress. She is overweight. She is on oxygen by nasal cannula. Eye: No xanthelasma. HENT: Normocephalic. Neck: Jugular venous pressure does not appear elevated. Respiratory: Lungs scattered rhonchi. Respirations are non-labored. Breath sounds are equal. Symmetrical chest wall expansion. Cardiovascular: Normal rate. Regular rhythm. No murmur. No gallop. Trace bilateral pretibial edema. Gastrointestinal: Soft. Normal bowel sounds. Skin: Warm. Dry. Neurologic: Alert and oriented to person, place, time. Cranial nerves 3-11 grossly intact. Bilateral foot drop. Psychiatric: Cooperative. Appropriate mood & affect. Labs Laboratory Tests Test 12/15/21 11:29 12/15/21 16:48 12/15/21 18:54 12/16/21 05:14 Range/Units Glucometer 143 H 118 H 70-110 MG/DL Potassium Level 3.6 4.0 3.6-5.0 MMOL/L Phosphorus Level 2.8 2.3-4.7 MG/DL Magnesium Level 2.0 1.6-2.4 MG/DL Test 12/16/21 06:23 Range/Units Glucometer 150 H 70-110 MG/DL Diagnosis/Problems Diagnosis/Problems (1) Non-ST elevation myocardial infarction (NSTEMI), initial care episode Assessment & Plan: She had a rise in her troponin consistent with a probable non-ST elevation myocardial infarction. She also has moderate left ventricular systolic dysfunction. Her cardiac catheterization showed severe disease of a small obtuse marginal branch that may have been responsible for the myocardial infarction but this was too small for revascularization. She had mild disease elsewhere. We will continue medical therapy with aspirin, clopidogrel, beta- andry and statin medication. (2) Ventricular tachycardia Assessment & Plan: She was also having some nonsustained ventricular tachy cardia in the emergency room. This is concerning in light of the possible non- ST elevation myocardial infarction. This is another high risk feature. We will continue beta-andry and attempt to titrate her up to the dose she was taking at home as tolerated by her blood pressure. (3) Cardiomyopathy Assessment & Plan: Her ejection fraction was 30-35% by echocardiogram on 12/13. Given that her cardiac catheterization only showed significant disease in a very small obtuse marginal branch, this is likely nonischemic cardiomyopathy. The cardiomyopathy puts her at risk for ventricular arrhythmias and sudden cardiac . I recommend a LifeVest. She and her were in agreement but they were a little confused about information they received regarding the LifeVest. I explained the reasoning behind a LifeVest again and now they seem to be agr eeable. (4) Acute HFrEF (heart failure with reduced ejection fraction) Status: Acute Assessment & Plan: She likely has some component of acute heart failure with reduced ejection fraction. We will attempt to get her on the appropriate guideline directed medical therapy as above. (5) Primary hypertension Assessment & Plan: I resumed carvedilol which she was taking at home although she was on the long-acting version. I have also added losartan for the cardiomyopathy. We will need to watch her blood pressures closely. (6) Mixed hyperlipidemia Assessment & Plan: In light of the non-ST elevation myocardial infarction, I recommend intensive dose statin medication. (7) Type 2 diabetes mellitus with complication Assessment & Plan: This is being managed by the hospitalist. (8) History of cervical cancer Status: Chronic Assessment & Plan: She had a CT of the abdomen and pelvis during this admission that did not show any evidence of recurrence of her cervical cancer. DARRON ROBBINS JR, MD Dec 16, 2021 09:50
--- NOTE | 2021-12-16 14:41 | Physical Therapy Daily Note ---
PT Daily Note-Current Subjective Patient in bed pre tx, agrees to PT, has no complaints of pain at rest. Appearance Patient in bed post tx with nurse call,phone, tray, all needs met. Mental Status Patient Orientation: Person, Place, Situation Transfers SCALE: Activities may be completed with or without assistive devices. 4-Ehikwmxzoj-ueoswau completes the activity by him/herself with no assistance from a helper. 5-Set-up or Clean-up Assistance-helper sets up or cleans up; patient completes activity. [place] assists only prior to or following the activity. 4-Supervision or Touching Assistance-helper provides verbal cues and/or touchi ng/steadying and/or contact guard assistance as patient completes activity. Assistance may be provided throughout the activity or intermittently. 3-Partial/Moderate Assistance-helper does LESS THAN HALF the effort. [place] lifts, holds or supports trunk or limbs, but provides less than half the effort. 2-Substantial/Maximal Assistance-helper does MORE THAN HALF the effort. [place] lifts or holds trunk or limbs and provides more than half the effort. 4-Oruwkylia-hphszu does ALL the effort. Patient does none of the effort to complete the activity. Or, the assistance of 2 or more helpers is required for the patient to complete the activity. If activity was not attempted, code reason: 7-Patient Refused. 9-Not Applicable-not attempted and the patient did not perform the activity before the current illness, exacerbation or injury. 10-Not Attempted due to Environmental Limitations-(lack of equipment, weather restraints, etc.). 88-Not Attempted due to Medical Conditions or Safety Concerns. Exercises Supine Ex: Heel Slides, Short Arc Quads, Straight leg raise, Hip abd/add Supine Reps: 20 (AAROM) manual bilateral calf stretching Treatments ROM, stretching Assessment Current Status: Poor Progress patient has severe bilateral plantarflexion contractures PT Short Term Goals Short Term Goals Time Frame: Dec 26, 2021 Roll Left & Right: 2 PT Plan Problem List Problem List: Activity Tolerance, Functional Strength, Safety, Balance, Gait, Transfer, Bed Mobility, ROM Treatment/Plan Treatment Plan: Continue Plan of Care Treatment Plan: Bed Mobility, Education, Functional Activity [place], Functional Strength, Gait, Safety, Therapeutic Exercise, Transfers Treatment Duration: Dec 26, 2021 Frequency: 5 times per week Estimated Hrs Per Day: .25 hour per day Safety Risks/Education Patient Education: Correct Positioning, Safety Issues Teaching Recipient: Patient Teaching Methods: Demonstration, Discussion Response to Teaching: Reinforcement Needed Time/GCodes Time In: 1405 Time Out: 1416 Total Billed Treatment Time: 11 Total Billed Treatment 1 visit EX JAVY VALADEZ PT Dec 16, 2021 14:41
[2021-12-16] MEDS: ROSUVASTATIN 20 MG (CRESTOR) TABLET PO SCH (20:30)
[2021-12-17] VITALS: BP_SYST 141; BP_SYST 145; BP_DIAS 75; BP_DIAS 78
[2021-12-17] MEDS: aCETylcysteine 20% (MUCOMYST) 4 ML SOLN VIAL INH SCH ×4 (02:21→21:35)
[2021-12-17] MEDS: RT-ALBUTEROL SULF 2.5 MG/3 ML PRE-MIX VIAL INH SCH ×4 (02:21→21:35)
[2021-12-17] MEDS: NOREPINEPHRINE 8 MG/250 ML 250 ML IV SCH ×2 (03:59→18:17)
[2021-12-17 04:00] VITALS: BP 134/60
[2021-12-17] MEDS: CEFEPIME INJECTION 1,000 MG in NS (IVPB) 50 ML IV SCH ×4 (04:19→21:49)
[2021-12-17 05:03] LABS: MAGNESIUM 2.3 MG/DL (1.6-2.4); PHOSPHORUS 2.2 MG/DL (2.3-4.7)
[2021-12-17] MEDS: MAGNESIUM 1 GM/100 ML IVPB 100 ML IV SCH (05:52)
[2021-12-17] MEDS: VASOPRESSIN INJECTION 20 UNIT in NS (IVPB) 100 ML IV SCH ×2 (05:53→16:10)
[2021-12-17] MEDS: inSUlin ASPART (NovoLOG) 1 UNIT/0.01 ML (CHARGE PER UNIT) SC SCH ×4 (05:53→22:54)
[2021-12-17] MEDS: POTASSIUM CL 10MEQ/50ML IVPB 50 ML IV SCH (05:53)
[2021-12-17] MEDS: KCL 20 MEQ TAB (K-DUR) PO SCH (05:53)
[2021-12-17 08:00] VITALS: BP 129/77
[2021-12-17] MEDS: ENOXAPARIN 40 MG/0.4 ML (LOVENOX) SYR SC SCH (09:20)
[2021-12-17] MEDS: LOSARTAN 25 MG (COZAAR) TAB PO SCH (09:20)
[2021-12-17] MEDS: ASPIRIN E.C. 81 MG (ECOTRIN) TAB PO SCH (09:20)
[2021-12-17] MEDS: CLOPIDOGREL 75 MG (PLAVIX) TABLET PO SCH (09:20)
[2021-12-17] MEDS: MICONAZOLE 2% POWDER (DESENEX AF) 90 GM TOP SCH ×2 (09:22→21:50)
--- NOTE | 2021-12-17 09:47 | D/C HH Face to Face Order ---
D/C Face to Face Orders Instructions for Patient Via [facility], Patient Instructions/FollowUp: Please continue to take your medications as written. You can use Miralax as needed for constipation or a dulcolax suppository or fleet enema if needed. Please follow up with Dr Garza as scheduled and with Dr Urban in 1 week. Physician to follow Patient: Dr Urban Discharge Diet for Home: No Restrictions Patient Data-Allergies,Ht & Wt Patient Allergies: Coded Allergies: Penicillins (Verified Allergy, Severe, SOA, pt has received Ceftriaxone w/o issue, 09/05/19) ciprofloxacin (Verified Allergy, Severe, BURNING SENSATION, 09/04/19) Sulfa (Sulfonamide Antibiotics) (Verified Allergy, Unknown, 09/04/19) bacitracin (Verified Allergy, Unknown, 09/04/19) benazepril (Verified Allergy, Unknown, 09/04/19) nut - unspecified (Verified Allergy, Unknown, 12/14/19) Home Health Need/Face to Face Date of Face to Face: Dec 17, 2021 Clinical Findings: Non or partial weight bearing I have seen Pt [id number]: Yes Discharged To: Home Diagnosis/Conditions: Nonischmiec cardiomyopathy, bronchitis, history of cervical cancer Patient is Homebound due to: Non-weight bearing Homebound Status Due to the above stated illness, injury or surgical procedure (medical condition or diagnosis) and associated clinical findings, the patient is homebound because of his/her inability to leave home except with aid of a supportive device and/or person AND leaving the home requires a considerable and taxing effort or is medically contraindicated. Pt req the following assistanc: Aid of another person, Wheelchair Home Health Nursing Orders Home Health Services Order: Nursing Services, [facility] [employer] Division-Evaluate & Treat, Physical Therapy-Evaluate & Treat, Wound Care-Eval/Treat Wound care: Cleanse daily with Vashe. Apply silver alginate hydrofiber to wound bed. Cover with BFD and change bid and prn for soiling. Barrier ointment to periwound. Home Health Infusion Therapy Line Start Date: Dec 12, 2021 Therapy Orders Therapy Orders: OT (must have SN or PT order), Physical Therapy Therapy Specific Orders: Eval assistive deivces, Teach enviro modifications/safety, Increase strength/endurance Wound care: Cleanse daily with Vashe. Apply silver alginate hydrofiber to wound bed. Cover with BFD and change bid and prn for soiling. Barrier ointment to periwound. Certify Stmt I certify that this patient is under my care and that I, a nurse practitioner or a physician; a roofer assistant working with me, had a face to face encounter that -meets the physician face to face encounter requirements with this patient as dated. ARIEL FISCHER MD Dec 17, 2021 09:43
--- NOTE | 2021-12-17 09:49 | Discharge Summary ---
Diagnosis/Chief Complaint Date of Admission Dec 12, 2021 at 22:40 Date of Discharge Discharge Date: Dec 17, 2021 Admission Diagnosis NSTEMI Primary Care [facility] Discharge Diagnosis (1) Non-ST elevation myocardial infarction (NSTEMI), initial care episode (2) Ventricular tachycardia (3) Cardiomyopathy (4) Acute HFrEF (heart failure with reduced ejection fraction) Status: Acute (5) Primary hypertension (6) Mixed hyperlipidemia (7) Type 2 diabetes mellitus with complication (8) History of cervical cancer Status: Chronic Discharge Summary Procedures/Consulations Cardiology- Dr Garza TeleICU Discharge Physical Exam Allergies: Coded Allergies: Penicillins (Verified Allergy, Severe, SOA, pt has received Ceftriaxone w/o issue, 09/05/19) ciprofloxacin (Verified Allergy, Severe, BURNING SENSATION, 09/04/19) Sulfa (Sulfonamide Antibiotics) (Verified Allergy, Unknown, 09/04/19) bacitracin (Verified Allergy, Unknown, 09/04/19) benazepril (Verified Allergy, Unknown, 09/04/19) nut - unspecified (Verified Allergy, Unknown, 12/14/19) Vitals & I&Os Vital Signs Date Time Temp Pulse Resp B/P (MAP) Pulse Ox O2 Delivery O2 Flow Rate FiO2 12/19/21 12:36 76 12/19/21 11:26 36.2 18 110/64 (79) 95 Room Air 12/17/21 08:45 2.00 12/13/21 00:37 30 General Appearance: No Apparent Distress, Chronically ill, Obese Respiratory: No Accessory Muscle Use, Decreased Breath Sounds Cardiovascular: Regular Rate, Rhythm, No Murmur Extremity: Pedal Edema Neurologic/Psychiatric: Alert, Oriented x3 Hospital Course She was admitted to the hospital secondary to NSTEMI shortness of breath. She was felt to have bronchitis and was treated with IV antibiotics for this. She also had an elevated troponin which trended up and echo was done. Her EF was newly diminished at 30% and so she underwent cardiac cath. No intervention was done due to small vessel disease not amenable to intervention. She was instead treated with maximum medical therapies. A LifeVest was arranged due to her EF. She was stable on room air and able to transition to oral antibiotics. She had a wound on her coccyx and wound care was consulted. Wound care education was given to the . She was offered returning to her nursing home facility but declined and would like to discharge home with her with the [facility] home [facility]. services delivery driver was consulted to arrange home health services. He is to follow-up with her primary care physician Dr. Hernandez and with Dr. Garza to follow-up this hospital stay. Labs (last 24 hrs) Laboratory Tests 12/18/21 16:24: Glucometer 190H 12/18/21 20:10: Glucometer 200H 12/19/21 05:10: Sodium Level 140, Potassium Level 3.4L, Chloride Level 108H, Carbon Dioxide Level 23, Anion Gap 9, Blood Urea Nitrogen 20H, Creatinine 0.85, Estimat Glomerular Filtration Rate 73, BUN/Creatinine Ratio 24, Glucose Level 162H, Calcium Level 8.0L, Phosphorus Level 2.0L, Magnesium Level 1.7 12/19/21 05:29: Glucometer 164H 12/19/21 11:43: Glucometer 198H Microbiology 12/13/21 Gram Stain - Final, Complete 12/13/21 Sputum Culture - Final, Complete Usual upper respiratory kwasi 12/12/21 Urine Culture - Final, Complete Pseudomonas aeruginosa 12/12/21 Blood Culture - Preliminary, Resulted Coryneform bacteria Patient resulted labs reviewed. Pending Labs Laboratory Tests 12/19/21 05:10: Sodium Level 140, Potassium Level 3.4, Chloride Level 108, Carbon Dioxide Level 23, Anion Gap 9, Blood Urea Nitrogen 20, Creatinine 0.85, Estimat Glomerular Filtration Rate 73, BUN/Creatinine Ratio 24, Glucose Level 162, Calcium Level 8.0, Phosphorus Level 2.0, Magnesium Level 1.7 12/19/21 05:29: Glucometer 164 12/19/21 11:43: Glucometer 198 Imaging: Reviewed Imaging Report Discussion & Recommendations Discharge Planning: >30 minutes discharge planning Discharge Home Medications: Active Scripts Active Cefdinir 300 Mg Capsule 300 Mg PO BID Vashe Wound Therapy Solution (Sodium Chlor/Hypochlorous Acid) 0.033 % Irrig.soln 0 Ml IR UD PRN with dressing change Losartan Potassium 25 Mg Tablet 25 Mg PO DAILY Aspirin EC (Aspirin) 81 Mg Tablet.dr 81 Mg PO DAILY Rosuvastatin Calcium 20 Mg Tablet 20 Mg PO HS Clopidogrel (Clopidogrel Bisulfate) 75 Mg Tablet 75 Mg PO DAILY Guaifenesin 100 Mg/5 Ml Liquid 10 Ml PO Q4H PRN Insulin Glargine (Insulin Glargine,Hum.rec.anlog) 100 Unit/Ml Vial 15 Unit SQ 1800 30 Days Your blood sugars have been well controlled in the hospital without insulin, please monitor your blood sugars and if they are consistently above 180 you can resume Levemir. If not please log them for your PCP so he can adjust your regimen as needed. Reported Ondansetron HCl 4 Mg Tablet 4 Mg PO Q6H PRN Bisacodyl 5 Mg Tablet.dr 5 Mg PO Q72H PRN Albuterol Sulfate 2.5 Mg/0.5 Ml Vial.neb 2.5 Mg INH Q6H PRN Tylenol (Acetaminophen) 325 Mg Tablet 650 Mg PO Q6H PRN Cyanocobalamin Injection (Cyanocobalamin) 1,000 Mcg/Ml Inj 1,000 Mcg IM TUES Vitamin D3 (Cholecalciferol (Vitamin D3)) 50 Mcg (2000 Unit) Tab.chew 50 Mcg PO DAILY Magnesium (Magnesium Oxide) 400 Mg Magnesium Tablet 400 Mg PO DAILY Loratadine 10 Mg Tablet 10 Mg PO DAILY Miralax (Polyethylene Glycol 3350) 17 Gram Powd.pack 17 Gm PO DAILY Fluconazole 50 Mg Tablet 50 Mg PO TUE TAKES ONCE WEEKLY ON TUESDAY Culturelle Chewable Tablet (L. Rhamnosus GG/Inulin) 10 Billion Cell-200 Mg Tab.chew 1 Each PO DAILY Carvedilol ER (Carvedilol Phosphate) 20 Mg Cpmp.24hr 20 Mg PO DAILY Calcium + Vit D & K Chew Tab (Ca Carbonate/Vitamin D3/Vit K) 500 Mg Calcium-500 Unit-40 Mcg Tab.chew 1 Each PO DAILY Vitamin C (Ascorbic Acid) 500 Mg Tab.chew 1,500 Mg PO DAILY TAKES 3 (500MG) TABS Instructions to patient/family Please see electronic discharge instructions given to patient. ARIEL FISCHER MD Dec 17, 2021 09:49
--- NOTE | 2021-12-17 10:58 | Cardiology Progress Note ---
Progress Note-Cardiology Events since last exam Date Seen by Provider: Dec 17, 2021 Time Seen by Provider: 10:56 Events since last exam I am following her due to NSTEMI and cardiomyopathy. She hopes to go home today. Her breathing and cough are better but not completely back to baseline. She denies chest pain, palpitations, or syncope. She has mild chronic ankle edema which is unchanged. Certain portions of this document may have been dictated utilizing voice recognition technology. Inherent to this technology, typographical and grammatical errors may exist. As much as I am diligent to identify and correct these mistakes, some errors may remain in the document. Vitals Last set of Vitals Signs Vital Signs 12/13/21 12/17/21 12/17/21 00:37 08:45 16:27 Temp 36.9 Pulse 86 Resp 16 B/P (MAP) 143/87 (105) Pulse Ox 94 O2 Delivery Room Air O2 Flow Rate 2.00 FiO2 30 Exam Vital Signs Vital Signs Date Time Temp Pulse Resp B/P (MAP) Pulse Ox O2 Delivery O2 Flow Rate FiO2 12/17/21 16:27 36.9 86 16 143/87 (105) 94 Room Air 12/17/21 08:45 2.00 12/13/21 00:37 30 Physical Exam General: Alert. No acute distress. Eye: No xanthelasma. HENT: Normocephalic. Neck: Jugular venous pressure does not appear elevated. Respiratory: Lungs have coarse upper airway sounds bilaterally. Respirations are non-labored. Breath sounds are equal. Symmetrical chest wall expansion. Cardiovascular: Normal rate. Regular rhythm. Distant S1/S2. No murmur. No gallop. Trace bilateral pretibial edema with bilateral foot drop. Gastrointestinal: Soft. Normal bowel sounds. Skin: Warm. Dry. Neurologic: Alert and oriented to person, place, time. Cranial nerves 3-11 grossly intact. Bilateral foot drop. Psychiatric: Cooperative. Appropriate mood & affect. Labs Laboratory Tests Test 12/16/21 20:35 12/17/21 03:43 12/17/21 05:47 12/17/21 11:00 Range/Units Glucometer 139 H 142 H 199 H 70-110 MG/DL Phosphorus Level 2.2 L 2.3-4.7 MG/DL Magnesium Level 2.3 1.6-2.4 MG/DL Test 12/17/21 15:33 Range/Units Glucometer 187 H 70-110 MG/DL Diagnosis/Problems Diagnosis/Problems (1) Non-ST elevation myocardial infarction (NSTEMI), initial care episode Assessment & Plan: She had a rise in her troponin consistent with a probable non-ST elevation myocardial infarction. She also has moderate left ventricular systolic dysfunction. Her cardiac catheterization showed severe disease of a small obtuse marginal branch that may have been responsible for the myocardial infarction but this was too small for revascularization. She had mild disease elsewhere. We will continue medical therapy with aspirin, clopidogrel, beta- andry and statin medication. (2) Ventricular tachycardia Assessment & Plan: She was also having some nonsustained ventricular tachycardia in the emergency room. This is concerning in light of the non-ST elevation myocardial infarction. This is another high risk feature. We will continue beta-andry and attempt to titrate her up to the dose she was taking at home as tolerated by her blood pressure. (3) Cardiomyopathy Assessment & Plan: Her ejection fraction was 30-35% by echocardiogram on 12/13. Given that her cardiac catheterization only showed significant disease in a very small obtuse marginal branch, this is likely nonischemic cardiomyopathy. The cardiomyopathy puts her at risk for ventricular arrhythmias and sudden cardiac . I recommend a LifeVest. She and her were in agreement but they were a little confused about information they received regarding the LifeVest. I explained the reasoning behind a LifeVest again and now they seem to be agreeable. I will titrate her guideline directed medical therapy as an outpatient. I will not start an aldosterone antagonist at this time because I am concerned about causing hypotension by adding too many medications at once. (4) Acute HFrEF (heart failure with reduced ejection fraction) Status: Acute Assessment & Plan: She likely has some component of acute heart failure with reduced ejection fraction. We will attempt to get her on the appropriate guideline directed medical therapy as above. (5) Primary hypertension Assessment & Plan: I resumed carvedilol which she was taking at home although she was on the long-acting version. I have also added losartan for the cardiomyopathy. We will need to watch her blood pressures closely. (6) Mixed hyperlipidemia Assessment & Plan: In light of the non-ST elevation myocardial infarction, I recommend intensive dose statin medication. (7) Type 2 diabetes mellitus with complication Assessment & Plan: This is being managed by the hospitalist. (8) History of cervical cancer Status: Chronic Assessment & Plan: She had a CT of the abdomen and pelvis during this admission that did not show any evidence of recurrence of her cervical cancer. DARRON ROBBINS JR, MD Dec 17, 2021 10:58
[2021-12-17 12:00] VITALS: BP 115/56
[2021-12-17] MEDS ORDERED: LOSA25TA41 PO (14:56)
[2021-12-17] MEDS ORDERED: SODI475I IR (14:56)
[2021-12-17] MEDS ORDERED: ASPI-1238 PO (14:56)
[2021-12-17] MEDS ORDERED: GUAI100L13 PO (14:56)
[2021-12-17] MEDS ORDERED: INSU100V52 SQ (14:56)
[2021-12-17] MEDS ORDERED: ROSU20TA32 PO (14:56)
[2021-12-17] MEDS ORDERED: CLOP75TA28 PO (14:56)
[2021-12-17] MEDS ORDERED: CEFD300C3 PO (14:59)
[2021-12-17 16:27] VITALS: BP 143/87
[2021-12-17 20:00] VITALS: BP 142/81
[2021-12-17] MEDS: ROSUVASTATIN 20 MG (CRESTOR) TABLET PO SCH (21:49)
[2021-12-18] VITALS (8 sets, daily range): BP systolic 112–137; BP diastolic 54–72
[2021-12-18] MEDS: aCETylcysteine 20% (MUCOMYST) 4 ML SOLN VIAL INH SCH ×4 (03:59→21:34)
[2021-12-18] MEDS: RT-ALBUTEROL SULF 2.5 MG/3 ML PRE-MIX VIAL INH SCH ×4 (03:59→21:34)
[2021-12-18] MEDS: VASOPRESSIN INJECTION 20 UNIT in NS (IVPB) 100 ML IV SCH (05:20)
[2021-12-18 06:30] LABS: HEMATOCRIT 29 % (35-52); HEMOGLOBIN 9.4 g/dL (11.5-16.0); MEAN CORPUSCULAR HEMOGLOBIN 29 pg (25-34); MEAN CORPUSCULAR HGB CONC 33 g/dL (32-36); MEAN CORPUSCULAR VOLUME 88 fL (80-99); MEAN PLATELET VOLUME 9.4 fL (9.0-12.2); PLATELET COUNT 199 10^3/uL (130-400); WHITE BLOOD COUNT 4.5 10^3/uL (4.3-11.0)
[2021-12-18 06:49] LABS: CALCIUM 8.3 MG/DL (8.5-10.1); CREATININE SERUM 0.99 MG/DL (0.60-1.30); POTASSIUM 3.2 MMOL/L (3.6-5.0)
[2021-12-18 06:50] LABS: MAGNESIUM 1.8 MG/DL (1.6-2.4); PHOSPHORUS 1.6 MG/DL (2.3-4.7)
[2021-12-18] MEDS: inSUlin ASPART (NovoLOG) 1 UNIT/0.01 ML (CHARGE PER UNIT) SC SCH ×4 (06:53→20:24)
[2021-12-18] MEDS: MAGNESIUM 1 GM/100 ML IVPB 100 ML IV SCH (06:53)
[2021-12-18] MEDS: KCL 20 MEQ TAB (K-DUR) PO SCH (06:59)
[2021-12-18] MEDS ORDERED: POTASSIUM CL 10MEQ/50ML IVPB 200 ML IV ONE (07:10)
[2021-12-18] MEDS: POTASSIUM CL 10MEQ/50ML IVPB 50 ML IV SCH ×5 (07:38→11:44)
[2021-12-18] MEDS: NS IV 500 ML 500 ML IV PRN (07:39)
--- NOTE | 2021-12-18 08:17 | Progress Note - Hospitalist ---
Subjective HPI/CC On Admission Date Seen by Provider: Dec 18, 2021 Kemal Mireles is a 71 year old female with PMH HTN, T2DM on insulin, history of cervical cancer, chemotherapy associated neuropathy, who presented with upper respiratory symptoms. She has been feeling sick for the past 9 days. She reports congestion and cough. She has some shortness of breath. She denies fevers. She denies chest pain. She denies nausea and vomiting. She denies abdominal pain. She has been at [facility]. She says it has been very humid in her room and thinks that has contributed to her illness. She wants to explore other options with social work. Subjective/Events-last exam Pt reports feeling better today. No complaints. Remains on room air. Focused Exam Time of Focused Exam: 22:00 Objective Exam Vital Signs Vital Signs Date Time Temp Pulse Resp B/P (MAP) Pulse Ox O2 Delivery O2 Flow Rate FiO2 12/18/21 07:47 36.1 77 14 137/64 (88) 97 Room Air 12/17/21 08:45 2.00 12/13/21 00:37 30 Capillary Refill : Less Than 3 Seconds General Appearance: No Apparent Distress, Chronically ill, Obese Respiratory: Lungs Clear, No Respiratory Distress Cardiovascular: Regular Rate, Rhythm, No Murmur Extremity: Pedal Edema, Swelling Neurologic/Psychiatric: Alert, Oriented x3 Results/Procedures Lab Laboratory Tests 12/18/21 05:38 Patient resulted labs reviewed. Imaging: Reviewed Imaging Report Assessment/Plan Assessment and Plan Assess & Plan/Chief Complaint NSTEMI Acute HFrEF NSVT Troponin trended up so cath done 12/15 which revealed mild disease in the dominant right coronary artery and severe disease in the small second obtuse marginal branch that was too small for revascularization Telemetry with frequent PVCs, NSVT Echo with EF 30-35%, global hypokinesis Cardiology following ASA, Plavix, Coreg, Lovenox, statin Bronchitis Possible pneumonia CT chest consistent with bronchitis CT abdomen showed possible bibasilar infiltrates Continue Omnicef Continue mucinex Sacral decubitus ulcer Wound care consulted Debility PT/OT History of cervical cancer Cisplatin induced neuropathy CT abdomen with no evidence of recurrence HTN T2DM No acute needs Continue home meds as able DVT ppx: Lovenox Patient was discharged yesterday, elected to appeal discharge as it was late in the day (~4pm) and they didn't feel comfortable going home in the evening. Awaiting response. Critical Care Critically Ill Patient ARIEL FISCHER MD Dec 18, 2021 08:17
[2021-12-18] MEDS: CEFDINIR 300 MG (OMNICEF) CAP PO SCH ×2 (08:43→20:24)
[2021-12-18] MEDS: ASPIRIN E.C. 81 MG (ECOTRIN) TAB PO SCH (08:45)
[2021-12-18] MEDS: CLOPIDOGREL 75 MG (PLAVIX) TABLET PO SCH (08:45)
[2021-12-18] MEDS: LOSARTAN 25 MG (COZAAR) TAB PO SCH (08:45)
[2021-12-18] MEDS: ENOXAPARIN 40 MG/0.4 ML (LOVENOX) SYR SC SCH (08:45)
[2021-12-18] MEDS: MICONAZOLE 2% POWDER (DESENEX AF) 90 GM TOP SCH ×2 (08:46→20:24)
--- NOTE | 2021-12-18 08:55 | Cardiology Progress Note ---
Progress Note-Cardiology Events since last exam Date Seen by Provider: Dec 18, 2021 Time Seen by Provider: 08:53 Events since last exam I am following her due to NSTEMI and cardiomyopathy. Yesterday her learned how to do some of her wound care and she was also fitted for the LifeVest. All this activity made the patient more short of breath. As such, she did not get discharged to home as planned. She hopes to be discharged today. She does still have a cough and shortness of breath. She has some slight chest discomfort when she coughs but not at rest. She denies palpitations or syncope. No change in her chronic, mild ankle edema. Certain portions of this document may have been dictated utilizing voice recognition technology. Inherent to this technology, typographical and grammatical errors may exist. As much as I am diligent to identify and correct these mistakes, some errors may remain in the document. Vitals Last set of Vitals Signs Vital Signs 12/13/21 12/17/21 12/18/21 12/18/21 00:37 08:45 12:00 13:00 Temp 36.0 Pulse 86 Resp 24 B/P (MAP) 128/64 (85) Pulse Ox 96 O2 Delivery Room Air O2 Flow Rate 2.00 FiO2 30 Labs Labs Laboratory Tests 12/18/21 05:38 Exam Vital Signs Vital Signs Date Time Temp Pulse Resp B/P (MAP) Pulse Ox O2 Delivery O2 Flow Rate FiO2 12/18/21 13:00 86 12/18/21 12:00 36.0 12/18/21 12:00 24 128/64 (85) 96 Room Air 12/17/21 08:45 2.00 12/13/21 00:37 30 Physical Exam General: Alert. No acute distress. Eye: No xanthelasma. HENT: Normocephalic. Neck: Jugular venous pressure does not appear elevated. Respiratory: Lungs have coarse upper airway sounds versus scattered rhonchi. Respirations are non-labored. Breath sounds are equal. Symmetrical chest wall expansion. Cardiovascular: Normal rate. Regular rhythm. Distant S1/S2. No murmur. No gallop. 1+ bilateral pretibial edema. Gastrointestinal: Soft. Normal bowel sounds. Skin: Warm. Dry. Neurologic: Alert and oriented to person, place, time. Cranial nerves 3-11 grossly intact. Bilateral foot drop. Psychiatric: Cooperative. Appropriate mood & affect. Labs Laboratory Tests Test 12/17/21 15:33 12/17/21 22:25 12/18/21 05:38 12/18/21 10:43 Range/Units Glucometer 187 H 171 H 187 H 70-110 MG/DL White Blood Count 4.5 4.3-11.0 10^3/uL Red Blood Count 3.25 L 3.80-5.11 10^6/uL Hemoglobin 9.4 L 11.5-16.0 g/dL Hematocrit 29 L 35-52 % Mean Corpuscular Volume 88 80-99 fL Mean Corpuscular Hemoglobin 29 25-34 pg Mean Corpuscular Hemoglobin Concent 33 32-36 g/dL Red Cell Distribution Width 13.8 10.0-14.5 % Platelet Count 199 130-400 10^3/uL Mean Platelet Volume 9.4 9.0-12.2 fL Sodium Level 138 135-145 MMOL/L Potassium Level 3.2 L 3.6-5.0 MMOL/L Chloride Level 108 H 98-107 MMOL/L Carbon Dioxide Level 22 21-32 MMOL/L Anion Gap 8 5-14 MMOL/L Blood Urea Nitrogen 21 H 7-18 MG/DL Creatinine 0.99 0.60-1.30 MG/DL Estimat Glomerular Filtration Rate 61 BUN/Creatinine Ratio 21 Glucose Level 160 H 70-105 MG/DL Calcium Level 8.3 L 8.5-10.1 MG/DL Phosphorus Level 1.6 L 2.3-4.7 MG/DL Magnesium Level 1.8 1.6-2.4 MG/DL Diagnosis/Problems Diagnosis/Problems (1) Non-ST elevation myocardial infarction (NSTEMI), initial care episode Assessment & Plan: She had a rise in her troponin consistent with a probable non-ST elevation myocardial infarction. She also has moderate left ventricular systolic dysfunction. Her cardiac catheterization showed severe disease of a small obtuse marginal branch that may have been responsible for the myocardial infarction but this was too small for revascularization. She had mild disease elsewhere. We will continue medical therapy with aspirin, clopidogrel, beta- andry and statin medication. Even though she does not have a coronary stent, dual antiplatelet therapy has a class I indication following an acute myocardial infarction. (2) Cardiomyopathy Assessment & Plan: Her ejection fraction was 30-35% by echocardiogram on 12/13. Given that her cardiac catheterization only showed significant disease in a very small obtuse marginal branch, this is likely nonischemic cardiomyopathy. The cardiomyopathy puts her at risk for ventricular arrhythmias and sudden cardiac . I recommend a LifeVest. She has now been fitted for a LifeVest. I will titrate her guideline directed medical therapy as an outpatient. I will not start an aldosterone antagonist at this time because I am concerned about causing hypotension by adding too many medications at once. (3) Acute HFrEF (heart failure with reduced ejection fraction) Status: Acute Assessment & Plan: She likely has some component of acute heart failure with reduced ejection fraction. We will attempt to get her on the appropriate guideline directed medical therapy as above. I did give her another dose of IV furosemide this morning due to her persistent shortness of breath. (4) Ventricular tachycardia Assessment & Plan: She was also having some nonsustained ventricular tachycardia in the emergency room. This is concerning in light of the non-ST elevation myocardial infarction. This is another high risk feature. We will continue beta-andry and attempt to titrate her up to the dose she was taking at home as tolerated by her blood pressure. (5) Primary hypertension Assessment & Plan: I resumed carvedilol which she was taking at home although she was on the long-acting version. I have also added losartan for the cardiomyopathy. We will need to watch her blood pressures closely. (6) Mixed hyperlipidemia Assessment & Plan: In light of the non-ST elevation myocardial infarction, I recommend intensive dose statin medication. (7) Type 2 diabetes mellitus with complication Assessment & Plan: This is being managed by the hospitalist. (8) History of cervical cancer Status: Chronic Assessment & Plan: She had a CT of the abdomen and pelvis during this admission that did not show any evidence of recurrence of her cervical cancer. DARRON ROBBINS JR, MD Dec 18, 2021 08:55
[2021-12-18] MEDS ORDERED: FUROSEMIDE 40 MG/4 ML INJ (LASIX) IVP ONE (09:00)
--- NOTE | 2021-12-18 09:27 | Physical Therapy Daily Note ---
PT Daily Note-Current Subjective Patient agrees to PT. Transfers SCALE: Activities may be completed with or without assistive devices. 1-Rihyzinsrk-yivtbbs completes the activity by him/herself with no assistance from a helper. 5-Set-up or Clean-up Assistance-helper sets up or cleans up; patient completes activity. [place] assists only prior to or following the activity. 4-Supervision or Touching Assistance-helper provides verbal cues and/or touching/steadying and/or contact guard assistance as patient completes activity. Assistance may be provided throughout the activity or intermittently. 3-Partial/Moderate Assistance-helper does LESS THAN HALF the effort. [place] lifts, holds or supports trunk or limbs, but provides less than half the effort. 2-Substantial/Maximal Assistance-helper does MORE THAN HALF the effort. [place] lifts or holds trunk or limbs and provides more than half the effort. 9-Dqghnceft-pqtarg does ALL the effort. Patient does none of the effort to complete the activity. Or, the assistance of 2 or more helpers is required for the patient to complete the activity. If activity was not attempted, code reason: 7-Patient Refused. 9-Not Applicable-not attempted and the patient did not perform the activity before the current illness, exacerbation or injury. 10-Not Attempted due to Environmental Limitations-(lack of equipment, weather restraints, etc.). 88-Not Attempted due to Medical Conditions or Safety Concerns. Exercises Supine Ex: LE Protocol, Heel Slides, Straight leg raise, Hip abd/add Supine Reps: 15 (x 2 sets PROM bilaterally) Assessment Patient remains the same with PROM bilateral LE. Education and demonstration with spouse on PROM bilateral LE for him to perform during the day and upon returning to home. PT Short Term Goals Short Term Goals Time Frame: Dec 26, 2021 Roll Left & Right: 2 PT Plan Treatment/Plan Treatment Plan: Continue Plan of Care Treatment Plan: Bed Mobility, Education, Functional Activity Nickolas, Functional Strength, Gait, Safety, Therapeutic Exercise, Transfers Treatment Duration: Dec 26, 2021 Frequency: 5 times per week Estimated Hrs Per Day: .25 hour per day Time/GCodes Time In: 744 Time Out: 753 Total Billed Treatment Time: 9 Total Billed Treatment 1 visit EX 9 min NESTOR GILL PT Dec 18, 2021 09:27
--- NOTE | 2021-12-18 10:14 | Diagnostic Imaging Report ---
EXAMINATION: Chest 1 view HISTORY: Short of breath COMPARISON: 12/15/2021 FINDINGS: There is mild edema. No pleural effusion or pneumothorax. Heart is mildly enlarged. IMPRESSION: 1. Mild edema. Dictated by: Dictated on workstation # [id number]
[2021-12-18] MEDS: ROSUVASTATIN 20 MG (CRESTOR) TABLET PO SCH (20:23)
[2021-12-19] MEDS: RT-ALBUTEROL SULF 2.5 MG/3 ML PRE-MIX VIAL INH SCH ×4 (02:43→19:56)
[2021-12-19] MEDS: aCETylcysteine 20% (MUCOMYST) 4 ML SOLN VIAL INH SCH ×4 (02:43→19:56)
[2021-12-19 04:24] VITALS: BP 114/63
[2021-12-19] MEDS: inSUlin ASPART (NovoLOG) 1 UNIT/0.01 ML (CHARGE PER UNIT) SC SCH ×4 (05:38→20:30)
[2021-12-19 06:35] LABS: MAGNESIUM 1.7 MG/DL (1.6-2.4)
[2021-12-19] MEDS: MAGNESIUM 1 GM/100 ML IVPB 100 ML IV SCH ×3 (06:40→07:49)
[2021-12-19 07:21] LABS: POTASSIUM 3.4 MMOL/L (3.6-5.0)
[2021-12-19 07:22] LABS: CREATININE SERUM 0.85 MG/DL (0.60-1.30)
[2021-12-19 07:34] VITALS: BP 115/70
[2021-12-19] MEDS: KCL 20 MEQ TAB (K-DUR) PO SCH (07:42)
[2021-12-19] MEDS: POTASSIUM CL 10MEQ/50ML IVPB 50 ML IV SCH (07:42)
[2021-12-19] MEDS ORDERED: KCL 10 MEQ TAB (MICRO K) PO NR (08:00)
[2021-12-19] MEDS: CLOPIDOGREL 75 MG (PLAVIX) TABLET PO SCH (09:06)
[2021-12-19] MEDS: ASPIRIN E.C. 81 MG (ECOTRIN) TAB PO SCH (09:07)
[2021-12-19] MEDS: CEFDINIR 300 MG (OMNICEF) CAP PO SCH ×2 (09:07→19:54)
[2021-12-19] MEDS: LOSARTAN 25 MG (COZAAR) TAB PO SCH (09:07)
[2021-12-19] MEDS: MICONAZOLE 2% POWDER (DESENEX AF) 90 GM TOP SCH ×2 (09:08→19:54)
[2021-12-19] MEDS: ENOXAPARIN 40 MG/0.4 ML (LOVENOX) SYR SC SCH (09:08)
--- NOTE | 2021-12-19 10:10 | Cardiology Progress Note ---
Subjective Date Seen by Provider: Dec 19, 2021 Time Seen by Provider: 10:07 Subjective/Events-last exam Patient was seen at bedside, laying down comfortably, still having fatigue and edema. Review of Systems General: No Chills, No Night Sweats; Fatigue, Malaise; No Appetite, No Other HEENT: No Head Aches, No Visual Changes, No Eye Pain, No Ear Pain, No Dysphasia, No Sinus Congestion, No Post Nasal Drip, No Sore Throat, No Other Pulmonary: Dyspnea; No Cough, No Pleuritic Chest Pain, No Other Cardiovascular: Edema; No: Chest Pain, Palpitations, Orthopnea, Paroxysmal Noc. Dyspnea, Lt Headedness, Other Focused Exam Time of Focused Exam: 22:00 Objective-Cardiology Exam Last Set of Vital Signs Vital Signs 12/13/21 12/17/21 12/19/21 00:37 08:45 07:34 Temp 36.4 Pulse 77 Resp 18 B/P (MAP) 115/70 (85) Pulse Ox 94 O2 Delivery Room Air O2 Flow Rate 2.00 FiO2 30 I&O Intake and Output 12/19/21 00:00 Intake Total 1170 ml Output Total 2350 ml Balance -1180 ml Intake Oral 1170 ml Output Urine Total 2350 ml General: Alert, Oriented X3, Cooperative HEENT: Atraumatic, PERRLA Neck: Supple, No JVD, No Thyromegaly Lungs: Clear to Auscultation, Normal Air Movement Heart: Regular Rate, Normal S1, Normal S2, Other (Systolic murmur) Abdomen: Normal Bowel Sounds, Soft, No Tenderness, No Hepatosplenomegaly, No Masses Extremities: No Clubbing, No Cyanosis, Normal Pulses, No Tenderness/Swelling, Other (Peripheral edema) Skin: No Rashes, No Breakdown, No Significant Lesion Neuro: Normal Speech, Normal Tone, Sensation Intact Psych/Mental Status: Mental Status NL, Mood NL Results Lab Laboratory Tests 12/19/21 05:10 A/P-Cardiology Admission Diagnosis Non-ST elevation myocardial infarction Coronary artery disease Congestive heart failure, acute left ventricular systolic dysfunction, ischemic cardiomyopathy Hypertension Assessment/Plan Coronary artery disease, status post non-ST elevation myocardial infarction. Cardiac catheterization carried out by Dr. Garza reported severe disease in the small obtuse marginal branch, not amendable to intervention, mild disease otherwise. Treated with aspirin, Plavix, beta-blockers and statin. Congestive heart failure, acute on chronic left ventricular systolic dysfu nction, ejection fraction 30 to 35% on December 13, 2021. Ischemic cardiomyopathy. LifeVest was recommended Ventricular tachycardia, had nonsustained ventricular tachycardia in the emergency room. Having a LifeVest and treated with beta-blockers. Hypertension, continue current medication monitor blood pressure Hyperlipidemia, started on statin Diabetes mellitus. History of cervical cancer Debility BMI 30. LEONARD SONG MD Dec 19, 2021 10:10
--- NOTE | 2021-12-19 10:10 | Progress Note - Hospitalist ---
Subjective HPI/CC On Admission Date Seen by Provider: Dec 19, 2021 Kemal Mireles is a 71 year old female with PMH HTN, T2DM on insulin, history of cervical cancer, chemotherapy associated neuropathy, who presented with upper respiratory symptoms. She has been feeling sick for the past 9 days. She reports congestion and cough. She has some shortness of breath. She denies fevers. She denies chest pain. She denies nausea and vomiting. She denies abdominal pain. She has been at [facility]. She says it has been very humid in her room and thinks that has contributed to her illness. She wants to explore other options with social work. Subjective/Events-last exam Patient reports feeling miserable again today. But then states she is coughing less and was able to eat the most she has been in a while. We discussed her lab results from today. Discussed plan to await results from appeal of discharge. States she is not worried about the insurance decision as she has wonderful insurance and is not concerned about needing to pay should they uphold the discharge. Focused Exam Time of Focused Exam: 22:00 Objective Exam Vital Signs Vital Signs Date Time Temp Pulse Resp B/P (MAP) Pulse Ox O2 Delivery O2 Flow Rate FiO2 12/19/21 07:34 36.4 77 18 115/70 (85) 94 Room Air 12/17/21 08:45 2.00 12/13/21 00:37 30 Capillary Refill : Less Than 3 Seconds General Appearance: No Apparent Distress, Chronically ill Respiratory: No Accessory Muscle Use, No Respiratory Distress (on room air), Rhonci (mild and improving) Cardiovascular: Regular Rate, Rhythm, No Murmur Gastrointestinal: Normal Bowel Sounds, Non Tender, Soft Extremity: Pedal Edema, Swelling Neurologic/Psychiatric: Alert, Oriented x3 Results/Procedures Lab Laboratory Tests 12/19/21 05:10 Patient resulted labs reviewed. Imaging: Reviewed Imaging Report Assessment/Plan Assessment and Plan Assess & Plan/Chief Complaint NSTEMI Acute HFrEF NSVT cath done 12/15 which revealed mild disease in the dominant right coronary artery and severe disease in the small second obtuse marginal branch that was too small for revascularization Echo with EF 30-35%, global hypokinesis- fitted for lifevest Cardiology following ASA, Plavix, Coreg, Lovenox, statin Bronchitis Possible pneumonia CT chest consistent with bronchitis CT abdomen showed possible bibasilar infiltrates Continue Omnicef Continue mucinex IS Sacral decubitus ulcer Wound care consulted Debility PT/OT History of cervical cancer Cisplatin induced neuropathy CT abdomen with no evidence of recurrence HTN T2DM No acute needs Continue home meds as able DVT ppx: Lovenox Patient was discharged 12/17, elected to appeal discharge as it was late in the day (~4pm) and they didn't feel comfortable going home in the evening. Awaiting response still. Critical Care Critically Ill Patient ARIEL FISCHER MD Dec 19, 2021 10:10
[2021-12-19 11:26] VITALS: BP 110/64
[2021-12-19 15:25] VITALS: BP 115/57
[2021-12-19] MEDS: ROSUVASTATIN 20 MG (CRESTOR) TABLET PO SCH (19:54)
[2021-12-19 20:00] VITALS: BP 145/64
[2021-12-20 00:31] VITALS: BP 118/57
[2021-12-20] MEDS: RT-ALBUTEROL SULF 2.5 MG/3 ML PRE-MIX VIAL INH SCH ×4 (03:12→20:34)
[2021-12-20] MEDS: aCETylcysteine 20% (MUCOMYST) 4 ML SOLN VIAL INH SCH ×4 (03:12→20:35)
[2021-12-20 04:14] VITALS: BP 145/71
[2021-12-20] MEDS: inSUlin ASPART (NovoLOG) 1 UNIT/0.01 ML (CHARGE PER UNIT) SC SCH ×4 (06:08→21:17)
[2021-12-20 06:34] LABS: CALCIUM 7.9 MG/DL (8.5-10.1); CREATININE SERUM 0.77 MG/DL (0.60-1.30); MAGNESIUM 1.8 MG/DL (1.6-2.4); PHOSPHORUS 2.2 MG/DL (2.3-4.7); POTASSIUM 3.5 MMOL/L (3.6-5.0)
[2021-12-20] MEDS: MAGNESIUM 1 GM/100 ML IVPB 100 ML IV SCH (06:46)
[2021-12-20] MEDS: POTASSIUM CL 10MEQ/50ML IVPB 50 ML IV SCH (06:47)
[2021-12-20] MEDS: KCL 20 MEQ TAB (K-DUR) PO SCH (06:49)
[2021-12-20 07:37] VITALS: BP 129/60
[2021-12-20] MEDS ORDERED: KCL 10 MEQ TAB (MICRO K) PO ONE ×2 (09:00→09:57)
--- NOTE | 2021-12-20 09:05 | Cardiology Progress Note ---
Subjective Date Seen by Provider: Dec 20, 2021 Time Seen by Provider: 09:04 Subjective/Events-last exam Patient was seen at bedside, still having cough and chest discomfort with cough. Review of Systems General: No Chills, No Night Sweats; Fatigue, Malaise; No Appetite, No Other HEENT: No Head Aches, No Visual Changes, No Eye Pain, No Ear Pain, No Dysphasia, No Sinus Congestion, No Post Nasal Drip, No Sore Throat, No Other Pulmonary: Dyspnea, Cough; No Pleuritic Chest Pain, No Other Cardiovascular: Chest Pain; No: Palpitations, Orthopnea, Paroxysmal Noc. Dyspnea, Edema, Lt Headedness, Other Focused Exam Time of Focused Exam: 22:00 Objective-Cardiology Exam Last Set of Vital Signs Vital Signs 12/17/21 12/20/21 08:45 07:37 Temp 36.4 Pulse 73 Resp 18 B/P (MAP) 129/60 (83) Pulse Ox 95 O2 Delivery Room Air O2 Flow Rate 2.00 I&O Intake and Output 12/20/21 00:00 Intake Total 880 ml Output Total 800 ml Balance 80 ml Intake Oral 680 ml IV Total 200 ml Output Urine Total 800 ml # Voids 2 General: Alert, Oriented X3, Cooperative HEENT: Atraumatic, PERRLA Neck: Supple, No JVD, No Thyromegaly Lungs: Clear to Auscultation, Normal Air Movement Heart: Regular Rate, Normal S1, Normal S2, Other (Systolic murmur) Abdomen: Normal Bowel Sounds, Soft, No Tenderness, No Hepatosplenomegaly, No Masses Extremities: No Clubbing, No Cyanosis, Normal Pulses, No Tenderness/Swelling, Other (Peripheral edema) Skin: No Rashes, No Breakdown, No Significant Lesion Neuro: Normal Speech, Normal Tone, Sensation Intact Psych/Mental Status: Mental Status NL, Mood NL Results Lab Laboratory Tests 12/20/21 06:05 A/P-Cardiology Admission Diagnosis Non-ST elevation myocardial infarction Coronary artery disease Congestive heart failure, acute left ventricular systolic dysfunction, ischemic cardiomyopathy Hypertension Assessment/Plan Coronary artery disease, status post non-ST elevation myocardial infarction. Cardiac catheterization carried out by Dr. Garza reported severe disease in the small obtuse marginal branch, not amendable to intervention, mild disease otherwise. Treated with aspirin, Plavix, beta-blockers and statin. Congestive heart failure, acute on chronic left ventricular systolic dysfunction, ejection fraction 30 to 35% on December 13, 2021. Ischemic cardiomyopathy. LifeVest was recommended Ventricular tachycardia, had nonsustained ventricular tachycardia in the emergency room. Having a LifeVest and treated with beta-blockers. Hypertension, continue current medication monitor blood pressure Hyperlipidemia, started on statin Diabetes mellitus. History of cervical cancer Debility BMI 30. LEONARD SONG MD Dec 20, 2021 09:05
[2021-12-20] MEDS: ENOXAPARIN 40 MG/0.4 ML (LOVENOX) SYR SC SCH (10:01)
[2021-12-20] MEDS: ASPIRIN E.C. 81 MG (ECOTRIN) TAB PO SCH (10:02)
[2021-12-20] MEDS: CEFDINIR 300 MG (OMNICEF) CAP PO SCH ×2 (10:02→21:11)
[2021-12-20] MEDS: CLOPIDOGREL 75 MG (PLAVIX) TABLET PO SCH (10:02)
[2021-12-20] MEDS: LOSARTAN 25 MG (COZAAR) TAB PO SCH (10:02)
[2021-12-20] MEDS: MICONAZOLE 2% POWDER (DESENEX AF) 90 GM TOP SCH ×2 (10:03→21:11)
[2021-12-20 11:43] VITALS: BP 133/62
--- NOTE | 2021-12-20 11:46 | Progress Note - Hospitalist ---
Subjective HPI/CC On Admission Date Seen by Provider: Dec 20, 2021 Kemal Mireles is a 71 year old female with PMH HTN, T2DM on insulin, history of cervical cancer, chemotherapy associated neuropathy, who presented with upper respiratory symptoms. She has been feeling sick for the past 9 days. She reports congestion and cough. She has some shortness of breath. She denies fevers. She denies chest pain. She denies nausea and vomiting. She denies abdominal pain. She has been at [facility]. She says it has been very humid in her room and thinks that has contributed to her illness. She wants to explore other options with social work. Subjective/Events-last exam Patient reports feeling better today. States she has a persistent cough with less sputum production but breathing improving. We discussed results from appeal of discharge she understands decision. Focused Exam Time of Focused Exam: 22:00 Objective Exam Vital Signs Vital Signs Date Time Temp Pulse Resp B/P (MAP) Pulse Ox O2 Delivery O2 Flow Rate FiO2 12/20/21 09:00 Room Air 12/20/21 07:37 36.4 73 18 129/60 (83) 95 12/17/21 08:45 2.00 Capillary Refill : Less Than 3 Seconds General Appearance: No Apparent Distress, Chronically ill Respiratory: No Accessory Muscle Use, No Respiratory Distress, Rhonci (improving); No Wheezing; Other (on room air) Cardiovascular: Regular Rate, Rhythm, No Murmur Extremity: Pedal Edema Neurologic/Psychiatric: Alert, Oriented x3, Normal Mood/Affect Results/Procedures Lab Laboratory Tests 12/20/21 06:05 Patient resulted labs reviewed. Imaging: Reviewed Imaging Report Assessment/Plan Assessment and Plan Assess & Plan/Chief Complaint NSTEMI Acute HFrEF NSVT cath done 12/15 which revealed mild disease in the dominant right coronary artery and severe disease in the small second obtuse marginal branch that was too small for revascularization Echo with EF 30-35%, global hypokinesis- fitted for lifevest Cardiology following ASA, Plavix, Coreg, Lovenox, statin Bronchitis Possible pneumonia CT chest consistent with bronchitis CT abdomen showed possible bibasilar infiltrates Continue Omnicef Continue mucinex IS Sacral decubitus ulcer Wound care consulted Debility PT/OT History of cervical cancer Cisplatin induced neuropathy CT abdomen with no evidence of recurrence HTN T2DM No acute needs Continue home meds as able DVT ppx: Lovenox Patient was discharged 12/17, elected to appeal discharge as it was late in the day (~4pm) and they didn't feel comfortable going home in the evening. [place] responded yesterday with upholding decision to discharge. Patient informed. DC tomorrow at 11 AM. Critical Care Critically Ill Patient Diagnosis/Problems Diagnosis/Problems (1) Non-ST elevation myocardial infarction (NSTEMI), initial care episode (2) Ventricular tachycardia (3) Cardiomyopathy (4) Acute HFrEF (heart failure with reduced ejection fraction) Status: Acute (5) Primary hypertension (6) Mixed hyperlipidemia (7) Type 2 diabetes mellitus with complication (8) History of cervical cancer Status: Chronic ARIEL FISCHER MD Dec 20, 2021 11:46
[2021-12-20 15:42] VITALS: BP 115/58
[2021-12-20 20:54] VITALS: BP 141/60
[2021-12-20] MEDS: ROSUVASTATIN 20 MG (CRESTOR) TABLET PO SCH (21:11)
[2021-12-21 00:04] VITALS: BP 122/67
[2021-12-21] MEDS: RT-ALBUTEROL SULF 2.5 MG/3 ML PRE-MIX VIAL INH SCH ×2 (02:47→10:09)
[2021-12-21] MEDS: aCETylcysteine 20% (MUCOMYST) 4 ML SOLN VIAL INH SCH ×2 (02:47→10:09)
[2021-12-21 03:59] VITALS: BP 109/65
[2021-12-21] MEDS: MAGNESIUM 1 GM/100 ML IVPB 100 ML IV SCH (06:31)
[2021-12-21] MEDS: POTASSIUM CL 10MEQ/50ML IVPB 50 ML IV SCH (06:31)
[2021-12-21] MEDS: KCL 20 MEQ TAB (K-DUR) PO SCH (06:31)
[2021-12-21] MEDS: inSUlin ASPART (NovoLOG) 1 UNIT/0.01 ML (CHARGE PER UNIT) SC SCH ×2 (06:32→11:31)
[2021-12-21 08:00] VITALS: BP 123/74
--- NOTE | 2021-12-21 08:42 | Cardiology Progress Note ---
Progress Note-Cardiology Events since last exam Date Seen by Provider: Dec 21, 2021 Time Seen by Provider: 08:38 Events since last exam I am following her due to NSTEMI and heart failure with reduced ejection fraction. She was supposed to go home Tuesday but over the weekend had more shortness of breath and discharge was put on hold. She hopes to go home today. She is coughing more today but she feels like her breathing has improved. She denies chest pain, syncope, or palpitations. She has minimal bilateral lower extremity edema. Certain portions of this document may have been dictated utilizing voice recognition technology. Inherent to this technology, typographical and grammatical errors may exist. As much as I am diligent to identify and correct these mistakes, some errors may remain in the document. Vitals Last set of Vitals Signs Vital Signs 12/17/21 12/21/21 12/21/21 12/21/21 08:45 08:00 10:09 10:16 Temp 36.2 Pulse 75 Resp 18 B/P (MAP) 123/74 (90) Pulse Ox 96 O2 Delivery Room Air O2 Flow Rate 2.00 FiO2 21 Exam Vital Signs Vital Signs Date Time Temp Pulse Resp B/P (MAP) Pulse Ox O2 Delivery O2 Flow Rate FiO2 12/21/21 10:16 36.2 75 96 21 12/21/21 10:09 Room Air 12/21/21 08:00 18 123/74 (90) 12/17/21 08:45 2.00 Physical Exam General: Alert. No acute distress. Eye: No xanthelasma. HENT: Normocephalic. Neck: Jugular venous pressure does not appear elevated. Respiratory: Lungs are clear to auscultation. Respirations are non-labored. Breath sounds are equal. Symmetrical chest wall expansion. Cardiovascular: Normal rate. Regular rhythm. Distant S1/S2. 1/6 systolic ejection murmur. No gallop. Trace bilateral pretibial edema. Gastrointestinal: Soft. Normal bowel sounds. Skin: Warm. Dry. Neurologic: Alert and oriented to person, place, time. Cranial nerves 3-11 grossly intact. Bilateral foot drop which is chronic. Psychiatric: Cooperative. Appropriate mood & affect. Labs Laboratory Tests Test 12/20/21 15:48 12/20/21 20:58 12/21/21 05:17 12/21/21 10:46 Range/Units Glucometer 209 H 158 H 169 H 222 H 70-110 MG/DL Diagnosis/Problems Diagnosis/Problems (1) Non-ST elevation myocardial infarction (NSTEMI), initial care episode Assessment & Plan: She had a rise in her troponin consistent with a probable non-ST elevation myocardial infarction. She also has moderate left ventricular systolic dysfunction. Her cardiac catheterization showed severe disease of a small obtuse marginal branch that may have been responsible for the myocardial infarction but this was too small for revascularization. She had mild disease elsewhere. We will continue medical therapy with aspirin, clopidogrel, beta- andry and statin medication. Even though she does not have a coronary stent, dual antiplatelet therapy has a class I indication following an acute myocardial infarction. (2) Cardiomyopathy Assessment & Plan: Her ejection fraction was 30-35% by echocardiogram on 12/13. Given that her cardiac catheterization only showed significant disease in a very small obtuse marginal branch, this is likely nonischemic cardiomyopathy of undetermined etiology. The cardiomyopathy puts her at risk for ventricular arrhythmias and sudden cardiac . She will be discharged with a LifeVest. I will titrate her guideline directed medical therapy as an outpatient. I will not start an aldosterone antagonist at this time because I am concerned about causing hypotension by adding too many medications at once. (3) Acute HFrEF (heart failure with reduced ejection fraction) Status: Acute Assessment & Plan: She likely has some component of acute heart failure with reduced ejection fraction. We will attempt to get her on the appropriate guideline directed medical therapy as above. I will start her on oral Lasix and obtain a follow-up chest x-ray. Her chest x-ray from today still shows pulmonary edema. I will change her losartan over to Entresto. (4) Ventricular tachycardia Assessment & Plan: She was also having some nonsustained ventricular tachycardia in the emergency room. This is concerning in light of the non-ST elevation myocardial infarction. This is another high risk feature. We will continue beta-andry and attempt to titrate her up to the dose she was taking at home as tolerated by her blood pressure. (5) Primary hypertension Assessment & Plan: I resumed carvedilol which she was taking at home although she was on the long-acting version. I have also added losartan for the cardiomyopathy. Given the ongoing evidence of heart failure, I will change losartan over to Entresto. She will need to watch her blood pressure closely following discharge because Entresto can cause hypotension. (6) Mixed hyperlipidemia Assessment & Plan: In light of the non-ST elevation myocardial infarction, I recommend intensive dose statin medication. (7) Type 2 diabetes mellitus with complication Assessment & Plan: This is being managed by the hospitalist. (8) History of cervical cancer Status: Chronic Assessment & Plan: She had a CT of the abdomen and pelvis during this admission that did not show any evidence of recurrence of her cervical cancer. DARRON ROBBINS JR, MD Dec 21, 2021 08:42
[2021-12-21] MEDS ORDERED: FUROSEMIDE 40 MG (LASIX) TAB PO SCH (09:00)
--- NOTE | 2021-12-21 09:12 | Diagnostic Imaging Report ---
INDICATION: Shortness of breath, congestive heart failure. TECHNIQUE: Single view chest 8:52 AM. CORRELATION STUDY: 12/18/2021 FINDINGS: Heart size stable. Vasculature is mildly prominent. No consolidating infiltrate. Question trace effusions. IMPRESSION: 1. Mild edema. Dictated by: Dictated on workstation # [id number]
[2021-12-21] MEDS: CLOPIDOGREL 75 MG (PLAVIX) TABLET PO SCH (09:40)
[2021-12-21] MEDS: ASPIRIN E.C. 81 MG (ECOTRIN) TAB PO SCH (09:40)
[2021-12-21] MEDS: LOSARTAN 25 MG (COZAAR) TAB PO SCH (09:40)
[2021-12-21] MEDS: ENOXAPARIN 40 MG/0.4 ML (LOVENOX) SYR SC SCH (09:41)
[2021-12-21] MEDS: MICONAZOLE 2% POWDER (DESENEX AF) 90 GM TOP SCH (09:45)
[2021-12-21] MEDS: CEFDINIR 300 MG (OMNICEF) CAP PO SCH (09:45)
[2021-12-21] MEDS: guaiFENesin SYRUP 100 MG/5 ML 10 ML (ROBITUSSIN SF) PO PRN (09:49)
[2021-12-21 10:16] VITALS: BP 123/74
[2021-12-21] MEDS ORDERED: SACU1TAB2 PO (10:19)
[2021-12-21 12:00] VITALS: BP 117/57
[2021-12-21 13:32] VITALS: BP 117/57
--- NOTE | 2021-12-21 14:03 | Discharge Summary ---
Discharge Summary Hospital Course Was the Problem List Reviewed?: Yes Problems/Dx: (1) Non-ST elevation myocardial infarction (NSTEMI), initial care episode Status: Acute (2) Cardiomyopathy Status: Acute (3) Acute HFrEF (heart failure with reduced ejection fraction) Status: Acute (4) Ventricular tachycardia Status: Acute (5) Primary hypertension Status: Chronic (6) Mixed hyperlipidemia Status: Chronic (7) Type 2 diabetes mellitus with complication Status: Chronic (8) History of cervical cancer Status: Chronic (9) Bronchitis Status: Acute (10) Decubitus ulcer of sacral area Status: Acute Qualifiers: Qualified Codes: L89.153 - Pressure ulcer of sacral region, stage 3 Hospital Course Date of Admission: Dec 12, 2021 at 22:40 Admission Diagnosis : NSTEMI Family Physician/Provider: Nata Urban Dnp Date of Discharge: 12/21/21 Discharge Diagnosis: NSTEMI, HFrEF, bronchitis Hospital Course: Kemal Mireles is a 71 year old female with PMH HTN, T2DM on insulin, history of cervical cancer, chemotherapy associated neuropathy, who presented with upper respiratory symptoms and was admitted with NSTEMI. She also had bronchitis and possible pneumonia. She received a course of antibiotics and will continue Omnicef at home. Her troponin trended up. Cardiology was consulted. She underwent a left heart cath with one vessel severe disease, but unable to stent due to small caliber vessel. She was optimized medically. She was started on Aspirin, Plavix, and Crestor. She had an echo with newly diagnosed EF 30-35%. She was having non-sustained VTach. She was set up with a LifeVest. She was started on Entresto. She will follow up with Cardiology and her PCP as scheduled. Her course was complicated by sacral decubitus ulcer. She was set up with home health care on discharge. She was disharged home in stable condition. Labs and Pending Lab Test: Laboratory Tests 12/20/21 15:48: Glucometer 209H 12/20/21 20:58: Glucometer 158H 12/21/21 05:17: Glucometer 169H 12/21/21 10:46: Glucometer 222H Microbiology 12/13/21 Gram Stain - Final, Complete 12/13/21 Sputum Culture - Final, Complete Usual upper respiratory kwasi 12/12/21 Urine Culture - Final, Complete Pseudomonas aeruginosa 12/12/21 Blood Culture - Final, Complete Coryneform bacteria Home Meds Active Entresto 24 mg-26 mg Tablet (Sacubitril/Valsartan) 24 Mg-26 Mg Tablet 1 Tab PO BID 30 Days Cefdinir 300 Mg Capsule 300 Mg PO BID Vashe Wound Therapy Solution (Sodium Chlor/Hypochlorous Acid) 0.033 % Irrig.soln 0 Ml IR UD PRN with dressing change Aspirin EC (Aspirin) 81 Mg Tablet.dr 81 Mg PO DAILY Rosuvastatin Calcium 20 Mg Tablet 20 Mg PO HS Clopidogrel (Clopidogrel Bisulfate) 75 Mg Tablet 75 Mg PO DAILY Guaifenesin 100 Mg/5 Ml Liquid 10 Ml PO Q4H PRN Insulin Glargine (Insulin Glargine,Hum.rec.anlog) 100 Unit/Ml Vial 15 Unit SQ 1800 30 Days Your blood sugars have been well controlled in the hospital without insulin, please monitor your blood sugars and if they are consistently above 180 you can resume Levemir. If not please log them for your PCP so he can adjust your regimen as needed. Reported Ondansetron HCl 4 Mg Tablet 4 Mg PO Q6H PRN Bisacodyl 5 Mg Tablet.dr 5 Mg PO Q72H PRN Albuterol Sulfate 2.5 Mg/0.5 Ml Vial.neb 2.5 Mg INH Q6H PRN Tylenol (Acetaminophen) 325 Mg Tablet 650 Mg PO Q6H PRN Cyanocobalamin Injection (Cyanocobalamin) 1,000 Mcg/Ml Inj 1,000 Mcg IM TUES Vitamin D3 (Cholecalciferol (Vitamin D3)) 50 Mcg (2000 Unit) Tab.chew 50 Mcg PO DAILY Magnesium (Magnesium Oxide) 400 Mg Magnesium Tablet 400 Mg PO DAILY Loratadine 10 Mg Tablet 10 Mg PO DAILY Miralax (Polyethylene Glycol 3350) 17 Gram Powd.pack 17 Gm PO DAILY Fluconazole 50 Mg Tablet 50 Mg PO FRI TAKES ONCE WEEKLY ON TUESDAY Culturelle Chewable Tablet (L. Rhamnosus GG/Inulin) 10 Billion Cell-200 Mg Tab.chew 1 Each PO DAILY Carvedilol ER (Carvedilol Phosphate) 20 Mg Cpmp.24hr 20 Mg PO DAILY Calcium + Vit D & K Chew Tab (Ca Carbonate/Vitamin D3/Vit K) 500 Mg Calcium-500 Unit-40 Mcg Tab.chew 1 Each PO DAILY Vitamin C (Ascorbic Acid) 500 Mg Tab.chew 1,500 Mg PO DAILY TAKES 3 (500MG) TABS Assessment/Pt Instructions Take medications as prescribed. Follow up with your PCP and Cardiology. Return with worsening symptoms. Discharge Planning: >30 minutes discharge planning Discharge Instructions Discharge Diet: Low Sodium Diet Activity as Tolerated: Yes Consultations Cardiology Discharge Physical Examination Vital Signs Vital Signs Date Time Temp Pulse Resp B/P (MAP) Pulse Ox O2 Delivery O2 Flow Rate FiO2 12/21/21 13:32 36.8 78 18 117/57 93 Room Air 12/21/21 10:16 21 12/17/21 08:45 2.00 General Appearance: No Apparent Distress, Anxious, Obese Respiratory: Lungs Clear, No Respiratory Distress Cardiovascular: Regular Rate, Rhythm, No Murmur Gastrointestinal: Normal Bowel Sounds, Soft Extremity: Normal Inspection, Pedal Edema Skin: Normal Color, Warm/Dry Neurologic/Psychiatric: Alert, Normal Mood/Affect Allergies: Coded Allergies: Penicillins (Verified Allergy, Severe, SOA, pt has received Ceftriaxone w/o issue, 09/05/19) ciprofloxacin (Verified Allergy, Severe, BURNING SENSATION, 09/04/19) Sulfa (Sulfonamide Antibiotics) (Verified Allergy, Unknown, 09/04/19) bacitracin (Verified Allergy, Unknown, 09/04/19) benazepril (Verified Allergy, Unknown, 09/04/19) nut - unspecified (Verified Allergy, Unknown, 12/14/19) Copy Copies To 1: RUSSELL URBAN DO Discharge Summary Date of Admission Dec 12, 2021 at 22:40 Date of Discharge Dec 21, 2021 at 13:32 Discharge Date: Dec 21, 2021 Discharge Time: 13:32 Admission Diagnosis NSTEMI Consults/Procedures Consulations Cardiology Procedures Left heart cath Discharge Diagnosis NSTEMI Acute HFrEF NSVT Bronchitis Possible pneumonia Sacral decubitus ulcer Debility History of cervical cancer Cisplatin induced neuropathy HTN T2DM (1) Non-ST elevation myocardial infarction (NSTEMI), initial care episode Status: Acute (2) Cardiomyopathy Status: Acute (3) Acute HFrEF (heart failure with reduced ejection fraction) Status: Acute (4) Ventricular tachycardia Status: Acute (5) Primary hypertension Status: Chronic (6) Mixed hyperlipidemia Status: Chronic (7) Type 2 diabetes mellitus with complication Status: Chronic (8) History of cervical cancer Status: Chronic (9) Bronchitis Status: Acute (10) Decubitus ulcer of sacral area Status: Acute Qualifiers: Qualified Codes: L89.153 - Pressure ulcer of sacral region, stage 3 DEE DEE LOWRY MD Dec 21, 2021 13:57
[2021-12-21] MEDS ORDERED: SODI475I IR (18:09)
[2021-12-21] MEDS ORDERED: CEFD300C3 PO (18:09)
[2021-12-21] MEDS ORDERED: CLOP75TA28 PO (18:09)
[2021-12-21] MEDS ORDERED: ROSU20TA32 PO (18:09)
[2021-12-21] MEDS ORDERED: ASPI-1238 PO (18:09)
== END 2021-12-21 13:32 | disposition home health service (06) | DRG 280 ==
LOC: EDUNIT# 20:25 → ER 20:26 → ICU 22:40 → 4TH 12-18 14:25
PROVIDERS: ADMIT Internal Medicine; ATTEND Internal Medicine
PROC: 4A023N7 Measurement of Cardiac Sampling and Pressure, Left Heart, Percutaneous Approach (ICD-10-PCS; principal; 2021-12-15)
PROC: B2111ZZ Fluoroscopy of Multiple Coronary Arteries using Low Osmolar Contrast (ICD-10-PCS; 2021-12-15)
PROC: B2151ZZ Fluoroscopy of Left Heart using Low Osmolar Contrast (ICD-10-PCS; 2021-12-15)
DX: I21.4 Non-ST elevation (NSTEMI) myocardial infarction (principal); L89.153 Pressure ulcer of sacral region, stage 3; I50.21 Acute systolic (congestive) heart failure; J18.9 Pneumonia, unspecified organism; N39.0 Urinary tract infection, site not specified; I47.2 Ventricular tachycardia; E44.1 Mild protein-calorie malnutrition; I25.10 Atherosclerotic heart disease of native coronary artery without angina pectoris; Z20.822 Contact with and (suspected) exposure to COVID-19; I11.0 Hypertensive heart disease with heart failure; I25.5 Ischemic cardiomyopathy; J20.9 Acute bronchitis, unspecified; I45.10 Unspecified right bundle-branch block; G62.2 Polyneuropathy due to other toxic agents; T45.1X5S Adverse effect of antineoplastic and immunosuppressive drugs, sequela; Z68.29 Body mass index [BMI] 29.0-29.9, adult; B37.2 Candidiasis of skin and nail; R32 Unspecified urinary incontinence; E11.9 Type 2 diabetes mellitus without complications; R15.9 Full incontinence of feces; E83.42 Hypomagnesemia; E78.2 Mixed hyperlipidemia; G40.909 Epilepsy, unspecified, not intractable, without status epilepticus; Z87.820 Personal history of traumatic brain injury; Z85.41 Personal history of malignant neoplasm of cervix uteri; Z79.4 Long term (current) use of insulin; Z88.0 Allergy status to penicillin; Z88.2 Allergy status to sulfonamides; Z88.8 Allergy status to other drugs, medicaments and biological substances; Z88.1 Allergy status to other antibiotic agents; Z91.018 Allergy to other foods
CPT/HCPCS: 36415; 51701; 71045; 71275; 74177; 80048; 80053; 80061; 81000; 82010; 82550; 82553; 82947; 83036; 83605; 83615; 83735; 83874; 83880; 84100; 84132; 84145; 84443; 84484; 85007; 85025; 85027; 85379; 85610; 85652; 85730; 86141; 87040; 87070; 87077; 87088; 87186; 87205; 87636; 93005; 93041; 93306; 93458; 94640; 94760; 94761; 96365; 96372; 96375

== ENCOUNTER → 2022-03-26 | Outpatient (CLI) | payer MEDICARE, OTHER ==
[~2022-03-26] MED LIST changes: +ACET325T38 PO; +ALB0.5V INH; +ALBU8.5H6 IH; +ASCO500T71 PO; +ASPI-1238 PO; +BISA5TAB20 PO; +CA C1TAB66 PO; +CHOL200078 PO; +CLOP75TA28 PO; +CNC1KV IM; +GUAI100L13 PO; +INSU100V52 SQ; +L. R1TAB PO; +LORA10TA7 PO; +LOSA25TA41 PO; +ONDA-105 PO; +POLY17PO6 PO; +ROSU20TA32 PO; -RT-ALBUINH IH; +SACU1TAB2 PO; +SODI475I IR
[2022-03-26 12:53] LABS: HEMATOCRIT 28 % (35-52); HEMOGLOBIN 9.3 g/dL (11.5-16.0); MEAN CORPUSCULAR HEMOGLOBIN 30 pg (25-34); MEAN CORPUSCULAR HGB CONC 33 g/dL (32-36); MEAN CORPUSCULAR VOLUME 90 fL (80-99); MEAN PLATELET VOLUME 8.8 fL (9.0-12.2); PLATELET COUNT 160 10^3/uL (130-400); WHITE BLOOD COUNT 3.1 10^3/uL (4.3-11.0)
[2022-03-26 13:00] LABS: PROTHROMBIN TIME PATIENT 13.4 SEC (12.2-14.7)
== END ==
LOC: LABNPT 12:14
PROVIDERS: ATTEND Internal Medicine
DX: I50.9 Heart failure, unspecified (principal); I45.10 Unspecified right bundle-branch block
CPT/HCPCS: 85027; 85610; 85730

== ENCOUNTER → 2022-06-23 | Outpatient (CLI) | payer MEDICARE, OTHER ==
[2022-06-23 11:25] LABS: BASOPHILS % (AUTO) 0 % (0-10); EOSINOPHILS # (AUTO) 0.3 10^3/uL (0.0-0.3); EOSINOPHILS % (AUTO) 6 % (0-10); HEMATOCRIT 31 % (35-52); HEMOGLOBIN 10.2 g/dL (11.5-16.0); LYMPHOCYTES # (AUTO) 0.9 10^3/uL (1.0-4.0); LYMPHOCYTES % (AUTO) 19 % (12-44); MEAN CORPUSCULAR HEMOGLOBIN 29 pg (25-34); MEAN CORPUSCULAR HGB CONC 33 g/dL (32-36); MEAN CORPUSCULAR VOLUME 89 fL (80-99); MEAN PLATELET VOLUME 8.2 fL (9.0-12.2); MONOCYTES # (AUTO) 0.3 10^3/uL (0.0-1.0); MONOCYTES % (AUTO) 6 % (0-12); NEUTROPHILS # (AUTO) 3.1 10^3/uL (1.8-7.8); NEUTROPHILS % (AUTO) 69 % (42-75); PLATELET COUNT 175 10^3/uL (130-400); WHITE BLOOD COUNT 4.5 10^3/uL (4.3-11.0)
[2022-06-23 11:44] LABS: ERYTHROCYTE SEDIMENTATION RATE 101 MM/HR (0-30)
[2022-06-23 11:52] LABS: ALBUMIN 3.1 GM/DL (3.2-4.5); BILIRUBIN,TOTAL 0.6 MG/DL (0.1-1.0); CALCIUM 9.3 MG/DL (8.5-10.1); CREATININE SERUM 0.73 MG/DL (0.60-1.30); POTASSIUM 4.1 MMOL/L (3.6-5.0); TOTAL PROTEIN 6.9 GM/DL (6.4-8.2)
== END ==
LOC: WOUNDCARE 09:47
PROVIDERS: ATTEND Family Medicine
DX: L89.153 Pressure ulcer of sacral region, stage 3 (principal); L59.9 Disorder of the skin and subcutaneous tissue related to radiation, unspecified; E11.622 Type 2 diabetes mellitus with other skin ulcer; D46.4 Refractory anemia, unspecified; M62.81 Muscle weakness (generalized); E66.01 Morbid (severe) obesity due to excess calories
CPT/HCPCS: 11042; 80053; 82306; 82607; 82728; 82746; 83036; 83540; 83550; 85025; 85652; 86141; G0463; 36415

== ENCOUNTER 2022-07-01 06:20 | Emergency (ER) | payer MEDICARE, OTHER ==
[~2022-07-01] VITALS: Ht 165 cm; Wt 113.0 kg
[2022-07-01 06:30] VITALS: BP 184/72
[2022-07-01] MEDS ORDERED: CEFD300C3 PO (06:32)
--- NOTE | 2022-07-01 06:32 | ED GU-Female ---
General Stated Complaint: BLOOD IN URINE Source: patient, EMS, old records Exam Limitations: no limitations History of Present Illness Date Seen by Provider: Jul 01, 2022 Time Seen by Provider: 06:20 Initial Comments 72yoF with PMH of HTN, T2DM on insulin, history of cervical cancer s/p chemotherapy associated neuropathy coming in via EMS from home due to painful burning with urination and hematuria that started yesterday. She states these are consistent with symptoms she gets when she gets a bladder infection. She gets them quite frequently. She is on maintenance dose of Macrobid. She states the last time she had an infection, it was resistant to Macrobid and she was told it was sensitive to ceftriaxone. She states cefdinir typically takes care of her infection. Having some very mild suprapubic discomfort she states, no nausea, vomiting, diarrhea, focal weakness or numbness, fever, chills, chest pain, shortness of breath, or any other concerns. Allergies and Home Medications Allergies Coded Allergies: Penicillins (Verified Allergy, Severe, SOA, pt has received Ceftriaxone w/o issue, 09/05/19) ciprofloxacin (Verified Allergy, Severe, BURNING SENSATION, 09/04/19) Sulfa (Sulfonamide Antibiotics) (Verified Allergy, Unknown, 09/04/19) bacitracin (Verified Allergy, Unknown, 09/04/19) benazepril (Verified Allergy, Unknown, 09/04/19) nut - unspecified (Verified Allergy, Unknown, 12/14/19) Patient Home Medication List Home Medication List Reviewed: Yes Acetaminophen (Tylenol) 325 Mg Tablet, 650 MG PO Q6H PRN for PAIN-MILD (1-4) OR TEMPATURE, (Reported) Entered as Reported by: KOKO LAZO on 12/14/211115 Albuterol Sulfate (Albuterol Sulfate) 2.5 Mg/0.5 Ml Vial.neb, 2.5 MG INH Q6H PRN for SHORTNESS OF BREATH, (Reported) Entered as Reported by: KOKO LAZO on 12/14/21 111 Ascorbic Acid (Vitamin C) 500 Mg Tab.chew, 1,500 MG PO DAILY, (Reported) Entered as Reported by: KOKO LAZO on 12/14/21 111 Aspirin (Aspirin EC) 81 Mg Tablet.dr, 81 MG PO DAILY Prescribed by: DEE DEE LOWRY on 12/21/211808 Bisacodyl (Bisacodyl) 5 Mg Tablet.dr, 5 MG PO Q72H PRN for CONSTIPATION-5TH LINE, (Reported) Entered as Reported by: KOKO LAZO on 12/14/211115 Ca Carbonate/Vitamin D3/Vit K (Calcium + Vit D & K Chew Tab) 500 Mg Calcium-500 Unit-40 Mcg Tab.chew, 1 EACH PO DAILY, (Reported) Entered as Reported by: KOKO LAZO on 12/14/211115 Carvedilol Phosphate (Carvedilol ER) 20 Mg Cpmp.24hr, 20 MG PO DAILY, (Reported) Entered as Reported by: KOKO LAZO on 12/14/211115 Cefdinir (Cefdinir) 300 Mg Capsule, 300 MG PO BID Prescribed by: DEE DEE LOWRY on 12/21/211808 Cefdinir (Cefdinir) 300 Mg Capsule, 300 MG PO BID Prescribed by: SANJEEV ROBERTS on 07/01/22 0632 Cholecalciferol (Vitamin D3) (Vitamin D3) 50 Mcg (2000 Unit) Tab.chew, 50 MCG PO DAILY, (Reported) Entered as Reported by: KOKO LAZO on 12/14/211115 Clopidogrel Bisulfate (Clopidogrel) 75 Mg Tablet, 75 MG PO DAILY Prescribed by: DEE DEE LOWRY on 12/21/211808 Cyanocobalamin (Cyanocobalamin Injection) 1,000 Mcg/Ml Inj, 1,000 MCG IM TUES, (Reported) Entered as Reported by: KOKO LAZO on 12/14/211115 Fluconazole (Fluconazole) 50 Mg Tablet, 50 MG PO FRI, (Reported) Entered as Reported by: KOKO LAZO on 12/14/211115 Guaifenesin (Guaifenesin) 100 Mg/5 Ml Liquid, 10 ML PO Q4H PRN for COUGH Prescribed by: ARIEL FISCHER on 12/17/21 145 Insulin Glargine,Hum.rec.anlog (Insulin Glargine) 100 Unit/Ml Vial, 15 UNIT SQ 1800 Prescribed by: ARIEL FISCHER on 12/17/211455 L. Rhamnosus GG/Inulin (Culturelle Chewable Tablet) 10 Billion Cell-200 Mg Tab.chew, 1 EACH PO DAILY, (Reported) Entered as Reported by: KOKO LAZO on 12/14/21 111 Loratadine (Loratadine) 10 Mg Tablet, 10 MG PO DAILY, (Reported) Entered as Reported by: KOKO LAZO on 12/14/21 111 Magnesium Oxide (Magnesium) 400 Mg Magnesium Tablet, 400 MG PO DAILY, (Reported) Entered as Reported by: KOKO LAZO on 12/14/21 111 Ondansetron HCl (Ondansetron HCl) 4 Mg Tablet, 4 MG PO Q6H PRN for NAUSEA/VOMITI NG-1ST LINE, (Reported) Entered as Reported by: KOKO LAZO on 12/14/21 111 Polyethylene Glycol 3350 (Miralax) 17 Gram Powd.pack, 17 GM PO DAILY, (Reported) Entered as Reported by: KOKO LAZO on 12/14/21 111 Rosuvastatin Calcium (Rosuvastatin Calcium) 20 Mg Tablet, 20 MG PO HS Prescribed by: DEE DEE LOWRY on 12/21/21 180 Sacubitril/Valsartan (Entresto 24 mg-26 mg Tablet) 24 Mg-26 Mg Tablet, 1 TAB PO BID Prescribed by: DEE DEE LOWRY on 12/21/21 1019 Sodium Chlor/Hypochlorous Acid (Vashe Wound Therapy Solution) 0.033 % Irrig.soln, 0 ML IR UD PRN for DIAPER CHANGE Prescribed by: DEE DEE LOWRY on 12/21/211808 Review of Systems Review of Systems Constitutional: No fever EENTM: no symptoms reported Respiratory: no symptoms reported Cardiovascular: no symptoms reported Gastrointestinal: no symptoms reported Genitourinary: see HPI Musculoskeletal: no symptoms reported Skin: no symptoms reported Past Lqrejxw-[id number]-Yrdbdu Hx Patient Social History Tobacco Use?: No Immunizations Up To Date First/Initial COVID19 Vaccinat: 05/13/2020 Second COVID19 Vaccination Yuri: 06/02/2020 Third COVID19 Vaccination Date: 03/16/2021 Seasonal Allergies Seasonal Allergies: Yes Past Medical History Surgery/Hospitalization HX: INCISIONAL HERNIA REPAIR ( SITE OF PRIOR OPEN CHOLECYSTECTOMY) 2019 CHOLECYSTECTOMY 1976 APPENDECTOMY BLEPHAROPLASTY TONSILLECTOMY Tonsilectomy 195 Cervical CA at [id number] Surgeries: Yes (BRACHYTHERAPY-CERVIX, eyelid lifted) Abdominal, Appendectomy, Gallbladder, Tonsillectomy Respiratory: Yes (gets SOB with exercise) Cardiac: Yes (RBBB) Hypertension Neurological: Yes (seizures 40+ years ago; CHEMO-INDUCED NEUROPATHY) Neuropathy, Seizure Disorder, Traumatic Brain Injury Reproductive Disorders: Yes (CERVICAL CANCER) 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 Sexually Transmitted Disease: No HIV/AIDS: No Genitourinary: No Gastrointestinal: Yes (INCISIONAL HERNIA REPAIR; OPEN CHOLECYSTECTOMY) Abdominal Hernia, Gall Bladder Disease Musculoskeletal: Yes (GENERALIZED WEAKNESS/NON-AMBULATORY) Endocrine: Yes Diabetes, Insulin dep HEENT: No Cancer: Yes Cervical Did You Recieve Any Treatments: Yes What Type of Treatment Did You: Chemotherapy, Radiation Psychosocial: No Integumentary: Yes (SACRAL DECUBITUS ULCER) Blood Disorders: No Family Medical History Cardiovascular disease 19 FATHER Diabetes mellitus 19 FATHER G8 BROTHER Respiratory disorder 19 MOTHER Physical Exam Vital Signs Vital Signs - First Documented 07/01/22 06:30 Temp 36.7 Pulse 70 Resp 16 B/P (MAP) 184/72 (109) Capillary Refill : Height, Weight, BMI Height: '" Weight: lbs. oz. kg; 29.27 BMI Method: General Appearance: WD/WN, no apparent distress HEENT: PERRL/EOMI, normal ENT inspection, pharynx normal Neck: non-tender, full range of motion, supple, normal inspection Cardiovascular: regular rate, rhythm, no murmur Respiratory: chest non-tender, lungs clear, normal breath sounds, no respiratory distress, no accessory muscle use Gastrointestinal: normal bowel sounds, non tender, soft; No distended, No guarding, No rebound Back: normal inspection, no CVA tenderness Extremities: normal range of motion, non-tender, no calf tenderness, normal capillary refill, pedal edema Neurologic/Psychiatric: no motor/sensory deficits, alert, normal mood/affect, oriented x 3 Skin: normal color, warm/dry Progress/Results/Core Measures Suspected Sepsis SIRS Temperature: Pulse: Respiratory Rate: Blood Pressure / Mean: Results/Orders Lab Results Laboratory Tests Test 07/01/22 06:28 Range/Units Urine Color DARK YELLOW Urine Clarity CLOUDY Urine pH 6.0 5-9 Urine Specific [place] 1.010 L 1.016-1.022 Urine Protein 1+ H NEGATIVE Urine Glucose (UA) NEGATIVE NEGATIVE Urine Ketones NEGATIVE NEGATIVE Urine Nitrite NEGATIVE NEGATIVE Urine Bilirubin NEGATIVE NEGATIVE Urine Urobilinogen 0.2 < = 1.0 MG/DL Urine Leukocyte Esterase 3+ H NEGATIVE Urine RBC (Auto) 3+ H NEGATIVE Urine RBC >100 H /HPF Urine WBC >100 H /HPF Urine Squamous Epithelial Cells RARE /HPF Urine Renal Epithelial Cells 0-2 /HPF Urine Crystals NONE /LPF Urine Bacteria FEW H /HPF Urine Casts NONE /LPF Urine Mucus SMALL H /LPF Urine Culture Indicated YES My Orders Orders - SANJEEV ROBERTS MD Ua Culture If Indicated (07/01/22 06:23) Ceftriaxone (Rocephin) (07/01/22 06:45) Lidocaine 1% Inj 20 Ml (Xylocaine 1% Inj (07/01/22 06:45) Urine Culture (07/01/22 06:28) Medications Given in ED Current Medications Medications Dose Ordered Sig/Jorge A Route Start Time Stop Time Status Last Admin Dose Admin Ceftriaxone Sodium 1,000 mg ONCE ONCE IM 07/01/22 06:45 07/01/22 06:46 DC 07/01/22 06:54 1,000 MG Lidocaine HCl 2.1 ml ONCE ONCE INJ 07/01/22 06:45 07/01/22 06:46 DC 07/01/22 06:54 2.1 ML Vital Signs/I&O 07/01/22 06:30 Temp 36.7 Pulse 70 Resp 16 B/P (MAP) 184/72 (109) Capillary Refill : Progress Note : Progress Note 72-year-old female presenting for symptoms she states of cystitis. ABCs were intact and vitals were stable on presentation. I reviewed the patient's chart, this is consistent with previous episodes of cystitis. She has previously grown out Klebsiella which was resistant to Macrobid and sensitive to ceftriaxone. She is also previously grown out pansensitive Pseudomonas. UA today consistent with cystitis. We will give her a dose of IM ceftriaxone here follow-up with a prescription for cefdinir. I believe she is otherwise stable for discharge with outpatient follow-up. She was sent home with strict return precautions Of note, patient is 100% bedbound and unable to sit up in a chair. Also has a decubitus ulcer that is managed by wound care that cannot be in certain positions. She will need EMS transport back to home. Departure Impression Primary Impression: Cystitis Disposition: HOME, SELF-CARE Condition: Stable Departure-Patient Inst. Decision time for Depature: 07:00 Referrals: RUSSELL OSORIO DO (PCP) Primary Care Physician OBINNA OSORIO DNP (Family) Primary Care Physician Patient Instructions: Acute Cystitis (DC) Add. Discharge Instructions: Your bladder does look infected. You will be on antibiotics for the next 10 days. Take the next dose tomorrow since you got a 24 hour dose in your muscle today. Follow-up with your regular doctor if symptoms or not improving. Scripts Cefdinir (Cefdinir) 300 Mg Capsule 300 MG PO BID for 10 Days, #20 CAP 0 Refills Prov: SANJEEV ROBERTS MD 07/01/22 SANJEEV ROBERTS MD Jul 01, 2022 06:32
[2022-07-01 06:37] LABS: BILIRUBIN,URINE NEGATIVE (NEGATIVE); CLARITY,URINE CLOUDY; GLUCOSE, URINE (UA) NEGATIVE (NEGATIVE); KETONES,URINE NEGATIVE (NEGATIVE); LEUKOCYTE ESTERASE ,URINE 3+ (NEGATIVE); NITRITE,URINE NEGATIVE (NEGATIVE); PROTEIN,URINE 1+ (NEGATIVE)
[2022-07-01 06:45] LABS: COLOR,URINE DARK YELLOW; RBC,URINE >100 /HPF; WBC,URINE >100 /HPF
[2022-07-01] MEDS ORDERED: LIDOCAINE 1% INJ 20 ML VIAL INJ ONE (06:45)
[2022-07-01] MEDS ORDERED: cefTRIAXone 1,000 MG VIAL IM ONE (06:45)
[2022-07-01 06:46] LABS: BACTERIA,URINE FEW /HPF; RENAL EPITHELIAL CELLS,URINE 0-2 /HPF; SQUAMOUS EPITHELIAL CELL,UR RARE /HPF
== END 2022-07-01 07:26 | disposition home or self-care (01) ==
LOC: EDUNIT# 06:20 → ER FS 06:21
DX: N30.91 Cystitis, unspecified with hematuria (principal); E11.40 Type 2 diabetes mellitus with diabetic neuropathy, unspecified; C76.0 Malignant neoplasm of head, face and neck; Z79.4 Long term (current) use of insulin; Z88.1 Allergy status to other antibiotic agents
CPT/HCPCS: 81000; 87077; 87088; 87186; 99284

== ENCOUNTER → 2022-07-07 | Outpatient (CLI) | payer MEDICARE, OTHER ==
--- NOTE | 2022-07-07 16:09 | Diagnostic Imaging Report ---
HISTORY: Sacral wound, osteomyelitis. TECHNIQUE: Three views of the sacrum and coccyx. COMPARISON: 12/13/2021. FINDINGS: The coccyx appears to be absent, as seen on the prior CT. No cortical erosion or periosteal reaction is seen in the sacrum. There are advanced degenerative changes in the lower lumbar spine. Bilateral sacroiliac joints are patent. IMPRESSION: Chronic absence of the coccyx. No radiographic findings of osteomyelitis are seen. Dictated by: Dictated on workstation # [id number]
== END ==
LOC: WOUNDCARE 11:20
PROVIDERS: ATTEND Family Medicine
DX: L89.153 Pressure ulcer of sacral region, stage 3 (principal); E11.622 Type 2 diabetes mellitus with other skin ulcer; E66.01 Morbid (severe) obesity due to excess calories; L59.9 Disorder of the skin and subcutaneous tissue related to radiation, unspecified; D46.4 Refractory anemia, unspecified; M62.81 Muscle weakness (generalized); E11.52 Type 2 diabetes mellitus with diabetic peripheral angiopathy with gangrene; I96 Gangrene, not elsewhere classified
CPT/HCPCS: 11042; 72220; G0463

== ENCOUNTER → 2022-08-02 | Outpatient (CLI) | payer MEDICARE, OTHER | LOC: WOUNDCARE 13:05 | PROVIDERS: ATTEND Family Medicine | DX: L89.153 Pressure ulcer of sacral region, stage 3 (principal); L59.8 Other specified disorders of the skin and subcutaneous tissue related to radiation; E11.622 Type 2 diabetes mellitus with other skin ulcer; D46.4 Refractory anemia, unspecified; E66.01 Morbid (severe) obesity due to excess calories; M62.81 Muscle weakness (generalized); E11.52 Type 2 diabetes mellitus with diabetic peripheral angiopathy with gangrene; I96 Gangrene, not elsewhere classified | CPT/HCPCS: 17250; G0463 ==

== ENCOUNTER → 2022-08-25 | Outpatient (CLI) | payer MEDICARE, OTHER | LOC: WOUNDCARE 10:59 | PROVIDERS: ATTEND Family Medicine | DX: I96 Gangrene, not elsewhere classified (principal); L89.153 Pressure ulcer of sacral region, stage 3; L59.9 Disorder of the skin and subcutaneous tissue related to radiation, unspecified; E11.622 Type 2 diabetes mellitus with other skin ulcer; D46.4 Refractory anemia, unspecified; M62.81 Muscle weakness (generalized); M62.3 Immobility syndrome (paraplegic); E66.01 Morbid (severe) obesity due to excess calories | CPT/HCPCS: 17250; A6212; G0463 ==

== ENCOUNTER 2022-10-31 18:50 | Inpatient (IN) | payer MEDICARE, OTHER ==
[~2022-10-31] VITALS: Ht 165 cm; Wt 97.4 kg
--- NOTE | 2022-10-31 19:11 | ED General ---
General Chief Complaint: General Problems/Pain Stated Complaint: WOUNDS Source of Information: Patient History of Present Illness Date Seen by Provider: Oct 31, 2022 Time Seen by Provider: 18:44 Initial Comments PT ARRIVES VIA EMS FROM [place] PT WITH MULTIPLE COMPLAINTS--ALL CHRONIC AND NO DIFFERENT TODAY IN ANY WAY PT STATES SHE HAS "TUNNELING WOUNDS' OF HER COCCYX--SEES DR. SESAY WITH WOUND CARE FOR THIS PROBLEM C/O CHRONIC UTI'S--STATES CEFDINIR CLEARS THEM UP AND THEN THEY COME RIGHT BACK C/O IMMOBILITY--CHRONIC PROBLEM, STATES SHE HAS NEUROPATHY PT IS INSULIN DEPENDENT DIABETIC, SHE HAS CHRONIC LYMPHEDEMA, CAD, CARDIOMYOPATHY STATES SHE CALLED DR. OSORIO'S OFFICE ON TUESDAY AND THEY TOLD HER TO GO TO ER AND GET ADMITTED TO THE HOSPITAL, SO [facility] AND HAD THEM BRING HER HERE FROM [place] PT STATES SHE HAS NOT SEEN DR. OSORIO IN A LONG TIME--SHE DOES "TELEHEALTH VISITS" BUT HAS NOT HAD ONE RECENTLY SHE SEES DR. SESAY IN WOUND CARE HERE, AND STATES THAT SHE CALLS THE AMBULANCE IN [place] TO TAKE HER TO ALL OF HER DR APPOINTMENTS, STATES SHE HAS BEEN TOLD BY DR. SESAY THAT SHE NEEDS TO GO TO [facility]IA [facility], BUT SHE HAS NOT ATTEMPTED TO DO THAT AT ANY TIME. PCP: DR. OSORIO WOUND CARE: DR. SESAY CARDIOLOGY--WAS SEEING , BUT HE HAS LEFT THE AREA SEVERAL MONTHS AGO Allergies and Home Medications Allergies Coded Allergies: Penicillins (Verified Allergy, Severe, SOA, pt has received Ceftriaxone w/o issue, 09/05/19) ciprofloxacin (Verified Allergy, Severe, BURNING SENSATION, 09/04/19) Sulfa (Sulfonamide Antibiotics) (Verified Allergy, Unknown, 09/04/19) bacitracin (Verified Allergy, Unknown, 09/04/19) benazepril (Verified Allergy, Unknown, 09/04/19) nut - unspecified (Verified Allergy, Unknown, 12/14/19) Patient Home Medication List Home Medication List Reviewed: Yes Acetaminophen (Tylenol) 325 Mg Tablet, 650 MG PO Q6H PRN for PAIN-MILD (1-4) OR TEMPATURE, (Reported) Entered as Reported by: KOKO LAZO on 12/14/21 1116 Albuterol Sulfate (Albuterol Sulfate) 2.5 Mg/0.5 Ml Vial.neb, 2.5 MG INH Q6H PRN for SHORTNESS OF BREATH, (Reported) Entered as Reported by: KOKO LAZO on 12/14/211115 Ascorbic Acid (Vitamin C) 500 Mg Tab.chew, 1,500 MG PO DAILY, (Reported) Entered as Reported by: KOKO LAZO on 12/14/211115 Aspirin (Aspirin EC) 81 Mg Tablet.dr, 81 MG PO DAILY Prescribed by: DEE DEE LOWRY on 12/21/211808 Bisacodyl (Bisacodyl) 5 Mg Tablet.dr, 5 MG PO Q72H PRN for CONSTIPATION-5TH LI NE, (Reported) Entered as Reported by: KOKO LAZO on 12/14/211115 Ca Carbonate/Vitamin D3/Vit K (Calcium + Vit D & K Chew Tab) 500 Mg Calcium-500 Unit-40 Mcg Tab.chew, 1 EACH PO DAILY, (Reported) Entered as Reported by: KOKO LAZO on 12/14/211115 Carvedilol Phosphate (Carvedilol ER) 20 Mg Cpmp.24hr, 20 MG PO DAILY, (Reported) Entered as Reported by: KOKO LAZO on 12/14/211115 Cefdinir (Cefdinir) 300 Mg Capsule, 300 MG PO BID Prescribed by: DEE DEE LOWRY on 12/21/211808 Cefdinir (Cefdinir) 300 Mg Capsule, 300 MG PO BID Prescribed by: SANJEEV ROBERTS on 07/01/22 0632 Cholecalciferol (Vitamin D3) (Vitamin D3) 50 Mcg (2000 Unit) Tab.chew, 50 MCG PO DAILY, (Reported) Entered as Reported by: KOKO LAZO on 12/14/211115 Clopidogrel Bisulfate (Clopidogrel) 75 Mg Tablet, 75 MG PO DAILY Prescribed by: DEE DEE LOWRY on 12/21/211808 Cyanocobalamin (Cyanocobalamin Injection) 1,000 Mcg/Ml Inj, 1,000 MCG IM TUES, (Reported) Entered as Reported by: KOKO LAZO on 12/14/211115 Fluconazole (Fluconazole) 50 Mg Tablet, 50 MG PO FRI, (Reported) Entered as Reported by: KOKO LAZO on 8/8/22 1116 Guaifenesin (Guaifenesin) 100 Mg/5 Ml Liquid, 10 ML PO Q4H PRN for COUGH Prescribed by: ARIEL FISCHER on 12/17/21 1456 Insulin Glargine,Hum.rec.anlog (Insulin Glargine) 100 Unit/Ml Vial, 15 UNIT SQ 1800 Prescribed by: ARIEL FISCHER on 12/17/21 145 L. Rhamnosus GG/Inulin (Culturelle Chewable Tablet) 10 Billion Cell-200 Mg Tab.chew, 1 EACH PO DAILY, (Reported) Entered as Reported by: KOKO LAZO on 12/14/21 111 Loratadine (Loratadine) 10 Mg Tablet, 10 MG PO DAILY, (Reported) Entered as Reported by: KOKO LAZO on 12/14/21 111 Magnesium Oxide (Magnesium) 400 Mg Magnesium Tablet, 400 MG PO DAILY, (Reported) Entered as Reported by: KOKO LAZO on 12/14/21 111 Ondansetron HCl (Ondansetron HCl) 4 Mg Tablet, 4 MG PO Q6H PRN for NAUSEA/VOMITING-1ST LINE, (Reported) Entered as Reported by: KOKO LAZO on 12/14/21 111 Polyethylene Glycol 3350 (Miralax) 17 Gram Powd.pack, 17 GM PO DAILY, (Reported) Entered as Reported by: KOKO LAZO on 12/14/21 111 Rosuvastatin Calcium (Rosuvastatin Calcium) 20 Mg Tablet, 20 MG PO HS Prescribed by: DEE DEE LOWRY on 12/21/211808 Sacubitril/Valsartan (Entresto 24 mg-26 mg Tablet) 24 Mg-26 Mg Tablet, 1 TAB PO BID Prescribed by: DEE DEE LOWRY on 12/21/21 101 Sodium Chlor/Hypochlorous Acid (Vashe Wound Therapy Solution) 0.033 % Irrig.soln, 0 ML IR UD PRN for DIAPER CHANGE Prescribed by: DEE DEE LOWRY on 12/21/211808 Review of Systems Review of Systems Constitutional: No fever; malaise, weakness Respiratory: No short of breath Cardiovascular: edema Gastrointestinal: no symptoms reported Genitourinary: see HPI Musculoskeletal: see HPI Skin: see HPI Psychiatric/Neurological: See HPI Hematologic/Lymphatic: No Symptoms Reported Immunological/Allergic: no symptoms reported Past Xjldzeb-Vehksc-Xsyonc Hx Immunizations Up To Date First/Initial COVID19 Vaccinat: 05/13/2020 Second COVID19 Vaccination Yuri: 06/02/2020 Third COVID19 Vaccination Date: 03/16/2021 Seasonal Allergies Seasonal Allergies: Yes Past Medical History Surgery/Hospitalization HX: INCISIONAL HERNIA REPAIR ( SITE OF PRIOR OPEN CHOLECYSTECTOMY) 2019 CHOLECYSTECTOMY 1975 APPENDECTOMY BLEPHAROPLASTY TONSILLECTOMY Tonsilectomy 1955 Cervical CA at --TREATED WITH BRACHYTHERAPY AND CHEMO CARDIAC CATH 12/15/21 BY : RESULTS: HEMODYNAMICS: The aortic pressure was 74/43 mmHg. The left ventricular pressure was 82/0 mmHg with a left ventricular end-diastolic pressure of 4 mmHg. There was no significant pressure gradient upon pullback across aortic valve. CORONARY ANGIOGRAPHY: The left coronary system was moderately calcified. Left main coronary artery: Free of significant disease. Left anterior descending coronary artery: Free of significant disease. Left circumflex coronary artery: Free of significant disease. There was a 90% stenosis in the ostium of a small second obtuse marginal branch with ANNA MARIE-3 flow. This may have been the ischemia related vessel for the non-ST elevation myocardial infarction but this is approximately a 1.5 mm vessel and would be too small for revascularization. Right coronary artery: Dominant and there was a 40% stenosis in the midsegment at the takeoff of the right ventricular branch with ANNA MARIE-3 flow. IMPRESSION: 1. Low systemic blood pressure and left ventricular end-diastolic pressure. 2. There was mild disease in the mid segment of the dominant right coronary artery and severe disease in a small second obtuse marginal branch. The disease in the second obtuse marginal branch may have been responsible for the non-ST elevation myocardial infarction but this branch is too small for revascularization. 3. The patient is known to have moderate left ventricular systolic dysfunction with an estimated ejection fraction of 30-35% by echocardiogram that was obtained on 12/13/2021. Surgeries: Yes (BRACHYTHERAPY-CERVIX, eyelid lifted) Abdominal, Appendectomy, Gallbladder, Tonsillectomy Respiratory: Yes (gets SOB with exercise) Cardiac: Yes (RBBB) Cardiomyopathy, Chronic Edema/Swelling, Coronary Artery Disease, Hypertension Neurological: Yes (seizures 40+ years ago; CHEMO-INDUCED NEUROPATHY; NON- MOBILE) Neuropathy, Seizure Disorder, Traumatic Brain Injury Reproductive Disorders: Yes (CERVICAL CANCER) MEDIA AID History: Menopausal Sexually Transmitted Disease: No HIV/AIDS: No Genitourinary: Yes UTI-Chronic Gastrointestinal: Yes (INCISIONAL HERNIA REPAIR; OPEN CHOLECYSTECTOMY) Abdominal Hernia, Gall Bladder Disease Musculoskeletal: Yes (GENERALIZED WEAKNESS/NON-AMBULATORY) Foot Drop Endocrine: Yes Diabetes, Insulin dep HEENT: No Cancer: Yes Cervical Did You Recieve Any Treatments: Yes What Type of Treatment Did You: Chemotherapy, Radiation Psychosocial: No Integumentary: Yes (SACRAL DECUBITUS ULCER) Blood Disorders: No Family Medical History Cardiovascular disease 19 FATHER Diabetes mellitus 19 FATHER G8 BROTHER Respiratory disorder 19 MOTHER Physical Exam Vital Signs Vital Signs - First Documented 10/31/22 10/31/22 18:50 20:22 Temp 36.8 Pulse 73 Resp 16 B/P (MAP) 168/79 (108) Pulse Ox 97 O2 Delivery Room Air Capillary Refill : Height, Weight, BMI Height: '" Weight: lbs. oz. kg; 41.00 BMI Method: General Appearance: No Apparent Distress, WD/WN, Obese HEENT: PERRL/EOMI Neck: Normal Inspection Respiratory: Normal Breath Sounds, No Accessory Muscle Use, No Respiratory Distress Cardiovascular: Regular Rate, Rhythm Gastrointestinal: Non Tender Back: No CVA Tenderness, Other (SACRAL DECUBITUS ULCER WITH PURULENT DRAINAGE. UNABLE TO DETERMINE DEPTH) Extremity: Pedal Edema (4+ EDEMA BILATERALLY. ) Neurologic/Psychiatric: Alert, Oriented x3, Normal Mood/Affect, dynamic balancer II-XII Norm as Tested, Other (DECREASED SENSATION AND LIMITED MOVEMENT OF LEGS. ) Skin: Warm/Dry, Pallor Focused Exam Lactate Level 10/31/22 19:10: Lactic Acid Level 0.77 Lactic Acid Level Laboratory Tests Test 10/31/22 19:10 Lactic Acid Level 0.77 MMOL/L (0.50-2.00) Progress/Results/Core Measures Suspected Sepsis SIRS Temperature: Pulse: Respiratory Rate: Laboratory Tests 10/31/22 19:10: White Blood Count 4.1L Blood Pressure / Mean: 10/31/22 19:10: Lactic Acid Level 0.77 Laboratory Tests 10/31/22 19:10: Creatinine 0.71, INR Comment 1.0, Platelet Count 199, Total Bilirubin 0.4 Results/Orders Lab Results Laboratory Tests Test 10/31/22 19:10 10/31/22 20:25 Range/Units White Blood Count 4.1 L 4.3-11.0 10^3/uL Red Blood Count 3.47 L 3.80-5.11 10^6/uL Hemoglobin 10.2 L 11.5-16.0 g/dL Hematocrit 31 L 35-52 % Mean Corpuscular Volume 88 80-99 fL Mean Corpuscular Hemoglobin 29 25-34 pg Mean Corpuscular Hemoglobin Concent 33 32-36 g/dL Red Cell Distribution Width 13.3 10.0-14.5 % Platelet Count 199 130-400 10^3/uL Mean Platelet Volume 8.0 L 9.0-12.2 fL Immature Granulocyte % (Auto) 0 % Neutrophils (%) (Auto) 65 42-75 % Lymphocytes (%) (Auto) 21 12-44 % Monocytes (%) (Auto) 7 0-12 % Eosinophils (%) (Auto) 6 0-10 % Basophils (%) (Auto) 1 0-10 % Neutrophils # (Auto) 2.7 1.8-7.8 10^3/uL Lymphocytes # (Auto) 0.9 L 1.0-4.0 10^3/uL Monocytes # (Auto) 0.3 0.0-1.0 10^3/uL Eosinophils # (Auto) 0.2 0.0-0.3 10^3/uL Basophils # (Auto) 0.0 0.0-0.1 10^3/uL Immature Granulocyte # (Auto) 0.0 0.0-0.1 10^3/uL Erythrocyte Sedimentation Rate 104 H 0-30 MM/HR Prothrombin Time 13.2 12.2-14.7 SEC INR Comment 1.0 0.8-1.4 Activated Partial Thromboplast Time 31 24-35 SEC Sodium Level 140 135-145 MMOL/L Potassium Level 4.4 3.6-5.0 MMOL/L Chloride Level 104 98-107 MMOL/L Carbon Dioxide Level 29 21-32 MMOL/L Anion Gap 7 5-14 MMOL/L Blood Urea Nitrogen 22 H 7-18 MG/DL Creatinine 0.71 0.60-1.30 MG/DL Estimat Glomerular Filtration Rate 90 BUN/Creatinine Ratio 31 Glucose Level 137 H 70-105 MG/DL Lactic Acid Level 0.77 0.50-2.00 MMOL/L Calcium Level 9.1 8.5-10.1 MG/DL Corrected Calcium 9.7 8.5-10.1 MG/DL Magnesium Level 1.4 L 1.6-2.4 MG/DL Total Bilirubin 0.4 0.1-1.0 MG/DL Aspartate Amino Transf (AST/SGOT) 17 5-34 U/L Alanine Aminotransferase (ALT/SGPT) 10 0-55 U/L Alkaline Phosphatase 72 40-136 U/L C-Reactive Protein High Sensitivity 0.68 H 0.00-0.50 MG/DL B-Type Natriuretic Peptide 83.1 <100.0 PG/ML Total Protein 7.0 6.4-8.2 GM/DL Albumin 3.2 3.2-4.5 GM/DL Lipase < 4 L 8-78 U/L TSH [place] Testing 3.43 0.35-4.94 UIU/ML Urine Color YELLOW Urine Clarity TURBID Urine pH 6.0 5-9 Urine Specific Schneider 1.020 1.016-1.022 Urine Protein 2+ H NEGATIVE Urine Glucose (UA) NEGATIVE NEGATIVE Urine Ketones NEGATIVE NEGATIVE Urine Nitrite POSITIVE H NEGATIVE Urine Bilirubin NEGATIVE NEGATIVE Urine Urobilinogen 0.2 < = 1.0 MG/DL Urine Leukocyte Esterase 3+ H NEGATIVE Urine RBC (Auto) 3+ H NEGATIVE Urine RBC 25-50 H /HPF Urine WBC 25-50 H /HPF Urine Renal Epithelial Cells 0-2 /HPF Urine Crystals NONE /LPF Urine Bacteria LARGE H /HPF Urine Casts NONE /LPF Urine Mucus NEGATIVE /LPF Urine Culture Indicated CULTURE PENDING My Orders Orders - YANG DERAS DO Ed Iv/Invasive Line Start (10/31/22 19:01) Ekg Tracing (10/31/22 19:01) Catheter(Urinary) Insert & Ass 03,15 (10/31/22 19:01) O2 (10/31/22 19:01) Monitor-Rhythm Ecg Trace Only (10/31/22 19:01) Bnp Iván (10/31/22 19:) Cbc With Automated Diff (10/31/22 19:01) Comprehensive Metabolic Panel (10/31/22 19:01) Hs C Reactive Protein (10/31/22 19:01) Lactic Acid Analyzer (10/31/22 19:01) Lipase (10/31/22 19:01) Magnesium (10/31/22 19:01) Protime With Inr (10/31/22 19:) Partial Thromboplastin Time (10/31/22 19:) Thyroid Analyzer (10/31/22 19:) Ua Culture If Indicated (10/31/22 19:01) Erythrocyte Sedimentation Rate (10/31/22 19:01) Blood Culture (10/31/22 19:) Sputum Culture (10/31/22 19:) Urine Culture (10/31/22:) Chest 1 View, Ap/Pa Only (10/31/22 19:01) Ed Iv/Invasive Line Start (10/31/22 19:01) Ed Iv/Invasive Line Start (10/31/22 19:) Vital Signs Adult Sepsis Patie Q15M (10/31/22 19:01) O2 (10/31/22 19:01) Remove Rings In Anticipation O (10/31/22 19:01) Cefepime Injection (Maxipime Injection) (10/31/22 19:15) Lidocaine 2% (Urojet) (Xylocaine Urojet) (10/31/22 19:15) Wound Culture (10/31/22 19:01) Straight Cath For Spec.-Adult (10/31/22 20:02) Medications Given in ED Current Medications Medications Dose Ordered Sig/Jorge A Route Start Time Stop Time Status Last Admin Dose Admin Cefepime HCl 1000 mg/Sodium Chloride 50 ml @ 100 mls/hr ONCE ONCE IV 10/31/22 19:15 10/31/22 19:44 DC 10/31/22 19:31 100 MLS/HR Vital Signs/I&O 10/31/22 10/31/22 18:50 20:22 Temp 36.8 36.5 Pulse 73 76 Resp 16 16 B/P (MAP) 168/79 (108) 167/77 Pulse Ox 97 97 O2 Delivery Room Air 11/01/22 00:00 Intake Total 50 ml Balance 50 ml Capillary Refill : Progress Note : Progress Note SEPSIS PROTOCOL INITIATED GIVEN: -IV FLUIDS -ANTIBIOTICS VITALS ON ARRIVAL: TEMP 36.8 = 98.2, HR 76, RR 16, BP 168/79, O2 SAT 97% ON ROOM AIR VITALS AT TIME OF ADMIT: TEMP 36.5 = 97.7, HR 76, RR 16, BP 167/77, O2 SAT 97% ON ROOM AIR NO DETERIORATION IN PT'S CONDITION DURING ER STAY PERTINENT LAB: CBC WITH WBC 4.1, HGB 10.2, PLT 199 SED RATE 104 CRP 0.68 LACTIC ACID 0.77 ELECTROLYTES NORMAL BUN 22, CR 0.71 MG 1.4 BNP 83 AMYLASE/LIPASE NORMAL TSH NORMAL CATH UA WITH + NITRITES, 3+ LEUKOCYTES, 3+ BLOOD, 25-50 RBC, 25-50 WBC, LARGE BACTERIA EKG UNREMARKABLE CXR UNREMARKABLE NO DETERIORATION OF PT'S CONDITION DURING ER STAY DISCUSSED TEST RESULTS, NEED FOR ADMIT AND PT IS AGREEABLE TO PLAN ECG Initial ECG Impression Date: Oct 31, 2022 Initial ECG Impression Time: 19:12 Initial ECG Rate: 74 Initial ECG Rhythm: Normal Sinus Initial ECG Intervals: Normal Initial ECG Impression: Normal (MUCH ARTIFACT) Initial ECG Comparisson: No Previous ECG Available Comment INTERPRETED BY ME Diagnostic Imaging Comments CXR--PER RADIOLOGIST REPORT AT 194 Findings: There is cardiomegaly. The mediastinum is unremarkable. There is no pleural effusion, pneumothorax or pneumonia. Impression: 1. Cardiomegaly. 2. No acute cardiopulmonary abnormality. Reviewed: Reviewed by Me Departure Communication (Admissions) 1956--SPOKE WITH DR. LOWRY, HOSPITALIST. ACCEPTS PT FOR ADMIT. WILL CONSULT WOUND CARE AND SURGERY IN THE MORNING Impression Primary Impression: Decubitus ulcer of sacral area Additional Impressions: Obesity NON MOBILE UTI (urinary tract infection) CHRONIC LEG EDEMA Neuropathy History of cervical cancer Cardiomyopathy Hx of coronary artery disease IDDM (insulin dependent diabetes mellitus) Hypomagnesemia HTN (hypertension) Disposition: ADMITTED INPATIENT Condition: Stable Admissions Decision to Admit Reason: Admit from ER (General) Decision to Admit/Date: Oct 31, 2022 Time/Decision to Admit Time: 19:45 Departure-Patient Inst. Referrals: RUSSELL OSORIO DO (PCP) Primary Care Physician OBINNA OSORIO DNP (Family) Primary Care Physician YANG DERAS DO Oct 31, 2022 19:11
[2022-10-31] MEDS ORDERED: LIDOCAINE UROJET 2% GEL 10 ML PKG TOP ONE (19:15)
[2022-10-31] MEDS ORDERED: CEFEPIME INJECTION 1,000 MG in NS (IVPB) 50 ML IV ONE (19:15)
[2022-10-31 19:26] LABS: BASOPHILS % (AUTO) 1 % (0-10); EOSINOPHILS # (AUTO) 0.2 10^3/uL (0.0-0.3); EOSINOPHILS % (AUTO) 6 % (0-10); HEMATOCRIT 31 % (35-52); HEMOGLOBIN 10.2 g/dL (11.5-16.0); LYMPHOCYTES # (AUTO) 0.9 10^3/uL (1.0-4.0); LYMPHOCYTES % (AUTO) 21 % (12-44); MEAN CORPUSCULAR HEMOGLOBIN 29 pg (25-34); MEAN CORPUSCULAR HGB CONC 33 g/dL (32-36); MEAN CORPUSCULAR VOLUME 88 fL (80-99); MONOCYTES # (AUTO) 0.3 10^3/uL (0.0-1.0); MONOCYTES % (AUTO) 7 % (0-12); NEUTROPHILS # (AUTO) 2.7 10^3/uL (1.8-7.8); NEUTROPHILS % (AUTO) 65 % (42-75); PLATELET COUNT 199 10^3/uL (130-400); WHITE BLOOD COUNT 4.1 10^3/uL (4.3-11.0)
--- NOTE | 2022-10-31 19:32 | Diagnostic Imaging Report ---
Indication: Weakness and edema. Comparison: Prior examination from 12/21/2021. Findings: There is cardiomegaly. The mediastinum is unremarkable. There is no pleural effusion, pneumothorax or pneumonia. Impression: 1. Cardiomegaly. 2. No acute cardiopulmonary abnormality. Dictated by: Dictated on workstation # [id number]
[2022-10-31 19:40] LABS: ALBUMIN 3.2 GM/DL (3.2-4.5); CHLORIDE 104 MMOL/L (98-107); POTASSIUM 4.4 MMOL/L (3.6-5.0); SODIUM 140 MMOL/L (135-145)
[2022-10-31 19:41] LABS: CALCIUM 9.1 MG/DL (8.5-10.1)
[2022-10-31 19:43] LABS: GLUCOSE 137 MG/DL (70-105)
[2022-10-31 19:44] LABS: BILIRUBIN,TOTAL 0.4 MG/DL (0.1-1.0); CARBON DIOXIDE 29 MMOL/L (21-32); ERYTHROCYTE SEDIMENTATION RATE 104 MM/HR (0-30)
[2022-10-31 19:46] LABS: ALKALINE PHOSPHATASE 72 U/L (40-136); CREATININE SERUM 0.71 MG/DL (0.60-1.30); GFR ESTIMATED 90
[2022-10-31 19:47] LABS: BUN/CREATININE RATIO 31; PROTHROMBIN TIME PATIENT 13.2 SEC (12.2-14.7)
[2022-10-31 19:49] LABS: ALANINE AMINOTRANSFERASE 10 U/L (0-55); MAGNESIUM 1.4 MG/DL (1.6-2.4)
[2022-10-31 19:50] LABS: LIPASE < 4 U/L (8-78)
[2022-10-31 20:37] LABS: TSH (THYROID ANALYZER) 3.43 UIU/ML (0.35-4.94)
[2022-10-31 20:39] LABS: BILIRUBIN,URINE NEGATIVE (NEGATIVE); CLARITY,URINE TURBID; COLOR,URINE YELLOW; GLUCOSE, URINE (UA) NEGATIVE (NEGATIVE); KETONES,URINE NEGATIVE (NEGATIVE); LEUKOCYTE ESTERASE ,URINE 3+ (NEGATIVE); NITRITE,URINE POSITIVE (NEGATIVE); PROTEIN,URINE 2+ (NEGATIVE)
[2022-10-31 20:45] VITALS: BP 183/84
[2022-10-31] MEDS ORDERED: fentaNYL INJ 100 MCG/2 ML AMP IV PRN (21:00)
[2022-10-31] MEDS ORDERED: ONDANSETRON 4 MG/2 ML (SDV) Z0FRAN IV PRN (21:00)
[2022-10-31] MEDS ORDERED: ACETAMINOPHEN 500 MG TAB (TYLENOL) PO PRN (21:00)
[2022-10-31 21:04] LABS: BACTERIA,URINE LARGE /HPF; RBC,URINE 25-50 /HPF; WBC,URINE 25-50 /HPF
[2022-10-31 21:05] LABS: RENAL EPITHELIAL CELLS,URINE 0-2 /HPF
[2022-10-31] MEDS ORDERED: VANCOMYCIN 1250 MG/NS 250 ML PREMIX IV ONE (21:15)
[2022-10-31] MEDS: inSUlin ASPART (NovoLOG) 1 UNIT/0.01 ML (CHARGE PER UNIT) SC SCH (21:22)
[2022-10-31 21:23] VITALS: BP 174/71
[2022-10-31] MEDS: NS IV 1000 ML 1,000 ML IV SCH (21:27)
[2022-10-31 23:53] VITALS: BP 142/65
[2022-11-01] MEDS: CEFEPIME 1,000 MG/NS 50 ML IVPB IV SCH ×8 (02:38→20:11)
[2022-11-01 03:46] VITALS: BP 133/60
[2022-11-01] MEDS: NS IV 1000 ML 1,000 ML IV SCH ×2 (05:42→11:02)
[2022-11-01 05:56] LABS: BASOPHILS % (AUTO) 0 % (0-10); EOSINOPHILS # (AUTO) 0.3 10^3/uL (0.0-0.3); EOSINOPHILS % (AUTO) 7 % (0-10); HEMATOCRIT 27 % (35-52); HEMOGLOBIN 8.9 g/dL (11.5-16.0); LYMPHOCYTES # (AUTO) 0.9 10^3/uL (1.0-4.0); LYMPHOCYTES % (AUTO) 25 % (12-44); MEAN CORPUSCULAR HEMOGLOBIN 29 pg (25-34); MEAN CORPUSCULAR HGB CONC 33 g/dL (32-36); MEAN CORPUSCULAR VOLUME 90 fL (80-99); MEAN PLATELET VOLUME 8.3 fL (9.0-12.2); MONOCYTES # (AUTO) 0.3 10^3/uL (0.0-1.0); MONOCYTES % (AUTO) 9 % (0-12); NEUTROPHILS # (AUTO) 2.1 10^3/uL (1.8-7.8); NEUTROPHILS % (AUTO) 58 % (42-75); PLATELET COUNT 177 10^3/uL (130-400); WHITE BLOOD COUNT 3.7 10^3/uL (4.3-11.0)
[2022-11-01 06:10] LABS: ALBUMIN 2.7 GM/DL (3.2-4.5); BILIRUBIN,TOTAL 0.5 MG/DL (0.1-1.0); CALCIUM 8.5 MG/DL (8.5-10.1); CREATININE SERUM 0.7 MG/DL (0.60-1.30); TOTAL PROTEIN 5.8 GM/DL (6.4-8.2)
[2022-11-01] MEDS: inSUlin ASPART (NovoLOG) 1 UNIT/0.01 ML (CHARGE PER UNIT) SC SCH ×4 (06:14→20:12)
[2022-11-01 08:06] VITALS: BP 130/69
[2022-11-01] MEDS ORDERED: VANCOMYCIN 750 MG/NS 250 ML IVPB IV SCH ×2 (10:00)
[2022-11-01 12:45] VITALS: BP 133/62
[2022-11-01] MEDS ORDERED: GADOTERATE 0.5 MMOL/ML (CLARISCAN) 20 ML VIAL IV ONE (13:15)
[2022-11-01] MEDS ORDERED: INSU100I10 SQ (14:12)
[2022-11-01] MEDS ORDERED: SACU1TAB2 PO (14:12)
[2022-11-01] MEDS ORDERED: FURO20TA4 PO (14:12)
[2022-11-01] MEDS ORDERED: ASPI-999 PO (14:12)
[2022-11-01] MEDS ORDERED: CLOP75TA28 PO (14:12)
[2022-11-01] MEDS ORDERED: ROSU20TA32 PO (14:12)
[2022-11-01] MEDS ORDERED: FOLI-88 PO (14:13)
[2022-11-01] MEDS ORDERED: UBID200C16 PO (14:14)
--- NOTE | 2022-11-01 14:22 | History & Physical-Hospitalist ---
History of Present Illness HPI/Chief Complaint Pt is a 72yoCF known to me from previous admissions with a PMH of HTN, T2DM, history of cervical cancer, chemotherapy associated neuropathy who presented to the ER due to worsening sacral wound. She reports she has had long standing wounds but thye have been able to clear up in the past. Recently she noticed that it was getting worse though and is unable to see her doctor very frequently due to her physical debility. She reports desire to get her wound to heal and she would like to go to a NH if that would help with her care. Source: patient Date Seen 11/01/22 Time Seen by a Provider: 14:22 Attending Physician Jaren Urban DO PCP Admitting Physician: Yadira Ashton MD Attending Physician: Yadira Ashton MD Referring Physician Date of Admission Oct 31, 2022 at 20:25 Home Medications & Allergies Home Medications Reviewed patient Home Medication Reconciliation performed by pharmacy medication reconciliations design technician and/or nursing. Patients Allergies have been reviewed. Allergies Allergies Coded Allergies Penicillins (Verified Allergy, Severe, SOA, pt has received Ceftriaxone w/o issue, 09/05/19) ciprofloxacin (Verified Allergy, Severe, BURNING SENSATION, 09/04/19) Sulfa (Sulfonamide Antibiotics) (Verified Allergy, Unknown, 09/04/19) bacitracin (Verified Allergy, Unknown, 09/04/19) benazepril (Verified Allergy, Unknown, 09/04/19) nut - unspecified (Verified Allergy, Unknown, 12/14/19) Past Nrjhynv-Rlggde-Qirhtt Hx Patient Social History Marrital Status: Employed/Student: retired Tobacco Use?: No Smoking Status: Never a Smoker Smokeless Tobacco Frequency: Never a User Use of E-Cig and/or Vaping dev: No Substance use?: No Alcohol Use?: No Pt feels they are or have been: No Immunizations Up To Date First/Initial COVID19 Vaccinat: 05/13/2020 Second COVID19 Vaccination Yuri: 06/02/2020 Tetanus Booster (TDap): Unknown Hepatitis A: Yes Hepatitis B: Yes Seasonal Allergies Seasonal Allergies: Yes Current Status status: No status: No Advance Directives: No Advance Directive Location: Wants to talk to SS and doctor about AD Communicates: Verbally Primary Language: Bengali Preferred Spoken Language: Bengali Is interpretation needed?: No Implanted or Applied Medical D: None Past Medical History Surgeries: Abdominal, Appendectomy, Gallbladder, Tonsillectomy Cardiomyopathy, Chronic Edema/Swelling, Coronary Artery Disease, Hypertension Neuropathy, Seizure Disorder, Traumatic Brain Injury 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 Sexually Transmitted Disease: No HIV/AIDS: No UTI-Chronic Abdominal Hernia, Gall Bladder Disease Foot Drop Diabetes, Insulin dep Cervical Did You Recieve Any Treatments: Yes What Type of Treatment Did You: Chemotherapy, Radiation Blood Disorders: No Family Medical History Reviewed Nursing Family Hx Cardiovascular disease 19 FATHER Diabetes mellitus 19 FATHER G8 BROTHER Respiratory disorder 19 MOTHER Review of Systems Constitutional: see HPI Physical Exam Physical Exam Vital Signs Vital Signs - First Documented 10/31/22 10/31/22 18:50 20:22 Temp 36.8 Pulse 73 Resp 16 B/P (MAP) 168/79 (108) Pulse Ox 97 O2 Delivery Room Air Capillary Refill : Less Than 3 Seconds Height, Weight, BMI Height: '" Weight: lbs. oz. kg; 36.17 BMI Method: General Appearance: No Apparent Distress, WD/WN Respiratory: Lungs Clear, No Respiratory Distress Cardiovascular: Regular Rate, Rhythm, No Murmur Gastrointestinal: Normal Bowel Sounds, Soft Extremity: Pedal Edema, Swelling Neurologic/Psychiatric: Alert, Oriented x3, Motor Weakness Results Results/Procedures Labs Laboratory Tests 10/31/22 19:10 11/01/22 05:27 11/02/22 05:55 Patient resulted labs reviewed. Imaging: Reviewed Imaging Report Assessment/Plan Admission Diagnosis Sacral wound Admission Status: Inpatient Order (span 2 midnights) Reason for Inpatient Admission: see below Assessment and Plan Sacral decubitus ulcer Protein energy malnutrition Wound care consult Continue IV abx Await cultures MRI pelvis ordered Glucergeoffrey levy Debility Lymphedema History of cervical cancer Cisplatin induced neuropathy PT/OT Social work consulted as will likely need SNF placement HTN T2DM Continue home meds BS well controlled so continue just SSI DVT ppx: ARIEL Singh MD Nov 01, 2022 14:22
--- NOTE | 2022-11-01 15:21 | CONSULTATION REPORT ---
DATE OF SERVICE: 11/01/2022 ATTENDING ADMITTING PHYSICIAN: Dr. Jaren Urban. The patient is a 72-year-old female who was instructed to go to the Emergency Department due to generalized weakness as well as nonhealing wounds. The patient is nonambulatory and has a history of diabetes as well as neuropathy and has had a longstanding history of sacral decubitus ulcers. She has been seeing wound care. It appears that there are multiple tunnels and this is consistent with a stage III decubitus ulcer. Again, based on her multitude of medical problems and her nonambulatory state, this makes it very difficult and precarious situation for care and allow healing for these decubitus ulcers. PAST MEDICAL HISTORY: Coronary artery disease, hypertension, chronic lower extremity edema, neuropathy, seizure disorder, traumatic brain injury, chronic urinary tract infection, insulin-dependent diabetes, history of cervical cancer. PAST SURGICAL HISTORY: Bilateral blepharoplasty, appendectomy, open cholecystectomy, tonsillectomy, incisional hernia repair. ALLERGIES: PENICILLIN, CIPROFLOXACIN, SULFA, BACITRACIN, BENAZEPRIL. MEDICATIONS: Albuterol 2.5 mg nebulizer every 6 hours p.r.n., aspirin 81 mg daily, Plavix 75 mg daily, bisacodyl 5 mg every 3 days p.r.n., carvedilol 20 mg daily, cefdinir 300 mg b.i.d., fluconazole 50 mg once a week, Guaifenesin 100 mg q. 4 hours p.r.n., glargine insulin 15 units daily, loratadine 10 mg daily, rosuvastatin 20 mg daily, sacubitril/valsartan 24/26 mg b.i.d. SOCIAL HISTORY: Previous smoke, negative alcohol. FAMILY HISTORY: Noncontributory. VITAL SIGNS: Temperature 36.6, blood pressure 130/69, pulse 79, respirations 18, pulse ox 97% on room air. REVIEW OF SYSTEMS: This is an obese female who is currently nonambulatory and does have bilateral lower extremity edema. She does not report any shortness of breath or difficulty breathing. No new cough or sputum production. No chest pain, palpitations, diaphoresis. No nausea or vomiting. No red blood per rectum nor any dark tarry stools. No fever or chills. No recent inadvertent weight loss. All other review of systems negative. PHYSICAL EXAMINATION: CHEST: Scattered rales and rhonchi bilaterally. HEART: Regular. No murmurs. EXTREMITIES: No lower extremity edema. Negative Homans sign. HEENT: No scleral icterus. No cervical lymphadenopathy. ABDOMEN: Soft, nontender, nondistended. SKIN: There is a large defect overlying the skin and subcutaneous overlying the sacral region with tunneling in multiple directions. There is fibrinoexudative rind with mild surrounding redness. LABORATORY DATA: WBC 3.7, hemoglobin 8.9, hematocrit 27, platelets 177, BUN 21, creatinine 0.70. Urinalysis, 3+ leukocyte esterase, positive nitrite, large amount of bacteria. ASSESSMENT AND PLAN: A 72-year-old female with multiple medical problems including diabetes, coronary artery disease, neuropathy and nonambulatory status. We will coordinate with the wound care and try to figure out the best modality for care of the sacral decubitus ulcer. An MRI was ordered to rule out osteomyelitis. If this is a small area or superficial, we would be comfortable in proceeding with a superficial ostectomy however, if this is more widespread we would refer to a specialist for formal removal of the coccyx bone. For now, we will recommend continued IV antibiotics, wet-to-dry dressings and offsetting pressure and frequent turning, ideally at least every 60 minutes. Job ID: [id number] DocumentID: [id number] Dictated Date: 11/01/2022 14:21:30 Ambulance Assistant Date: 11/01/2022 15:19:00 Dictated By: CAT WELLS MD [facility]
--- NOTE | 2022-11-01 15:28 | Diagnostic Imaging Report ---
PROCEDURE: MRI pelvis with and without contrast. TECHNIQUE: Multiplanar, multisequence MRI of the pelvis was performed with and without contrast. INDICATION: Sacral pressure ulcer. COMPARISON: Sacral radiographs from 07/07/2022. FINDINGS: No marrow replacement within the coccyx or sacrum to indicate osteomyelitis. No periosteal reaction. No abnormal enhancement within the visualized portions of the pelvis. No rim-enhancing fluid collection would indicate abscess. IMPRESSION: 1. No osteomyelitis within the sacrum or coccyx. 2. No soft tissue abscess around the sacrum. Dictated by: Dictated on workstation # [id number]
[2022-11-01] MEDS ORDERED: HYPOCHLOROUS ACID/NaCl (VASHE) 250 ML IR SCH (15:30)
[2022-11-01 15:49] VITALS: BP 148/67
--- NOTE | 2022-11-01 15:53 | Wound Care Assessment ---
Wound Care Assessment Date Seen by Provider: Nov 01, 2022 Time Seen by Provider: 15:39 Chief Complaint Stage 3 sacral decubitus ulcer HPI This pleasant 72 year old patient presents to our facility with prolonged immobility, pressure ulcer with worsening and protein energy malnutrition (moderate). Kemal's status has gradually been deteriorating over the last 3 years. She was diagnosed with cervical CA and was treated with radiation. 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 She also has a chronic sacral wound present since December of 2021 which has been worsening as well (likely radiation injury as well). Kemal is completely bed bound (uncertain etiology) and even struggles with positional changes. She continues to live at home with her and they have attempted to manage off loading with an air mattress and wedge at home. Her wound healing has been greatly complicated by the fact that Kemal has no wheelchair van or transportation services locally. She has been relying on [facility] for transportation to all physician visits. She has been maintaining all her medical care as such by telehealth visits (oncology and primary care as well). She has seen no other provider in person aside from myself in several years. This has been a significant detriment to her progress. I was only able to see her every few weeks due to this instead of the weekly visits per usual with woundcare. I also believe this to be an inappropriate use of emergency transport services. She plans to move to [facility] following her stay at our facility. This will significantly assist us in treatment plan. Kemal's ESR was significantly elevated in June but I was unable to do any imaging more than plain films due to her transportation restraints. I have ordered MRI today and am awaiting the results. If osteomyelitis is confirmed, we will need to discuss treatment options further. There has been worsening in size and depth of her ulcer since I last saw her. Past Medical History: Admits Diabetes Type II, Admits Heart Disease, Admits Myocardial Infarction, Admits Cancer, Treaments Immobility, obesity, chronic lymphedema, moderate PEM, Radiation history Smoking Status: Never a Smoker Recreational Drug Use: No Alcohol Use: Denies Use Review of Systems Cardiovascular: Edema Genitourinary: Dysuria, Frequency, Incontinence Neurological: Weakness Exam Vital Signs Date Time Temp Pulse Resp B/P (MAP) Pulse Ox O2 Delivery O2 Flow Rate FiO2 11/01/22 12:45 36.8 68 18 133/62 (85) 95 Room Air Capillary Refill : Less Than 3 Seconds General Appearance: no apparent distress, obese HEENT: other (normal hearing) Cardiovascular: other (2+ edema b/l LE) Respiratory: no respiratory distress, no accessory muscle use Extremities: pedal edema Neurologic/Psychiatric: alert, normal mood/affect, oriented x 3, motor weakness Skin: normal color, warm/dry Skin Problem Location: torso Skin Character: drainage (serosanguinous) Wound assessment: 3x2x1.7 cm. The epithelialization is none. There is no tunneling or undermining. Drainage is large and serosanguinous. Granulation is none. Necrotic is slarge and slough. The margins are flat. Results Laboratory Tests 10/31/22 19:10: White Blood Count 4.1L, Red Blood Count 3.47L, Hemoglobin 10.2L, Hematocrit 31L, Mean Corpuscular Volume 88, Mean Corpuscular Hemoglobin 29, Mean Corpuscular Hemoglobin Concent 33, Red Cell Distribution Width 13.3, Platelet Count 199, Mean Platelet Volume 8.0L, Immature Granulocyte % (Auto) 0, Neutrophils (%) (Auto) 65, Lymphocytes (%) (Auto) 21, Monocytes (%) (Auto) 7, Eosinophils (%) (Auto) 6, Basophils (%) (Auto) 1, Neutrophils # (Auto) 2.7, Lymphocytes # (Auto) 0.9L, Monocytes # (Auto) 0.3, Eosinophils # (Auto) 0.2, Basophils # (Auto) 0.0, Immature Granulocyte # (Auto) 0.0, Erythrocyte Sedimentation Rate 104H, Prothrombin Time 13.2, INR Comment 1.0, Activated Partial Thromboplast Time 31, Sodium Level 140, Potassium Level 4.4, Chloride Level 104, Carbon Dioxide Level 29, Anion Gap 7, Blood Urea Nitrogen 22H, Creatinine 0.71, Estimat Glomerular Filtration Rate 90, BUN/Creatinine Ratio 31, Glucose Level 137H, Lactic Acid Level 0.77, Calcium Level 9.1, Corrected Calcium 9.7, Magnesium Level 1.4L, Total Bilirubin 0.4, Aspartate Amino Transf (AST/SGOT) 17, Alanine Aminotransferase (ALT/SGPT) 10, Alkaline Phosphatase 72, C-Reactive Protein High Sensitivity 0.68H, B-Type Natriuretic Peptide 83.1, Total Protein 7.0, Albumin 3 .2, Lipase < 4L, TSH [place] Testing 3.43 10/31/22 20:25: Urine Color YELLOW, Urine Clarity TURBID, Urine pH 6.0, Urine Specific [place] 1.020, Urine Protein 2+H, Urine Glucose (UA) NEGATIVE, Urine Ketones NEGATIVE, Urine Nitrite POSITIVEH, Urine Bilirubin NEGATIVE, Urine Urobilinogen 0.2, Urine Leukocyte Esterase 3+H, Urine RBC (Auto) 3+H, Urine RBC 25-50H, Urine WBC 25-50H , Urine Renal Epithelial Cells 0-2, Urine Crystals NONE, Urine Bacteria LARGEH, Urine Casts NONE, Urine Mucus NEGATIVE, Urine Culture Indicated CULTURE PENDING 11/01/22 05:27: White Blood Count 3.7L, Red Blood Count 3.04L, Hemoglobin 8.9L, Hematocrit 27L, Mean Corpuscular Volume 90, Mean Corpuscular Hemoglobin 29, Mean Corpuscular Hemoglobin Concent 33, Red Cell Distribution Width 13.4, Platelet Count 177, Mean Platelet Volume 8.3L, Immature Granulocyte % (Auto) 0, Neutrophils (%) (Auto) 58, Lymphocytes (%) (Auto) 25, Monocytes (%) (Auto) 9, Eosinophils (%) (Auto) 7, Basophils (%) (Auto) 0, Neutrophils # (Auto) 2.1, Lymphocytes # (Auto) 0.9L, Monocytes # (Auto) 0.3, Eosinophils # (Auto) 0.3, Basophils # (Auto) 0.0, Immature Granulocyte # (Auto) 0.0, Sodium Level 139, Potassium Level 4.0, Chloride Level 107, Carbon Dioxide Level 27, Anion Gap 5, Blood Urea Nitrogen 21H, Creatinine 0.70, Estimat Glomerular Filtration Rate 91, BUN/Creatinine Ratio 30, Glucose Level 133H, Calcium Level 8.5, Corrected Calcium 9.5, Total Bilirubin 0.5, Aspartate Amino Transf (AST/SGOT) 17, Alanine Aminotransferase (ALT/SGPT) 10, Alkaline Phosphatase 61, Total Protein 5.8L, Albumin 2.7L 11/01/22 10:49: Glucometer 135H 11/01/22 15:33: Glucometer 153H Microbiology 10/31/22 Gram Stain, Resulted Pending 10/31/22 Wound Culture - Preliminary, Resulted Gram Negative Gabriel 10/31/22 Blood Culture - Preliminary, Resulted No growth Microbiology 10/31/22 Gram Stain, Resulted Pending 10/31/22 Wound Culture - Preliminary, Resulted Gram Negative Gabriel 10/31/22 Blood Culture - Preliminary, Resulted No growth 10/31/22 Blood Culture - Preliminary, Resulted No growth Assessment/Plan/Dx Assessment: 1. Stage 3 pressure ulcer sacrum 2. Severe immobility 3. Obesity 4. Moderate PEM 5. DM2 6. Refractory anemia Plan: 1. Cleanse with Vashe. Vashe dampened gauze wet to dry dressings twice daily secured with Allevyn BFD. Evaluate further with MRI. 2. Frequent positional changes. Air mattress 3. Defer to primary 4. Protein shakes 5. Defer to primary team (well controlled in recent past) 6. Defer to primary team 7. Disp: Agree with [facility]p upon d/c. I will plan to follow up as outpatient REMY SESAY MD Nov 01, 2022 15:53
[2022-11-01] MEDS ORDERED: FUROSEMIDE 20 MG (LASIX) TAB PO PRN (16:30)
[2022-11-01] MEDS: ENOXAPARIN 40 MG/0.4 ML (LOVENOX) SYR SQ SCH (17:56)
[2022-11-01 19:34] VITALS: BP 159/77
[2022-11-01] MEDS: ROSUVASTATIN 20 MG (CRESTOR) TABLET PO SCH (20:11)
[2022-11-01] MEDS: SACUBITRIL/VALSARTAN 24/26 MG (ENTRESTO) TABLET PO SCH (20:11)
[2022-11-01 23:26] VITALS: BP 129/63
[2022-11-02] MEDS: CEFEPIME 1,000 MG/NS 50 ML IVPB IV SCH ×8 (01:44→21:40)
[2022-11-02 03:23] VITALS: BP 147/71
[2022-11-02] MEDS: inSUlin ASPART (NovoLOG) 1 UNIT/0.01 ML (CHARGE PER UNIT) SC SCH ×5 (05:35→21:40)
[2022-11-02] MEDS: MULTIVIT W/MINERALS TAB (THERAGRAN M) PO SCH (05:38)
[2022-11-02 06:05] LABS: BASOPHILS % (AUTO) 0 % (0-10); EOSINOPHILS # (AUTO) 0.2 10^3/uL (0.0-0.3); EOSINOPHILS % (AUTO) 7 % (0-10); HEMATOCRIT 27 % (35-52); HEMOGLOBIN 8.8 g/dL (11.5-16.0); LYMPHOCYTES # (AUTO) 0.8 10^3/uL (1.0-4.0); LYMPHOCYTES % (AUTO) 28 % (12-44); MEAN CORPUSCULAR HEMOGLOBIN 29 pg (25-34); MEAN CORPUSCULAR HGB CONC 33 g/dL (32-36); MEAN CORPUSCULAR VOLUME 89 fL (80-99); MEAN PLATELET VOLUME 8.2 fL (9.0-12.2); MONOCYTES # (AUTO) 0.2 10^3/uL (0.0-1.0); MONOCYTES % (AUTO) 8 % (0-12); NEUTROPHILS # (AUTO) 1.6 10^3/uL (1.8-7.8); NEUTROPHILS % (AUTO) 57 % (42-75); PLATELET COUNT 165 10^3/uL (130-400); WHITE BLOOD COUNT 2.8 10^3/uL (4.3-11.0)
[2022-11-02 06:25] LABS: ALBUMIN 2.7 GM/DL (3.2-4.5); BILIRUBIN,TOTAL 0.5 MG/DL (0.1-1.0); CALCIUM 8.5 MG/DL (8.5-10.1); CREATININE SERUM 0.69 MG/DL (0.60-1.30); TOTAL PROTEIN 5.9 GM/DL (6.4-8.2)
[2022-11-02 07:16] VITALS: BP 144/67
[2022-11-02] MEDS: ASCORBIC ACID (VIT C) 500 MG TABLET PO SCH (08:38)
[2022-11-02] MEDS: VITAMIN D3 25 MCG (1,000 UNITS) TABLET PO SCH (08:39)
[2022-11-02] MEDS: ASPIRIN 81 MG CHEW (CHILDREN'S ASA) PO SCH (08:39)
[2022-11-02] MEDS: LORATADINE (CLARITIN) 10 MG TAB PO SCH (08:39)
[2022-11-02] MEDS: SACUBITRIL/VALSARTAN 24/26 MG (ENTRESTO) TABLET PO SCH ×2 (08:39→21:39)
[2022-11-02] MEDS: CLOPIDOGREL 75 MG (PLAVIX) TABLET PO SCH (08:39)
[2022-11-02] MEDS: LACTOBACILLUS ACIDOPHILUS (PROBIOTIC) CAPSULE PO SCH (08:40)
--- NOTE | 2022-11-02 10:18 | Wound Care Assessment ---
Wound Care Assessment Date Seen by Provider: Nov 02, 2022 Time Seen by Provider: 10:13 Chief Complaint Stage 3 sacral decubitus ulcer HPI This pleasant 72 year old patient presents to our facility with prolonged immobility, pressure ulcer with worsening and protein energy malnutrition (moderate). Kemal's status has gradually been deteriorating over the last 3 years. She was diagnosed with cervical CA and was treated with radiation. 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 She also has a chronic sacral pressure ulcer present since December of 2021 which has been worsening as well (likely radiation injury as well). Kemal is completely bed bound (uncertain etiology) and even struggles with positional changes. She continues to live at home with her and they have attempted to manage off loading with an air mattress and wedge at home. Her wound healing has been greatly complicated by the fact that Kemal has no wheelchair van or transportation services locally. She has been relying on [facility] for transportation to all physician visits. She has been maintaining all her medical care as such by telehealth visits (oncology and primary care as well). She has seen no other provider in person aside from myself in several years. This has been a significant detriment to her progress. I was only able to see her every few weeks due to this instead of the weekly visits per usual with woundcare. I also believe this to be an inappropriate use of emergency transport services. She plans to move to [facility] following her stay at our facility. This will significantly assist us in treatment plan. Kemal's ESR was significantly elevated in June but I was unable to do any imaging more than plain films due to her transportation restraints. MRI completed yesterday and negative for acute osteomyelitis or abscess. Her prealbumin was low (protein supplementation already ordered). Plan is for continued dressings as previously ordered and close follow up as outpatient. She needs in person visits arranged with a primary physician, oncologist, and urologist upon d/c home. Past Medical History: Admits Diabetes Type II, Admits Heart Disease, Admits Myocardial Infarction, Admits Cancer, Treaments Smoking Status: Never a Smoker Recreational Drug Use: No Alcohol Use: Denies Use Review of Systems Cardiovascular: Edema Genitourinary: Incontinence Neurological: Weakness Exam Vital Signs Date Time Temp Pulse Resp B/P (MAP) Pulse Ox O2 Delivery O2 Flow Rate FiO2 11/02/22 08:00 96 Room Air 11/02/22 07:16 36.4 68 20 144/67 (92) Capillary Refill : Less Than 3 Seconds General Appearance: no apparent distress, obese HEENT: other (hearing wnl) Cardiovascular: other (2+ edema b/l LE) Respiratory: no respiratory distress, no accessory muscle use Extremities: no calf tenderness, normal capillary refill, pedal edema Neurologic/Psychiatric: alert, normal mood/affect, oriented x 3 Skin Problem Location: torso Skin Character: drainage (serosanguinous), erythema Wound assessment: 3.8x2.7x2.2cm. Cluster 2. The epithelialization is none. There is no tunneling or undermining. Drainage is large and serosanguinous. Granula tion is none. necrotic is large and slough. The margins are flat. Results Laboratory Tests 11/01/22 10:49: Glucometer 135H 11/01/22 15:33: Glucometer 153H 11/01/22 20:12: Glucometer 153H 11/02/22 05:31: Glucometer 131H 11/02/22 05:55: White Blood Count 2.8L, Red Blood Count 2.99L, Hemoglobin 8.8L, Hematocrit 27L, Mean Corpuscular Volume 89, Mean Corpuscular Hemoglobin 29, Mean Corpuscular Hemoglobin Concent 33, Red Cell Distribution Width 13.4, Platelet Count 165, Mean Platelet Volume 8.2L, Immature Granulocyte % (Auto) 0, Neutrophils (%) (Auto) 57, Lymphocytes (%) (Auto) 28, Monocytes (%) (Auto) 8, Eosinophils (%) (Auto) 7, Basophils (%) (Auto) 0, Neutrophils # (Auto) 1.6L, Lymphocytes # (Auto) 0.8L, Monocytes # (Auto) 0.2, Eosinophils # (Auto) 0.2, Basophils # (Auto) 0.0, Immature Granulocyte # (Auto) 0.0, Sodium Level 140, Potassium Level 4.0, Chloride Level 109H, Carbon Dioxide Level 25, Anion Gap 6, Blood Urea Nitrogen 19H, Creatinine 0.69, Estimat Glomerular Filtration Rate 92, BUN/Creatinine Ratio 28, Glucose Level 128H, Calcium Level 8.5, Corrected Calcium 9.5, Total Bilirubin 0.5, Aspartate Amino Transf (AST/SGOT) 15, Alanine Aminotransferase (ALT/SGPT) 9, Alkaline Phosphatase 60, Total Protein 5.9L, Albumin 2.7L Microbiology 10/31/22 Urine Culture - Preliminary, Resulted Gram Negative Gabriel 10/31/22 Gram Stain - Final, Resulted 10/31/22 Wound Culture - Preliminary, Resulted Gram Negative Gabriel 10/31/22 Blood Culture - Preliminary, Resulted No growth Microbiology 10/31/22 Urine Culture - Preliminary, Resulted Gram Negative Gabriel 10/31/22 Gram Stain - Final, Resulted 10/31/22 Wound Culture - Preliminary, Resulted Gram Negative Gabriel 10/31/22 Blood Culture - Preliminary, Resulted No growth 10/31/22 Blood Culture - Preliminary, Resulted No growth Assessment/Plan/Dx Assessment: 1. Stage 3 pressure ulcer sacrum 2. Severe immobility 3. Obesity 4. Moderate PEM 5. DM2 6. Refractory anemia Plan: 1. Cleanse with Vashe. Vashe dampened gauze wet to dry dressings twice daily secured with Allevyn BFD. Follow up as outpatient 2. Frequent positional changes. Air mattress 3. Defer to primary 4. Protein shakes 5. Defer to primary team (well controlled in recent past) 6. Defer to primary team 7. Disp: Agree with detention upon d/c. I will plan to follow up as outpatient REMY SESAY MD Nov 02, 2022 10:18
[2022-11-02 11:08] VITALS: BP 145/63
--- NOTE | 2022-11-02 11:12 | Occupational Therapy Eval ---
OT Evaluation-General/PLF Medical Diagnosis Admission Date Oct 31, 2022 at 20:25 Medical Diagnosis: Sacral decubitus ulcer Onset Date: Oct 31, 2022 Therapy Diagnosis Therapy Diagnosis: general weakness, PU Precautions Precautions/Isolations: Standard Precautions, Pressure Ulcer Comments Therapies educated patient and spouse of shearing risks, bed positions and reverse trendelenburg for at home bed mobility and transfers. Has trapeze at home over bed Weight Bear Status Weight Bearing Restriction: Non Weight Bearing Location Restriction: LE Bilateral Referral Referral Reason: Activity Tolerance, Self Care, Evaluation/Treatment Medical History Pertinent Medical History: DM, HTN, Neuropathy, TBI Additional Medical History [id number] known from previous admissions with a PMH of HTN, T2DM, history of cervical cancer, chemotherapy associated neuropathy who presented to the ER due to worsening sacral wound. She reports she has had long standing wounds but thye have been able to clear up in the past. Recently she noticed that it was getting worse though and is unable to see her doctor very frequently due to her physical debility. She reports desire to get her wound to heal and she would like to go to a [facility] if that would help with her care. Current History BED bound, uses Mechanical Hair lift to for exiting home only, does not propel self in WC. Additional person assists in home 3-5 times per week for care Reviewed History: Yes Social History Home: Single Level Current Living Status: Spouse Entry Into Home: Level Entry ADL-Prior Level of Function SCALE: Activities may be completed with or without assistive devices. 5-Imtqyuwbwo-attchrl completes the activity by him/herself with no assistance from a helper. 5-Set-up or Clean-up Assistance-helper sets up or cleans up; patient completes activity. [place] assists only prior to or following the activity. 4-Supervision or Touching Assistance-helper provides verbal cues and/or touchin g/steadying and/or contact guard assistance as patient completes activity. Assistance may be provided throughout the activity or intermittently. 3-Partial/Moderate Assistance-helper does LESS THAN HALF the effort. [place] lifts, holds or supports trunk or limbs, but provides less than half the effort. 2-Substantial/Maximal Assistance-helper does MORE THAN HALF the effort. [place] lifts or holds trunk or limbs and provides more than half the effort. 6-Jbyhwhmrb-tlutrq does ALL the effort. Patient does none of the effort to complete the activity. Or, the assistance of 2 or more helpers is required for the patient to complete the activity. If activity was not attempted, code reason: 7-Patient Refused. 9-Not Applicable-not attempted and the patient did not perform the activity before the current illness, exacerbation or injury. 10-Not Attempted due to Environmental Limitations-(lack of equipment, weather restraints, etc.). 88-Not Attempted due to Medical Conditions or Safety Concerns. ADL PLOF Comments Patient reports she is able to change her UB pullover garments when laid out and handed to her, sit in upright slightly reclined position (does not like fully upright position) to perform face/oral/hair grooming with set up along side of bed or over top of bed. Patient reports she is able to perform front rubina hygiene w/o soap. She toilets on bed pads and rolls to right side for bed/linen changes using her trapeze and bedrails. One person assist for care. One person attends to Dependent LB ADLs and dressing. Patient unusually lays in bed w/o garments to LB. Patient does have TRACE ROM in BLES SEE PT Self Care: Needed Some Help Functional Cognition: Independent DME/Equipment Comments HAIR, WC, trapeze, hospital bed, senior electrical design engineer, leg special investigation unit investigator, bed tray, hair shampoo tray, ramp Drive Self: No OT Current Status Subjective I want to be stronger and heal my wounds Pain Numeric Pain Scale: 5-Moderate Pain Comment: generalized pain Mental Status/Objective Patient Orientation: Person, Place, Time, Situation Current Glasses/Contacts: Yes Upper Extremity ROM BUE ROM WFLS Upper Extremity Sensation painful touch Upper Extremity Strength -4/5, pulls self in bed and rolls to right and hods self for hygiene and offloading ADL-Treatment Eating (QC): 6 Oral Hygiene (QC): 5 Shower/Bathe Self (QC): 2 Upper Body Dressing (QC): 5 Lower Body Dressing (QC): 1 On/Off Footwear (QC): 1 Toileting Hygiene (QC): 3 Education OT Patient Education: Correct positioning, Exercise program, Instructions to caregiver, Modified ADL techniques, Progress toward Goal/Update tx plan, Purpose of tx/functional activities, Reviewed precautions, Rehab process, Safety issues, Transfer techniques, Use of adapted equipment Teaching Recipient: Patient, Significant Other Teaching Methods: Demonstration, Discussion Response to Teaching: Reinforcement Needed OT Assisted Goals Assisted Goals Shower/Bathe Self (QC): 3 Upper Body Dressing (QC): 5 1=Demonstrate adherence to instructed precautions during ADL tasks. 2=Patient will verbalize/demonstrate understanding of assistive devices/modifications for ADL. 3=Patient will improve strength/tolerance for activity to enable patient to perform ADL's. OT Education/Plan Problem List/Assessment Assessment: Decreased Activ Tolerance, Decreased UE Strength, Impaired Bed Mobility, Impaired Coordination, Impaired Funct Balance, Impaired Self-Care Skills Discharge Recommendations Plan/Recommendations: Continue POC Treatment Plan/Plan of Care Treatment,Training & Education: Yes Patient would benefit from OT for education, treatment and training to promote independence in ADL's, mobility, safety and/or upper extremity function for ADL's. Plan of Care: ADL Retraining, Cognitive Retraining, Concurrent Therapy, Functional Mobility, Group Exercise/Act as Ind, UE Funct Exercise/Act Treatment Duration: Nov 13, 2022 Frequency: 3 times per week (3-5 times per week) Estimated Hrs Per Day: .25 hour per day Agreement: Yes Rehab Potential: Fair Time Start Time: 09:47 Stop Time: 10:00 DATE: Nov 02, 2022 Total Time Billed (hr/min): 13 Billed Treatment Time GABE DAVILA OT Nov 02, 2022 11:12
--- NOTE | 2022-11-02 11:14 | Physical Therapy Evaluation ---
PT Evaluation-General Medical Diagnosis Admission Date Oct 31, 2022 at 20:25 Medical Diagnosis: sacral decub ulcer/UTI Onset Date: Oct 31, 2022 Therapy Diagnosis Therapy Diagnosis: debility Precautions Precautions/Isolations: Standard Precautions Referral Physician: Jace Reason for Referral: Evaluation/Treatment Medical History Pertinent Medical History: CAD, DM, HTN, Neuropathy, TBI Current History ER secondary to wound Reviewed History: Yes Social History Home: Single Level Current Living Status: Spouse Prior Prior Level of Function SCALE: Activities may be completed with or without assistive devices. 3-Myqxexubmu-ljdyvvm completes the activity by him/herself with no assistance from a helper. 5-Set-up or Clean-up Assistance-helper sets up or cleans up; patient completes activity. [place] assists only prior to or following the activity. 4-Supervision or Touching Assistance-helper provides verbal cues and/or touching/steadying and/or contact guard assistance as patient completes activity. Assistance may be provided throughout the activity or intermittently. 3-Partial/Moderate Assistance-helper does LESS THAN HALF the effort. [place] lifts, holds or supports trunk or limbs, but provides less than half the effort. 2-Substantial/Maximal Assistance-helper does MORE THAN HALF the effort. [place] lifts or holds trunk or limbs and provides more than half the effort. 1-Utzslfqik-knpvsg does ALL the effort. Patient does none of the effort to complete the activity. Or, the assistance of 2 or more helpers is required for the patient to complete the activity. If activity was not attempted, code reason: 7-Patient Refused. 9-Not Applicable-not attempted and the patient did not perform the activity before the current illness, exacerbation or injury. 10-Not Attempted due to Environmental Limitations-(lack of equipment, weather restraints, etc.). 88-Not Attempted due to Medical Conditions or Safety Concerns. Bed Mobility: 3 Transfers (B,C,W/C): 9 Gait: 9 Indoor Mobility (Ambulation): Not [place] Stairs: Not [place] per patient, she hasn't been OOB for several months PT Evaluation-Current Subjective Patient agrees to PT. Objective Patient Orientation: Normal For Age ROM/Strength ROM Lower Extremities limited PROM all planes (plantarflexion contractures bilaterally, right hip ER contracture) Strength Lower Extremities trace bilaterally Integumentary/Posture Integumentary refer to nursing notes Bowel Incontinence: Yes Bladder Incontinence: Yes Neuromuscular (Tone, Coordination, Reflexes) diminished bilateral LE with all Sensory Vision: Wears Glasses Hearing: Functional Transfers Roll Left to Right (QC): 3 (mod assist to right/patient limits rolling to left due to lymphedema) Sit to Lying (QC): 9 Lying to Sitting/Side of Bed(Q: 9 Chair/Dbf-dy-Rqqhz Xfer(QC): 9 Gait Does the Patient Walk?: No and Walking Goal NOT indicated Assessment/Needs Patient did assist with rolling to right with mod assist. Patient requires bed to be place in Trendelenburg to assist with up in bed repositioning. Pillow placement behind back to relieve sacral pressure. Rehab Potential: Poor PT Skilled Nursing Goals Barrel Drum Cutter Goals PT Barrel Drum Cutter Goals Time Frame: Nov 13, 2022 Roll Left & Right (QC): 4 (CGA) PT Plan Problem List Problem List: Activity Tolerance, Functional Strength, Bed Mobility, ROM Treatment/Plan Treatment Plan: Continue Plan of Care Treatment Plan: Bed Mobility, Education, Functional Activity Nickolas, Functional Strength, Therapeutic Exercise Treatment Duration: Nov 13, 2022 Frequency: 5 times per week Estimated Hrs Per Day: .25 hour per day Time Time In: 945 Time Out: 957 DATE: Nov 02, 2022 Total Billed Treatment Time: 12 Total Billed Treatment 1 visit [facility] 12 min NESTOR GILL PT Nov 02, 2022 11:14
--- NOTE | 2022-11-02 14:53 | Progress Note ---
Subjective Date Seen by a Provider: Nov 02, 2022 Time Seen by a Provider: 14:00 Subjective/Events-last exam doing much better. 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 Focused Exam Lactate Level 10/31/22 19:10: Lactic Acid Level 0.77 Objective Exam Vital Signs Date Time Temp Pulse Resp B/P (MAP) Pulse Ox O2 Delivery O2 Flow Rate FiO2 11/02/22 12:39 71 11/02/22 11:08 36.9 74 18 145/63 (90) 97 Room Air 11/02/22 08:00 96 Room Air 11/02/22 07:16 36.4 68 20 144/67 (92) 96 Room Air 11/02/22 06:50 69 11/02/22 03:23 36.7 68 18 147/71 (96) 97 Room Air 11/02/22 01:00 90 11/01/22 23:26 36.7 70 18 129/63 (85) 97 Room Air 11/01/22 20:58 Room Air 11/01/22 19:34 36.8 79 18 159/77 (104) 98 Room Air 11/01/22 19:00 81 11/01/22 15:49 36.7 77 20 148/67 (94) 97 Room Air I & O 11/02/22 07:00 Intake Total 2550 ml Output Total 1300 ml Balance 1250 ml Capillary Refill : Less Than 3 Seconds General Appearance: No Apparent Distress HEENT: PERRL/EOMI Neck: Full Range of Motion Respiratory: Chest Non Tender, Lungs Clear, Decreased Breath Sounds Cardiovascular: Regular Rate, Rhythm Gastrointestinal: normal bowel sounds, non tender, soft Extremity: Normal Capillary Refill Neurologic/Psychiatric: Alert, Oriented x3 Skin: Normal Color, Other (wound clean/dry, minimal drainage, no surrounding redness/erythema.) Lymphatic: No Adenopathy Results Lab Laboratory Tests 11/01/22 15:33: Glucometer 153H 11/01/22 20:12: Glucometer 153H 11/02/22 05:31: Glucometer 131H 11/02/22 05:55: White Blood Count 2.8L, Red Blood Count 2.99L, Hemoglobin 8.8L, Hematocrit 27L, Mean Corpuscular Volume 89, Mean Corpuscular Hemoglobin 29, Mean Corpuscular Hemoglobin Concent 33, Red Cell Distribution Width 13.4, Platelet Count 165, Mean Platelet Volume 8.2L, Immature Granulocyte % (Auto) 0, Neutrophils (%) (Auto) 57, Lymphocytes (%) (Auto) 28, Monocytes (%) (Auto) 8, Eosinophils (%) (Auto) 7, Basophils (%) (Auto) 0, Neutrophils # (Auto) 1.6L, Lymphocytes # (Auto) 0.8L, Monocytes # (Auto) 0.2, Eosinophils # (Auto) 0.2, Basophils # (Auto) 0.0, Immature Granulocyte # (Auto) 0.0, Sodium Level 140, Potassium Level 4.0, Chloride Level 109H, Carbon Dioxide Level 25, Anion Gap 6, Blood Urea Nitrogen 19H, Creatinine 0.69, Estimat Glomerular Filtration Rate 92, BUN/Creatinine Ratio 28, Glucose Level 128H, Calcium Level 8.5, Corrected Calcium 9.5, Total Bilirubin 0.5, Aspartate Amino Transf (AST/SGOT) 15, Alanine Aminotransferase (ALT/SGPT) 9, Alkaline Phosphatase 60, Total Protein 5.9L, Albumin 2.7L 11/02/22 11:12: Glucometer 153H Microbiology 10/31/22 Urine Culture - Final, Complete Escherichia coli 10/31/22 Gram Stain - Final, Resulted 10/31/22 Wound Culture - Preliminary, Resulted Gram Negative Gabriel 10/31/22 Blood Culture - Preliminary, Resulted No growth Assessment/Plan Assessment/Plan Assess & Plan/Chief Complaint recurrent sacral decubitus ulcer secondary radiation induced arteriosclerosis. cont wound care. off load pressure at least every hour. CAT WELLS MD Nov 02, 2022 14:53
--- NOTE | 2022-11-02 15:06 | Progress Note - Hospitalist ---
Subjective HPI/CC On Admission Date Seen by Provider: Nov 02, 2022 Pt is a 72yoCF known to me from previous admissions with a PMH of HTN, T2DM, history of cervical cancer, chemotherapy associated neuropathy who presented to the ER due to worsening sacral wound. She reports she has had long standing wounds but thye have been able to clear up in the past. Recently she noticed that it was getting worse though and is unable to see her doctor very frequently due to her physical debility. She reports desire to get her wound to heal and she would like to go to a NH if that would help with her care. Subjective/Events-last exam Pt reports feeling well today. Tired from working with wound care and PT already today. Focused Exam Lactate Level 10/31/22 19:10: Lactic Acid Level 0.77 Objective Exam Vital Signs Vital Signs Date Time Temp Pulse Resp B/P (MAP) Pulse Ox O2 Delivery O2 Flow Rate FiO2 11/02/22 12:39 71 11/02/22 11:08 36.9 18 145/63 (90) 97 Room Air Capillary Refill : Less Than 3 Seconds General Appearance: No Apparent Distress, Chronically ill Respiratory: Lungs Clear Cardiovascular: Regular Rate, Rhythm Extremity: Pedal Edema, Swelling Neurologic/Psychiatric: Alert, Oriented x3 Results/Procedures Lab Laboratory Tests 11/02/22 05:55 Patient resulted labs reviewed. Imaging: Reviewed Imaging Report Assessment/Plan Assessment and Plan Assess & Plan/Chief Complaint Sacral decubitus ulcer Protein energy malnutrition Wound care consult Continue IV abx Urine cultures with e coli and wound MRI pelvis without evidence of osteomylelitis Marleniergeoffrey ojedakes Debility Lymphedema History of cervical cancer Cisplatin induced neuropathy PT/OT Social work consulted as will likely need SNF placement- accepted at [facility]- hopefully DC there tomorrow HTN T2DM Continue home meds BS well controlled so continue just SSI Last echo was about a year ago, given difficulties with transportation for health care visits- will repeat echo now DVT ppx: ARIEL Singh MD Nov 02, 2022 15:06
[2022-11-02 15:53] VITALS: BP 149/65
[2022-11-02] MEDS: ENOXAPARIN 40 MG/0.4 ML (LOVENOX) SYR SQ SCH (18:14)
[2022-11-02 19:40] VITALS: BP 145/65
[2022-11-02] MEDS: ROSUVASTATIN 20 MG (CRESTOR) TABLET PO SCH (21:39)
[2022-11-02 23:45] VITALS: BP 116/65
[2022-11-03] MEDS: CEFEPIME 1,000 MG/NS 50 ML IVPB IV SCH ×4 (02:17→08:44)
[2022-11-03 03:30] VITALS: BP 117/65
[2022-11-03 05:50] LABS: BASOPHILS % (AUTO) 0 % (0-10); EOSINOPHILS # (AUTO) 0.2 10^3/uL (0.0-0.3); EOSINOPHILS % (AUTO) 5 % (0-10); HEMATOCRIT 25 % (35-52); HEMOGLOBIN 8.2 g/dL (11.5-16.0); LYMPHOCYTES # (AUTO) 0.9 10^3/uL (1.0-4.0); LYMPHOCYTES % (AUTO) 26 % (12-44); MEAN CORPUSCULAR HEMOGLOBIN 29 pg (25-34); MEAN CORPUSCULAR HGB CONC 33 g/dL (32-36); MEAN CORPUSCULAR VOLUME 88 fL (80-99); MEAN PLATELET VOLUME 8.4 fL (9.0-12.2); MONOCYTES # (AUTO) 0.3 10^3/uL (0.0-1.0); MONOCYTES % (AUTO) 8 % (0-12); NEUTROPHILS % (AUTO) 60 % (42-75); PLATELET COUNT 160 10^3/uL (130-400); WHITE BLOOD COUNT 3.3 10^3/uL (4.3-11.0)
[2022-11-03 06:13] LABS: ALBUMIN 2.6 GM/DL (3.2-4.5); BILIRUBIN,TOTAL 0.3 MG/DL (0.1-1.0); CALCIUM 8.2 MG/DL (8.5-10.1); CREATININE SERUM 0.68 MG/DL (0.60-1.30); POTASSIUM 3.9 MMOL/L (3.6-5.0); TOTAL PROTEIN 5.6 GM/DL (6.4-8.2)
[2022-11-03] MEDS: MULTIVIT W/MINERALS TAB (THERAGRAN M) PO SCH (06:16)
[2022-11-03 08:01] VITALS: BP 118/62
[2022-11-03] MEDS: ASCORBIC ACID (VIT C) 500 MG TABLET PO SCH (08:42)
[2022-11-03] MEDS: LACTOBACILLUS ACIDOPHILUS (PROBIOTIC) CAPSULE PO SCH (08:42)
[2022-11-03] MEDS: ASPIRIN 81 MG CHEW (CHILDREN'S ASA) PO SCH (08:42)
[2022-11-03] MEDS: LORATADINE (CLARITIN) 10 MG TAB PO SCH (08:42)
[2022-11-03] MEDS: VITAMIN D3 25 MCG (1,000 UNITS) TABLET PO SCH (08:43)
[2022-11-03] MEDS: CLOPIDOGREL 75 MG (PLAVIX) TABLET PO SCH (08:43)
[2022-11-03] MEDS: SACUBITRIL/VALSARTAN 24/26 MG (ENTRESTO) TABLET PO SCH (08:43)
[2022-11-03] MEDS: inSUlin ASPART (NovoLOG) 1 UNIT/0.01 ML (CHARGE PER UNIT) SC SCH (11:35)
[2022-11-03 11:49] VITALS: BP 140/65
[2022-11-03] MEDS ORDERED: CHOL200078 PO (11:54)
[2022-11-03] MEDS ORDERED: INSU100I10 SQ (11:54)
[2022-11-03] MEDS ORDERED: CEFD300C3 PO (11:54)
[2022-11-03] MEDS ORDERED: SODI475I IR (11:54)
[2022-11-03] MEDS ORDERED: SACU1TAB2 PO (11:54)
[2022-11-03] MEDS ORDERED: FURO20TA4 PO (11:54)
[2022-11-03] MEDS ORDERED: CA C1TAB66 PO (11:54)
[2022-11-03] MEDS ORDERED: ASCO500T71 PO (11:54)
[2022-11-03] MEDS ORDERED: CNC1KV IM (11:54)
[2022-11-03] MEDS ORDERED: ROSU20TA32 PO (11:54)
[2022-11-03] MEDS ORDERED: CARV20CP7 PO (11:54)
[2022-11-03] MEDS ORDERED: FOLI-88 PO (11:54)
[2022-11-03] MEDS ORDERED: UBID200C16 PO (11:54)
[2022-11-03] MEDS ORDERED: ASPI-999 PO (11:54)
[2022-11-03] MEDS ORDERED: L. R1TAB PO (11:54)
[2022-11-03] MEDS ORDERED: FLUC50TA22 PO (11:54)
[2022-11-03] MEDS ORDERED: CLOP75TA28 PO (11:54)
[2022-11-03] MEDS ORDERED: LORA10TA7 PO (11:54)
--- NOTE | 2022-11-03 11:57 | Discharge Inst-Skilled Nursing ---
Discharge Inst-Skilled NF Chief Complaint Pt is a 72yoCF known to me from previous admissions with a PMH of HTN, T2DM, history of cervical cancer, chemotherapy associated neuropathy who presented to the ER due to worsening sacral wound. She reports she has had long standing wounds but thye have been able to clear up in the past. Recently she noticed that it was getting worse though and is unable to see her doctor very frequently due to her physical debility. She reports desire to get her wound to heal and she would like to go to a NH if that would help with her care. Consult/Follow Up/Orders Follow Up Appt.: With Dr Urban in a week and with Dr Pickard late this week or early next week. Skilled NF Admit to: [facility] Certification ([facility]) I certify that SNF services are required to be given on an inpatient basis because of the above named patient's need for detention care on a timo nuing basis for the conditions(s) for which he/she was receiving inpatient hospital services prior to his/her transfer to the SNF. Nursing Home Facility Order: Nursing Services, Bench Hand Machine-Evaluate & Treat, Physical Therapy-Evaluate & Treat, Wound Care-Eval/Treat Oxygen Delivery Method: Room Air Discharge Diet: ADA Diet Resuscitation Status: Full Code New & Resume Previous Orders Other Instructions Cleanse wound with Vashe. Vashe dampened gauze wet to dry dressings twice daily secured with Allevyn BFMónica Mccormick Nov 03, 2022 11:55 ARIEL MCCORMICK MD Nov 03, 2022 11:57
--- NOTE | 2022-11-03 13:21 | Discharge Summary ---
Diagnosis/Chief Complaint Date of Admission Oct 31, 2022 at 20:25 Date of Discharge Discharge Date: Nov 03, 2022 Admission Diagnosis Sacral wound Primary Care WilmarNata Keshav [place],[facility] Discharge Summary Discharge Physical Exam Allergies: Coded Allergies: Penicillins (Verified Allergy, Severe, SOA, pt has received Ceftriaxone w/o issue, 09/05/19) ciprofloxacin (Verified Allergy, Severe, BURNING SENSATION, 09/04/19) Sulfa (Sulfonamide Antibiotics) (Verified Allergy, Unknown, 09/04/19) bacitracin (Verified Allergy, Unknown, 09/04/19) benazepril (Verified Allergy, Unknown, 09/04/19) nut - unspecified (Verified Allergy, Unknown, 12/14/19) Vitals & I&Os Vital Signs Date Time Temp Pulse Resp B/P (MAP) Pulse Ox O2 Delivery O2 Flow Rate FiO2 11/03/22 12:37 69 11/03/22 11:49 36.4 18 140/65 (90) 95 Room Air Hospital Course Labs (last 24 hrs) Laboratory Tests 11/02/22 15:18: Glucometer 171H 11/02/22 19:54: Glucometer 166H 11/03/22 05:29: White Blood Count 3.3L, Red Blood Count 2.85L, Hemoglobin 8.2L, Hematocrit 25L, Mean Corpuscular Volume 88, Mean Corpuscular Hemoglobin 29, Mean Corpuscular Hemoglobin Concent 33, Red Cell Distribution Width 13.4, Platelet Count 160, Mean Platelet Volume 8.4L, Immature Granulocyte % (Auto) 1, Neutrophils (%) (Auto) 60, Lymphocytes (%) (Auto) 26, Monocytes (%) (Auto) 8, Eosinophils (%) (Auto) 5, Basophils (%) (Auto) 0, Neutrophils # (Auto) 2.0, Lymphocytes # (Auto) 0.9L, Monocytes # (Auto) 0.3, Eosinophils # (Auto) 0.2, Basophils # (Auto) 0.0, Immature Granulocyte # (Auto) 0.0, Sodium Level 138, Potassium Level 3.9, Chloride Level 108H, Carbon Dioxide Level 25, Anion Gap 5, Blood Urea Nitrogen 18, Creatinine 0.68, Estimat Glomerular Filtration Rate 92, BUN/Creatinine Ratio 26, Glucose Level 166H, Calcium Level 8.2L, Corrected Calcium 9.3, Total Bilirubin 0.3, Aspartate Amino Transf (AST/SGOT) 14, Alanine Aminotransferase (ALT/SGPT) 7, Alkaline Phosphatase 54, Total Protein 5.6L, Albumin 2.6L 11/03/22 10:42: Glucometer 186H Microbiology 10/31/22 Urine Culture - Final, Complete Escherichia coli 10/31/22 Gram Stain - Final, Resulted 10/31/22 Wound Culture - Preliminary, Resulted Gram Negative Gabriel See Comments 10/31/22 Blood Culture - Preliminary, Resulted No growth Patient resulted labs reviewed. Pending Labs Laboratory Tests 11/03/22 05:29: White Blood Count 3.3, Red Blood Count 2.85, Hemoglobin 8.2, Hematocrit 25, Mean Corpuscular Volume 88, Mean Corpuscular Hemoglobin 29, Mean Corpuscular Hemoglobin Concent 33, Red Cell Distribution Width 13.4, Platelet Count 160, Mean Platelet Volume 8.4, Immature Granulocyte % (Auto) 1, Neutrophils (%) (Auto) 60, Lymphocytes (%) (Auto) 26, Monocytes (%) (Auto) 8, Eosinophils (%) (Auto) 5, Basophils (%) (Auto) 0, Neutrophils # (Auto) 2.0, Lymphocytes # (Auto) 0.9, Monocytes # (Auto) 0.3, Eosinophils # (Auto) 0.2, Basophils # (Auto) 0.0, Immature Granulocyte # (Auto) 0.0, Sodium Level 138, Potassium Level 3.9, Chloride Level 108, Carbon Dioxide Level 25, Anion Gap 5, Blood Urea Nitrogen 18, Creatinine 0.68, Estimat Glomerular Filtration Rate 92, BUN/Creatinine Ratio 26, Glucose Level 166, Calcium Level 8.2, Corrected Calcium 9.3, Total Bilirubin 0.3, Aspartate Amino Transf (AST/SGOT) 14, Alanine Aminotransferase (ALT/SGPT) 7, Alkaline Phosphatase 54, Total Protein 5.6, Albumin 2.6 11/03/22 10:42: Glucometer 186 Imaging: Reviewed Imaging Report Discharge Home Medications: Active Scripts Active Cefdinir 300 Mg Capsule 300 Mg PO BID Vashe Wound Therapy Solution (Sodium Chlor/Hypochlorous Acid) 0.033 % Irrig.soln 0 Ml IR UD see wound care notes Co Q-10 (Ubidecarenone) 200 Mg Capsule 400 Mg PO DAILY TAKES 2 (200MG) CAPS Multi-Vitamin Gummies (Folic Acid/Multivit-Min/Lutein) 200 Mcg-137.5 Mcg Tab.chew 1 Each PO DAILY Aspirin 81 Mg Tab.chew 81 Mg PO DAILY PRN Entresto 24 mg-26 mg Tablet (Sacubitril/Valsartan) 24 Mg-26 Mg Tablet 1 Ea PO BID Clopidogrel (Clopidogrel Bisulfate) 75 Mg Tablet 75 Mg PO DAILY Rosuvastatin Calcium 20 Mg Tablet 20 Mg PO HS Lantus Solostar (Insulin Glargine,Hum.rec.anlog) 100 Unit/Ml (3 Ml) Insuln.pen 15 Units SQ HS Furosemide 20 Mg Tablet 20 Mg PO DAILY PRN Cyanocobalamin Injection (Cyanocobalamin) 1,000 Mcg/Ml Inj 1,000 Mcg IM XOCHITL Vitamin D3 (Cholecalciferol (Vitamin D3)) 50 Mcg (2000 Unit) Tab.chew 50 Mcg PO DAILY Loratadine 10 Mg Tablet 10 Mg PO DAILY Fluconazole 50 Mg Tablet 50 Mg PO DAILY PRN Culturelle Chewable Tablet (L. Rhamnosus GG/Inulin) 10 Billion Cell-200 Mg Tab.chew 1 Each PO DAILY Carvedilol ER (Carvedilol Phosphate) 20 Mg Cpmp.24hr 20 Mg PO DAILY Calcium + Vit D & K Chew Tab (Ca Carbonate/Vitamin D3/Vit K) 500 Mg Calcium-500 Unit-40 Mcg Tab.chew 1 Each PO XOCHITL Vitamin C (Ascorbic Acid) 500 Mg Tab.chew 1,000 Mg PO DAILY TAKES 2 (500MG) TABS Instructions to patient/family Please see electronic discharge instructions given to patient. ARIEL FISCHER MD Nov 03, 2022 13:21
[2022-11-03 14:30] VITALS: BP 140/65
--- NOTE | 2022-11-04 10:06 | Physician Query Clarification ---
PQ-Uncertain Diagnosis Admission/Discharge Admission Date: Oct 31, 2022 at 20:25 Discharge Date: Nov 03, 2022 at 14:30 Dr. Mccormick, The medical record reflects the following clinical scenario: History/Risk Factors: chronic UTI's, sacral decubitus ulcer, bed bound, DM Clinical Findings: urine culture - E.Coli 30,000 CFU/ML Treatment: IV Cefepime, IV Vancomycin Question: Is UTI a clinically valid diagnosis? UTI was documented in the ER with no further documentation in the medical record. Please document a response in Progress Note or Discharge Summary. 1. Yes, clinically valid, condition resolved. 2. No, condition ruled out. 3. Other, with explanation of clinical findings. 4. Undetermined, no explanation for clinical findings. PHYSICIAN RESPONSE Diagnosis clinically valid: Yes, Conditon resolved In responding to this query, please exercise your independent professional judgment. The purpose of this communication is to more accurately reflect the complexity of your patients condition. The fact that a question is asked does not imply that any particular answer is desired or expected. Thank you for your timely response to this clarification. Requestors name: Romina THIS PHYSICIAN QUERY FORM IS A PERMANENT PART OF THE MEDICAL RECORD ROMINA CORNEJO Nov 04, 2022 10:06 ARIEL MCCORMICK MD Nov 05, 2022 15:31
[2022-11-05] MEDS ORDERED: CALCIUM CARB + VIT D 600 MG (CALCARB + D) TAB PO SCH (08:00)
== END 2022-11-03 14:30 | DRG 593 ==
LOC: EDUNIT# 18:59 → ER 19:01 → 4TH 20:25
PROVIDERS: ADMIT Internal Medicine; ATTEND Internal Medicine
DX: L89.153 Pressure ulcer of sacral region, stage 3 (principal); E44.0 Moderate protein-calorie malnutrition; I42.9 Cardiomyopathy, unspecified; I70.8 Atherosclerosis of other arteries; Z68.36 Body mass index [BMI] 36.0-36.9, adult; G62.0 Drug-induced polyneuropathy; T45.1X5S Adverse effect of antineoplastic and immunosuppressive drugs, sequela; E66.9 Obesity, unspecified; E83.42 Hypomagnesemia; G40.909 Epilepsy, unspecified, not intractable, without status epilepticus; D46.4 Refractory anemia, unspecified; I89.0 Lymphedema, not elsewhere classified; E11.9 Type 2 diabetes mellitus without complications; I25.10 Atherosclerotic heart disease of native coronary artery without angina pectoris; I10 Essential (primary) hypertension; I25.2 Old myocardial infarction; Z74.01 Bed confinement status; Z59.82 Transportation insecurity; Z85.41 Personal history of malignant neoplasm of cervix uteri; Z87.820 Personal history of traumatic brain injury; Z79.4 Long term (current) use of insulin; Z79.82 Long term (current) use of aspirin; Z79.899 Other long term (current) drug therapy; Z88.1 Allergy status to other antibiotic agents; Y84.2 Radiological procedure and radiotherapy as the cause of abnormal reaction of the patient, or of later complication, without mention of misadventure at the time of the procedure
CPT/HCPCS: 36415; 51701; 71045; 72197; 80053; 81000; 82947; 83605; 83690; 83735; 83880; 84134; 84443; 85025; 85610; 85652; 85730; 86141; 87040; 87070; 87077; 87088; 87186; 87205; 93005; 93041; 93306

== ENCOUNTER → 2022-11-08 | Outpatient (CLI) | payer MEDICARE, OTHER ==
[~2022-11-08] MED LIST changes: +ASPI-999 PO; +FOLI-88 PO; +FURO20TA4 PO; +UBID200C16 PO
== END ==
LOC: WOUNDCARE 08:49
PROVIDERS: ATTEND Family Medicine
DX: I96 Gangrene, not elsewhere classified (principal); L89.153 Pressure ulcer of sacral region, stage 3; L59.8 Other specified disorders of the skin and subcutaneous tissue related to radiation; E55.9 Vitamin D deficiency, unspecified; D51.9 Vitamin B12 deficiency anemia, unspecified; E44.0 Moderate protein-calorie malnutrition; E66.01 Morbid (severe) obesity due to excess calories; M62.81 Muscle weakness (generalized); M62.3 Immobility syndrome (paraplegic); D46.4 Refractory anemia, unspecified; I89.0 Lymphedema, not elsewhere classified
CPT/HCPCS: 11042; A6212; G0463

== ENCOUNTER → 2022-11-15 | Outpatient (CLI) | payer MEDICARE, OTHER | LOC: WOUNDCARE 08:53 | PROVIDERS: ATTEND Family Medicine | DX: I96 Gangrene, not elsewhere classified (principal); L89.153 Pressure ulcer of sacral region, stage 3; L59.8 Other specified disorders of the skin and subcutaneous tissue related to radiation; E55.9 Vitamin D deficiency, unspecified; D51.9 Vitamin B12 deficiency anemia, unspecified; E44.0 Moderate protein-calorie malnutrition; E66.01 Morbid (severe) obesity due to excess calories; M62.81 Muscle weakness (generalized); M62.3 Immobility syndrome (paraplegic); D46.4 Refractory anemia, unspecified; I89.0 Lymphedema, not elsewhere classified; Z68.32 Body mass index [BMI] 32.0-32.9, adult | CPT/HCPCS: 11042; A6212; G0463 ==

== ENCOUNTER → 2022-12-06 | Outpatient (CLI) | payer MEDICARE, OTHER ==
[~2022-12-06] MED LIST changes: -ROSU20TA32 PO; +ROSU20TA73 PO
== END ==
LOC: WOUNDCARE 09:05
PROVIDERS: ATTEND Family Medicine
DX: I96 Gangrene, not elsewhere classified (principal); L89.153 Pressure ulcer of sacral region, stage 3; L98.8 Other specified disorders of the skin and subcutaneous tissue; T66.XXXA Radiation sickness, unspecified, initial encounter; E55.9 Vitamin D deficiency, unspecified; D51.9 Vitamin B12 deficiency anemia, unspecified; E44.0 Moderate protein-calorie malnutrition; E66.01 Morbid (severe) obesity due to excess calories; M62.81 Muscle weakness (generalized); Z68.32 Body mass index [BMI] 32.0-32.9, adult; M62.3 Immobility syndrome (paraplegic); D46.4 Refractory anemia, unspecified; I89.0 Lymphedema, not elsewhere classified; L97.512 Non-pressure chronic ulcer of other part of right foot with fat layer exposed; L92.9 Granulomatous disorder of the skin and subcutaneous tissue, unspecified
CPT/HCPCS: 11042; 17250; 83036; 84134; A6212; G0463; 36415

== ENCOUNTER → 2022-12-13 | Outpatient (CLI) | payer MEDICARE, OTHER | LOC: WOUNDCARE 09:06 | PROVIDERS: ATTEND Family Medicine | DX: L89.153 Pressure ulcer of sacral region, stage 3 (principal); L59.8 Other specified disorders of the skin and subcutaneous tissue related to radiation; T66.XXXA Radiation sickness, unspecified, initial encounter; E55.9 Vitamin D deficiency, unspecified; D51.9 Vitamin B12 deficiency anemia, unspecified; E44.0 Moderate protein-calorie malnutrition; E66.01 Morbid (severe) obesity due to excess calories; Z68.32 Body mass index [BMI] 32.0-32.9, adult; R53.1 Weakness; M62.3 Immobility syndrome (paraplegic); D46.4 Refractory anemia, unspecified; I89.0 Lymphedema, not elsewhere classified; I96 Gangrene, not elsewhere classified | CPT/HCPCS: 11042; A6212; G0463 ==

== ENCOUNTER 2022-12-15 14:03 | Outpatient (RCR) | payer MEDICARE, OTHER | END 2023-01-06 | disposition home or self-care (01) | LOC: ONC 14:03 | PROVIDERS: ATTEND Internal Medicine Hematology & Oncology | DX: C53.9 Malignant neoplasm of cervix uteri, unspecified (principal); E11.9 Type 2 diabetes mellitus without complications; I10 Essential (primary) hypertension; K43.2 Incisional hernia without obstruction or gangrene; J90 Pleural effusion, not elsewhere classified | CPT/HCPCS: 99214 ==

== ENCOUNTER → 2022-12-20 | Outpatient (CLI) | payer MEDICARE, OTHER ==
[~2022-12-20] MED LIST changes: +CATHETER FLUSH 10 ML SYR IVP PRN
--- NOTE | 2022-12-20 15:25 | Diagnostic Imaging Report ---
INDICATION: Initial staging malignant neoplasm of the cervix. Serum blood glucose level at the time of injection is 136 mg/dL. The patient was administered 10.6 mCi F-18 FDG intravenously in the right antecubital location and PET imaging was performed from the top of the skull to mid thighs. Noncontrast CT was also performed for attenuation correction and anatomic correlation. CORRELATION is made with prior PET/CT study from 10/30/2019. There is symmetric activity throughout the brain. Soft tissues of the neck are unremarkable. No definite mediastinal or hilar hypermetabolism is identified. No pulmonary parenchymal hypermetabolism is identified. There is physiologic activity throughout the gastrointestinal and genitourinary tracts of the abdomen and pelvis. No suspicious areas of hypermetabolism are identified with the exception of uptake just medial to the left acetabulum, likely within an obturator lymph node. SUV max is 5.8. No other hypermetabolic lymph nodes are identified. IMPRESSION: There has been development of uptake within a left obturator lymph node, concerning for a metastatic lesion. No other significant abnormality is detected. Dictated by: Dictated on workstation # [id number]
== END ==
LOC: RAD 08:36
PROVIDERS: ATTEND Internal Medicine Hematology & Oncology
DX: C53.9 Malignant neoplasm of cervix uteri, unspecified (principal)
CPT/HCPCS: 78815; 82947; A9552

== ENCOUNTER → 2023-01-06 | Outpatient (CLI) | payer MEDICARE, OTHER ==
[~2023-01-06] MED LIST changes: -CATHETER FLUSH 10 ML SYR IVP PRN
== END ==
LOC: WOUNDCARE 12:33
PROVIDERS: ATTEND Family Medicine
DX: I96 Gangrene, not elsewhere classified (principal); L89.153 Pressure ulcer of sacral region, stage 3; L59.8 Other specified disorders of the skin and subcutaneous tissue related to radiation; E55.9 Vitamin D deficiency, unspecified; D51.9 Vitamin B12 deficiency anemia, unspecified; E66.01 Morbid (severe) obesity due to excess calories; E44.0 Moderate protein-calorie malnutrition; M62.81 Muscle weakness (generalized); I89.0 Lymphedema, not elsewhere classified; D46.4 Refractory anemia, unspecified; M62.3 Immobility syndrome (paraplegic); Z68.32 Body mass index [BMI] 32.0-32.9, adult
CPT/HCPCS: 11042; G0463

== ENCOUNTER 2023-01-25 12:15 | Emergency (ER) | payer MEDICARE, OTHER ==
[~2023-01-25] VITALS: Ht 165.1 cm; Wt 82.3 kg
--- NOTE | 2023-01-25 12:19 | ED GU-Female ---
General Stated Complaint: HEMATURIA History of Present Illness Date Seen by Provider: Jan 25, 2023 Time Seen by Provider: 12:18 Initial Comments 72 yr F with PMH of Cervical cancer with remission in 2019/ bilateral lower extremity lymphedema/ HTN/ DM2/ bed bound and wheel chair bound since having cancer, is brought in by EMS with c/o hematuria which began today morning, bright red blood, as per pt. Pt states she has some suprapubic discomfort, but no abdominal or flank pain. Denies fever and chills, injuries, falls, dysuria. Pt is not on a blood thinner. Allergies and Home Medications Allergies Coded Allergies: Penicillins (Verified Allergy, Severe, SOA, pt has received Ceftriaxone w/o issue, 09/05/19) ciprofloxacin (Verified Allergy, Severe, BURNING SENSATION, 09/04/19) Sulfa (Sulfonamide Antibiotics) (Verified Allergy, Unknown, 09/04/19) bacitracin (Verified Allergy, Unknown, 09/04/19) benazepril (Verified Allergy, Unknown, 09/04/19) nut - unspecified (Verified Allergy, Unknown, 12/14/19) Patient Home Medication List Home Medication List Reviewed: Yes Ascorbic Acid (Vitamin C) 500 Mg Tab.chew, 1,000 MG PO DAILY Prescribed by: ARIEL FISCHER on 11/03/22 1154 Aspirin (Aspirin) 81 Mg Tab.chew, 81 MG PO DAILY PRN Prescribed by: ARIEL FISCHER on 11/03/22 1154 Ca Carbonate/Vitamin D3/Vit K (Calcium + Vit D & K Chew Tab) 500 Mg Calcium-500 Unit-40 Mcg Tab.chew, 1 EACH PO TUESDAY Prescribed by: ARIEL FISCHER on 11/03/22 1154 Carvedilol Phosphate (Carvedilol ER) 20 Mg Cpmp.24hr, 20 MG PO DAILY Prescribed by: ARIEL FISCHER on 11/03/22 1154 Cefdinir (Cefdinir) 300 Mg Capsule, 300 MG PO BID Prescribed by: ARIEL FISCHER on 11/03/22 1154 Cholecalciferol (Vitamin D3) (Vitamin D3) 50 Mcg (2000 Unit) Tab.chew, 50 MCG PO DAILY Prescribed by: ARIEL FISCHER on 11/03/22 1154 Clopidogrel Bisulfate (Clopidogrel) 75 Mg Tablet, 75 MG PO DAILY Prescribed by: ARIEL FISCHER on 11/03/22 1154 Cyanocobalamin (Cyanocobalamin Injection) 1,000 Mcg/Ml Inj, 1,000 MCG IM TUESDAY Prescribed by: ARIEL FISCHER on 11/03/22 1154 Fluconazole (Fluconazole) 50 Mg Tablet, 50 MG PO DAILY PRN for WHEN TAKING ANTIBIOTICS Prescribed by: ARIEL FISCHER on 11/03/22 1154 Folic Acid/Multivit-Min/Lutein (Multi-Vitamin Gummies) 200 Mcg-137.5 Mcg Tab.chew, 1 EACH PO DAILY Prescribed by: ARIEL FISCHER on 11/03/22 1154 Furosemide (Furosemide) 20 Mg Tablet, 20 MG PO DAILY PRN for FLUID RETENTION Prescribed by: ARIEL FISCHER on 11/03/22 1154 Insulin Glargine,Hum.rec.anlog (Lantus Solostar) 100 Unit/Ml (3 Ml) Insuln.pen, 15 UNITS SQ HS Prescribed by: ARIEL FISCHER on 11/03/22 1154 L. Rhamnosus GG/Inulin (Culturelle Chewable Tablet) 10 Billion Cell-200 Mg Tab.chew, 1 EACH PO DAILY Prescribed by: ARIEL FISCHER on 11/03/22 1154 Loratadine (Loratadine) 10 Mg Tablet, 10 MG PO DAILY Prescribed by: ARIEL FISCHER on 11/03/22 115 Rosuvastatin Calcium (Rosuvastatin Calcium) 20 Mg Tablet, 20 MG PO HS Prescribed by: ARIEL FISCHER on 11/03/22 1154 Sacubitril/Valsartan (Entresto 24 mg-26 mg Tablet) 24 Mg-26 Mg Tablet, 1 EA PO BID Prescribed by: ARIEL FISCHER on 11/03/22 1154 Sodium Chlor/Hypochlorous Acid (Vashe Wound Therapy Solution) 0.033 % Irrig.soln, 0 ML IR UD Prescribed by: ARIEL FISCHER on 11/03/22 115 Ubidecarenone (Co Q-10) 200 Mg Capsule, 400 MG PO DAILY Prescribed by: ARIEL FISCHER on 11/03/22 1154 Review of Systems Review of Systems Constitutional: no symptoms reported EENTM: no symptoms reported Respiratory: no symptoms reported Cardiovascular: no symptoms reported Gastrointestinal: no symptoms reported Genitourinary: see HPI, hematuria, other Musculoskeletal: no symptoms reported Skin: no symptoms reported Psychiatric/Neurological: No Symptoms Reported Endocrine: No Symptoms Reported Past Eixzbzc-Rpfgfn-Eyfgxr Hx Immunizations Up To Date First/Initial COVID19 Vaccinat: 05/13/2020 Second COVID19 Vaccination Yuri: 06/02/2020 Third COVID19 Vaccination Date: 03/16/2021 Seasonal Allergies Seasonal Allergies: Yes Past Medical History Surgery/Hospitalization HX: INCISIONAL HERNIA REPAIR ( SITE OF PRIOR OPEN CHOLECYSTECTOMY) 2019 CHOLECYSTECTOMY 1975 APPENDECTOMY BLEPHAROPLASTY TONSILLECTOMY Tonsilectomy 1955 Cervical CA at [facility] [id number]--TREATED WITH BRACHYTHERAPY AND CHEMO CARDIAC CATH 12/15/21 BY : RESULTS: HEMODYNAMICS: The aortic pressure was 74/43 mmHg. The left ventricular pressure was 82/0 mmHg with a left ventricular end-diastolic pressure of 4 mmHg. There was no significant pressure gradient upon pullback across aortic valve. CORONARY ANGIOGRAPHY: The left coronary system was moderately calcified. Left main coronary artery: Free of significant disease. Left anterior descending coronary artery: Free of significant disease. Left circumflex coronary artery: Free of significant disease. There was a 90% stenosis in the ostium of a small second obtuse marginal branch with ANNA MARIE-3 flow. This may have been the ischemia related vessel for the non-ST elevation myocardial infarction but this is approximately a 1.5 mm vessel and would be too small for revascularization. Right coronary artery: Dominant and there was a 40% stenosis in the midsegment at the takeoff of the right ventricular branch with ANNA MARIE-3 flow. IMPRESSION: 1. Low systemic blood pressure and left ventricular end-diastolic pressure. 2. There was mild disease in the mid segment of the dominant right coronary artery and severe disease in a small second obtuse marginal branch. The disease in the second obtuse marginal branch may have been responsible for the non-ST elevation myocardial infarction but this branch is too small for revascularization. 3. The patient is known to have moderate left ventricular systolic dysfunction with an estimated ejection fraction of 30-35% by echocardiogram that was obtained on 12/13/2021. 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 History: Menopausal Sexually Transmitted Disease: No HIV/AIDS: No Genitourinary: Yes UTI-Chronic Gastrointestinal: Yes (INCISIONAL HERNIA REPAIR; OPEN CHOLECYSTECTOMY) Abdominal Hernia, Gall Bladder Disease Musculoskeletal: Yes (GENERALIZED WEAKNESS/NON-AMBULATORY) Foot Drop Endocrine: Yes Diabetes, Insulin dep HEENT: No Cancer: Yes Cervical Did You Recieve Any Treatments: Yes What Type of Treatment Did You: Chemotherapy, Radiation Psychosocial: No Integumentary: Yes (SACRAL DECUBITUS ULCER) Blood Disorders: No Family Medical History Cardiovascular disease 19 FATHER Diabetes mellitus 19 FATHER G8 BROTHER Respiratory disorder 19 MOTHER Physical Exam Vital Signs Vital Signs - First Documented 01/25/23 12:15 Temp 37.0 Pulse 77 Resp 14 B/P (MAP) 171/68 (102) O2 Delivery Room Air Capillary Refill : Height, Weight, BMI Height: '" Weight: lbs. oz. kg; 35.77 BMI Method: General Appearance: WD/WN, no apparent distress HEENT: PERRL/EOMI Neck: full range of motion Cardiovascular: regular rate, rhythm, other (bilateral non-pittingleg swelling due to lymphedema) Respiratory: lungs clear, normal breath sounds, no respiratory distress Gastrointestinal: normal bowel sounds, non tender, soft Genital/Rectal: other (moderate vaginal exam which is bright red, no blood in the urine and no bleeding from the urethra. Mild suprapubic discomfort.) Pelvic: vaginal bleeding (moderate vaginal exam which is bright red, no blood in the urine and no bleeding from the urethra. Mild suprapubic discomfort.) Back: normal inspection, no CVA tenderness, no vertebral tenderness Neurologic/Psychiatric: alert, normal mood/affect, oriented x 3 Skin: pallor Progress/Results/Core Measures Suspected Sepsis SIRS Temperature: Pulse: Respiratory Rate: Laboratory Tests 01/25/23 12:30: White Blood Count 3.9L Blood Pressure / Mean: Laboratory Tests 01/25/23 12:30: Creatinine 0.66, INR Comment 1.0, Platelet Count 184, Total Bilirubin 0.3 Results/Orders Lab Results Laboratory Tests Test 01/25/23 12:30 Range/Units White Blood Count 3.9 L 4.3-11.0 10^3/uL Red Blood Count 3.25 L 3.80-5.11 10^6/uL Hemoglobin 9.2 L 11.5-16.0 g/dL Hematocrit 30 L 35-52 % Mean Corpuscular Volume 91 80-99 fL Mean Corpuscular Hemoglobin 28 25-34 pg Mean Corpuscular Hemoglobin Concent 31 L 32-36 g/dL Red Cell Distribution Width 15.1 H 10.0-14.5 % Platelet Count 184 130-400 10^3/uL Mean Platelet Volume 9.0 9.0-12.2 fL Immature Granulocyte % (Auto) 0 % Neutrophils (%) (Auto) 62 42-75 % Lymphocytes (%) (Auto) 26 12-44 % Monocytes (%) (Auto) 6 0-12 % Eosinophils (%) (Auto) 5 0-10 % Basophils (%) (Auto) 1 0-10 % Neutrophils # (Auto) 2.4 1.8-7.8 10^3/uL Lymphocytes # (Auto) 1.0 1.0-4.0 10^3/uL Monocytes # (Auto) 0.2 0.0-1.0 10^3/uL Eosinophils # (Auto) 0.2 0.0-0.3 10^3/uL Basophils # (Auto) 0.0 0.0-0.1 10^3/uL Immature Granulocyte # (Auto) 0.0 0.0-0.1 10^3/uL Prothrombin Time 13.6 12.2-14.7 SEC INR Comment 1.0 0.8-1.4 Activated Partial Thromboplast Time 30 24-35 SEC Urine Color YELLOW Urine Clarity TURBID H Urine pH 6.0 5-9 Urine Specific [place] 1.020 1.016-1.022 Urine Protein 2+ H NEGATIVE Urine Glucose (UA) NEGATIVE NEGATIVE Urine Ketones NEGATIVE NEGATIVE Urine Nitrite NEGATIVE NEGATIVE Urine Bilirubin NEGATIVE NEGATIVE Urine Urobilinogen 0.2 < = 1.0 MG/DL Urine Leukocyte Esterase 3+ H NEGATIVE Urine RBC (Auto) 3+ H NEGATIVE Urine RBC 5-10 H /HPF Urine WBC TNTC H /HPF Urine Squamous Epithelial Cells NONE /HPF Urine Crystals NONE /LPF Urine Bacteria LARGE H /HPF Urine Casts NONE /LPF Urine Mucus NEGATIVE /LPF Urine Culture Indicated YES Sodium Level 142 135-145 MMOL/L Potassium Level 4.1 3.6-5.0 MMOL/L Chloride Level 104 98-107 MMOL/L Carbon Dioxide Level 29 21-32 MMOL/L Anion Gap 9 5-14 MMOL/L Blood Urea Nitrogen 28 H 7-18 MG/DL Creatinine 0.66 0.60-1.30 MG/DL Estimat Glomerular Filtration Rate 93 BUN/Creatinine Ratio 42 Glucose Level 159 H 70-105 MG/DL Calcium Level 8.7 8.5-10.1 MG/DL Corrected Calcium 9.4 8.5-10.1 MG/DL Magnesium Level 1.5 L 1.6-2.4 MG/DL Total Bilirubin 0.3 0.1-1.0 MG/DL Aspartate Amino Transf (AST/SGOT) 25 5-34 U/L Alanine Aminotransferase (ALT/SGPT) 13 0-55 U/L Alkaline Phosphatase 81 40-136 U/L Total Protein 7.3 6.4-8.2 GM/DL Albumin 3.1 L 3.2-4.5 GM/DL My Orders Orders - DWIGHT LOPES MD Cbc With Automated Diff (01/25/23 12:19) Comprehensive Metabolic Panel (01/25/23 12:19) Magnesium (01/25/23 12:19) Protime With Inr (01/25/23 12:19) Partial Thromboplastin Time (01/25/23 12:19) Ua Culture If Indicated (01/25/23 12:19) Urine Culture (01/25/23 12:30) Ceftriaxone Iv/Im (Ceftriaxone Iv/Im) (01/25/23 13:30) Ct Abdomen/Pelvis W (01/25/23 13:48) Iohexol Injection (Omnipaque 350 Mg/Ml 1 (01/25/23 14:30) Received Contrast (Hold Metformin- Contr (01/25/23 14:30) Ns (Ivpb) 100 Ml (Sodium Chloride 0.9% 1 (01/25/23 14:30) Medications Given in ED Current Medications Medications Dose Ordered Sig/Jorge A Route Start Time Stop Time Status Last Admin Dose Admin Ceftriaxone Sodium 1000 mg/ Sodium Chloride 50 ml @ 100 mls/hr ONCE ONCE IV 01/25/23 13:30 01/25/23 13:59 DC 01/25/23 13:28 100 MLS/HR Iohexol 100 ml ONCE ONCE IV 01/25/23 14:30 01/25/23 14:31 DC 01/25/23 14:24 80 ML Sodium Chloride 100 ml ONCE ONCE IV 01/25/23 14:30 01/25/23 14:31 DC 01/25/23 14:24 80 ML Vital Signs/I&O 01/25/23 12:15 Temp 37.0 Pulse 77 Resp 14 B/P (MAP) 171/68 (102) O2 Delivery Room Air Capillary Refill : Progress Note : Progress Note 1. VAGINAL BLEEDING: - CT ABD/ PELVIS: Bilateral nonobstructing nephrolithiasis, similar to prior exam. No ureteral calculi or hydronephrosis is detected. There did appear to be several small bladder calculi present. Uncomplicated diverticulosis. Left obturator lymphadenopathy. No other significant abnormality is detected. - CBC: Hb is 9.2, last Hb done at was 10 - CMP/protime/PTT/ INR: unremarkable - Pt has saturated 2 sanitary napkins in the ER - Pt's oncologist in [place], [place] is Dr. Sierra, and her radiation oncologist at is Dr Jean. 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 Pt accepted to for admission by oncologist - [facility] is short staffed and already has multiple transfers and will not be able to transport pt to at this time. Will need to fly pt to . Pt and family agrees to plan. 2.ACUTE CYSTITIS: - Macroscopic urine : cloudy, no blood - UA is positive for LE, WBC, bacteria. No RBC's - Ceftriaxone 1gm iv STAT Diagnostic Imaging Diagonstic Imaging: CT Plain Films/CT/US/NM/MRI: chest Comments [facility]. [place], [place] NAME: NAVARROPATRICK A MED REC#: [id number] PT STATUS: REG ER : 1950 PHYSICIAN: DWIGHT LOPES MD ADMIT DATE: 01/25/23/ER FS Draft Date of Exam:01/25/23 CT ABDOMEN/PELVIS W PROCEDURE: CT abdomen and pelvis with contrast. TECHNIQUE: Multiple contiguous axial images were obtained through the abdomen and pelvis after administration of intravenous contrast. Auto Exposure Controls were utilized during the CT exam to meet ALARA standards for radiation dose reduction. All CT scans use one or more of the following dose optimizing techniques: automated exposure control, MA and/or KvP adjustment based on patient size and exam type or iterative reconstruction. INDICATION: Vaginal bleeding. Patient has history of cervical carcinoma. Comparison is made with prior CT from 12/13/2021. Lung bases are clear of acute infiltrates. There is some scarring or atelectasis bilateral lower lobes. No liver mass is detected. There is no biliary duct dilatation. Pancreas and spleen are unremarkable. No adrenal mass is identified. Multiple bilateral nonobstructing renal calculi are noted. A large calculus in the left renal pelvis is again noted. No definite ureteral calculi are identified. There is some high density material noted within the bladder base on the right side which could represent small calculi. Aorta is nonaneurysmal. No central retroperitoneal or mesenteric lymphadenopathy is detected. The bowel loops are nonobstructed. There is extensive diverticulosis of the descending and sigmoid colon but no evidence of acute diverticulitis. Uterus is unremarkable. There is edema within the subcutaneous tissues of bilateral flanks but no discrete fluid collection is identified. There does appear to be an enlarged left obturator lymph node measuring 1.9 x 1.3 cm. IMPRESSION: Bilateral nonobstructing nephrolithiasis, similar to prior exam. No ureteral calculi or hydronephrosis is detected. There did appear to be several small bladder calculi present. Uncomplicated diverticulosis. Left obturator lymphadenopathy. No other significant abnormality is detected. Dictated on workstation # [id number] Dict: 01/25/23 1430 Trans: 01/25/23 1442 [facility] [id number] Interpreted by: LORENA YANG MD Electronically signed by: Departure Impression Primary Impression: Vaginal bleeding, abnormal Additional Impression: Acute cystitis without hematuria Disposition: 02 XFER SHT-TRM HOSP Condition: Stable Admissions Decision to Admit Reason: Admit from ER (General) Decision to Admit/Date: Jan 25, 2023 Time/Decision to Admit Time: 12:53 Transfer Medically Cleared for Xfer: Yes Transfer Reason: Exceeds level of care Time Spoke to Accepting Phy: 13:48 Transfer Progress Notes Discussed with MANUFACTURING CONTROLLER-oncology, Dr Arshad, and accepted for transfer Transfer Facility: Method of Transfer: Air Departure-Patient Inst. Referrals: LEONORA FLEMING DO (PCP) Primary Care Physician DWIGHT LOPES MD Jan 25, 2023 12:19
[2023-01-25 12:44] LABS: BASOPHILS % (AUTO) 1 % (0-10); EOSINOPHILS # (AUTO) 0.2 10^3/uL (0.0-0.3); EOSINOPHILS % (AUTO) 5 % (0-10); HEMATOCRIT 30 % (35-52); HEMOGLOBIN 9.2 g/dL (11.5-16.0); LYMPHOCYTES % (AUTO) 26 % (12-44); MEAN CORPUSCULAR HEMOGLOBIN 28 pg (25-34); MEAN CORPUSCULAR HGB CONC 31 g/dL (32-36); MEAN CORPUSCULAR VOLUME 91 fL (80-99); MONOCYTES # (AUTO) 0.2 10^3/uL (0.0-1.0); MONOCYTES % (AUTO) 6 % (0-12); NEUTROPHILS # (AUTO) 2.4 10^3/uL (1.8-7.8); NEUTROPHILS % (AUTO) 62 % (42-75); PLATELET COUNT 184 10^3/uL (130-400); WHITE BLOOD COUNT 3.9 10^3/uL (4.3-11.0)
[2023-01-25 13:06] LABS: CLARITY,URINE TURBID; COLOR,URINE YELLOW; GLUCOSE, URINE (UA) NEGATIVE (NEGATIVE); KETONES,URINE NEGATIVE (NEGATIVE); NITRITE,URINE NEGATIVE (NEGATIVE); PROTEIN,URINE 2+ (NEGATIVE)
[2023-01-25 13:07] LABS: BACTERIA,URINE LARGE /HPF; BILIRUBIN,URINE NEGATIVE (NEGATIVE); LEUKOCYTE ESTERASE ,URINE 3+ (NEGATIVE); WBC,URINE TNTC /HPF
[2023-01-25 13:09] LABS: PROTHROMBIN TIME PATIENT 13.6 SEC (12.2-14.7)
[2023-01-25 13:10] LABS: ALBUMIN 3.1 GM/DL (3.2-4.5); BILIRUBIN,TOTAL 0.3 MG/DL (0.1-1.0); CALCIUM 8.7 MG/DL (8.5-10.1); CREATININE SERUM 0.66 MG/DL (0.60-1.30); MAGNESIUM 1.5 MG/DL (1.6-2.4); POTASSIUM 4.1 MMOL/L (3.6-5.0); TOTAL PROTEIN 7.3 GM/DL (6.4-8.2)
[2023-01-25] MEDS ORDERED: cefTRIAXone IV/IM 1,000 MG in NS (IVPB) 50 ML 50 ML IV ONE (13:30)
[2023-01-25] MEDS ORDERED: HOLD METFORMIN - RECEIVED CONTRAST 20 ML VIAL IV SCH (14:30)
[2023-01-25] MEDS ORDERED: IOHEXOL 350 MG/ML 100 ML (OMNIPAQUE 350) VIAL IV ONE (14:30)
[2023-01-25] MEDS ORDERED: NS 100 ML (IVPB) BAG IV ONE (14:30)
--- NOTE | 2023-01-25 14:42 | Diagnostic Imaging Report ---
PROCEDURE: CT abdomen and pelvis with contrast. TECHNIQUE: Multiple contiguous axial images were obtained through the abdomen and pelvis after administration of intravenous contrast. Auto Exposure Controls were utilized during the CT exam to meet ALARA standards for radiation dose reduction. All CT scans use one or more of the following dose optimizing techniques: automated exposure control, MA and/or KvP adjustment based on patient size and exam type or iterative reconstruction. INDICATION: Vaginal bleeding. Patient has history of cervical carcinoma. Comparison is made with prior CT from 12/13/2021. Lung bases are clear of acute infiltrates. There is some scarring or atelectasis bilateral lower lobes. No liver mass is detected. There is no biliary duct dilatation. Pancreas and spleen are unremarkable. No adrenal mass is identified. Multiple bilateral nonobstructing renal calculi are noted. A large calculus in the left renal pelvis is again noted. No definite ureteral calculi are identified. There is some high density material noted within the bladder base on the right side which could represent small calculi. Aorta is nonaneurysmal. No central retroperitoneal or mesenteric lymphadenopathy is detected. The bowel loops are nonobstructed. There is extensive diverticulosis of the descending and sigmoid colon but no evidence of acute diverticulitis. Uterus is unremarkable. There is edema within the subcutaneous tissues of bilateral flanks but no discrete fluid collection is identified. There does appear to be an enlarged left obturator lymph node measuring 1.9 x 1.3 cm. IMPRESSION: Bilateral nonobstructing nephrolithiasis, similar to prior exam. No ureteral calculi or hydronephrosis is detected. There did appear to be several small bladder calculi present. Uncomplicated diverticulosis. Left obturator lymphadenopathy. No other significant abnormality is detected. Dictated by: Dictated on workstation # [id number]
[2023-01-25 16:38] VITALS: BP 156/67
== END 2023-01-25 16:38 | disposition short-term general hospital (02) ==
LOC: EDUNIT# 12:15 → ER FS 12:17
DX: N93.9 Abnormal uterine and vaginal bleeding, unspecified (principal); N30.00 Acute cystitis without hematuria; N21.0 Calculus in bladder; N20.0 Calculus of kidney; K57.30 Diverticulosis of large intestine without perforation or abscess without bleeding; R59.1 Generalized enlarged lymph nodes; E11.9 Type 2 diabetes mellitus without complications; Z79.4 Long term (current) use of insulin; Z98.890 Other specified postprocedural states; Z90.49 Acquired absence of other specified parts of digestive tract; Z88.1 Allergy status to other antibiotic agents; Z88.2 Allergy status to sulfonamides; Z88.0 Allergy status to penicillin
CPT/HCPCS: 36415; 74177; 80053; 81000; 83735; 85025; 85610; 85730; 87077; 87088; 87186; Q9967